=== PATIENT | male | born 1995 | race African-American/Black ===

== ENCOUNTER 2017-07-24 18:21 | Inpatient (IN) | payer BC, MEDICAID ==
[~2017-07-24] VITALS: Ht 144.8 cm; Wt 46.3 kg
[2017-07-24 18:21] VITALS: BP_SYST 125
[~2017-07-24 18:21] MED LIST: ALPR0.2583 PO; AMLO2.5T50 PO; BACL20TA PO; BENA20TA2 PO; CAT3PAT TD; CITR15SO PO; DEPAK250 GT; FAMO20TA8 GT; FLUD0.1T PO; LATA2.5D2 OP; MAGN400T10 GT; MELA5TAB12 PO; METO100T3 PO; PARO20TA51 PO; POTA20PA4 GT; ZOLP5TAB2 PO
[2017-07-24] MEDS ORDERED: NS 500 ML IV ONE ×2 (19:00→19:45)
[2017-07-24] MEDS ORDERED: VANCOMYCIN HCL 1,000 MG in NS 250 ML IV ONE (19:15)
[2017-07-24] MEDS ORDERED: PIPERACILLIN/TAZO 3.375 GM in NS 50 ML IV ONE (19:15)
[2017-07-24 19:26] LABS: MEAN CORPUSCULAR HEMOGLOBIN 32 pg (27-31); MEAN CORPUSCULAR HGB CONC 34 % (32-36); RED CELL DISTRIBUTION WIDTH 13.2 % (9.0-15.0)
[2017-07-24 19:29] LABS: HEMATOCRIT 32.7 % (36-54); HEMOGLOBIN 11.1 g/dL (14.0-18.0); MEAN CORPUSCULAR VOLUME 95 fL (79.0-98.0); RED BLOOD CELL COUNT(AUTO) 3.45 MIL/uL (4.2-6.2)
[2017-07-24] MEDS ORDERED: IPRATROPIUM/ALBUTEROL SULFATE 3 ML AMPUL.NEB INH ONE (19:30)
[2017-07-24 19:35] LABS: CALCIUM 9.8 mg/dL (8.4-11.0)
[2017-07-24] MEDS ORDERED: PIPERACILLIN/TAZOBACTAM 3.375 GM/VIAL (ZOSYN) IV ONE (19:35)
[2017-07-24 19:40] LABS: ALBUMIN 2.4 g/dL (3.4-4.8); PLATELET COUNT (AUTO) 783 K/uL (130-430); TOTAL BILIRUBIN 0.2 mg/dL (0.0-1.0)
[2017-07-24] MEDS ORDERED: POTASSIUM CHLORIDE 20 MEQ/PKT PACKET GT ONE (19:45)
[2017-07-24 19:57] LABS: ATYPICAL LYMPHOCYTES % 0 % (0-0); BAND % (MANUAL) 3 % (0-6); BASOPHILS % (MANUAL) 0 % (0-2); EOSINOPHILS % (MANUAL) 0 % (0-7); LYMPHOCYTES % (MANUAL) 35 % (20-46); METAMYELOCYTES % 2 % (0-0); MONOCYTES % (MANUAL) 6 % (0-11); MYELOCYTES % 4 % (0-0)
[2017-07-24] MEDS ORDERED: VANCOMYCIN HCL 1000 MG/VIAL IV ONE (20:44)
[2017-07-24] MEDS ORDERED: ALBUTEROL SULFATE 0.083% 2.5 MG/3 ML VIAL.NEB INH PRN (20:45)
[2017-07-24 21:33] VITALS: BP_SYST 159
[2017-07-24 21:59] VITALS: BP_SYST 159
[2017-07-25 08:00] VITALS: BP_SYST 131
[2017-07-25] MEDS ORDERED: VALPROIC ACID 250 MG CAPSULE (DEPAKENE) ONE (08:53)
[2017-07-25] MEDS: LEVOFLOXACIN 500 MG/D5W 100 ML IV SCH (08:59)
[2017-07-25] MEDS ORDERED: VALPROIC ACID 250 MG CAPSULE (DEPAKENE) GT SCH (09:00)
[2017-07-25] MEDS ORDERED: BENA10TA2 GT (10:11)
[2017-07-25] MEDS ORDERED: DEXL30CA3 GT (10:11)
[2017-07-25] MEDS ORDERED: PARO-41 GT (10:11)
[2017-07-25] MEDS ORDERED: AMLO5TAB4 GT (10:11)
[2017-07-25] MEDS ORDERED: FLOR.1 GT (10:11)
[2017-07-25] MEDS ORDERED: METO-442 GT (10:19)
[2017-07-25] MEDS ORDERED: GLUXR500 GT (10:19)
[2017-07-25] MEDS ORDERED: NYSCR30 TP (10:19)
[2017-07-25] MEDS ORDERED: [UNRECOGNIZED DRUG - CODE] GT (10:19)
[2017-07-25] MEDS ORDERED: TRIA80OI TP (10:19)
[2017-07-25] MEDS ORDERED: HYD10 GT (10:19)
[2017-07-25] MEDS: D5NS 1,000 ML IV SCH ×2 (10:42→22:35)
[2017-07-25 10:48] LABS: HEMATOCRIT 29.6 % (36-54); HEMOGLOBIN 10.2 g/dL (14.0-18.0); MEAN CORPUSCULAR HEMOGLOBIN 33 pg (27-31); MEAN CORPUSCULAR HGB CONC 35 % (32-36); MEAN CORPUSCULAR VOLUME 94 fL (79.0-98.0); PLATELET COUNT (AUTO) 673 K/uL (130-430); RED BLOOD CELL COUNT(AUTO) 3.15 MIL/uL (4.2-6.2); RED CELL DISTRIBUTION WIDTH 13.7 % (9.0-15.0); WHITE BLOOD COUNT (AUTO) 15.6 K/uL (4.8-10.8)
[2017-07-25 11:00] LABS: CREATININE 0.88 mg/dL (0.55-1.30); POTASSIUM 3.8 mmol/L (3.5-5.1)
[2017-07-25 11:05] LABS: TOTAL BILIRUBIN 0.2 mg/dL (0.0-1.0)
[2017-07-25 11:44] VITALS: BP_SYST 128
[2017-07-25 11:54] LABS: BAND % (MANUAL) 2 % (0-6); BASOPHILS % (MANUAL) 0 % (0-2); EOSINOPHILS % (MANUAL) 0 % (0-7); LYMPHOCYTES % (MANUAL) 18 % (20-46); MONOCYTES % (MANUAL) 13 % (0-11)
[2017-07-25 11:55] LABS: METAMYELOCYTES % 8 % (0-0); MYELOCYTES % 1 % (0-0)
[2017-07-25] MEDS ORDERED: PIPERACILLIN/TAZO 3.375/DEX-IS 50 ML IV SCH (14:45)
[2017-07-25] MEDS ORDERED: COMMUNICATION ORDER XX ONE (15:00)
[2017-07-25] MEDS ORDERED: FLUDROCORTISONE ACETATE 0.1 MG TABLET( FLORINEF) PO ONE (15:45)
[2017-07-25] MEDS ORDERED: FLUDROCORTISONE ACETATE 0.1 MG TABLET( FLORINEF) GT ONE (15:45)
[2017-07-25 16:23] VITALS: BP_SYST 136
[2017-07-25] MEDS: PIPERACILLIN/TAZO 3.375/DEX-IS 50 ML IV SCH ×2 (16:36→22:25)
[2017-07-25] MEDS ORDERED: HYDROCORTISONE 10 MG TABLET (CORTEF) PO SCH (18:00)
[2017-07-25 19:55] VITALS: BP_SYST 144
[2017-07-25] MEDS: LEVALBUTEROL HCL 0.63 MG/3 ML VIAL.NEB INH SCH (20:47)
[2017-07-25] MEDS: METOPROLOL TARTRATE 50 MG TABLET GT SCH (22:22)
[2017-07-25] MEDS: amLODIPine BESYLATE 5 MG TABLET GT SCH (22:23)
[2017-07-25] MEDS: VALPROIC ACID ORAL SYRUP 250 MG/5 ML UDC GT SCH (22:24)
[2017-07-26 00:07] VITALS: BP_SYST 128
[2017-07-26] MEDS: LEVALBUTEROL HCL 0.63 MG/3 ML VIAL.NEB INH SCH ×4 (02:21→20:15)
[2017-07-26] MEDS: PIPERACILLIN/TAZO 3.375/DEX-IS 50 ML IV SCH ×4 (03:46→22:22)
[2017-07-26 07:33] LABS: ALBUMIN 1.8 g/dL (3.4-4.8); CALCIUM 9.1 mg/dL (8.4-11.0); POTASSIUM 3.9 mmol/L (3.5-5.1); TOTAL BILIRUBIN 0.2 mg/dL (0.0-1.0)
[2017-07-26 08:00] VITALS: BP_SYST 149
[2017-07-26 08:46] LABS: HEMOGLOBIN 9.9 g/dL (14.0-18.0); MEAN CORPUSCULAR HEMOGLOBIN 32 pg (27-31); MEAN CORPUSCULAR HGB CONC 34 % (32-36); MEAN CORPUSCULAR VOLUME 94 fL (79.0-98.0); PLATELET COUNT (AUTO) 671 K/uL (130-430); RED BLOOD CELL COUNT(AUTO) 3.09 MIL/uL (4.2-6.2); WHITE BLOOD COUNT (AUTO) 16.7 K/uL (4.8-10.8)
[2017-07-26 08:55] LABS: BAND % (MANUAL) 6 % (0-6); BASOPHILS % (MANUAL) 0 % (0-2); EOSINOPHILS % (MANUAL) 0 % (0-7); LYMPHOCYTES % (MANUAL) 20 % (20-46); METAMYELOCYTES % 4 % (0-0); MONOCYTES % (MANUAL) 12 % (0-11); MYELOCYTES % 2 % (0-0)
[2017-07-26] MEDS: amLODIPine BESYLATE 5 MG TABLET GT SCH ×2 (09:46→20:33)
[2017-07-26] MEDS: HYDROCORTISONE 10 MG TABLET (CORTEF) GT SCH ×2 (09:48→17:51)
[2017-07-26] MEDS: METOPROLOL TARTRATE 50 MG TABLET GT SCH ×2 (09:48→20:30)
[2017-07-26] MEDS: FLUDROCORTISONE ACETATE 0.1 MG TABLET( FLORINEF) GT SCH (09:48)
[2017-07-26] MEDS: VALPROIC ACID ORAL SYRUP 250 MG/5 ML UDC GT SCH ×2 (09:49→20:35)
[2017-07-26] MEDS: LEVOFLOXACIN 500 MG/D5W 100 ML IV SCH (11:21)
[2017-07-26 12:01] VITALS: BP_SYST 130
[2017-07-26 16:07] VITALS: BP_SYST 128
[2017-07-26] MEDS: D5/0.45 NS 1,000 ML IV SCH (16:38)
[2017-07-26 20:15] VITALS: BP_SYST 169
[2017-07-26] MEDS: PARoxetine HCL 20 MG TABLET GT SCH (20:34)
[2017-07-27 00:41] VITALS: BP_SYST 131
[2017-07-27] MEDS: LEVALBUTEROL HCL 0.63 MG/3 ML VIAL.NEB INH SCH ×4 (01:09→20:26)
[2017-07-27] MEDS: PIPERACILLIN/TAZO 3.375/DEX-IS 50 ML IV SCH ×4 (04:13→21:51)
[2017-07-27 06:58] LABS: EOSINOPHILS % (AUTO) 0.1 % (0.0-4.0); LYMPHOCYTES % (AUTO) 17.6 % (20.5-51.5); MONOCYTES % (AUTO) 9.9 % (1.7-9.3)
[2017-07-27 07:09] LABS: CALCIUM 8.9 mg/dL (8.4-11.0); CREATININE 0.9 mg/dL (0.55-1.30)
[2017-07-27 07:10] LABS: BASOPHILS % (AUTO) 0.1 % (0.0-2.0); HEMATOCRIT 26.9 % (36-54); HEMOGLOBIN 9.4 g/dL (14.0-18.0); LYMPHOCYTES # (AUTO) 2.7 K/uL (1.0-5.5); MEAN CORPUSCULAR HEMOGLOBIN 33 pg (27-31); MEAN CORPUSCULAR HGB CONC 35 % (32-36); MEAN CORPUSCULAR VOLUME 94 fL (79.0-98.0); MONOCYTES # (AUTO) 1.5 K/uL (0.0-1.0); NEUTROPHILS # (AUTO) 11.1 K/uL (1.8-7.7); RED BLOOD CELL COUNT(AUTO) 2.85 MIL/uL (4.2-6.2); RED CELL DISTRIBUTION WIDTH 12.8 % (9.0-15.0); WHITE BLOOD COUNT (AUTO) 15.3 K/uL (4.8-10.8)
[2017-07-27 07:36] LABS: PLATELET COUNT (AUTO) 862 K/uL (130-430)
[2017-07-27 08:06] VITALS: BP_SYST 158
[2017-07-27 08:33] LABS: NEUTROPHILS % (AUTO) 72.3 % (40.0-70.0)
[2017-07-27] MEDS: METOPROLOL TARTRATE 50 MG TABLET GT SCH ×2 (08:46→20:12)
[2017-07-27] MEDS: FLUDROCORTISONE ACETATE 0.1 MG TABLET( FLORINEF) GT SCH (08:47)
[2017-07-27] MEDS: amLODIPine BESYLATE 5 MG TABLET GT SCH ×2 (08:48→20:13)
[2017-07-27] MEDS: HYDROCORTISONE 10 MG TABLET (CORTEF) GT SCH ×2 (08:48→18:00)
[2017-07-27] MEDS: PARoxetine HCL 20 MG TABLET GT SCH ×2 (08:48→20:12)
[2017-07-27] MEDS: VALPROIC ACID ORAL SYRUP 250 MG/5 ML UDC GT SCH ×2 (08:51→20:13)
[2017-07-27] MEDS: LEVOFLOXACIN 500 MG/D5W 100 ML IV SCH (08:53)
[2017-07-27] MEDS: D5/0.45 NS 1,000 ML IV SCH (10:42)
[2017-07-27] MEDS ORDERED: POTASSIUM CHLORIDE 20 MEQ/PKT PACKET PO ONE (11:15)
[2017-07-27 12:19] VITALS: BP_SYST 142
[2017-07-27 16:00] VITALS: BP_SYST 121
[2017-07-27 16:03] VITALS: BP_SYST 121
[2017-07-27 20:10] VITALS: BP_SYST 162
[2017-07-28] VITALS (7 sets, daily range): BP systolic 115–159
[2017-07-28] MEDS: LEVALBUTEROL HCL 0.63 MG/3 ML VIAL.NEB INH SCH ×4 (01:41→20:34)
[2017-07-28] MEDS: PIPERACILLIN/TAZO 3.375/DEX-IS 50 ML IV SCH ×4 (04:31→21:40)
[2017-07-28 07:12] LABS: BASOPHILS % (AUTO) 0.2 % (0.0-2.0); EOSINOPHILS % (AUTO) 0.1 % (0.0-4.0); HEMOGLOBIN 10.1 g/dL (14.0-18.0); LYMPHOCYTES # (AUTO) 2.6 K/uL (1.0-5.5); LYMPHOCYTES % (AUTO) 18.6 % (20.5-51.5); MEAN CORPUSCULAR HEMOGLOBIN 33 pg (27-31); MEAN CORPUSCULAR HGB CONC 35 % (32-36); MEAN CORPUSCULAR VOLUME 94 fL (79.0-98.0); MONOCYTES # (AUTO) 1.7 K/uL (0.0-1.0); MONOCYTES % (AUTO) 12.3 % (1.7-9.3); NEUTROPHILS # (AUTO) 9.6 K/uL (1.8-7.7); NEUTROPHILS % (AUTO) 68.8 % (40.0-70.0); RED BLOOD CELL COUNT(AUTO) 3.07 MIL/uL (4.2-6.2); RED CELL DISTRIBUTION WIDTH 13.3 % (9.0-15.0)
[2017-07-28 07:26] LABS: PLATELET COUNT (AUTO) 982 K/uL (130-430)
[2017-07-28 07:27] LABS: WHITE BLOOD COUNT (AUTO) 13.9 K/uL (4.8-10.8)
[2017-07-28 07:34] LABS: CALCIUM 9.7 mg/dL (8.4-11.0); CREATININE 0.91 mg/dL (0.55-1.30); POTASSIUM 3.5 mmol/L (3.5-5.1)
[2017-07-28] MEDS: VALPROIC ACID ORAL SYRUP 250 MG/5 ML UDC GT SCH ×2 (09:04→21:40)
[2017-07-28] MEDS: LEVOFLOXACIN 500 MG/D5W 100 ML IV SCH (09:05)
[2017-07-28] MEDS: FLUDROCORTISONE ACETATE 0.1 MG TABLET( FLORINEF) GT SCH (09:05)
[2017-07-28] MEDS: METOPROLOL TARTRATE 50 MG TABLET GT SCH ×2 (09:06→21:42)
[2017-07-28] MEDS: amLODIPine BESYLATE 5 MG TABLET GT SCH ×2 (09:07→21:42)
[2017-07-28] MEDS: PARoxetine HCL 20 MG TABLET GT SCH ×2 (09:08→21:42)
[2017-07-28] MEDS: HYDROCORTISONE 10 MG TABLET (CORTEF) GT SCH ×2 (09:08→17:19)
[2017-07-28] MEDS: D5/0.45 NS 1,000 ML IV SCH (17:41)
[2017-07-29] MEDS ORDERED: ACETAMINOPHEN 650 MG/20.3 ML UDC GT PRN (01:00)
[2017-07-29 01:04] VITALS: BP_SYST 157
[2017-07-29] MEDS: LEVALBUTEROL HCL 0.63 MG/3 ML VIAL.NEB INH SCH ×4 (01:07→19:36)
[2017-07-29] MEDS: PIPERACILLIN/TAZO 3.375/DEX-IS 50 ML IV SCH ×4 (03:43→22:10)
[2017-07-29 04:11] VITALS: BP_SYST 155
[2017-07-29 06:38] LABS: BASOPHILS % (AUTO) 0.1 % (0.0-2.0); EOSINOPHILS % (AUTO) 0.2 % (0.0-4.0); HEMATOCRIT 31.2 % (36-54); HEMOGLOBIN 10.6 g/dL (14.0-18.0); LYMPHOCYTES # (AUTO) 2.8 K/uL (1.0-5.5); LYMPHOCYTES % (AUTO) 20.9 % (20.5-51.5); MEAN CORPUSCULAR HEMOGLOBIN 32 pg (27-31); MEAN CORPUSCULAR HGB CONC 34 % (32-36); MEAN CORPUSCULAR VOLUME 94 fL (79.0-98.0); MONOCYTES # (AUTO) 1.5 K/uL (0.0-1.0); MONOCYTES % (AUTO) 11.3 % (1.7-9.3); NEUTROPHILS # (AUTO) 8.9 K/uL (1.8-7.7); NEUTROPHILS % (AUTO) 67.5 % (40.0-70.0); RED BLOOD CELL COUNT(AUTO) 3.33 MIL/uL (4.2-6.2); RED CELL DISTRIBUTION WIDTH 13.1 % (9.0-15.0); WHITE BLOOD COUNT (AUTO) 13.2 K/uL (4.8-10.8)
[2017-07-29 06:59] LABS: CALCIUM 10.2 mg/dL (8.4-11.0); CREATININE 0.86 mg/dL (0.55-1.30); POTASSIUM 3.1 mmol/L (3.5-5.1)
[2017-07-29 07:32] LABS: PLATELET COUNT (AUTO) 967 K/uL (130-430)
[2017-07-29 07:55] VITALS: BP_SYST 170
[2017-07-29] MEDS: PARoxetine HCL 20 MG TABLET GT SCH ×2 (08:38→20:18)
[2017-07-29] MEDS: HYDROCORTISONE 10 MG TABLET (CORTEF) GT SCH ×2 (08:39→17:42)
[2017-07-29] MEDS: METOPROLOL TARTRATE 50 MG TABLET GT SCH ×2 (08:40→20:18)
[2017-07-29] MEDS: amLODIPine BESYLATE 5 MG TABLET GT SCH ×2 (08:41→20:17)
[2017-07-29] MEDS: FLUDROCORTISONE ACETATE 0.1 MG TABLET( FLORINEF) GT SCH (08:42)
[2017-07-29] MEDS: LEVOFLOXACIN 500 MG/D5W 100 ML IV SCH (08:43)
[2017-07-29] MEDS: VALPROIC ACID ORAL SYRUP 250 MG/5 ML UDC GT SCH ×2 (08:44→20:15)
[2017-07-29] MEDS ORDERED: POTASSIUM CHLORIDE 20 MEQ/PKT PACKET PO ONE (10:30)
[2017-07-29 12:00] VITALS: BP_SYST 158
[2017-07-29 16:00] VITALS: BP_SYST 132
[2017-07-29 20:00] VITALS: BP_SYST 162
[2017-07-29] MEDS: cloNIDine HCL 0.1 MG TABLET GT PRN (20:19)
[2017-07-29] MEDS: D5/0.45 NS 1,000 ML IV SCH (23:26)
[2017-07-30] MEDS: LEVALBUTEROL HCL 0.63 MG/3 ML VIAL.NEB INH SCH ×4 (00:50→19:58)
[2017-07-30 00:54] VITALS: BP_SYST 145
[2017-07-30] MEDS: PIPERACILLIN/TAZO 3.375/DEX-IS 50 ML IV SCH ×4 (03:08→23:33)
[2017-07-30] MEDS: D5/0.45 NS 1,000 ML IV SCH (05:28)
[2017-07-30 06:35] LABS: BASOPHILS % (AUTO) 0.3 % (0.0-2.0); EOSINOPHILS # (AUTO) 0.1 K/uL (0.0-0.4); EOSINOPHILS % (AUTO) 0.4 % (0.0-4.0); HEMATOCRIT 27.4 % (36-54); HEMOGLOBIN 9.3 g/dL (14.0-18.0); LYMPHOCYTES # (AUTO) 3.3 K/uL (1.0-5.5); LYMPHOCYTES % (AUTO) 23.6 % (20.5-51.5); MEAN CORPUSCULAR HEMOGLOBIN 31 pg (27-31); MEAN CORPUSCULAR HGB CONC 34 % (32-36); MEAN CORPUSCULAR VOLUME 91 fL (79.0-98.0); MONOCYTES # (AUTO) 1.3 K/uL (0.0-1.0); MONOCYTES % (AUTO) 9.3 % (1.7-9.3); NEUTROPHILS # (AUTO) 9.3 K/uL (1.8-7.7); NEUTROPHILS % (AUTO) 66.4 % (40.0-70.0); RED BLOOD CELL COUNT(AUTO) 2.99 MIL/uL (4.2-6.2); RED CELL DISTRIBUTION WIDTH 13.4 % (9.0-15.0)
[2017-07-30 06:46] LABS: PLATELET COUNT (AUTO) 837 K/uL (130-430)
[2017-07-30 06:49] LABS: CREATININE 0.82 mg/dL (0.55-1.30); POTASSIUM 3.3 mmol/L (3.5-5.1)
[2017-07-30 07:45] VITALS: BP_SYST 167
[2017-07-30] MEDS: HYDROCORTISONE 10 MG TABLET (CORTEF) GT SCH ×2 (08:28→17:13)
[2017-07-30] MEDS: PARoxetine HCL 20 MG TABLET GT SCH ×2 (08:28→20:42)
[2017-07-30] MEDS: METOPROLOL TARTRATE 50 MG TABLET GT SCH ×2 (08:28→20:44)
[2017-07-30] MEDS: FLUDROCORTISONE ACETATE 0.1 MG TABLET( FLORINEF) GT SCH (08:29)
[2017-07-30] MEDS: amLODIPine BESYLATE 5 MG TABLET GT SCH ×2 (08:30→20:43)
[2017-07-30] MEDS: LEVOFLOXACIN 500 MG/D5W 100 ML IV SCH (08:31)
[2017-07-30] MEDS: VALPROIC ACID ORAL SYRUP 250 MG/5 ML UDC GT SCH ×2 (08:33→20:41)
[2017-07-30] MEDS ORDERED: POTASSIUM CHLORIDE 20 MEQ/PKT PACKET GT ONE (10:00)
[2017-07-30 11:42] VITALS: BP_SYST 148
[2017-07-30 16:47] VITALS: BP_SYST 148
[2017-07-30 17:22] VITALS: BP_SYST 144
[2017-07-30 20:00] VITALS: BP_SYST 167
[2017-07-30] MEDS: cloNIDine HCL 0.1 MG TABLET GT PRN (20:42)
[2017-07-31] VITALS: BP_SYST 124
[2017-07-31] MEDS: LEVALBUTEROL HCL 0.63 MG/3 ML VIAL.NEB INH SCH ×4 (00:52→19:29)
[2017-07-31] MEDS: D5/0.45 NS 1,000 ML IV SCH (05:02)
[2017-07-31] MEDS: PIPERACILLIN/TAZO 3.375/DEX-IS 50 ML IV SCH ×3 (05:15→18:34)
[2017-07-31 06:31] LABS: BASOPHILS % (AUTO) 0.3 % (0.0-2.0); EOSINOPHILS # (AUTO) 0.1 K/uL (0.0-0.4); EOSINOPHILS % (AUTO) 0.4 % (0.0-4.0); HEMATOCRIT 27.3 % (36-54); HEMOGLOBIN 9.4 g/dL (14.0-18.0); LYMPHOCYTES # (AUTO) 3.9 K/uL (1.0-5.5); LYMPHOCYTES % (AUTO) 24.4 % (20.5-51.5); MEAN CORPUSCULAR HEMOGLOBIN 32 pg (27-31); MEAN CORPUSCULAR HGB CONC 34 % (32-36); MEAN CORPUSCULAR VOLUME 92 fL (79.0-98.0); MONOCYTES # (AUTO) 1.2 K/uL (0.0-1.0); MONOCYTES % (AUTO) 7.7 % (1.7-9.3); NEUTROPHILS % (AUTO) 67.2 % (40.0-70.0); RED BLOOD CELL COUNT(AUTO) 2.96 MIL/uL (4.2-6.2); RED CELL DISTRIBUTION WIDTH 13.4 % (9.0-15.0); WHITE BLOOD COUNT (AUTO) 16.2 K/uL (4.8-10.8)
[2017-07-31 07:01] LABS: CALCIUM 10.2 mg/dL (8.4-11.0); CREATININE 0.89 mg/dL (0.55-1.30); POTASSIUM 3.7 mmol/L (3.5-5.1)
[2017-07-31 08:14] LABS: PLATELET COUNT (AUTO) 830 K/uL (130-430)
[2017-07-31 08:36] VITALS: BP_SYST 138
[2017-07-31] MEDS: VALPROIC ACID ORAL SYRUP 250 MG/5 ML UDC GT SCH ×2 (09:23→20:14)
[2017-07-31] MEDS: LEVOFLOXACIN 500 MG/D5W 100 ML IV SCH (09:23)
[2017-07-31] MEDS: FLUDROCORTISONE ACETATE 0.1 MG TABLET( FLORINEF) GT SCH (09:24)
[2017-07-31] MEDS: HYDROCORTISONE 10 MG TABLET (CORTEF) GT SCH ×2 (09:24→18:34)
[2017-07-31] MEDS: amLODIPine BESYLATE 5 MG TABLET GT SCH ×2 (09:24→20:17)
[2017-07-31] MEDS: PARoxetine HCL 20 MG TABLET GT SCH ×2 (09:25→20:14)
[2017-07-31] MEDS: METOPROLOL TARTRATE 50 MG TABLET GT SCH ×2 (09:25→20:15)
[2017-07-31 12:27] VITALS: BP_SYST 159
[2017-07-31] MEDS ORDERED: BARIUM SULFATE 135 ML SUSP.RECON (E-Z-HD) PO ONE (13:10)
[2017-07-31 16:09] VITALS: BP_SYST 156
[2017-07-31 20:03] VITALS: BP_SYST 175
[2017-07-31 22:20] VITALS: BP_SYST 158
[2017-08-01] MEDS: PIPERACILLIN/TAZO 3.375/DEX-IS 50 ML IV SCH ×4 (00:04→17:10)
[2017-08-01] MEDS: LEVALBUTEROL HCL 0.63 MG/3 ML VIAL.NEB INH SCH ×4 (01:14→20:44)
[2017-08-01 01:29] VITALS: BP_SYST 148
[2017-08-01] MEDS: D5/0.45 NS 1,000 ML IV SCH (05:28)
[2017-08-01 06:53] LABS: BASOPHILS % (AUTO) 0.3 % (0.0-2.0); EOSINOPHILS # (AUTO) 0.1 K/uL (0.0-0.4); EOSINOPHILS % (AUTO) 0.5 % (0.0-4.0); LYMPHOCYTES # (AUTO) 3.4 K/uL (1.0-5.5); LYMPHOCYTES % (AUTO) 23.1 % (20.5-51.5); MEAN CORPUSCULAR HEMOGLOBIN 32 pg (27-31); MEAN CORPUSCULAR HGB CONC 35 % (32-36); MEAN CORPUSCULAR VOLUME 93 fL (79.0-98.0); NEUTROPHILS # (AUTO) 10.3 K/uL (1.8-7.7); NEUTROPHILS % (AUTO) 69.1 % (40.0-70.0); RED BLOOD CELL COUNT(AUTO) 3.13 MIL/uL (4.2-6.2); RED CELL DISTRIBUTION WIDTH 13.4 % (9.0-15.0); WHITE BLOOD COUNT (AUTO) 14.8 K/uL (4.8-10.8)
[2017-08-01 07:06] LABS: PLATELET COUNT (AUTO) 847 K/uL (130-430)
[2017-08-01 08:00] VITALS: BP_SYST 186
[2017-08-01] MEDS: LEVOFLOXACIN 500 MG/D5W 100 ML IV SCH (09:33)
[2017-08-01] MEDS: FLUDROCORTISONE ACETATE 0.1 MG TABLET( FLORINEF) GT SCH (09:34)
[2017-08-01] MEDS: VALPROIC ACID ORAL SYRUP 250 MG/5 ML UDC GT SCH ×2 (09:34→20:35)
[2017-08-01] MEDS: amLODIPine BESYLATE 5 MG TABLET GT SCH ×2 (09:35→20:36)
[2017-08-01] MEDS: PARoxetine HCL 20 MG TABLET GT SCH ×2 (09:35→20:35)
[2017-08-01] MEDS: HYDROCORTISONE 10 MG TABLET (CORTEF) GT SCH ×2 (09:38→17:09)
[2017-08-01] MEDS: METOPROLOL TARTRATE 50 MG TABLET GT SCH ×2 (09:39→20:36)
[2017-08-01 12:44] VITALS: BP_SYST 151
[2017-08-01 16:53] VITALS: BP_SYST 147
[2017-08-01 20:10] VITALS: BP_SYST 178
[2017-08-02] MEDS: LEVALBUTEROL HCL 0.63 MG/3 ML VIAL.NEB INH SCH ×4 (00:21→20:34)
[2017-08-02] MEDS: PIPERACILLIN/TAZO 3.375/DEX-IS 50 ML IV SCH ×5 (00:38→23:47)
[2017-08-02 01:18] VITALS: BP_SYST 188
[2017-08-02] MEDS: D5/0.45 NS 1,000 ML IV SCH ×2 (05:34→23:47)
[2017-08-02 07:47] VITALS: BP_SYST 188
[2017-08-02] MEDS: LEVOFLOXACIN 500 MG/D5W 100 ML IV SCH (10:38)
[2017-08-02] MEDS: VALPROIC ACID ORAL SYRUP 250 MG/5 ML UDC GT SCH ×2 (10:38→20:03)
[2017-08-02] MEDS: HYDROCORTISONE 10 MG TABLET (CORTEF) GT SCH ×2 (10:39→17:56)
[2017-08-02] MEDS: FLUDROCORTISONE ACETATE 0.1 MG TABLET( FLORINEF) GT SCH (10:39)
[2017-08-02] MEDS: PARoxetine HCL 20 MG TABLET GT SCH ×2 (10:39→20:03)
[2017-08-02] MEDS: amLODIPine BESYLATE 5 MG TABLET GT SCH ×2 (10:40→20:03)
[2017-08-02] MEDS: METOPROLOL TARTRATE 50 MG TABLET GT SCH ×2 (10:41→20:02)
[2017-08-02 12:34] VITALS: BP_SYST 144
[2017-08-02 16:41] VITALS: BP_SYST 137
[2017-08-02] MEDS: cloNIDine HCL 0.1 MG TABLET GT PRN (19:59)
[2017-08-02 20:01] VITALS: BP_SYST 179
[2017-08-03 00:51] VITALS: BP_SYST 137
[2017-08-03] MEDS: LEVALBUTEROL HCL 0.63 MG/3 ML VIAL.NEB INH SCH ×4 (01:06→19:45)
[2017-08-03] MEDS: PIPERACILLIN/TAZO 3.375/DEX-IS 50 ML IV SCH ×3 (05:06→17:53)
[2017-08-03] MEDS: VALPROIC ACID ORAL SYRUP 250 MG/5 ML UDC GT SCH ×2 (09:17→20:52)
[2017-08-03] MEDS: FLUDROCORTISONE ACETATE 0.1 MG TABLET( FLORINEF) GT SCH (09:17)
[2017-08-03] MEDS: PARoxetine HCL 20 MG TABLET GT SCH ×2 (09:18→20:54)
[2017-08-03] MEDS: HYDROCORTISONE 10 MG TABLET (CORTEF) GT SCH ×2 (09:18→17:48)
[2017-08-03] MEDS: amLODIPine BESYLATE 5 MG TABLET GT SCH ×2 (09:19→20:54)
[2017-08-03] MEDS: METOPROLOL TARTRATE 50 MG TABLET GT SCH ×2 (09:19→20:53)
[2017-08-03] MEDS: LEVOFLOXACIN 500 MG/D5W 100 ML IV SCH (09:20)
[2017-08-03 11:32] VITALS: BP_SYST 142
[2017-08-03] MEDS ORDERED: INSULIN REGULAR, HUMAN 100 UNITS/ML, 10 ML VIAL (novoLIN R) SUBCUT PRN (12:15)
[2017-08-03] MEDS ORDERED: DEXTROSE 50% JECT 50 ML DISP.SYRIN IVP PRN (12:15)
[2017-08-03 15:44] VITALS: BP_SYST 157
[2017-08-03 23:20] VITALS: BP_SYST 143
[2017-08-04] MEDS: PIPERACILLIN/TAZO 3.375/DEX-IS 50 ML IV SCH ×2 (00:36→05:24)
[2017-08-04] MEDS: LEVALBUTEROL HCL 0.63 MG/3 ML VIAL.NEB INH SCH ×4 (00:55→19:42)
[2017-08-04 07:38] LABS: BASOPHILS % (AUTO) 0.2 % (0.0-2.0); EOSINOPHILS # (AUTO) 0.1 K/uL (0.0-0.4); EOSINOPHILS % (AUTO) 0.6 % (0.0-4.0); HEMATOCRIT 31.5 % (36-54); HEMOGLOBIN 10.5 g/dL (14.0-18.0); LYMPHOCYTES # (AUTO) 4.5 K/uL (1.0-5.5); LYMPHOCYTES % (AUTO) 31.1 % (20.5-51.5); MEAN CORPUSCULAR HEMOGLOBIN 31 pg (27-31); MEAN CORPUSCULAR HGB CONC 33 % (32-36); MEAN CORPUSCULAR VOLUME 92 fL (79.0-98.0); MONOCYTES # (AUTO) 1.4 K/uL (0.0-1.0); MONOCYTES % (AUTO) 9.5 % (1.7-9.3); NEUTROPHILS # (AUTO) 8.3 K/uL (1.8-7.7); RED BLOOD CELL COUNT(AUTO) 3.43 MIL/uL (4.2-6.2); RED CELL DISTRIBUTION WIDTH 13.4 % (9.0-15.0); WHITE BLOOD COUNT (AUTO) 14.3 K/uL (4.8-10.8)
[2017-08-04 07:39] LABS: CALCIUM 9.7 mg/dL (8.4-11.0); CREATININE 0.94 mg/dL (0.55-1.30)
[2017-08-04 08:00] VITALS: BP_SYST 146
[2017-08-04 08:00] LABS: POTASSIUM 2.7 mmol/L (3.5-5.1)
[2017-08-04 08:15] LABS: PLATELET COUNT (AUTO) 774 K/uL (130-430)
[2017-08-04] MEDS ORDERED: POTASSIUM CHLORIDE 20 MEQ TAB.PRT.SR GT ONE (08:30)
[2017-08-04] MEDS ORDERED: POTASSIUM CHLORIDE 20 MEQ/PKT PACKET PO ONE (09:00)
[2017-08-04] MEDS ORDERED: POTASSIUM CHLORIDE 40 MEQ in NS 250 ML IV ONE (09:00)
[2017-08-04] MEDS: LEVOFLOXACIN 500 MG/D5W 100 ML IV SCH (09:00)
[2017-08-04] MEDS ORDERED: cloNIDine HCL 0.1 MG/24 HR PATCH.TDWK TD SCH (09:00)
[2017-08-04] MEDS: VALPROIC ACID ORAL SYRUP 250 MG/5 ML UDC GT SCH ×2 (09:01→20:53)
[2017-08-04] MEDS: FLUDROCORTISONE ACETATE 0.1 MG TABLET( FLORINEF) GT SCH (09:02)
[2017-08-04] MEDS: PARoxetine HCL 20 MG TABLET GT SCH ×2 (09:03→20:54)
[2017-08-04] MEDS: METOPROLOL TARTRATE 50 MG TABLET GT SCH ×2 (09:04→20:55)
[2017-08-04] MEDS: amLODIPine BESYLATE 5 MG TABLET GT SCH ×2 (09:04→20:55)
[2017-08-04] MEDS: HYDROCORTISONE 10 MG TABLET (CORTEF) GT SCH ×2 (09:05→17:07)
[2017-08-04 11:35] LABS: NEUTROPHILS % (AUTO) 58.6 % (40.0-70.0)
[2017-08-04 12:00] VITALS: BP_SYST 137
[2017-08-04] MEDS ORDERED: POTASSIUM CHLORIDE 20 MEQ TAB.PRT.SR PO ONE (13:00)
[2017-08-04 16:00] VITALS: BP_SYST 145
[2017-08-04 20:32] VITALS: BP_SYST 156
[2017-08-04] MEDS: POTASSIUM CHLORIDE 20 MEQ TAB.PRT.SR PO SCH (20:54)
[2017-08-04] MEDS: cloNIDine HCL 0.1 MG TABLET GT PRN (22:43)
[2017-08-04 23:00] VITALS: BP_SYST 185
[2017-08-04 23:49] VITALS: BP_SYST 138
[2017-08-05] MEDS: LEVALBUTEROL HCL 0.63 MG/3 ML VIAL.NEB INH SCH ×4 (00:55→20:01)
[2017-08-05 06:50] LABS: BASOPHILS % (AUTO) 0.4 % (0.0-2.0); EOSINOPHILS # (AUTO) 0.1 K/uL (0.0-0.4); EOSINOPHILS % (AUTO) 0.7 % (0.0-4.0); HEMATOCRIT 31.5 % (36-54); HEMOGLOBIN 10.6 g/dL (14.0-18.0); LYMPHOCYTES % (AUTO) 34.8 % (20.5-51.5); MEAN CORPUSCULAR HEMOGLOBIN 31 pg (27-31); MEAN CORPUSCULAR HGB CONC 34 % (32-36); MEAN CORPUSCULAR VOLUME 92 fL (79.0-98.0); MONOCYTES % (AUTO) 9.1 % (1.7-9.3); NEUTROPHILS # (AUTO) 6.3 K/uL (1.8-7.7); PLATELET COUNT (AUTO) 672 K/uL (130-430); RED BLOOD CELL COUNT(AUTO) 3.43 MIL/uL (4.2-6.2); RED CELL DISTRIBUTION WIDTH 13.9 % (9.0-15.0); WHITE BLOOD COUNT (AUTO) 11.4 K/uL (4.8-10.8)
[2017-08-05 07:12] VITALS: BP_SYST 138
[2017-08-05 07:15] LABS: CALCIUM 9.7 mg/dL (8.4-11.0); CREATININE 1.22 mg/dL (0.55-1.30); POTASSIUM 4.2 mmol/L (3.5-5.1)
[2017-08-05 08:00] VITALS: BP_SYST 158
[2017-08-05] MEDS: HYDROCORTISONE 10 MG TABLET (CORTEF) GT SCH ×2 (10:16→17:29)
[2017-08-05] MEDS: amLODIPine BESYLATE 5 MG TABLET GT SCH ×2 (10:17→20:58)
[2017-08-05] MEDS: POTASSIUM CHLORIDE 20 MEQ TAB.PRT.SR PO SCH ×2 (10:18→20:58)
[2017-08-05] MEDS: PARoxetine HCL 20 MG TABLET GT SCH ×2 (10:18→20:57)
[2017-08-05] MEDS: METOPROLOL TARTRATE 50 MG TABLET GT SCH ×2 (10:19→20:58)
[2017-08-05] MEDS: FLUDROCORTISONE ACETATE 0.1 MG TABLET( FLORINEF) GT SCH (10:21)
[2017-08-05] MEDS: LEVOFLOXACIN 500 MG/D5W 100 ML IV SCH (10:21)
[2017-08-05] MEDS: VALPROIC ACID ORAL SYRUP 250 MG/5 ML UDC GT SCH ×2 (10:21→20:56)
[2017-08-05 11:29] VITALS: BP_SYST 136
[2017-08-05 15:29] VITALS: BP_SYST 132
[2017-08-06 00:08] VITALS: BP_SYST 182
[2017-08-06] MEDS: LEVALBUTEROL HCL 0.63 MG/3 ML VIAL.NEB INH SCH ×3 (01:00→13:25)
[2017-08-06 04:00] VITALS: BP_SYST 150
[2017-08-06] MEDS: HYDROCORTISONE 10 MG TABLET (CORTEF) GT SCH (08:55)
[2017-08-06] MEDS: VALPROIC ACID ORAL SYRUP 250 MG/5 ML UDC GT SCH (08:55)
[2017-08-06] MEDS: PARoxetine HCL 20 MG TABLET GT SCH (08:56)
[2017-08-06] MEDS: FLUDROCORTISONE ACETATE 0.1 MG TABLET( FLORINEF) GT SCH (09:01)
[2017-08-06] MEDS: METOPROLOL TARTRATE 50 MG TABLET GT SCH (09:01)
[2017-08-06] MEDS: POTASSIUM CHLORIDE 20 MEQ TAB.PRT.SR PO SCH (09:01)
[2017-08-06] MEDS: amLODIPine BESYLATE 5 MG TABLET GT SCH (09:02)
[2017-08-06] MEDS: LEVOFLOXACIN 500 MG/D5W 100 ML IV SCH (09:03)
[2017-08-06 13:12] VITALS: BP_SYST 148
[2017-08-06 16:16] VITALS: BP_SYST 148
[2017-08-06 16:20] VITALS: BP_SYST 140
== END 2017-08-06 15:47 | disposition home or self-care (01) | DRG 179 ==
LOC: SED 18:21 → STU 20:36 → SMU 07-31 11:33
PROVIDERS: ADMIT Internal Medicine Hospice and Palliative Medicine; ATTEND Internal Medicine Hospice and Palliative Medicine
DX: J69.0 Pneumonitis due to inhalation of food and vomit (principal); R56.9 Unspecified convulsions; M41.9 Scoliosis, unspecified; Z93.1 Gastrostomy status; E11.9 Type 2 diabetes mellitus without complications; D47.3 Essential (hemorrhagic) thrombocythemia; I10 Essential (primary) hypertension; F88 Other disorders of psychological development; Z79.899 Other long term (current) drug therapy
CPT/HCPCS: 36415; 71045; 74230; 80048; 80053; 80164-TC; 82962; 83605; 85007; 85025; 85027; 87040-TC; 92610-GN; 92611-GN; 94640; 94760; 96365; 96366; 96367; 99285; J1815; J1956; J2543; J3370; J3480; J7042; J7050

== ENCOUNTER 2017-08-08 09:51 | Inpatient (IN) | payer BC, MEDICAID ==
[~2017-08-08] VITALS: Ht 149.9 cm; Wt 43.1 kg
[~2017-08-08 09:51] MED LIST changes: -AMLO2.5T50 PO; +AMLO5TAB4 GT; +BENA10TA2 GT; -BENA20TA2 PO; +DEXL30CA3 GT; +FLOR.1 GT; -FLUD0.1T PO; +GLUXR500 GT; +HYD10 GT; +METO-442 GT; -METO100T3 PO; +NYSCR30 TP; +PARO-41 GT; -PARO20TA51 PO; +TRIA80OI TP; +[UNRECOGNIZED DRUG - CODE] GT
[2017-08-08 10:00] VITALS: BP_SYST 158
[2017-08-08] MEDS ORDERED: ONDANSETRON 4 MG ODT TAB PO ONE (10:30)
[2017-08-08] MEDS ORDERED: ONDANSETRON HCL 4 MG/5 ML UDC PO ONE (11:00)
[2017-08-08 11:26] LABS: EOSINOPHILS # (AUTO) 0.2 K/uL (0.0-0.4); EOSINOPHILS % (AUTO) 0.9 % (0.0-4.0); HEMATOCRIT 31.9 % (36-54); LYMPHOCYTES # (AUTO) 1.5 K/uL (1.0-5.5)
[2017-08-08 11:31] LABS: BASOPHILS % (AUTO) 0.2 % (0.0-2.0); HEMOGLOBIN 10.8 g/dL (14.0-18.0); LYMPHOCYTES % (AUTO) 8.2 % (20.5-51.5); MEAN CORPUSCULAR HEMOGLOBIN 31 pg (27-31); MEAN CORPUSCULAR HGB CONC 34 % (32-36); MEAN CORPUSCULAR VOLUME 91 fL (79.0-98.0); MONOCYTES # (AUTO) 0.8 K/uL (0.0-1.0); MONOCYTES % (AUTO) 4.2 % (1.7-9.3); NEUTROPHILS # (AUTO) 16.1 K/uL (1.8-7.7); NEUTROPHILS % (AUTO) 86.5 % (40.0-70.0); RED CELL DISTRIBUTION WIDTH 14.2 % (9.0-15.0); WHITE BLOOD COUNT (AUTO) 18.6 K/uL (4.8-10.8)
[2017-08-08 11:34] LABS: CALCIUM 10.2 mg/dL (8.4-11.0); POTASSIUM 4.1 mmol/L (3.5-5.1)
[2017-08-08 11:39] LABS: PROTHROMBIN TIME 9.7 SECS (9.5-12.5)
[2017-08-08 11:52] LABS: ALBUMIN 2.5 g/dL (3.4-4.8); PLATELET COUNT (AUTO) 612 K/uL (130-430)
[2017-08-08 11:53] LABS: CREATININE 2.73 mg/dL (0.55-1.30)
[2017-08-08 12:11] LABS: TOTAL BILIRUBIN 0.1 mg/dL (0.0-1.0)
[2017-08-08] MEDS ORDERED: NACL 0.9% 1,000 ML IV ONE (12:30)
[2017-08-08] MEDS ORDERED: LEVOFLOXACIN 500 MG/D5W 100 ML IV SCH (12:45)
[2017-08-08] MEDS ORDERED: NACL 0.9% 1,500 ML IV ONE (12:45)
[2017-08-08] MEDS ORDERED: MORPHINE 2 MG/ML INJ. SYRINGE IVP PRN ×2 (13:30)
[2017-08-08] MEDS ORDERED: MAGNESIUM SULFATE 50 ML IV PRN (13:30)
[2017-08-08] MEDS ORDERED: POTASSIUM CHLORIDE 20 MEQ TAB.PRT.SR PO PRN (13:30)
[2017-08-08] MEDS ORDERED: MUPIROCIN 2% TOPICAL OINTMENT 22 GM NS PRN (13:30)
[2017-08-08] MEDS ORDERED: ONDANSETRON HCL 4 MG/2 ML VIAL IVP PRN (13:30)
[2017-08-08] MEDS ORDERED: LORazepam 2 MG/ML VIAL IVP PRN (13:30)
[2017-08-08] MEDS ORDERED: ACETAMINOPHEN 650 MG/20.3 ML UDC PO PRN (13:30)
[2017-08-08] MEDS ORDERED: DOCUSATE SODIUM 100 MG/10 ML UDC GT PRN (13:30)
[2017-08-08] MEDS: BACLOFEN 10 MG TABLET GT SCH ×2 (16:30→21:54)
[2017-08-08] MEDS: VALPROIC ACID ORAL SYRUP 250 MG/5 ML UDC GT SCH ×2 (16:30→21:54)
[2017-08-08 20:00] VITALS: BP_SYST 139
[2017-08-08] MEDS ORDERED: ZOLPIDEM TARTRATE 5 MG TABLET PO PRN (21:00)
[2017-08-08] MEDS: METOPROLOL TARTRATE 50 MG TABLET GT SCH (21:50)
[2017-08-08] MEDS: HYDROCORTISONE 10 MG TABLET (CORTEF) GT SCH (21:52)
[2017-08-08] MEDS: PARoxetine HCL 20 MG TABLET GT SCH (21:54)
[2017-08-08] MEDS: HEPARIN SODIUM,PORCINE 5000 UNITS/ML VIAL SUBCUT SCH (21:57)
[2017-08-09 00:08] VITALS: BP_SYST 150
[2017-08-09 06:42] LABS: BASOPHILS % (AUTO) 0.1 % (0.0-2.0); EOSINOPHILS % (AUTO) 0.4 % (0.0-4.0); HEMATOCRIT 28.6 % (36-54); HEMOGLOBIN 9.6 g/dL (14.0-18.0); LYMPHOCYTES % (AUTO) 17.6 % (20.5-51.5); MEAN CORPUSCULAR HEMOGLOBIN 31 pg (27-31); MEAN CORPUSCULAR HGB CONC 34 % (32-36); MEAN CORPUSCULAR VOLUME 92 fL (79.0-98.0); MONOCYTES # (AUTO) 0.8 K/uL (0.0-1.0); NEUTROPHILS # (AUTO) 8.6 K/uL (1.8-7.7); NEUTROPHILS % (AUTO) 74.9 % (40.0-70.0); PLATELET COUNT (AUTO) 518 K/uL (130-430); RED BLOOD CELL COUNT(AUTO) 3.12 MIL/uL (4.2-6.2); RED CELL DISTRIBUTION WIDTH 14.4 % (9.0-15.0); WHITE BLOOD COUNT (AUTO) 11.4 K/uL (4.8-10.8)
[2017-08-09 07:19] LABS: CALCIUM 9.5 mg/dL (8.4-11.0); CREATININE 1.24 mg/dL (0.55-1.30); POTASSIUM 3.9 mmol/L (3.5-5.1)
[2017-08-09] MEDS ORDERED: DEXTROSE 50% JECT 50 ML DISP.SYRIN IVP PRN (07:45)
[2017-08-09 08:07] VITALS: BP_SYST 167
[2017-08-09] MEDS: VALPROIC ACID ORAL SYRUP 250 MG/5 ML UDC GT SCH ×3 (08:26→21:57)
[2017-08-09] MEDS: LATANOPROST 2.5 ML DROPS (XALATAN) OP SCH (08:26)
[2017-08-09] MEDS: HYDROCORTISONE 10 MG TABLET (CORTEF) GT SCH ×2 (08:27→21:54)
[2017-08-09] MEDS: PARoxetine HCL 20 MG TABLET GT SCH ×2 (08:27→21:58)
[2017-08-09] MEDS: FLUDROCORTISONE ACETATE 0.1 MG TABLET( FLORINEF) GT SCH (08:27)
[2017-08-09] MEDS: POTASSIUM CHLORIDE 20 MEQ/PKT PACKET GT SCH (08:27)
[2017-08-09] MEDS: BACLOFEN 10 MG TABLET GT SCH ×3 (08:27→21:56)
[2017-08-09] MEDS: METOPROLOL TARTRATE 50 MG TABLET GT SCH ×2 (08:28→21:55)
[2017-08-09] MEDS: HEPARIN SODIUM,PORCINE 5000 UNITS/ML VIAL SUBCUT SCH ×2 (08:29→22:00)
[2017-08-09 12:45] VITALS: BP_SYST 156
[2017-08-09 15:29] LABS: BILIRUBIN,URINE NEGATIVE (NEGATIVE); CLARITY/URINE CLEAR (CLEAR); COLOR,URINE YELLOW (YELLOW); GLUCOSE,URINE NEGATIVE (NEGATIVE); KETONES,URINE NEGATIVE (NEGATIVE); LEUKOCYTE ESTERASE ,URINE NEGATIVE (NEGATIVE); NITRITE, URINE NEGATIVE (NEGATIVE); PROTEIN URINE 2+ (NEGATIVE); UROBILINOGEN,URINE 0.2 (0.2-1.0)
[2017-08-09 15:33] LABS: BLOOD, URINE TRACE (NEGATIVE)
[2017-08-09 15:38] LABS: BACTERIA,URINE RARE /HPF (None Seen); RBC,URINE 0-3 /HPF (0-3); WBC,URINE 0-3 /HPF (0-3)
[2017-08-09 16:40] VITALS: BP_SYST 151
[2017-08-09 20:00] VITALS: BP_SYST 160
[2017-08-09] MEDS: INSULIN ASPART 100 UNITS/ML, 10 ML VIAL (NovoLOG) SUBCUT PRN (22:04)
[2017-08-10] VITALS (7 sets, daily range): BP systolic 100–186
[2017-08-10] MEDS: cloNIDine HCL 0.1 MG TABLET GT PRN (01:00)
[2017-08-10] MEDS: INSULIN ASPART 100 UNITS/ML, 10 ML VIAL (NovoLOG) SUBCUT PRN (06:18)
[2017-08-10 06:57] LABS: ANION GAP 8 (5-15); CALCIUM 9.8 mg/dL (8.4-11.0); CHLORIDE 105 mmol/L (98-107); CREATININE 1.09 mg/dL (0.55-1.30); GLUCOSE 137 mg/dL (70-99); SODIUM SERUM 140 mmol/L (136-145); UREA NITROGEN, BLOOD 30 mg/dL (8-21)
[2017-08-10 07:05] LABS: ALANINE AMINOTRANSFERASE 29 U/L (12-78); ALBUMIN 2.2 g/dL (3.4-4.8); ASPARTATE AMINOTRANSFERASE 34 U/L (10-37)
[2017-08-10 07:26] LABS: BASOPHILS % (AUTO) 0.2 % (0.0-2.0); EOSINOPHILS # (AUTO) 0.1 K/uL (0.0-0.4); EOSINOPHILS % (AUTO) 0.8 % (0.0-4.0); HEMATOCRIT 27.9 % (36-54); HEMOGLOBIN 9.5 g/dL (14.0-18.0); LYMPHOCYTES # (AUTO) 2.9 K/uL (1.0-5.5); LYMPHOCYTES % (AUTO) 28.6 % (20.5-51.5); MEAN CORPUSCULAR HEMOGLOBIN 31 pg (27-31); MEAN CORPUSCULAR HGB CONC 34 % (32-36); MEAN CORPUSCULAR VOLUME 91 fL (79.0-98.0); MONOCYTES # (AUTO) 0.9 K/uL (0.0-1.0); MONOCYTES % (AUTO) 8.8 % (1.7-9.3); NEUTROPHILS # (AUTO) 6.2 K/uL (1.8-7.7); NEUTROPHILS % (AUTO) 61.6 % (40.0-70.0); PLATELET COUNT (AUTO) 405 K/uL (130-430); RED BLOOD CELL COUNT(AUTO) 3.06 MIL/uL (4.2-6.2); RED CELL DISTRIBUTION WIDTH 14.4 % (9.0-15.0); WHITE BLOOD COUNT (AUTO) 10.1 K/uL (4.8-10.8)
[2017-08-10 07:55] LABS: GFR AFRICAN AMERICAN 107 mL/min (>90)
[2017-08-10 08:36] LABS: TOTAL BILIRUBIN < 0.1 mg/dL (0.0-1.0)
[2017-08-10] MEDS: VALPROIC ACID ORAL SYRUP 250 MG/5 ML UDC GT SCH ×3 (10:34→22:34)
[2017-08-10] MEDS: METOPROLOL TARTRATE 50 MG TABLET GT SCH ×2 (10:35→22:17)
[2017-08-10] MEDS: HEPARIN SODIUM,PORCINE 5000 UNITS/ML VIAL SUBCUT SCH ×2 (10:35→22:15)
[2017-08-10] MEDS: BACLOFEN 10 MG TABLET GT SCH ×3 (10:36→22:17)
[2017-08-10] MEDS: HYDROCORTISONE 10 MG TABLET (CORTEF) GT SCH ×2 (10:36→22:09)
[2017-08-10] MEDS: POTASSIUM CHLORIDE 20 MEQ/PKT PACKET GT SCH (10:36)
[2017-08-10] MEDS: PARoxetine HCL 20 MG TABLET GT SCH ×2 (10:36→22:09)
[2017-08-10] MEDS: LATANOPROST 2.5 ML DROPS (XALATAN) OP SCH (10:37)
[2017-08-10] MEDS: FLUDROCORTISONE ACETATE 0.1 MG TABLET( FLORINEF) GT SCH (10:41)
[2017-08-11] VITALS (7 sets, daily range): BP systolic 139–186
[2017-08-11] MEDS: cloNIDine HCL 0.1 MG TABLET GT PRN ×3 (00:37→16:51)
[2017-08-11] MEDS: INSULIN ASPART 100 UNITS/ML, 10 ML VIAL (NovoLOG) SUBCUT PRN ×2 (03:31→06:33)
[2017-08-11 07:17] LABS: CALCIUM 9.8 mg/dL (8.4-11.0); CREATININE 0.89 mg/dL (0.55-1.30); POTASSIUM 4.2 mmol/L (3.5-5.1)
[2017-08-11 07:28] LABS: BASOPHILS % (AUTO) 0.3 % (0.0-2.0); EOSINOPHILS # (AUTO) 0.1 K/uL (0.0-0.4); EOSINOPHILS % (AUTO) 0.7 % (0.0-4.0); HEMATOCRIT 27.4 % (36-54); HEMOGLOBIN 9.3 g/dL (14.0-18.0); LYMPHOCYTES # (AUTO) 3.3 K/uL (1.0-5.5); LYMPHOCYTES % (AUTO) 31.6 % (20.5-51.5); MEAN CORPUSCULAR HEMOGLOBIN 31 pg (27-31); MEAN CORPUSCULAR HGB CONC 34 % (32-36); MEAN CORPUSCULAR VOLUME 92 fL (79.0-98.0); MONOCYTES # (AUTO) 0.9 K/uL (0.0-1.0); MONOCYTES % (AUTO) 8.5 % (1.7-9.3); NEUTROPHILS # (AUTO) 6.2 K/uL (1.8-7.7); NEUTROPHILS % (AUTO) 58.9 % (40.0-70.0); PLATELET COUNT (AUTO) 395 K/uL (130-430); RED BLOOD CELL COUNT(AUTO) 2.97 MIL/uL (4.2-6.2); WHITE BLOOD COUNT (AUTO) 10.4 K/uL (4.8-10.8)
[2017-08-11] MEDS: VALPROIC ACID ORAL SYRUP 250 MG/5 ML UDC GT SCH ×2 (08:56→15:26)
[2017-08-11] MEDS: FLUDROCORTISONE ACETATE 0.1 MG TABLET( FLORINEF) GT SCH (08:56)
[2017-08-11] MEDS: BACLOFEN 10 MG TABLET GT SCH ×2 (08:56→15:26)
[2017-08-11] MEDS: HYDROCORTISONE 10 MG TABLET (CORTEF) GT SCH (08:56)
[2017-08-11] MEDS: POTASSIUM CHLORIDE 20 MEQ/PKT PACKET GT SCH (08:57)
[2017-08-11] MEDS: PARoxetine HCL 20 MG TABLET GT SCH (08:57)
[2017-08-11] MEDS: METOPROLOL TARTRATE 50 MG TABLET GT SCH (08:57)
[2017-08-11] MEDS: LATANOPROST 2.5 ML DROPS (XALATAN) OP SCH (09:00)
[2017-08-11] MEDS: HEPARIN SODIUM,PORCINE 5000 UNITS/ML VIAL SUBCUT SCH (09:00)
[2017-08-11] MEDS ORDERED: cloNIDine HCL 0.3 MG/24 HR PATCH.TDWK TD SCH (09:00)
[2017-08-11] MEDS ORDERED: hydrALAZINE HCL 20 MG/ML VIAL IVP PRN (10:30)
[2017-08-11] MEDS ORDERED: MORPHINE 4 MG/ML INJ. SYRINGE IVP PRN ×2 (17:04)
== END 2017-08-11 18:25 | disposition home or self-care (01) | DRG 871 ==
LOC: SED 09:51 → SMU 12:20
PROVIDERS: ADMIT General Practice; ATTEND General Practice
DX: A41.9 Sepsis, unspecified organism (principal); N17.0 Acute kidney failure with tubular necrosis; E44.0 Moderate protein-calorie malnutrition; E71.529 X-linked adrenoleukodystrophy, unspecified type; R13.10 Dysphagia, unspecified; Z93.1 Gastrostomy status; Z68.1 Body mass index [BMI] 19.9 or less, adult; E11.9 Type 2 diabetes mellitus without complications; F79 Unspecified intellectual disabilities; I10 Essential (primary) hypertension; K52.9 Noninfective gastroenteritis and colitis, unspecified; R65.10 Systemic inflammatory response syndrome (SIRS) of non-infectious origin without acute organ dysfunction; G47.00 Insomnia, unspecified; E86.0 Dehydration; Z79.899 Other long term (current) drug therapy
CPT/HCPCS: 36415; 71045; 76770; 80048; 80053; 81000-TC; 82962; 83605; 83735-TC; 84484; 85025; 85610-TC; 85730-TC; 87040-TC; 87081; 87230-TC; 96365; 99291; J0360; J1644; J1815; J1956; J7030; J7040; J7120; Q0162

== ENCOUNTER 2018-04-30 13:37 | Inpatient (IN) | payer BC, MEDICAID ==
[~2018-04-30] VITALS: Ht 132.1 cm; Wt 44.5 kg
[~2018-04-30 13:37] MED LIST changes: +ALPR0.25 PO; -ALPR0.2583 PO; -CITR15SO PO; -MAGN400T10 GT; -NYSCR30 TP; -ZOLP5TAB2 PO
[2018-04-30 13:44] VITALS: BP_SYST 124
[2018-04-30] MEDS ORDERED: LEVOFLOXACIN 500 MG/D5W 100 ML IV ONE (14:00)
[2018-04-30] MEDS ORDERED: ALBUTEROL SULFATE 0.083% 2.5 MG/3 ML VIAL.NEB INH ONE (14:00)
[2018-04-30 14:37] LABS: HEMATOCRIT 33.1 % (36-54); HEMOGLOBIN 10.9 g/dL (14.0-18.0); MEAN CORPUSCULAR HEMOGLOBIN 33 pg (27-31); MEAN CORPUSCULAR HGB CONC 33 % (32-36); MEAN CORPUSCULAR VOLUME 99 fL (79.0-98.0); PLATELET COUNT (AUTO) 337 K/uL (130-430); RED BLOOD CELL COUNT(AUTO) 3.34 MIL/uL (4.2-6.2); RED CELL DISTRIBUTION WIDTH 12.6 % (9.0-15.0); WHITE BLOOD COUNT (AUTO) 8.4 K/uL (4.8-10.8)
[2018-04-30 14:55] LABS: INR 0.9 (0.80-1.20); PROTHROMBIN TIME 9.7 SECS (9.5-12.5)
[2018-04-30 14:59] LABS: ATYPICAL LYMPHOCYTES % 0 % (0-0); BAND % (MANUAL) 5 % (0-6); LYMPHOCYTES % (MANUAL) 15 % (20-46)
[2018-04-30 15:00] LABS: BASOPHILS % (MANUAL) 0 % (0-2); EOSINOPHILS % (MANUAL) 1 % (0-7); MONOCYTES % (MANUAL) 9 % (0-11)
[2018-04-30 15:01] LABS: CALCIUM 9.7 mg/dL (8.4-11.0); CREATININE 3.38 mg/dL (0.55-1.30)
[2018-04-30 15:10] LABS: POTASSIUM 6.9 mmol/L (3.5-5.1)
[2018-04-30 15:13] LABS: ALBUMIN 2.8 g/dL (3.4-4.8); TOTAL BILIRUBIN 0.6 mg/dL (0.0-1.0)
[2018-04-30 15:26] LABS: BILIRUBIN,URINE NEGATIVE (NEGATIVE); BLOOD, URINE NEGATIVE (NEGATIVE); CLARITY/URINE CLEAR (CLEAR); COLOR,URINE YELLOW (YELLOW); GLUCOSE,URINE NEGATIVE (NEGATIVE); KETONES,URINE TRACE (NEGATIVE); LEUKOCYTE ESTERASE ,URINE NEGATIVE (NEGATIVE); NITRITE, URINE NEGATIVE (NEGATIVE); PROTEIN URINE 2+ (NEGATIVE); UROBILINOGEN,URINE 0.2 (0.2-1.0)
[2018-04-30] MEDS ORDERED: INSULIN REGULAR, HUMAN 10 UNITS/0.1 ML INJ IVP ONE (15:30)
[2018-04-30] MEDS ORDERED: DEXTROSE 50% JECT 50 ML DISP.SYRIN IVP ONE (15:30)
[2018-04-30] MEDS ORDERED: NACL 0.9% 1,000 ML IV ONE (15:30)
[2018-04-30] MEDS ORDERED: SODIUM POLYSTYRENE SULFONATE 15 GM/60 ML UDBTL PO ONE (15:30)
[2018-04-30] MEDS ORDERED: CALCIUM CHLORIDE 1 GM/10ML VIAL (13.6 mEq Ca++/VIAL) IVP ONE (15:30)
[2018-04-30] MEDS ORDERED: SODIUM BICARBONATE 8.4% JECT 50 MEQ/50 ML SYRINGE IVP ONE (15:30)
[2018-04-30 15:38] LABS: BACTERIA,URINE FEW /HPF (None Seen); MUCUS,URINE None Seen /LPF (None Seen); RBC,URINE 0-3 /HPF (0-3); WBC,URINE 0-3 /HPF (0-3)
[2018-04-30] MEDS ORDERED: PIPERACILLIN/TAZO 3.375 GM in NS 50 ML IV ONE (16:00)
[2018-04-30] MEDS ORDERED: CALCIUM CHLORIDE 1 GM/10 ML DISP.SYRIN (14 mEq Ca++/SYR) ONE (16:12)
[2018-04-30 17:04] VITALS: BP_SYST 163
[2018-04-30] MEDS ORDERED: SODIUM POLYSTYRENE SULFONATE 15 GM/60 ML UDBTL GT PRN (18:00)
[2018-04-30] MEDS ORDERED: ACETAMINOPHEN 650 MG/20.3 ML UDC GT PRN (18:00)
[2018-04-30] MEDS ORDERED: LATANOPROST 2.5 ML DROPS (XALATAN) OP SCH (18:00)
[2018-04-30] MEDS ORDERED: HYDROCORTISONE SOD SUCC 100 MG/2 ML VIAL IVP ONE (18:30)
[2018-04-30] MEDS ORDERED: PIPERACILLIN/TAZO 3.375/DEX-IS 50 ML IV ONE (18:30)
[2018-04-30] MEDS: NACL 0.9% 1,000 ML IV SCH (18:37)
[2018-04-30] MEDS: IPRATROPIUM/ALBUTEROL SULFATE 3 ML AMPUL.NEB (DUONEB) INH SCH (19:54)
[2018-04-30 19:59] VITALS: BP_SYST 142
[2018-04-30 20:40] VITALS: BP_SYST 138
[2018-04-30] MEDS: VALPROIC ACID ORAL SYRUP 250 MG/5 ML UDC GT SCH (20:44)
[2018-04-30] MEDS: PARoxetine HCL 20 MG TABLET GT SCH (20:45)
[2018-04-30] MEDS: LATANOPROST 2.5 ML DROPS (XALATAN) OP SCH (20:45)
[2018-04-30] MEDS: PIPERACILLIN/TAZO 2.25G/DEX-IS 50 ML IV SCH (22:34)
[2018-04-30 23:04] LABS: CALCIUM 10.5 mg/dL (8.4-11.0); CREATININE 2.66 mg/dL (0.55-1.30); POTASSIUM 4.5 mmol/L (3.5-5.1)
[2018-04-30] MEDS: INSULIN ASPART 100 UNITS/ML, 10 ML VIAL (NovoLOG) SUBCUT PRN (23:25)
[2018-04-30 23:46] VITALS: BP_SYST 153
[2018-05-01] MEDS: IPRATROPIUM/ALBUTEROL SULFATE 3 ML AMPUL.NEB (DUONEB) INH SCH ×4 (01:32→20:23)
[2018-05-01 01:45] VITALS: BP_SYST 165
[2018-05-01] MEDS ORDERED: METOPROLOL TARTRATE 25 MG TABLET PO ONE (02:00)
[2018-05-01 04:00] VITALS: BP_SYST 155
[2018-05-01] MEDS: NACL 0.9% 1,000 ML IV SCH (04:36)
[2018-05-01] MEDS: HYDROCORTISONE SOD SUCC 100 MG/2 ML VIAL IVP SCH ×2 (06:11→18:24)
[2018-05-01] MEDS: PIPERACILLIN/TAZO 2.25G/DEX-IS 50 ML IV SCH ×3 (06:11→21:46)
[2018-05-01] MEDS: INSULIN ASPART 100 UNITS/ML, 10 ML VIAL (NovoLOG) SUBCUT PRN ×2 (06:24→23:31)
[2018-05-01 06:58] LABS: CALCIUM 9.9 mg/dL (8.4-11.0); CREATININE 2.09 mg/dL (0.55-1.30); POTASSIUM 3.7 mmol/L (3.5-5.1)
[2018-05-01 07:04] LABS: ALBUMIN 2.7 g/dL (3.4-4.8); PHOSPHORUS 5.5 mg/dL (2.7-4.5); TOTAL BILIRUBIN 0.4 mg/dL (0.0-1.0)
[2018-05-01 08:00] VITALS: BP_SYST 167
[2018-05-01 08:17] LABS: HEMATOCRIT 35.2 % (36-54); HEMOGLOBIN 11.7 g/dL (14.0-18.0); MEAN CORPUSCULAR HEMOGLOBIN 33 pg (27-31); MEAN CORPUSCULAR HGB CONC 33 % (32-36); MEAN CORPUSCULAR VOLUME 99 fL (79.0-98.0); PLATELET COUNT (AUTO) 335 K/uL (130-430); RED BLOOD CELL COUNT(AUTO) 3.58 MIL/uL (4.2-6.2); RED CELL DISTRIBUTION WIDTH 12.3 % (9.0-15.0); WHITE BLOOD COUNT (AUTO) 5.1 K/uL (4.8-10.8)
[2018-05-01] MEDS ORDERED: METOPROLOL TARTRATE 25 MG TABLET PO SCH (09:00)
[2018-05-01] MEDS: 0.45% NACL 1,000 ML IV SCH ×2 (10:04→19:45)
[2018-05-01 11:39] LABS: ATYPICAL LYMPHOCYTES % 1 % (0-0); BAND % (MANUAL) 4 % (0-6); BASOPHILS % (MANUAL) 0 % (0-2); EOSINOPHILS % (MANUAL) 0 % (0-7); LYMPHOCYTES % (MANUAL) 18 % (20-46); MONOCYTES % (MANUAL) 11 % (0-11)
[2018-05-01 12:00] VITALS: BP_SYST 131
[2018-05-01] MEDS: VALPROIC ACID ORAL SYRUP 250 MG/5 ML UDC GT SCH ×3 (12:47→20:02)
[2018-05-01] MEDS: FAMOTIDINE 20 MG TABLET GT SCH (12:47)
[2018-05-01] MEDS: PARoxetine HCL 20 MG TABLET GT SCH ×2 (12:48→20:03)
[2018-05-01] MEDS: FLUDROCORTISONE ACETATE 0.1 MG TABLET( FLORINEF) GT SCH (12:50)
[2018-05-01 16:45] VITALS: BP_SYST 158
[2018-05-01 19:51] VITALS: BP_SYST 167
[2018-05-01] MEDS: LATANOPROST 2.5 ML DROPS (XALATAN) OP SCH (20:05)
[2018-05-01] MEDS: METOPROLOL TARTRATE 50 MG TABLET PO SCH (20:06)
[2018-05-02 02:14] VITALS: BP_SYST 125
[2018-05-02] MEDS: HYDROCORTISONE SOD SUCC 100 MG/2 ML VIAL IVP SCH ×2 (05:11→18:28)
[2018-05-02] MEDS: PIPERACILLIN/TAZO 2.25G/DEX-IS 50 ML IV SCH ×3 (05:11→20:51)
[2018-05-02] MEDS: INSULIN ASPART 100 UNITS/ML, 10 ML VIAL (NovoLOG) SUBCUT PRN ×3 (05:32→17:48)
[2018-05-02] MEDS: IPRATROPIUM/ALBUTEROL SULFATE 3 ML AMPUL.NEB (DUONEB) INH SCH ×4 (06:23→20:05)
[2018-05-02 07:58] LABS: ALBUMIN 2.1 g/dL (3.4-4.8); CALCIUM 8.7 mg/dL (8.4-11.0); CREATININE 1.33 mg/dL (0.55-1.30); THYROID STIMULATING HORMONE 3.59 uIu/mL (0.34-4.82); TOTAL BILIRUBIN 0.2 mg/dL (0.0-1.0)
[2018-05-02 08:00] VITALS: BP_SYST 145
[2018-05-02 08:16] LABS: POTASSIUM 2.5 mmol/L (3.5-5.1)
[2018-05-02] MEDS: PARoxetine HCL 20 MG TABLET GT SCH ×2 (09:40→20:38)
[2018-05-02] MEDS: VALPROIC ACID ORAL SYRUP 250 MG/5 ML UDC GT SCH ×3 (09:41→20:37)
[2018-05-02] MEDS: FAMOTIDINE 20 MG TABLET GT SCH (09:41)
[2018-05-02] MEDS: METOPROLOL TARTRATE 50 MG TABLET PO SCH ×2 (09:41→20:40)
[2018-05-02] MEDS: FLUDROCORTISONE ACETATE 0.1 MG TABLET( FLORINEF) GT SCH (09:45)
[2018-05-02] MEDS ORDERED: POTASSIUM CHLORIDE 40 MEQ, LIDOCAINE JECT 2% PF 100 MG 50 MG in NS 250 ML IV ONE (10:00)
[2018-05-02] MEDS: POTASSIUM CHLORIDE 10 MEQ in 0.45% NACL 1,000 ML IV SCH (10:35)
[2018-05-02 12:22] VITALS: BP_SYST 153
[2018-05-02 16:13] VITALS: BP_SYST 158
[2018-05-02 18:37] LABS: CALCIUM 8.5 mg/dL (8.4-11.0); CREATININE 1.18 mg/dL (0.55-1.30)
[2018-05-02 18:40] LABS: POTASSIUM 2.7 mmol/L (3.5-5.1)
[2018-05-02 19:00] VITALS: BP_SYST 197
[2018-05-02] MEDS ORDERED: POTASSIUM CHLORIDE 20 MEQ/PKT PACKET GT ONE (19:45)
[2018-05-02 20:00] VITALS: BP_SYST 197
[2018-05-02] MEDS: LATANOPROST 2.5 ML DROPS (XALATAN) OP SCH (20:39)
[2018-05-03] VITALS (8 sets, daily range): BP systolic 150–186
[2018-05-03] MEDS: POTASSIUM CHLORIDE 10 MEQ in 0.45% NACL 1,000 ML IV SCH (01:01)
[2018-05-03] MEDS: INSULIN ASPART 100 UNITS/ML, 10 ML VIAL (NovoLOG) SUBCUT PRN ×2 (01:15→12:20)
[2018-05-03] MEDS ORDERED: DILTIAZEM HCL 25 MG/5 ML VIAL IVP ONE (01:15)
[2018-05-03] MEDS ORDERED: POTASSIUM CHLORIDE 20 MEQ/PKT PACKET PO ONE (01:30)
[2018-05-03] MEDS: PIPERACILLIN/TAZO 2.25G/DEX-IS 50 ML IV SCH ×2 (05:18→13:02)
[2018-05-03] MEDS: HYDROCORTISONE SOD SUCC 100 MG/2 ML VIAL IVP SCH ×2 (05:19→17:43)
[2018-05-03 06:43] LABS: BASOPHILS % (AUTO) 0.5 % (0.0-2.0); EOSINOPHILS % (AUTO) 0.1 % (0.0-4.0); HEMATOCRIT 31.8 % (36-54); HEMOGLOBIN 10.8 g/dL (14.0-18.0); LYMPHOCYTES # (AUTO) 3.5 K/uL (1.0-5.5); LYMPHOCYTES % (AUTO) 37.7 % (20.5-51.5); MEAN CORPUSCULAR HEMOGLOBIN 33 pg (27-31); MEAN CORPUSCULAR HGB CONC 34 % (32-36); MEAN CORPUSCULAR VOLUME 98 fL (79.0-98.0); MONOCYTES # (AUTO) 1.6 K/uL (0.0-1.0); MONOCYTES % (AUTO) 16.9 % (1.7-9.3); NEUTROPHILS # (AUTO) 4.2 K/uL (1.8-7.7); NEUTROPHILS % (AUTO) 44.8 % (40.0-70.0); PLATELET COUNT (AUTO) 376 K/uL (130-430); RED BLOOD CELL COUNT(AUTO) 3.26 MIL/uL (4.2-6.2); RED CELL DISTRIBUTION WIDTH 12.2 % (9.0-15.0); WHITE BLOOD COUNT (AUTO) 9.3 K/uL (4.8-10.8)
[2018-05-03 07:35] LABS: CALCIUM 9.5 mg/dL (8.4-11.0); CREATININE 1.06 mg/dL (0.55-1.30); POTASSIUM 4.5 mmol/L (3.5-5.1)
[2018-05-03] MEDS: IPRATROPIUM/ALBUTEROL SULFATE 3 ML AMPUL.NEB (DUONEB) INH SCH ×3 (07:36→19:50)
[2018-05-03 07:46] LABS: ALBUMIN 2.6 g/dL (3.4-4.8); TOTAL BILIRUBIN 0.2 mg/dL (0.0-1.0)
[2018-05-03] MEDS: PARoxetine HCL 20 MG TABLET GT SCH ×2 (09:48→21:31)
[2018-05-03] MEDS: FAMOTIDINE 20 MG TABLET GT SCH (09:49)
[2018-05-03] MEDS: FLUDROCORTISONE ACETATE 0.1 MG TABLET( FLORINEF) GT SCH (09:49)
[2018-05-03] MEDS: METOPROLOL TARTRATE 50 MG TABLET PO SCH ×2 (09:49→21:31)
[2018-05-03] MEDS: VALPROIC ACID ORAL SYRUP 250 MG/5 ML UDC GT SCH ×3 (09:50→21:32)
[2018-05-03] MEDS ORDERED: BENAZEPRIL HCL 10 MG TABLET (LOTENSIN) PO ONE (12:30)
[2018-05-03] MEDS ORDERED: BENAZEPRIL HCL 10 MG TABLET (LOTENSIN) GT ONE (16:30)
[2018-05-03] MEDS ORDERED: cloNIDine HCL 0.1 MG TABLET GT ONE (18:30)
[2018-05-03] MEDS ORDERED: BENAZEPRIL HCL 10 MG TABLET (LOTENSIN) PO SCH (21:00)
[2018-05-03] MEDS: LATANOPROST 2.5 ML DROPS (XALATAN) OP SCH (21:32)
== END 2018-05-03 22:15 | disposition home health service (06) | DRG 871 ==
LOC: SED 13:37 → STU 15:55
PROVIDERS: ADMIT Internal Medicine; ATTEND Internal Medicine
DX: A41.9 Sepsis, unspecified organism (principal); N17.0 Acute kidney failure with tubular necrosis; J69.0 Pneumonitis due to inhalation of food and vomit; E71.529 X-linked adrenoleukodystrophy, unspecified type; N17.9 Acute kidney failure, unspecified; E44.0 Moderate protein-calorie malnutrition; E27.40 Unspecified adrenocortical insufficiency; E11.9 Type 2 diabetes mellitus without complications; I10 Essential (primary) hypertension; E87.5 Hyperkalemia; G47.00 Insomnia, unspecified; F41.9 Anxiety disorder, unspecified; F39 Unspecified mood [affective] disorder; G40.909 Epilepsy, unspecified, not intractable, without status epilepticus; E86.0 Dehydration; R13.10 Dysphagia, unspecified; R09.02 Hypoxemia; F19.10 Other psychoactive substance abuse, uncomplicated; F79 Unspecified intellectual disabilities; Z74.01 Bed confinement status; Z68.25 Body mass index [BMI] 25.0-25.9, adult; Z79.899 Other long term (current) drug therapy; Z93.1 Gastrostomy status; Z89.021 Acquired absence of right finger(s); Z83.3 Family history of diabetes mellitus
CPT/HCPCS: 36415; 36600; 70450-TC; 71045; 74018; 76700-TC; 76770; 80048; 80053; 80164-TC; 81000-TC; 82803-TC; 82962; 83605; 83690-TC; 83735-TC; 83880; 84100-TC; 84443-TC; 84484; 85007; 85025; 85027; 85379; 85610-TC; 86710; 87040-TC; 87045-TC; 87046; 87086; 87177; 87230-TC; 89055; 90656; 92610-GN; 93005; 94640; 94668; 94760; 96365; 96366; 96375; 99285; G0378; J1720; J1815; J1956; J2543; J3480; J3490; J7030; J7050; J7613; J7620

== ENCOUNTER 2018-06-10 07:04 | Inpatient (IN) | payer BC, MEDICAID ==
[~2018-06-10] VITALS: Ht 132.1 cm; Wt 44.5 kg
[2018-06-10] VITALS (15 sets, daily range): BP systolic 82–171
[~2018-06-10 07:04] MED LIST changes: -AMLO5TAB4 GT; -FAMO20TA8 GT; -GLUXR500 GT
[2018-06-10] MEDS ORDERED: NACL 0.9% 1,000 ML IV ONE (07:45)
[2018-06-10 08:27] LABS: HEMOGLOBIN 12.1 g/dL (14.0-18.0); MEAN CORPUSCULAR HEMOGLOBIN 33 pg (27-31); MEAN CORPUSCULAR HGB CONC 34 % (32-36); MEAN CORPUSCULAR VOLUME 99 fL (79.0-98.0); PLATELET COUNT (AUTO) 622 K/uL (130-430); RED BLOOD CELL COUNT(AUTO) 3.65 MIL/uL (4.2-6.2); RED CELL DISTRIBUTION WIDTH 13.9 % (9.0-15.0); WHITE BLOOD COUNT (AUTO) 29.5 K/uL (4.8-10.8)
[2018-06-10] MEDS ORDERED: NS 500 ML IV ONE (08:30)
[2018-06-10 08:38] LABS: CALCIUM 10.9 mg/dL (8.4-11.0); CREATININE 2.1 mg/dL (0.55-1.30); POTASSIUM 4.8 mmol/L (3.5-5.1)
[2018-06-10 08:40] LABS: INR 1.1 (0.80-1.20)
[2018-06-10 08:42] LABS: ALBUMIN 2.3 g/dL (3.4-4.8); TOTAL BILIRUBIN 0.3 mg/dL (0.0-1.0)
[2018-06-10] MEDS ORDERED: VANCOMYCIN HCL 1,000 MG in NS 250 ML IV ONE (08:45)
[2018-06-10] MEDS: cloNIDine HCL 0.3 MG/24 HR PATCH.TDWK TD SCH (09:00)
[2018-06-10] MEDS ORDERED: VANCOMYCIN HCL 1000 MG/VIAL IV ONE (09:10)
[2018-06-10 09:13] LABS: BAND % (MANUAL) 12 % (0-6); BASOPHILS % (MANUAL) 0 % (0-2); EOSINOPHILS % (MANUAL) 0 % (0-7); LYMPHOCYTES % (MANUAL) 24 % (20-46); MONOCYTES % (MANUAL) 17 % (0-11)
[2018-06-10] MEDS ORDERED: cefTRIAXone 1 GM in D5W 50 ML IV ONE (09:30)
[2018-06-10] MEDS ORDERED: cefTRIAXone 1 GM VIAL ONE (10:02)
[2018-06-10] MEDS ORDERED: D5/0.45 NS 1,000 ML IV SCH (11:02)
[2018-06-10] MEDS ORDERED: ONDANSETRON HCL 4 MG/2 ML VIAL IVP PRN (11:45)
[2018-06-10 12:09] LABS: BILIRUBIN,URINE NEGATIVE (NEGATIVE); BLOOD, URINE NEGATIVE (NEGATIVE); CLARITY/URINE CLEAR (CLEAR); COLOR,URINE YELLOW (YELLOW); GLUCOSE,URINE NEGATIVE (NEGATIVE); KETONES,URINE NEGATIVE (NEGATIVE); LEUKOCYTE ESTERASE ,URINE NEGATIVE (NEGATIVE); NITRITE, URINE NEGATIVE (NEGATIVE); PROTEIN URINE 2+ (NEGATIVE); UROBILINOGEN,URINE 0.2 (0.2-1.0)
[2018-06-10] MEDS ORDERED: NOREPINEPHRINE BITARTRATE 4 MG in NS 246 ML IV PRN (12:15)
[2018-06-10] MEDS: D5/0.45 NS 1,000 ML IV SCH ×2 (12:21→23:36)
[2018-06-10] MEDS ORDERED: NOREPINEPHRINE 4 MG/4 ML VIAL IV ONE (12:24)
[2018-06-10 12:29] LABS: BACTERIA,URINE None Seen /HPF (None Seen); WBC,URINE 0-3 /HPF (0-3)
[2018-06-10] MEDS: PIPERACILLIN/TAZO 2.25G/DEX-IS 50 ML IV SCH ×2 (13:40→20:07)
[2018-06-10] MEDS: VALPROIC ACID 250 MG CAPSULE (DEPAKENE) GT SCH ×2 (14:36→21:19)
[2018-06-10] MEDS: BACLOFEN 10 MG TABLET PO SCH ×2 (14:36→21:19)
[2018-06-10] MEDS ORDERED: HYDROCORTISONE SOD SUCC 100 MG/2 ML VIAL IVP ONE (17:15)
[2018-06-10] MEDS: LEVOFLOXACIN 500 MG/D5W 100 ML IV SCH (18:10)
[2018-06-10] MEDS ORDERED: NS 250 ML IV ONE (18:15)
[2018-06-10] MEDS ORDERED: SODIUM CITRATE GT SCH (21:00)
[2018-06-10] MEDS: BENAZEPRIL HCL 10 MG TABLET (LOTENSIN) GT SCH (21:18)
[2018-06-10] MEDS: PARoxetine HCL 20 MG TABLET GT SCH (21:19)
[2018-06-10] MEDS: METOPROLOL TARTRATE 50 MG TABLET GT SCH (21:19)
[2018-06-10] MEDS: HYDROCORTISONE 10 MG TABLET (CORTEF) GT SCH (21:20)
[2018-06-10] MEDS: HYDROCORTISONE SOD SUCC 100 MG/2 ML VIAL IVP SCH (21:23)
[2018-06-11] VITALS (19 sets, daily range): BP systolic 103–180
[2018-06-11] MEDS: PIPERACILLIN/TAZO 2.25G/DEX-IS 50 ML IV SCH (01:37)
[2018-06-11] MEDS: HYDROCORTISONE SOD SUCC 100 MG/2 ML VIAL IVP SCH ×3 (05:07→21:08)
[2018-06-11] MEDS: PANTOPRAZOLE GRANULES PACKET 40 MG GT SCH (05:07)
[2018-06-11] MEDS: ALPRAZolam 0.25 MG TABLET PO PRN ×3 (05:37→21:08)
[2018-06-11] MEDS: cloNIDine HCL 0.3 MG/24 HR PATCH.TDWK TD SCH (05:37)
[2018-06-11 06:42] LABS: BASOPHILS % (AUTO) 0.1 % (0.0-2.0); EOSINOPHILS % (AUTO) 0.1 % (0.0-4.0); HEMATOCRIT 33.5 % (36-54); HEMOGLOBIN 11.2 g/dL (14.0-18.0); LYMPHOCYTES # (AUTO) 1.2 K/uL (1.0-5.5); LYMPHOCYTES % (AUTO) 8.6 % (20.5-51.5); MEAN CORPUSCULAR HEMOGLOBIN 33 pg (27-31); MEAN CORPUSCULAR HGB CONC 34 % (32-36); MEAN CORPUSCULAR VOLUME 99 fL (79.0-98.0); MONOCYTES # (AUTO) 0.5 K/uL (0.0-1.0); MONOCYTES % (AUTO) 3.3 % (1.7-9.3); NEUTROPHILS # (AUTO) 12.3 K/uL (1.8-7.7); PLATELET COUNT (AUTO) 482 K/uL (130-430); RED BLOOD CELL COUNT(AUTO) 3.38 MIL/uL (4.2-6.2); RED CELL DISTRIBUTION WIDTH 13.4 % (9.0-15.0)
[2018-06-11 06:48] LABS: NEUTROPHILS % (AUTO) 87.9 % (40.0-70.0)
[2018-06-11 06:57] LABS: CALCIUM 9.9 mg/dL (8.4-11.0); POTASSIUM 3.7 mmol/L (3.5-5.1)
[2018-06-11 06:58] LABS: ALBUMIN 1.9 g/dL (3.4-4.8); CREATININE 1.26 mg/dL (0.55-1.30); PHOSPHORUS 4.4 mg/dL (2.7-4.5); TOTAL BILIRUBIN 0.2 mg/dL (0.0-1.0)
[2018-06-11 07:14] LABS: C-REACTIVE PROTEIN QUANT 54.1 mg/dL (0-0.5)
[2018-06-11 07:24] LABS: BILIRUBIN,URINE NEGATIVE (NEGATIVE); CLARITY/URINE CLEAR (CLEAR); COLOR,URINE YELLOW (YELLOW); GLUCOSE,URINE 1+ (NEGATIVE); KETONES,URINE NEGATIVE (NEGATIVE); LEUKOCYTE ESTERASE ,URINE NEGATIVE (NEGATIVE); NITRITE, URINE NEGATIVE (NEGATIVE); PH,URINE 7.5 (5.0-8.0); PROTEIN URINE 1+ (NEGATIVE); UROBILINOGEN,URINE 0.2 (0.2-1.0)
[2018-06-11 07:30] LABS: BLOOD, URINE TRACE (NEGATIVE)
[2018-06-11 07:34] LABS: ERYTHROCYTE SEDIMENTATION RATE 111 MM/HR (0-15)
[2018-06-11] MEDS: D5/0.45 NS 1,000 ML IV SCH ×2 (07:45→21:14)
[2018-06-11 08:00] LABS: BACTERIA,URINE FEW /HPF (None Seen); MUCUS,URINE None Seen /LPF (None Seen); RBC,URINE 0-3 /HPF (0-3); WBC,URINE 0-3 /HPF (0-3); YEAST,URINE None Seen /HPF (None Seen)
[2018-06-11] MEDS: BENAZEPRIL HCL 10 MG TABLET (LOTENSIN) GT SCH ×2 (08:30→20:24)
[2018-06-11] MEDS: BACLOFEN 10 MG TABLET PO SCH ×3 (08:30→20:25)
[2018-06-11] MEDS: PARoxetine HCL 20 MG TABLET GT SCH ×2 (08:30→20:25)
[2018-06-11] MEDS: POTASSIUM CHLORIDE 20 MEQ/PKT PACKET GT SCH (08:31)
[2018-06-11] MEDS: VALPROIC ACID 250 MG CAPSULE (DEPAKENE) GT SCH ×3 (08:31→20:21)
[2018-06-11] MEDS: METOPROLOL TARTRATE 50 MG TABLET GT SCH ×2 (08:31→20:20)
[2018-06-11] MEDS: HYDROCORTISONE 10 MG TABLET (CORTEF) GT SCH (08:32)
[2018-06-11] MEDS: PIPERACILLIN/TAZOBACTAM 3.375 GM/ D5W 50 ML IV SCH ×6 (08:32→23:01)
[2018-06-11] MEDS: LATANOPROST 2.5 ML DROPS (XALATAN) OP SCH (08:33)
[2018-06-11 10:29] LABS: URINE SODIUM, RANDOM 114 mmol/L (40-220)
[2018-06-11] MEDS ORDERED: NIFEDIPINE 30 MG TAB.ER.24 PO ONE (11:00)
[2018-06-11] MEDS ORDERED: BENAZEPRIL HCL 10 MG TABLET (LOTENSIN) PO ONE (11:00)
[2018-06-11] MEDS: FLUDROCORTISONE ACETATE 0.1 MG TABLET( FLORINEF) GT SCH (11:06)
[2018-06-11] MEDS: LEVOFLOXACIN 500 MG/D5W 100 ML IV SCH (19:01)
[2018-06-11] MEDS: HYDROcodone/ACETAMIN 5-325 MG TAB (NORCO/ VICODIN) GT PRN (23:02)
[2018-06-12 04:19] VITALS: BP_SYST 145
[2018-06-12] MEDS: PANTOPRAZOLE GRANULES PACKET 40 MG GT SCH (05:16)
[2018-06-12] MEDS: HYDROCORTISONE SOD SUCC 100 MG/2 ML VIAL IVP SCH ×3 (05:17→21:01)
[2018-06-12] MEDS: cloNIDine HCL 0.1 MG TABLET GT PRN ×3 (05:18→19:06)
[2018-06-12 07:05] LABS: BASOPHILS % (AUTO) 0.2 % (0.0-2.0); EOSINOPHILS % (AUTO) 0.1 % (0.0-4.0); HEMATOCRIT 29.4 % (36-54); HEMOGLOBIN 9.8 g/dL (14.0-18.0); LYMPHOCYTES # (AUTO) 1.7 K/uL (1.0-5.5); LYMPHOCYTES % (AUTO) 12.2 % (20.5-51.5); MEAN CORPUSCULAR HEMOGLOBIN 32 pg (27-31); MEAN CORPUSCULAR HGB CONC 33 % (32-36); MEAN CORPUSCULAR VOLUME 97 fL (79.0-98.0); MONOCYTES # (AUTO) 0.7 K/uL (0.0-1.0); MONOCYTES % (AUTO) 4.8 % (1.7-9.3); NEUTROPHILS # (AUTO) 11.4 K/uL (1.8-7.7); RED BLOOD CELL COUNT(AUTO) 3.03 MIL/uL (4.2-6.2); WHITE BLOOD COUNT (AUTO) 13.8 K/uL (4.8-10.8)
[2018-06-12 07:22] LABS: ALBUMIN 1.9 g/dL (3.4-4.8); CALCIUM 9.1 mg/dL (8.4-11.0); CREATININE 1.15 mg/dL (0.55-1.30); POTASSIUM 3.1 mmol/L (3.5-5.1); TOTAL BILIRUBIN 0.2 mg/dL (0.0-1.0)
[2018-06-12 07:38] LABS: C-REACTIVE PROTEIN QUANT 20.3 mg/dL (0-0.5)
[2018-06-12 07:51] LABS: PLATELET COUNT (AUTO) 494 K/uL (130-430)
[2018-06-12 08:00] VITALS: BP_SYST 158
[2018-06-12] MEDS: PIPERACILLIN/TAZOBACTAM 3.375 GM/ D5W 50 ML IV SCH ×6 (08:30→23:11)
[2018-06-12 10:06] LABS: NEUTROPHILS % (AUTO) 82.7 % (40.0-70.0)
[2018-06-12 10:59] LABS: ERYTHROCYTE SEDIMENTATION RATE 116 MM/HR (0-15)
[2018-06-12] MEDS: POTASSIUM CHLORIDE 20 MEQ/PKT PACKET GT SCH (11:01)
[2018-06-12] MEDS: HYDROcodone/ACETAMIN 10-325 MG TAB GT PRN (11:02)
[2018-06-12] MEDS: PARoxetine HCL 20 MG TABLET GT SCH ×2 (11:03→20:56)
[2018-06-12] MEDS: METOPROLOL TARTRATE 50 MG TABLET GT SCH ×2 (11:04→20:54)
[2018-06-12] MEDS: VALPROIC ACID 250 MG CAPSULE (DEPAKENE) GT SCH ×3 (11:05→20:55)
[2018-06-12] MEDS: BACLOFEN 10 MG TABLET PO SCH ×3 (11:06→20:55)
[2018-06-12] MEDS: NIFEDIPINE 30 MG TAB.ER.24 PO SCH (11:06)
[2018-06-12] MEDS: BENAZEPRIL HCL 10 MG TABLET (LOTENSIN) GT SCH ×2 (11:07→20:55)
[2018-06-12] MEDS: LATANOPROST 2.5 ML DROPS (XALATAN) OP SCH (11:08)
[2018-06-12] MEDS: FLUDROCORTISONE ACETATE 0.1 MG TABLET( FLORINEF) GT SCH (15:33)
[2018-06-12] MEDS: D5/0.45 NS 1,000 ML IV SCH (15:34)
[2018-06-12 16:00] VITALS: BP_SYST 165
[2018-06-12] MEDS: ALPRAZolam 0.25 MG TABLET PO PRN (16:58)
[2018-06-12] MEDS: LEVOFLOXACIN 500 MG/D5W 100 ML IV SCH (18:41)
[2018-06-12 19:45] VITALS: BP_SYST 163
[2018-06-12 20:30] VITALS: BP_SYST 166
[2018-06-12] MEDS: CITRIC ACID/SODIUM CITRATE 30 ML UDC PO SCH (20:54)
[2018-06-12] MEDS: TRIAMCINOLONE ACETONIDE 0.025% 15 GM CREAM.GM. TP SCH (20:56)
[2018-06-12 23:00] VITALS: BP_SYST 163
[2018-06-13] MEDS ORDERED: DIPHENHYDRAMINE INJ 50 MG/ML VIAL IVP ONE (00:15)
[2018-06-13] MEDS: PANTOPRAZOLE GRANULES PACKET 40 MG GT SCH (06:28)
[2018-06-13] MEDS: HYDROCORTISONE SOD SUCC 100 MG/2 ML VIAL IVP SCH (06:28)
[2018-06-13 07:22] LABS: CALCIUM 9.3 mg/dL (8.4-11.0); CREATININE 0.98 mg/dL (0.55-1.30); POTASSIUM 3.5 mmol/L (3.5-5.1)
[2018-06-13 07:44] LABS: HEMOGLOBIN 11.4 g/dL (14.0-18.0)
[2018-06-13 07:46] LABS: MEAN CORPUSCULAR HEMOGLOBIN 33 pg (27-31); MEAN CORPUSCULAR HGB CONC 35 % (32-36); MEAN CORPUSCULAR VOLUME 96 fL (79.0-98.0); PLATELET COUNT (AUTO) 536 K/uL (130-430); RED BLOOD CELL COUNT(AUTO) 3.43 MIL/uL (4.2-6.2); RED CELL DISTRIBUTION WIDTH 12.8 % (9.0-15.0); WHITE BLOOD COUNT (AUTO) 13.1 K/uL (4.8-10.8)
[2018-06-13 08:00] VITALS: BP_SYST 161
[2018-06-13 08:17] LABS: BAND % (MANUAL) 8 % (0-6); BASOPHILS % (MANUAL) 0 % (0-2); EOSINOPHILS % (MANUAL) 0 % (0-7); LYMPHOCYTES % (MANUAL) 23 % (20-46); MONOCYTES % (MANUAL) 10 % (0-11)
[2018-06-13 08:36] LABS: ERYTHROCYTE SEDIMENTATION RATE 112 MM/HR (0-15)
[2018-06-13] MEDS: PIPERACILLIN/TAZOBACTAM 3.375 GM/ D5W 50 ML IV SCH ×6 (08:56→23:22)
[2018-06-13] MEDS: FLUDROCORTISONE ACETATE 0.1 MG TABLET( FLORINEF) GT SCH (08:57)
[2018-06-13] MEDS: BENAZEPRIL HCL 10 MG TABLET (LOTENSIN) GT SCH ×2 (08:58→21:12)
[2018-06-13] MEDS: METOPROLOL TARTRATE 50 MG TABLET GT SCH ×2 (08:58→21:11)
[2018-06-13] MEDS: VALPROIC ACID 250 MG CAPSULE (DEPAKENE) GT SCH ×3 (08:59→21:11)
[2018-06-13] MEDS: BACLOFEN 10 MG TABLET PO SCH ×3 (08:59→21:12)
[2018-06-13] MEDS: POTASSIUM CHLORIDE 20 MEQ/PKT PACKET GT SCH (08:59)
[2018-06-13] MEDS: NIFEDIPINE 30 MG TAB.ER.24 PO SCH (08:59)
[2018-06-13] MEDS: CITRIC ACID/SODIUM CITRATE 30 ML UDC PO SCH ×2 (08:59→21:13)
[2018-06-13] MEDS: PARoxetine HCL 20 MG TABLET GT SCH ×2 (08:59→21:11)
[2018-06-13] MEDS: LATANOPROST 2.5 ML DROPS (XALATAN) OP SCH (09:00)
[2018-06-13] MEDS: TRIAMCINOLONE ACETONIDE 0.025% 15 GM CREAM.GM. TP SCH ×2 (09:00→21:12)
[2018-06-13 12:24] VITALS: BP_SYST 147
[2018-06-13] MEDS: POTASSIUM CHLORIDE 10 MEQ in 0.45% NACL 1,000 ML IV SCH (13:48)
[2018-06-13 16:02] VITALS: BP_SYST 136
[2018-06-13] MEDS: LEVOFLOXACIN 500 MG/D5W 100 ML IV SCH (17:41)
[2018-06-13 20:00] VITALS: BP_SYST 200
[2018-06-13] MEDS: HYDROCORTISONE 10 MG TABLET (CORTEF) PO SCH (21:12)
[2018-06-13] MEDS ORDERED: ZOLP5TAB2 GT (21:50)
[2018-06-13] MEDS: cloNIDine HCL 0.1 MG TABLET GT PRN (23:19)
[2018-06-13] MEDS: ZOLPIDEM TARTRATE 5 MG TABLET GT SCH (23:20)
[2018-06-13 23:52] VITALS: BP_SYST 198
[2018-06-14] VITALS (8 sets, daily range): BP systolic 96–175
[2018-06-14] MEDS: PANTOPRAZOLE GRANULES PACKET 40 MG GT SCH (05:47)
[2018-06-14] MEDS: cloNIDine HCL 0.1 MG TABLET GT PRN (06:01)
[2018-06-14 06:13] LABS: CALCIUM 8.7 mg/dL (8.4-11.0); CREATININE 1.42 mg/dL (0.55-1.30); POTASSIUM 3.1 mmol/L (3.5-5.1)
[2018-06-14 06:30] LABS: BASOPHILS # (AUTO) 0.1 K/uL (0.0-0.2); BASOPHILS % (AUTO) 0.9 % (0.0-2.0); EOSINOPHILS # (AUTO) 0.1 K/uL (0.0-0.4); EOSINOPHILS % (AUTO) 0.7 % (0.0-4.0); HEMATOCRIT 27.8 % (36-54); HEMOGLOBIN 9.7 g/dL (14.0-18.0); LYMPHOCYTES # (AUTO) 4.9 K/uL (1.0-5.5); MEAN CORPUSCULAR HEMOGLOBIN 34 pg (27-31); MEAN CORPUSCULAR HGB CONC 35 % (32-36); MEAN CORPUSCULAR VOLUME 97 fL (79.0-98.0); MONOCYTES # (AUTO) 1.6 K/uL (0.0-1.0); MONOCYTES % (AUTO) 10.5 % (1.7-9.3); NEUTROPHILS # (AUTO) 8.2 K/uL (1.8-7.7); PLATELET COUNT (AUTO) 572 K/uL (130-430); RED BLOOD CELL COUNT(AUTO) 2.86 MIL/uL (4.2-6.2); RED CELL DISTRIBUTION WIDTH 13.1 % (9.0-15.0); WHITE BLOOD COUNT (AUTO) 14.9 K/uL (4.8-10.8)
[2018-06-14 07:30] LABS: NEUTROPHILS % (AUTO) 54.9 % (40.0-70.0)
[2018-06-14 07:42] LABS: C-REACTIVE PROTEIN QUANT 2.3 mg/dL (0-0.5)
[2018-06-14 08:23] LABS: ERYTHROCYTE SEDIMENTATION RATE 115 MM/HR (0-15)
[2018-06-14] MEDS: PIPERACILLIN/TAZOBACTAM 3.375 GM/ D5W 50 ML IV SCH ×2 (08:56)
[2018-06-14] MEDS: METOPROLOL TARTRATE 50 MG TABLET GT SCH ×2 (08:58→20:24)
[2018-06-14] MEDS: CITRIC ACID/SODIUM CITRATE 30 ML UDC PO SCH ×2 (08:59→20:22)
[2018-06-14] MEDS: NIFEDIPINE 30 MG TAB.ER.24 PO SCH (08:59)
[2018-06-14] MEDS: FLUDROCORTISONE ACETATE 0.1 MG TABLET( FLORINEF) GT SCH (08:59)
[2018-06-14] MEDS: HYDROCORTISONE 10 MG TABLET (CORTEF) PO SCH ×2 (08:59→20:23)
[2018-06-14] MEDS: POTASSIUM CHLORIDE 20 MEQ/PKT PACKET GT SCH (08:59)
[2018-06-14] MEDS: PARoxetine HCL 20 MG TABLET GT SCH ×2 (08:59→20:23)
[2018-06-14] MEDS: BACLOFEN 10 MG TABLET PO SCH ×3 (09:00→20:23)
[2018-06-14] MEDS: VALPROIC ACID 250 MG CAPSULE (DEPAKENE) GT SCH ×3 (09:00→20:23)
[2018-06-14] MEDS: BENAZEPRIL HCL 10 MG TABLET (LOTENSIN) GT SCH ×2 (09:00→20:25)
[2018-06-14] MEDS: LATANOPROST 2.5 ML DROPS (XALATAN) OP SCH (09:06)
[2018-06-14] MEDS: TRIAMCINOLONE ACETONIDE 0.025% 15 GM CREAM.GM. TP SCH ×2 (09:06→20:30)
[2018-06-14] MEDS: POTASSIUM CHLORIDE 10 MEQ in 0.45% NACL 1,000 ML IV SCH (12:41)
[2018-06-14] MEDS: LEVOFLOXACIN 500 MG/D5W 100 ML IV SCH (17:44)
[2018-06-14] MEDS ORDERED: POTASSIUM CHLORIDE 20 MEQ TAB.PRT.SR GT ONE (19:30)
[2018-06-14] MEDS ORDERED: POTASSIUM CHLORIDE 20 MEQ/PKT PACKET GT ONE (20:15)
[2018-06-14] MEDS: ZOLPIDEM TARTRATE 5 MG TABLET GT SCH (23:07)
[2018-06-15 00:30] VITALS: BP_SYST 128
[2018-06-15] MEDS: PANTOPRAZOLE GRANULES PACKET 40 MG GT SCH (05:26)
[2018-06-15 07:35] LABS: BASOPHILS # (AUTO) 0.3 K/uL (0.0-0.2); BASOPHILS % (AUTO) 1.4 % (0.0-2.0); EOSINOPHILS # (AUTO) 0.1 K/uL (0.0-0.4); EOSINOPHILS % (AUTO) 0.8 % (0.0-4.0); HEMATOCRIT 29.5 % (36-54); HEMOGLOBIN 10.1 g/dL (14.0-18.0); LYMPHOCYTES # (AUTO) 5.2 K/uL (1.0-5.5); LYMPHOCYTES % (AUTO) 28.6 % (20.5-51.5); MEAN CORPUSCULAR HEMOGLOBIN 33 pg (27-31); MEAN CORPUSCULAR HGB CONC 34 % (32-36); MEAN CORPUSCULAR VOLUME 95 fL (79.0-98.0); MONOCYTES # (AUTO) 1.1 K/uL (0.0-1.0); NEUTROPHILS # (AUTO) 11.4 K/uL (1.8-7.7); NEUTROPHILS % (AUTO) 63.2 % (40.0-70.0); PLATELET COUNT (AUTO) 630 K/uL (130-430); RED BLOOD CELL COUNT(AUTO) 3.11 MIL/uL (4.2-6.2); RED CELL DISTRIBUTION WIDTH 13.2 % (9.0-15.0); WHITE BLOOD COUNT (AUTO) 18.1 K/uL (4.8-10.8)
[2018-06-15 07:45] LABS: C-REACTIVE PROTEIN QUANT 2.4 mg/dL (0-0.5); CALCIUM 9.2 mg/dL (8.4-11.0); CREATININE 1.29 mg/dL (0.55-1.30); POTASSIUM 3.7 mmol/L (3.5-5.1)
[2018-06-15 07:49] VITALS: BP_SYST 197
[2018-06-15] MEDS: cloNIDine HCL 0.1 MG TABLET GT PRN ×2 (07:55→14:58)
[2018-06-15 08:45] LABS: ERYTHROCYTE SEDIMENTATION RATE 108 MM/HR (0-15)
[2018-06-15] MEDS: LATANOPROST 2.5 ML DROPS (XALATAN) OP SCH (09:20)
[2018-06-15] MEDS: POTASSIUM CHLORIDE 20 MEQ/PKT PACKET GT SCH (09:20)
[2018-06-15] MEDS: CITRIC ACID/SODIUM CITRATE 30 ML UDC PO SCH (09:20)
[2018-06-15] MEDS: METOPROLOL TARTRATE 50 MG TABLET GT SCH ×2 (09:21→21:17)
[2018-06-15] MEDS: FLUDROCORTISONE ACETATE 0.1 MG TABLET( FLORINEF) GT SCH (09:21)
[2018-06-15] MEDS: VALPROIC ACID 250 MG CAPSULE (DEPAKENE) GT SCH ×3 (09:21→21:18)
[2018-06-15] MEDS: BENAZEPRIL HCL 10 MG TABLET (LOTENSIN) GT SCH ×2 (09:21→21:18)
[2018-06-15] MEDS: HYDROCORTISONE 10 MG TABLET (CORTEF) PO SCH ×2 (09:21→21:18)
[2018-06-15] MEDS: BACLOFEN 10 MG TABLET PO SCH ×3 (09:22→21:18)
[2018-06-15] MEDS: PARoxetine HCL 20 MG TABLET GT SCH ×2 (09:22→21:18)
[2018-06-15] MEDS: NIFEDIPINE 30 MG TAB.ER.24 PO SCH (09:22)
[2018-06-15] MEDS: TRIAMCINOLONE ACETONIDE 0.025% 15 GM CREAM.GM. TP SCH ×2 (09:23→21:00)
[2018-06-15 12:43] VITALS: BP_SYST 140
[2018-06-15] MEDS: POTASSIUM CHLORIDE 10 MEQ in 0.45% NACL 1,000 ML IV SCH (13:13)
[2018-06-15] MEDS: ALPRAZolam 0.25 MG TABLET PO PRN (14:58)
[2018-06-15 16:38] VITALS: BP_SYST 169
[2018-06-15] MEDS: LEVOFLOXACIN 500 MG/D5W 100 ML IV SCH (17:35)
[2018-06-15 20:00] VITALS: BP_SYST 121
[2018-06-15 23:59] VITALS: BP_SYST 111
[2018-06-16] MEDS: PANTOPRAZOLE GRANULES PACKET 40 MG GT SCH (05:27)
[2018-06-16 07:09] LABS: BASOPHILS # (AUTO) 0.2 K/uL (0.0-0.2); BASOPHILS % (AUTO) 0.8 % (0.0-2.0); EOSINOPHILS # (AUTO) 0.1 K/uL (0.0-0.4); EOSINOPHILS % (AUTO) 0.3 % (0.0-4.0); HEMATOCRIT 30.8 % (36-54); HEMOGLOBIN 10.2 g/dL (14.0-18.0); LYMPHOCYTES # (AUTO) 4.4 K/uL (1.0-5.5); LYMPHOCYTES % (AUTO) 22.4 % (20.5-51.5); MEAN CORPUSCULAR HEMOGLOBIN 32 pg (27-31); MEAN CORPUSCULAR HGB CONC 33 % (32-36); MEAN CORPUSCULAR VOLUME 96 fL (79.0-98.0); MONOCYTES # (AUTO) 2.1 K/uL (0.0-1.0); MONOCYTES % (AUTO) 10.4 % (1.7-9.3); NEUTROPHILS # (AUTO) 13.1 K/uL (1.8-7.7); PLATELET COUNT (AUTO) 595 K/uL (130-430); RED CELL DISTRIBUTION WIDTH 13.5 % (9.0-15.0); WHITE BLOOD COUNT (AUTO) 19.9 K/uL (4.8-10.8)
[2018-06-16 07:31] LABS: CREATININE 1.61 mg/dL (0.55-1.30); POTASSIUM 4.4 mmol/L (3.5-5.1); TOTAL BILIRUBIN 0.2 mg/dL (0.0-1.0)
[2018-06-16 07:32] LABS: ALBUMIN 1.9 g/dL (3.4-4.8); C-REACTIVE PROTEIN QUANT 10.6 mg/dL (0-0.5)
[2018-06-16 07:50] VITALS: BP_SYST 189
[2018-06-16 08:05] LABS: ERYTHROCYTE SEDIMENTATION RATE 107 MM/HR (0-15)
[2018-06-16] MEDS: BACLOFEN 10 MG TABLET PO SCH ×3 (08:41→20:54)
[2018-06-16] MEDS: LATANOPROST 2.5 ML DROPS (XALATAN) OP SCH (08:42)
[2018-06-16] MEDS: HYDROCORTISONE 10 MG TABLET (CORTEF) PO SCH ×2 (08:42→20:54)
[2018-06-16] MEDS: PARoxetine HCL 20 MG TABLET GT SCH ×2 (08:42→20:54)
[2018-06-16] MEDS: POTASSIUM CHLORIDE 20 MEQ/PKT PACKET GT SCH (08:42)
[2018-06-16] MEDS: VALPROIC ACID 250 MG CAPSULE (DEPAKENE) GT SCH ×3 (08:42→20:53)
[2018-06-16] MEDS: BENAZEPRIL HCL 10 MG TABLET (LOTENSIN) GT SCH ×2 (08:43→20:53)
[2018-06-16] MEDS: NIFEDIPINE 30 MG TAB.ER.24 PO SCH (08:43)
[2018-06-16] MEDS: METOPROLOL TARTRATE 50 MG TABLET GT SCH ×2 (08:44→20:53)
[2018-06-16] MEDS: FLUDROCORTISONE ACETATE 0.1 MG TABLET( FLORINEF) GT SCH (08:48)
[2018-06-16] MEDS: TRIAMCINOLONE ACETONIDE 0.025% 15 GM CREAM.GM. TP SCH ×2 (09:30→20:54)
[2018-06-16 09:39] LABS: NEUTROPHILS % (AUTO) 66.1 % (40.0-70.0)
[2018-06-16] MEDS: NACL 0.9% 1,000 ML IV SCH (12:13)
[2018-06-16 12:43] VITALS: BP_SYST 152
[2018-06-16] MEDS: metroNIDAZOLE 250 mg/NS 50 ML IV SCH ×2 (13:34→21:40)
[2018-06-16 16:48] VITALS: BP_SYST 143
[2018-06-16] MEDS: LEVOFLOXACIN 500 MG/D5W 100 ML IV SCH (17:16)
[2018-06-16 20:00] VITALS: BP_SYST 190
[2018-06-16] MEDS: ACETAMINOPHEN 325 MG TABLET GT PRN (22:28)
[2018-06-16] MEDS: cloNIDine HCL 0.1 MG TABLET GT PRN (22:28)
[2018-06-17 01:29] VITALS: BP_SYST 156
[2018-06-17] MEDS: NACL 0.9% 1,000 ML IV SCH ×2 (03:30→23:25)
[2018-06-17 04:48] VITALS: BP_SYST 148
[2018-06-17] MEDS: PANTOPRAZOLE GRANULES PACKET 40 MG GT SCH (05:29)
[2018-06-17] MEDS: metroNIDAZOLE 250 mg/NS 50 ML IV SCH ×3 (05:30→21:21)
[2018-06-17 06:51] LABS: HEMOGLOBIN 8.8 g/dL (14.0-18.0); MEAN CORPUSCULAR HEMOGLOBIN 34 pg (27-31); MEAN CORPUSCULAR HGB CONC 35 % (32-36); MEAN CORPUSCULAR VOLUME 96 fL (79.0-98.0); PLATELET COUNT (AUTO) 594 K/uL (130-430); RED CELL DISTRIBUTION WIDTH 13.7 % (9.0-15.0); WHITE BLOOD COUNT (AUTO) 22.9 K/uL (4.8-10.8)
[2018-06-17 07:10] LABS: CALCIUM 8.7 mg/dL (8.4-11.0); CREATININE 1.5 mg/dL (0.55-1.30); PHOSPHORUS 4.5 mg/dL (2.7-4.5); POTASSIUM 4.1 mmol/L (3.5-5.1)
[2018-06-17 07:47] LABS: C-REACTIVE PROTEIN QUANT 15.7 mg/dL (0-0.5)
[2018-06-17 08:00] VITALS: BP_SYST 189
[2018-06-17 08:15] LABS: ERYTHROCYTE SEDIMENTATION RATE 124 MM/HR (0-15)
[2018-06-17 09:32] LABS: ATYPICAL LYMPHOCYTES % 0 % (0-0); BAND % (MANUAL) 0 % (0-6); BASOPHILS % (MANUAL) 0 % (0-2); EOSINOPHILS % (MANUAL) 0 % (0-7); LYMPHOCYTES % (MANUAL) 21 % (20-46); MONOCYTES % (MANUAL) 8 % (0-11)
[2018-06-17] MEDS: PARoxetine HCL 20 MG TABLET GT SCH ×2 (10:11→21:21)
[2018-06-17] MEDS: POTASSIUM CHLORIDE 20 MEQ/PKT PACKET GT SCH (10:11)
[2018-06-17] MEDS: cloNIDine HCL 0.3 MG/24 HR PATCH.TDWK TD SCH (10:11)
[2018-06-17] MEDS: VALPROIC ACID 250 MG CAPSULE (DEPAKENE) GT SCH ×3 (10:11→21:21)
[2018-06-17] MEDS: METOPROLOL TARTRATE 50 MG TABLET GT SCH ×2 (10:12→21:24)
[2018-06-17] MEDS: BACLOFEN 10 MG TABLET PO SCH ×3 (10:12→21:22)
[2018-06-17] MEDS: NIFEDIPINE 30 MG TAB.ER.24 PO SCH (10:13)
[2018-06-17] MEDS: FLUDROCORTISONE ACETATE 0.1 MG TABLET( FLORINEF) GT SCH (10:13)
[2018-06-17] MEDS: HYDROCORTISONE 10 MG TABLET (CORTEF) PO SCH ×2 (10:13→21:28)
[2018-06-17] MEDS: BENAZEPRIL HCL 10 MG TABLET (LOTENSIN) GT SCH ×2 (10:13→21:23)
[2018-06-17] MEDS: TRIAMCINOLONE ACETONIDE 0.025% 15 GM CREAM.GM. TP SCH ×2 (10:14→21:20)
[2018-06-17] MEDS: LATANOPROST 2.5 ML DROPS (XALATAN) OP SCH (10:14)
[2018-06-17] MEDS: cloNIDine HCL 0.1 MG TABLET GT PRN (12:01)
[2018-06-17] MEDS: ACETAMINOPHEN 325 MG TABLET GT PRN (12:01)
[2018-06-17 12:11] VITALS: BP_SYST 180
[2018-06-17] MEDS ORDERED: Nifedipine PO (12:37)
[2018-06-17 16:37] VITALS: BP_SYST 114
[2018-06-17] MEDS: PIPERACILLIN/TAZO 2.25G/DEX-IS 50 ML IV SCH ×2 (18:03→23:25)
[2018-06-17 20:42] VITALS: BP_SYST 153
[2018-06-18 02:31] VITALS: BP_SYST 155
[2018-06-18] MEDS: PANTOPRAZOLE GRANULES PACKET 40 MG GT SCH (05:02)
[2018-06-18] MEDS: PIPERACILLIN/TAZO 2.25G/DEX-IS 50 ML IV SCH ×3 (05:03→17:07)
[2018-06-18] MEDS: metroNIDAZOLE 250 mg/NS 50 ML IV SCH ×3 (05:03→22:21)
[2018-06-18 07:32] LABS: CALCIUM 9.1 mg/dL (8.4-11.0); CREATININE 1.53 mg/dL (0.55-1.30); POTASSIUM 4.5 mmol/L (3.5-5.1)
[2018-06-18 07:39] LABS: BASOPHILS # (AUTO) 0.1 K/uL (0.0-0.2); BASOPHILS % (AUTO) 0.3 % (0.0-2.0); EOSINOPHILS % (AUTO) 0.1 % (0.0-4.0); HEMATOCRIT 24.5 % (36-54); HEMOGLOBIN 8.3 g/dL (14.0-18.0); LYMPHOCYTES # (AUTO) 2.9 K/uL (1.0-5.5); LYMPHOCYTES % (AUTO) 15.8 % (20.5-51.5); MEAN CORPUSCULAR HEMOGLOBIN 33 pg (27-31); MEAN CORPUSCULAR HGB CONC 34 % (32-36); MEAN CORPUSCULAR VOLUME 97 fL (79.0-98.0); MONOCYTES # (AUTO) 2.2 K/uL (0.0-1.0); MONOCYTES % (AUTO) 11.8 % (1.7-9.3); NEUTROPHILS # (AUTO) 13.4 K/uL (1.8-7.7); PLATELET COUNT (AUTO) 603 K/uL (130-430); RED BLOOD CELL COUNT(AUTO) 2.53 MIL/uL (4.2-6.2); RED CELL DISTRIBUTION WIDTH 13.9 % (9.0-15.0); WHITE BLOOD COUNT (AUTO) 18.6 K/uL (4.8-10.8)
[2018-06-18 08:00] VITALS: BP_SYST 148
[2018-06-18] MEDS: BENAZEPRIL HCL 10 MG TABLET (LOTENSIN) GT SCH ×2 (08:53→21:03)
[2018-06-18] MEDS: NIFEDIPINE 30 MG TAB.ER.24 PO SCH (08:53)
[2018-06-18] MEDS: PARoxetine HCL 20 MG TABLET GT SCH ×2 (08:54→20:52)
[2018-06-18] MEDS: POTASSIUM CHLORIDE 20 MEQ/PKT PACKET GT SCH (08:54)
[2018-06-18] MEDS: FLUDROCORTISONE ACETATE 0.1 MG TABLET( FLORINEF) GT SCH (08:54)
[2018-06-18] MEDS: METOPROLOL TARTRATE 50 MG TABLET GT SCH ×2 (08:54→21:00)
[2018-06-18] MEDS: BACLOFEN 10 MG TABLET PO SCH ×3 (08:54→20:52)
[2018-06-18] MEDS: HYDROCORTISONE 10 MG TABLET (CORTEF) PO SCH ×2 (08:54→20:52)
[2018-06-18] MEDS: LATANOPROST 2.5 ML DROPS (XALATAN) OP SCH (08:55)
[2018-06-18] MEDS: TRIAMCINOLONE ACETONIDE 0.025% 15 GM CREAM.GM. TP SCH ×2 (08:55→21:12)
[2018-06-18] MEDS: VALPROIC ACID 250 MG CAPSULE (DEPAKENE) GT SCH ×3 (08:58→20:52)
[2018-06-18] MEDS: ACETAMINOPHEN 325 MG TABLET GT PRN (10:54)
[2018-06-18] MEDS: NACL 0.9% 1,000 ML IV SCH (11:50)
[2018-06-18] MEDS: HYDROcodone/ACETAMIN 5-325 MG TAB (NORCO/ VICODIN) GT PRN (11:56)
[2018-06-18 12:39] VITALS: BP_SYST 116
[2018-06-18 16:14] VITALS: BP_SYST 101
[2018-06-18 20:56] VITALS: BP_SYST 98
[2018-06-19] MEDS: PIPERACILLIN/TAZO 2.25G/DEX-IS 50 ML IV SCH ×5 (00:24→23:42)
[2018-06-19 00:56] VITALS: BP_SYST 100
[2018-06-19] MEDS: NACL 0.9% 1,000 ML IV SCH ×2 (04:55→11:24)
[2018-06-19] MEDS: PANTOPRAZOLE GRANULES PACKET 40 MG GT SCH (05:19)
[2018-06-19] MEDS: metroNIDAZOLE 250 mg/NS 50 ML IV SCH ×3 (05:54→21:27)
[2018-06-19 07:45] LABS: CALCIUM 9.2 mg/dL (8.4-11.0); CREATININE 1.54 mg/dL (0.55-1.30); PHOSPHORUS 5.8 mg/dL (2.7-4.5); POTASSIUM 4.5 mmol/L (3.5-5.1)
[2018-06-19 07:50] LABS: BASOPHILS # (AUTO) 0.1 K/uL (0.0-0.2); EOSINOPHILS # (AUTO) 0.2 K/uL (0.0-0.4); MEAN CORPUSCULAR HGB CONC 33 % (32-36); RED BLOOD CELL COUNT(AUTO) 2.56 MIL/uL (4.2-6.2)
[2018-06-19 08:32] LABS: C-REACTIVE PROTEIN QUANT 31.3 mg/dL (0-0.5)
[2018-06-19 08:51] LABS: HEMATOCRIT 25.2 % (36-54); HEMOGLOBIN 8.2 g/dL (14.0-18.0); MEAN CORPUSCULAR HEMOGLOBIN 32 pg (27-31); MEAN CORPUSCULAR VOLUME 98 fL (79.0-98.0); PLATELET COUNT (AUTO) 593 K/uL (130-430); RED CELL DISTRIBUTION WIDTH 15.1 % (9.0-15.0); WHITE BLOOD COUNT (AUTO) 17.8 K/uL (4.8-10.8)
[2018-06-19 08:52] LABS: BASOPHILS % (AUTO) 0.7 % (0.0-2.0); EOSINOPHILS % (AUTO) 1.2 % (0.0-4.0); LYMPHOCYTES # (AUTO) 2.4 K/uL (1.0-5.5); LYMPHOCYTES % (AUTO) 13.4 % (20.5-51.5); MONOCYTES % (AUTO) 11.3 % (1.7-9.3); NEUTROPHILS # (AUTO) 13.1 K/uL (1.8-7.7); NEUTROPHILS % (AUTO) 73.4 % (40.0-70.0)
[2018-06-19] MEDS: HYDROCORTISONE 10 MG TABLET (CORTEF) PO SCH ×2 (09:22→21:28)
[2018-06-19] MEDS: METOPROLOL TARTRATE 50 MG TABLET GT SCH ×2 (09:22→21:29)
[2018-06-19] MEDS: NIFEDIPINE 30 MG TAB.ER.24 PO SCH (09:23)
[2018-06-19] MEDS: PARoxetine HCL 20 MG TABLET GT SCH ×2 (09:23→21:28)
[2018-06-19] MEDS: POTASSIUM CHLORIDE 20 MEQ/PKT PACKET GT SCH (09:23)
[2018-06-19] MEDS: BENAZEPRIL HCL 10 MG TABLET (LOTENSIN) GT SCH ×2 (09:24→21:28)
[2018-06-19] MEDS: BACLOFEN 10 MG TABLET PO SCH ×3 (09:24→21:28)
[2018-06-19] MEDS: HYDROcodone/ACETAMIN 10-325 MG TAB GT PRN (09:25)
[2018-06-19] MEDS: TRIAMCINOLONE ACETONIDE 0.025% 15 GM CREAM.GM. TP SCH ×2 (09:26→21:30)
[2018-06-19] MEDS: VALPROIC ACID 250 MG CAPSULE (DEPAKENE) GT SCH ×3 (09:54→21:29)
[2018-06-19] MEDS: FLUDROCORTISONE ACETATE 0.1 MG TABLET( FLORINEF) GT SCH (09:54)
[2018-06-19 11:15] LABS: ERYTHROCYTE SEDIMENTATION RATE > 140 MM/HR (0-15)
[2018-06-19] MEDS: LATANOPROST 2.5 ML DROPS (XALATAN) OP SCH (11:24)
[2018-06-19 11:33] VITALS: BP_SYST 112
[2018-06-19 15:26] VITALS: BP_SYST 133
[2018-06-19 20:00] VITALS: BP_SYST 156
[2018-06-20 00:31] VITALS: BP_SYST 156
[2018-06-20] MEDS: PIPERACILLIN/TAZO 2.25G/DEX-IS 50 ML IV SCH ×3 (05:23→17:09)
[2018-06-20] MEDS: PANTOPRAZOLE GRANULES PACKET 40 MG GT SCH (05:23)
[2018-06-20] MEDS: metroNIDAZOLE 250 mg/NS 50 ML IV SCH ×3 (05:23→21:07)
[2018-06-20 06:50] LABS: BASOPHILS # (AUTO) 0.1 K/uL (0.0-0.2); BASOPHILS % (AUTO) 0.4 % (0.0-2.0); EOSINOPHILS # (AUTO) 0.2 K/uL (0.0-0.4); HEMATOCRIT 22.3 % (36-54); HEMOGLOBIN 7.4 g/dL (14.0-18.0); LYMPHOCYTES # (AUTO) 2.6 K/uL (1.0-5.5); LYMPHOCYTES % (AUTO) 15.4 % (20.5-51.5); MEAN CORPUSCULAR HEMOGLOBIN 32 pg (27-31); MEAN CORPUSCULAR HGB CONC 33 % (32-36); MEAN CORPUSCULAR VOLUME 97 fL (79.0-98.0); MONOCYTES # (AUTO) 1.4 K/uL (0.0-1.0); MONOCYTES % (AUTO) 8.1 % (1.7-9.3); NEUTROPHILS # (AUTO) 12.5 K/uL (1.8-7.7); NEUTROPHILS % (AUTO) 75.1 % (40.0-70.0); PLATELET COUNT (AUTO) 585 K/uL (130-430); RED BLOOD CELL COUNT(AUTO) 2.31 MIL/uL (4.2-6.2); RED CELL DISTRIBUTION WIDTH 14.1 % (9.0-15.0); WHITE BLOOD COUNT (AUTO) 16.8 K/uL (4.8-10.8)
[2018-06-20 07:26] LABS: ALBUMIN 1.3 g/dL (3.4-4.8); CALCIUM 8.8 mg/dL (8.4-11.0); CREATININE 1.17 mg/dL (0.55-1.30); POTASSIUM 4.2 mmol/L (3.5-5.1); TOTAL BILIRUBIN 0.2 mg/dL (0.0-1.0)
[2018-06-20 07:43] LABS: C-REACTIVE PROTEIN QUANT 28.9 mg/dL (0-0.5)
[2018-06-20 07:53] VITALS: BP_SYST 166
[2018-06-20 08:04] LABS: ERYTHROCYTE SEDIMENTATION RATE 140 MM/HR (0-15)
[2018-06-20] MEDS: LATANOPROST 2.5 ML DROPS (XALATAN) OP SCH (08:57)
[2018-06-20] MEDS: HYDROCORTISONE 10 MG TABLET (CORTEF) PO SCH ×2 (08:57→21:05)
[2018-06-20] MEDS: POTASSIUM CHLORIDE 20 MEQ/PKT PACKET GT SCH (08:57)
[2018-06-20] MEDS: NIFEDIPINE 30 MG TAB.ER.24 PO SCH (08:58)
[2018-06-20] MEDS: PARoxetine HCL 20 MG TABLET GT SCH ×2 (08:58→21:04)
[2018-06-20] MEDS: BENAZEPRIL HCL 10 MG TABLET (LOTENSIN) GT SCH ×2 (08:58→21:06)
[2018-06-20] MEDS: METOPROLOL TARTRATE 50 MG TABLET GT SCH ×2 (08:59→21:05)
[2018-06-20] MEDS: TRIAMCINOLONE ACETONIDE 0.025% 15 GM CREAM.GM. TP SCH ×2 (08:59→21:07)
[2018-06-20] MEDS: BACLOFEN 10 MG TABLET PO SCH ×3 (08:59→21:04)
[2018-06-20] MEDS: FLUDROCORTISONE ACETATE 0.1 MG TABLET( FLORINEF) GT SCH (08:59)
[2018-06-20] MEDS: VALPROIC ACID 250 MG CAPSULE (DEPAKENE) GT SCH ×3 (08:59→21:04)
[2018-06-20] MEDS: NACL 0.9% 1,000 ML IV SCH (10:18)
[2018-06-20 12:44] VITALS: BP_SYST 100
[2018-06-20] MEDS ORDERED: PIPE4.5F2 IV (13:06)
[2018-06-20 13:26] LABS: PROTHROMBIN TIME 10.4 SECS (9.5-12.5)
[2018-06-20 16:32] VITALS: BP_SYST 143
[2018-06-20 16:52] VITALS: BP_SYST 142
[2018-06-20 19:45] VITALS: BP_SYST 158
== END 2018-06-20 22:15 | disposition home health service (06) | DRG 871 ==
LOC: SED 07:04 → SIC 11:15 → SMU 06-11 16:10 → STU 06-11 16:38 → SMU 06-13 07:44
PROVIDERS: ADMIT Preventive Medicine Preventive Medicine/Occupational Environmental Medicine; ATTEND Preventive Medicine Preventive Medicine/Occupational Environmental Medicine
PROC: 02HV33Z Insertion of Infusion Device into Superior Vena Cava, Percutaneous Approach (ICD-10-PCS; principal; 2018-06-10)
PROC: B548ZZA Ultrasonography of Superior Vena Cava, Guidance (ICD-10-PCS; 2018-06-10)
DX: A41.9 Sepsis, unspecified organism (principal); J96.00 Acute respiratory failure, unspecified whether with hypoxia or hypercapnia; R65.21 Severe sepsis with septic shock; J18.9 Pneumonia, unspecified organism; E27.40 Unspecified adrenocortical insufficiency; E71.529 X-linked adrenoleukodystrophy, unspecified type; E72.20 Disorder of urea cycle metabolism, unspecified; E75.29 Other sphingolipidosis; E87.1 Hypo-osmolality and hyponatremia; E87.2 Acidosis; N17.9 Acute kidney failure, unspecified; D64.9 Anemia, unspecified; E11.21 Type 2 diabetes mellitus with diabetic nephropathy; E11.22 Type 2 diabetes mellitus with diabetic chronic kidney disease; E11.65 Type 2 diabetes mellitus with hyperglycemia; E83.39 Other disorders of phosphorus metabolism; E87.5 Hyperkalemia; E88.09 Other disorders of plasma-protein metabolism, not elsewhere classified; F79 Unspecified intellectual disabilities; G40.909 Epilepsy, unspecified, not intractable, without status epilepticus; I12.9 Hypertensive chronic kidney disease with stage 1 through stage 4 chronic kidney disease, or unspecified chronic kidney disease; J45.909 Unspecified asthma, uncomplicated; N18.9 Chronic kidney disease, unspecified; R13.10 Dysphagia, unspecified; T38.0X5A Adverse effect of glucocorticoids and synthetic analogues, initial encounter; F41.9 Anxiety disorder, unspecified; D69.6 Thrombocytopenia, unspecified; Z87.01 Personal history of pneumonia (recurrent); Z74.01 Bed confinement status; Z93.1 Gastrostomy status; Y92.89 Other specified places as the place of occurrence of the external cause; Z79.899 Other long term (current) drug therapy
CPT/HCPCS: 36415; 71045; 76700-TC; 80048; 80053; 81000-TC; 82570-TC; 83605; 83735-TC; 83880; 84100-TC; 84302-TC; 84484; 85007; 85025; 85027; 85379; 85610-TC; 85651-TC; 85730-TC; 86140; 86738; 87040-TC; 87081; 87086; 87449; 93005; 93306; 93970; 93971; 96361; 96365; 99291; C1751; G0378; J0696; J1200; J1720; J1956; J2543; J3370; J3480; J3490; J7030; J7040; J7050; J7060

== ENCOUNTER 2018-06-21 15:13 | Inpatient (IN) | payer BC, MEDICAID ==
[~2018-06-21] VITALS: Ht 149.9 cm; Wt 44.0 kg
[2018-06-21] VITALS (8 sets, daily range): BP systolic 85–158
[~2018-06-21 15:13] MED LIST changes: -BENA10TA2 GT; -CAT3PAT TD; +Nifedipine PO; +PIPE4.5F2 IV; +ZOLP5TAB2 GT
[2018-06-21] MEDS ORDERED: NACL 0.9% 1,000 ML IV ONE (15:20)
[2018-06-21] MEDS ORDERED: NS 1000 ML IV.SOLN IV ONE (15:30)
[2018-06-21] MEDS ORDERED: cefTRIAXone 1 GM IVPB PREMIX 50 ML IV ONE (15:30)
[2018-06-21] MEDS ORDERED: HYDROCORTISONE SOD SUCC 100 MG/2 ML VIAL IVP ONE (16:00)
[2018-06-21 16:25] LABS: BILIRUBIN,URINE NEGATIVE (NEGATIVE); BLOOD, URINE NEGATIVE (NEGATIVE); CLARITY/URINE CLEAR (CLEAR); COLOR,URINE YELLOW (YELLOW); GLUCOSE,URINE NEGATIVE (NEGATIVE); KETONES,URINE NEGATIVE (NEGATIVE); LEUKOCYTE ESTERASE ,URINE NEGATIVE (NEGATIVE); NITRITE, URINE NEGATIVE (NEGATIVE); PROTEIN URINE 2+ (NEGATIVE); UROBILINOGEN,URINE 0.2 (0.2-1.0)
[2018-06-21 16:28] LABS: MEAN CORPUSCULAR HEMOGLOBIN 33 pg (27-31); MEAN CORPUSCULAR HGB CONC 34 % (32-36); MEAN CORPUSCULAR VOLUME 95 fL (79.0-98.0); PLATELET COUNT (AUTO) 675 K/uL (130-430); RED BLOOD CELL COUNT(AUTO) 2.13 MIL/uL (4.2-6.2); RED CELL DISTRIBUTION WIDTH 13.9 % (9.0-15.0); WHITE BLOOD COUNT (AUTO) 18.3 K/uL (4.8-10.8)
[2018-06-21 16:48] LABS: CREATININE 1.12 mg/dL (0.55-1.30); POTASSIUM 3.5 mmol/L (3.5-5.1)
[2018-06-21 16:51] LABS: ALBUMIN 1.2 g/dL (3.4-4.8); TOTAL BILIRUBIN 0.3 mg/dL (0.0-1.0)
[2018-06-21 16:54] LABS: BACTERIA,URINE RARE /HPF (None Seen); MUCUS,URINE None Seen /LPF (None Seen); RBC,URINE 0-3 /HPF (0-3); WBC,URINE 0-3 /HPF (0-3)
[2018-06-21 16:58] LABS: HEMATOCRIT 20.2 % (36-54); HEMOGLOBIN 6.9 g/dL (14.0-18.0)
[2018-06-21 17:14] LABS: PROTHROMBIN TIME 10.5 SECS (9.5-12.5)
[2018-06-21] MEDS ORDERED: NOREPINEPHRINE BITARTRATE 4 MG in NS 246 ML IV ONE (17:30)
[2018-06-21] MEDS ORDERED: VANCOMYCIN HCL 1,000 MG in NS 250 ML IV ONE (17:30)
[2018-06-21] MEDS ORDERED: CEFEPIME 1 GM in D5W 50 ML IV ONE (17:30)
[2018-06-21] MEDS ORDERED: NS 500 ML IV ONE (17:30)
[2018-06-21] MEDS ORDERED: CEFEPIME 1 GM/VIAL (MAXIPIME) ONE (17:43)
[2018-06-21] MEDS: NACL 0.9% 1,000 ML IV SCH (18:41)
[2018-06-21 18:47] LABS: BAND % (MANUAL) 15 % (0-6); BASOPHILS % (MANUAL) 0 % (0-2); EOSINOPHILS % (MANUAL) 3 % (0-7); LYMPHOCYTES % (MANUAL) 14 % (20-46); MONOCYTES % (MANUAL) 5 % (0-11)
[2018-06-21] MEDS ORDERED: ZOLPIDEM TARTRATE 5 MG TABLET GT PRN (19:15)
[2018-06-21] MEDS ORDERED: ALPRAZolam 0.25 MG TABLET GT PRN (19:15)
[2018-06-21] MEDS ORDERED: ACETAMINOPHEN 650 MG/20.3 ML UDC GT PRN (19:30)
[2018-06-21] MEDS ORDERED: INSULIN REGULAR, HUMAN 100 UNITS/ML, 10 ML VIAL (novoLIN R) SUBCUT PRN (19:45)
[2018-06-21] MEDS ORDERED: DEXTROSE 50% JECT 50 ML DISP.SYRIN IVP PRN (19:45)
[2018-06-21] MEDS ORDERED: VANCOMYCIN HCL 1000 MG/VIAL IV ONE (19:56)
[2018-06-21 20:08] LABS: TOTAL IRON BIND. CAPACITY 223 ug/dL (250-450)
[2018-06-21 20:20] LABS: FREE T4 (FREE THYROXINE) 0.6 ng/dL (0.6-1.6); THYROID STIMULATING HORMONE 6.1 uIu/mL (0.34-4.82)
[2018-06-21] MEDS: HYDROCORTISONE 10 MG TABLET (CORTEF) GT SCH (21:54)
[2018-06-21] MEDS: BACLOFEN 10 MG TABLET GT SCH (21:54)
[2018-06-21] MEDS: VALPROIC ACID 250 MG CAPSULE (DEPAKENE) GT SCH (21:54)
[2018-06-21] MEDS: PARoxetine HCL 20 MG TABLET GT SCH (21:54)
[2018-06-21] MEDS: PANTOPRAZOLE SODIUM 40 MG/VIAL (PROTONIX) IVP SCH (21:55)
[2018-06-21] MEDS: METOPROLOL TARTRATE 50 MG TABLET GT SCH (21:55)
[2018-06-21] MEDS ORDERED: LATANOPROST 2.5 ML DROPS (XALATAN) OP SCH (22:00)
[2018-06-22] VITALS (20 sets, daily range): BP systolic 91–196
[2018-06-22] MEDS: cloNIDine HCL 0.1 MG TABLET GT PRN ×3 (00:56→05:03)
[2018-06-22] MEDS ORDERED: hydrALAZINE HCL 20 MG/ML VIAL ONE (06:16)
[2018-06-22 06:31] LABS: ALBUMIN 1.4 g/dL (3.4-4.8); CALCIUM 9.2 mg/dL (8.4-11.0); CREATININE 0.82 mg/dL (0.55-1.30); POTASSIUM 3.2 mmol/L (3.5-5.1); TOTAL BILIRUBIN 0.3 mg/dL (0.0-1.0)
[2018-06-22 07:02] LABS: BASOPHILS % (AUTO) 0.3 % (0.0-2.0); EOSINOPHILS % (AUTO) 0.1 % (0.0-4.0); HEMATOCRIT 32.3 % (36-54); HEMOGLOBIN 10.6 g/dL (14.0-18.0); LYMPHOCYTES # (AUTO) 1.8 K/uL (1.0-5.5); MEAN CORPUSCULAR HEMOGLOBIN 30 pg (27-31); MEAN CORPUSCULAR HGB CONC 33 % (32-36); MEAN CORPUSCULAR VOLUME 92 fL (79.0-98.0); MONOCYTES # (AUTO) 0.7 K/uL (0.0-1.0); MONOCYTES % (AUTO) 4.7 % (1.7-9.3); PLATELET COUNT (AUTO) 622 K/uL (130-430); RED CELL DISTRIBUTION WIDTH 14.9 % (9.0-15.0); WHITE BLOOD COUNT (AUTO) 15.5 K/uL (4.8-10.8)
[2018-06-22 08:24] LABS: NEUTROPHILS % (AUTO) 83.1 % (40.0-70.0)
[2018-06-22 08:25] LABS: LYMPHOCYTES % (AUTO) 11.8 % (20.5-51.5)
[2018-06-22] MEDS: VALPROIC ACID 250 MG CAPSULE (DEPAKENE) GT SCH ×3 (08:37→21:22)
[2018-06-22] MEDS: PANTOPRAZOLE SODIUM 40 MG/VIAL (PROTONIX) IVP SCH ×2 (08:37→21:29)
[2018-06-22] MEDS: METOPROLOL TARTRATE 50 MG TABLET GT SCH ×2 (08:37→21:24)
[2018-06-22] MEDS: FLUDROCORTISONE ACETATE 0.1 MG TABLET( FLORINEF) GT SCH (08:37)
[2018-06-22] MEDS: PARoxetine HCL 20 MG TABLET GT SCH ×2 (08:38→21:23)
[2018-06-22] MEDS: BACLOFEN 10 MG TABLET GT SCH ×3 (08:38→21:28)
[2018-06-22] MEDS: CEFEPIME 1 GM in D5W 50 ML IV SCH ×2 (08:49→21:29)
[2018-06-22] MEDS: POTASSIUM CHLORIDE 20 MEQ/PKT PACKET GT SCH (08:49)
[2018-06-22] MEDS: HYDROCORTISONE 10 MG TABLET (CORTEF) GT SCH ×2 (08:49→21:23)
[2018-06-22] MEDS ORDERED: NON-FORMULARY MEDICATION (Dexlansoprazole (Dexilant) 30 MG) GT SCH (09:00)
[2018-06-22] MEDS ORDERED: POTASSIUM CHLORIDE 20 MEQ GT SCH (09:00)
[2018-06-22] MEDS ORDERED: POTASSIUM CHLORIDE 20 MEQ/PKT PACKET GT ONE (09:30)
[2018-06-22] MEDS: CITRIC ACID/SODIUM CITRATE 30 ML UDC GT SCH ×2 (12:03→21:27)
[2018-06-22] MEDS: TRIAMCINOLONE ACETONIDE 0.025% 15 GM CREAM.GM. TP SCH ×2 (12:04→21:30)
[2018-06-22] MEDS: hydrALAZINE HCL 20 MG/ML VIAL IVP PRN ×2 (13:38→21:42)
[2018-06-22 15:45] LABS: HEMATOCRIT 33.5 % (36-54); HEMOGLOBIN 11.3 g/dL (14.0-18.0); MEAN CORPUSCULAR HEMOGLOBIN 31 pg (27-31); MEAN CORPUSCULAR HGB CONC 34 % (32-36); MEAN CORPUSCULAR VOLUME 91 fL (79.0-98.0); PLATELET COUNT (AUTO) 617 K/uL (130-430); RED BLOOD CELL COUNT(AUTO) 3.68 MIL/uL (4.2-6.2); RED CELL DISTRIBUTION WIDTH 14.9 % (9.0-15.0); WHITE BLOOD COUNT (AUTO) 20.3 K/uL (4.8-10.8)
[2018-06-22 16:57] LABS: BAND % (MANUAL) 16 % (0-6); BASOPHILS % (MANUAL) 0 % (0-2); EOSINOPHILS % (MANUAL) 2 % (0-7); LYMPHOCYTES % (MANUAL) 23 % (20-46); MONOCYTES % (MANUAL) 5 % (0-11)
[2018-06-22 17:24] LABS: RETICULOCYTE COUNT 1.7 % (0.5-1.5)
[2018-06-22 18:12] LABS: ERYTHROCYTE SEDIMENTATION RATE 100 MM/HR (0-15)
[2018-06-22] MEDS: VANCOMYCIN HCL 750 MG in NS 250 ML IV SCH (20:10)
[2018-06-22] MEDS: NACL 0.9% 1,000 ML IV SCH (20:15)
[2018-06-22] MEDS ORDERED: CARVEDILOL 12.5 MG TABLET (COREG) GT SCH (21:00)
[2018-06-22] MEDS: LATANOPROST 2.5 ML DROPS (XALATAN) OP SCH ×2 (21:25→21:40)
[2018-06-23 01:30] VITALS: BP_SYST 122
[2018-06-23 07:05] LABS: CALCIUM 9.9 mg/dL (8.4-11.0); CREATININE 1.28 mg/dL (0.55-1.30); POTASSIUM 4.2 mmol/L (3.5-5.1)
[2018-06-23 07:13] LABS: BASOPHILS % (AUTO) 0.3 % (0.0-2.0); EOSINOPHILS # (AUTO) 0.1 K/uL (0.0-0.4); EOSINOPHILS % (AUTO) 0.9 % (0.0-4.0); HEMATOCRIT 31.6 % (36-54); HEMOGLOBIN 10.6 g/dL (14.0-18.0); LYMPHOCYTES # (AUTO) 3.1 K/uL (1.0-5.5); MEAN CORPUSCULAR HEMOGLOBIN 31 pg (27-31); MEAN CORPUSCULAR HGB CONC 33 % (32-36); MEAN CORPUSCULAR VOLUME 93 fL (79.0-98.0); MONOCYTES # (AUTO) 0.9 K/uL (0.0-1.0); MONOCYTES % (AUTO) 6.7 % (1.7-9.3); NEUTROPHILS # (AUTO) 9.4 K/uL (1.8-7.7); PLATELET COUNT (AUTO) 698 K/uL (130-430); RED BLOOD CELL COUNT(AUTO) 3.41 MIL/uL (4.2-6.2); RED CELL DISTRIBUTION WIDTH 15.7 % (9.0-15.0); WHITE BLOOD COUNT (AUTO) 13.5 K/uL (4.8-10.8)
[2018-06-23 07:31] LABS: NEUTROPHILS % (AUTO) 69.1 % (40.0-70.0)
[2018-06-23 07:53] VITALS: BP_SYST 150
[2018-06-23] MEDS: CEFEPIME 1 GM in D5W 50 ML IV SCH ×2 (09:52→21:37)
[2018-06-23] MEDS: BACLOFEN 10 MG TABLET GT SCH ×3 (09:53→21:38)
[2018-06-23] MEDS: CITRIC ACID/SODIUM CITRATE 30 ML UDC GT SCH ×2 (09:53→21:39)
[2018-06-23] MEDS: FLUDROCORTISONE ACETATE 0.1 MG TABLET( FLORINEF) GT SCH (09:53)
[2018-06-23] MEDS: VALPROIC ACID 250 MG CAPSULE (DEPAKENE) GT SCH ×3 (09:53→21:38)
[2018-06-23] MEDS: HYDROCORTISONE 10 MG TABLET (CORTEF) GT SCH ×2 (09:53→21:38)
[2018-06-23] MEDS: POTASSIUM CHLORIDE 20 MEQ/PKT PACKET GT SCH (09:53)
[2018-06-23] MEDS: PARoxetine HCL 20 MG TABLET GT SCH ×2 (09:53→21:38)
[2018-06-23] MEDS: PANTOPRAZOLE SODIUM 40 MG/VIAL (PROTONIX) IVP SCH ×2 (09:53→21:38)
[2018-06-23] MEDS: METOPROLOL TARTRATE 50 MG TABLET GT SCH ×2 (09:54→21:39)
[2018-06-23] MEDS: TRIAMCINOLONE ACETONIDE 0.025% 15 GM CREAM.GM. TP SCH ×2 (10:06→21:41)
[2018-06-23 12:40] VITALS: BP_SYST 148
[2018-06-23 20:50] VITALS: BP_SYST 147
[2018-06-23] MEDS: LATANOPROST 2.5 ML DROPS (XALATAN) OP SCH (21:00)
[2018-06-23] MEDS: VANCOMYCIN HCL 750 MG in NS 250 ML IV SCH (21:37)
[2018-06-23] MEDS: NACL 0.9% 1,000 ML IV SCH (21:40)
[2018-06-24] MEDS: hydrALAZINE HCL 20 MG/ML VIAL IVP PRN (00:46)
[2018-06-24 00:54] VITALS: BP_SYST 187
[2018-06-24 02:00] VITALS: BP_SYST 137
[2018-06-24 03:07] LABS: A/G RATIO 0.5 (0.7-1.7); ALBUMIN 1.8 g/dL (2.9-4.4); ALPHA-1-GLOBULIN 0.5 g/dL (0.0-0.4); ALPHA-2-GLOBULIN 1.1 g/dL (0.4-1.0); BETA GLOBULIN 1.1 g/dL (0.7-1.3); GAMMA GLOBULIN 1.2 g/dL (0.4-1.8); GLOBULIN, TOTAL 3.8 g/dL (2.2-3.9); M-SPIKE Not Observed g/dL (Not Observed)
[2018-06-24 05:12] LABS: HAPTOGLOBIN 430 mg/dL (34-200)
[2018-06-24] MEDS: LEVOTHYROXINE SODIUM 0.025 MG TABLET PO SCH (06:46)
[2018-06-24 07:16] LABS: BASOPHILS % (AUTO) 0.4 % (0.0-2.0); CALCIUM 9.4 mg/dL (8.4-11.0); CREATININE 1.14 mg/dL (0.55-1.30); EOSINOPHILS # (AUTO) 0.1 K/uL (0.0-0.4); HEMATOCRIT 31.4 % (36-54); HEMOGLOBIN 10.4 g/dL (14.0-18.0); LYMPHOCYTES # (AUTO) 2.5 K/uL (1.0-5.5); LYMPHOCYTES % (AUTO) 22.2 % (20.5-51.5); MEAN CORPUSCULAR HEMOGLOBIN 31 pg (27-31); MEAN CORPUSCULAR HGB CONC 33 % (32-36); MEAN CORPUSCULAR VOLUME 93 fL (79.0-98.0); MONOCYTES # (AUTO) 0.7 K/uL (0.0-1.0); MONOCYTES % (AUTO) 6.4 % (1.7-9.3); NEUTROPHILS # (AUTO) 7.9 K/uL (1.8-7.7); PLATELET COUNT (AUTO) 679 K/uL (130-430); POTASSIUM 3.9 mmol/L (3.5-5.1); RED BLOOD CELL COUNT(AUTO) 3.38 MIL/uL (4.2-6.2); RED CELL DISTRIBUTION WIDTH 14.8 % (9.0-15.0); WHITE BLOOD COUNT (AUTO) 11.2 K/uL (4.8-10.8)
[2018-06-24] MEDS: POTASSIUM CHLORIDE 20 MEQ/PKT PACKET GT SCH (08:58)
[2018-06-24] MEDS: TRIAMCINOLONE ACETONIDE 0.025% 15 GM CREAM.GM. TP SCH ×2 (08:58→21:50)
[2018-06-24] MEDS: HYDROCORTISONE 10 MG TABLET (CORTEF) GT SCH ×2 (08:59→21:50)
[2018-06-24] MEDS: VALPROIC ACID 250 MG CAPSULE (DEPAKENE) GT SCH ×3 (08:59→21:49)
[2018-06-24] MEDS: PANTOPRAZOLE SODIUM 40 MG/VIAL (PROTONIX) IVP SCH ×2 (08:59→21:47)
[2018-06-24] MEDS: BACLOFEN 10 MG TABLET GT SCH ×3 (08:59→21:49)
[2018-06-24] MEDS: PARoxetine HCL 20 MG TABLET GT SCH ×2 (08:59→21:49)
[2018-06-24] MEDS: METOPROLOL TARTRATE 50 MG TABLET GT SCH ×2 (08:59→21:49)
[2018-06-24] MEDS: FLUDROCORTISONE ACETATE 0.1 MG TABLET( FLORINEF) GT SCH (09:00)
[2018-06-24] MEDS: CITRIC ACID/SODIUM CITRATE 30 ML UDC GT SCH ×2 (09:00→21:47)
[2018-06-24] MEDS: CEFEPIME 1 GM in D5W 50 ML IV SCH ×2 (09:18→21:48)
[2018-06-24 12:29] VITALS: BP_SYST 159
[2018-06-24] MEDS: cloNIDine HCL 0.1 MG TABLET GT PRN (12:31)
[2018-06-24 15:02] LABS: FERRITIN 696 ng/mL (30-400)
[2018-06-24 16:37] VITALS: BP_SYST 143
[2018-06-24] MEDS: NACL 0.9% 1,000 ML IV SCH (18:30)
[2018-06-24 21:00] VITALS: BP_SYST 147
[2018-06-24] MEDS: LATANOPROST 2.5 ML DROPS (XALATAN) OP SCH (21:00)
[2018-06-24] MEDS: VANCOMYCIN HCL 750 MG in NS 250 ML IV SCH (21:48)
[2018-06-25] VITALS: BP_SYST 150
[2018-06-25] MEDS: LEVOTHYROXINE SODIUM 0.025 MG TABLET PO SCH (07:01)
[2018-06-25 07:50] VITALS: BP_SYST 194
[2018-06-25 07:54] LABS: CALCIUM 9.6 mg/dL (8.4-11.0); CREATININE 1.22 mg/dL (0.55-1.30); POTASSIUM 3.8 mmol/L (3.5-5.1)
[2018-06-25] MEDS: hydrALAZINE HCL 20 MG/ML VIAL IVP PRN (08:12)
[2018-06-25] MEDS: PANTOPRAZOLE SODIUM 40 MG/VIAL (PROTONIX) IVP SCH ×2 (08:13→20:52)
[2018-06-25] MEDS: CEFEPIME 1 GM in D5W 50 ML IV SCH (08:13)
[2018-06-25 08:14] LABS: BASOPHILS # (AUTO) 0.1 K/uL (0.0-0.2); BASOPHILS % (AUTO) 0.5 % (0.0-2.0); EOSINOPHILS # (AUTO) 0.2 K/uL (0.0-0.4); EOSINOPHILS % (AUTO) 1.4 % (0.0-4.0); HEMATOCRIT 30.8 % (36-54); HEMOGLOBIN 10.5 g/dL (14.0-18.0); LYMPHOCYTES # (AUTO) 2.8 K/uL (1.0-5.5); LYMPHOCYTES % (AUTO) 24.3 % (20.5-51.5); MEAN CORPUSCULAR HEMOGLOBIN 32 pg (27-31); MEAN CORPUSCULAR HGB CONC 34 % (32-36); MEAN CORPUSCULAR VOLUME 94 fL (79.0-98.0); MONOCYTES # (AUTO) 0.7 K/uL (0.0-1.0); MONOCYTES % (AUTO) 6.3 % (1.7-9.3); NEUTROPHILS # (AUTO) 7.6 K/uL (1.8-7.7); NEUTROPHILS % (AUTO) 67.5 % (40.0-70.0); RED BLOOD CELL COUNT(AUTO) 3.29 MIL/uL (4.2-6.2); RED CELL DISTRIBUTION WIDTH 14.6 % (9.0-15.0); WHITE BLOOD COUNT (AUTO) 11.4 K/uL (4.8-10.8)
[2018-06-25] MEDS: CITRIC ACID/SODIUM CITRATE 30 ML UDC GT SCH (08:21)
[2018-06-25] MEDS: POTASSIUM CHLORIDE 20 MEQ/PKT PACKET GT SCH (08:21)
[2018-06-25] MEDS: BACLOFEN 10 MG TABLET GT SCH ×3 (08:23→20:52)
[2018-06-25] MEDS: METOPROLOL TARTRATE 50 MG TABLET GT SCH ×2 (08:23→20:53)
[2018-06-25] MEDS: PARoxetine HCL 20 MG TABLET GT SCH ×2 (08:24→20:52)
[2018-06-25] MEDS: HYDROCORTISONE 10 MG TABLET (CORTEF) GT SCH ×2 (08:25→20:51)
[2018-06-25] MEDS: VALPROIC ACID 250 MG CAPSULE (DEPAKENE) GT SCH ×3 (08:25→20:52)
[2018-06-25] MEDS: FLUDROCORTISONE ACETATE 0.1 MG TABLET( FLORINEF) GT SCH (08:36)
[2018-06-25] MEDS: TRIAMCINOLONE ACETONIDE 0.025% 15 GM CREAM.GM. TP SCH ×2 (08:36→22:33)
[2018-06-25 09:45] LABS: PLATELET COUNT (AUTO) 608 K/uL (130-430)
[2018-06-25] MEDS: cloNIDine HCL 0.1 MG TABLET GT PRN (10:45)
[2018-06-25 12:17] VITALS: BP_SYST 162
[2018-06-25 16:15] VITALS: BP_SYST 138
[2018-06-25] MEDS ORDERED: CEFEPIME 1 GM in D5W 50 ML IV ONE (16:30)
[2018-06-25 17:11] VITALS: BP_SYST 138
[2018-06-25] MEDS ORDERED: LEVO25TA2 PO (18:51)
[2018-06-25 20:00] VITALS: BP_SYST 167
[2018-06-25] MEDS ORDERED: VANCOMYCIN HCL 600 MG in NS 250 ML IV SCH (20:00)
[2018-06-25] MEDS: LATANOPROST 2.5 ML DROPS (XALATAN) OP SCH (21:00)
== END 2018-06-25 23:36 | disposition home health service (06) | DRG 871 ==
LOC: SED 15:13 → SIC 17:20 → STU 06-22 18:45
PROVIDERS: ADMIT Internal Medicine; ATTEND Internal Medicine
PROC: 30233N1 Transfusion of Nonautologous Red Blood Cells into Peripheral Vein, Percutaneous Approach (ICD-10-PCS; principal; 2018-06-21)
DX: A41.9 Sepsis, unspecified organism (principal); R65.21 Severe sepsis with septic shock; E43 Unspecified severe protein-calorie malnutrition; J69.0 Pneumonitis due to inhalation of food and vomit; Z68.1 Body mass index [BMI] 19.9 or less, adult; D64.9 Anemia, unspecified; E11.9 Type 2 diabetes mellitus without complications; E78.5 Hyperlipidemia, unspecified; G40.909 Epilepsy, unspecified, not intractable, without status epilepticus; D47.3 Essential (hemorrhagic) thrombocythemia; I34.0 Nonrheumatic mitral (valve) insufficiency; I10 Essential (primary) hypertension; R62.50 Unspecified lack of expected normal physiological development in childhood; I95.9 Hypotension, unspecified; R13.10 Dysphagia, unspecified; Z85.821 Personal history of Merkel cell carcinoma; Z79.899 Other long term (current) drug therapy; Z85.9 Personal history of malignant neoplasm, unspecified; Z89.021 Acquired absence of right finger(s)
CPT/HCPCS: 36415; 71045; 80048; 80053; 80202-TC; 81000-TC; 82150-TC; 82272; 82550-TC; 82607; 82728; 82746; 82962; 83010; 83540-TC; 83550-TC; 83605; 83615-TC; 83690-TC; 84155; 84165; 84439; 84443-TC; 84484; 85007; 85025; 85027; 85044-TC; 85610-TC; 85651-TC; 85730-TC; 86710; 86886; 86900; 86901; 86920; 87040-TC; 87081; 87086; 93005; 96365; 96375; 99291; C9113; G0378; J0360; J0692; J0696; J1720; J3370; J7030; J7050; J7060; P9021

== ENCOUNTER 2018-06-26 14:20 | Emergency (ER) | payer BC, MEDICAID ==
[~2018-06-26] VITALS: Ht 149.9 cm; Wt 30.8 kg
[2018-06-26 14:20] VITALS: BP_SYST 131
[~2018-06-26 14:20] MED LIST changes: +LEVO25TA2 PO; -Nifedipine PO; -PIPE4.5F2 IV
[2018-06-26] MEDS ORDERED: NACL 0.9% 1,000 ML IV ONE (14:30)
[2018-06-26 15:08] LABS: BASOPHILS # (AUTO) 0.1 K/uL (0.0-0.2); BASOPHILS % (AUTO) 0.5 % (0.0-2.0); EOSINOPHILS # (AUTO) 0.1 K/uL (0.0-0.4); EOSINOPHILS % (AUTO) 0.8 % (0.0-4.0); HEMATOCRIT 31.8 % (36-54); HEMOGLOBIN 10.6 g/dL (14.0-18.0); LYMPHOCYTES # (AUTO) 1.7 K/uL (1.0-5.5); LYMPHOCYTES % (AUTO) 10.5 % (20.5-51.5); MEAN CORPUSCULAR HEMOGLOBIN 31 pg (27-31); MEAN CORPUSCULAR HGB CONC 33 % (32-36); MEAN CORPUSCULAR VOLUME 93 fL (79.0-98.0); MONOCYTES # (AUTO) 0.6 K/uL (0.0-1.0); MONOCYTES % (AUTO) 3.6 % (1.7-9.3); PLATELET COUNT (AUTO) 702 K/uL (130-430); RED BLOOD CELL COUNT(AUTO) 3.41 MIL/uL (4.2-6.2); RED CELL DISTRIBUTION WIDTH 14.5 % (9.0-15.0); WHITE BLOOD COUNT (AUTO) 16.5 K/uL (4.8-10.8)
[2018-06-26 15:21] LABS: PROTHROMBIN TIME 10.5 SECS (9.5-12.5)
[2018-06-26 15:30] LABS: CALCIUM 9.8 mg/dL (8.4-11.0); CREATININE 1.28 mg/dL (0.55-1.30); POTASSIUM 4.3 mmol/L (3.5-5.1)
[2018-06-26 15:31] LABS: NEUTROPHILS % (AUTO) 84.6 % (40.0-70.0)
[2018-06-26 15:35] LABS: ALBUMIN 1.9 g/dL (3.4-4.8); TOTAL BILIRUBIN 0.2 mg/dL (0.0-1.0)
[2018-06-26 17:25] LABS: BILIRUBIN,URINE NEGATIVE (NEGATIVE); CLARITY/URINE CLEAR (CLEAR); COLOR,URINE YELLOW (YELLOW); GLUCOSE,URINE NEGATIVE (NEGATIVE); KETONES,URINE NEGATIVE (NEGATIVE); LEUKOCYTE ESTERASE ,URINE NEGATIVE (NEGATIVE); NITRITE, URINE NEGATIVE (NEGATIVE); PROTEIN URINE 2+ (NEGATIVE); UROBILINOGEN,URINE 0.2 (0.2-1.0)
[2018-06-26 17:27] LABS: BLOOD, URINE TRACE (NEGATIVE)
[2018-06-26 17:36] LABS: BACTERIA,URINE RARE /HPF (None Seen); RBC,URINE 0-3 /HPF (0-3); WBC,URINE 0-3 /HPF (0-3)
[2018-06-26 19:17] VITALS: BP_SYST 131
== END 2018-06-26 18:13 | disposition home or self-care (01) ==
LOC: SED 14:20
DX: I10 Essential (primary) hypertension (principal)
CPT/HCPCS: 36415; 71045; 80053; 81000; 83605; 84484; 85025; 85610; 85730; 87040; 87086; 93005; 99284; J7030

== ENCOUNTER 2018-06-30 12:44 | Emergency (ER) | payer BC, MEDICAID ==
[~2018-06-30] VITALS: Ht 144.8 cm; Wt 44.5 kg
[2018-06-30 12:52] VITALS: BP_SYST 230
[2018-06-30 13:39] LABS: BASOPHILS % (AUTO) 0.1 % (0.0-2.0); EOSINOPHILS % (AUTO) 0.1 % (0.0-4.0); HEMATOCRIT 33.4 % (36-54); HEMOGLOBIN 10.8 g/dL (14.0-18.0); LYMPHOCYTES # (AUTO) 1.8 K/uL (1.0-5.5); LYMPHOCYTES % (AUTO) 17.2 % (20.5-51.5); MEAN CORPUSCULAR HEMOGLOBIN 30 pg (27-31); MEAN CORPUSCULAR HGB CONC 32 % (32-36); MEAN CORPUSCULAR VOLUME 92 fL (79.0-98.0); MONOCYTES # (AUTO) 0.5 K/uL (0.0-1.0); MONOCYTES % (AUTO) 4.8 % (1.7-9.3); NEUTROPHILS # (AUTO) 8.2 K/uL (1.8-7.7); NEUTROPHILS % (AUTO) 77.8 % (40.0-70.0); PLATELET COUNT (AUTO) 643 K/uL (130-430); RED BLOOD CELL COUNT(AUTO) 3.64 MIL/uL (4.2-6.2); RED CELL DISTRIBUTION WIDTH 14.3 % (9.0-15.0); WHITE BLOOD COUNT (AUTO) 10.5 K/uL (4.8-10.8)
[2018-06-30] MEDS ORDERED: cloNIDine HCL 0.1 MG TABLET PO ONE (13:45)
[2018-06-30] MEDS ORDERED: ALPRAZolam 0.25 MG TABLET PO ONE (13:45)
[2018-06-30 13:49] LABS: CALCIUM 9.4 mg/dL (8.4-11.0); CREATININE 1.21 mg/dL (0.55-1.30); POTASSIUM 3.9 mmol/L (3.5-5.1)
[2018-06-30 13:52] LABS: PROTHROMBIN TIME 9.9 SECS (9.5-12.5)
[2018-06-30 13:55] LABS: TOTAL BILIRUBIN 0.2 mg/dL (0.0-1.0)
[2018-06-30 16:40] VITALS: BP_SYST 138
== END 2018-06-30 16:40 | disposition home or self-care (01) ==
LOC: SED 12:44
DX: I10 Essential (primary) hypertension (principal); Z79.899 Other long term (current) drug therapy
CPT/HCPCS: 36415; 71045; 80053; 82550-TC; 83880; 84484; 85025; 85610-TC; 85730-TC; 93005; 99284

== ENCOUNTER 2018-11-26 15:41 | Inpatient (IN) | payer BC, MEDICAID ==
[~2018-11-26] VITALS: Ht 144.8 cm; Wt 44.9 kg
[2018-11-26 15:50] VITALS: BP_SYST 156
[2018-11-26 16:30] LABS: BASOPHILS % (AUTO) 0.5 % (0.0-2.0); EOSINOPHILS # (AUTO) 0.1 K/uL (0.0-0.4); EOSINOPHILS % (AUTO) 1.1 % (0.0-4.0); HEMATOCRIT 33.9 % (36-54); HEMOGLOBIN 11.4 g/dL (14.0-18.0); LYMPHOCYTES # (AUTO) 3.2 K/uL (1.0-5.5); LYMPHOCYTES % (AUTO) 33.7 % (20.5-51.5); MEAN CORPUSCULAR HEMOGLOBIN 32 pg (27-31); MEAN CORPUSCULAR HGB CONC 34 % (32-36); MEAN CORPUSCULAR VOLUME 96 fL (79.0-98.0); MONOCYTES # (AUTO) 0.7 K/uL (0.0-1.0); MONOCYTES % (AUTO) 7.1 % (1.7-9.3); NEUTROPHILS # (AUTO) 5.5 K/uL (1.8-7.7); NEUTROPHILS % (AUTO) 57.6 % (40.0-70.0); PLATELET COUNT (AUTO) 350 K/uL (130-430); RED BLOOD CELL COUNT(AUTO) 3.53 MIL/uL (4.2-6.2); RED CELL DISTRIBUTION WIDTH 13.6 % (9.0-15.0); WHITE BLOOD COUNT (AUTO) 9.6 K/uL (4.8-10.8)
[2018-11-26 16:39] LABS: CALCIUM 9.8 mg/dL (8.4-11.0); CREATININE 1.55 mg/dL (0.55-1.30); POTASSIUM 4.6 mmol/L (3.5-5.1)
[2018-11-26 16:44] LABS: ALBUMIN 2.6 g/dL (3.4-4.8); TOTAL BILIRUBIN 0.2 mg/dL (0.0-1.0)
[2018-11-26] MEDS ORDERED: PIPERACILLIN/TAZO 3.375 GM in NS 50 ML IV ONE (18:30)
[2018-11-26] MEDS ORDERED: INSULIN REGULAR, HUMAN 10 UNITS/0.1 ML INJ IVP ONE (18:30)
[2018-11-26] MEDS ORDERED: NACL 0.9% 1,000 ML IV ONE (18:30)
[2018-11-26] MEDS ORDERED: PIPERACILLIN/TAZOBACTAM 3.375 GM/VIAL (ZOSYN) IV ONE (18:42)
[2018-11-26] MEDS ORDERED: NEOM30OI34 TP (19:20)
[2018-11-26] MEDS ORDERED: CHOL20004 GT (19:20)
[2018-11-26] MEDS ORDERED: IPRA0.2S53 IH (19:20)
[2018-11-26] MEDS ORDERED: PARO-63 PO (19:20)
[2018-11-26] MEDS ORDERED: [UNRECOGNIZED DRUG - CODE] PO (19:20)
[2018-11-26] MEDS ORDERED: CITR15SO2 GT (19:20)
[2018-11-26] MEDS ORDERED: HYDR30OI12 TP (19:20)
[2018-11-26] MEDS ORDERED: LOT1%CR30 TP (19:20)
[2018-11-26] MEDS ORDERED: METO100T14 PO (19:20)
[2018-11-26] MEDS ORDERED: GLIM1TAB2 GT (19:20)
[2018-11-26] MEDS ORDERED: MELA3TAB GT (19:20)
[2018-11-26] MEDS ORDERED: OXYC-128 GT (19:20)
[2018-11-26] MEDS ORDERED: IBUP-2300 GT (19:20)
[2018-11-26] MEDS ORDERED: ALBU2.5V7 INH (19:20)
[2018-11-26] MEDS ORDERED: MAGN400T10 PO (19:20)
[2018-11-26] MEDS ORDERED: AMLO5TAB4 GT (19:20)
[2018-11-26] MEDS ORDERED: ALPR0.5T8 GT (19:20)
[2018-11-26] MEDS ORDERED: ZOLP5TAB2 GT (19:20)
[2018-11-26] MEDS ORDERED: LATA2.5D2 OP (19:20)
[2018-11-26] MEDS ORDERED: MINE113C2 TP (19:20)
[2018-11-26] MEDS ORDERED: DEPL250/5 GT (19:20)
[2018-11-26] MEDS ORDERED: LEVO25TA7 GT (19:20)
[2018-11-26] MEDS ORDERED: LOP600 PO (19:20)
[2018-11-26] MEDS ORDERED: TRAV2.5D OP (19:20)
[2018-11-26] MEDS ORDERED: MYCOLOG30 TP (19:20)
[2018-11-26] MEDS ORDERED: CAT.1 GT (19:20)
[2018-11-26] MEDS ORDERED: PHEDM120 GT (19:20)
[2018-11-26] MEDS ORDERED: POLY17PO4 GT (19:20)
[2018-11-26] MEDS ORDERED: LANS15CA19 GT (19:20)
[2018-11-26 21:03] VITALS: BP_SYST 175
[2018-11-26] MEDS ORDERED: CHOLECALCIFEROL (VITAMIN D3) 2,000 UNIT TABLET GT SCH (21:45)
[2018-11-26] MEDS ORDERED: POLYETHYLENE GLYCOL 3350, 17 GM/ POWD.PACK GT SCH (21:45)
[2018-11-26] MEDS ORDERED: ALPRAZolam 0.25 MG TABLET GT PRN (21:45)
[2018-11-26] MEDS ORDERED: PROMETHAZINE-DM 6.25 MG-15 MG/5 ML UDC GT SCH (21:45)
[2018-11-26] MEDS ORDERED: IPRATROPIUM BROM 0.5 MG/2.5 ML VIAL.NEB (ATROVENT) INH PRN (21:45)
[2018-11-26] MEDS ORDERED: NEOMY SULF/BACITRAC ZN/POLY 28 GM OINT..GM. TP SCH (21:45)
[2018-11-26] MEDS ORDERED: ALPRAZolam 0.25 MG TABLET PO PRN (21:45)
[2018-11-26] MEDS ORDERED: HYDROCORTISONE 1% 28.35 GM TOPICAL OINT. TP SCH (21:45)
[2018-11-26] MEDS ORDERED: CLOTRIMAZOLE 1% TOPICAL CREAM 15 GM TP SCH (21:45)
[2018-11-26] MEDS ORDERED: GEMFIBROZIL 600 MG TABLET (LOPID) PO SCH (21:45)
[2018-11-26] MEDS ORDERED: ZOLPIDEM TARTRATE 5 MG TABLET GT SCH (21:45)
[2018-11-26] MEDS ORDERED: ALBUTEROL SULFATE 0.083% 2.5 MG/3 ML VIAL.NEB INH PRN (21:45)
[2018-11-26] MEDS ORDERED: ZOLPIDEM TARTRATE 5 MG TABLET GT PRN (21:45)
[2018-11-26] MEDS ORDERED: TRAVOPROST 0.004% 2.5 ML EYE DROPS OP SCH (21:45)
[2018-11-26] MEDS ORDERED: IBUPROFEN 100 MG/5 ML UDC GT SCH (21:45)
[2018-11-26] MEDS ORDERED: OXYCODONE/ACETAMINOPHEN 5-325 TABLET GT PRN (21:45)
[2018-11-26 22:00] VITALS: BP_SYST 148
[2018-11-26] MEDS ORDERED: amLODIPine BESYLATE 5 MG TABLET GT ONE (22:15)
[2018-11-26] MEDS: cloNIDine HCL 0.1 MG TABLET GT SCH (22:38)
[2018-11-26] MEDS: amLODIPine BESYLATE 5 MG TABLET GT SCH (22:39)
[2018-11-27] MEDS ORDERED: AZITHROMYCIN 500 MG in NS 250 ML IV ONE (00:30)
[2018-11-27] MEDS ORDERED: PIPERACILLIN/TAZOBACTAM 3.375 GM/VIAL (ZOSYN) IV ONE (01:03)
[2018-11-27] MEDS ORDERED: AZITHROMYCIN 500 MG/VIAL (ZITHROMAX) IV ONE (01:03)
[2018-11-27] MEDS: PIPERACILLIN/TAZO 3.375/DEX-IS 50 ML IV SCH ×2 (01:56→06:08)
[2018-11-27 02:00] VITALS: BP_SYST 157
[2018-11-27] MEDS ORDERED: LEVOTHYROXINE SODIUM 0.025 MG TABLET PO SCH (07:00)
[2018-11-27 08:00] VITALS: BP_SYST 132
[2018-11-27] MEDS: POTASSIUM CHLORIDE 20 MEQ/PKT PACKET GT SCH (08:42)
[2018-11-27] MEDS: amLODIPine BESYLATE 5 MG TABLET GT SCH ×2 (08:43→21:00)
[2018-11-27] MEDS: METOPROLOL TARTRATE 50 MG TABLET GT SCH ×2 (08:43→20:59)
[2018-11-27] MEDS: LANSOPRAZOLE 30 MG CAPSULE.DR GT SCH (08:43)
[2018-11-27] MEDS: FLUDROCORTISONE ACETATE 0.1 MG TABLET( FLORINEF) GT SCH (08:44)
[2018-11-27] MEDS: MAGNESIUM OXIDE 400 MG TABLET PO SCH (08:44)
[2018-11-27] MEDS: LEVOTHYROXINE SODIUM 0.025 MG TABLET GT SCH (08:44)
[2018-11-27] MEDS: PARoxetine HCL 20 MG TABLET GT SCH ×2 (08:44→20:51)
[2018-11-27] MEDS: BACLOFEN 10 MG TABLET PO SCH ×3 (08:44→20:51)
[2018-11-27] MEDS: HYDROCORTISONE 10 MG TABLET (CORTEF) GT SCH ×2 (08:44→20:51)
[2018-11-27] MEDS: VALPROIC ACID ORAL SYRUP 250 MG/5 ML UDC GT SCH ×2 (08:45→20:52)
[2018-11-27] MEDS: GLIMEPIRIDE 2 MG TABLET GT SCH (08:45)
[2018-11-27] MEDS: TRIAMCIN TP SCH ×2 (08:46→21:01)
[2018-11-27] MEDS: NYSTATIN TP SCH ×2 (08:46→21:01)
[2018-11-27] MEDS: CITRIC ACID/SODIUM CITRATE 30 ML UDC GT SCH ×3 (08:51→21:28)
[2018-11-27] MEDS ORDERED: NON-FORMULARY MEDICATION (Triamcinolone Acetonide 1 APPLIC) TP SCH (09:00)
[2018-11-27] MEDS ORDERED: SODIUM CITRATE GT SCH (09:00)
[2018-11-27] MEDS ORDERED: LATANOPROST 2.5 ML DROPS (XALATAN) OP SCH (09:00)
[2018-11-27] MEDS ORDERED: PARoxetine HCL 20 MG TABLET PO SCH (09:00)
[2018-11-27] MEDS ORDERED: VALPROIC ACID 250 MG CAPSULE (DEPAKENE) GT SCH (09:00)
[2018-11-27] MEDS ORDERED: LANSOPRAZOLE 15 MG GT SCH (09:00)
[2018-11-27] MEDS ORDERED: METOPROLOL TARTRATE 50 MG TABLET GT SCH (09:00)
[2018-11-27] MEDS ORDERED: POLYETHYLENE GLYCOL 3350, 17 GM/ POWD.PACK GT PRN (10:33)
[2018-11-27] MEDS ORDERED: PROMETHAZINE-DM 6.25 MG-15 MG/5 ML UDC GT PRN (10:35)
[2018-11-27 12:00] VITALS: BP_SYST 113
[2018-11-27] MEDS: cefTRIAXone 1 GM in D5W 50 ML IV SCH (14:11)
[2018-11-27] MEDS ORDERED: HYDROcodone/ACETAMIN 5-325 MG TAB (NORCO/ VICODIN) PO PRN (15:30)
[2018-11-27] MEDS ORDERED: LORazepam 2 MG/ML VIAL IVP PRN (15:30)
[2018-11-27] MEDS ORDERED: cefTRIAXone 1 GM IVPB PREMIX 50 ML IV SCH (15:30)
[2018-11-27] MEDS ORDERED: HYDROcodone/ACETAMIN 10-325 MG TAB PO PRN (15:30)
[2018-11-27] MEDS ORDERED: ONDANSETRON HCL 4 MG/2 ML VIAL IVP PRN (15:30)
[2018-11-27] MEDS ORDERED: ACETAMINOPHEN 325 MG TABLET PO PRN (15:30)
[2018-11-27 16:01] VITALS: BP_SYST 142
[2018-11-27 16:03] LABS: C-REACTIVE PROTEIN QUANT 1.9 mg/dL (0-0.5); CALCIUM 9.2 mg/dL (8.4-11.0); CREATININE 2.01 mg/dL (0.55-1.30); POTASSIUM 5.1 mmol/L (3.5-5.1)
[2018-11-27 16:07] LABS: HEMATOCRIT 32.9 % (36-54); HEMOGLOBIN 10.8 g/dL (14.0-18.0); MEAN CORPUSCULAR HEMOGLOBIN 32 pg (27-31); MEAN CORPUSCULAR HGB CONC 33 % (32-36); MEAN CORPUSCULAR VOLUME 97 fL (79.0-98.0); PLATELET COUNT (AUTO) 312 K/uL (130-430); RED BLOOD CELL COUNT(AUTO) 3.39 MIL/uL (4.2-6.2); RED CELL DISTRIBUTION WIDTH 13.7 % (9.0-15.0); WHITE BLOOD COUNT (AUTO) 8.8 K/uL (4.8-10.8)
[2018-11-27 17:20] LABS: ERYTHROCYTE SEDIMENTATION RATE 92 MM/HR (0-15)
[2018-11-27 18:08] LABS: BAND % (MANUAL) 5 % (0-6); BASOPHILS % (MANUAL) 0 % (0-2); EOSINOPHILS % (MANUAL) 3 % (0-7); LYMPHOCYTES % (MANUAL) 27 % (20-46); MONOCYTES % (MANUAL) 3 % (0-11)
[2018-11-27] MEDS: NACL 0.9% 1,000 ML IV SCH (18:48)
[2018-11-27] MEDS ORDERED: D5W 1,000 ML IV PRN (19:35)
[2018-11-27] MEDS ORDERED: DEXTROSE 50% JECT 50 ML DISP.SYRIN IVP PRN (19:45)
[2018-11-27] MEDS ORDERED: GLUCOSE 15 GM GEL (in 37.5 GM TUBE) PO PRN (19:45)
[2018-11-27 20:00] VITALS: BP_SYST 153
[2018-11-27] MEDS: AZITHROMYCIN 500 MG in NS 250 ML IV SCH (20:50)
[2018-11-27] MEDS: metroNIDAZOLE 500 MG TABLET PO SCH (20:51)
[2018-11-27] MEDS: LATANOPROST 2.5 ML DROPS (XALATAN) OP SCH (20:51)
[2018-11-27] MEDS: MINERAL OIL/PETROLATUM,WHITE 113 GM CREAM.GM. TP SCH (21:00)
[2018-11-27] MEDS: INSULIN REGULAR, HUMAN 100 UNITS/ML, 10 ML VIAL (humuLIN R) SUBCUT PRN (21:24)
[2018-11-27] MEDS: NORMAL SALINE 5 ML DISP.SYRIN IVF SCH (21:25)
[2018-11-27] MEDS ORDERED: NORMAL SALINE 5 ML DISP.SYRIN IVF SCH (22:00)
[2018-11-28 00:38] VITALS: BP_SYST 110
[2018-11-28] MEDS: NORMAL SALINE 5 ML DISP.SYRIN IVF SCH ×3 (05:53→21:58)
[2018-11-28 06:42] LABS: BASOPHILS % (AUTO) 0.5 % (0.0-2.0); EOSINOPHILS # (AUTO) 0.3 K/uL (0.0-0.4); EOSINOPHILS % (AUTO) 3.3 % (0.0-4.0); HEMATOCRIT 32.6 % (36-54); HEMOGLOBIN 10.9 g/dL (14.0-18.0); LYMPHOCYTES # (AUTO) 3.3 K/uL (1.0-5.5); LYMPHOCYTES % (AUTO) 36.5 % (20.5-51.5); MEAN CORPUSCULAR HEMOGLOBIN 32 pg (27-31); MEAN CORPUSCULAR HGB CONC 34 % (32-36); MEAN CORPUSCULAR VOLUME 96 fL (79.0-98.0); MONOCYTES # (AUTO) 0.8 K/uL (0.0-1.0); MONOCYTES % (AUTO) 9.3 % (1.7-9.3); NEUTROPHILS # (AUTO) 4.5 K/uL (1.8-7.7); NEUTROPHILS % (AUTO) 50.4 % (40.0-70.0); PLATELET COUNT (AUTO) 295 K/uL (130-430); RED BLOOD CELL COUNT(AUTO) 3.41 MIL/uL (4.2-6.2); RED CELL DISTRIBUTION WIDTH 13.3 % (9.0-15.0)
[2018-11-28 07:12] LABS: CALCIUM 9.2 mg/dL (8.4-11.0); CREATININE 1.38 mg/dL (0.55-1.30); POTASSIUM 4.2 mmol/L (3.5-5.1)
[2018-11-28 08:00] VITALS: BP_SYST 165
[2018-11-28] MEDS: MAGNESIUM OXIDE 400 MG TABLET PO SCH (09:32)
[2018-11-28] MEDS: BACLOFEN 10 MG TABLET PO SCH ×3 (09:33→21:55)
[2018-11-28] MEDS: PARoxetine HCL 20 MG TABLET GT SCH ×2 (09:33→21:55)
[2018-11-28] MEDS: POTASSIUM CHLORIDE 20 MEQ/PKT PACKET GT SCH (09:33)
[2018-11-28] MEDS: LEVOTHYROXINE SODIUM 0.025 MG TABLET GT SCH (09:33)
[2018-11-28] MEDS: HYDROCORTISONE 10 MG TABLET (CORTEF) GT SCH ×2 (09:34→21:53)
[2018-11-28] MEDS: FLUDROCORTISONE ACETATE 0.1 MG TABLET( FLORINEF) GT SCH (09:35)
[2018-11-28] MEDS: LANSOPRAZOLE 30 MG CAPSULE.DR GT SCH (09:35)
[2018-11-28] MEDS: metroNIDAZOLE 500 MG TABLET PO SCH ×2 (09:35→21:53)
[2018-11-28] MEDS: amLODIPine BESYLATE 5 MG TABLET GT SCH ×2 (09:41→21:54)
[2018-11-28] MEDS: METOPROLOL TARTRATE 50 MG TABLET GT SCH ×2 (09:45→21:55)
[2018-11-28] MEDS: CLOTRIMAZOLE 1% TOPICAL CREAM 15 GM TP SCH (09:46)
[2018-11-28] MEDS: TRIAMCIN TP SCH ×2 (09:47→21:57)
[2018-11-28] MEDS: NYSTATIN TP SCH ×2 (09:47→21:57)
[2018-11-28] MEDS: VALPROIC ACID ORAL SYRUP 250 MG/5 ML UDC GT SCH ×2 (09:48→21:53)
[2018-11-28] MEDS: CITRIC ACID/SODIUM CITRATE 30 ML UDC GT SCH ×3 (09:52→21:59)
[2018-11-28 12:35] VITALS: BP_SYST 168
[2018-11-28] MEDS: GLIMEPIRIDE 2 MG TABLET GT SCH (13:34)
[2018-11-28] MEDS: cefTRIAXone 1 GM in D5W 50 ML IV SCH (13:34)
[2018-11-28 14:17] LABS: BILIRUBIN,URINE NEGATIVE (NEGATIVE); CLARITY/URINE CLEAR (CLEAR); COLOR,URINE YELLOW (YELLOW); GLUCOSE,URINE 2+ (NEGATIVE); KETONES,URINE NEGATIVE (NEGATIVE); LEUKOCYTE ESTERASE ,URINE NEGATIVE (NEGATIVE); NITRITE, URINE NEGATIVE (NEGATIVE); PH,URINE 7.5 (5.0-8.0); PROTEIN URINE 2+ (NEGATIVE); UROBILINOGEN,URINE 0.2 (0.2-1.0)
[2018-11-28 14:24] LABS: BLOOD, URINE TRACE (NEGATIVE)
[2018-11-28 14:43] LABS: BACTERIA,URINE FEW /HPF (None Seen); WBC,URINE 0-3 /HPF (0-3)
[2018-11-28] MEDS: NACL 0.9% 1,000 ML IV SCH (14:51)
[2018-11-28 16:35] VITALS: BP_SYST 151
[2018-11-28] MEDS: INSULIN REGULAR, HUMAN 100 UNITS/ML, 10 ML VIAL (humuLIN R) SUBCUT PRN (17:57)
[2018-11-28 18:51] LABS: CHLORIDE,URINE RANDOM 116 mmol/L (55-125); URINE SODIUM, RANDOM 147 mmol/L (40-220)
[2018-11-28 20:00] VITALS: BP_SYST 185
[2018-11-28] MEDS: MINERAL OIL/PETROLATUM,WHITE 113 GM CREAM.GM. TP SCH (21:00)
[2018-11-28] MEDS: AZITHROMYCIN 500 MG in NS 250 ML IV SCH (21:52)
[2018-11-28] MEDS: LATANOPROST 2.5 ML DROPS (XALATAN) OP SCH (21:52)
[2018-11-28] MEDS: cloNIDine HCL 0.1 MG TABLET GT SCH (21:55)
[2018-11-28 23:26] VITALS: BP_SYST 156
[2018-11-29 06:02] LABS: BASOPHILS # (AUTO) 0.1 K/uL (0.0-0.2); BASOPHILS % (AUTO) 1.2 % (0.0-2.0); EOSINOPHILS # (AUTO) 0.3 K/uL (0.0-0.4); EOSINOPHILS % (AUTO) 2.4 % (0.0-4.0); HEMATOCRIT 29.5 % (36-54); HEMOGLOBIN 10.1 g/dL (14.0-18.0); LYMPHOCYTES % (AUTO) 35.4 % (20.5-51.5); MEAN CORPUSCULAR HEMOGLOBIN 33 pg (27-31); MEAN CORPUSCULAR HGB CONC 34 % (32-36); MEAN CORPUSCULAR VOLUME 97 fL (79.0-98.0); MONOCYTES % (AUTO) 8.7 % (1.7-9.3); NEUTROPHILS # (AUTO) 5.9 K/uL (1.8-7.7); NEUTROPHILS % (AUTO) 52.3 % (40.0-70.0); PLATELET COUNT (AUTO) 318 K/uL (130-430); RED BLOOD CELL COUNT(AUTO) 3.06 MIL/uL (4.2-6.2); RED CELL DISTRIBUTION WIDTH 13.4 % (9.0-15.0); WHITE BLOOD COUNT (AUTO) 11.2 K/uL (4.8-10.8)
[2018-11-29 06:23] LABS: C-REACTIVE PROTEIN QUANT 1.1 mg/dL (0-0.5); CALCIUM 8.8 mg/dL (8.4-11.0); CREATININE 1.26 mg/dL (0.55-1.30); PHOSPHORUS 3.1 mg/dL (2.7-4.5); POTASSIUM 4.1 mmol/L (3.5-5.1)
[2018-11-29] MEDS: NORMAL SALINE 5 ML DISP.SYRIN IVF SCH (06:47)
[2018-11-29 08:13] VITALS: BP_SYST 158
[2018-11-29] MEDS: METOPROLOL TARTRATE 50 MG TABLET GT SCH (08:34)
[2018-11-29] MEDS: FLUDROCORTISONE ACETATE 0.1 MG TABLET( FLORINEF) GT SCH (08:34)
[2018-11-29] MEDS: LEVOTHYROXINE SODIUM 0.025 MG TABLET GT SCH (08:34)
[2018-11-29] MEDS: PARoxetine HCL 20 MG TABLET GT SCH (08:34)
[2018-11-29 08:35] LABS: ERYTHROCYTE SEDIMENTATION RATE 101 MM/HR (0-15)
[2018-11-29] MEDS: HYDROCORTISONE 10 MG TABLET (CORTEF) GT SCH (08:35)
[2018-11-29] MEDS: MAGNESIUM OXIDE 400 MG TABLET PO SCH (08:35)
[2018-11-29] MEDS: POTASSIUM CHLORIDE 20 MEQ/PKT PACKET GT SCH (08:35)
[2018-11-29] MEDS: amLODIPine BESYLATE 5 MG TABLET GT SCH (08:36)
[2018-11-29] MEDS: GLIMEPIRIDE 2 MG TABLET GT SCH (08:36)
[2018-11-29] MEDS: BACLOFEN 10 MG TABLET PO SCH (08:36)
[2018-11-29] MEDS: metroNIDAZOLE 500 MG TABLET PO SCH (08:36)
[2018-11-29] MEDS: VALPROIC ACID ORAL SYRUP 250 MG/5 ML UDC GT SCH (08:37)
[2018-11-29] MEDS: TRIAMCIN TP SCH (08:37)
[2018-11-29] MEDS: CLOTRIMAZOLE 1% TOPICAL CREAM 15 GM TP SCH (08:37)
[2018-11-29] MEDS: NYSTATIN TP SCH (08:37)
[2018-11-29] MEDS: CITRIC ACID/SODIUM CITRATE 30 ML UDC GT SCH (08:38)
[2018-11-29] MEDS: LANSOPRAZOLE 30 MG CAPSULE.DR GT SCH (08:38)
== END 2018-11-29 09:48 | disposition home or self-care (01) | DRG 178 ==
LOC: SED 15:41 → SMU 18:57
PROVIDERS: ADMIT Preventive Medicine Preventive Medicine/Occupational Environmental Medicine; ATTEND Preventive Medicine Preventive Medicine/Occupational Environmental Medicine
DX: J69.0 Pneumonitis due to inhalation of food and vomit (principal); E71.529 X-linked adrenoleukodystrophy, unspecified type; E87.1 Hypo-osmolality and hyponatremia; N17.9 Acute kidney failure, unspecified; I10 Essential (primary) hypertension; E11.9 Type 2 diabetes mellitus without complications; G40.909 Epilepsy, unspecified, not intractable, without status epilepticus; F79 Unspecified intellectual disabilities; E88.09 Other disorders of plasma-protein metabolism, not elsewhere classified; F81.9 Developmental disorder of scholastic skills, unspecified; Z79.899 Other long term (current) drug therapy; D64.9 Anemia, unspecified
CPT/HCPCS: 36415; 71045; 76770; 80048; 80053; 81000-TC; 82435-TC; 82550-TC; 82570-TC; 82962; 83605; 83735-TC; 83880; 84100-TC; 84302-TC; 84484; 85007; 85025; 85027; 85651-TC; 86140; 86886; 86900; 86901; 87040-TC; 93005; 93971; 94760; 96365; 96375; 99285; J0456; J0696; J1815; J2543; J7030; J7050; J7060

== ENCOUNTER 2019-05-09 08:26 | Inpatient (IN) | payer BC, MEDICAID ==
[~2019-05-09] VITALS: Ht 144.8 cm; Wt 47.3 kg
[~2019-05-09 08:26] MED LIST changes: +ALBU2.5V7 INH; +ALPR0.5T8 GT; +AMLO5TAB4 GT; +CAT.1 GT; +CHOL20004 GT; +CITR15SO2 GT; +DEPL250/5 GT; +GLIM1TAB2 GT; +HYDR30OI12 TP; +IBUP-2300 GT; +IPRA0.2S53 IH; +LANS15CA19 GT; +LEVO25TA7 GT; +LOP600 PO; +LOT1%CR30 TP; +MAGN400T10 PO; +MELA3TAB64 GT; +METO100T14 PO; +MINE113C2 TP; +MYCOLOG30 TP; +NEOM30OI34 TP; +OXYC-128 GT; +PARO-63 PO; +PHEDM120 GT; +POLY17PO4 GT; +TRAV2.5D OP; +[UNRECOGNIZED DRUG - CODE] PO
--- NOTE | 2019-05-09 08:45 | NUR ---
Placed in room 1 . Placed on radiographer cardiac catheterization, blood pressure machine and pulse oximeter. To gown for exam. Side rails up.
[2019-05-09 08:46] VITALS: BP_SYST 114
--- NOTE | 2019-05-09 08:51 | NUR ---
ER at bedside examining patient.
--- NOTE | 2019-05-09 08:52 | NUR ---
Reinaldo griffiths in ED - 05/09/19 at 1115 by SDNURGD RHETT Robledo at bedside examining patient.
[2019-05-09] MEDS ORDERED: NACL 0.9% 1,000 ML IV ONE (08:54)
--- NOTE | 2019-05-09 08:55 | NUR ---
pt bib his father. Pt was getting examined by his HH RN when it was noted that he was tachypneic and tachycardiac and also had shallow RR. Pt is currently afebrile. classroom monitor placed.
[2019-05-09] MEDS ORDERED: methylPREDNISolone SOD SUCC/PF 62.5 MG/ML VIAL IVP ONE (09:00)
[2019-05-09] MEDS ORDERED: cefTRIAXone 1 GM IVPB PREMIX 50 ML IV ONE (09:00)
[2019-05-09] MEDS ORDERED: IPRATROPIUM BROM 0.5 MG/2.5 ML VIAL.NEB (ATROVENT) INH ONE (09:00)
[2019-05-09] MEDS ORDERED: ALBUTEROL SULFATE 0.083% 2.5 MG/3 ML VIAL.NEB INH ONE (09:00)
--- NOTE | 2019-05-09 09:15 | NUR ---
#14 FR Lema catheter with use of sterile technique. Immediate return of 20 cc yellow clear urine noted. Bedside drainage bag placed below level of bladder. Urine sample collected and sent to lab. Pt tolerated procedure.
--- NOTE | 2019-05-09 09:30 | NUR ---
# 24 gauge angiocath placed to Left bicep. Use of asceptic technique. Opsite placed over site. Blood return noted. Blood for lab drawn from site. Flushed with 10 cc of normal saline. No evidence of infiltration noted. Patient tolerated well.
[2019-05-09] MEDS ORDERED: LOTRIMIN 2% TP (09:49)
[2019-05-09 09:53] LABS: BASOPHILS # (AUTO) 0.1 K/uL (0.0-0.2); BASOPHILS % (AUTO) 0.5 % (0.0-2.0); EOSINOPHILS # (AUTO) 0.3 K/uL (0.0-0.4); EOSINOPHILS % (AUTO) 2.2 % (0.0-4.0); HEMATOCRIT 47.7 % (36-54); HEMOGLOBIN 15.6 g/dL (14.0-18.0); LYMPHOCYTES # (AUTO) 2.2 K/uL (1.0-5.5); LYMPHOCYTES % (AUTO) 18.4 % (20.5-51.5); MEAN CORPUSCULAR HEMOGLOBIN 33 pg (27-31); MEAN CORPUSCULAR HGB CONC 33 % (32-36); MEAN CORPUSCULAR VOLUME 101 fL (79.0-98.0); MONOCYTES # (AUTO) 0.9 K/uL (0.0-1.0); NEUTROPHILS # (AUTO) 8.4 K/uL (1.8-7.7); NEUTROPHILS % (AUTO) 70.9 % (40.0-70.0); PLATELET COUNT (AUTO) 574 K/uL (130-430); RED BLOOD CELL COUNT(AUTO) 4.71 MIL/uL (4.2-6.2); RED CELL DISTRIBUTION WIDTH 14.8 % (9.0-15.0); WHITE BLOOD COUNT (AUTO) 11.8 K/uL (4.8-10.8)
[2019-05-09 09:53] LABS: BILIRUBIN,URINE NEGATIVE (NEGATIVE); BLOOD, URINE 2+ (NEGATIVE); CLARITY/URINE CLEAR (CLEAR); COLOR,URINE YELLOW (YELLOW); GLUCOSE,URINE 2+ (NEGATIVE); KETONES,URINE TRACE (NEGATIVE); LEUKOCYTE ESTERASE ,URINE NEGATIVE (NEGATIVE); NITRITE, URINE NEGATIVE (NEGATIVE); PH,URINE 6.5 (5.0-8.0); PROTEIN URINE 3+ (NEGATIVE); UROBILINOGEN,URINE 0.2 (0.2-1.0)
--- NOTE | 2019-05-09 10:00 | NUR ---
Pt personal belongings list checked and completed
[2019-05-09 10:06] LABS: BACTERIA,URINE FEW /HPF (None Seen); WBC,URINE 0-3 /HPF (0-3)
[2019-05-09] MEDS ORDERED: LOP600 PO (10:12)
[2019-05-09] MEDS ORDERED: LEVO175T7 GT (10:12)
[2019-05-09] MEDS ORDERED: LANS15CA14 PO (10:12)
[2019-05-09] MEDS ORDERED: IBUP-1969 PO (10:12)
[2019-05-09] MEDS ORDERED: HYDR-3607 PO (10:12)
[2019-05-09] MEDS ORDERED: DIPH-934 GT (10:12)
[2019-05-09] MEDS ORDERED: ACET-2634 PO (10:12)
[2019-05-09] MEDS ORDERED: CAT3PAT TD (10:12)
[2019-05-09] MEDS ORDERED: FLOR.1 GT (10:12)
[2019-05-09] MEDS ORDERED: ALPR0.255 GT (10:12)
[2019-05-09] MEDS ORDERED: HYDC1% TP (10:12)
[2019-05-09] MEDS ORDERED: MAGN400T10 GT (10:12)
[2019-05-09] MEDS ORDERED: CITR15SO2 GT (10:12)
[2019-05-09] MEDS ORDERED: MINE113C2 TP (10:12)
[2019-05-09] MEDS ORDERED: BACL10TA GT (10:12)
[2019-05-09] MEDS ORDERED: PARO-63 GT (10:12)
[2019-05-09] MEDS ORDERED: VITD2000 GT (10:12)
[2019-05-09] MEDS ORDERED: GLIM1TAB2 GT (10:12)
[2019-05-09] MEDS ORDERED: HYD10 GT (10:12)
[2019-05-09] MEDS ORDERED: ALBU2.5V7 INH (10:12)
[2019-05-09] MEDS ORDERED: IPRA0.2S53 IH (10:12)
[2019-05-09] MEDS ORDERED: CAT.1 PO (10:12)
[2019-05-09] MEDS ORDERED: nystatin powder TP (10:12)
--- NOTE | 2019-05-09 10:13 | NUR ---
blood cx unable to be obtained from lab. Currently waiting for blood cx to be drawn
[2019-05-09 10:20] LABS: CREATININE 2.39 mg/dL (0.55-1.30)
[2019-05-09] MEDS ORDERED: METO100T14 PO (10:28)
[2019-05-09] MEDS ORDERED: XALEYE OP (10:28)
[2019-05-09] MEDS ORDERED: PROM6.256 PO (10:28)
[2019-05-09] MEDS ORDERED: MELA3TAB64 PO (10:28)
[2019-05-09] MEDS ORDERED: ZOLP5TAB2 GT (10:28)
[2019-05-09] MEDS ORDERED: DEPAK250 PO (10:28)
[2019-05-09] MEDS ORDERED: POLY17PO4 GT (10:28)
[2019-05-09] MEDS ORDERED: TRAV2.5D OP (10:28)
[2019-05-09] MEDS ORDERED: IBUP-2300 PO (10:28)
[2019-05-09] MEDS ORDERED: NEOM30OI34 TP (10:28)
[2019-05-09] MEDS ORDERED: NEOM1PAC2 TP (10:28)
[2019-05-09 10:33] LABS: ALBUMIN 2.8 g/dL (3.4-4.8); TOTAL BILIRUBIN 0.3 mg/dL (0.0-1.0)
--- NOTE | 2019-05-09 10:34 | NUR ---
Medication reconciliation completed with information provided by pt's father. Any prior medication reconciliation on file was reviewed and corrected.
[2019-05-09 10:35] LABS: INR 1.2 (0.80-1.20)
[2019-05-09 10:35] LABS: POTASSIUM 5.2 mmol/L (3.5-5.1)
[2019-05-09 10:38] LABS: PROTHROMBIN TIME 12.4 SECS (9.5-12.5)
--- NOTE | 2019-05-09 11:02 | NUR ---
Pt currently 1st liter of NS. [place] IVPB infused prior to having blood cx drawn.
[2019-05-09] MEDS ORDERED: NACL 0.9% 3,000 ML IV ONE (11:30)
--- NOTE | 2019-05-09 11:44 | NUR ---
current BS is 71. Reported to Dr. Lockett. No orders received.
--- NOTE | 2019-05-09 11:46 | NUR ---
pt will be admitted under the care of Dr. Peterson orders received.
--- NOTE | 2019-05-09 11:51 | NUR ---
Admission Note Received patient from ER with diagnosis of pneumonia. Initial Plan of Care discussed with patient's family. Family at bedside. Safety precaution observed.
[2019-05-09 12:00] VITALS: BP_SYST 98
--- NOTE | 2019-05-09 12:07 | NUR ---
Patient will be admitted to care of Dr. Peterson. Admitted to tele unit. Will go to room 133-a. Belongings list completed. Complete and up to date summary report printed. Bedside report given to Rachell Rowe RN.
[2019-05-09] MEDS ORDERED: cloNIDine HCL 0.3 MG/24 HR PATCH.TDWK TD SCH (12:45)
[2019-05-09] MEDS ORDERED: ACETAMINOPHEN 500 MG TABLET PO PRN (12:45)
[2019-05-09] MEDS ORDERED: cloNIDine HCL 0.1 MG TABLET GT PRN (12:45)
[2019-05-09] MEDS ORDERED: ZOLPIDEM TARTRATE 5 MG TABLET GT PRN (12:45)
[2019-05-09] MEDS ORDERED: HYDROcodone/ACETAMIN 5-325 MG TAB (NORCO/ VICODIN) GT PRN (12:45)
[2019-05-09] MEDS: 0.45% NACL 1,000 ML IV SCH ×2 (13:00→15:48)
[2019-05-09] MEDS ORDERED: SODIUM POLYSTYRENE SULFONATE 15 GM/60 ML UDBTL GT ONE (13:00)
[2019-05-09 13:12] VITALS: BP_SYST 104
--- NOTE | 2019-05-09 13:48 | NUR ---
CONSULTATION PAGED/CALLED Reason for Consultation: pneumonia Person Who was Notified:MARY Consulting Physician: DR. GRIFFITH Senior Quality Assurance Analyst Specialty: ID Ordering Physician:DR RICCI
--- NOTE | 2019-05-09 13:59 | NUR ---
CONSULTATION PAGED/CALLED Reason for Consultation: PNEUMONIA Person Who was Notified:MARY Consulting Physician: Sack Maker Specialty:RENAL Ordering Physician:DR. RICCI Addendum: 05/09/19 at 1820 by Rachell Powers RN Reason for consultation: Renal failure
--- NOTE | 2019-05-09 14:00 | NUR ---
Dr. Peterson Rounds Seen and examined by , will follow-up for any new orders.
--- NOTE | 2019-05-09 14:30 | NUR ---
Dr. Flores Rounds seen and examined by MD , will follow-up for any new orders.
--- NOTE | 2019-05-09 15:00 | NUR ---
CONSULTATION DR. MARTÍNEZ HER AND MADE AWARE OF CONSULTS.
--- NOTE | 2019-05-09 15:21 | NUR ---
CONSULTATION PAGED/CALLED Reason for Consultation: pancreatitis Person Who was Notified: GARY Consulting Physician:Dr. MUNROE Sql Ssis Developer Specialty: GI Ordering Physician: DR. RICCI
[2019-05-09] MEDS: PIPERACILLIN/TAZO 2.25G/DEX-IS 50 ML IV SCH ×2 (15:49→17:46)
[2019-05-09] MEDS ORDERED: metroNIDAZOLE 250 mg/NS 50 ML IV ONE (16:00)
[2019-05-09] MEDS ORDERED: SODIUM BICARBONATE 8.4% JECT 50 MEQ/50 ML SYRINGE IVP ONE (16:00)
[2019-05-09] MEDS ORDERED: ALBUMIN HUMAN 25% 100 ML IV ONE (16:00)
--- NOTE | 2019-05-09 16:00 | NUR ---
RN ROUNDS Patient alert, awake and limited verbal response, no moaning or grimaicng noted. IVF infusing well, G-tube in place and intact, laureano catheter in place and intact, draining yellow urine to urine bag via gravity. Call light within the reach.
[2019-05-09] MEDS: CITRIC ACID/SODIUM CITRATE 30 ML UDC GT SCH ×2 (16:26→23:09)
[2019-05-09] MEDS: BACLOFEN 10 MG TABLET GT SCH ×2 (16:27→21:54)
[2019-05-09] MEDS: VALPROIC ACID ORAL SYRUP 250 MG/5 ML UDC GT SCH ×2 (16:27→21:57)
[2019-05-09 16:54] LABS: INR 1.1 (0.80-1.20); PROTHROMBIN TIME 11.3 SECS (9.5-12.5)
[2019-05-09 17:19] VITALS: BP_SYST 119; BP_SYST 157
--- NOTE | 2019-05-09 18:00 | NUR ---
Closing Notes Patient resting well, eyes closed no moaning or grimaicng noted. IVF infusing well, PICC line intact and in place. G-tube in place and intact, laureano catheter in place and intact, draining yellow urine to urine bag via gravity. Call light within the reach. Will endorse to the next shift.
--- NOTE | 2019-05-09 19:20 | NUR ---
CHANGE OF SHIFT; pt. awake, non verbal, moans. pt. caregiver at bedside. keeps taking off O2. IV infusing. will reassess later. on fall risk, bed alarm on, unable to use call light.will assess later.
[2019-05-09] MEDS: IPRATROPIUM BROM 0.5 MG/2.5 ML VIAL.NEB (ATROVENT) INH PRN (19:40)
--- NOTE | 2019-05-09 20:30 | NUR ---
NOTES: pt. mom at bedside and updated on pt. status. pt. asleep, awakened for VS. IV via left midline catheter.G tube clamped for now, will start on formula feed. cardiac pattern shows sinus tach. note some shaking on rt. arm, left arm slightly contracted and both lower extremities. laureano cath to OSD.
[2019-05-09] MEDS ORDERED: LATANOPROST 2.5 ML DROPS (XALATAN) OP SCH (21:00)
--- NOTE | 2019-05-09 21:30 | NUR ---
NOTES: due meds via g tube., flushed with water and keep patent. BS checked 92, no sliding scale coverage needed. called Dr. Peterson since GLucerna 1.5 not available , ok to give Glucerna 1.2.
[2019-05-09] MEDS: GEMFIBROZIL 600 MG TABLET (LOPID) GT SCH (21:54)
[2019-05-09] MEDS: PARoxetine HCL 20 MG TABLET GT SCH (21:55)
[2019-05-09] MEDS: ALPRAZolam 0.25 MG TABLET GT SCH (21:56)
[2019-05-09] MEDS: LATANOPROST 2.5 ML DROPS (XALATAN) OP SCH (21:58)
[2019-05-09] MEDS: ENOXAPARIN SODIUM 30 MG/0.3 ML SYRINGE SUBCUT SCH (21:59)
[2019-05-09] MEDS: EMOLLIENT COMBINATION NO.73 78 GM CREAM..G. TP SCH (22:00)
[2019-05-09] MEDS: HYDROCORTISONE 1%, 28.35 GM TOPICAL CREAM TP SCH (22:01)
[2019-05-09] MEDS: metroNIDAZOLE 250 mg/NS 50 ML IV SCH (22:31)
--- NOTE | 2019-05-09 22:35 | NUR ---
Estefanía Peterson s/desmond [place]
--- NOTE | 2019-05-09 23:00 | NUR ---
NOTES: Glucerna 1.2 @ 50 cc/hr via g tube. due IV antibiotic given. repositioned. pt. been sleeping.
[2019-05-09 23:35] VITALS: BP_SYST 153
[2019-05-10] MEDS: PIPERACILLIN/TAZO 2.25G/DEX-IS 50 ML IV SCH ×3 (00:06→11:51)
--- NOTE | 2019-05-10 00:15 | NUR ---
NOTES: pt. father here at bedside, will stay for the night. condition observed.
--- NOTE | 2019-05-10 02:31 | NUR ---
NOTES: condition unchanged, continue to monitor. pt. sleeping.
--- NOTE | 2019-05-10 04:30 | NUR ---
NOTES: condition unchanged. been sleeping.
[2019-05-10] MEDS: 0.45% NACL 1,000 ML IV SCH ×3 (04:31→22:26)
--- NOTE | 2019-05-10 04:45 | NUR ---
Estefanía Peterson s/desmond [place]
--- NOTE | 2019-05-10 05:15 | NUR ---
NOTES: pt. incontinent. terence care done. repositioned.
--- NOTE | 2019-05-10 05:30 | NUR ---
PAGED PAGED DOCTOR RADHAMES
[2019-05-10] MEDS: metroNIDAZOLE 250 mg/NS 50 ML IV SCH (05:58)
--- NOTE | 2019-05-10 06:00 | NUR ---
NOTES: Dr. Peterson called back and informed about the HR been above 130's but asymptomatic with order of cardizem per g tube. pt. dad at bedside sleeping also. called pharmacy to verify order.
[2019-05-10] MEDS: LEVOTHYROXINE SODIUM 0.025 MG TABLET GT SCH (06:52)
[2019-05-10] MEDS: DILTIAZEM HCL 60 MG TABLET PO SCH ×3 (07:01→17:24)
--- NOTE | 2019-05-10 07:30 | NUR ---
INITIAL NOTE PT RESTING IN BED, NO ACUTE DISTRESS NOTED BREATHING EVEN AND UNLABORED. IVF AND TUBE FEEDING INFUSING WELL. MENDOZA DRAINING TO GRAVITY. FATHER AT BEDSIDE. CALL LIGHT WITHIN REACH, BED IN LOW AND LOCKED POSITION WITH BED ALARM ON.
[2019-05-10] MEDS: IPRATROPIUM BROM 0.5 MG/2.5 ML VIAL.NEB (ATROVENT) INH PRN (07:40)
[2019-05-10 08:00] VITALS: BP_SYST 166
[2019-05-10 08:55] LABS: BASOPHILS # (AUTO) 0.1 K/uL (0.0-0.2); BASOPHILS % (AUTO) 0.3 % (0.0-2.0); HEMATOCRIT 35.2 % (36-54); HEMOGLOBIN 11.4 g/dL (14.0-18.0); LYMPHOCYTES # (AUTO) 1.2 K/uL (1.0-5.5); LYMPHOCYTES % (AUTO) 8.2 % (20.5-51.5); MEAN CORPUSCULAR HEMOGLOBIN 33 pg (27-31); MEAN CORPUSCULAR HGB CONC 33 % (32-36); MEAN CORPUSCULAR VOLUME 100 fL (79.0-98.0); MONOCYTES # (AUTO) 1.7 K/uL (0.0-1.0); MONOCYTES % (AUTO) 11.1 % (1.7-9.3); NEUTROPHILS % (AUTO) 80.4 % (40.0-70.0); PLATELET COUNT (AUTO) 411 K/uL (130-430); RED BLOOD CELL COUNT(AUTO) 3.52 MIL/uL (4.2-6.2); RED CELL DISTRIBUTION WIDTH 15.1 % (9.0-15.0)
[2019-05-10 09:06] LABS: CALCIUM 7.1 mg/dL (8.4-11.0); CREATININE 3.19 mg/dL (0.55-1.30)
--- NOTE | 2019-05-10 09:30 | NUR ---
MEDICATIONS MORNING MEDS ADMINISTERED VIA G-TUBE. RESIDUAL 20CC. WILL CONTINUE TO MONITOR.
[2019-05-10] MEDS: GEMFIBROZIL 600 MG TABLET (LOPID) GT SCH ×2 (09:42→22:04)
[2019-05-10] MEDS: LANSOPRAZOLE 30 MG CAPSULE.DR PO SCH (09:42)
[2019-05-10] MEDS: MAGNESIUM OXIDE 400 MG TABLET GT SCH (09:42)
[2019-05-10] MEDS: FLUDROCORTISONE ACETATE 0.1 MG TABLET( FLORINEF) GT SCH (09:42)
[2019-05-10] MEDS: HYDROCORTISONE 10 MG TABLET (CORTEF) GT SCH (09:42)
[2019-05-10] MEDS: CITRIC ACID/SODIUM CITRATE 30 ML UDC GT SCH ×3 (09:42→22:16)
[2019-05-10] MEDS: CHOLECALCIFEROL (VITAMIN D3) 2,000 UNIT TABLET GT SCH (09:42)
[2019-05-10] MEDS: BACLOFEN 10 MG TABLET GT SCH ×3 (09:42→22:04)
[2019-05-10] MEDS: DIPHENHYDRAMINE HCL 12.5 MG/5 ML UDC GT SCH (09:43)
[2019-05-10] MEDS: NYSTATIN 15 GM TOPICAL POWDER TP SCH (09:43)
[2019-05-10] MEDS: PARoxetine HCL 20 MG TABLET GT SCH ×2 (09:43→22:05)
[2019-05-10] MEDS: VALPROIC ACID ORAL SYRUP 250 MG/5 ML UDC GT SCH ×3 (09:43→22:05)
--- NOTE | 2019-05-10 10:00 | NUR ---
Nutrition Update Jacob Scale 13 noted. Pt admitted for PNA Diet: Glucerna 1.5 (Glucerna 1.2 ok) at 50ml/hr with 100ml FWF Q6H with puree diet for oral gratification BMI: 22.7 kg/m2 RD to follow per nutrition care standards.
--- NOTE | 2019-05-10 11:40 | NUR ---
DR. ALIE NORWOOD AT BEDSIDE EXAMINING PT. MD TO CONTINUE CURRENT POC.
--- NOTE | 2019-05-10 12:00 | NUR ---
STOPPED TUBE FEEDING RESIDUAL 180CC. TUBE FEEDING STOPPED WILL REASSESS.
--- NOTE | 2019-05-10 12:15 | NUR ---
DR. RADHAMES NORWOOD AT BEDSIDE EXAMINING PT. TO INCREASE FLUID RATE TO 150ML/HR. VERIFIED WITH READ BACK.
[2019-05-10 12:16] VITALS: BP_SYST 148
--- NOTE | 2019-05-10 13:00 | NUR ---
RN ROUNDS RESIDUAL REMAINS AT 160. TUBE FEED STOPPED, WILL REASSESS. PT HAS NO DIARRHEA OF VOMITING. WILL CONTINUE TO MONITOR.
[2019-05-10] MEDS: metroNIDAZOLE 500 MG TABLET GT SCH ×2 (13:14→22:04)
[2019-05-10] MEDS ORDERED: SODIUM BICARBONATE 8.4% VIAL 50 MEQ/50 ML VIAL INJ ONE (16:00)
--- NOTE | 2019-05-10 17:00 | NUR ---
TUBE FEEDING CONTINUED RESIDUAL 15CC. CONTINUED TUBE FEEDING. CATAPRES AND CARDIZEM ADMINISTERED BP 165/96 HR 129. WILL CONTINUE TO MONITOR.
[2019-05-10 17:06] VITALS: BP_SYST 149
[2019-05-10] MEDS: cloNIDine HCL 0.1 MG TABLET GT PRN ×2 (17:28→20:45)
--- NOTE | 2019-05-10 19:30 | NUR ---
CHANGE OF SHIFT; pt. sleeping when checked, arousable on painful stimulation. noted face swollen, and skin pretty tight. no acute distress. IVF infusing and g tube continuous. fall risk precautions. will reassess later. on fall risk precautions.
--- NOTE | 2019-05-10 19:44 | NUR ---
CLOSING NOTE PT RESTING IN BED, NO ACUTE DISTRESS, BREATHING EVEN AND UNLABORED. IVF INFUSING WELL. TUBE FEEDING INFUSING WELL. CALL LIGHT WITHIN REACH, BED IN LOW AND LOCKED POSITION.
--- NOTE | 2019-05-10 20:00 | NUR ---
NOTES: Dr. Peterson here and verify his order on IV rate and informed still BP high , prn q 2hrs BP meds already ordered. IVF decrease to 100 cc/hr, made aware of face swollen and urine output. MD will order IV Lasix x1.
[2019-05-10 20:30] VITALS: BP_SYST 171
--- NOTE | 2019-05-10 20:45 | NUR ---
NOTES: BP 171/94 HR 132, med (catapres) given per g tube. will recheck VS after 1 hr.
[2019-05-10] MEDS ORDERED: FUROSEMIDE 20 MG/2 ML VIAL IVP SCH (21:00)
--- NOTE | 2019-05-10 21:00 | NUR ---
NOTES; pt. incontinent of stool, terence care done, repositioned. laureano cath to OSD. checked g tube feed, only 10 cc residual.cardiac pattern on sinus tach.
[2019-05-10 22:00] VITALS: BP_SYST 146
--- NOTE | 2019-05-10 22:00 | NUR ---
NOTES: due meds given per g tube. IV Lasix x1 given earlier as ordered. repositioned. pt. fairly contracted on upper and lower extremities. VS checked BP 146/76 HR down 115. pt. sleeping.
[2019-05-10] MEDS: ALPRAZolam 0.25 MG TABLET GT SCH (22:04)
[2019-05-10] MEDS: EMOLLIENT COMBINATION NO.73 78 GM CREAM..G. TP SCH (22:06)
[2019-05-10] MEDS: HYDROCORTISONE 1%, 28.35 GM TOPICAL CREAM TP SCH (22:06)
[2019-05-10] MEDS: LATANOPROST 2.5 ML DROPS (XALATAN) OP SCH (22:07)
[2019-05-10] MEDS: ENOXAPARIN SODIUM 30 MG/0.3 ML SYRINGE SUBCUT SCH (22:27)
[2019-05-11] VITALS: BP_SYST 156
[2019-05-11] MEDS: DILTIAZEM HCL 60 MG TABLET PO SCH ×4 (00:05→17:28)
--- NOTE | 2019-05-11 00:15 | NUR ---
NOTES: due med given per g tube. IV continuous @ 100 cc/hr of !/2 NS. pt. dad here at bedside, will stay for the night.
--- NOTE | 2019-05-11 01:30 | NUR ---
NOTES: pt. checked incontinent of stool, unable to collect since it absorbs thru the pad. terence care done by NEWS LIBRARIAN. repositioned. HR @ 115.
--- NOTE | 2019-05-11 03:30 | NUR ---
NOTES: condition unchanged. pt. sleeping, repositioned. pt. dad at bedside,sleeping to keep his son company. IV and g tube feed continuous. continue to monitor.
--- NOTE | 2019-05-11 05:30 | NUR ---
NOTES: pt. incontinent of stool. terence care done. laureano cath intact. no acute distress.
--- NOTE | 2019-05-11 06:30 | NUR ---
CLOSING NOTES pt. still asleep. IVF patent. g tube held with More than 100 cc residual, due meds given per g tube. CXR done and blood drawn. for further care and assistance. pt. dad still at bedside will endorse today shift.
[2019-05-11] MEDS: LEVOTHYROXINE SODIUM 0.025 MG TABLET GT SCH (06:32)
[2019-05-11] MEDS: metroNIDAZOLE 500 MG TABLET GT SCH ×3 (06:34→22:30)
[2019-05-11] MEDS: 0.45% NACL 1,000 ML IV SCH (06:44)
[2019-05-11 07:23] LABS: BASOPHILS % (AUTO) 0.3 % (0.0-2.0); EOSINOPHILS % (AUTO) 0.1 % (0.0-4.0); HEMATOCRIT 29.6 % (36-54); LYMPHOCYTES # (AUTO) 2.2 K/uL (1.0-5.5); LYMPHOCYTES % (AUTO) 19.6 % (20.5-51.5); MEAN CORPUSCULAR HEMOGLOBIN 34 pg (27-31); MEAN CORPUSCULAR HGB CONC 34 % (32-36); MEAN CORPUSCULAR VOLUME 99 fL (79.0-98.0); MONOCYTES # (AUTO) 1.2 K/uL (0.0-1.0); MONOCYTES % (AUTO) 10.7 % (1.7-9.3); NEUTROPHILS # (AUTO) 7.9 K/uL (1.8-7.7); NEUTROPHILS % (AUTO) 69.3 % (40.0-70.0); PLATELET COUNT (AUTO) 308 K/uL (130-430); RED BLOOD CELL COUNT(AUTO) 2.99 MIL/uL (4.2-6.2); RED CELL DISTRIBUTION WIDTH 14.8 % (9.0-15.0); WHITE BLOOD COUNT (AUTO) 11.3 K/uL (4.8-10.8)
--- NOTE | 2019-05-11 07:30 | NUR ---
AM NOTES: PATIENT SLEEPING DURING ROUNDS. BEDSIDE REPORT RECEIVED FROM NIGHT NURSE DORA.FAMILY AT THE RECLINER CHAIR,SLEEPING WELL. TUBE FEEDS ON GOING. LEFT UPPER ARM MIDLINE IN PLACE. MENDOZA IN SITU. NO ACUTE DISTRESS.
[2019-05-11 07:51] LABS: ALBUMIN 2.8 g/dL (3.4-4.8); CALCIUM 7.5 mg/dL (8.4-11.0); CREATININE 2.34 mg/dL (0.55-1.30); FREE T4 (FREE THYROXINE) 0.5 ng/dl (0.8-1.5); PHOSPHORUS 3.7 mg/dL (2.7-4.5); TOTAL BILIRUBIN 0.3 mg/dL (0.0-1.0)
[2019-05-11 07:54] LABS: POTASSIUM 2.5 mmol/L (3.5-5.1)
[2019-05-11] MEDS: IPRATROPIUM BROM 0.5 MG/2.5 ML VIAL.NEB (ATROVENT) INH PRN ×2 (07:56→20:08)
[2019-05-11 08:11] VITALS: BP_SYST 137
[2019-05-11] MEDS ORDERED: POTASSIUM CHLORIDE 40 MEQ in 0.45% NS 250 ML IV ONE (08:30)
[2019-05-11] MEDS: LANSOPRAZOLE 30 MG CAPSULE.DR PO SCH (09:01)
[2019-05-11] MEDS: CHOLECALCIFEROL (VITAMIN D3) 2,000 UNIT TABLET GT SCH (09:02)
[2019-05-11] MEDS: DIPHENHYDRAMINE HCL 12.5 MG/5 ML UDC GT SCH (09:02)
[2019-05-11] MEDS: VALPROIC ACID ORAL SYRUP 250 MG/5 ML UDC GT SCH ×3 (09:02→22:50)
[2019-05-11] MEDS: BACLOFEN 10 MG TABLET GT SCH ×3 (09:03→22:53)
[2019-05-11] MEDS: HYDROCORTISONE 10 MG TABLET (CORTEF) GT SCH (09:03)
[2019-05-11] MEDS: PARoxetine HCL 20 MG TABLET GT SCH ×2 (09:03→22:27)
[2019-05-11] MEDS: FLUDROCORTISONE ACETATE 0.1 MG TABLET( FLORINEF) GT SCH (09:03)
[2019-05-11] MEDS: GEMFIBROZIL 600 MG TABLET (LOPID) GT SCH ×2 (09:03→22:00)
[2019-05-11] MEDS: CITRIC ACID/SODIUM CITRATE 30 ML UDC GT SCH ×3 (09:04→22:28)
[2019-05-11] MEDS: MAGNESIUM OXIDE 400 MG TABLET GT SCH (09:04)
[2019-05-11] MEDS: NYSTATIN 15 GM TOPICAL POWDER TP SCH (09:05)
--- NOTE | 2019-05-11 09:06 | NUR ---
MED PASS: VERY MINIMAL RESIDUALS.CRUSHED MEDS GIVEN PER G-TUBE. FLUSHED WITH WATER ORDERED.
[2019-05-11] MEDS: cefTRIAXone 1 GM in D5W 50 ML IV SCH (12:06)
--- NOTE | 2019-05-11 12:06 | NUR ---
BLOOD SUGAR: BLOOD SUGAR TAKEN,NO INSULIN COVERAGE NEEDED PER SLIDING SCALE.
--- NOTE | 2019-05-11 12:29 | NUR ---
Dietitian Recommendations *Recommend continuing Glucerna 1.2 at 50ml/hr, FWF 100ml Q6H via GT Provides: 1440 kcal, 72 gm protein and 1366ml free water daily. Meets: 80% of est calorie needs and 120% of upper end of est protein needs. *Recommend Banatrol TID for diarrhea. *Recommend Pureed CCHO Renal Low Fat diet for oral gratification. Please see Nutritional Assessment for details. CLAIR, RD
[2019-05-11 12:38] VITALS: BP_SYST 153
--- NOTE | 2019-05-11 14:38 | NUR ---
RN ROUNDS: SLEEPING DURING ROUNDS. NO DISTRESS. GRAND MOTHER AT THE BEDSIDE.
--- NOTE | 2019-05-11 16:18 | NUR ---
RN ROUNDS: PATIENT'S FATHER AT THE BEDSIDE.NO ACUTE DISTRESS.
[2019-05-11] MEDS ORDERED: POTASSIUM CHLORIDE 40 MEQ, LIDOCAINE JECT 2% PF 100 MG 75 MG in NS 250 ML IV ONE (16:45)
[2019-05-11] MEDS ORDERED: FUROSEMIDE 20 MG/2 ML VIAL IVP ONE (16:45)
[2019-05-11 17:37] VITALS: BP_SYST 148
--- NOTE | 2019-05-11 18:54 | NUR ---
END OF SHIFT: SECOND K-RIDER GIVEN ORDERED. TUBE FEEDS ON GOING. SAFETY MEASURES RENDERED. MENDOZA IN SITU. PRACTICE GUIDELINES MET THROUGH OUT THE SHIFT. NO ACUTE DISTRESS.
[2019-05-11 20:00] VITALS: BP_SYST 145
--- NOTE | 2019-05-11 20:00 | NUR ---
ASSUMED CARE. RECEIVED LETHARGIC,OPENS EYES SPONTANEOUSLY,NON=VERBAL. AFEBRILE, NOT IN ACUTE DISTRESS. NO PAIN OR DISCOMFORT NOTED. G-TUBE FEEDING GLUCERNA 1.2 RUNNING AT 50 ML/HR. HEAD OF BED ELEVATED AT LEAST 30 DEGREES AT ALL TIMES. K-RIDER INFUSING AT 65 ML/HR AND IV FLUID 1/2 NS AT 35 ML/HR FOR NOW. MENDOZA CATHETER DRAINING CLEAR YELLOW URINE. JUST FINISHED BREATHING TREATMENT. SAO2=97% ON RA. SINUS TACHYCARDIA AT 120'S ON THE MONITOR. WILL CONTINUE TO MONITOR.
--- NOTE | 2019-05-11 21:15 | NUR ---
ENDORSED CARE TO SOCO KIM.
--- NOTE | 2019-05-11 22:00 | NUR ---
PT RECIEVED AWAKE ALERT AND NONE VERBALLY . PT IS MENTALLY RETARDED . PT MEDICATED GIVEN . PT TURNED AND REPOSITIONED ,VITAL SIGN STABLE . PT TOLERATING GLUCERN AT 50CC/HR 1/2NS INFUSING AT 100CC/HR O2 SATURATION IS 97%.WILL CONTINUE TO MONITOR PT .
[2019-05-11] MEDS: ALPRAZolam 0.25 MG TABLET GT SCH (22:27)
[2019-05-11] MEDS: LATANOPROST 2.5 ML DROPS (XALATAN) OP SCH (22:30)
[2019-05-11] MEDS: ENOXAPARIN SODIUM 30 MG/0.3 ML SYRINGE SUBCUT SCH (22:34)
[2019-05-11] MEDS: HYDROCORTISONE 1%, 28.35 GM TOPICAL CREAM TP SCH (22:50)
[2019-05-11] MEDS: EMOLLIENT COMBINATION NO.73 78 GM CREAM..G. TP SCH (22:56)
[2019-05-12 01:11] VITALS: BP_SYST 140
[2019-05-12] MEDS: DILTIAZEM HCL 60 MG TABLET PO SCH ×5 (01:20→23:43)
--- NOTE | 2019-05-12 05:00 | NUR ---
PT AWAKE TOLERATING FEEDING WELL .VITAL SIGN STABLE PT ON SINUS TACHY .WILL CONTINUE TO MONITOR PT .
[2019-05-12] MEDS: metroNIDAZOLE 500 MG TABLET GT SCH ×3 (07:06→23:07)
[2019-05-12] MEDS: LEVOTHYROXINE SODIUM 0.025 MG TABLET GT SCH (07:06)
[2019-05-12 07:37] VITALS: BP_SYST 131
[2019-05-12 07:40] LABS: BASOPHILS # (AUTO) 0.1 K/uL (0.0-0.2); BASOPHILS % (AUTO) 0.8 % (0.0-2.0); EOSINOPHILS % (AUTO) 0.4 % (0.0-4.0); HEMOGLOBIN 10.5 g/dL (14.0-18.0); LYMPHOCYTES # (AUTO) 2.7 K/uL (1.0-5.5); LYMPHOCYTES % (AUTO) 24.4 % (20.5-51.5); MEAN CORPUSCULAR HEMOGLOBIN 34 pg (27-31); MEAN CORPUSCULAR HGB CONC 35 % (32-36); MEAN CORPUSCULAR VOLUME 98 fL (79.0-98.0); MONOCYTES % (AUTO) 9.2 % (1.7-9.3); NEUTROPHILS # (AUTO) 7.1 K/uL (1.8-7.7); NEUTROPHILS % (AUTO) 65.2 % (40.0-70.0); PLATELET COUNT (AUTO) 307 K/uL (130-430); RED BLOOD CELL COUNT(AUTO) 3.05 MIL/uL (4.2-6.2); RED CELL DISTRIBUTION WIDTH 14.6 % (9.0-15.0); WHITE BLOOD COUNT (AUTO) 10.9 K/uL (4.8-10.8)
[2019-05-12 08:00] VITALS: BP_SYST 145
--- NOTE | 2019-05-12 08:10 | NUR ---
Opening note patient resting in bed, a/ox1, no signs of pain, no signs of distress, assessment complete, G tube in place, no residual output at this time, midline is place, infusing well, continuing to monitor, bed in lowest position, three side rails up, bed alarm on, bed close to nursing station, fall and aspiration precautions in place.
[2019-05-12 08:16] LABS: ALBUMIN 2.6 g/dL (3.4-4.8); CALCIUM 8.3 mg/dL (8.4-11.0); CREATININE 1.79 mg/dL (0.55-1.30); PHOSPHORUS 2.5 mg/dL (2.7-4.5); POTASSIUM 3.4 mmol/L (3.5-5.1); TOTAL BILIRUBIN 0.3 mg/dL (0.0-1.0)
[2019-05-12] MEDS: IPRATROPIUM BROM 0.5 MG/2.5 ML VIAL.NEB (ATROVENT) INH PRN (08:28)
[2019-05-12] MEDS: 0.45% NACL 1,000 ML IV SCH ×4 (08:55→17:15)
[2019-05-12] MEDS: CITRIC ACID/SODIUM CITRATE 30 ML UDC GT SCH ×3 (09:00→22:45)
[2019-05-12] MEDS: GEMFIBROZIL 600 MG TABLET (LOPID) GT SCH ×2 (09:00→22:44)
[2019-05-12] MEDS: DIPHENHYDRAMINE HCL 12.5 MG/5 ML UDC GT SCH (09:00)
[2019-05-12] MEDS: PARoxetine HCL 20 MG TABLET GT SCH ×2 (09:00→22:44)
[2019-05-12] MEDS: BACLOFEN 10 MG TABLET GT SCH ×3 (09:00→22:45)
[2019-05-12] MEDS: FLUDROCORTISONE ACETATE 0.1 MG TABLET( FLORINEF) GT SCH (09:00)
[2019-05-12] MEDS: MAGNESIUM OXIDE 400 MG TABLET GT SCH (09:01)
[2019-05-12] MEDS: HYDROCORTISONE 10 MG TABLET (CORTEF) GT SCH (09:01)
[2019-05-12] MEDS: CHOLECALCIFEROL (VITAMIN D3) 2,000 UNIT TABLET GT SCH (09:01)
[2019-05-12] MEDS: LANSOPRAZOLE 30 MG CAPSULE.DR PO SCH (09:01)
[2019-05-12] MEDS: VALPROIC ACID ORAL SYRUP 250 MG/5 ML UDC GT SCH ×3 (09:01→22:45)
[2019-05-12] MEDS: NYSTATIN 15 GM TOPICAL POWDER TP SCH (09:03)
--- NOTE | 2019-05-12 09:05 | NUR ---
Medication patient resting in bed, no signs of distress, no residual output from G tube at this time, medications administered per MD orders, patient was cleaned, turned and repositioned at this time, he tolerated well, continuing to monitor, bed in lowest position, three side rails up, bed alarm on, bed close to nursing station, fall and aspiration precautions in place.
[2019-05-12] MEDS: cefTRIAXone 1 GM in D5W 50 ML IV SCH (11:16)
[2019-05-12] MEDS: INSULIN REGULAR, HUMAN 100 UNITS/ML, 10 ML VIAL (humuLIN R) SUBCUT PRN (11:21)
--- NOTE | 2019-05-12 11:32 | NUR ---
RN rounds patient resting in bed, eyes closed, breathing is even and unlabored, no signs of distress, patient's father is at bedside. Checked patient's blood glucose and insulin coverage provided per MD orders, Rocephin administered per MD orders, Midline is patent and infusing well, no s/s of infiltration, patient tolerated well. Residual output from G tube is 60ml at this time, Cardizem administered per MD orders, stopped tubefeeding for 30 minutes, will recheck residual then. Patient has no other needs at this time, bed in lowest position, three side rails up, bed alarm on, bed close to nursing station, fall, aspiration and seizureprecautions in place. Addendum: 05/12/19 at 1210 by Torrey Khanna RN G TUBE RESIDUAL CHECKED, IT IS 50ML AT THIS TIME, WILL RECHECK IN 30 MINS, TUBE FEEDING STOPPED AT THIS TIME.
[2019-05-12] MEDS ORDERED: POTASSIUM CHLORIDE 40 MEQ, LIDOCAINE JECT 2% PF 100 MG 75 MG in NS 250 ML IV ONE (11:45)
[2019-05-12] MEDS ORDERED: POTASSIUM CHLORIDE 20 MEQ/PKT PACKET GT ONE (12:30)
[2019-05-12 12:45] VITALS: BP_SYST 145
[2019-05-12] MEDS ORDERED: METOPROLOL TARTRATE 50 MG TABLET GT ONE (12:45)
--- NOTE | 2019-05-12 12:55 | NUR ---
Dr. Peterson rounds assessed patient, confirmed that Dr. Peterson wants 80MeQ of potassium replacement today, will follow up.
--- NOTE | 2019-05-12 13:09 | NUR ---
RN rounds patient resting in bed, eyes closed, breathing is even and unlabored, no signs of distress, IV Potassium hung and infusing well, residual output from G tube is 30ml at this time, administered medications and resumed feeding at this time, continuing to monitor, bed in lowest position, three side rails up, bed alarm on, bed close to nursing station, fall and aspiration precautions in place.
[2019-05-12] MEDS: SODIUM BICARBONATE 650 MG TABLET GT SCH ×2 (15:18→22:45)
--- NOTE | 2019-05-12 15:24 | NUR ---
RN rounds/medication patient resting in bed, eyes closed, breathing is even and unlabored, no signs of distress, no signs of pain, 60ml residual output from G tube at this time, administered medications per MD orders, continuing to monitor, bed in lowest position, three side rails up, bed alarm on, bed close to nursing station, fall and aspiration precautions in place.
[2019-05-12 16:36] VITALS: BP_SYST 151
--- NOTE | 2019-05-12 17:20 | NUR ---
RN rounds patient resting in bed, awake, no signs of distress, blood glucose checked, no insulin coverage per MD orders, no residual output from G tube at this time, tube feeding running, IV fluid hung and infusing well, midline intact, no s/s of infiltration, continuing to monitor the patient, bed in lowest position, three side rails up, bed alarm on, bed close to nursing station, fall and aspiration precautions in place.
--- NOTE | 2019-05-12 17:50 | NUR ---
RN rounds patient resting in bed, awake, no signs of distress, no residual output from G tube at this time, medications administered per MD orders, patient was cleaned, turned and repositioned, he tolerated well, continuing to monitor the patient, bed in lowest position, three side rails up, bed alarm on, bed close to nursing station, fall and aspiration precautions in place.
--- NOTE | 2019-05-12 18:43 | NUR ---
Closing note patient resting in bed, called RT for breathing treatment, all needs met, will endorse report to NOC shift nurse, bed in lowest position, three side rails up, bed alarm on, bed close to nursing station, fall and aspiration precautions in place.
[2019-05-12 20:00] VITALS: BP_SYST 136
--- NOTE | 2019-05-12 20:29 | NUR ---
PT RECIEVED AWAKE ALERT AND ORIENTED X3 . PT SPEAKS BENGALI ONLY . PT VITAL SIGN STABLE . BP 144/61.SKIN INTACT, .PT HAVE IV PPN AT 40CC/H R. LIPID AT 5CC/HR .NS AT50CC/HR . PT IS AMBULATORY . PT GOES TO THE BATHROOM . WITH ASSISTANCE . JACINTO WEAVER TO MONITOR .
[2019-05-12] MEDS: METOPROLOL TARTRATE 50 MG TABLET GT SCH (22:44)
[2019-05-12] MEDS: HYDROCORTISONE 1%, 28.35 GM TOPICAL CREAM TP SCH (22:45)
[2019-05-12] MEDS: LATANOPROST 2.5 ML DROPS (XALATAN) OP SCH (22:50)
[2019-05-12] MEDS: EMOLLIENT COMBINATION NO.73 78 GM CREAM..G. TP SCH (22:50)
[2019-05-12] MEDS: ENOXAPARIN SODIUM 30 MG/0.3 ML SYRINGE SUBCUT SCH (22:50)
[2019-05-12] MEDS: ALPRAZolam 0.25 MG TABLET GT SCH (22:50)
--- NOTE | 2019-05-13 | NUR ---
PT TURNED AND REPOSITIONED . VITAL SIGN STABLE . PT HAVE NO RESIDUAL PT TOLERATING FEEDING WELL .WILL CONTINUE TO MONITOR PT EVERY 2HRS .
--- NOTE | 2019-05-13 | NUR ---
PT TURNED AND REPOSITIONED .IV INFUSING WELL . PT HAVE NO RESIDUAL FROM FEEDING . WILL CONTINUE TO MONITOR PT.BLOOD SUGAR WAS 101 NO COVERAGE ,
[2019-05-13 02:20] VITALS: BP_SYST 151
--- NOTE | 2019-05-13 05:00 | NUR ---
PT HAD BM BLOOD SUGAR IS 171 . NO INSULIN COVERAGE GIVEN . PT TO BE MONITORED VERY CLOSELY..
[2019-05-13] MEDS: metroNIDAZOLE 500 MG TABLET GT SCH ×3 (06:33→22:04)
[2019-05-13] MEDS: DILTIAZEM HCL 60 MG TABLET PO SCH ×2 (06:33→11:45)
[2019-05-13] MEDS: LEVOTHYROXINE SODIUM 0.025 MG TABLET GT SCH (06:34)
[2019-05-13 07:49] VITALS: BP_SYST 170
--- NOTE | 2019-05-13 07:51 | NUR ---
opening notes, received pt in bed, pt is awake , alert, oriented x1, pt's dad at bedside. pt has no s/s pain, breathing is fast at 32 and shallow. bp elevated at 170/103. will medicate. safety precaution in place. call light in reach. will cont to monitor.
[2019-05-13 08:14] LABS: BASOPHILS # (AUTO) 0.1 K/uL (0.0-0.2); BASOPHILS % (AUTO) 1.3 % (0.0-2.0); EOSINOPHILS # (AUTO) 0.2 K/uL (0.0-0.4); EOSINOPHILS % (AUTO) 2.2 % (0.0-4.0); HEMATOCRIT 32.3 % (36-54); HEMOGLOBIN 11.2 g/dL (14.0-18.0); LYMPHOCYTES # (AUTO) 3.6 K/uL (1.0-5.5); LYMPHOCYTES % (AUTO) 33.5 % (20.5-51.5); MEAN CORPUSCULAR HEMOGLOBIN 34 pg (27-31); MEAN CORPUSCULAR HGB CONC 35 % (32-36); MEAN CORPUSCULAR VOLUME 99 fL (79.0-98.0); MONOCYTES # (AUTO) 0.9 K/uL (0.0-1.0); MONOCYTES % (AUTO) 8.4 % (1.7-9.3); NEUTROPHILS # (AUTO) 5.8 K/uL (1.8-7.7); NEUTROPHILS % (AUTO) 54.6 % (40.0-70.0); PLATELET COUNT (AUTO) 323 K/uL (130-430); RED BLOOD CELL COUNT(AUTO) 3.28 MIL/uL (4.2-6.2); RED CELL DISTRIBUTION WIDTH 14.4 % (9.0-15.0); WHITE BLOOD COUNT (AUTO) 10.7 K/uL (4.8-10.8)
[2019-05-13] MEDS: PARoxetine HCL 20 MG TABLET GT SCH ×2 (08:17→22:03)
[2019-05-13] MEDS: SODIUM BICARBONATE 650 MG TABLET GT SCH ×3 (08:17→22:02)
[2019-05-13] MEDS: GEMFIBROZIL 600 MG TABLET (LOPID) GT SCH ×2 (08:17→22:03)
[2019-05-13] MEDS: BACLOFEN 10 MG TABLET GT SCH ×3 (08:17→22:05)
[2019-05-13] MEDS: MAGNESIUM OXIDE 400 MG TABLET GT SCH (08:17)
[2019-05-13] MEDS: LANSOPRAZOLE 30 MG CAPSULE.DR PO SCH (08:18)
[2019-05-13] MEDS: DIPHENHYDRAMINE HCL 12.5 MG/5 ML UDC GT SCH (08:18)
[2019-05-13] MEDS: CHOLECALCIFEROL (VITAMIN D3) 2,000 UNIT TABLET GT SCH (08:18)
[2019-05-13] MEDS: METOPROLOL TARTRATE 50 MG TABLET GT SCH ×3 (08:19→22:05)
[2019-05-13] MEDS: cloNIDine HCL 0.1 MG TABLET GT PRN (08:19)
[2019-05-13] MEDS: FLUDROCORTISONE ACETATE 0.1 MG TABLET( FLORINEF) GT SCH (08:24)
[2019-05-13] MEDS: CITRIC ACID/SODIUM CITRATE 30 ML UDC GT SCH ×3 (08:27→22:37)
[2019-05-13] MEDS: VALPROIC ACID ORAL SYRUP 250 MG/5 ML UDC GT SCH ×3 (08:27→22:36)
[2019-05-13] MEDS: HYDROCORTISONE 10 MG TABLET (CORTEF) GT SCH (08:27)
[2019-05-13] MEDS: NYSTATIN 15 GM TOPICAL POWDER TP SCH (08:28)
--- NOTE | 2019-05-13 08:48 | NUR ---
CLONIDINE PATCH CHANGED TODAY, PT GIVEN BANANA POWDER FOR DIARRHEA.
[2019-05-13 09:15] LABS: CALCIUM 8.9 mg/dL (8.4-11.0); CREATININE 1.4 mg/dL (0.55-1.30); PHOSPHORUS 2.3 mg/dL (2.7-4.5); POTASSIUM 4.4 mmol/L (3.5-5.1)
--- NOTE | 2019-05-13 10:27 | NUR ---
pt had bm, changed by noah rose, pt turned and repositioned.
[2019-05-13] MEDS: cefTRIAXone 1 GM in D5W 50 ML IV SCH (11:45)
[2019-05-13] MEDS: 0.45% NACL 1,000 ML IV SCH (11:56)
[2019-05-13] MEDS: INSULIN REGULAR, HUMAN 100 UNITS/ML, 10 ML VIAL (humuLIN R) SUBCUT PRN ×2 (12:09→17:24)
--- NOTE | 2019-05-13 12:14 | NUR ---
bs 249, given 2 units of insulin coverage.
[2019-05-13 12:49] VITALS: BP_SYST 155
[2019-05-13] MEDS ORDERED: LANSOPRAZOLE 30 MG CAPSULE.DR GT SCH (13:27)
[2019-05-13] MEDS ORDERED: LOPERAMIDE HCL 2 MG CAPSULE GT PRN (13:30)
[2019-05-13] MEDS: DILTIAZEM HCL 60 MG TABLET GT SCH (17:14)
[2019-05-13 17:22] VITALS: BP_SYST 154
[2019-05-13 19:50] VITALS: BP_SYST 152
--- NOTE | 2019-05-13 19:50 | NUR ---
INITIAL NOTES PATIENT IS LAYING IN BED. NO S/S OF RESPIRATORY DISTRESS. PATIENT UNSUCCESSFULLY DEMONSTRATES USAGE OF CALL LIGHT AT THIS TIME. WILL FREQUENTLY MONITOR. BED IS LOCKED, ALARMED, AND AT THE LOWEST POSITION. FALL, SAFETY, ASPIRATION, AND RESPIRATORY PRECAUTIONS WILL BE PLACED THROUGHOUT THE SHIFT.
[2019-05-13] MEDS: IPRATROPIUM BROM 0.5 MG/2.5 ML VIAL.NEB (ATROVENT) INH PRN (20:38)
--- NOTE | 2019-05-13 21:50 | NUR ---
ROUNDING PATIENT FAMILY IS BY BEDSIDE. PLAN OF CARE IS DISCUSSED WITH PATIENT AND FAMILY AT THIS TIME. PATIENT IS OTHERWISE STABLE. NO S/S OF RESPIRATORY DISTRESS NOTED. CALL LIGHT IN REACH. BED IS LOCKED, ALARMED, AND AT THE LOWEST POSITION.
[2019-05-13] MEDS: ALPRAZolam 0.25 MG TABLET GT SCH (22:06)
[2019-05-13] MEDS: EMOLLIENT COMBINATION NO.73 78 GM CREAM..G. TP SCH (22:20)
[2019-05-13] MEDS: HYDROCORTISONE 1%, 28.35 GM TOPICAL CREAM TP SCH (22:22)
[2019-05-13] MEDS: LATANOPROST 2.5 ML DROPS (XALATAN) OP SCH (22:35)
[2019-05-13] MEDS: ENOXAPARIN SODIUM 30 MG/0.3 ML SYRINGE SUBCUT SCH (22:38)
--- NOTE | 2019-05-13 23:50 | NUR ---
ROUNDING PATIENT IS STABLE AT THIS TIME AND RESTING IN BED. NO S/S OF RESPIRATORY DISTRESS NOTED CALL LIGHT IN EACH. BED IS LOCKED, ALARMED, AND AT THE LOWEST POSITION. WILL CONTINUE TO MONITOR.
[2019-05-14 00:03] VITALS: BP_SYST 158
[2019-05-14] MEDS: DILTIAZEM HCL 60 MG TABLET GT SCH ×5 (00:22→23:27)
--- NOTE | 2019-05-14 01:50 | NUR ---
ROUNDING PATIENT IS STABLE AT THIS TIME AND IN BED. RESIDUAL WAS CHECKED AGAIN AT THIS TIME AND IS 100 CC. FREE WATER FLUSH WAS GIVEN AT THIS TIME. TUBE FEEDING CONTINUED PER MD ORDERS. NO S/S OF RESPIRATORY DISTRESS NOTED CALL LIGHT IN EACH. BED IS LOCKED, ALARMED, AND AT THE LOWEST POSITION. WILL CONTINUE TO MONITOR.
[2019-05-14] MEDS: metroNIDAZOLE 500 MG TABLET GT SCH (05:12)
[2019-05-14] MEDS: LEVOTHYROXINE SODIUM 0.025 MG TABLET GT SCH (05:13)
[2019-05-14] MEDS: METOPROLOL TARTRATE 50 MG TABLET GT SCH ×3 (05:16→22:08)
[2019-05-14] MEDS: cloNIDine HCL 0.1 MG TABLET GT PRN (06:59)
--- NOTE | 2019-05-14 06:59 | NUR ---
CLOSING NOTES PATIENT BLOOD PRESSURE WAS STILL HIGH AFTER METOPROLOL WAS GIVEN. PRN MEDICATION GIVEN AT THIS TIME. PATIENT TOLERATED WELL. PATIENT IS OTHERWISE STABLE. NO S/S OF RESPIRATORY DISTRESS NOTED. CALL LIGHT IN REACH. FAMILY IS BY BEDSIDE. FALL, SAFETY, ASPIRATION, RESPIRATORY PRECAUTIONS HAS BEEN PLACED THROUGHOUT THE SHIFT. WILL CONTINUE TO MONITOR UNTIL REPORT IS GIVEN TO AM NURSE.
[2019-05-14 07:28] LABS: BASOPHILS # (AUTO) 0.1 K/uL (0.0-0.2); BASOPHILS % (AUTO) 0.8 % (0.0-2.0); EOSINOPHILS # (AUTO) 0.4 K/uL (0.0-0.4); EOSINOPHILS % (AUTO) 2.9 % (0.0-4.0); HEMATOCRIT 30.4 % (36-54); HEMOGLOBIN 10.4 g/dL (14.0-18.0); LYMPHOCYTES # (AUTO) 4.7 K/uL (1.0-5.5); LYMPHOCYTES % (AUTO) 33.1 % (20.5-51.5); MEAN CORPUSCULAR HEMOGLOBIN 34 pg (27-31); MEAN CORPUSCULAR HGB CONC 34 % (32-36); MEAN CORPUSCULAR VOLUME 99 fL (79.0-98.0); MONOCYTES # (AUTO) 1.7 K/uL (0.0-1.0); MONOCYTES % (AUTO) 12.2 % (1.7-9.3); NEUTROPHILS # (AUTO) 7.2 K/uL (1.8-7.7); PLATELET COUNT (AUTO) 324 K/uL (130-430); RED BLOOD CELL COUNT(AUTO) 3.08 MIL/uL (4.2-6.2); RED CELL DISTRIBUTION WIDTH 14.6 % (9.0-15.0); WHITE BLOOD COUNT (AUTO) 14.1 K/uL (4.8-10.8)
--- NOTE | 2019-05-14 07:30 | NUR ---
opening notes, received pt in bed, pt is awake , alert, oriented x1, pt's dad at bedside. pt has no s/s pain, breathing is fast at 30 and shallow. bp elevated at 152/102. will medicate. safety precaution in place. call light in reach. will cont to monitor.
[2019-05-14 07:44] LABS: ALBUMIN 2.4 g/dL (3.4-4.8); CALCIUM 8.6 mg/dL (8.4-11.0); CREATININE 1.22 mg/dL (0.55-1.30); POTASSIUM 3.8 mmol/L (3.5-5.1); TOTAL BILIRUBIN 0.2 mg/dL (0.0-1.0)
[2019-05-14 07:54] VITALS: BP_SYST 152
--- NOTE | 2019-05-14 08:19 | NUR ---
Paged , called . RN awaiting for call back
[2019-05-14] MEDS: LANSOPRAZOLE 30 MG CAPSULE.DR GT SCH (09:12)
[2019-05-14] MEDS: HYDROCORTISONE 10 MG TABLET (CORTEF) GT SCH (09:12)
[2019-05-14] MEDS: CHOLECALCIFEROL (VITAMIN D3) 2,000 UNIT TABLET GT SCH (09:12)
[2019-05-14] MEDS: MAGNESIUM OXIDE 400 MG TABLET GT SCH (09:12)
[2019-05-14] MEDS: VALPROIC ACID ORAL SYRUP 250 MG/5 ML UDC GT SCH ×3 (09:12→22:04)
[2019-05-14] MEDS: GEMFIBROZIL 600 MG TABLET (LOPID) GT SCH ×2 (09:12→22:04)
[2019-05-14] MEDS: SODIUM BICARBONATE 650 MG TABLET GT SCH ×3 (09:12→22:08)
[2019-05-14] MEDS: CITRIC ACID/SODIUM CITRATE 30 ML UDC GT SCH ×3 (09:12→22:03)
[2019-05-14] MEDS: BACLOFEN 10 MG TABLET GT SCH ×3 (09:12→22:04)
[2019-05-14] MEDS: FLUDROCORTISONE ACETATE 0.1 MG TABLET( FLORINEF) GT SCH (09:12)
[2019-05-14] MEDS: DIPHENHYDRAMINE HCL 12.5 MG/5 ML UDC GT SCH (09:12)
[2019-05-14] MEDS: NYSTATIN 15 GM TOPICAL POWDER TP SCH (09:13)
[2019-05-14] MEDS: PARoxetine HCL 20 MG TABLET GT SCH ×2 (09:13→22:04)
[2019-05-14] MEDS: 0.45% NACL 1,000 ML IV SCH (09:14)
[2019-05-14] MEDS ORDERED: NACL 0.9% 1,000 ML IV ONE (10:00)
--- NOTE | 2019-05-14 11:02 | NUR ---
dr harvey called back and made aware of the lactic level. said its okay not to continue the iv fluids he ordered but okayed to change gtube flaggyl to ivpb. also said pt can be discharge in am but need to continue iv antibiotics for 5 more days upon dc.
[2019-05-14] MEDS: cefTRIAXone 1 GM in D5W 50 ML IV SCH (11:58)
[2019-05-14 12:00] VITALS: BP_SYST 153
[2019-05-14] MEDS: INSULIN REGULAR, HUMAN 100 UNITS/ML, 10 ML VIAL (humuLIN R) SUBCUT PRN ×3 (12:12→22:16)
[2019-05-14] MEDS: ALBUTEROL SULFATE 0.083% 2.5 MG/3 ML VIAL.NEB INH PRN (12:30)
[2019-05-14] MEDS: IPRATROPIUM BROM 0.5 MG/2.5 ML VIAL.NEB (ATROVENT) INH PRN (12:30)
--- NOTE | 2019-05-14 13:39 | NUR ---
DR RICCI HERE AND MADE AWARE OF PT'S HR AND RESP RATE ELEVATED. SAID RESP RATES IS NORMAL FOR THIS PT. NEW ORDERS GIVEN AND CARRIED OUT.
[2019-05-14 16:00] VITALS: BP_SYST 127
[2019-05-14] MEDS: metroNIDAZOLE 500 mg/NS 100 ML IV SCH ×2 (17:14→22:03)
[2019-05-14 20:00] VITALS: BP_SYST 177
--- NOTE | 2019-05-14 20:00 | NUR ---
Initial note: Report received from kalia RN. Patient is resting in bed, no acute distress on room air. Alert and oriented to name only. IV fluids infusing to YURI midline, site flushes well with NS. Tubefeeding Glucerna 1.[address] at 50 ML/HR. Lema draining yellow urine to gravity. Call light with patient. Safety, fall, seizure precautions in place. Will continue with plan of care,
--- NOTE | 2019-05-14 20:05 | NUR ---
closing notes, pt has has episodes of increased resp rate and heart rate, primary md is aware. i.d doctor made aware of the severe sepsis protocol assessment , orders given and carried out. patients father at bedside and has been updated with patients poc and status. endorsed to night nurse orlin.
--- NOTE | 2019-05-14 21:59 | NUR ---
Blood sugar: Patient's blood sugar is 223. 2 units regular insulin administered subcutaneously per sliding scale. Tubefeeding in place per MD order. Call light with patient. Will continue to monitor.
[2019-05-14] MEDS: ALPRAZolam 0.25 MG TABLET GT SCH (22:04)
[2019-05-14] MEDS: LATANOPROST 2.5 ML DROPS (XALATAN) OP SCH (22:08)
[2019-05-14] MEDS: HYDROCORTISONE 1%, 28.35 GM TOPICAL CREAM TP SCH (22:09)
[2019-05-14] MEDS: EMOLLIENT COMBINATION NO.73 78 GM CREAM..G. TP SCH (22:10)
[2019-05-14] MEDS: ENOXAPARIN SODIUM 30 MG/0.3 ML SYRINGE SUBCUT SCH (22:16)
[2019-05-15] VITALS (7 sets, daily range): BP systolic 128–168
--- NOTE | 2019-05-15 00:09 | NUR ---
Rounds: Patient is resting in bed, no acute distress. Tolerating room air. IV fluids infusing per MD order. Tubefeeding in place. Lema draining yellow urine to gravity. Call light with patient. Will continue to monitor.
--- NOTE | 2019-05-15 03:29 | NUR ---
Rounds: Patient is asleep in bed, no acute distress. Tolerating room air. IV fluids infusing per MD order. Tubefeeding in place. Lema draining yellow urine to gravity. Patient's father present at bedside. Call light with patient. Will continue to monitor.
[2019-05-15] MEDS: metroNIDAZOLE 500 mg/NS 100 ML IV SCH ×3 (06:06→21:11)
[2019-05-15] MEDS: 0.45% NACL 1,000 ML IV SCH (06:07)
[2019-05-15] MEDS: METOPROLOL TARTRATE 50 MG TABLET GT SCH ×3 (06:07→20:57)
[2019-05-15] MEDS: DILTIAZEM HCL 60 MG TABLET GT SCH ×4 (06:08→23:59)
[2019-05-15] MEDS: LEVOTHYROXINE SODIUM 0.025 MG TABLET GT SCH (06:08)
[2019-05-15] MEDS: cloNIDine HCL 0.1 MG TABLET GT PRN (06:26)
--- NOTE | 2019-05-15 06:27 | NUR ---
Blood sugar: Patient's blood sugar is 211. 2 units regular insulin administered subcutaneously per sliding scale. Tubefeeding in place per MD order. Call light with patient. Will continue to monitor.
[2019-05-15] MEDS: INSULIN REGULAR, HUMAN 100 UNITS/ML, 10 ML VIAL (humuLIN R) SUBCUT PRN ×4 (06:30→22:44)
--- NOTE | 2019-05-15 06:36 | NUR ---
Closing note: Patient is resting in bed, no acute distress on room air. Alert and oriented to name only. IV fluids infusing to YURI midline, site flushes well with NS. Tubefeeding Glucerna 1.[address] at 50 ML/HR. Lema draining yellow urine to gravity. PRN Clonidine administered for elevated BP. Call light with patient. All needs met. Hourly rounding performed throughout shift. Safety, fall, seizure precautions in place. Will endorse care to dayshift RN.
[2019-05-15 07:19] LABS: BASOPHILS # (AUTO) 0.1 K/uL (0.0-0.2); BASOPHILS % (AUTO) 0.6 % (0.0-2.0); EOSINOPHILS # (AUTO) 0.4 K/uL (0.0-0.4); EOSINOPHILS % (AUTO) 1.8 % (0.0-4.0); HEMATOCRIT 27.6 % (36-54); HEMOGLOBIN 9.7 g/dL (14.0-18.0); LYMPHOCYTES # (AUTO) 5.4 K/uL (1.0-5.5); LYMPHOCYTES % (AUTO) 27.5 % (20.5-51.5); MEAN CORPUSCULAR HEMOGLOBIN 35 pg (27-31); MEAN CORPUSCULAR HGB CONC 35 % (32-36); MEAN CORPUSCULAR VOLUME 99 fL (79.0-98.0); MONOCYTES # (AUTO) 2.8 K/uL (0.0-1.0); MONOCYTES % (AUTO) 14.1 % (1.7-9.3); NEUTROPHILS # (AUTO) 10.9 K/uL (1.8-7.7); PLATELET COUNT (AUTO) 428 K/uL (130-430); RED CELL DISTRIBUTION WIDTH 14.3 % (9.0-15.0); WHITE BLOOD COUNT (AUTO) 19.6 K/uL (4.8-10.8)
[2019-05-15] MEDS: ACETAMINOPHEN 650 MG/20.3 ML UDC GT PRN (08:18)
--- NOTE | 2019-05-15 08:18 | NUR ---
AM rounds: Patient is awake, asking for water. Dad at the bedside. Tachycardic with OI=349/min. Temp is 99.5. Medicate with tylenol 500 mg via GT, sponge bath done.
[2019-05-15 08:50] LABS: CALCIUM 8.4 mg/dL (8.4-11.0); CREATININE 1.19 mg/dL (0.55-1.30); POTASSIUM 3.9 mmol/L (3.5-5.1); TOTAL BILIRUBIN 0.1 mg/dL (0.0-1.0)
[2019-05-15] MEDS: VALPROIC ACID ORAL SYRUP 250 MG/5 ML UDC GT SCH ×3 (10:15→21:00)
[2019-05-15] MEDS: HYDROCORTISONE 10 MG TABLET (CORTEF) GT SCH (10:16)
[2019-05-15] MEDS: GEMFIBROZIL 600 MG TABLET (LOPID) GT SCH ×2 (10:17→20:57)
[2019-05-15] MEDS: LANSOPRAZOLE 30 MG CAPSULE.DR GT SCH (10:17)
[2019-05-15] MEDS: DIPHENHYDRAMINE HCL 12.5 MG/5 ML UDC GT SCH (10:17)
[2019-05-15] MEDS: SODIUM BICARBONATE 650 MG TABLET GT SCH ×3 (10:17→20:56)
[2019-05-15] MEDS: CHOLECALCIFEROL (VITAMIN D3) 2,000 UNIT TABLET GT SCH (10:17)
[2019-05-15] MEDS: PARoxetine HCL 20 MG TABLET GT SCH ×2 (10:18→20:56)
[2019-05-15] MEDS: CITRIC ACID/SODIUM CITRATE 30 ML UDC GT SCH ×3 (10:18→20:56)
[2019-05-15] MEDS: BACLOFEN 10 MG TABLET GT SCH ×3 (10:18→20:56)
[2019-05-15] MEDS: FLUDROCORTISONE ACETATE 0.1 MG TABLET( FLORINEF) GT SCH (10:18)
[2019-05-15] MEDS: MAGNESIUM OXIDE 400 MG TABLET GT SCH (10:18)
--- NOTE | 2019-05-15 11:00 | NUR ---
Rounds: Patient is calm. Afebrile.
[2019-05-15] MEDS: cefTRIAXone 1 GM in D5W 50 ML IV SCH ×2 (11:28→11:33)
[2019-05-15] MEDS: NYSTATIN 15 GM TOPICAL POWDER TP SCH (11:40)
[2019-05-15] MEDS ORDERED: LOPERAMIDE HCL 2 MG CAPSULE PO PRN (15:00)
--- NOTE | 2019-05-15 15:00 | NUR ---
MD rounds: Seen by lauro Jean Baptiste MD aware of right knee pain, XRay order noted.
[2019-05-15] MEDS ORDERED: LOPERAMIDE HCL 2 MG CAPSULE GT PRN (15:10)
--- NOTE | 2019-05-15 18:16 | NUR ---
end of shift: Needs attended. Dad is at bedside. Update on plan of care.
--- NOTE | 2019-05-15 18:17 | NUR ---
Nutrition F/U (short note d/t high patient load) RD reviewed pt's current EMR including diet Hx, physician notes, nursing notes, pertinent labs/meds/procedures, care trends, and care activity. Current Diet Order/Nutrition Support: Glucerna 1.2 at 50 ml/hr, Banatrol TID, Free Water Flush: 100 ml Q6h via GT + Pureed, CCHO, renal diet Per EMR, pt has been refusing PO diet, and seems to be tolerating TF well; no residuals noted today. TF regimen and PO diet for oral grad remain appropriate. Pt remains at high risk; F/U within 2-3 days.
--- NOTE | 2019-05-15 19:25 | NUR ---
OPENING NOTE: Received care of pt and sbar report from dayshift RN. Patient is resting in bed, no acute distress, breathing is unlabored to O2 at 2L via NC. Alert and oriented to name only. IV fluids infusing to YURI midline, site flushes well with NS. Tube feeding Glucerna 1.[address] and running at 50 ML/HR. Lema draining yellow urine to gravity. Call light with patient. Safety, fall, seizure precautions in place. Will continue with plan of care throughout shift.
[2019-05-15] MEDS: ALPRAZolam 0.25 MG TABLET GT SCH (20:57)
[2019-05-15] MEDS: LATANOPROST 2.5 ML DROPS (XALATAN) OP SCH (20:58)
[2019-05-15] MEDS: ENOXAPARIN SODIUM 30 MG/0.3 ML SYRINGE SUBCUT SCH (21:00)
[2019-05-15] MEDS: HYDROCORTISONE 1%, 28.35 GM TOPICAL CREAM TP SCH (21:19)
[2019-05-15] MEDS: EMOLLIENT COMBINATION NO.73 78 GM CREAM..G. TP SCH (21:20)
--- NOTE | 2019-05-15 21:20 | NUR ---
MEDICATION PASS scheduled medications administered as ordered. medications and potential side effects discussed, pt confused and unable to verbalize understanding. no s/s of acute distress. breathing is unlabored to O2 at 2L via NC. Safety, seizure and aspiration precautions are in place. Will monitor.
--- NOTE | 2019-05-15 22:44 | NUR ---
accucheck blood sugar of 251, 4 units of regular insulin administered per sliding scale.
[2019-05-15 23:28] LABS: BILIRUBIN,URINE NEGATIVE (NEGATIVE); BLOOD, URINE NEGATIVE (NEGATIVE); CLARITY/URINE CLEAR (CLEAR); COLOR,URINE YELLOW (YELLOW); GLUCOSE,URINE 3+ (NEGATIVE); KETONES,URINE NEGATIVE (NEGATIVE); LEUKOCYTE ESTERASE ,URINE NEGATIVE (NEGATIVE); NITRITE, URINE NEGATIVE (NEGATIVE); PH,URINE 6.5 (5.0-8.0); PROTEIN URINE 2+ (NEGATIVE); UROBILINOGEN,URINE 0.2 (0.2-1.0)
[2019-05-15 23:40] LABS: RBC,URINE 0-3 /HPF (0-3)
[2019-05-15 23:41] LABS: BACTERIA,URINE FEW /HPF (None Seen)
--- NOTE | 2019-05-15 23:59 | NUR ---
scheduled cardizem administered as ordered via gtube. gtube is patent and flushes well.
[2019-05-16] MEDS: 0.45% NACL 1,000 ML IV SCH ×2 (00:06→22:35)
[2019-05-16 01:20] VITALS: BP_SYST 154
[2019-05-16 01:30] VITALS: BP_SYST 155
--- NOTE | 2019-05-16 01:56 | NUR ---
SPOKE TO DR. RICCI REGARDING PT'S SUSTAINED ELEVATED HEART RATE. NEW ORDERS RECEIVED. WILL CARRY OUT.
[2019-05-16] MEDS: DILTIAZEM HCL 25 MG/5 ML VIAL IVP PRN ×3 (02:09→06:28)
--- NOTE | 2019-05-16 02:09 | NUR ---
PRN CARDIZEM CARDIZEM 10 MG IVP ADMINISTERED TO PT. PT HR IS AT 135. WILL MONITOR CLOSELY.
--- NOTE | 2019-05-16 04:08 | NUR ---
Cardio Consultation Reason for consultation: Elevated HR Was consult called: Yes Person who was notified: Didi Consulting physician: Dr Suarez [employer] Reverser specialty: Machine Umbrella Tipper phone number: Ordered by: Dr Peterson
--- NOTE | 2019-05-16 04:13 | NUR ---
PRN CARDIZEM CARDIZEM 10 MG IVP ADMINISTERED TO PT. PT HR IS AT 135. BP 160/100. WILL MONITOR CLOSELY.
[2019-05-16] MEDS: ACETAMINOPHEN 650 MG/20.3 ML UDC GT PRN (04:23)
--- NOTE | 2019-05-16 04:23 | NUR ---
FEVER/TYLENOL FEVER OF 100.1. MEDICATED WITH TYLENOL 500 MG VIA GTUBE. COOLING MEASURES IN PLACE. WILL MONITOR.
[2019-05-16] MEDS: LEVOTHYROXINE SODIUM 0.025 MG TABLET GT SCH (05:18)
[2019-05-16] MEDS: metroNIDAZOLE 500 mg/NS 100 ML IV SCH ×3 (05:18→21:10)
[2019-05-16] MEDS: METOPROLOL TARTRATE 50 MG TABLET GT SCH ×2 (05:22→14:26)
[2019-05-16] MEDS: DILTIAZEM HCL 90 MG TABLET GT SCH ×3 (05:22→17:00)
--- NOTE | 2019-05-16 05:22 | NUR ---
SCHEDULED MEDICATIONS ADMINISTERED ORDERED. GTUBE IS PATENT AND FLUSHES WELL. IV IS INFUSING WELL, FLAGYL IVPB HUNG AND IS INFUSING AT ORDERED RATE. NO S/S OF ADVERSE REACTION. NO S/S OF ACUTE DISTRESS. FEVER NOTED TO BE DOWN TO 99.0 DEGREES FAHRENHEIT. SAFETY, SEIZURE AND ASPIRATION PRECAUTIONS MAINTAINED. WILL MONITOR.
[2019-05-16] MEDS: INSULIN REGULAR, HUMAN 100 UNITS/ML, 10 ML VIAL (humuLIN R) SUBCUT PRN ×4 (06:06→21:41)
--- NOTE | 2019-05-16 06:06 | NUR ---
ACCUCHECK BLOOD SUGAR OF 224, 2 UNITS OF REGULAR INSULIN ADMINISTERED PER SLIDING SCALE.
--- NOTE | 2019-05-16 06:28 | NUR ---
PRN CARDIZEM CARDIZEM 10 MG IVP ADMINISTERED TO PT. PT HR IS AT 114. WILL MONITOR CLOSELY.
--- NOTE | 2019-05-16 06:35 | NUR ---
CLOSING NOTE Patient is resting in bed, no acute distress on room air. Alert and oriented to name only. IV fluids infusing to YURI midline, site flushes well with NS. Tubefeeding Glucerna 1.[address] at 50 ML/HR. Lema draining yellow urine to gravity. PRN cardizem administered for elevated HR throughout shift. Call light with patient. All needs met. Hourly rounding performed throughout shift. Safety, fall, seizure precautions in place. Will endorse care to dayshift RN.
[2019-05-16 07:28] LABS: BASOPHILS # (AUTO) 0.3 K/uL (0.0-0.2); BASOPHILS % (AUTO) 1.3 % (0.0-2.0); EOSINOPHILS # (AUTO) 0.3 K/uL (0.0-0.4); EOSINOPHILS % (AUTO) 1.8 % (0.0-4.0); HEMATOCRIT 28.1 % (36-54); HEMOGLOBIN 9.5 g/dL (14.0-18.0); LYMPHOCYTES # (AUTO) 4.5 K/uL (1.0-5.5); LYMPHOCYTES % (AUTO) 22.9 % (20.5-51.5); MEAN CORPUSCULAR HEMOGLOBIN 33 pg (27-31); MEAN CORPUSCULAR HGB CONC 34 % (32-36); MEAN CORPUSCULAR VOLUME 98 fL (79.0-98.0); MONOCYTES # (AUTO) 2.9 K/uL (0.0-1.0); MONOCYTES % (AUTO) 14.8 % (1.7-9.3); NEUTROPHILS # (AUTO) 11.5 K/uL (1.8-7.7); NEUTROPHILS % (AUTO) 59.2 % (40.0-70.0); PLATELET COUNT (AUTO) 493 K/uL (130-430); RED BLOOD CELL COUNT(AUTO) 2.86 MIL/uL (4.2-6.2); RED CELL DISTRIBUTION WIDTH 14.7 % (9.0-15.0); WHITE BLOOD COUNT (AUTO) 19.4 K/uL (4.8-10.8)
--- NOTE | 2019-05-16 07:30 | NUR ---
AM ROUNDS: PATIENT AWAKE DURING ROUNDS. NON VERBAL. RECEIVED REPORT FROM DENISA LEIVNE NURSE.TUBE FEEDS ON GOING AT 50CC/H.LEFT UPPER ARM MIDLINE,DRESSING CLEAN AND DRY. CALL LIGHT WITH IN REACH. BED LOCKED AT LOWEST POSITION.NO ACUTE DISTRESS. FATHER AT THE RECLINER CHAIR SLEEPING.CONTINUE TO MONITOR.
[2019-05-16 07:48] VITALS: BP_SYST 109
[2019-05-16] MEDS: FLUDROCORTISONE ACETATE 0.1 MG TABLET( FLORINEF) GT SCH (08:53)
[2019-05-16] MEDS: HYDROCORTISONE 10 MG TABLET (CORTEF) GT SCH (08:53)
[2019-05-16] MEDS: CITRIC ACID/SODIUM CITRATE 30 ML UDC GT SCH ×3 (08:53→21:08)
[2019-05-16] MEDS: DIPHENHYDRAMINE HCL 12.5 MG/5 ML UDC GT SCH (08:53)
[2019-05-16] MEDS: LANSOPRAZOLE 30 MG CAPSULE.DR GT SCH (08:53)
[2019-05-16] MEDS: BACLOFEN 10 MG TABLET GT SCH ×3 (08:54→21:08)
[2019-05-16] MEDS: SODIUM BICARBONATE 650 MG TABLET GT SCH ×3 (08:54→21:29)
[2019-05-16] MEDS: CHOLECALCIFEROL (VITAMIN D3) 2,000 UNIT TABLET GT SCH (08:54)
[2019-05-16] MEDS: PARoxetine HCL 20 MG TABLET GT SCH ×2 (08:54→21:28)
[2019-05-16] MEDS: GEMFIBROZIL 600 MG TABLET (LOPID) GT SCH ×2 (08:54→22:35)
[2019-05-16] MEDS: VALPROIC ACID ORAL SYRUP 250 MG/5 ML UDC GT SCH ×3 (08:55→21:10)
[2019-05-16 08:56] LABS: CREATININE 1.38 mg/dL (0.55-1.30); POTASSIUM 3.6 mmol/L (3.5-5.1); TOTAL BILIRUBIN 0.3 mg/dL (0.0-1.0)
[2019-05-16] MEDS: NYSTATIN 15 GM TOPICAL POWDER TP SCH (08:56)
[2019-05-16 08:57] LABS: ALBUMIN 1.7 g/dL (3.4-4.8)
--- NOTE | 2019-05-16 09:00 | NUR ---
Meds/g-tube: No residuals prior to giving meds.Crushed meds given per g-tube.Flushed with water as ordered.No problem.
--- NOTE | 2019-05-16 10:45 | NUR ---
DC Planning: s/w pt's father/Nina Bassett (same name with pt's) regarding transfer to [facility] for continue disease management. Father does not want pt to be moved, but be discharged to home from this hospital. The pt has [facility] 12 hours per day and HH services with [facility]. Father stated pt has full support and able to manage care at home. I informed father that dr. Peterson ordered the [facility] evaluation and to get authorization from [employer] insurance which needed to be process. The final decision yet to be determined. SUE will contact [employer] on Saturday during business hours M- 8-5pm, closing on weekend for [facility] authorization. >> SUE faxed [facility] inquiry to [place] fax # [phone], tel [phone]. [place] made aware of the father's preference as well.
--- NOTE | 2019-05-16 11:24 | NUR ---
Blood sugar: Blood sugar taken,with insulin coverage given per sliding scale.No problem.
[2019-05-16] MEDS: cefTRIAXone 1 GM in D5W 50 ML IV SCH (11:27)
[2019-05-16 12:40] VITALS: BP_SYST 126
--- NOTE | 2019-05-16 13:10 | NUR ---
Rn Rounds: Patient resting during rounds. Awake,non verbal. Tube feeds on going.Stable.
--- NOTE | 2019-05-16 15:00 | NUR ---
Meds/g-tube: With minimum residuals noted.Due crushed meds given as ordered. Flushed with water . No problem.
[2019-05-16 16:51] VITALS: BP_SYST 133
--- NOTE | 2019-05-16 17:00 | NUR ---
BLOOD SUGAR: BLOOD AQNWE=469HC/DL,HUMULIN R 6 UNITS SUBQ GIVEN PER SLIDING SCALE. NO ADVERSE REACTIONS.
[2019-05-16] MEDS: LOPERAMIDE HCL 2 MG/10 ML UDC GT SCH ×2 (17:45→21:00)
--- NOTE | 2019-05-16 18:29 | NUR ---
END OF SHIFT: PATIENT LYING ON THE BED,RESTING COMFORTABLY. O2 2L/NC,GOOD SATURATION.YURI MID LINE IV FLUIDS RUNNING WELL. TUBE FEEDS ON GOING. PRACTICE GUIDELINES MET THROUGH OUT THE SHIFT. CONDITION GUARDED.
--- NOTE | 2019-05-16 19:40 | NUR ---
ROUNDS PATIENT RESTING COMFORTABLY IN BED, NOT IN DISTRESS, VITALS STABLE. NO SIGNS OF ANY PAIN AND DISCOMFORT NOTED. ASSESSMENT DONE AND DOCUEMNTED. SEE FLOWSHEET. NEEDS ATTENDED TO. WILL CONTINUE TO MONITOR.
[2019-05-16] MEDS: ALPRAZolam 0.25 MG TABLET GT SCH (21:08)
[2019-05-16] MEDS: LATANOPROST 2.5 ML DROPS (XALATAN) OP SCH (21:09)
[2019-05-16] MEDS: EMOLLIENT COMBINATION NO.73 78 GM CREAM..G. TP SCH (21:12)
[2019-05-16] MEDS: HYDROCORTISONE 1%, 28.35 GM TOPICAL CREAM TP SCH (21:13)
--- NOTE | 2019-05-16 21:14 | NUR ---
MEDICATION DUE MEDICATIONS GIVEN SCHEDULED, TOLERATED WELL. WILL CONTINUE TO MONITOR.
[2019-05-16] MEDS: ENOXAPARIN SODIUM 30 MG/0.3 ML SYRINGE SUBCUT SCH (21:15)
[2019-05-16] MEDS: IPRATROPIUM BROM 0.5 MG/2.5 ML VIAL.NEB (ATROVENT) INH PRN (22:50)
[2019-05-16] MEDS: ALBUTEROL SULFATE 0.083% 2.5 MG/3 ML VIAL.NEB INH PRN (22:50)
--- NOTE | 2019-05-17 00:12 | NUR ---
PATIENT RESTING: Patient resting quietly. No acute distress noted. Vital signs within normal range.
[2019-05-17] MEDS: DILTIAZEM HCL 90 MG TABLET GT SCH ×5 (00:15→23:33)
[2019-05-17 00:16] VITALS: BP_SYST 131
[2019-05-17] MEDS: ACETAMINOPHEN 650 MG/20.3 ML UDC GT PRN ×3 (00:16→22:11)
--- NOTE | 2019-05-17 04:13 | NUR ---
PATIENT RESTING: Patient resting quietly. No acute distress noted. Vital signs within normal range.
[2019-05-17] MEDS: LEVOTHYROXINE SODIUM 0.025 MG TABLET GT SCH (06:20)
[2019-05-17] MEDS: metroNIDAZOLE 500 mg/NS 100 ML IV SCH ×3 (06:20→21:46)
[2019-05-17] MEDS: INSULIN REGULAR, HUMAN 100 UNITS/ML, 10 ML VIAL (humuLIN R) SUBCUT PRN ×4 (06:21→21:44)
--- NOTE | 2019-05-17 06:50 | NUR ---
CLOSING NOTES PATIENT ASLEEP, NO SIGNS OF ANY PAIN AND DISCOMFORT NOTED. ALL NEEDS ATTENDED TO. SAFETY MEASURES MAINTAINED. WILL ENDORSE TO INCOMING SHIFT NURSE.
--- NOTE | 2019-05-17 07:28 | NUR ---
AM ROUNDS: UPDATES GIVEN BY NIGHT NURSE KAMILLA. TUBE FEEDS ON GOING. MIDLINE DRESSING CLEAN AND DRY.IVF RUNNING WELL. MENDOZA IN PLACE. BED LOCKED AT LOWEST POSITION. PATIENT'S FATHER SLEEPING AT THE RECLINER CHAIR. NO DISTRESS.
[2019-05-17 07:45] LABS: HEMATOCRIT 25.5 % (36-54); HEMOGLOBIN 8.6 g/dL (14.0-18.0); MEAN CORPUSCULAR HEMOGLOBIN 34 pg (27-31); MEAN CORPUSCULAR HGB CONC 34 % (32-36); MEAN CORPUSCULAR VOLUME 100 fL (79.0-98.0); PLATELET COUNT (AUTO) 577 K/uL (130-430); RED BLOOD CELL COUNT(AUTO) 2.55 MIL/uL (4.2-6.2); RED CELL DISTRIBUTION WIDTH 15.2 % (9.0-15.0); WHITE BLOOD COUNT (AUTO) 17.6 K/uL (4.8-10.8)
[2019-05-17 08:18] VITALS: BP_SYST 154
[2019-05-17 08:20] LABS: ALBUMIN 1.6 g/dL (3.4-4.8); CALCIUM 8.3 mg/dL (8.4-11.0); CREATININE 1.67 mg/dL (0.55-1.30); POTASSIUM 3.3 mmol/L (3.5-5.1); TOTAL BILIRUBIN 0.2 mg/dL (0.0-1.0)
[2019-05-17 08:48] LABS: BAND % (MANUAL) 5 % (0-6); BASOPHILS % (MANUAL) 0 % (0-2); EOSINOPHILS % (MANUAL) 0 % (0-7); LYMPHOCYTES % (MANUAL) 15 % (20-46); METAMYELOCYTES % 5 % (0-0); MONOCYTES % (MANUAL) 12 % (0-11)
[2019-05-17] MEDS: SODIUM BICARBONATE 650 MG TABLET GT SCH ×3 (08:52→21:40)
[2019-05-17] MEDS: PARoxetine HCL 20 MG TABLET GT SCH ×2 (08:52→21:38)
[2019-05-17] MEDS: 0.45% NACL 1,000 ML IV SCH ×2 (08:52→21:43)
[2019-05-17] MEDS: HYDROCORTISONE 10 MG TABLET (CORTEF) GT SCH (08:54)
[2019-05-17] MEDS: CHOLECALCIFEROL (VITAMIN D3) 2,000 UNIT TABLET GT SCH (08:54)
[2019-05-17] MEDS: METOPROLOL TARTRATE 50 MG TABLET GT SCH ×2 (08:54→21:36)
[2019-05-17] MEDS: LOPERAMIDE HCL 2 MG CAPSULE GT SCH ×3 (08:54→21:35)
[2019-05-17] MEDS: BACLOFEN 10 MG TABLET GT SCH ×3 (08:54→21:39)
[2019-05-17] MEDS: LANSOPRAZOLE 30 MG CAPSULE.DR GT SCH (08:54)
[2019-05-17] MEDS: FLUDROCORTISONE ACETATE 0.1 MG TABLET( FLORINEF) GT SCH (08:54)
[2019-05-17] MEDS: GEMFIBROZIL 600 MG TABLET (LOPID) GT SCH ×2 (08:54→21:39)
[2019-05-17] MEDS: VALPROIC ACID ORAL SYRUP 250 MG/5 ML UDC GT SCH ×3 (08:55→21:40)
[2019-05-17] MEDS: CITRIC ACID/SODIUM CITRATE 30 ML UDC GT SCH ×3 (08:55→21:39)
[2019-05-17] MEDS: DIPHENHYDRAMINE HCL 12.5 MG/5 ML UDC GT SCH (08:55)
[2019-05-17] MEDS: NYSTATIN 15 GM TOPICAL POWDER TP SCH (08:57)
--- NOTE | 2019-05-17 09:00 | NUR ---
MEDS/G-TUBE: WITH LARGE RESIDUALS PRIOR TO GIVING MEDS.CRUSHED MEDS GIVEN PER G-TUBE.WITH NO PROBLEM.HOLD TUBE FEED X 1 HOUR.WILL RECHECKED RESIDUALS IN AN HOUR ORDERED.
--- NOTE | 2019-05-17 09:25 | NUR ---
MIDLINE DRESSING CHANGE: CLEANSE SITE WITH POVIDINE SWAB,PLACED NEW DRESSING AND COVERED WITH LARGE OPSITE. PRACTICE DRESSING CHANGE ASEPTICALLY.
--- NOTE | 2019-05-17 11:15 | NUR ---
BLOOD SUGAR: BLOOD SUGAR TAKEN,WITH INSULIN COVERAGE GIVEN PER SLIDING SCALE. NO PROBLEM.
[2019-05-17] MEDS: cefTRIAXone 1 GM in D5W 50 ML IV SCH (11:26)
--- NOTE | 2019-05-17 12:30 | NUR ---
MEDS/GTUBER Addendum: 05/17/19 at 1734 by Flakita Sanderson RN CORRECTED ABOVE NOTES: MEDS/G TUBE: MINIMAL RESIDUALS NOTED. CRUSHED MEDS GIVEN.NO PROBLEM.
[2019-05-17 12:51] VITALS: BP_SYST 116
[2019-05-17] MEDS ORDERED: POTASSIUM CHLORIDE 20 MEQ/PKT PACKET GT ONE (15:00)
--- NOTE | 2019-05-17 15:00 | NUR ---
MEDS/G TUBE: NO RESIDUALS PRIOR TO GIVING MEDS. FLUSHED WITH WATER AFTER GIVING MEDS,WITH NO PROBLEM.
[2019-05-17] MEDS ORDERED: DOXYCYCLINE HYCLATE 100 MG in D5W 100 ML IV ONE (16:00)
[2019-05-17 16:41] VITALS: BP_SYST 121
--- NOTE | 2019-05-17 17:00 | NUR ---
BLOOD SUGAR: BLOOD [id number]=177AE/DL,HUMULIN R 8 UNITS SUBQ GIVEN PER SLIDING SCALE. NO PROBLEM.
--- NOTE | 2019-05-17 19:15 | NUR ---
END OF SHIFT: ENDORSED TO NIGHT NURSE ADIA.MOM AT THE BEDSIDE. PATIENT STABLE. TUBE FEEDS ON GOING. MENDOZA IN PLACE.MIDLINE IVF ,INTACT. SAFETY MEASURES RENDERED. CONTINUE TO MONITOR.
--- NOTE | 2019-05-17 19:15 | NUR ---
OPENING NOTES Bedside report received from dayshift nurse. Patient received lying in bed, sleeping, patient's mother at bedside. No s/s of acute distress noted. Breathing is even and unlabored. IVF and Gtube infusing well. Call light with patient. Bed alarm on. Bed is locked and at lowest position. Will continue to monitor.
[2019-05-17] MEDS: IPRATROPIUM BROM 0.5 MG/2.5 ML VIAL.NEB (ATROVENT) INH PRN (19:53)
[2019-05-17 20:00] VITALS: BP_SYST 131
--- NOTE | 2019-05-17 21:00 | NUR ---
MEDPASS/PERICARE Patient in bed, pericare done by FLAME HARDENING MACHINE OPERATOR and RN at this time. Patient tolerated well. Scheduled medications administered at this time. IVF and Gtube infusing well. Lema attached, secured and draining by gravity. All needs met. Seizure pads attached to side rails. Bed alarm on. Will continue to monitor.
[2019-05-17] MEDS: ALPRAZolam 0.25 MG TABLET GT SCH (21:38)
[2019-05-17] MEDS: ENOXAPARIN SODIUM 30 MG/0.3 ML SYRINGE SUBCUT SCH (21:39)
[2019-05-17] MEDS: LATANOPROST 2.5 ML DROPS (XALATAN) OP SCH (21:40)
[2019-05-17] MEDS: EMOLLIENT COMBINATION NO.73 78 GM CREAM..G. TP SCH (21:41)
[2019-05-17] MEDS: HYDROCORTISONE 1%, 28.35 GM TOPICAL CREAM TP SCH (21:41)
--- NOTE | 2019-05-17 23:00 | NUR ---
ROUNDS Patient in bed, asleep. No s/s of acute distress noted. Breathing even and unlabored, HOB raised, nasal canula attached properly, on 2L of oxygen. Bed alarm on. Will continue to monitor.
[2019-05-17] MEDS: DILTIAZEM HCL 25 MG/5 ML VIAL IVP PRN (23:26)
[2019-05-18] VITALS: BP_SYST 125
--- NOTE | 2019-05-18 01:00 | NUR ---
ROUNDS Patient sleeping. No s/s of acute distress noted. Breathing even and unlabored. Nasal canula attached properly. HOB raised, IVF and Gtube infusing well. All needs met. Will continue to monitor.
[2019-05-18] MEDS: 0.45% NACL 1,000 ML IV SCH ×2 (01:08→12:56)
--- NOTE | 2019-05-18 03:00 | NUR ---
ROUNDS Patient in bed sleeping comfortably. No signs of discomfort noted. Chest rise and fall even bilaterally. IVF and Gtube infusing well, HOB raised, nasal canula attached properly. Bed alarm on. Will continue to monitor.
--- NOTE | 2019-05-18 05:00 | NUR ---
ROUNDS Patient sleeping at this time. No signs of discomfort noted. Chest rise and fall even bilaterally. Bed alarm on. Will continue to monitor.
[2019-05-18] MEDS: LEVOTHYROXINE SODIUM 0.025 MG TABLET GT SCH (05:08)
[2019-05-18] MEDS: metroNIDAZOLE 500 mg/NS 100 ML IV SCH ×3 (05:10→21:25)
[2019-05-18] MEDS: DILTIAZEM HCL 90 MG TABLET GT SCH ×3 (05:10→17:40)
[2019-05-18] MEDS ORDERED: DOXYCYCLINE HYCLATE 100 MG in D5W 100 ML IV SCH (06:00)
[2019-05-18] MEDS: INSULIN REGULAR, HUMAN 100 UNITS/ML, 10 ML VIAL (humuLIN R) SUBCUT PRN ×4 (06:19→21:57)
--- NOTE | 2019-05-18 06:54 | NUR ---
CLOSING NOTES Patient in bed asleep at this time. No s/s of acute distress noted. Breathing is even and unlabored, HOB raised, nasal canula attached properly, on 2L of oxygen. IVF and Gtube infusing well. IV site is patent, no signs of infiltration or infection noted. Lema attached, secured, and draining by gravity. Skin warm and dry to touch. All needs met throughout shift. Fall and safety precautions maintained throughout the shift. Will continue to monitor until patient care is endorsed to oncoming dayshift nurse.
[2019-05-18] MEDS: ALBUTEROL SULFATE 0.083% 2.5 MG/3 ML VIAL.NEB INH PRN ×2 (07:18→12:53)
[2019-05-18] MEDS: IPRATROPIUM BROM 0.5 MG/2.5 ML VIAL.NEB (ATROVENT) INH PRN ×2 (07:19→19:32)
[2019-05-18] MEDS: cloNIDine HCL 0.1 MG TABLET GT PRN (07:26)
--- NOTE | 2019-05-18 07:30 | NUR ---
OPENING NOTES; RECEIVED PATIENT FROM FACILITIES OPERATIONS TECHNICIAN NURSE. PATIENT IS ASLEEP IN BED. PATIENT IS ON OXYGEN AT 2 L NASAL CANNULA AND STRUGGLING BREATHING. PATIENT WAS REPOSITIONED AND RESPIRATORY THERAPIST IS GIVING A BREATHING TREATMENT. FAMILY AT BEDSIDE. MIDLINE INTACT WITH CLEAN, DRY DRESSING AND RUNNING FLUIDS ORDERED. G-TUBE INTACT WITH CLEAN, DRY DRESSING. FEEDING WAS PUT ON HOLD DUE TO PATIENT HAVING DIFFICULTY BREATHING. MD WAS PAGED. MENDOZA CATHETER INTACT AND DRAINING BY GRAVITY. PATIENT IN STABLE CONDITION. SAFETY, FALL, ASPIRATION AND SEIZURE PRECAUTIONS ARE IN PLACE. BED LOCKED IN LOWEST POSITION WITH CALL LIGHT IN REACH. WILL CONTINUE TO MONITOR PATIENT FOR ANY CHANGES.
--- NOTE | 2019-05-18 07:33 | NUR ---
ELEVATED BLOOD PRESSURE 173/90 MEDICATED PER PRN ORDER. PATIENT IS AWAKE WITH EYES OPEN CURRENTLY RECEIVNG A BREATHING TREATMENT. PATIENT SHOWS NO SIGNS OF ANY DISTRESS. PATIENT TOLERATED MEDICATION WELL. DAY NURSE AND NIGHT NURSE AT BEDSIDE. FAMILY ALSO AT BEDSIDE. NO OTHER NEEDS AT THIS TIME.
--- NOTE | 2019-05-18 07:51 | NUR ---
PAGED PAGED MACIEJ RIZZO AT [phone] SPOKE WITH RENA.
[2019-05-18] MEDS: LOPERAMIDE HCL 2 MG CAPSULE GT SCH ×3 (08:23→21:24)
[2019-05-18] MEDS: SODIUM BICARBONATE 650 MG TABLET GT SCH ×3 (08:23→21:24)
[2019-05-18] MEDS: GEMFIBROZIL 600 MG TABLET (LOPID) GT SCH ×2 (08:23→21:24)
[2019-05-18] MEDS: BACLOFEN 10 MG TABLET GT SCH ×3 (08:23→21:24)
[2019-05-18] MEDS: DIPHENHYDRAMINE HCL 12.5 MG/5 ML UDC GT SCH (08:23)
[2019-05-18] MEDS: FLUDROCORTISONE ACETATE 0.1 MG TABLET( FLORINEF) GT SCH (08:23)
[2019-05-18] MEDS: HYDROCORTISONE 10 MG TABLET (CORTEF) GT SCH (08:23)
[2019-05-18] MEDS: CHOLECALCIFEROL (VITAMIN D3) 2,000 UNIT TABLET GT SCH (08:23)
[2019-05-18] MEDS: PARoxetine HCL 20 MG TABLET GT SCH ×2 (08:24→21:24)
[2019-05-18] MEDS: CITRIC ACID/SODIUM CITRATE 30 ML UDC GT SCH ×3 (08:24→21:22)
[2019-05-18] MEDS: LANSOPRAZOLE 30 MG CAPSULE.DR GT SCH (08:24)
[2019-05-18] MEDS: METOPROLOL TARTRATE 50 MG TABLET GT SCH ×2 (08:24→21:23)
[2019-05-18] MEDS: VALPROIC ACID ORAL SYRUP 250 MG/5 ML UDC GT SCH ×3 (08:25→21:23)
[2019-05-18] MEDS: NYSTATIN 15 GM TOPICAL POWDER TP SCH (08:25)
[2019-05-18 08:45] VITALS: BP_SYST 143
[2019-05-18 09:00] LABS: BASOPHILS # (AUTO) 0.1 K/uL (0.0-0.2); BASOPHILS % (AUTO) 0.6 % (0.0-2.0); EOSINOPHILS # (AUTO) 0.2 K/uL (0.0-0.4); HEMATOCRIT 24.5 % (36-54); HEMOGLOBIN 7.9 g/dL (14.0-18.0); LYMPHOCYTES # (AUTO) 3.3 K/uL (1.0-5.5); MEAN CORPUSCULAR HEMOGLOBIN 32 pg (27-31); MEAN CORPUSCULAR HGB CONC 32 % (32-36); MEAN CORPUSCULAR VOLUME 98 fL (79.0-98.0); MONOCYTES # (AUTO) 2.2 K/uL (0.0-1.0); MONOCYTES % (AUTO) 11.4 % (1.7-9.3); NEUTROPHILS # (AUTO) 13.5 K/uL (1.8-7.7); PLATELET COUNT (AUTO) 725 K/uL (130-430); RED BLOOD CELL COUNT(AUTO) 2.51 MIL/uL (4.2-6.2); WHITE BLOOD COUNT (AUTO) 19.3 K/uL (4.8-10.8)
[2019-05-18 09:05] LABS: CALCIUM 8.5 mg/dL (8.4-11.0); CREATININE 1.55 mg/dL (0.55-1.30); POTASSIUM 3.7 mmol/L (3.5-5.1)
[2019-05-18 09:09] LABS: PHOSPHORUS 3.7 mg/dL (2.7-4.5)
--- NOTE | 2019-05-18 10:10 | NUR ---
RN ROUNDS; PATIENT IS ASLEEP LAYING DOWN IN BED. NO SIGNS OF DISTRESS NOTED. PATIENT IS BREATHING BETTER THAN THIS MORNING. PATIENT IS TOLERATING OXYGEN AT 3 LITERS NASAL CANNULA. PATIENT IN STABLE CONDITION. WILL CONTINUE TO MONITOR PATIENT FOR ANY CHANGES.
--- NOTE | 2019-05-18 12:10 | NUR ---
RN ROUNDS: PATIENT IS AWAKE AND ALERT LAYING DOWN IN BED BUT NONVERBAL. FAMILY AT BEDSIDE. PATIENT IS TOLERATING OXYGEN AT 3 L NASAL CANNULA WITH NO SIGNS OF DISTRESS OR SHORTNESS OF BREATH. PATIENT IN STABLE CONDITION. WILL CONTINUE TO MONITOR PATIENT FOR ANY CHANGES.
[2019-05-18 12:43] VITALS: BP_SYST 132
--- NOTE | 2019-05-18 14:10 | NUR ---
RN ROUNDS: PATIENT IS ASLEEP IN BED. FAMILY AT BEDSIDE. NO SIGNS OF DISTRESS OR SHORTNESS OF BREATH NOTED. PATIENT IS TOLERATING OXYGEN AT 3L NASAL CANNULA. PATIENT IN STABLE CONDITION. WILL CONTINUE TO MONITOR PATIENT FOR ANY CHANGES.
--- NOTE | 2019-05-18 14:43 | NUR ---
Nutrition F/U (short note d/t high patient load) RD reviewed pt's current EMR including diet Hx, physician notes, nursing notes, pertinent labs/meds/procedures, care trends, and care activity. Current Diet Order/Nutrition Support: Glucerna 1.2 at 50 ml/hr, Banatrol TID, Free Water Flush: 100 ml Q6h via GT + Pureed, CCHO, renal diet Per RN report, no residual this morning, continues to refuse meals for oral gratification. RN also reported that Banatrol was administered this morning. Per bed huddle discussion, pt w/ episode of respiratory distress this morning. Per MD notes, pt has 2 loose stools last night. TF regimen and PO diet for oral gratification remain appropriate. Pt remains at high risk; F/U within 2-3 days.
[2019-05-18] MEDS ORDERED: FUROSEMIDE 20 MG/2 ML VIAL IVP ONE (16:00)
--- NOTE | 2019-05-18 16:20 | NUR ---
RN ROUNDS: PATIENT IS ASLEEP IN BED LAYING DOWN. FAMILY AT BEDSIDE. PATIENT IS TOLERATING OXYGEN AT 3L NASAL CANNULA WITH NO SIGNS OF DISTRESS OR SHORTNESS OF BREATH NOTED. MIDLINE INTACT WITH CLEAN, DRY DRESSING AND RUNNING FLUIDS ORDERED. PATIENT IN STABLE CONDITION. WILL CONTINUE TO MONITOR PATIENT FOR ANY CHANGES.
[2019-05-18 16:48] VITALS: BP_SYST 118; BP_SYST 139
[2019-05-18] MEDS ORDERED: PIPERACILLIN/TAZO 2.25G/DEX-IS 50 ML IV ONE (17:00)
[2019-05-18 18:26] LABS: BILIRUBIN,URINE NEGATIVE (NEGATIVE); CLARITY/URINE CLEAR (CLEAR); COLOR,URINE YELLOW (YELLOW); GLUCOSE,URINE TRACE (NEGATIVE); KETONES,URINE NEGATIVE (NEGATIVE); LEUKOCYTE ESTERASE ,URINE NEGATIVE (NEGATIVE); NITRITE, URINE NEGATIVE (NEGATIVE); PROTEIN URINE 1+ (NEGATIVE); UROBILINOGEN,URINE 0.2 (0.2-1.0)
[2019-05-18 18:41] LABS: BLOOD, URINE TRACE (NEGATIVE)
--- NOTE | 2019-05-18 18:41 | NUR ---
CLOSING NOTES: PATIENT IS ASLEEP IN BED. PATIENT IS ON OXYGEN AT 3 L NASAL CANNULA AND TOLERATING IT WELL. NO SIGNS OF DISTRESS OR SHORTNESS OF BREATH NOTED. FAMILY AT BEDSIDE. MIDLINE INTACT WITH CLEAN, DRY DRESSING AND RUNNING FLUIDS ORDERED. G-TUBE INTACT WITH CLEAN, DRY DRESSING AND RUNNING FEEDING ORDERED. MENDOZA CATHETER INTACT AND DRAINING BY GRAVITY. PATIENT IN STABLE CONDITION. SAFETY, FALL, ASPIRATION AND SEIZURE PRECAUTIONS REMAINED IN PLACE THROUGHOUT THE SHIFT. BED LOCKED IN LOWEST POSITION WITH CALL LIGHT IN REACH. WILL ENDORSE PATIENT CARE TO ONCOMING FLOWER SHOP LABORER/DESIGNER NURSE.
[2019-05-18 18:51] LABS: BACTERIA,URINE FEW /HPF (None Seen); FINE GRANULAR CASTS,URINE 0-10 /LPF (None Seen); MUCUS,URINE 1+ /LPF (None Seen)
[2019-05-18 20:00] VITALS: BP_SYST 126
--- NOTE | 2019-05-18 20:00 | NUR ---
ASSUMED CARE. RECEIVED AWAKE,ALERT,NON-VERBAL. AFEBRILE, NOT IN ACUTE DISTRESS. NO PAIN OR DISCOMFORT NOTED. WITH IV FLUID 1/2 NS INFUSING AT 30 ML/HR VIA LEFT UPPER ARM MIDLINE IV. FOLAEY CATHETER DRAINING CLEAR YELLOW URINE. G-TUBE FEEDING GLUCERNA 1.2 RUNNING AT 40 ML/HR. HEAD OF BED ELEVATED AT LEAST 30 DEGREES AT ALL TIMES. SAO2=98% ON 3 LPM O2 VIA NC. SINUS TACHYCARDIA AT LOW 100'S/MINUTE ON THE MONITOR. VS STABLE, WILL CONTINUE TO MONITOR. NEEDS ATTENDED.
[2019-05-18] MEDS: HYDROCORTISONE 1%, 28.35 GM TOPICAL CREAM TP SCH (21:21)
[2019-05-18] MEDS: EMOLLIENT COMBINATION NO.73 78 GM CREAM..G. TP SCH (21:21)
[2019-05-18] MEDS: LATANOPROST 2.5 ML DROPS (XALATAN) OP SCH (21:22)
[2019-05-18] MEDS: ALPRAZolam 0.25 MG TABLET GT SCH (21:23)
[2019-05-18] MEDS: ENOXAPARIN SODIUM 30 MG/0.3 ML SYRINGE SUBCUT SCH (21:26)
--- NOTE | 2019-05-18 21:26 | NUR ---
GASTRIC RESIDUAL < 5 ML. DUE MEDICATIONS GIVEN.
--- NOTE | 2019-05-18 21:57 | NUR ---
FINGERSTICK BLOOD SUGAR ONYPA=816. 2 UNITS OF REGULAR INSULIN SQ GIVEN PER SLIDING SCALE. PT'S FATHER AT BEDSIDE.
[2019-05-19] VITALS (14 sets, daily range): BP systolic 93–151
[2019-05-19] MEDS: PIPERACILLIN/TAZO 2.25G/DEX-IS 50 ML IV SCH ×4 (00:13→18:07)
[2019-05-19] MEDS: DILTIAZEM HCL 90 MG TABLET GT SCH ×4 (00:14→18:19)
--- NOTE | 2019-05-19 00:14 | NUR ---
ASLEEP, NOT IN ANY KIND OF DISTRESS. NO PAIN OR DISCOMFORT NOTED. DUE MEDICATIONS GIVEN. SIDE RAILS UP, CALL LIGHT WITHIN REACH. KEPT WARM AND COMFORTABLE. VS REMAIN STABLE. WILL CONTINUE TO MONITOR.
--- NOTE | 2019-05-19 04:00 | NUR ---
ASLEEP, NOT IN ACUTE DISTRESS. NO PAIN OR DISCOMFORT NOTED. NO CHANGE IN CONDITION.
[2019-05-19] MEDS: LEVOTHYROXINE SODIUM 0.025 MG TABLET GT SCH (06:05)
[2019-05-19] MEDS: metroNIDAZOLE 500 mg/NS 100 ML IV SCH ×3 (06:07→22:07)
[2019-05-19] MEDS: INSULIN REGULAR, HUMAN 100 UNITS/ML, 10 ML VIAL (humuLIN R) SUBCUT PRN ×4 (06:07→22:34)
--- NOTE | 2019-05-19 06:07 | NUR ---
FINGERSTICK BLOOD SUGAR ETCRC=534. 2 UNITS OF REGULAR INSULIN SQ GIVEN PER SLIDING SCALE. OTHER DUE MEDICATIONS ALSO GIVEN.
--- NOTE | 2019-05-19 07:05 | NUR ---
FINGERSTICK BLOOD SUGAR SAQKS=138. 2 UNITS OF REGULAR INSULIN SQ GIVEN PER SLIDING SCALE. OTHER DUE MEDICATIONS ALSO GIVEN.
[2019-05-19 07:23] LABS: BASOPHILS # (AUTO) 0.1 K/uL (0.0-0.2); BASOPHILS % (AUTO) 0.7 % (0.0-2.0); EOSINOPHILS # (AUTO) 0.3 K/uL (0.0-0.4); EOSINOPHILS % (AUTO) 1.3 % (0.0-4.0); HEMATOCRIT 25.1 % (36-54); HEMOGLOBIN 8.4 g/dL (14.0-18.0); LYMPHOCYTES # (AUTO) 3.8 K/uL (1.0-5.5); LYMPHOCYTES % (AUTO) 18.1 % (20.5-51.5); MEAN CORPUSCULAR HEMOGLOBIN 33 pg (27-31); MEAN CORPUSCULAR HGB CONC 34 % (32-36); MEAN CORPUSCULAR VOLUME 98 fL (79.0-98.0); MONOCYTES % (AUTO) 9.6 % (1.7-9.3); NEUTROPHILS # (AUTO) 14.7 K/uL (1.8-7.7); NEUTROPHILS % (AUTO) 70.3 % (40.0-70.0); RED BLOOD CELL COUNT(AUTO) 2.58 MIL/uL (4.2-6.2); RED CELL DISTRIBUTION WIDTH 15.1 % (9.0-15.0); WHITE BLOOD COUNT (AUTO) 20.9 K/uL (4.8-10.8)
--- NOTE | 2019-05-19 07:30 | NUR ---
OPENING NOTES: RECEIVED PATIENT FROM FOXING PAINTER NURSE. PATIENT IS AWAKE AND ALERT IN BED. PATIENT IS ON OXYGEN AT 3 L NASAL CANNULA AND TOLERATING WELL. FAMILY AT BEDSIDE. MIDLINE INTACT WITH CLEAN, DRY DRESSING AND RUNNING FLUIDS ORDERED. G-TUBE INTACT WITH CLEAN, DRY DRESSING. MENDOZA CATHETER INTACT AND DRAINING BY GRAVITY. PATIENT IN STABLE CONDITION. SAFETY, FALL, ASPIRATION AND SEIZURE PRECAUTIONS ARE IN PLACE. BED LOCKED IN LOWEST POSITION WITH CALL LIGHT IN REACH. WILL CONTINUE TO MONITOR PATIENT FOR ANY CHANGES.
[2019-05-19 08:19] LABS: CALCIUM 8.9 mg/dL (8.4-11.0); CREATININE 1.65 mg/dL (0.55-1.30); POTASSIUM 3.9 mmol/L (3.5-5.1); TOTAL BILIRUBIN 0.3 mg/dL (0.0-1.0)
[2019-05-19 08:26] LABS: PLATELET COUNT (AUTO) 926 K/uL (130-430)
[2019-05-19 08:37] LABS: ALBUMIN 1.4 g/dL (3.4-4.8)
[2019-05-19] MEDS: LANSOPRAZOLE 30 MG CAPSULE.DR GT SCH (09:04)
[2019-05-19] MEDS: BACLOFEN 10 MG TABLET GT SCH ×3 (09:04→20:42)
[2019-05-19] MEDS: PARoxetine HCL 20 MG TABLET GT SCH ×2 (09:04→20:42)
[2019-05-19] MEDS: FLUDROCORTISONE ACETATE 0.1 MG TABLET( FLORINEF) GT SCH (09:04)
[2019-05-19] MEDS: SODIUM BICARBONATE 650 MG TABLET GT SCH ×3 (09:04→20:43)
[2019-05-19] MEDS: HYDROCORTISONE 10 MG TABLET (CORTEF) GT SCH (09:04)
[2019-05-19] MEDS: LOPERAMIDE HCL 2 MG CAPSULE GT SCH ×3 (09:04→20:39)
[2019-05-19] MEDS: GEMFIBROZIL 600 MG TABLET (LOPID) GT SCH ×2 (09:04→20:42)
[2019-05-19] MEDS: CHOLECALCIFEROL (VITAMIN D3) 2,000 UNIT TABLET GT SCH (09:04)
[2019-05-19] MEDS: VALPROIC ACID ORAL SYRUP 250 MG/5 ML UDC GT SCH ×3 (09:06→20:42)
[2019-05-19] MEDS: DIPHENHYDRAMINE HCL 12.5 MG/5 ML UDC GT SCH (09:06)
[2019-05-19] MEDS: NYSTATIN 15 GM TOPICAL POWDER TP SCH (09:06)
[2019-05-19] MEDS: METOPROLOL TARTRATE 50 MG TABLET GT SCH ×2 (09:06→20:42)
[2019-05-19] MEDS: CITRIC ACID/SODIUM CITRATE 30 ML UDC GT SCH ×3 (09:06→20:43)
[2019-05-19] MEDS ORDERED: FUROSEMIDE 20 MG/2 ML VIAL IVP ONE (09:15)
--- NOTE | 2019-05-19 10:15 | NUR ---
RN ROUNDS: PATIENT IS ASLEEP IN BED. NO SIGNS OF DISTRESS OR SHORTNESS OF BREATH NOTED. FAMILY AT BEDSIDE. PATIENT IN STABLE CONDITION. WILL CONTINUE TO MONITOR PATIENT FOR ANY CHANGES.
--- NOTE | 2019-05-19 11:36 | NUR ---
CONSULTATION PAGED/CALLED Reason for Consultation: INC [employer] Person Who was Notified: JANNET Consulting Physician: Delivery Driver Assistant Specialty: Ordering Physician:
--- NOTE | 2019-05-19 11:48 | NUR ---
Wound Evaluation: Wound Consult ordered for Low Jacob Score. Patient evaluated for a low Jacob score of 12, now a 14. Patient was awake, lethargic, confused, and received in a Shelby Bed with an IsoFlex CESILIA mattress. Patient needs to be turned in bed. Skin is intact. Recommend reposition patient every 2 hours with pillow support. Elevate, off-load and float bilateral heels with pillows. Offload pressure areas with pillows for pressure re-distribution. Perform skin care and monitor skin integrity Q shift. Use moisture barrier cream on moisture susceptible areas QID and PRN for soiling. Initiate low air-loss therapy.
--- NOTE | 2019-05-19 12:10 | NUR ---
RN ROUNDS: PATIENT IS ASLEEP IN BED. FAMILY AT BEDSIDE. PATIENT IS TOLERATING OXYGEN AT 3 L NASAL CANNULA. PATIENT IN STABLE CONDITION. WILL CONTINUE TO MONITOR PATIENT FOR ANY CHANGES.
[2019-05-19] MEDS ORDERED: LINEZOLID 300 ML IV ONE (12:15)
--- NOTE | 2019-05-19 12:33 | NUR ---
DC PLANNING: CM SPOKE WITH PATIENT'S MOTHER AT BEDSIDE REGARDING LTAC EVAL. PATIENT'S MOTHER IS NOT AGREEABLE FOR LTAC. SHE HAS CONTACTED INSURANCE COMPANY AND WAS INFORM THAT PT CAN STAY IN [place]. PATIENT'S MOTHER PROVIDED CM COPY OF NEW INSURANCE CARD. CM PROVIDED ADMISSIONS COPY OF THE NEW INSURANCE CARD.
[2019-05-19] MEDS: 0.45% NACL 1,000 ML IV SCH ×2 (12:38→18:08)
--- NOTE | 2019-05-19 13:15 | NUR ---
BREATHING TX: PATIENT RECEIVING BREATHING TREATMENT. PATIENT IS VERY CONGESTED. DR. STINSON AWARE AND ORDERED AN ABG. WILL CONTINUE TO MONITOR.
[2019-05-19] MEDS: IPRATROPIUM BROM 0.5 MG/2.5 ML VIAL.NEB (ATROVENT) INH PRN (13:30)
[2019-05-19] MEDS: ALBUTEROL SULFATE 0.083% 2.5 MG/3 ML VIAL.NEB INH PRN (13:30)
--- NOTE | 2019-05-19 14:20 | NUR ---
TRANSFER: PATIENT TRANSFERRED TO ICU DUE TO PATIENT HAVING DIFFICULTY BREATHING, UNRESPONSIVE WITH A CO2 OF 98.3. REPORT GIVEN TO MELISSA KIM. Addendum: 05/19/19 at 1540 by Jennifer Delatorre RN PATIENT TOLERATED THE TRANSFER WELL.
[2019-05-19] MEDS ORDERED: MIDAZOLAM HCL 5 MG/5 ML VIAL ONE (14:24)
--- NOTE | 2019-05-19 14:35 | NUR ---
Received pt to ICU bed [address] Lerma at bedside. Pt is unresponsive at this time. RR 12-14 and shallow. 02 sats 100%. Lungs with rhonchi bilaterally. BP 104/66. Lema cath in place with abel urine in bag. RT with pt on arrival. Dr Lerma would like to intubate the pt.
--- NOTE | 2019-05-19 14:40 | NUR ---
Pt intubated with a 7.0 ET taped at 21 cm lip line by Dr. Lerma. Dr Lerma reviewed the post intubation chest xray and ET pulled back 2cm by RT per her direction. Sputum sample sent to lab. Pts vent settings are AC 20/350/100%/p5. Sats 100 % on these settings. Pt has a Gt clamped at this time. Abd is distended with hypoactive bowel sounds. Extremities contracted. Pt has scarring noted to sacral area with no open skin. Foam dressing in place. Pt has an 20g IV to left arm with IVF infusing at 30 cc/hr. Pt's HOB elevated. Will continue to monitor.
[2019-05-19] MEDS ORDERED: ETOMIDATE 20 MG/ 10 ML VIAL (AMIDATE) IVP ONE (16:00)
[2019-05-19] MEDS ORDERED: ROCURONIUM BROMIDE 10 MG/ML (ZEMURON) IV ONE (16:00)
--- NOTE | 2019-05-19 16:15 | NUR ---
ID consult called: for Dr. Leon, regarding sepsis, ordered by Dr. Peterson, spoke with Milton.
--- NOTE | 2019-05-19 16:20 | NUR ---
Reported post intubation ABG results to Dr. Mendoza with orders received to titrate 02 to keep sats greater than 90% and to increase peep to 8.
--- NOTE | 2019-05-19 17:25 | NUR ---
Tube feedings resumed at 40cc/hr.
[2019-05-19] MEDS ORDERED: NS 1000 ML IV.SOLN IV ONE (17:29)
[2019-05-19] MEDS ORDERED: EPINEPHrine JECT 0.1 MG/ML SYR IVP ONE (17:29)
[2019-05-19 18:08] LABS: TOTAL IRON BIND. CAPACITY 146 ug/dL (250-450)
[2019-05-19] MEDS ORDERED: DILTIAZEM HCL 30 MG TABLET ONE (18:33)
--- NOTE | 2019-05-19 19:00 | NUR ---
Pt remains comfortable on vent and in no distress. ST on monitor, rate 112 and HOB up. Family at bedside. No sedation needed since intubation. Good urine output.
--- NOTE | 2019-05-19 19:30 | NUR ---
Bedside report using SBAR given to oncoming staff to assume care of the patient.
--- NOTE | 2019-05-19 20:00 | NUR ---
Received pt intubated, appears to be in no acute distress.Pt is asleep.Father at bedside.Pt. has GT in place and tolerating tube feeding. has elevated temp, 102F.Turned and repositioned for comfort.Extremities are contracted with right upper extremities less contracted and able to move.
[2019-05-19] MEDS: EMOLLIENT COMBINATION NO.73 78 GM CREAM..G. TP SCH (20:43)
[2019-05-19] MEDS: HYDROCORTISONE 1%, 28.35 GM TOPICAL CREAM TP SCH (20:44)
[2019-05-19] MEDS: LATANOPROST 2.5 ML DROPS (XALATAN) OP SCH (20:45)
[2019-05-19] MEDS: ENOXAPARIN SODIUM 30 MG/0.3 ML SYRINGE SUBCUT SCH (20:46)
[2019-05-19] MEDS: ACETAMINOPHEN 650 MG/20.3 ML UDC GT PRN (21:04)
[2019-05-19] MEDS: LINEZOLID 300 ML IV SCH (21:09)
[2019-05-19 21:39] LABS: BILIRUBIN,URINE NEGATIVE (NEGATIVE); BLOOD, URINE NEGATIVE (NEGATIVE); CLARITY/URINE CLEAR (CLEAR); COLOR,URINE YELLOW (YELLOW); GLUCOSE,URINE 2+ (NEGATIVE); KETONES,URINE NEGATIVE (NEGATIVE); LEUKOCYTE ESTERASE ,URINE NEGATIVE (NEGATIVE); NITRITE, URINE NEGATIVE (NEGATIVE); PROTEIN URINE 2+ (NEGATIVE); UROBILINOGEN,URINE 0.2 (0.2-1.0)
[2019-05-19 21:57] LABS: BACTERIA,URINE FEW /HPF (None Seen); MUCUS,URINE 1+ /LPF (None Seen); RBC,URINE 0-3 /HPF (0-3); WBC,URINE 0-3 /HPF (0-3)
--- NOTE | 2019-05-19 23:45 | NUR ---
Opening Note Received report from RN at bedside. Pt Alert, and able to track, but unable to follow commands. Pt is intubated. Vent settings: AC 12, 350, 60%, +5. Pt tolerating well, no s/s of resp distress noted. G-tube in place running tubefeeding. Pt tolerating, 15cc residual noted. Pt has Lema catheter in place draining urine to gravity. Rt wrist restraint noted to prevent Pt from pulling out ETT. Pt has a LFA 20g in place, running IVF. No s/s of infiltration noted, site is C/D/I. Bed locked in lowest position, call light in reach, and safety precautions in place. Will continue to monitor.
[2019-05-20] VITALS (25 sets, daily range): BP systolic 88–150
[2019-05-20] MEDS: DILTIAZEM HCL 90 MG TABLET GT SCH ×4 (00:32→17:29)
[2019-05-20] MEDS: PIPERACILLIN/TAZO 2.25G/DEX-IS 50 ML IV SCH ×4 (00:32→17:27)
--- NOTE | 2019-05-20 02:30 | NUR ---
RN Rounds Pt in bed, asleep on and off. No s/s of distress noted. Pt tolerating feeding well. VSS. Will continue to monitor.
--- NOTE | 2019-05-20 04:50 | NUR ---
RN Rounds Pt in bed asleep. No s/s of distress. Oral care given, and pt tolerating well. VSS, with HR slightly elevated. SR. Will continue to monitor.
[2019-05-20] MEDS: LEVOTHYROXINE SODIUM 0.025 MG TABLET GT SCH (05:24)
[2019-05-20] MEDS: metroNIDAZOLE 500 mg/NS 100 ML IV SCH ×3 (06:29→22:00)
[2019-05-20] MEDS: INSULIN REGULAR, HUMAN 100 UNITS/ML, 10 ML VIAL (humuLIN R) SUBCUT PRN ×4 (06:32→21:50)
[2019-05-20 06:36] LABS: BASOPHILS # (AUTO) 0.1 K/uL (0.0-0.2); BASOPHILS % (AUTO) 0.5 % (0.0-2.0); EOSINOPHILS # (AUTO) 0.2 K/uL (0.0-0.4); HEMATOCRIT 22.4 % (36-54); HEMOGLOBIN 7.7 g/dL (14.0-18.0); LYMPHOCYTES # (AUTO) 3.4 K/uL (1.0-5.5); LYMPHOCYTES % (AUTO) 21.1 % (20.5-51.5); MEAN CORPUSCULAR HEMOGLOBIN 33 pg (27-31); MEAN CORPUSCULAR HGB CONC 34 % (32-36); MEAN CORPUSCULAR VOLUME 96 fL (79.0-98.0); MONOCYTES # (AUTO) 1.3 K/uL (0.0-1.0); MONOCYTES % (AUTO) 8.2 % (1.7-9.3); NEUTROPHILS # (AUTO) 11.2 K/uL (1.8-7.7); NEUTROPHILS % (AUTO) 69.2 % (40.0-70.0); RED BLOOD CELL COUNT(AUTO) 2.33 MIL/uL (4.2-6.2); WHITE BLOOD COUNT (AUTO) 16.1 K/uL (4.8-10.8)
[2019-05-20 06:39] LABS: CALCIUM 8.6 mg/dL (8.4-11.0); CREATININE 1.77 mg/dL (0.55-1.30)
--- NOTE | 2019-05-20 06:55 | NUR ---
Closing Note Pt in bed AAO. SR/ST on the monitor. Vent settings: AC 20, 350, 60%, +8. Pt has YURI PICC in place. No s/s of infiltration noted. Pt has G-tube, tolerating tubefeeding well, minimal residual noted. Pt has Rt wrist restraint in place. Lema catheter noted, draining urine to gravity. Bed in lowets position, call light in reach,and safety precautions in place. Will endorse to oncoming RN.
[2019-05-20 06:56] LABS: POTASSIUM 2.9 mmol/L (3.5-5.1)
--- NOTE | 2019-05-20 07:00 | NUR ---
Endorsement Report given to oncoming RN at bedside via SBAR approach.
--- NOTE | 2019-05-20 07:05 | NUR ---
Received Shift report from night RN using SBAR.
[2019-05-20 07:46] LABS: PLATELET COUNT (AUTO) 799 K/uL (130-430)
--- NOTE | 2019-05-20 07:47 | NUR ---
Critical Value Received platelet value of 799. Trending down from yesterday of 926. Called Dr Peterson exchanged per Mariel. Waiting for MD callback.
--- NOTE | 2019-05-20 08:00 | NUR ---
Oral Care provided. PT tolerated well.
--- NOTE | 2019-05-20 08:00 | NUR ---
Pt in bed AAO. No signs of pain or distress. Sinus Tach Vent settings: AC 20, 350, 60%, PEEP 8. Pt has YURI PICC in place 23 circumference, 0 out. No s/s of infiltration noted. Pt has G-tube, tolerating tubefeeding with 0 residual. ABD is distended and firm with hypoactive bowel sounds. Pt has Rt wrist restraint in place. Lema catheter noted, draining urine to gravity. Bed lock and in lowest position with call light in reach and bed alarm on. Mother bedside as well.
[2019-05-20] MEDS: FLUDROCORTISONE ACETATE 0.1 MG TABLET( FLORINEF) GT SCH (08:14)
[2019-05-20] MEDS: GEMFIBROZIL 600 MG TABLET (LOPID) GT SCH ×2 (08:14→21:54)
[2019-05-20] MEDS: PARoxetine HCL 20 MG TABLET GT SCH ×2 (08:14→21:54)
[2019-05-20] MEDS: DIPHENHYDRAMINE HCL 12.5 MG/5 ML UDC GT SCH (08:14)
[2019-05-20] MEDS: BACLOFEN 10 MG TABLET GT SCH ×3 (08:15→21:54)
[2019-05-20] MEDS: LOPERAMIDE HCL 2 MG CAPSULE GT SCH ×3 (08:16→21:00)
[2019-05-20] MEDS: LANSOPRAZOLE 30 MG CAPSULE.DR GT SCH (08:16)
[2019-05-20] MEDS: SODIUM BICARBONATE 650 MG TABLET GT SCH ×3 (08:16→21:54)
[2019-05-20] MEDS: CHOLECALCIFEROL (VITAMIN D3) 2,000 UNIT TABLET GT SCH (08:16)
[2019-05-20] MEDS: METOPROLOL TARTRATE 50 MG TABLET GT SCH ×2 (08:17→22:08)
[2019-05-20] MEDS: LINEZOLID 300 ML IV SCH ×2 (08:19→21:30)
[2019-05-20] MEDS: NYSTATIN 15 GM TOPICAL POWDER TP SCH (08:19)
[2019-05-20] MEDS: CITRIC ACID/SODIUM CITRATE 30 ML UDC GT SCH ×3 (08:20→21:55)
[2019-05-20] MEDS: VALPROIC ACID ORAL SYRUP 250 MG/5 ML UDC GT SCH ×3 (08:21→21:56)
--- NOTE | 2019-05-20 08:45 | NUR ---
MD ROUNDS Dr Bassett bedside. Inform MD of hypoactive bowel sounds and a bought of diarrhea. Orders received.
--- NOTE | 2019-05-20 09:00 | NUR ---
CHG Bath Provided perineal and perianal care, changed bed linens, bedbath given with warm soapy water. CHG bath given. PT tolerated well. Noticed of loose stools/diarrhea. Will inform GI MD and will continue to monitor.
--- NOTE | 2019-05-20 09:51 | NUR ---
MD ROUNDS Dr Lerma bedside. Informed of PT potassium level of 2.9. Will follow up with primary.
[2019-05-20] MEDS: HYDROCORTISONE 10 MG TABLET (CORTEF) GT SCH (10:52)
[2019-05-20] MEDS: POTASSIUM CHLORIDE 20 MEQ TAB.PRT.SR PO SCH ×2 (10:54→17:26)
--- NOTE | 2019-05-20 12:24 | NUR ---
1029 ET TUBE PUSHED DOWN 1CM FROM TO PER DR. MILAD HELTON HEARD, VOLUME ACHIEVED WILL CONTINUE TO MONITOR.. Addendum: 05/20/19 at 1226 by Stephani Herrmann RT Amended: Links added.
--- NOTE | 2019-05-20 12:30 | NUR ---
Oral Care provided. PT tolerated well.
[2019-05-20] MEDS ORDERED: POTASSIUM CHLORIDE 40 MEQ, LIDOCAINE JECT 2% PF 100 MG 75 MG in NS 250 ML IV ONE (12:45)
--- NOTE | 2019-05-20 13:04 | NUR ---
Nutrition Note RD modified pt's diet order as it reflected dual nutrition support -- TF w/ pureed diet. PO diet is not indicated at this time as pt is intubated. New nutrition support order: Glucerna 1.5 at 40 ml/hr, Free Water Flush: 100 ml Q[address] GT. [address] to F/U as per nutrition care standards.
[2019-05-20] MEDS ORDERED: PANTOPRAZOLE SODIUM 40 MG/VIAL (PROTONIX) IVP ONE (16:00)
--- NOTE | 2019-05-20 16:15 | NUR ---
Oral Care provided. PT tolerated well.
[2019-05-20 16:36] LABS: BASOPHILS % (AUTO) 0.2 % (0.0-2.0); EOSINOPHILS # (AUTO) 0.1 K/uL (0.0-0.4); EOSINOPHILS % (AUTO) 0.3 % (0.0-4.0); HEMATOCRIT 23.3 % (36-54); LYMPHOCYTES # (AUTO) 1.1 K/uL (1.0-5.5); LYMPHOCYTES % (AUTO) 6.5 % (20.5-51.5); MEAN CORPUSCULAR HEMOGLOBIN 33 pg (27-31); MEAN CORPUSCULAR HGB CONC 34 % (32-36); MEAN CORPUSCULAR VOLUME 95 fL (79.0-98.0); MONOCYTES % (AUTO) 5.9 % (1.7-9.3); NEUTROPHILS % (AUTO) 87.1 % (40.0-70.0); RED BLOOD CELL COUNT(AUTO) 2.45 MIL/uL (4.2-6.2); RED CELL DISTRIBUTION WIDTH 14.9 % (9.0-15.0); WHITE BLOOD COUNT (AUTO) 17.2 K/uL (4.8-10.8)
[2019-05-20 16:43] LABS: CALCIUM 8.3 mg/dL (8.4-11.0); CREATININE 1.58 mg/dL (0.55-1.30); POTASSIUM 3.5 mmol/L (3.5-5.1)
[2019-05-20 16:46] LABS: PHOSPHORUS 4.1 mg/dL (2.7-4.5)
[2019-05-20 16:54] LABS: PLATELET COUNT (AUTO) 868 K/uL (130-430)
--- NOTE | 2019-05-20 19:05 | NUR ---
Endorsement/Closing Note End of shift report given to night RN using SBAR. PT resting with no signs of pain or distress. Pt father bedside. Bed locked and lowest position with call light in place. Night RN bedside.
--- NOTE | 2019-05-20 19:15 | NUR ---
Endorsement/Closing notes Provided shift report to night nurse using SBAR. Pt sleeping. No signs of distress or pain. Daughter bedside. Levophed running at 2mcg/kg/min. BP 92/51. Bed locked and in lowest position with call light in place. Addendum: 05/20/19 at 1923 by Zachary Zhao RN Wrong PT noted. Correct PT chart updated. Disregard initial note.
--- NOTE | 2019-05-20 20:00 | NUR ---
OPENS EYES SPONTANEOUSLY. DOES NOT FOLLOW COMMANDS. ORALLY INTUBATED. SUCTIONED WITH SMALL AMOUNT OF CLEAR THIN MUCUS OBTAINED. ORAL CARE GIVEN. ON GT FEEDING WITH GLUCERNA 1.2 AT 40CC/HR. RESIDUAL CHECK 0. LEFT ARM AND LOWER EXTREMITIES CONTRACTED. SOFT WRIST RESTRAINT ON RIGHT WRIST FOR SAFETY. MENDOZA CATH PATENT DRAINING CLEAR SPENCER URINE TO GRAVITY. HANDS AND FEET EDEMATOUS. SCROTAL EDEMA NOTED. SIDE RAILS PADDED. YURI PICC LINE SHIKHAG D/I. SR. FATHER AT BEDSIDE VISITING. QUESTIONS ANSWERED. SOME EDUCATION GIVEN.
--- NOTE | 2019-05-20 21:00 | NUR ---
ACCU-CHEK 266, 4 UNITS REGULAR INSULIN SQ GIVEN PER SLIDING SCALE COV.
[2019-05-20] MEDS: LATANOPROST 2.5 ML DROPS (XALATAN) OP SCH (21:57)
[2019-05-20] MEDS: EMOLLIENT COMBINATION NO.73 78 GM CREAM..G. TP SCH (21:57)
[2019-05-20] MEDS: HYDROCORTISONE 1%, 28.35 GM TOPICAL CREAM TP SCH (21:58)
--- NOTE | 2019-05-20 22:00 | NUR ---
1 LARGE BROWN LBM DEFECATED. CLEANED. HS CARE, GLADIS-CARE, MENDOZA CARE, SKIN CARE, BACK CARE GIVEN. PARTIAL LINEN CHANGE DONE. DOES NOT ASSIST WITH TURNING. ADRIANNA PROC WELL.
[2019-05-21] VITALS (27 sets, daily range): BP systolic 101–140
--- NOTE | 2019-05-21 | NUR ---
SUCTIONED. TURNED. GT FLUSHED WITH 100CC H2O. ORAL CARE DONE. RESIDUAL CHECK 0.
[2019-05-21] MEDS: PIPERACILLIN/TAZO 2.25G/DEX-IS 50 ML IV SCH ×4 (00:20→17:37)
[2019-05-21] MEDS: DILTIAZEM HCL 90 MG TABLET GT SCH ×4 (00:21→17:36)
--- NOTE | 2019-05-21 02:00 | NUR ---
DOZES ON AND OFF. SUCTIONED. TURNED.
--- NOTE | 2019-05-21 04:00 | NUR ---
SLEPT FOR LONG PERIODS OF TIME. SUCTIONED AGAIN WITH SAME RESULTS. ORAL CARE GIVEN. RESIDUAL CHECK 0.
--- NOTE | 2019-05-21 06:00 | NUR ---
SUCTIONED AND TURNED Q2 HRS AND PRN. 1 LARGE WATERY BROWN STOOL DEFECATED, GLADIS-CARE GIVEN. MENDOZA CARE, BACK CARE, SKIN CARE RENDERED. PARTIAL LINEN CHANGE DONE. DOES NOT ASSIST WITH TURNING. TOLERATED PROCEDURE WELL. GT FLUSHED WITH 100CC H2O. ACCU-CHEK 228, 4 UNITS REGULAR INSULIN SQ GIVEN PER SLIDING SCALE COV. UO GOOD. REMAINS IN GUARDED CONDITION.
[2019-05-21] MEDS: INSULIN REGULAR, HUMAN 100 UNITS/ML, 10 ML VIAL (humuLIN R) SUBCUT PRN ×3 (06:27→17:35)
[2019-05-21 06:36] LABS: BASOPHILS # (AUTO) 0.1 K/uL (0.0-0.2); BASOPHILS % (AUTO) 0.4 % (0.0-2.0); EOSINOPHILS # (AUTO) 0.2 K/uL (0.0-0.4); EOSINOPHILS % (AUTO) 1.6 % (0.0-4.0); HEMOGLOBIN 7.2 g/dL (14.0-18.0); LYMPHOCYTES % (AUTO) 14.9 % (20.5-51.5); MEAN CORPUSCULAR HEMOGLOBIN 32 pg (27-31); MEAN CORPUSCULAR HGB CONC 34 % (32-36); MEAN CORPUSCULAR VOLUME 96 fL (79.0-98.0); MONOCYTES % (AUTO) 7.3 % (1.7-9.3); NEUTROPHILS # (AUTO) 10.2 K/uL (1.8-7.7); NEUTROPHILS % (AUTO) 75.8 % (40.0-70.0); RED BLOOD CELL COUNT(AUTO) 2.23 MIL/uL (4.2-6.2); RED CELL DISTRIBUTION WIDTH 15.3 % (9.0-15.0); WHITE BLOOD COUNT (AUTO) 13.5 K/uL (4.8-10.8)
[2019-05-21] MEDS: LEVOTHYROXINE SODIUM 0.025 MG TABLET GT SCH (06:36)
[2019-05-21 06:59] LABS: CALCIUM 8.4 mg/dL (8.4-11.0); CREATININE 1.58 mg/dL (0.55-1.30); POTASSIUM 3.5 mmol/L (3.5-5.1); TOTAL BILIRUBIN 0.3 mg/dL (0.0-1.0)
--- NOTE | 2019-05-21 07:20 | NUR ---
Opening Note Received bedside report from endorsing RN for continuation of care. Received patient resting in bed, arousable to voice touch, no signs or symptoms of acute distress noted. Bed locked in lowest position and bed alarm on. Fall and safety precautions in place.
[2019-05-21 07:26] LABS: HEMATOCRIT 21.5 % (36-54)
--- NOTE | 2019-05-21 07:35 | NUR ---
Dr. Yeager at bedside examining patient. No new orders.
[2019-05-21 08:11] LABS: PLATELET COUNT (AUTO) 833 K/uL (130-430)
[2019-05-21] MEDS: DIPHENHYDRAMINE HCL 12.5 MG/5 ML UDC GT SCH (08:19)
[2019-05-21] MEDS: LOPERAMIDE HCL 2 MG CAPSULE GT SCH ×3 (08:19→21:03)
[2019-05-21] MEDS: LINEZOLID 300 ML IV SCH ×2 (08:19→21:06)
[2019-05-21] MEDS: BACLOFEN 10 MG TABLET GT SCH ×3 (08:19→21:02)
[2019-05-21] MEDS: GEMFIBROZIL 600 MG TABLET (LOPID) GT SCH ×2 (08:20→21:03)
[2019-05-21] MEDS: METOPROLOL TARTRATE 50 MG TABLET GT SCH ×2 (08:20→21:05)
[2019-05-21] MEDS: FLUDROCORTISONE ACETATE 0.1 MG TABLET( FLORINEF) GT SCH (08:20)
[2019-05-21] MEDS: PANTOPRAZOLE SODIUM 40 MG/VIAL (PROTONIX) IVP SCH (08:20)
[2019-05-21] MEDS: SODIUM BICARBONATE 650 MG TABLET GT SCH ×3 (08:20→21:05)
[2019-05-21] MEDS: CITRIC ACID/SODIUM CITRATE 30 ML UDC GT SCH ×3 (08:21→21:08)
[2019-05-21] MEDS: HYDROCORTISONE 10 MG TABLET (CORTEF) GT SCH (08:21)
[2019-05-21] MEDS: VALPROIC ACID ORAL SYRUP 250 MG/5 ML UDC GT SCH ×3 (08:21→21:07)
[2019-05-21] MEDS: PARoxetine HCL 20 MG TABLET GT SCH ×2 (08:21→21:06)
[2019-05-21] MEDS: NYSTATIN 15 GM TOPICAL POWDER TP SCH (08:23)
[2019-05-21] MEDS: CHOLECALCIFEROL (VITAMIN D3) 2,000 UNIT TABLET GT SCH (08:23)
[2019-05-21 10:06] LABS: FOLATE (FOLIC ACID) 8.9 ng/mL (>3.0)
--- NOTE | 2019-05-21 11:45 | NUR ---
Dr. Peterson at bedside examining patient. New orders received.
--- NOTE | 2019-05-21 11:46 | NUR ---
Dr. Hussein at bedside examining patient. No new orders.
[2019-05-21] MEDS: ALBUMIN HUMAN 25% 50 ML IV SCH ×2 (12:01→17:34)
--- NOTE | 2019-05-21 12:38 | NUR ---
Dr. Goldberg at bedside examining patient. New orders received.
--- NOTE | 2019-05-21 12:39 | NUR ---
Oral Care Oral care performed, no signs or symptoms of acute distress noted. Patient tolerated well.
[2019-05-21] MEDS: SOD FERRIC GLUC COMPLEX/SUC 125 MG in NS 100 ML IV SCH (14:34)
[2019-05-21] MEDS: 0.45% NACL 1,000 ML IV SCH (14:39)
--- NOTE | 2019-05-21 15:00 | NUR ---
CHG CHG bath given and bed linens changed. Patient cleaned, turned, and repositioned. No signs or symptoms of acute distress noted.
--- NOTE | 2019-05-21 15:04 | NUR ---
Dr. Lerma at bedside examining patient. New orders received.
--- NOTE | 2019-05-21 15:53 | NUR ---
BT INITIATION: Consent signed per patient's mother agreeing to administration of blood. Blood has been type and crossmatched. Blood sent from blood bank. Information on unit of blood checked against patient wristband at bedside by two nurses. All information matches. Patient or responsible green party informed of potential complications associated with blood transfusion. Informed of possible transfusion reaction symptoms. Aware of need to notify nurse at once of itching, shortness of breath, flushing, feeling of impending doom, or other symptoms not previously present. Vital signs taken within 5 minutes prior to initiation of transfusion. BP 126/82, HR 102, RR 16, temperature 98.3, SpO2 100%. RN will remain with patient for first 15 minutes of transfusion at which time vital signs will be re-assessed.
--- NOTE | 2019-05-21 16:08 | NUR ---
Blood transfusion complete. Patient tolerated well, no signs or symptoms of acute distress noted.
--- NOTE | 2019-05-21 16:48 | NUR ---
Nutrition F/U RD reviewed pt's current EMR record including diet Hx, physician notes, nursing notes, pertinent labs/meds/procedures, care trends, and care activity. 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 Current Diet Order/Nutrition Support: Glucerna 1.5 at 40 ml/hr, Free Water Flush: 100 ml Q6h via GT x1 day Subjective Info: Pt seen resting in bed earlier today, intubated on vent w/ TF infusing Glucerna 1.5 at 40 ml/hr -- 293 ml infused, providing 440 kcal. Per RN, pt has been tolerating TF well, no residuals. Plans for BT d/t low Hgb/Hct/Platelet count per EMR. RN reported pt has not had diarrhea today, but 2 bouts reported from cytotechnologist/cytology supervisor. On 05/20/19, RD D/C pureed, CCHO, renal diet that was in place for oral gratification d/t pt's intubated status. NEW Estimated Energy Expenditure (kcals/day) -- Minute Volume: 6.9/Temperature: 37.1 degrees Celsius 1404 kcal/day (PSU for REE d/t critical illness on vent support) Estimated Protein Required (g/day) 32-60 gm/day (0.8-1.5 gm/kg IBW for elevated Renal labs/sepsis) Estimated Fluid Required (l/day) 1.4 L/day (30ml/kg CBW for diarrhea) Problem/Etiology/Signs/Symptoms Altered GI function r/t medication AEB flagyl and reports of diarrhea per nursing staff. *no longer applicable Expected Outcomes/Goals Monitor EN support and intake w/ goal of pt meeting at least 75% of estimated nutritional needs, labs trending WNL, normal GI function, skin integrity/wt maintenance. Dietitian Recommendations * Recommend continuing Glucerna 1.5 at 40 ml/hr, Free Water Flush: 100 ml Q6h via GT Provides: 1440 kcal/day, 79 gm protein/day, and 1129 ml free water/day Meets: 103% of estimated caloric needs and 132% of upper end of estimated protein needs Follow Up High Risk: F/U in 2-3 days
--- NOTE | 2019-05-21 16:57 | NUR ---
Dietitian Recommendations * Recommend continuing Glucerna 1.5 at 40 ml/hr, Free Water Flush: 100 ml Q6h via GT Provides: 1440 kcal/day, 79 gm protein/day, and 1129 ml free water/day Meets: 103% of estimated caloric needs and 132% of upper end of estimated protein needs LP, RD Please refer to Nutrition F/U for details.
--- NOTE | 2019-05-21 19:15 | NUR ---
Endorsement Endorsed bedside report to oncoming RN using SBAR approach for continuation of care.
--- NOTE | 2019-05-21 20:05 | NUR ---
PM initial note Received patient after report from out going AM shift. Awake with both eyes opened but unable to follow simple commands as patient's father stated at bedside "that is his baseline". intubated with ETT #7 and 21 cm to lip. vent settings AC 16, TV 350, FIO2 40% and peep 8 and tolerating with o2 sats 98%. No signs of discomfort or respiratory distress noted at this time. Chest rising equally BL . IVF infusing to YURI picc; no signs of infiltration noted. Lema catheter in place and draining urine to gravity. Pt's father continues at bedside. Repositioned for comfort, bed set at lowest settings. call light within reach. will continue to monitor as per Unit protocol.
[2019-05-21] MEDS: LATANOPROST 2.5 ML DROPS (XALATAN) OP SCH (21:07)
[2019-05-21] MEDS: HYDROCORTISONE 1%, 28.35 GM TOPICAL CREAM TP SCH (21:08)
[2019-05-21] MEDS: EMOLLIENT COMBINATION NO.73 78 GM CREAM..G. TP SCH (21:09)
--- NOTE | 2019-05-21 21:50 | NUR ---
Repositioned for comfort, turned and cleaned after BM.
[2019-05-22] VITALS (25 sets, daily range): BP systolic 120–158
--- NOTE | 2019-05-22 02:05 | NUR ---
patient resting in bed still awake. IVF infusing to left picc line; no signs of infiltration or infection noted. Ventilator in place with no change in settings; patient tolerating. Lema in place and draining urine by gravity. repositioned for comfort. will continue to monitor.
[2019-05-22] MEDS: DILTIAZEM HCL 90 MG TABLET GT SCH ×5 (03:06→23:49)
[2019-05-22] MEDS: ACETAMINOPHEN 650 MG/20.3 ML UDC GT PRN (03:06)
[2019-05-22] MEDS: ALBUMIN HUMAN 25% 50 ML IV SCH (03:09)
[2019-05-22] MEDS: PIPERACILLIN/TAZO 2.25G/DEX-IS 50 ML IV SCH ×5 (03:09→23:49)
--- NOTE | 2019-05-22 04:10 | NUR ---
repositioned for comfort. Bed bath given as patient was able to tolerate turning positions and changes in HOB. No signs of respiratory distress noted during procedure. will continue to monitor.
[2019-05-22] MEDS: LEVOTHYROXINE SODIUM 0.025 MG TABLET GT SCH (05:42)
[2019-05-22 06:29] LABS: BASOPHILS # (AUTO) 0.1 K/uL (0.0-0.2); BASOPHILS % (AUTO) 0.6 % (0.0-2.0); EOSINOPHILS # (AUTO) 0.3 K/uL (0.0-0.4); EOSINOPHILS % (AUTO) 3.1 % (0.0-4.0); HEMATOCRIT 26.1 % (36-54); HEMOGLOBIN 9.2 g/dL (14.0-18.0); LYMPHOCYTES # (AUTO) 2.6 K/uL (1.0-5.5); MEAN CORPUSCULAR HEMOGLOBIN 32 pg (27-31); MEAN CORPUSCULAR HGB CONC 35 % (32-36); MEAN CORPUSCULAR VOLUME 91 fL (79.0-98.0); MONOCYTES # (AUTO) 0.8 K/uL (0.0-1.0); MONOCYTES % (AUTO) 7.4 % (1.7-9.3); NEUTROPHILS # (AUTO) 7.5 K/uL (1.8-7.7); NEUTROPHILS % (AUTO) 65.9 % (40.0-70.0); RED BLOOD CELL COUNT(AUTO) 2.86 MIL/uL (4.2-6.2); RED CELL DISTRIBUTION WIDTH 17.7 % (9.0-15.0); WHITE BLOOD COUNT (AUTO) 11.3 K/uL (4.8-10.8)
[2019-05-22] MEDS: INSULIN REGULAR, HUMAN 100 UNITS/ML, 10 ML VIAL (humuLIN R) SUBCUT PRN ×4 (06:42→21:50)
--- NOTE | 2019-05-22 06:55 | NUR ---
received call from lab to report Platelet value 700 no action taken since value has been trending down from previous study and MD aware due to patient's disease process and HX. MD was not informed but information passed in report to incoming nurse.
[2019-05-22 07:05] LABS: PLATELET COUNT (AUTO) 794 K/uL (130-430)
[2019-05-22 07:10] LABS: FREE T4 (FREE THYROXINE) 0.8 ng/dl (0.8-1.5)
--- NOTE | 2019-05-22 07:15 | NUR ---
Opening Note Received bedside report from endorsing RN for continuation of care. Received patient resting in bed, arousable to voice and touch, no signs or symptoms of acute distress noted. Bed locked in lowest position and bed alarm on. Fall and safety precautions in place.
[2019-05-22 07:26] LABS: POTASSIUM 2.7 mmol/L (3.5-5.1)
[2019-05-22 07:27] LABS: CALCIUM 7.8 mg/dL (8.4-11.0)
[2019-05-22 07:28] LABS: CREATININE 1.4 mg/dL (0.55-1.30); TOTAL BILIRUBIN 0.4 mg/dL (0.0-1.0)
[2019-05-22 07:29] LABS: ALBUMIN 1.9 g/dL (3.4-4.8); PHOSPHORUS 2.7 mg/dL (2.7-4.5)
--- NOTE | 2019-05-22 08:25 | NUR ---
RT NOTES Vent settings to SIMV [address] Lerma's order. Will monitor pt.
--- NOTE | 2019-05-22 08:40 | NUR ---
Dr. Yeager in to see patient. New orders received.
[2019-05-22] MEDS: FOLIC ACID 1 MG TABLET GT SCH (08:51)
[2019-05-22] MEDS: LINEZOLID 300 ML IV SCH ×2 (08:51→21:14)
[2019-05-22] MEDS: PANTOPRAZOLE SODIUM 40 MG/VIAL (PROTONIX) IVP SCH (08:51)
[2019-05-22] MEDS: SODIUM BICARBONATE 650 MG TABLET GT SCH ×3 (08:51→21:16)
[2019-05-22] MEDS: FLUDROCORTISONE ACETATE 0.1 MG TABLET( FLORINEF) GT SCH (08:52)
[2019-05-22] MEDS: DIPHENHYDRAMINE HCL 12.5 MG/5 ML UDC GT SCH (08:52)
[2019-05-22] MEDS: BACLOFEN 10 MG TABLET GT SCH ×3 (08:52→21:18)
[2019-05-22] MEDS: CHOLECALCIFEROL (VITAMIN D3) 2,000 UNIT TABLET GT SCH (08:52)
[2019-05-22] MEDS: PARoxetine HCL 20 MG TABLET GT SCH ×2 (08:52→21:18)
[2019-05-22] MEDS: LOPERAMIDE HCL 2 MG CAPSULE GT SCH ×3 (08:52→21:18)
[2019-05-22] MEDS: GEMFIBROZIL 600 MG TABLET (LOPID) GT SCH ×2 (08:52→21:16)
[2019-05-22] MEDS: CITRIC ACID/SODIUM CITRATE 30 ML UDC GT SCH ×3 (08:53→21:15)
[2019-05-22] MEDS: HYDROCORTISONE 10 MG TABLET (CORTEF) GT SCH (08:53)
[2019-05-22] MEDS: VALPROIC ACID ORAL SYRUP 250 MG/5 ML UDC GT SCH ×3 (08:53→21:15)
[2019-05-22] MEDS: METOPROLOL TARTRATE 50 MG TABLET GT SCH ×2 (08:54→21:17)
[2019-05-22] MEDS: NYSTATIN 15 GM TOPICAL POWDER TP SCH (08:55)
[2019-05-22] MEDS: FUROSEMIDE 20 MG/2 ML VIAL IVP SCH (08:55)
--- NOTE | 2019-05-22 09:00 | NUR ---
Dr. Lerma in to see patient. New orders received.
--- NOTE | 2019-05-22 09:40 | NUR ---
RT NOTES Vent settings to AC 12 per standing order due to tachypnea. R.R in the 50s. RN aware.
[2019-05-22] MEDS ORDERED: KCL 40 mEq in 100 mL (PREMIX) 100 ML IV ONE (09:45)
[2019-05-22] MEDS: SOD FERRIC GLUC COMPLEX/SUC 125 MG in NS 100 ML IV SCH (11:27)
--- NOTE | 2019-05-22 12:21 | NUR ---
Dr. Peterson at bedside examining patient. New orders received.
--- NOTE | 2019-05-22 13:24 | NUR ---
CHG/BM CHG bath given and bed linens changed. Patient had large loose BM. Patient cleaned, turned, and repositioned. No signs or symptoms of acute distress noted. Bed locked in lowest position and bed alarm on. Fall and safety precautions in place. Seizure precautions in place.
--- NOTE | 2019-05-22 13:43 | NUR ---
Nutrition Note RD received voice mail from Dr. Peterson regarding request to change pt's TF formula from Glucerna to alternative formula d/t pt's possible intolerance to feeding -- pt has been having diarrhea per physician report. RD reviewed pt's current EMR as well as most recent Nutrition F/U 05/21/19. New RD Recommendation: Vital AF 1.2 at 45 ml/hr, Banatrol BID, Free Water Flush: 150 ml Q6h via GT Provides: 1296 kcal/day, 81 gm protein/day, and 1476 ml free water/day Meets: 92% of estimated caloric needs and 135% of upper end of estimated protein needs RD to continue to follow as per nutrition care standards. Addendum: 05/22/19 at [address] Peterson also mentioned that he would like for pt to receive a high protein formula. Vital AF 1.2 is a formula that is designed to promote tolerance w/ hydrolyzed peptide-based protein, MCT/fish oil structured lipid which is a well-tolerated and absorbed next-generation fat to promote absorption of fatty acids, as well as contains prebiotic fibers that stimulate the growth of beneficial bacteria in the colon.
[2019-05-22] MEDS ORDERED: POTASSIUM CHLORIDE 20 MEQ/PKT PACKET GT ONE (14:00)
[2019-05-22] MEDS: 0.45% NACL 1,000 ML IV SCH (14:47)
--- NOTE | 2019-05-22 16:05 | NUR ---
Dr. Goldberg in to see patient. New orders received.
--- NOTE | 2019-05-22 19:05 | NUR ---
PM ASSESSMENT Pt in bed with eyes open resting comfortably, no signs of acute distress or discomfort noted. Pt intubated with vent settings: AC 12, TV 350, Fio2 40% and PEEP of 5. Pt tolerating settings well with O2 sats @ 99% and even and unlabored breathing. Pt has YURI picc infusing IVF at this time. PICC line dressing c/d/i. Gtube noted infusing tubefeeding. Lema cath noted draining urine to gravity. Bed is locked and in lowest position, call light within reach, will cont to monitor pt.
--- NOTE | 2019-05-22 19:05 | NUR ---
Endorsement Endorsed bedside report to oncoming RN using SBAR approach for continuation of care.
[2019-05-22] MEDS: LATANOPROST 2.5 ML DROPS (XALATAN) OP SCH (21:16)
[2019-05-22] MEDS: HYDROCORTISONE 1%, 28.35 GM TOPICAL CREAM TP SCH (21:16)
[2019-05-22] MEDS: EMOLLIENT COMBINATION NO.73 78 GM CREAM..G. TP SCH (21:19)
[2019-05-22] MEDS ORDERED: POTASSIUM CHLORIDE 40 MEQ, LIDOCAINE JECT 2% PF 100 MG 75 MG in NS 250 ML IV ONE (22:00)
[2019-05-23] VITALS (32 sets, daily range): BP systolic 112–145
--- NOTE | 2019-05-23 03:40 | NUR ---
Pt had a bowel movement at this time. Pericare, laureano cath, and skin care performed. Chucks replaced from under pt. Pt tolerated well, will cont to monitor pt.
[2019-05-23] MEDS: DILTIAZEM HCL 90 MG TABLET GT SCH ×4 (05:55→23:47)
[2019-05-23] MEDS: LEVOTHYROXINE SODIUM 0.025 MG TABLET GT SCH (05:56)
[2019-05-23] MEDS: PIPERACILLIN/TAZO 2.25G/DEX-IS 50 ML IV SCH (05:56)
[2019-05-23 06:58] LABS: BASOPHILS # (AUTO) 0.1 K/uL (0.0-0.2); BASOPHILS % (AUTO) 1.1 % (0.0-2.0); EOSINOPHILS # (AUTO) 0.5 K/uL (0.0-0.4); EOSINOPHILS % (AUTO) 4.6 % (0.0-4.0); HEMATOCRIT 28.3 % (36-54); HEMOGLOBIN 9.4 g/dL (14.0-18.0); LYMPHOCYTES # (AUTO) 2.8 K/uL (1.0-5.5); LYMPHOCYTES % (AUTO) 23.2 % (20.5-51.5); MEAN CORPUSCULAR HEMOGLOBIN 31 pg (27-31); MEAN CORPUSCULAR HGB CONC 33 % (32-36); MEAN CORPUSCULAR VOLUME 93 fL (79.0-98.0); MONOCYTES # (AUTO) 0.9 K/uL (0.0-1.0); MONOCYTES % (AUTO) 7.3 % (1.7-9.3); NEUTROPHILS # (AUTO) 7.6 K/uL (1.8-7.7); NEUTROPHILS % (AUTO) 63.8 % (40.0-70.0); RED BLOOD CELL COUNT(AUTO) 3.05 MIL/uL (4.2-6.2); RED CELL DISTRIBUTION WIDTH 17.5 % (9.0-15.0); WHITE BLOOD COUNT (AUTO) 11.9 K/uL (4.8-10.8)
[2019-05-23 07:09] LABS: CALCIUM 8.5 mg/dL (8.4-11.0); CREATININE 1.18 mg/dL (0.55-1.30); POTASSIUM 3.8 mmol/L (3.5-5.1); TOTAL BILIRUBIN 0.2 mg/dL (0.0-1.0)
--- NOTE | 2019-05-23 07:15 | NUR ---
Received patient from NOC shift and report. In no acute distress. Side rails x 3 up. Call light with in reach.
--- NOTE | 2019-05-23 07:20 | NUR ---
ENDORSEMENT Report given to oncoming dayshift RN using SBAR format and pt care was endorsed. No signs of acute distress or discomfort noted.
[2019-05-23 07:24] LABS: PLATELET COUNT (AUTO) 881 K/uL (130-430)
[2019-05-23 08:16] LABS: ALBUMIN 1.5 g/dL (3.4-4.8)
--- NOTE | 2019-05-23 08:16 | NUR ---
Paged MD Hussein in regards to critical lab result platelet count [phone].
[2019-05-23] MEDS: LINEZOLID 300 ML IV SCH (09:17)
[2019-05-23] MEDS: VALPROIC ACID ORAL SYRUP 250 MG/5 ML UDC GT SCH ×3 (09:18→20:02)
[2019-05-23] MEDS: CITRIC ACID/SODIUM CITRATE 30 ML UDC GT SCH ×3 (09:18→20:02)
[2019-05-23] MEDS: HYDROCORTISONE 10 MG TABLET (CORTEF) GT SCH (09:19)
[2019-05-23] MEDS: GEMFIBROZIL 600 MG TABLET (LOPID) GT SCH ×2 (09:19→20:03)
[2019-05-23] MEDS: DIPHENHYDRAMINE HCL 12.5 MG/5 ML UDC GT SCH (09:19)
[2019-05-23] MEDS: PANTOPRAZOLE SODIUM 40 MG/VIAL (PROTONIX) IVP SCH (09:19)
[2019-05-23] MEDS: FOLIC ACID 1 MG TABLET GT SCH (09:20)
[2019-05-23] MEDS: PARoxetine HCL 20 MG TABLET GT SCH ×2 (09:20→20:04)
[2019-05-23] MEDS: FLUDROCORTISONE ACETATE 0.1 MG TABLET( FLORINEF) GT SCH (09:20)
[2019-05-23] MEDS: SODIUM BICARBONATE 650 MG TABLET GT SCH (09:20)
[2019-05-23] MEDS: CHOLECALCIFEROL (VITAMIN D3) 2,000 UNIT TABLET GT SCH (09:20)
[2019-05-23] MEDS: BACLOFEN 10 MG TABLET GT SCH ×3 (09:21→20:03)
[2019-05-23] MEDS: NYSTATIN 15 GM TOPICAL POWDER TP SCH (09:22)
[2019-05-23] MEDS: FUROSEMIDE 20 MG/2 ML VIAL IVP SCH (09:22)
[2019-05-23] MEDS: LOPERAMIDE HCL 2 MG CAPSULE GT SCH ×3 (09:26→20:04)
[2019-05-23] MEDS: METOPROLOL TARTRATE 50 MG TABLET GT SCH ×2 (09:27→20:03)
--- NOTE | 2019-05-23 09:30 | NUR ---
MD Hussein called back, informed platelet of [phone]. No new orders
[2019-05-23] MEDS: LORazepam 2 MG/ML VIAL IVP PRN (09:59)
[2019-05-23] MEDS: DILTIAZEM HCL 25 MG/5 ML VIAL IVP PRN (10:00)
[2019-05-23] MEDS: ACETAMINOPHEN 650 MG/20.3 ML UDC GT PRN (10:06)
[2019-05-23] MEDS: MORPHINE 2 MG/ML INJ. SYRINGE IVP PRN (10:11)
[2019-05-23] MEDS: SOD FERRIC GLUC COMPLEX/SUC 125 MG in NS 100 ML IV SCH (12:30)
[2019-05-23] MEDS: 0.45% NACL 1,000 ML IV SCH (15:54)
[2019-05-23] MEDS: cefTRIAXone 1 GM in D5W 50 ML IV SCH (15:54)
[2019-05-23] MEDS: INSULIN REGULAR, HUMAN 100 UNITS/ML, 10 ML VIAL (humuLIN R) SUBCUT PRN ×2 (18:01→20:37)
--- NOTE | 2019-05-23 19:02 | NUR ---
Gave patient and oral report to oncoming shift nurse. Patient in no acute distress. Side rails x 3 up. Call light with in reach.
--- NOTE | 2019-05-23 19:05 | NUR ---
PM ASSESSMENT Pt in bed with eyes open resting comfortably, no signs of acute distress or discomfort noted. Pt intubated with vent settings: SIMV 10, TV 350, Fio2 40%, PEEP of 5 and PS 10. Pt tolerating settings well with O2 sats @ 99% and even and unlabored breathing. Pt has YURI picc infusing IVF at this time. PICC line dressing c/d/i. Gtube noted infusing tubefeeding. Lema cath noted draining urine to gravity. R wrist restraint applied to pt, no injury noted. Bed is locked and in lowest position, call light within reach, will cont to monitor pt.
[2019-05-23] MEDS: LATANOPROST 2.5 ML DROPS (XALATAN) OP SCH (20:03)
[2019-05-23] MEDS: HYDROCORTISONE 1%, 28.35 GM TOPICAL CREAM TP SCH (20:04)
[2019-05-23] MEDS: EMOLLIENT COMBINATION NO.73 78 GM CREAM..G. TP SCH (20:04)
--- NOTE | 2019-05-23 22:00 | NUR ---
Pt in bed with eyes closed resting comfortably, no signs of acute distress or discomfort noted. Pt repositioned at this time. Pt tolerated well. Bed is locked and in lowest position, call light within reach, will cont to monitor pt.
[2019-05-24] VITALS (30 sets, daily range): BP systolic 89–168
--- NOTE | 2019-05-24 04:45 | NUR ---
Pt had a bowel movement at this time. Pt cleaned and terence-care performed, chucks replaced and skin care provided. Pt tolerated well. Bed is locked and in lowest position, call light within reach, will cont to monitor pt.
[2019-05-24] MEDS: DILTIAZEM HCL 90 MG TABLET GT SCH ×4 (05:55→23:33)
[2019-05-24] MEDS: LEVOTHYROXINE SODIUM 0.025 MG TABLET GT SCH (05:55)
[2019-05-24 06:37] LABS: CALCIUM 8.4 mg/dL (8.4-11.0); CREATININE 1.02 mg/dL (0.55-1.30); POTASSIUM 3.2 mmol/L (3.5-5.1)
[2019-05-24 06:51] LABS: BASOPHILS # (AUTO) 0.2 K/uL (0.0-0.2); BASOPHILS % (AUTO) 1.2 % (0.0-2.0); EOSINOPHILS # (AUTO) 0.8 K/uL (0.0-0.4); EOSINOPHILS % (AUTO) 4.9 % (0.0-4.0); HEMATOCRIT 27.3 % (36-54); HEMOGLOBIN 9.6 g/dL (14.0-18.0); LYMPHOCYTES % (AUTO) 28.5 % (20.5-51.5); MEAN CORPUSCULAR HEMOGLOBIN 33 pg (27-31); MEAN CORPUSCULAR HGB CONC 35 % (32-36); MEAN CORPUSCULAR VOLUME 93 fL (79.0-98.0); MONOCYTES # (AUTO) 1.4 K/uL (0.0-1.0); MONOCYTES % (AUTO) 8.2 % (1.7-9.3); NEUTROPHILS % (AUTO) 57.2 % (40.0-70.0); RED BLOOD CELL COUNT(AUTO) 2.95 MIL/uL (4.2-6.2); RED CELL DISTRIBUTION WIDTH 17.2 % (9.0-15.0); WHITE BLOOD COUNT (AUTO) 17.5 K/uL (4.8-10.8)
--- NOTE | 2019-05-24 07:05 | NUR ---
ENDORSEMENT Report given to oncoming dayshift RN using SBAR format and pt care was endorsed. No signs of acute distress or discomfort noted.
--- NOTE | 2019-05-24 07:15 | NUR ---
Received patient and report from [facility] shift nurse. Patient in bed in no acute distress.
[2019-05-24 07:27] LABS: PLATELET COUNT (AUTO) 918 K/uL (130-430)
[2019-05-24] MEDS: DIPHENHYDRAMINE HCL 12.5 MG/5 ML UDC GT SCH (08:57)
[2019-05-24] MEDS: PANTOPRAZOLE SODIUM 40 MG/VIAL (PROTONIX) IVP SCH (08:58)
[2019-05-24] MEDS: FUROSEMIDE 20 MG/2 ML VIAL IVP SCH (08:58)
[2019-05-24] MEDS: FLUDROCORTISONE ACETATE 0.1 MG TABLET( FLORINEF) GT SCH (08:58)
[2019-05-24] MEDS: BACLOFEN 10 MG TABLET GT SCH ×3 (08:58→21:35)
[2019-05-24] MEDS: FOLIC ACID 1 MG TABLET GT SCH (08:59)
[2019-05-24] MEDS: PARoxetine HCL 20 MG TABLET GT SCH ×2 (08:59→21:38)
[2019-05-24] MEDS: LOPERAMIDE HCL 2 MG CAPSULE GT SCH ×3 (08:59→21:41)
[2019-05-24] MEDS: METOPROLOL TARTRATE 50 MG TABLET GT SCH ×2 (08:59→21:36)
[2019-05-24] MEDS: GEMFIBROZIL 600 MG TABLET (LOPID) GT SCH ×2 (08:59→21:37)
[2019-05-24] MEDS: HYDROCORTISONE 10 MG TABLET (CORTEF) GT SCH (09:00)
[2019-05-24] MEDS: VALPROIC ACID ORAL SYRUP 250 MG/5 ML UDC GT SCH ×3 (09:00→21:39)
[2019-05-24] MEDS: CHOLECALCIFEROL (VITAMIN D3) 2,000 UNIT TABLET GT SCH (09:00)
[2019-05-24] MEDS: CITRIC ACID/SODIUM CITRATE 30 ML UDC GT SCH ×3 (09:00→21:37)
[2019-05-24] MEDS: NYSTATIN 15 GM TOPICAL POWDER TP SCH (09:01)
[2019-05-24] MEDS: ACETAMINOPHEN 650 MG/20.3 ML UDC GT PRN (09:10)
[2019-05-24] MEDS: DILTIAZEM HCL 25 MG/5 ML VIAL IVP PRN (09:11)
[2019-05-24] MEDS ORDERED: POTASSIUM CHLORIDE 40 MEQ, LIDOCAINE JECT 2% PF 100 MG 75 MG in NS 250 ML IV ONE (11:00)
[2019-05-24] MEDS: SOD FERRIC GLUC COMPLEX/SUC 125 MG in NS 100 ML IV SCH (11:16)
[2019-05-24] MEDS: cefTRIAXone 1 GM in D5W 50 ML IV SCH (11:17)
[2019-05-24] MEDS: INSULIN REGULAR, HUMAN 100 UNITS/ML, 10 ML VIAL (humuLIN R) SUBCUT PRN ×3 (11:22→21:35)
[2019-05-24] MEDS: LORazepam 2 MG/ML VIAL IVP PRN (11:38)
[2019-05-24] MEDS: MORPHINE 2 MG/ML INJ. SYRINGE IVP PRN (12:02)
[2019-05-24] MEDS: cloNIDine HCL 0.1 MG TABLET GT PRN (12:02)
[2019-05-24] MEDS: 0.45% NACL 1,000 ML IV SCH (16:58)
--- NOTE | 2019-05-24 19:20 | NUR ---
Endorsed patient and gave report to oncoming nurse. Patient in no acute distress.
--- NOTE | 2019-05-24 20:09 | NUR ---
Right soft Wrist Restraint in place & WNL patient does attempt to pull on tubes , assist & Redirect as needed continue to monitor .
--- NOTE | 2019-05-24 21:09 | NUR ---
Turning & Reposition OFF loading with pillows General EDEMA is noted POSITION change tolerate on schedule no SOB noted chest movement shallow also symmetrical .
[2019-05-24] MEDS: EMOLLIENT COMBINATION NO.73 78 GM CREAM..G. TP SCH (21:38)
[2019-05-24] MEDS: LATANOPROST 2.5 ML DROPS (XALATAN) OP SCH (21:38)
[2019-05-24] MEDS: HYDROCORTISONE 1%, 28.35 GM TOPICAL CREAM TP SCH (21:38)
--- NOTE | 2019-05-24 22:40 | NUR ---
Depakene 250 MG PER GT administer , no visual SEIZURE activity noted frequent monitor for safety family @ the bedside .
[2019-05-25] VITALS (29 sets, daily range): BP systolic 111–165
--- NOTE | 2019-05-25 02:18 | NUR ---
suction up right position thick white sputum patient frequent eye opening non verbal is intubated tolerating TUBE FEEDING as ordered .
[2019-05-25] MEDS: LEVOTHYROXINE SODIUM 0.025 MG TABLET GT SCH (06:28)
[2019-05-25] MEDS: DILTIAZEM HCL 90 MG TABLET GT SCH ×4 (06:28→23:48)
[2019-05-25] MEDS: INSULIN REGULAR, HUMAN 100 UNITS/ML, 10 ML VIAL (humuLIN R) SUBCUT PRN ×4 (06:30→21:05)
[2019-05-25 06:33] LABS: BASOPHILS # (AUTO) 0.1 K/uL (0.0-0.2); EOSINOPHILS # (AUTO) 0.5 K/uL (0.0-0.4); EOSINOPHILS % (AUTO) 4.5 % (0.0-4.0); HEMATOCRIT 28.4 % (36-54); HEMOGLOBIN 9.5 g/dL (14.0-18.0); LYMPHOCYTES # (AUTO) 3.3 K/uL (1.0-5.5); LYMPHOCYTES % (AUTO) 28.7 % (20.5-51.5); MEAN CORPUSCULAR HEMOGLOBIN 31 pg (27-31); MEAN CORPUSCULAR HGB CONC 33 % (32-36); MEAN CORPUSCULAR VOLUME 93 fL (79.0-98.0); NEUTROPHILS # (AUTO) 6.5 K/uL (1.8-7.7); NEUTROPHILS % (AUTO) 56.8 % (40.0-70.0); RED BLOOD CELL COUNT(AUTO) 3.06 MIL/uL (4.2-6.2); RED CELL DISTRIBUTION WIDTH 17.3 % (9.0-15.0); WHITE BLOOD COUNT (AUTO) 11.4 K/uL (4.8-10.8)
[2019-05-25 06:56] LABS: CALCIUM 8.4 mg/dL (8.4-11.0); PHOSPHORUS 3.7 mg/dL (2.7-4.5); POTASSIUM 3.2 mmol/L (3.5-5.1)
--- NOTE | 2019-05-25 07:10 | NUR ---
Opening Note Received patient report from endorsing nurse, Anthony KIM
--- NOTE | 2019-05-25 08:10 | NUR ---
Round Dr. Yeager at bedside assessing patient, no new orders
[2019-05-25] MEDS: PANTOPRAZOLE SODIUM 40 MG/VIAL (PROTONIX) IVP SCH (08:15)
[2019-05-25] MEDS: FUROSEMIDE 20 MG/2 ML VIAL IVP SCH (08:16)
[2019-05-25] MEDS: DIPHENHYDRAMINE HCL 12.5 MG/5 ML UDC GT SCH (08:16)
[2019-05-25] MEDS: GEMFIBROZIL 600 MG TABLET (LOPID) GT SCH ×2 (08:16→20:47)
[2019-05-25] MEDS: METOPROLOL TARTRATE 50 MG TABLET GT SCH ×2 (08:17→20:47)
[2019-05-25] MEDS: FOLIC ACID 1 MG TABLET GT SCH (08:18)
[2019-05-25] MEDS: PARoxetine HCL 20 MG TABLET GT SCH ×2 (08:18→20:47)
[2019-05-25] MEDS: CHOLECALCIFEROL (VITAMIN D3) 2,000 UNIT TABLET GT SCH (08:19)
[2019-05-25] MEDS: BACLOFEN 10 MG TABLET GT SCH ×3 (08:19→20:47)
[2019-05-25] MEDS: FLUDROCORTISONE ACETATE 0.1 MG TABLET( FLORINEF) GT SCH (08:19)
[2019-05-25] MEDS: VALPROIC ACID ORAL SYRUP 250 MG/5 ML UDC GT SCH ×3 (08:19→20:46)
[2019-05-25] MEDS: HYDROCORTISONE 10 MG TABLET (CORTEF) GT SCH (08:20)
[2019-05-25] MEDS: CITRIC ACID/SODIUM CITRATE 30 ML UDC GT SCH ×3 (08:20→20:45)
[2019-05-25] MEDS: NYSTATIN 15 GM TOPICAL POWDER TP SCH (08:22)
[2019-05-25] MEDS: ACETAMINOPHEN 650 MG/20.3 ML UDC GT PRN ×3 (08:24→20:52)
[2019-05-25] MEDS: 0.45% NACL 1,000 ML IV SCH (08:36)
--- NOTE | 2019-05-25 08:45 | NUR ---
MD Round Dr. Suarez assessing patient, physician entered orders
--- NOTE | 2019-05-25 09:10 | NUR ---
MD Round Dr. Lerma assessing patient at bedside, physician entered orders
[2019-05-25] MEDS: LOPERAMIDE HCL 2 MG CAPSULE GT SCH ×3 (09:59→20:47)
[2019-05-25] MEDS ORDERED: ENOXAPARIN SODIUM 40 MG/0.4 ML SYRINGE SUBCUT ONE (10:00)
--- NOTE | 2019-05-25 10:05 | NUR ---
RT NOTES- CPAP 5, PS10 PT PLACED ON CPAP 5, PS10, 40%FIO2 PER . JUDY ROJO MADE AWARE. NO RESPIRATORY DISTRESS NOTED. WILL CONTINUE MONITORING.
--- NOTE | 2019-05-25 10:10 | NUR ---
MD Round Dr. Hussein at bedside assessing patient, physician entered orders
[2019-05-25] MEDS: POTASSIUM CHLORIDE 20 MEQ TAB.PRT.SR PO SCH ×2 (10:19→14:23)
[2019-05-25 11:10] LABS: PLATELET COUNT (AUTO) 948 K/uL (130-430)
[2019-05-25] MEDS: cloNIDine HCL 0.3 MG/24 HR PATCH.TDWK TD SCH (11:27)
[2019-05-25] MEDS: cefTRIAXone 1 GM in D5W 50 ML IV SCH (11:27)
[2019-05-25] MEDS: SOD FERRIC GLUC COMPLEX/SUC 125 MG in NS 100 ML IV SCH (11:28)
--- NOTE | 2019-05-25 12:15 | NUR ---
MD Contacted Dr. Lerma informed of ABG results after patient was placed on CPAP, no change in orders per physician. Patient is to be observed on CPAP settings for 24 hours.
[2019-05-25] MEDS ORDERED: MAGNESIUM SULFATE 50 ML IV ONE (13:45)
[2019-05-25] MEDS: MORPHINE 2 MG/ML INJ. SYRINGE IVP PRN (15:11)
--- NOTE | 2019-05-25 16:45 | NUR ---
Garage Door Technician: met with pt. and father to conduct a DCPA. Pt. was non verbal, father was able to assist in completing a DCPA. Father was knowledgeable. He stated he feels the hospital bed here at [facility] is better than the one he has at home as pt. can sit upright and it provides better support for him due to the pneumonia. Father stated pt is to return back home with family. Pt. has 2 Rn. and 1 aide. They are in home 10-12 hrs daily. Pt. also had Diabetes, attends [employer] [facility] Pt. has a cognitive level fo a 7 year old. His vocab. is very limited. STEAK SAUCE MAKER will remain available as needed.
--- NOTE | 2019-05-25 16:49 | NUR ---
Operations Vocational Instructor: met with pt. to conduct a DCPA. DIRECTIONAL DRILLER went to pts. room for the second time today. DIRECTIONAL DRILLER learned pt. is nonverbal. Family will need to be called to complete a Discharge Planning Assessment.
--- NOTE | 2019-05-25 17:00 | NUR ---
Round Dr. Peterson at bedside assessing patient, physician entered orders
--- NOTE | 2019-05-25 19:05 | NUR ---
PM ASSESSMENT Pt in bed with eyes open resting comfortably, no signs of acute distress or discomfort noted. Pt intubated with vent settings: CPAP 5, TV 350, FIO2 40%, PEEP of 5, PS 10. Pt tolerating settings well with O2 sats @ 97% and even and unlabored breathing. Pt has YURI picc infusing IVF at this time. PICC line dressing c/d/i. Gtube noted infusing tubefeeding. Lema cath noted draining urine to gravity. R wrist restraint applied to pt, no injury noted. Bed is locked and in lowest position, call light within reach, will cont to monitor pt.
--- NOTE | 2019-05-25 19:34 | NUR ---
Closing Note Patient report given via SBAR to nightshift nurse
[2019-05-25] MEDS: HYDROCORTISONE 1%, 28.35 GM TOPICAL CREAM TP SCH (20:48)
[2019-05-25] MEDS: EMOLLIENT COMBINATION NO.73 78 GM CREAM..G. TP SCH (20:48)
[2019-05-25] MEDS: LATANOPROST 2.5 ML DROPS (XALATAN) OP SCH (20:49)
[2019-05-26] VITALS (25 sets, daily range): BP systolic 133–171
--- NOTE | 2019-05-26 | NUR ---
Pt in bed with eyes closed resting comfortably. No signs of acute distress or discomfort noted. Pt repositioned at this time. Bed is locked and in lowest position, call light within reach, will cont to monitor pt.
--- NOTE | 2019-05-26 04:00 | NUR ---
Pt in bed with eyes closed resting comfortably. Even chest rise and fall and unlabored breathing noted. Bed is locked and in lowest position, call light within reach, will cont to monitor pt.
[2019-05-26] MEDS: LEVOTHYROXINE SODIUM 0.025 MG TABLET GT SCH (05:04)
[2019-05-26] MEDS: DILTIAZEM HCL 90 MG TABLET GT SCH ×4 (05:04→23:20)
[2019-05-26] MEDS: INSULIN REGULAR, HUMAN 100 UNITS/ML, 10 ML VIAL (humuLIN R) SUBCUT PRN ×4 (06:03→21:40)
[2019-05-26 06:08] LABS: BASOPHILS # (AUTO) 0.1 K/uL (0.0-0.2); BASOPHILS % (AUTO) 0.6 % (0.0-2.0); EOSINOPHILS # (AUTO) 0.5 K/uL (0.0-0.4); EOSINOPHILS % (AUTO) 3.6 % (0.0-4.0); HEMATOCRIT 30.1 % (36-54); LYMPHOCYTES # (AUTO) 4.4 K/uL (1.0-5.5); MEAN CORPUSCULAR HEMOGLOBIN 31 pg (27-31); MEAN CORPUSCULAR HGB CONC 33 % (32-36); MEAN CORPUSCULAR VOLUME 92 fL (79.0-98.0); MONOCYTES # (AUTO) 1.6 K/uL (0.0-1.0); NEUTROPHILS # (AUTO) 8.1 K/uL (1.8-7.7); NEUTROPHILS % (AUTO) 54.8 % (40.0-70.0); RED BLOOD CELL COUNT(AUTO) 3.26 MIL/uL (4.2-6.2); RED CELL DISTRIBUTION WIDTH 17.1 % (9.0-15.0); WHITE BLOOD COUNT (AUTO) 14.8 K/uL (4.8-10.8)
[2019-05-26 06:22] LABS: PLATELET COUNT (AUTO) 969 K/uL (130-430)
--- NOTE | 2019-05-26 06:31 | NUR ---
DR. BRONWYN NORWOOD PAGED REGARDING CRITICAL LABS AT THIS TIME. PLT [phone]. SPOKE WITH GRIS AT THE EXCHANGE.
[2019-05-26 06:33] LABS: CREATININE 0.91 mg/dL (0.55-1.30); POTASSIUM 3.1 mmol/L (3.5-5.1)
--- NOTE | 2019-05-26 07:18 | NUR ---
ENDORSEMENT Report given to dayshift RN using SBAR format and pt care was endorsed. No signs of acute distress or discomfort noted.
--- NOTE | 2019-05-26 07:24 | NUR ---
Opening Note Patient report received via SBAR from endorsing nurse
--- NOTE | 2019-05-26 07:40 | NUR ---
Round Dr. Yeager at bedside assessing patient, new orders entered.
[2019-05-26] MEDS: PANTOPRAZOLE SODIUM 40 MG/VIAL (PROTONIX) IVP SCH (08:45)
[2019-05-26] MEDS: CHOLESTYRAMINE/SUCROSE 4 GM/PACKET PO SCH ×2 (08:45→21:34)
[2019-05-26] MEDS: DIPHENHYDRAMINE HCL 12.5 MG/5 ML UDC GT SCH (08:46)
[2019-05-26] MEDS: LOPERAMIDE HCL 2 MG CAPSULE GT PRN (08:46)
[2019-05-26] MEDS: VALPROIC ACID ORAL SYRUP 250 MG/5 ML UDC GT SCH ×3 (08:46→21:33)
[2019-05-26] MEDS: BACLOFEN 10 MG TABLET GT SCH ×3 (08:46→21:33)
[2019-05-26] MEDS: FUROSEMIDE 20 MG/2 ML VIAL IVP SCH (08:46)
[2019-05-26] MEDS: HYDROCORTISONE 10 MG TABLET (CORTEF) GT SCH (08:46)
[2019-05-26] MEDS: FLUDROCORTISONE ACETATE 0.1 MG TABLET( FLORINEF) GT SCH (08:47)
[2019-05-26] MEDS: FOLIC ACID 1 MG TABLET GT SCH (08:47)
[2019-05-26] MEDS: GEMFIBROZIL 600 MG TABLET (LOPID) GT SCH ×2 (08:47→21:33)
[2019-05-26] MEDS: CITRIC ACID/SODIUM CITRATE 30 ML UDC GT SCH ×3 (08:47→21:34)
[2019-05-26] MEDS: CHOLECALCIFEROL (VITAMIN D3) 2,000 UNIT TABLET GT SCH (08:47)
[2019-05-26] MEDS: PARoxetine HCL 20 MG TABLET GT SCH ×2 (08:47→21:33)
[2019-05-26] MEDS: METOPROLOL TARTRATE 50 MG TABLET GT SCH ×2 (08:48→21:33)
[2019-05-26] MEDS: ENOXAPARIN SODIUM 40 MG/0.4 ML SYRINGE SUBCUT SCH (08:49)
[2019-05-26] MEDS: NYSTATIN 15 GM TOPICAL POWDER TP SCH (08:50)
[2019-05-26] MEDS: LOPERAMIDE HCL 2 MG CAPSULE GT SCH (08:51)
--- NOTE | 2019-05-26 09:00 | NUR ---
Round Dr. Goldberg at bedside assessing patient, physician entered orders.
[2019-05-26] MEDS ORDERED: POTASSIUM CHLORIDE 20 MEQ/PKT PACKET GT ONE (09:15)
--- NOTE | 2019-05-26 10:55 | NUR ---
Round Dr. Lerma at bedside assessing patient, physician entered orders.
--- NOTE | 2019-05-26 11:30 | NUR ---
Nutrition F/U RD reviewed pt's current EMR record including diet Hx, physician notes, nursing notes, pertinent labs/meds/procedures, care trends, and care activity. 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 Current Diet Order/Nutrition Support: Vital AF 1.2 at 45 ml/hr, Banatrol BID, Free Water Flush: 150 ml Q6h via GT x4 days Subjective Info: Pt seen resting in bed earlier today, intubated on vent w/ TF infusing Vital AF 1.2 at 45 ml/hr -- 204 ml infused, providing 245 kcal. Per RN, pt has been tolerating TF well, no residuals, and possible plans for extubation today. RD clarified TF order w/ Banatrol TID and water flush 150 ml Q6h -- RN acknowledged. Pt continues w/ flexiseal w/ loose stool -- 200 ml noted today 05/26/19. Current TF regimen is adequate/appropriate. NEW Estimated Energy Expenditure (kcals/day) -- Minute Volume: 6.3/Temperature: 37.9 degrees Celsius 1519 kcal/day (PSU for REE d/t critical illness on vent support) NEW Estimated Protein Required (g/day) 60-80 gm/day (1.5-2 gm/kg IBW for elevated Renal labs/sepsis) Estimated Fluid Required (l/day) 1.4 L/day (30 ml/kg CBW for diarrhea) Problem/Etiology/Signs/Symptoms Altered GI function r/t medication AEB flagyl and reports of diarrhea per nursing staff. *possibly ongoing Expected Outcomes/Goals Monitor EN support and intake w/ goal of pt meeting at least 75% of estimated nutritional needs, labs trending WNL, normal GI function, skin integrity/wt maintenance. Dietitian Recommendations * Recommend continuing Vital AF 1.2 at 45 ml/hr, Banatrol BID, Free Water Flush: 150 ml Q6h via GT Provides: 1296 kcal/day, 81 gm protein/day, and 1476 ml free water/day Meets: 85% of estimated caloric needs and 101% of upper end of estimated protein needs * Consider ST swallow eval after extubation -- pt had been on pureed diet for oral gratification prior to intubation Follow Up High Risk: F/U in 2-3 days
--- NOTE | 2019-05-26 11:35 | NUR ---
Dietitian Recommendations * Recommend continuing Vital AF 1.2 at 45 ml/hr, Banatrol BID, Free Water Flush: 150 ml Q6h via GT Provides: 1296 kcal/day, 81 gm protein/day, and 1476 ml free water/day Meets: 85% of estimated caloric needs and 101% of upper end of estimated protein needs * Consider ST swallow eval after extubation -- pt had been on pureed diet for oral gratification prior to intubation LP, RD Please refer to Nutrition F/U for details.
[2019-05-26] MEDS: cefTRIAXone 1 GM in D5W 50 ML IV SCH (11:38)
[2019-05-26] MEDS: SOD FERRIC GLUC COMPLEX/SUC 125 MG in NS 100 ML IV SCH (11:40)
--- NOTE | 2019-05-26 11:55 | NUR ---
RT NOTES Per Dr Lerma's order, pt was extubated and placed on 3L NC. No adverse reactions noted. Will monitor pt. H.R 115 R.R 25 Saturation 93%. No distress noted. RN at bedside.
--- NOTE | 2019-05-26 12:00 | NUR ---
Nursing Note Patient was extubated by RT per Dr. Lerma's orders. Patient placed on 3L NC to keep saturation above 88%. Patient's restraints taken off concurrently. Patient tolerated procedure well, in no apparent distress. Current oxygen saturation is 96% on 3L NC.
[2019-05-26] MEDS: ACETAMINOPHEN 650 MG/20.3 ML UDC GT PRN ×2 (12:35→21:37)
--- NOTE | 2019-05-26 13:15 | NUR ---
MD Round Dr. Lerma at bedside assessing patient, no new orders given
--- NOTE | 2019-05-26 15:00 | NUR ---
Round Dr. Peterson at bedside assessing patient, physician entered orders
[2019-05-26] MEDS: 0.45% NACL 1,000 ML IV SCH (15:12)
--- NOTE | 2019-05-26 17:00 | NUR ---
Nursing Note Patient given CHG bath, linens changed, and dressing changed. Patient turned for comfort, patient tolerated well.
--- NOTE | 2019-05-26 18:00 | NUR ---
MD Round Dr. Hussein at bedside assessing patient, no new orders
--- NOTE | 2019-05-26 19:05 | NUR ---
PM ASSESSMENT Pt in bed with eyes open resting comfortably, no signs of acute distress or discomfort noted. Pt on 3L NC, tolerating well with O2 sats @ 94% and even and unlabored breathing. Pt has YURI picc infusing IVF at this time. PICC line dressing c/d/i. Gtube noted infusing tubefeeding. Lema cath noted draining urine to gravity. Bed is locked and in lowest position, call light within reach, will cont to monitor pt.
--- NOTE | 2019-05-26 19:25 | NUR ---
Closing Note Patient report given to nightshift nurse via SBAR communication
[2019-05-26] MEDS: LATANOPROST 2.5 ML DROPS (XALATAN) OP SCH (21:34)
[2019-05-26] MEDS: HYDROCORTISONE 1%, 28.35 GM TOPICAL CREAM TP SCH (21:34)
[2019-05-26] MEDS: EMOLLIENT COMBINATION NO.73 78 GM CREAM..G. TP SCH (21:35)
[2019-05-27] VITALS (24 sets, daily range): BP systolic 130–169
--- NOTE | 2019-05-27 | NUR ---
Pt in bed with eyes closed resting comfortably. No signs of acute distress or discomfort noted. Bed is locked and in lowest position, call light within reach, will cont to monitor pt.
--- NOTE | 2019-05-27 03:00 | NUR ---
Pt in bed with eyes closed resting comfortably with even and unlabored breathing. No signs of acute distress or discomfort noted. Bed is locked and in lowest position, call light within reach, will cont to monitor pt.
[2019-05-27] MEDS: LEVOTHYROXINE SODIUM 0.025 MG TABLET GT SCH (05:03)
[2019-05-27] MEDS: DILTIAZEM HCL 90 MG TABLET GT SCH ×3 (05:03→17:10)
[2019-05-27] MEDS: INSULIN REGULAR, HUMAN 100 UNITS/ML, 10 ML VIAL (humuLIN R) SUBCUT PRN ×4 (06:04→21:22)
[2019-05-27 06:37] LABS: BASOPHILS # (AUTO) 0.2 K/uL (0.0-0.2); BASOPHILS % (AUTO) 1.3 % (0.0-2.0); EOSINOPHILS # (AUTO) 0.3 K/uL (0.0-0.4); EOSINOPHILS % (AUTO) 2.4 % (0.0-4.0); HEMOGLOBIN 9.9 g/dL (14.0-18.0); LYMPHOCYTES # (AUTO) 4.7 K/uL (1.0-5.5); LYMPHOCYTES % (AUTO) 34.1 % (20.5-51.5); MEAN CORPUSCULAR HEMOGLOBIN 32 pg (27-31); MEAN CORPUSCULAR HGB CONC 34 % (32-36); MEAN CORPUSCULAR VOLUME 93 fL (79.0-98.0); MONOCYTES # (AUTO) 1.2 K/uL (0.0-1.0); MONOCYTES % (AUTO) 8.5 % (1.7-9.3); NEUTROPHILS # (AUTO) 7.4 K/uL (1.8-7.7); NEUTROPHILS % (AUTO) 53.7 % (40.0-70.0); RED BLOOD CELL COUNT(AUTO) 3.11 MIL/uL (4.2-6.2); RED CELL DISTRIBUTION WIDTH 17.1 % (9.0-15.0); WHITE BLOOD COUNT (AUTO) 13.8 K/uL (4.8-10.8)
--- NOTE | 2019-05-27 07:05 | NUR ---
ENDORSEMENT Report given to oncoming dayshift RN using SBAR format and pt care was endorsed, no signs of acute distress or discomfort noted.
--- NOTE | 2019-05-27 07:20 | NUR ---
Round Dr. Goldberg at bedside assessing patient, no new orders
--- NOTE | 2019-05-27 07:25 | NUR ---
Opening Note Received patient report from endorsing nightshift nurse via SBAR communication
[2019-05-27 07:41] LABS: ALBUMIN 1.8 g/dL (3.4-4.8); CALCIUM 9.1 mg/dL (8.4-11.0); CREATININE 0.94 mg/dL (0.55-1.30); PHOSPHORUS 3.6 mg/dL (2.7-4.5); POTASSIUM 3.4 mmol/L (3.5-5.1); TOTAL BILIRUBIN 0.2 mg/dL (0.0-1.0)
[2019-05-27] MEDS: CHOLESTYRAMINE/SUCROSE 4 GM/PACKET PO SCH ×2 (08:11→21:16)
[2019-05-27] MEDS: GEMFIBROZIL 600 MG TABLET (LOPID) GT SCH ×2 (08:12→21:05)
[2019-05-27] MEDS: PANTOPRAZOLE SODIUM 40 MG/VIAL (PROTONIX) IVP SCH (08:12)
[2019-05-27] MEDS: BACLOFEN 10 MG TABLET GT SCH ×3 (08:12→21:05)
[2019-05-27] MEDS: FUROSEMIDE 20 MG/2 ML VIAL IVP SCH (08:12)
[2019-05-27] MEDS: PARoxetine HCL 20 MG TABLET GT SCH ×2 (08:12→21:06)
[2019-05-27] MEDS: METOPROLOL TARTRATE 50 MG TABLET GT SCH ×2 (08:12→21:07)
[2019-05-27] MEDS: FLUDROCORTISONE ACETATE 0.1 MG TABLET( FLORINEF) GT SCH (08:13)
[2019-05-27] MEDS: CITRIC ACID/SODIUM CITRATE 30 ML UDC GT SCH ×3 (08:13→21:09)
[2019-05-27] MEDS: CHOLECALCIFEROL (VITAMIN D3) 2,000 UNIT TABLET GT SCH (08:13)
[2019-05-27] MEDS: HYDROCORTISONE 10 MG TABLET (CORTEF) GT SCH (08:13)
[2019-05-27] MEDS: VALPROIC ACID ORAL SYRUP 250 MG/5 ML UDC GT SCH ×3 (08:13→21:08)
[2019-05-27] MEDS: FOLIC ACID 1 MG TABLET GT SCH (08:13)
[2019-05-27] MEDS: DIPHENHYDRAMINE HCL 12.5 MG/5 ML UDC GT SCH (08:13)
[2019-05-27] MEDS: LOPERAMIDE HCL 2 MG CAPSULE GT PRN (08:13)
[2019-05-27] MEDS: ENOXAPARIN SODIUM 40 MG/0.4 ML SYRINGE SUBCUT SCH (08:14)
--- NOTE | 2019-05-27 08:20 | NUR ---
Round Dr. Yeager at bedside to see patient, physician entered orders.
[2019-05-27] MEDS: NYSTATIN 15 GM TOPICAL POWDER TP SCH (08:36)
--- NOTE | 2019-05-27 08:45 | NUR ---
MD Round Dr. Winn at bedside assessing patient, physician entered orders
--- NOTE | 2019-05-27 09:00 | NUR ---
MD Round Dr. Suarez at bedside assessing patient, physician entered orders
[2019-05-27 11:50] LABS: PLATELET COUNT (AUTO) 913 K/uL (130-430)
[2019-05-27] MEDS: cefTRIAXone 1 GM in D5W 50 ML IV SCH (11:53)
[2019-05-27] MEDS: SOD FERRIC GLUC COMPLEX/SUC 125 MG in NS 100 ML IV SCH (11:54)
[2019-05-27] MEDS: 0.45% NACL 1,000 ML IV SCH (14:16)
--- NOTE | 2019-05-27 14:45 | NUR ---
Nursing Note Patient given CHG bath, skin care performed, terence-area and laureano cleaned, dressing changed, and linens changed. Patient tolerated well
--- NOTE | 2019-05-27 16:00 | NUR ---
Round Dr. Peterson at bedside assessing patient, physician entered orders
[2019-05-27] MEDS: cloNIDine HCL 0.1 MG TABLET GT PRN (17:09)
--- NOTE | 2019-05-27 19:24 | NUR ---
Closing Note Patient report given to nightshift nurse via SBAR communication
--- NOTE | 2019-05-27 19:25 | NUR ---
OPENING NOTE SBAR REPORT RECEIVED FROM LEONIE KIM. CARE ASSUMED. PT LAYING IN BED ANO X 1. PT ON 3L NASAL CANULA. O2 SATURATION 93%. PT SINUS TACHYCARDIA ON MONITOR. PT HAS LEFT UPPER EXTREMITY PICC LINE RUNNING NS @ 30ML/HR. PT HAS EDEMA TO RIGHT HAND AND BILATERAL LOWER EXTREMITIES. PT HAS G TUBE RUNNING VITAL AF @ 45 CC/HR. BOWEL SOUNDS ACTIVE IN ALL QUADRANTS. PT HAS MENDOZA CATHETER FLOWING TO GRAVITY. URINE YELLOW AND CLEAR. PT HAS FLEXI-SEAL IN PLACE. PT IS CONTRACTED TO BILATERAL LOWER EXTREMITIES AND RIGHT UPPER EXTREMITY. PT HAS AMPUTATION OF RIGHT FIFTH DIGIT. BED LOCKED IN LOWEST POSITION. SAFETY PRECAUTIONS IN PLACE. CALL LIGHT WITH REACH. WILL CONTINUE TO MONITOR.
[2019-05-27] MEDS: LATANOPROST 2.5 ML DROPS (XALATAN) OP SCH (21:10)
[2019-05-27] MEDS: HYDROCORTISONE 1%, 28.35 GM TOPICAL CREAM TP SCH (21:11)
[2019-05-27] MEDS: EMOLLIENT COMBINATION NO.73 78 GM CREAM..G. TP SCH (21:11)
[2019-05-28] VITALS (18 sets, daily range): BP systolic 111–156
[2019-05-28] MEDS: DILTIAZEM HCL 90 MG TABLET GT SCH ×5 (00:07→23:36)
[2019-05-28] MEDS: cloNIDine HCL 0.1 MG TABLET GT PRN ×2 (00:11→06:19)
[2019-05-28 06:03] LABS: BASOPHILS # (AUTO) 0.3 K/uL (0.0-0.2); BASOPHILS % (AUTO) 1.9 % (0.0-2.0); EOSINOPHILS # (AUTO) 0.3 K/uL (0.0-0.4); EOSINOPHILS % (AUTO) 2.2 % (0.0-4.0); HEMATOCRIT 26.3 % (36-54); HEMOGLOBIN 8.8 g/dL (14.0-18.0); LYMPHOCYTES # (AUTO) 4.5 K/uL (1.0-5.5); LYMPHOCYTES % (AUTO) 32.2 % (20.5-51.5); MEAN CORPUSCULAR HEMOGLOBIN 31 pg (27-31); MEAN CORPUSCULAR HGB CONC 34 % (32-36); MEAN CORPUSCULAR VOLUME 94 fL (79.0-98.0); MONOCYTES # (AUTO) 1.2 K/uL (0.0-1.0); MONOCYTES % (AUTO) 8.6 % (1.7-9.3); NEUTROPHILS # (AUTO) 7.7 K/uL (1.8-7.7); RED BLOOD CELL COUNT(AUTO) 2.81 MIL/uL (4.2-6.2); RED CELL DISTRIBUTION WIDTH 17.2 % (9.0-15.0)
[2019-05-28 06:17] LABS: ALANINE AMINOTRANSFERASE 12 U/L (12-78); ALBUMIN 1.7 g/dL (3.4-4.8); ASPARTATE AMINOTRANSFERASE 22 U/L (10-37); CALCIUM 8.9 mg/dL (8.4-11.0); CHLORIDE 99 mmol/L (98-107); CREATININE 0.97 mg/dL (0.55-1.30); GLUCOSE 295 mg/dL (70-99); POTASSIUM 3.2 mmol/L (3.5-5.1); SODIUM SERUM 133 mmol/L (136-145); TOTAL BILIRUBIN 0.2 mg/dL (0.0-1.0); UREA NITROGEN, BLOOD 19 mg/dL (8-21)
[2019-05-28] MEDS: LEVOTHYROXINE SODIUM 0.025 MG TABLET GT SCH (06:19)
[2019-05-28] MEDS: INSULIN REGULAR, HUMAN 100 UNITS/ML, 10 ML VIAL (humuLIN R) SUBCUT PRN ×3 (06:23→17:24)
[2019-05-28 06:25] LABS: PLATELET COUNT (AUTO) 786 K/uL (130-430)
[2019-05-28 06:40] LABS: ANION GAP < 3 (5-15); GFR AFRICAN AMERICAN 120 mL/min (>90)
--- NOTE | 2019-05-28 07:23 | NUR ---
CLOSING NOTE PT LAYING IN BED. NO SIGNS OR SYMPTOMS OF DISTRESS NOTED. SBAR REPORT GIVEN TO ERWIN KIM. CARE ENDORSED.
--- NOTE | 2019-05-28 07:30 | NUR ---
Opening Note Patient received resting in bed at this time connected to online content coordinator with sinus tach. Patient on 3L oxygen via nasal cannula breathing evenly and unlabored. Patient has a PICC line receiving fluids. Patient has a g-tube receiving tubefeeding. Patient has a laureano catheter in place. Patient also has a rectabl tube in place. Seizure precautions enforced. Safety precautions enforced. Call light in reach.
[2019-05-28] MEDS ORDERED: POTASSIUM CHLORIDE 40 MEQ in NS 250 ML IV ONE (09:15)
[2019-05-28] MEDS: CITRIC ACID/SODIUM CITRATE 30 ML UDC GT SCH ×3 (09:27→21:27)
[2019-05-28] MEDS: VALPROIC ACID ORAL SYRUP 250 MG/5 ML UDC GT SCH ×3 (09:27→21:28)
[2019-05-28] MEDS: CHOLESTYRAMINE/SUCROSE 4 GM/PACKET PO SCH ×2 (09:29→21:28)
[2019-05-28] MEDS: NYSTATIN 15 GM TOPICAL POWDER TP SCH (09:29)
[2019-05-28] MEDS: FUROSEMIDE 20 MG/2 ML VIAL IVP SCH (09:30)
[2019-05-28] MEDS: DIPHENHYDRAMINE HCL 12.5 MG/5 ML UDC GT SCH (09:30)
[2019-05-28] MEDS: PARoxetine HCL 20 MG TABLET GT SCH ×2 (09:31→21:28)
[2019-05-28] MEDS: FOLIC ACID 1 MG TABLET GT SCH (09:31)
[2019-05-28] MEDS: PANTOPRAZOLE SODIUM 40 MG/VIAL (PROTONIX) IVP SCH (09:31)
[2019-05-28] MEDS: GEMFIBROZIL 600 MG TABLET (LOPID) GT SCH ×2 (09:31→21:28)
[2019-05-28] MEDS: BACLOFEN 10 MG TABLET GT SCH ×3 (09:32→21:28)
[2019-05-28] MEDS: FLUDROCORTISONE ACETATE 0.1 MG TABLET( FLORINEF) GT SCH (09:32)
[2019-05-28] MEDS: CHOLECALCIFEROL (VITAMIN D3) 2,000 UNIT TABLET GT SCH (09:32)
[2019-05-28] MEDS: HYDROCORTISONE 10 MG TABLET (CORTEF) GT SCH (09:35)
[2019-05-28] MEDS: ENOXAPARIN SODIUM 40 MG/0.4 ML SYRINGE SUBCUT SCH (09:52)
[2019-05-28] MEDS: METOPROLOL TARTRATE 50 MG TABLET GT SCH ×2 (10:43→21:29)
--- NOTE | 2019-05-28 10:51 | NUR ---
Telemetry status Patient on telemetry status at this time. Awaiting for bed availability.
[2019-05-28 10:54] LABS: NEUTROPHILS % (AUTO) 55.1 % (40.0-70.0)
[2019-05-28] MEDS: SOD FERRIC GLUC COMPLEX/SUC 125 MG in NS 100 ML IV SCH (11:26)
[2019-05-28] MEDS: cefTRIAXone 1 GM in D5W 50 ML IV SCH (11:27)
--- NOTE | 2019-05-28 12:00 | NUR ---
RN Rounds Patient sleeping at this time with mother at bedside. Patient in no signs of distress. Safety and seizure precautions enforced.
[2019-05-28] MEDS: 0.45% NACL 1,000 ML IV SCH (13:30)
[2019-05-28] MEDS ORDERED: LEVALBUTEROL HCL 0.63 MG/3 ML VIAL.NEB INH ONE (14:45)
[2019-05-28] MEDS ORDERED: methylPREDNISolone SOD SUCC 40 MG/ML VIAL IVP ONE (14:45)
[2019-05-28] MEDS ORDERED: FUROSEMIDE 20 MG/2 ML VIAL IVP ONE (15:30)
--- NOTE | 2019-05-28 16:30 | NUR ---
Dr. Lerma order to keep patient in ICU at this time.
[2019-05-28] MEDS: LEVALBUTEROL HCL 0.63 MG/3 ML VIAL.NEB INH SCH (19:00)
--- NOTE | 2019-05-28 19:49 | NUR ---
Closing Note Patient endorsed to clinical reimbursement specialist RN using SBAR format. Patient in no signs of distress at this time. Patient remains in ICU for close monitoring.
--- NOTE | 2019-05-28 19:55 | NUR ---
Opening Note Pt in bed. Alert to person, but unable to follow commands. Pt is SR/ST on the monitor. Pt on 5L NC, saturating in the mid 90s. No s/s of distress noted. Pt has YURI PICC Line in place, and RAC 18g. Pt has Ns TKO running through the PICC. Pt has Vital AF that has been stopped d/t ABD distension and firmness. Upon assessment, Pt's ABD less firm, but remains distended. No residual noted from G-tube. TBF to be restarted. Pt has laureano catheter in place and rectal seal in place as well draining to gravity. Bed locked in lowest position, call light in reach and safety precautions in place. Will continue to monitor.
[2019-05-28] MEDS: LATANOPROST 2.5 ML DROPS (XALATAN) OP SCH (21:27)
[2019-05-28] MEDS: EMOLLIENT COMBINATION NO.73 78 GM CREAM..G. TP SCH (21:29)
[2019-05-28] MEDS: HYDROCORTISONE 1%, 28.35 GM TOPICAL CREAM TP SCH (21:29)
--- NOTE | 2019-05-28 23:16 | NUR ---
RN Rounds pt in bed, asleep. No s/s of distress noted. Pt tolerating NC well. Feeding restarted and Pt tolerating well. No residual noted. VSS w/ HR remaining Tachy. No fever noted. Will continue to monitor.
[2019-05-29] VITALS (21 sets, daily range): BP systolic 130–188
[2019-05-29] MEDS: LEVALBUTEROL HCL 0.63 MG/3 ML VIAL.NEB INH SCH ×4 (01:00→19:00)
--- NOTE | 2019-05-29 03:48 | NUR ---
RN Rounds Pt in bed asleep, no s/s of distress noted. Pt tolerating O2 well. VSS, w/ HR remaining elevated. Will continue to monitor.
[2019-05-29] MEDS: LEVOTHYROXINE SODIUM 0.025 MG TABLET GT SCH (05:31)
[2019-05-29] MEDS: DILTIAZEM HCL 90 MG TABLET GT SCH ×3 (05:31→17:57)
[2019-05-29 06:24] LABS: BASOPHILS # (AUTO) 0.1 K/uL (0.0-0.2); BASOPHILS % (AUTO) 0.7 % (0.0-2.0); HEMOGLOBIN 8.9 g/dL (14.0-18.0); LYMPHOCYTES # (AUTO) 1.8 K/uL (1.0-5.5); LYMPHOCYTES % (AUTO) 13.5 % (20.5-51.5); MEAN CORPUSCULAR HEMOGLOBIN 31 pg (27-31); MEAN CORPUSCULAR HGB CONC 33 % (32-36); MEAN CORPUSCULAR VOLUME 94 fL (79.0-98.0); MONOCYTES # (AUTO) 0.3 K/uL (0.0-1.0); MONOCYTES % (AUTO) 2.1 % (1.7-9.3); NEUTROPHILS # (AUTO) 11.3 K/uL (1.8-7.7); NEUTROPHILS % (AUTO) 83.7 % (40.0-70.0); RED BLOOD CELL COUNT(AUTO) 2.86 MIL/uL (4.2-6.2); RED CELL DISTRIBUTION WIDTH 17.7 % (9.0-15.0); WHITE BLOOD COUNT (AUTO) 13.5 K/uL (4.8-10.8)
[2019-05-29] MEDS: INSULIN REGULAR, HUMAN 100 UNITS/ML, 10 ML VIAL (humuLIN R) SUBCUT PRN ×4 (06:26→21:48)
--- NOTE | 2019-05-29 06:30 | NUR ---
Closing Note Pt in bed asleep. ST on the monitor. Pt on Nc @5L. No s/s of distress noted. Pt saturating in the low- mid 90s. Pt has YURI PICC Line in place w/ IVF running. G-tube in place. Feeding has been finished. Pt tolerated well. No residual noted. ABD remains distended, but less firm. Pt has laureano catheter in place draining urine to gravity. Pt also has flexiseal in place draining loose stool to gravity. No leakage noted. Bed locked in lowest position, call light in reach, and safety precautions in place. Will endorse to oncoming RN.
[2019-05-29 06:46] LABS: ALBUMIN 1.9 g/dL (3.4-4.8); CALCIUM 9.2 mg/dL (8.4-11.0); CREATININE 1.12 mg/dL (0.55-1.30); POTASSIUM 4.3 mmol/L (3.5-5.1); TOTAL BILIRUBIN 0.2 mg/dL (0.0-1.0)
--- NOTE | 2019-05-29 07:05 | NUR ---
Opening Note Patient received resting at this time connected to battery test engineer with no signs of distress. Patient on 5L oxygen via nasal cannula breathing evenly and unlabored. Patient has a PICC line receiving fluids. Patient has a g-tube with tubefeeding. Patient has a laureano catheter draining urine. Patient also has a rectal tube draining loose stools. Seizure and safety precautions enforced.
--- NOTE | 2019-05-29 07:20 | NUR ---
Endorsement Report given to oncoming RN at bedside via SBAR approach.
[2019-05-29 07:31] LABS: PLATELET COUNT (AUTO) 861 K/uL (130-430)
[2019-05-29] MEDS: CITRIC ACID/SODIUM CITRATE 30 ML UDC GT SCH ×3 (08:00→21:42)
[2019-05-29] MEDS: PANTOPRAZOLE SODIUM 40 MG/VIAL (PROTONIX) IVP SCH (08:00)
[2019-05-29] MEDS: FUROSEMIDE 20 MG/2 ML VIAL IVP SCH (08:01)
[2019-05-29] MEDS: CHOLESTYRAMINE/SUCROSE 4 GM/PACKET PO SCH (08:01)
[2019-05-29] MEDS: DIPHENHYDRAMINE HCL 12.5 MG/5 ML UDC GT SCH (08:01)
[2019-05-29] MEDS: VALPROIC ACID ORAL SYRUP 250 MG/5 ML UDC GT SCH ×3 (08:01→21:41)
[2019-05-29] MEDS: GEMFIBROZIL 600 MG TABLET (LOPID) GT SCH ×2 (08:01→21:41)
[2019-05-29] MEDS: METOPROLOL TARTRATE 50 MG TABLET GT SCH ×2 (08:01→21:42)
[2019-05-29] MEDS: FOLIC ACID 1 MG TABLET GT SCH (08:02)
[2019-05-29] MEDS: FLUDROCORTISONE ACETATE 0.1 MG TABLET( FLORINEF) GT SCH (08:02)
[2019-05-29] MEDS: PARoxetine HCL 20 MG TABLET GT SCH ×2 (08:02→21:42)
[2019-05-29] MEDS: BACLOFEN 10 MG TABLET GT SCH ×3 (08:02→21:41)
[2019-05-29] MEDS: CHOLECALCIFEROL (VITAMIN D3) 2,000 UNIT TABLET GT SCH (08:02)
[2019-05-29] MEDS: HYDROCORTISONE 10 MG TABLET (CORTEF) GT SCH (08:02)
[2019-05-29] MEDS: ENOXAPARIN SODIUM 40 MG/0.4 ML SYRINGE SUBCUT SCH (08:03)
[2019-05-29] MEDS: NYSTATIN 15 GM TOPICAL POWDER TP SCH (08:03)
--- NOTE | 2019-05-29 09:05 | NUR ---
MD Rounds Dr. Yeager at bedside for examination.
--- NOTE | 2019-05-29 09:10 | NUR ---
MD Rounds Dr. Goldberg at bedside for examination.
[2019-05-29] MEDS ORDERED: FUROSEMIDE 20 MG/2 ML VIAL IVP ONE (10:15)
--- NOTE | 2019-05-29 10:30 | NUR ---
MD Rounds Dr. Suarez at bedside for examination.
[2019-05-29] MEDS: cefTRIAXone 1 GM in D5W 50 ML IV SCH (11:53)
--- NOTE | 2019-05-29 12:52 | NUR ---
Patient oxygen saturation decreased to 80-85%, patient placed on non-rebreather mask at 100% at this time. Patient oxygen levels 90-92%. Patient resting in bed with mother at bedside.
[2019-05-29] MEDS: 0.45% NACL 1,000 ML IV SCH (13:30)
--- NOTE | 2019-05-29 14:30 | NUR ---
Nutrition F/U RD reviewed pt's current EMR record including diet Hx, physician notes, nursing notes, pertinent labs/meds/procedures, care trends, and care activity. 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 Current Diet Order/Nutrition Support: Vital AF 1.2 at 45 ml/hr, Banatrol BID, Free Water Flush: 150 ml Q6h via GT x7 days Subjective Info: Pt seen resting in bed earlier today, w/ TF infusing Vital AF 1.2 at 45 ml/hr -- 21 ml infused, providing 25 kcal. Per RN, pt has been tolerating TF well, no residuals. Pt was extubated 05/26/[address] clarified TF order w/ Banatrol TID and water flush 150 ml Q6h -- RN acknowledged. Pt continues w/ flexiseal w/ loose stool -- 300 ml noted today 05/29/19. Current TF regimen is adequate/appropriate. NEW Estimated Energy Expenditure (kcals/day) -- 0753-9257 kcal/day (PSU for REE d/t critical illness on vent support) NEW Estimated Protein Required (g/day) 60-80 gm/day (1.5-2 gm/kg IBW forsepsis) Estimated Fluid Required (l/day) 1.4 L/day (30 ml/kg CBW for diarrhea) Problem/Etiology/Signs/Symptoms Altered GI function r/t medication AEB flagyl and reports of diarrhea per nursing staff. *possibly ongoing Expected Outcomes/Goals Monitor EN support and intake w/ goal of pt meeting at least 75% of estimated nutritional needs, labs trending WNL, normal GI function, skin integrity/wt maintenance. Dietitian Recommendations * Recommend continuing Vital AF 1.2 at 45 ml/hr, Banatrol BID, Free Water Flush: 150 ml Q6h via GT Provides: 1296 kcal/day, 81 gm protein/day, and 1476 ml free water/day Meets: 108% of lower end of estimated caloric needs and 101% of upper end of estimated protein needs * Consider ST swallow eval -- pt had been on pureed diet for oral gratification prior to intubation Follow Up High Risk: F/U in 2-3 days
--- NOTE | 2019-05-29 14:35 | NUR ---
Dietitian Recommendations * Recommend continuing Vital AF 1.2 at 45 ml/hr, Banatrol BID, Free Water Flush: 150 ml Q6h via GT Provides: 1296 kcal/day, 81 gm protein/day, and 1476 ml free water/day Meets: 108% of lower end of estimated caloric needs and 101% of upper end of estimated protein needs * Consider ST swallow eval -- pt had been on pureed diet for oral gratification prior to intubation LP, RD Please refer to Nutrition F/U for details.
--- NOTE | 2019-05-29 15:25 | NUR ---
MD Rounds Dr. Peterson at bedside for examination.
--- NOTE | 2019-05-29 15:40 | NUR ---
CHG CHG bath performed and linens changed. Patient tolerated well.
[2019-05-29] MEDS: NACL 0.9% 1,000 ML IV SCH (15:45)
--- NOTE | 2019-05-29 15:50 | NUR ---
MD Rounds Dr. Lerma at bedside for examination.
[2019-05-29] MEDS ORDERED: IOHEXOL 350 mgI/mL, 150 ML INFUS..BTL IV ONE (16:49)
--- NOTE | 2019-05-29 17:30 | NUR ---
MD Rounds Dr. Hussein at bedside for examination.
--- NOTE | 2019-05-29 17:45 | NUR ---
Called consult for Dr Glasgow spoke with Rey
--- NOTE | 2019-05-29 17:45 | NUR ---
Patient taken to radiology for CT of lungs.
--- NOTE | 2019-05-29 17:55 | NUR ---
Spoke with Dr. Amani. NORWOOD to visit patient tomorrow.
--- NOTE | 2019-05-29 18:00 | NUR ---
Patient returned to ICU 5 and connected to monitor. Patient not in distress.
--- NOTE | 2019-05-29 19:40 | NUR ---
Closing Notes Patient endorsed to metal spraying machine operator RN using SBAR format. No signs of distress noted.
--- NOTE | 2019-05-29 19:55 | NUR ---
Opening Note Pt in bed asleep.SR/ST on the monitor. Pt on 6L Oximizer noted. No s/s of distress noted. Pt has YURI PICC in place, Running IVF. Pt has g-tube in place running tubefeeding. No residual noted. Pt has Lema catheter in place, draining fluid to gravity. Pt has flexiseal in place. No leakage noted. Bed locked in lowest position, call light in reach, and safety precautions in place. Will continue to monitor.
[2019-05-29] MEDS: LATANOPROST 2.5 ML DROPS (XALATAN) OP SCH (21:41)
[2019-05-29] MEDS: EMOLLIENT COMBINATION NO.73 78 GM CREAM..G. TP SCH (21:43)
[2019-05-29] MEDS: HYDROCORTISONE 1%, 28.35 GM TOPICAL CREAM TP SCH (21:43)
[2019-05-29] MEDS: DILTIAZEM HCL 25 MG/5 ML VIAL IVP PRN (21:46)
[2019-05-30] VITALS (23 sets, daily range): BP systolic 114–180
[2019-05-30] MEDS: DILTIAZEM HCL 90 MG TABLET GT SCH ×4 (00:08→18:06)
[2019-05-30] MEDS: cloNIDine HCL 0.1 MG TABLET GT PRN ×3 (00:10→22:24)
--- NOTE | 2019-05-30 00:20 | NUR ---
RN Rounds Pt cleaned and repositioned, new linens applied. Pt tolerated well. PRN Medication given for elevated BP. Pt remains on 6L Oximizer. Will continue to monitor.
[2019-05-30] MEDS: LEVALBUTEROL HCL 0.63 MG/3 ML VIAL.NEB INH SCH ×4 (01:28→20:06)
--- NOTE | 2019-05-30 04:45 | NUR ---
RN rounds Pt in bed, O2 saturations began to decrease to the 70-80s. Pt changed to non-rebreather mask. Pt tolerating well now. O2 saturations in the 90s. Will continue to monitor.
[2019-05-30] MEDS: LEVOTHYROXINE SODIUM 0.025 MG TABLET GT SCH (05:37)
[2019-05-30] MEDS: ACETAMINOPHEN 650 MG/20.3 ML UDC GT PRN ×3 (05:38→16:07)
[2019-05-30] MEDS: INSULIN REGULAR, HUMAN 100 UNITS/ML, 10 ML VIAL (humuLIN R) SUBCUT PRN ×4 (06:12→21:42)
[2019-05-30 06:46] LABS: BASOPHILS # (AUTO) 0.1 K/uL (0.0-0.2); BASOPHILS % (AUTO) 0.7 % (0.0-2.0); EOSINOPHILS % (AUTO) 0.1 % (0.0-4.0); HEMATOCRIT 28.6 % (36-54); HEMOGLOBIN 9.6 g/dL (14.0-18.0); LYMPHOCYTES % (AUTO) 17.9 % (20.5-51.5); MEAN CORPUSCULAR HEMOGLOBIN 32 pg (27-31); MEAN CORPUSCULAR HGB CONC 34 % (32-36); MEAN CORPUSCULAR VOLUME 95 fL (79.0-98.0); MONOCYTES # (AUTO) 1.3 K/uL (0.0-1.0); NEUTROPHILS # (AUTO) 12.3 K/uL (1.8-7.7); NEUTROPHILS % (AUTO) 73.3 % (40.0-70.0); RED BLOOD CELL COUNT(AUTO) 3.03 MIL/uL (4.2-6.2); RED CELL DISTRIBUTION WIDTH 17.7 % (9.0-15.0); WHITE BLOOD COUNT (AUTO) 16.7 K/uL (4.8-10.8)
[2019-05-30 07:09] LABS: CALCIUM 9.4 mg/dL (8.4-11.0); CREATININE 1.16 mg/dL (0.55-1.30); PHOSPHORUS 4.7 mg/dL (2.7-4.5); POTASSIUM 3.2 mmol/L (3.5-5.1)
--- NOTE | 2019-05-30 07:20 | NUR ---
Received report and patient from NOC shift, patient in no acute distress. Side rails x 3 up. Call light with in reach.
--- NOTE | 2019-05-30 07:25 | NUR ---
Endorsement Pt in bed asleep. ST on the monitor, Pt on 8L Oximizer. TF running, no residual noted. Pt has YURI PICC line running IVF, Pt has laureano catheter and flexiseal in place draining to gravity. No leakage noted. Pt temp @ 99.6. Report given to oncoming RN at bedside via SBAR approach.
[2019-05-30] MEDS: DILTIAZEM HCL 25 MG/5 ML VIAL IVP PRN ×2 (08:14→16:06)
--- NOTE | 2019-05-30 08:30 | NUR ---
Requested extra 1 time dose of acetaminophen 500 ml from MD Suarez due to temp of 101 F orders granted.
[2019-05-30] MEDS: CHOLECALCIFEROL (VITAMIN D3) 2,000 UNIT TABLET GT SCH (08:35)
[2019-05-30] MEDS: BACLOFEN 10 MG TABLET GT SCH ×3 (08:35→20:11)
[2019-05-30] MEDS: FUROSEMIDE 20 MG/2 ML VIAL IVP SCH (08:35)
[2019-05-30] MEDS: DIPHENHYDRAMINE HCL 12.5 MG/5 ML UDC GT SCH (08:35)
[2019-05-30] MEDS: LOPERAMIDE HCL 2 MG CAPSULE GT PRN ×2 (08:36→16:23)
[2019-05-30] MEDS: FOLIC ACID 1 MG TABLET GT SCH (08:36)
[2019-05-30] MEDS: PARoxetine HCL 20 MG TABLET GT SCH ×2 (08:36→20:11)
[2019-05-30] MEDS: METOPROLOL TARTRATE 50 MG TABLET GT SCH ×2 (08:36→20:12)
[2019-05-30] MEDS: GEMFIBROZIL 600 MG TABLET (LOPID) GT SCH ×2 (08:36→20:11)
[2019-05-30] MEDS: VALPROIC ACID ORAL SYRUP 250 MG/5 ML UDC GT SCH ×3 (08:37→20:10)
[2019-05-30] MEDS: FLUDROCORTISONE ACETATE 0.1 MG TABLET( FLORINEF) GT SCH (08:37)
[2019-05-30] MEDS: PANTOPRAZOLE SODIUM 40 MG/VIAL (PROTONIX) IVP SCH (08:37)
[2019-05-30] MEDS: CITRIC ACID/SODIUM CITRATE 30 ML UDC GT SCH ×3 (08:38→20:12)
[2019-05-30] MEDS: CHOLESTYRAMINE/SUCROSE 4 GM/PACKET GT SCH (08:39)
[2019-05-30] MEDS: NYSTATIN 15 GM TOPICAL POWDER TP SCH (08:39)
--- NOTE | 2019-05-30 08:59 | NUR ---
Dr. Suarez in to see pt. Orders left. He requested that ID be notified of new onset fever 101, elevated HR 140's. I requested a lactic acid and sepsis work up and Dr. Suarez declined.
[2019-05-30] MEDS ORDERED: HYDROCORTISONE 10 MG TABLET (CORTEF) GT SCH (09:00)
--- NOTE | 2019-05-30 09:10 | NUR ---
MD Montana made aware of temp of 101.0, orders received.
[2019-05-30 09:40] LABS: PLATELET COUNT (AUTO) 928 K/uL (130-430)
[2019-05-30] MEDS ORDERED: ACETAMINOPHEN 650 MG/20.3 ML UDC GT ONE (10:30)
[2019-05-30] MEDS ORDERED: INSULIN GLARGINE 100 UNITS/ML 10 ML VIAL SUBCUT ONE (10:53)
--- NOTE | 2019-05-30 11:18 | NUR ---
MD Peterson new order to renew ativan and morphine order. Orders renewed.
[2019-05-30] MEDS ORDERED: MORPHINE 2 MG/ML INJ. SYRINGE IVP PRN (11:30)
[2019-05-30] MEDS ORDERED: MORPHINE 2 MG/ML INJ. SYRINGE ONE (11:56)
[2019-05-30] MEDS ORDERED: metroNIDAZOLE 500 mg/NS 100 ML IV ONE (12:00)
[2019-05-30] MEDS: cefTRIAXone 1 GM in D5W 50 ML IV SCH (12:10)
[2019-05-30] MEDS: ENOXAPARIN SODIUM 40 MG/0.4 ML SYRINGE SUBCUT SCH (12:17)
[2019-05-30] MEDS: LORazepam 2 MG/ML VIAL IVP PRN (12:57)
[2019-05-30] MEDS: HYDROCORTISONE SOD SUCC 100 MG/2 ML VIAL IVP SCH ×2 (13:00→21:37)
--- NOTE | 2019-05-30 13:10 | NUR ---
RT NOTES- ATTEMPT TO COLLECT SPUTUM ATTEMPT TO NASOTRACHEAL SX/ COLLECT SPUTUM SAMPLE. HOWEVER PT HOLDS HIS BREATHS UNABLE TO PASS DOWN 12FR CATHETER. MINIMAL BLEED IN BOTH NARES. RN KEHINDE MADE AWARE.
[2019-05-30] MEDS ORDERED: POTASSIUM CHLORIDE 20 MEQ/PKT PACKET PO ONE (13:45)
[2019-05-30] MEDS: ACETYLCYSTEINE 20% 4 ML VIAL (RT) INH SCH ×2 (14:11→21:00)
--- NOTE | 2019-05-30 14:20 | NUR ---
RT NOTES- 100% NRBM PT FALLING ASLEEP AND DESATS TO 85%. PLACED ON 100% MASK FOR NOW. RN KEHINDE MADE AWARE.
[2019-05-30] MEDS ORDERED: FUROSEMIDE 20 MG TABLET GT ONE (14:30)
[2019-05-30] MEDS: NACL 0.9% 1,000 ML IV SCH (16:00)
[2019-05-30] MEDS: MORPHINE 2 MG/ML INJ. SYRINGE IVP PRN (16:02)
--- NOTE | 2019-05-30 19:20 | NUR ---
Gave report and patient to oncoming shift, patient in no acute distress. Side rails x 3 up. Call light with in reach.
--- NOTE | 2019-05-30 19:21 | NUR ---
Opening Note Pt in bed alert, but unable to track or follow commands. ST on the monitor. NRB mask in place @100%. Pt has YURI PICC line in place. No s/s of infiltration noted. Site is C/D/I. Pt has Lema catheter in place and flexiseal in place draining urine to gravity. Bed locked in lowest position, call light in reach, and safety precautions in place. Will continue to monitor.
[2019-05-30] MEDS: IPRATROPIUM BROM 0.5 MG/2.5 ML VIAL.NEB (ATROVENT) INH PRN (20:07)
[2019-05-30] MEDS: FUROSEMIDE 20 MG TABLET GT SCH (20:11)
[2019-05-30] MEDS: LATANOPROST 2.5 ML DROPS (XALATAN) OP SCH (20:12)
[2019-05-30] MEDS: HYDROCORTISONE 1%, 28.35 GM TOPICAL CREAM TP SCH (20:13)
[2019-05-30] MEDS: EMOLLIENT COMBINATION NO.73 78 GM CREAM..G. TP SCH (20:13)
[2019-05-30] MEDS: metroNIDAZOLE 500 mg/NS 100 ML IV SCH (20:14)
--- NOTE | 2019-05-30 21:05 | NUR ---
Endorsement Report given to oncoming RN at bedside via SBAR approach.
--- NOTE | 2019-05-30 21:10 | NUR ---
Opening Note Received patient report via SBAR from endorsing nurse
--- NOTE | 2019-05-30 22:45 | NUR ---
Nursing Note Patient cleaned and repositioned, PRN medication for elevated BP was given.
[2019-05-31] VITALS (23 sets, daily range): BP systolic 105–186
[2019-05-31] MEDS: DILTIAZEM HCL 90 MG TABLET GT SCH ×5 (00:21→23:45)
[2019-05-31] MEDS: LEVALBUTEROL HCL 0.63 MG/3 ML VIAL.NEB INH SCH ×4 (01:56→19:54)
--- NOTE | 2019-05-31 02:00 | NUR ---
Nursing Note Patient changed to venti mask at 50% by RT, patient O2 saturation between 88-92%.
--- NOTE | 2019-05-31 05:00 | NUR ---
Nursing Note Patient repositioned, cleaned, linens changed. Patient tolerated well
[2019-05-31] MEDS: LEVOTHYROXINE SODIUM 0.025 MG TABLET GT SCH (05:30)
[2019-05-31] MEDS: HYDROCORTISONE SOD SUCC 100 MG/2 ML VIAL IVP SCH ×2 (05:30→18:11)
--- NOTE | 2019-05-31 06:00 | NUR ---
Nursing Note Patient placed on simple mask at 10L by RT, O2 Saturation at 88-92%.
[2019-05-31] MEDS: INSULIN REGULAR, HUMAN 100 UNITS/ML, 10 ML VIAL (humuLIN R) SUBCUT PRN ×2 (06:13→11:22)
--- NOTE | 2019-05-31 07:05 | NUR ---
Opening Note Patient received resting in bed connected to mathematics education professor. Patient on 10L simple mask breathing evenly and unlabored. Patient has a PICC line receiving IV fluids. Patient has a g-tube receiving fluids. Patient has a laureano catheter draining urine and rectal tube draining loose stools. Patient on seizure precautions. Safety precautions enforced.
--- NOTE | 2019-05-31 07:12 | NUR ---
Closing Note Patient report given via SBAR communication to daysgaft nurse
[2019-05-31] MEDS: ACETYLCYSTEINE 20% 4 ML VIAL (RT) INH SCH ×3 (07:23→19:56)
[2019-05-31] MEDS: CITRIC ACID/SODIUM CITRATE 30 ML UDC GT SCH ×3 (08:18→21:36)
[2019-05-31] MEDS: CHOLESTYRAMINE/SUCROSE 4 GM/PACKET GT SCH (08:18)
[2019-05-31] MEDS: CHOLECALCIFEROL (VITAMIN D3) 2,000 UNIT TABLET GT SCH (08:19)
[2019-05-31] MEDS: PANTOPRAZOLE SODIUM 40 MG/VIAL (PROTONIX) IVP SCH (08:19)
[2019-05-31] MEDS: FLUDROCORTISONE ACETATE 0.1 MG TABLET( FLORINEF) GT SCH (08:19)
[2019-05-31] MEDS: GEMFIBROZIL 600 MG TABLET (LOPID) GT SCH ×2 (08:20→21:30)
[2019-05-31] MEDS: BACLOFEN 10 MG TABLET GT SCH ×3 (08:20→21:35)
[2019-05-31] MEDS: DIPHENHYDRAMINE HCL 12.5 MG/5 ML UDC GT SCH (08:20)
[2019-05-31] MEDS: VALPROIC ACID ORAL SYRUP 250 MG/5 ML UDC GT SCH ×3 (08:20→21:35)
[2019-05-31] MEDS: POTASSIUM CHLORIDE 20 MEQ/PKT PACKET PO SCH (08:20)
[2019-05-31] MEDS: FOLIC ACID 1 MG TABLET GT SCH (08:21)
[2019-05-31] MEDS: PARoxetine HCL 20 MG TABLET GT SCH ×2 (08:21→21:30)
[2019-05-31] MEDS: METOPROLOL TARTRATE 50 MG TABLET GT SCH ×2 (08:22→21:33)
[2019-05-31] MEDS: FUROSEMIDE 20 MG/2 ML VIAL IVP SCH (08:22)
[2019-05-31] MEDS: metroNIDAZOLE 500 mg/NS 100 ML IV SCH ×2 (08:24→21:33)
[2019-05-31] MEDS: FUROSEMIDE 20 MG TABLET GT SCH ×2 (08:24→21:35)
[2019-05-31] MEDS: ENOXAPARIN SODIUM 40 MG/0.4 ML SYRINGE SUBCUT SCH (08:25)
[2019-05-31] MEDS: NYSTATIN 15 GM TOPICAL POWDER TP SCH (08:29)
[2019-05-31] MEDS ORDERED: INSULIN GLARGINE 100 UNITS/ML 10 ML VIAL SUBCUT SCH (09:00)
--- NOTE | 2019-05-31 10:40 | NUR ---
RN Rounds Mother at bedside at this time. Patient in no signs of distress.
[2019-05-31] MEDS: cefTRIAXone 1 GM in D5W 50 ML IV SCH (11:17)
[2019-05-31] MEDS: ACETAMINOPHEN 650 MG/20.3 ML UDC GT PRN ×2 (13:25→18:10)
[2019-05-31] MEDS: LORazepam 2 MG/ML VIAL IVP PRN (13:25)
--- NOTE | 2019-05-31 14:30 | NUR ---
CHG CHG bath provided and linens changed. Patient tolerated well. No signs of distress noted.
--- NOTE | 2019-05-31 15:00 | NUR ---
PICC line dressing PICC line dressing changed using aseptic technique. Patient in no signs of distress.
[2019-05-31] MEDS: NACL 0.9% 1,000 ML IV SCH (15:45)
--- NOTE | 2019-05-31 16:00 | NUR ---
RN Rounds Patient being monitored. O2 saturation noted to be between 80%-85% at this time.
[2019-05-31] MEDS: DILTIAZEM HCL 25 MG/5 ML VIAL IVP PRN ×2 (17:24→20:05)
--- NOTE | 2019-05-31 17:30 | NUR ---
Dr. Suarez paged regarding increased heart rate. Per Dr. Suarez, continue to monitor patient. Cardizem IVP given per PRN order.
--- NOTE | 2019-05-31 19:29 | NUR ---
Closing Notes Patient endorsed to fast food shift supervisor RN using SBAR format. Patient in no signs of distress noted.
--- NOTE | 2019-05-31 20:00 | NUR ---
OPENS EYES SPON. DOES NOT FOLLOW COMMANDS. SPEECH GARBLED. ON O2 AT 100% NON-REBREATHER MASK. BREATH SOUNDS ESSENTIALLY CLEAR. POX 99%. BOWEL SOUNDS (+). ON GT FEEDING AT 45CC/HR. RESIDUAL CHECK 5CC. MENDOZA CATH PATENT DRAINING CLEAR SPENCER URINE TO GRAVITY. FLEXISEAL IN PLACE WITH LIQUID BROWN STOOL NOTED. CARDIZEM 10 MG IVP GIVEN FOR HIGH HR, CLONIDINE 0.1 MG GT GIVEN FOR HIGH BP. DAD T BEDSIDE VISITING.
[2019-05-31] MEDS: LATANOPROST 2.5 ML DROPS (XALATAN) OP SCH (21:36)
[2019-05-31] MEDS: EMOLLIENT COMBINATION NO.73 78 GM CREAM..G. TP SCH (21:37)
[2019-05-31] MEDS: HYDROCORTISONE 1%, 28.35 GM TOPICAL CREAM TP SCH (21:38)
--- NOTE | 2019-05-31 22:00 | NUR ---
REPOSITIONED. HS CARE RENDERED. BANATROL 1 PACKET GT GIVEN. GT FEEDING WITH VITAL AF 1.2 AT 45CC/HR.
[2019-06-01] VITALS (25 sets, daily range): BP systolic 108–187
--- NOTE | 2019-06-01 | NUR ---
SLEPT INTERMITTENTLY. ABLE TO ASK FOR WATER, SPEECH SLURRED. ICE CHIPS GIVEN. RESIDUAL CHECK 0. GT FLUSHED WITH 100CC H2O.
[2019-06-01] MEDS: LEVALBUTEROL HCL 0.63 MG/3 ML VIAL.NEB INH SCH ×2 (01:41→07:00)
--- NOTE | 2019-06-01 02:00 | NUR ---
OCCASIONALLY TAKES OFF O2 MASK, DESATURATES. INSTRUCTED NOT TO DO THAT, SEEMS TO UNDERSTAND.
--- NOTE | 2019-06-01 04:00 | NUR ---
SLEPT ON AND OFF. RESIDUAL CHECK 0. CLONIDINE 0.1 MG GT GIVEN FOR HIGH BP. CARDIZEM 10 MG IVP GIVEN FOR HIGH HR.
[2019-06-01] MEDS: DILTIAZEM HCL 25 MG/5 ML VIAL IVP PRN (04:16)
[2019-06-01] MEDS: cloNIDine HCL 0.1 MG TABLET GT PRN ×2 (04:17→14:22)
[2019-06-01] MEDS: HYDROCORTISONE SOD SUCC 100 MG/2 ML VIAL IVP SCH ×2 (05:44→21:12)
[2019-06-01] MEDS: LEVOTHYROXINE SODIUM 0.025 MG TABLET GT SCH (05:44)
[2019-06-01] MEDS: DILTIAZEM HCL 90 MG TABLET GT SCH ×3 (05:45→21:13)
--- NOTE | 2019-06-01 06:00 | NUR ---
DOZES ON AND OFF. ASKED FOR WATER, ICE CHIPS GIVEN. UO GOOD. FLEXISEAL INTACT, 650CC OUT. GT FLUSHED WITH 150CC H20. ACCU-CHEK 267, 4 UNITS REGULAR INSULIN SQ GIVEN PER SLIDING SCALE COV. REMAINS IN GUARDED CONDITION.
[2019-06-01] MEDS: INSULIN REGULAR, HUMAN 100 UNITS/ML, 10 ML VIAL (humuLIN R) SUBCUT PRN (06:13)
[2019-06-01 06:37] LABS: BASOPHILS # (AUTO) 0.2 K/uL (0.0-0.2); BASOPHILS % (AUTO) 0.5 % (0.0-2.0); HEMATOCRIT 27.3 % (36-54); HEMOGLOBIN 8.8 g/dL (14.0-18.0); LYMPHOCYTES # (AUTO) 2.4 K/uL (1.0-5.5); LYMPHOCYTES % (AUTO) 7.3 % (20.5-51.5); MEAN CORPUSCULAR HEMOGLOBIN 31 pg (27-31); MEAN CORPUSCULAR HGB CONC 32 % (32-36); MEAN CORPUSCULAR VOLUME 97 fL (79.0-98.0); MONOCYTES # (AUTO) 1.9 K/uL (0.0-1.0); MONOCYTES % (AUTO) 5.6 % (1.7-9.3); NEUTROPHILS # (AUTO) 29.1 K/uL (1.8-7.7); NEUTROPHILS % (AUTO) 86.6 % (40.0-70.0); PLATELET COUNT (AUTO) 639 K/uL (130-430); RED BLOOD CELL COUNT(AUTO) 2.82 MIL/uL (4.2-6.2); RED CELL DISTRIBUTION WIDTH 19.1 % (9.0-15.0)
[2019-06-01 07:10] LABS: CREATININE 1.23 mg/dL (0.55-1.30); TOTAL BILIRUBIN 0.2 mg/dL (0.0-1.0)
[2019-06-01 07:18] LABS: POTASSIUM 2.9 mmol/L (3.5-5.1)
[2019-06-01 07:35] LABS: CALCIUM 9.1 mg/dL (8.4-11.0)
[2019-06-01] MEDS: ALBUTEROL SULFATE 0.083% 2.5 MG/3 ML VIAL.NEB INH PRN (07:39)
[2019-06-01] MEDS: ACETYLCYSTEINE 20% 4 ML VIAL (RT) INH SCH ×3 (07:39→19:54)
--- NOTE | 2019-06-01 08:00 | NUR ---
PATIENT WAS ACCEPTED AND ASSESS PATIENT WAS BREATHING RAPID 40 NON-REBREATHER INTACT AT 100% NOTICE SOME UPPER AIRWAY CONGESTION , PATIENT NEED TO BE SUCTION , NOTICE PATIENT AT TIME DESAT TO 88,WILL COME UP TO 90,HR 110 BP 170/103 ,PATIENT IS ON ALL TYPE OF MEDICATION , SOME FOR BP AND HR, DOSE NOT HELP,TUBE FEEDING AT 45, HAS AN FLEXISEAL TUBE , LIQUID BROWN STOOL TEMP 99.8 ALSO WBC 33.[address] RICCI WAS DONE , RETURN CALL GAVE ORDER FOR Beto CLARK AND TO CALL INFECTION MD ALL WAS DONE WAITED TWO HR NO CALLED FROM DR CEBALLOS FOR THE ELEVATED WBC 1100 KCL 40MCG/100 ML HUNG OVER 4 HR, PATENT [address] COLD WASH ON PATIENT BODY , GAVE TYLENOL 500 MG ALSO GAVE CATAPRES 0.1 FOR THE HI BP , NOTICE PATIENT CONGESTION, HAS INCREASED BP AND HR INCREASED BLOOD GLUCOSE 343 NOTICE NO SLIDING SCALE , AN ABG HAD BEEN DONE IN THE AM WAS FAIR, WILL REPEAT ABG THIS RESULT WAS POOR AND ALSO THE RT TRIED TO SUCTION THE PATIENT BUT WAS UNABLE TO SUCTION IN THE NARE, VERY DRY TRIED SUCTION IN THE ORAL CAVITY NOTICE BRIGHT RED BLOOD HAD CANE OUT PATIENT WAS GETTING WORST ABG DECIDED TO INTUBATE THE PATIENT 1500 TEMP 98.6, PATIENT HAD AN HI RESIDULE OF 200ML TUBE FEEDS ON HOLD 1630 ER HERE TO INSERTED OETT, NEED THE LIGHT FROM THE OR, WAITING , CAME AN NO.7.5 ETT WAS INSERTED 23CM AT THE LIP , PATIENT WAS GIVEN EDOMIDATE AND ROCURONIUM FOR INTUBATION, STABLE, PATIENT WAS ABLE TO TOLERATED THE INTUBATION, VITAL SIGNS WERE IMPROVED AND STABLE 1800 COMPLTED PM CARE WAS GIVEN, NOTICE PATIENT PENIS HAD AN SAMLL TEAR ON SHAFT ALSO SCROTUM AND BETWEEN THE THIGE NEED VERY CLEANING, AREA RED AND EXCORIATED SKIN AROUND THR RECTAL TUBE NEED CLEANING THICK CREAM WAS APPLIED AND BETWEEN THIGH, STABLE, WILL CONTINUED WITH PLAN OF CARE, STABLE
[2019-06-01 08:08] LABS: ALBUMIN 1.5 g/dL (3.4-4.8)
[2019-06-01] MEDS ORDERED: KCL 40 mEq in 100 mL (PREMIX) 100 ML IV ONE (08:15)
[2019-06-01] MEDS ORDERED: INSULIN GLARGINE 100 UNITS/ML 10 ML VIAL SUBCUT SCH (09:00)
[2019-06-01] MEDS ORDERED: POTASSIUM CHLORIDE 40 MEQ in D5W 250 ML IV ONE (10:00)
[2019-06-01] MEDS: CHOLESTYRAMINE/SUCROSE 4 GM/PACKET GT SCH (10:00)
[2019-06-01] MEDS: DIPHENHYDRAMINE HCL 12.5 MG/5 ML UDC GT SCH (10:00)
[2019-06-01] MEDS: PANTOPRAZOLE SODIUM 40 MG/VIAL (PROTONIX) IVP SCH (10:01)
[2019-06-01] MEDS: metroNIDAZOLE 500 mg/NS 100 ML IV SCH (10:01)
[2019-06-01] MEDS: GEMFIBROZIL 600 MG TABLET (LOPID) GT SCH ×2 (10:03→22:53)
[2019-06-01] MEDS: POTASSIUM CHLORIDE 20 MEQ/PKT PACKET PO SCH (10:04)
[2019-06-01] MEDS: PARoxetine HCL 20 MG TABLET GT SCH ×2 (10:04→22:51)
[2019-06-01] MEDS: CHOLECALCIFEROL (VITAMIN D3) 2,000 UNIT TABLET GT SCH (10:05)
[2019-06-01] MEDS: BACLOFEN 10 MG TABLET GT SCH ×3 (10:05→22:50)
[2019-06-01] MEDS: FLUDROCORTISONE ACETATE 0.1 MG TABLET( FLORINEF) GT SCH (10:05)
[2019-06-01] MEDS: FUROSEMIDE 20 MG TABLET GT SCH (10:07)
[2019-06-01] MEDS: CITRIC ACID/SODIUM CITRATE 30 ML UDC GT SCH ×3 (10:08→22:47)
[2019-06-01] MEDS: NYSTATIN 15 GM TOPICAL POWDER TP SCH (10:08)
[2019-06-01] MEDS: VALPROIC ACID ORAL SYRUP 250 MG/5 ML UDC GT SCH ×3 (10:33→22:50)
[2019-06-01] MEDS: FOLIC ACID 1 MG TABLET GT SCH (10:34)
[2019-06-01] MEDS: METOPROLOL TARTRATE 50 MG TABLET GT SCH ×2 (10:35→22:53)
[2019-06-01] MEDS: ENOXAPARIN SODIUM 40 MG/0.4 ML SYRINGE SUBCUT SCH (10:37)
--- NOTE | 2019-06-01 11:30 | NUR ---
As per RT FIO2 reduced to 80 %. patient tolerating settings well.
--- NOTE | 2019-06-01 13:41 | NUR ---
Cad Design Engineer: CERAMIC TILE INSTALLER wanted to check in with the family since pts. mom was in his room. CERAMIC TILE INSTALLER introduced self to pts. mom. She said her son was not doing so well. CERAMIC TILE INSTALLER said she wanted to check in and mom was appreciative. Mom stated she has a "Fighter" of a son and that she feels he will get better. CERAMIC TILE INSTALLER asked her to call her if she had any questions or needed anything. CERAMIC TILE INSTALLER will remain available as needed.
[2019-06-01] MEDS: IPRATROPIUM BROM 0.5 MG/2.5 ML VIAL.NEB (ATROVENT) INH SCH ×2 (13:54→19:51)
[2019-06-01] MEDS: LevALBUTEROL HCL 1.25 MG/0.5 ML *CONC.* VIAL.NEB (XOPENEX CONC.) INH SCH ×2 (13:54→19:50)
[2019-06-01] MEDS: cloNIDine HCL 0.3 MG/24 HR PATCH.TDWK TD SCH (14:07)
[2019-06-01] MEDS: cefTRIAXone 1 GM in D5W 50 ML IV SCH (14:12)
[2019-06-01] MEDS: ACETAMINOPHEN 650 MG/20.3 ML UDC GT PRN (14:22)
--- NOTE | 2019-06-01 14:40 | NUR ---
Nutrition F/U RD reviewed pt's current EMR record including diet Hx, physician notes, nursing notes, pertinent labs/meds/procedures, care trends, and care activity. 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 Current Diet Order/Nutrition Support: Vital AF 1.2 at 45 ml/hr, Banatrol BID, Free Water Flush: 150 ml Q6h via GT x10 days Subjective Info: Pt seen resting in bed earlier today, w/ RN at bedside during visit, +O2 mask. Per RN report, Tf tolerated well, w/ only 5ml residual this morning. Pt continues w/ flexiseal. Current EN regimen remains appropriate and adequate. NEW Estimated Energy Expenditure (kcals/day) 5527-3424 kcal/day (30-35 kcal/kg IBW for sepsis) Estimated Protein Required (g/day) 60-80 gm/day (1.5-2 gm/kg IBW for sepsis) Estimated Fluid Required (l/day) 1.4 L/day (30 ml/kg CBW for diarrhea) Problem/Etiology/Signs/Symptoms Altered GI function r/t medication AEB flagyl and reports of diarrhea per nursing staff. *possibly ongoing Expected Outcomes/Goals Monitor EN support and intake w/ goal of pt meeting at least 75% of estimated nutritional needs, labs trending WNL, normal GI function, skin integrity/wt maintenance. Dietitian Recommendations * Recommend continuing Vital AF 1.2 at 45 ml/hr, Banatrol BID, Free Water Flush: 150 ml Q6h via GT Provides: 1296 kcal/day, 81 gm protein/day, and 1476 ml free water/day Meets: 108% of lower end of estimated caloric needs and 101% of upper end of estimated protein needs Follow Up High Risk: F/U in 2-3 days
--- NOTE | 2019-06-01 14:46 | NUR ---
Dietitian Recommendations * Recommend continuing Vital AF 1.2 at 45 ml/hr, Banatrol BID, Free Water Flush: 150 ml Q6h via GT Provides: 1296 kcal/day, 81 gm protein/day, and 1476 ml free water/day Meets: 108% of lower end of estimated caloric needs and 101% of upper end of estimated protein needs [facility], RD
[2019-06-01] MEDS: POTASSIUM CHLORIDE 10 MEQ in D5W 1,000 ML IV SCH (15:22)
--- NOTE | 2019-06-01 16:00 | NUR ---
PATIENT IS TACHYPNEIC AND TACHYCARDIC, SPO2 84% WILL REQUEST BLOOD GASES.
[2019-06-01] MEDS: LORazepam 2 MG/ML VIAL IVP PRN (16:06)
[2019-06-01] MEDS ORDERED: DEXTROSE 50% JECT 50 ML DISP.SYRIN IVP PRN (16:15)
--- NOTE | 2019-06-01 16:40 | NUR ---
DR. JETT, ER/MD CALLED FOR PT CRITICAL ABG, INTUBATION REQUESTED. WILL CALL DR. STINSON.
--- NOTE | 2019-06-01 17:00 | NUR ---
DR. JETT HERE, PATIENT INTUBATED WITH SIZE 7.5 ET TUBE. VENT SETTING: AC 18, VT 350, FIO2 100%, PEEP 5
--- NOTE | 2019-06-01 17:22 | NUR ---
161 PT DESAT. TRIED SUCTIONING SECRETIONS THROUGH MOUTH. TRIED NTS, UNABLE TO GO DOWN DUE TO RESISTANCE. PT NOSE BLEED. 1644 ASSISTED IN INTUBATION TO PROTECT PT AIRWAY. PT INTUBATED 7.5@23CM LL. KIM HELTON HEARD. PT PLACED ON VENTILATOR. WILL CONT. TO MONITOR. Addendum: 06/01/19 at 1728 by Stephani Herrmann RT Amended: Links added.
[2019-06-01 18:39] LABS: BASOPHILS # (AUTO) 0.2 K/uL (0.0-0.2); BASOPHILS % (AUTO) 0.7 % (0.0-2.0); EOSINOPHILS # (AUTO) 0.1 K/uL (0.0-0.4); EOSINOPHILS % (AUTO) 0.4 % (0.0-4.0); HEMATOCRIT 31.1 % (36-54); HEMOGLOBIN 9.8 g/dL (14.0-18.0); LYMPHOCYTES # (AUTO) 2.3 K/uL (1.0-5.5); LYMPHOCYTES % (AUTO) 7.7 % (20.5-51.5); MEAN CORPUSCULAR HEMOGLOBIN 31 pg (27-31); MEAN CORPUSCULAR HGB CONC 32 % (32-36); MEAN CORPUSCULAR VOLUME 98 fL (79.0-98.0); MONOCYTES # (AUTO) 1.2 K/uL (0.0-1.0); MONOCYTES % (AUTO) 4.2 % (1.7-9.3); NEUTROPHILS # (AUTO) 25.5 K/uL (1.8-7.7); PLATELET COUNT (AUTO) 656 K/uL (130-430); RED BLOOD CELL COUNT(AUTO) 3.17 MIL/uL (4.2-6.2); RED CELL DISTRIBUTION WIDTH 19.7 % (9.0-15.0); WHITE BLOOD COUNT (AUTO) 29.2 K/uL (4.8-10.8)
--- NOTE | 2019-06-01 19:45 | NUR ---
Initial PM note Received report from Registry nurse Lorene KIM and assumed care. Patient resting with both eyes closed and not opening eyes due to s/p sedation during intubation. Mechanical ventilation in place with 7.5 ETT, 23 cm to lip. settings: Ac 18, TV 350, FIO2 100%, peep 5. Tolerating settings with o2 sats 100%. Family at bedside. patient repositioned for comfort. G tube with Vital AF at 45 cc/h tolerating with 5 cc residuals. L UA picc infusing D5W + 10 MEQ KCL at 30 cc/h. Lema catheter in place draining urine per gravity. will continue to monitor. Family was instructed to call for help or concerns. call light within reach.
[2019-06-01 19:50] LABS: CALCIUM 9.5 mg/dL (8.4-11.0); CREATININE 1.31 mg/dL (0.55-1.30); POTASSIUM 4.7 mmol/L (3.5-5.1)
--- NOTE | 2019-06-01 20:15 | NUR ---
Dr Leon contacted to report lab findings. Procalcitonin level 16.23. Also informed that patient has met sepsis protocol criteria and orders for 1 L NS received. will continue to monitor.
--- NOTE | 2019-06-01 20:17 | NUR ---
PAGED DR. LEYVA [phone] SPOKE WITH NAMRATA
--- NOTE | 2019-06-01 21:00 | NUR ---
Dr Peterson contacted for orders regarding restraints. orders received.
[2019-06-01] MEDS ORDERED: PROPOFOL DRIP 100 ML IV PRN (21:15)
[2019-06-01] MEDS ORDERED: NACL 0.9% 1,000 ML IV ONE (21:15)
[2019-06-01] MEDS: INSULIN LISPRO SLIDING SCALE 100 UNITS/ML VIAL (humaLOG) SUBCUT PRN (21:20)
--- NOTE | 2019-06-01 21:30 | NUR ---
Results of CXR received and suggestion from ER physician to Pull ETT 1 cm to correct placement during intubation. New lip line 22 cm.
[2019-06-01] MEDS: LINEZOLID 300 ML IV SCH (22:35)
[2019-06-01] MEDS: PIPERACILLIN/TAZO 4.5GM/DEX-IS 100 ML IV SCH (22:47)
[2019-06-01] MEDS: HYDROCORTISONE 1%, 28.35 GM TOPICAL CREAM TP SCH (22:48)
[2019-06-01] MEDS: LATANOPROST 2.5 ML DROPS (XALATAN) OP SCH (22:48)
[2019-06-01] MEDS: EMOLLIENT COMBINATION NO.73 78 GM CREAM..G. TP SCH (22:50)
[2019-06-02] VITALS (26 sets, daily range): BP systolic 109–173
[2019-06-02] MEDS: DILTIAZEM HCL 90 MG TABLET GT SCH ×5 (01:14→23:40)
[2019-06-02] MEDS: INSULIN LISPRO SLIDING SCALE 100 UNITS/ML VIAL (humaLOG) SUBCUT PRN ×4 (01:25→23:54)
[2019-06-02] MEDS: LevALBUTEROL HCL 1.25 MG/0.5 ML *CONC.* VIAL.NEB (XOPENEX CONC.) INH SCH ×2 (01:36→19:32)
[2019-06-02] MEDS: IPRATROPIUM BROM 0.5 MG/2.5 ML VIAL.NEB (ATROVENT) INH SCH ×2 (01:37→19:33)
--- NOTE | 2019-06-02 01:40 | NUR ---
FIO2 down to 70 % as per RT
[2019-06-02 05:56] LABS: BASOPHILS # (AUTO) 0.2 K/uL (0.0-0.2); BASOPHILS % (AUTO) 0.8 % (0.0-2.0); EOSINOPHILS % (AUTO) 0.1 % (0.0-4.0); HEMATOCRIT 28.2 % (36-54); LYMPHOCYTES # (AUTO) 1.8 K/uL (1.0-5.5); LYMPHOCYTES % (AUTO) 6.1 % (20.5-51.5); MEAN CORPUSCULAR HEMOGLOBIN 31 pg (27-31); MEAN CORPUSCULAR HGB CONC 32 % (32-36); MEAN CORPUSCULAR VOLUME 98 fL (79.0-98.0); MONOCYTES % (AUTO) 3.4 % (1.7-9.3); NEUTROPHILS # (AUTO) 25.7 K/uL (1.8-7.7); NEUTROPHILS % (AUTO) 89.6 % (40.0-70.0); PLATELET COUNT (AUTO) 596 K/uL (130-430); RED BLOOD CELL COUNT(AUTO) 2.87 MIL/uL (4.2-6.2); RED CELL DISTRIBUTION WIDTH 19.1 % (9.0-15.0); WHITE BLOOD COUNT (AUTO) 28.7 K/uL (4.8-10.8)
[2019-06-02] MEDS: PIPERACILLIN/TAZO 4.5GM/DEX-IS 100 ML IV SCH ×3 (05:58→23:33)
[2019-06-02] MEDS: HYDROCORTISONE SOD SUCC 100 MG/2 ML VIAL IVP SCH ×2 (06:06→17:41)
[2019-06-02] MEDS: LEVOTHYROXINE SODIUM 0.025 MG TABLET GT SCH (06:06)
--- NOTE | 2019-06-02 07:30 | NUR ---
Opening Note Received endorsement from mover helper RN. Pt in no signs of acute distress. Restraint in place for safety.
[2019-06-02 07:54] LABS: CALCIUM 9.1 mg/dL (8.4-11.0); CREATININE 1.42 mg/dL (0.55-1.30); POTASSIUM 3.5 mmol/L (3.5-5.1); TOTAL BILIRUBIN 0.2 mg/dL (0.0-1.0)
[2019-06-02 07:55] LABS: ALBUMIN 1.6 g/dL (3.4-4.8)
[2019-06-02] MEDS: PANTOPRAZOLE SODIUM 40 MG/VIAL (PROTONIX) IVP SCH (08:35)
[2019-06-02] MEDS: LINEZOLID 300 ML IV SCH ×2 (08:35→20:08)
[2019-06-02] MEDS: CHOLESTYRAMINE/SUCROSE 4 GM/PACKET GT SCH (08:35)
[2019-06-02] MEDS: FLUDROCORTISONE ACETATE 0.1 MG TABLET( FLORINEF) GT SCH (08:35)
[2019-06-02] MEDS: DIPHENHYDRAMINE HCL 12.5 MG/5 ML UDC GT SCH (08:35)
[2019-06-02] MEDS: POTASSIUM CHLORIDE 20 MEQ/PKT PACKET PO SCH (08:36)
[2019-06-02] MEDS: METOPROLOL TARTRATE 50 MG TABLET GT SCH ×2 (08:37→21:04)
[2019-06-02] MEDS: CITRIC ACID/SODIUM CITRATE 30 ML UDC GT SCH ×3 (08:38→21:08)
[2019-06-02] MEDS: ENOXAPARIN SODIUM 40 MG/0.4 ML SYRINGE SUBCUT SCH (08:38)
[2019-06-02] MEDS: VALPROIC ACID ORAL SYRUP 250 MG/5 ML UDC GT SCH ×3 (08:39→21:08)
[2019-06-02] MEDS: NYSTATIN 15 GM TOPICAL POWDER TP SCH (08:41)
[2019-06-02] MEDS: PARoxetine HCL 20 MG TABLET GT SCH ×2 (08:42→21:04)
[2019-06-02] MEDS: GEMFIBROZIL 600 MG TABLET (LOPID) GT SCH ×2 (08:42→21:06)
[2019-06-02] MEDS: BACLOFEN 10 MG TABLET GT SCH ×3 (08:42→21:06)
[2019-06-02] MEDS: FOLIC ACID 1 MG TABLET GT SCH (08:42)
[2019-06-02] MEDS: CHOLECALCIFEROL (VITAMIN D3) 2,000 UNIT TABLET GT SCH (08:42)
[2019-06-02] MEDS: INSULIN GLARGINE 100 UNITS/ML 10 ML VIAL SUBCUT SCH (08:45)
[2019-06-02] MEDS: LORazepam 2 MG/ML VIAL IVP PRN ×4 (09:38→21:25)
[2019-06-02] MEDS: MORPHINE 2 MG/ML INJ. SYRINGE IVP PRN ×4 (09:39→20:42)
[2019-06-02 10:46] LABS: WHITE BLOOD COUNT (AUTO) 33.6 K/uL (4.8-10.8)
[2019-06-02] MEDS: POTASSIUM CHLORIDE 10 MEQ in D5W 1,000 ML IV SCH (11:05)
[2019-06-02] MEDS ORDERED: ROCURONIUM BROMIDE 10 MG/ML (ZEMURON) IV ONE (14:00)
[2019-06-02] MEDS ORDERED: ETOMIDATE 20 MG/ 10 ML VIAL (AMIDATE) IVP ONE (14:00)
--- NOTE | 2019-06-02 16:15 | NUR ---
Pt noted with temp 102.4, initiated cooling measures by placing ice packs and administered PRN tylenol.
[2019-06-02] MEDS: ACETAMINOPHEN 650 MG/20.3 ML UDC GT PRN (16:20)
--- NOTE | 2019-06-02 16:30 | NUR ---
Dr. Leon at bedside to see pt. Dr. Leon aware of pt's temperature and procalcitonin, states to continue to monitor pt, no new orders.
--- NOTE | 2019-06-02 19:08 | NUR ---
Endorsed plan of care to night custodian RN. Pt in no acute distress at this time.
[2019-06-02] MEDS: ACETYLCYSTEINE 20% 4 ML VIAL (RT) INH SCH (19:33)
[2019-06-02] MEDS: LATANOPROST 2.5 ML DROPS (XALATAN) OP SCH (21:06)
[2019-06-02] MEDS: EMOLLIENT COMBINATION NO.73 78 GM CREAM..G. TP SCH (21:07)
[2019-06-02] MEDS: HYDROCORTISONE 1%, 28.35 GM TOPICAL CREAM TP SCH (21:08)
[2019-06-03] VITALS (33 sets, daily range): BP systolic 112–174
[2019-06-03] MEDS: IPRATROPIUM BROM 0.5 MG/2.5 ML VIAL.NEB (ATROVENT) INH SCH ×4 (00:36→19:00)
[2019-06-03] MEDS: LevALBUTEROL HCL 1.25 MG/0.5 ML *CONC.* VIAL.NEB (XOPENEX CONC.) INH SCH ×4 (00:36→20:01)
[2019-06-03] MEDS: MORPHINE 2 MG/ML INJ. SYRINGE IVP PRN ×2 (05:12→15:18)
[2019-06-03] MEDS: LORazepam 2 MG/ML VIAL IVP PRN ×2 (05:12→15:17)
[2019-06-03 05:52] LABS: BASOPHILS # (AUTO) 0.1 K/uL (0.0-0.2); BASOPHILS % (AUTO) 0.7 % (0.0-2.0); EOSINOPHILS % (AUTO) 0.1 % (0.0-4.0); HEMATOCRIT 25.1 % (36-54); HEMOGLOBIN 8.1 g/dL (14.0-18.0); LYMPHOCYTES # (AUTO) 2.1 K/uL (1.0-5.5); LYMPHOCYTES % (AUTO) 10.3 % (20.5-51.5); MEAN CORPUSCULAR HEMOGLOBIN 31 pg (27-31); MEAN CORPUSCULAR HGB CONC 32 % (32-36); MEAN CORPUSCULAR VOLUME 96 fL (79.0-98.0); MONOCYTES # (AUTO) 0.9 K/uL (0.0-1.0); MONOCYTES % (AUTO) 4.4 % (1.7-9.3); NEUTROPHILS # (AUTO) 17.3 K/uL (1.8-7.7); NEUTROPHILS % (AUTO) 84.5 % (40.0-70.0); PLATELET COUNT (AUTO) 454 K/uL (130-430); RED BLOOD CELL COUNT(AUTO) 2.61 MIL/uL (4.2-6.2); RED CELL DISTRIBUTION WIDTH 18.9 % (9.0-15.0); WHITE BLOOD COUNT (AUTO) 20.5 K/uL (4.8-10.8)
[2019-06-03 06:08] LABS: CALCIUM 8.8 mg/dL (8.4-11.0); CREATININE 1.36 mg/dL (0.55-1.30)
[2019-06-03 06:12] LABS: POTASSIUM 2.9 mmol/L (3.5-5.1)
[2019-06-03] MEDS: HYDROCORTISONE SOD SUCC 100 MG/2 ML VIAL IVP SCH ×2 (07:04→17:34)
[2019-06-03] MEDS: LEVOTHYROXINE SODIUM 0.025 MG TABLET GT SCH (07:04)
[2019-06-03] MEDS: DILTIAZEM HCL 90 MG TABLET GT SCH ×3 (07:05→17:36)
[2019-06-03] MEDS: PIPERACILLIN/TAZO 4.5GM/DEX-IS 100 ML IV SCH ×3 (07:06→22:42)
[2019-06-03] MEDS: ACETAMINOPHEN 650 MG/20.3 ML UDC GT PRN (07:07)
--- NOTE | 2019-06-03 07:15 | NUR ---
Opening Received report from night court magistrate RN. Pt received acetaminophen for fever, current temp 100.4, applied ice packs and initiated cooling measures. No signs of acute distress or pain currently.
[2019-06-03] MEDS: ACETYLCYSTEINE 20% 4 ML VIAL (RT) INH SCH ×3 (07:20→20:01)
[2019-06-03] MEDS: INSULIN LISPRO SLIDING SCALE 100 UNITS/ML VIAL (humaLOG) SUBCUT PRN ×3 (07:40→17:36)
[2019-06-03] MEDS: INSULIN GLARGINE 100 UNITS/ML 10 ML VIAL SUBCUT SCH (09:22)
[2019-06-03] MEDS: ENOXAPARIN SODIUM 40 MG/0.4 ML SYRINGE SUBCUT SCH (09:23)
[2019-06-03] MEDS: LINEZOLID 300 ML IV SCH ×2 (09:24→20:23)
[2019-06-03] MEDS: GEMFIBROZIL 600 MG TABLET (LOPID) GT SCH ×2 (09:25→20:23)
[2019-06-03] MEDS: CHOLECALCIFEROL (VITAMIN D3) 2,000 UNIT TABLET GT SCH (09:25)
[2019-06-03] MEDS: FOLIC ACID 1 MG TABLET GT SCH (09:25)
[2019-06-03] MEDS: PANTOPRAZOLE SODIUM 40 MG/VIAL (PROTONIX) IVP SCH (09:25)
[2019-06-03] MEDS: DIPHENHYDRAMINE HCL 12.5 MG/5 ML UDC GT SCH (09:25)
[2019-06-03] MEDS: METOPROLOL TARTRATE 50 MG TABLET GT SCH ×2 (09:25→20:24)
[2019-06-03] MEDS: FLUDROCORTISONE ACETATE 0.1 MG TABLET( FLORINEF) GT SCH (09:26)
[2019-06-03] MEDS: PARoxetine HCL 20 MG TABLET GT SCH ×2 (09:26→20:23)
[2019-06-03] MEDS: CHOLESTYRAMINE/SUCROSE 4 GM/PACKET GT SCH (09:26)
[2019-06-03] MEDS: BACLOFEN 10 MG TABLET GT SCH ×3 (09:26→20:23)
[2019-06-03] MEDS: POTASSIUM CHLORIDE 20 MEQ/PKT PACKET PO SCH ×2 (09:26→20:24)
[2019-06-03] MEDS: CITRIC ACID/SODIUM CITRATE 30 ML UDC GT SCH ×3 (09:28→20:29)
[2019-06-03] MEDS: VALPROIC ACID ORAL SYRUP 250 MG/5 ML UDC GT SCH ×3 (09:28→20:26)
[2019-06-03] MEDS: NYSTATIN 15 GM TOPICAL POWDER TP SCH (09:29)
[2019-06-03] MEDS: KCL 20 mEq in 100 mL (PREMIX) 100 ML IV SCH ×2 (09:31→12:29)
--- NOTE | 2019-06-03 09:40 | NUR ---
Vent setting change to AC 16 and FiO2 40% by RT per MD orders. Pt tolerating well.
--- NOTE | 2019-06-03 09:40 | NUR ---
RT NOTES Vent settings to AC 16 40% per Dr Lerma's order. No adverse reactions noted. Will monitor pt.
[2019-06-03] MEDS: POTASSIUM CHLORIDE 10 MEQ in D5W 1,000 ML IV SCH (10:00)
[2019-06-03] MEDS ORDERED: KCL 40 mEq in D5W 1000 mL 1,000 ML IV SCH (10:15)
--- NOTE | 2019-06-03 19:15 | NUR ---
Endorsed plan of care to restaurant shift supervisor RN. Pt in no signs of acute distress or pain. Restraint in place on R wrist for safety, skin intact.
--- NOTE | 2019-06-03 19:15 | NUR ---
PM SHIFT ASSESSMENT Pt is awake on the vent. SR/ST noted on monitor. Skin warm and dry. Gtube noted with tubefeeding infusing. YURI PICC in place with IVF infusing. Lema catheter and flexi seal in place and draining to gravity. Safety precautions in place, call light within reach. Will continue to monitor.
[2019-06-03] MEDS: EMOLLIENT COMBINATION NO.73 78 GM CREAM..G. TP SCH (20:25)
[2019-06-03] MEDS: LATANOPROST 2.5 ML DROPS (XALATAN) OP SCH (20:25)
[2019-06-03] MEDS: HYDROCORTISONE 1%, 28.35 GM TOPICAL CREAM TP SCH (20:27)
[2019-06-04] VITALS (33 sets, daily range): BP systolic 117–185
[2019-06-04] MEDS: DILTIAZEM HCL 90 MG TABLET GT SCH ×4 (00:25→18:30)
[2019-06-04] MEDS: MORPHINE 2 MG/ML INJ. SYRINGE IVP PRN ×4 (00:26→16:32)
[2019-06-04] MEDS: INSULIN LISPRO SLIDING SCALE 100 UNITS/ML VIAL (humaLOG) SUBCUT PRN ×4 (00:36→18:32)
[2019-06-04] MEDS: LevALBUTEROL HCL 1.25 MG/0.5 ML *CONC.* VIAL.NEB (XOPENEX CONC.) INH SCH ×5 (01:41→20:05)
[2019-06-04] MEDS: IPRATROPIUM BROM 0.5 MG/2.5 ML VIAL.NEB (ATROVENT) INH SCH ×4 (01:44→20:05)
--- NOTE | 2019-06-04 05:30 | NUR ---
CHG BATH GIVEN. PT TOLERATED CARE WELL.
[2019-06-04 05:58] LABS: HEMATOCRIT 24.4 % (36-54); RED BLOOD CELL COUNT(AUTO) 2.53 MIL/uL (4.2-6.2)
[2019-06-04 06:24] LABS: MEAN CORPUSCULAR HEMOGLOBIN 32 pg (27-31); MEAN CORPUSCULAR HGB CONC 33 % (32-36); MEAN CORPUSCULAR VOLUME 96 fL (79.0-98.0); PLATELET COUNT (AUTO) 424 K/uL (130-430); RED CELL DISTRIBUTION WIDTH 18.7 % (9.0-15.0); WHITE BLOOD COUNT (AUTO) 16.9 K/uL (4.8-10.8)
[2019-06-04] MEDS: PIPERACILLIN/TAZO 4.5GM/DEX-IS 100 ML IV SCH ×3 (06:30→22:18)
[2019-06-04] MEDS: LEVOTHYROXINE SODIUM 0.025 MG TABLET GT SCH (06:31)
[2019-06-04] MEDS: HYDROCORTISONE SOD SUCC 100 MG/2 ML VIAL IVP SCH ×2 (06:32→18:30)
[2019-06-04 06:43] LABS: ALBUMIN 1.4 g/dL (3.4-4.8); CALCIUM 8.8 mg/dL (8.4-11.0); CREATININE 1.23 mg/dL (0.55-1.30); POTASSIUM 3.9 mmol/L (3.5-5.1); TOTAL BILIRUBIN 0.2 mg/dL (0.0-1.0)
--- NOTE | 2019-06-04 07:25 | NUR ---
ENDORSEMENT Pt care endorsed to JUDY Abreu using nursing SBAR.
--- NOTE | 2019-06-04 07:30 | NUR ---
AM ASSESSMENT Pt received from night RN using SBAR.
[2019-06-04 07:41] LABS: ATYPICAL LYMPHOCYTES % 0 % (0-0); BAND % (MANUAL) 2 % (0-6); BASOPHILS % (MANUAL) 0 % (0-2); EOSINOPHILS % (MANUAL) 0 % (0-7); LYMPHOCYTES % (MANUAL) 13 % (20-46); MONOCYTES % (MANUAL) 6 % (0-11)
[2019-06-04] MEDS: ACETYLCYSTEINE 20% 4 ML VIAL (RT) INH SCH ×3 (07:55→20:09)
--- NOTE | 2019-06-04 08:10 | NUR ---
Oral Care Pt provided oral care, pt tolerated well. Will continue to monitor.
[2019-06-04] MEDS: PARoxetine HCL 20 MG TABLET GT SCH ×2 (08:56→20:43)
[2019-06-04] MEDS: FLUDROCORTISONE ACETATE 0.1 MG TABLET( FLORINEF) GT SCH (08:56)
[2019-06-04] MEDS: BACLOFEN 10 MG TABLET GT SCH ×3 (08:56→20:40)
[2019-06-04] MEDS: GEMFIBROZIL 600 MG TABLET (LOPID) GT SCH ×2 (08:56→20:41)
[2019-06-04] MEDS: DIPHENHYDRAMINE HCL 12.5 MG/5 ML UDC GT SCH (08:56)
[2019-06-04] MEDS: CHOLECALCIFEROL (VITAMIN D3) 2,000 UNIT TABLET GT SCH (08:56)
[2019-06-04] MEDS: FOLIC ACID 1 MG TABLET GT SCH (08:56)
[2019-06-04] MEDS: POTASSIUM CHLORIDE 20 MEQ/PKT PACKET PO SCH ×2 (08:57→20:45)
[2019-06-04] MEDS: PANTOPRAZOLE SODIUM 40 MG/VIAL (PROTONIX) IVP SCH (08:57)
[2019-06-04] MEDS: CHOLESTYRAMINE/SUCROSE 4 GM/PACKET GT SCH (08:57)
[2019-06-04] MEDS ORDERED: INSULIN GLARGINE 100 UNITS/ML 10 ML VIAL SUBCUT SCH (09:00)
[2019-06-04] MEDS: METOPROLOL TARTRATE 50 MG TABLET GT SCH ×2 (09:04→20:43)
[2019-06-04] MEDS: ENOXAPARIN SODIUM 40 MG/0.4 ML SYRINGE SUBCUT SCH (09:08)
[2019-06-04] MEDS: NYSTATIN 15 GM TOPICAL POWDER TP SCH (09:10)
[2019-06-04] MEDS: VALPROIC ACID ORAL SYRUP 250 MG/5 ML UDC GT SCH ×3 (09:21→20:41)
[2019-06-04] MEDS: CITRIC ACID/SODIUM CITRATE 30 ML UDC GT SCH ×3 (09:21→20:41)
[2019-06-04] MEDS: LINEZOLID 300 ML IV SCH ×2 (09:40→20:44)
[2019-06-04] MEDS: POTASSIUM CHLORIDE 10 MEQ in D5W 1,000 ML IV SCH (11:02)
--- NOTE | 2019-06-04 12:15 | NUR ---
Oral Care Pt provided oral care, pt tolerated well. Will continue to monitor.
--- NOTE | 2019-06-04 12:30 | NUR ---
ICU 4 Pt transferred to ICU 4, pt transferred with assistance from RT. Reconnected to in room monitor. Pt tolerated well. Will continue to monitor.
--- NOTE | 2019-06-04 13:51 | NUR ---
Dr. Emmanuel durbin called to office. Spoke to Cecilia.
--- NOTE | 2019-06-04 14:32 | NUR ---
Nutrition F/U RD reviewed pt's current EMR record including diet Hx, physician notes, nursing notes, pertinent labs/meds/procedures, care trends, and care activity. 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 Current Diet Order/Nutrition Support: Vital AF 1.2 at 45 ml/hr, Banatrol BID, Free Water Flush: 150 ml Q6h via GT x13 days Subjective Info: Pt seen resting in bed earlier today, w/ RN at bedside providing care, and TF infusing infusing as per physician order -- 167 ml infused, providing 200 kcal. RN stated she would administer Banatrol; no residuals today. Pt was re-intubated 06/01/19 per EMR. Pt continues w/ rectal tube w/ 700 ml of stool output noted 06/03/19 per EMR. Current EN regimen remains appropriate and adequate. NEW Estimated Energy Expenditure (kcals/day) -- Ve: 11.6/Temperature: 38 degrees Celsius 1700 kcal/day (PSU for critical illness, intubated, on vent support) Estimated Protein Required (g/day) 60-80 gm/day (1.5-2 gm/kg IBW for sepsis) Estimated Fluid Required (l/day) 1.4 L/day (30 ml/kg CBW for diarrhea) Problem/Etiology/Signs/Symptoms Altered GI function r/t medication AEB flagyl and reports of diarrhea per nursing staff. *ongoing Expected Outcomes/Goals Monitor EN support and intake w/ goal of pt meeting at least 75% of estimated nutritional needs, labs trending WNL, normal GI function, skin integrity/wt maintenance. Dietitian Recommendations * Recommend continuing Vital AF 1.2 at 45 ml/hr, Banatrol BID, Free Water Flush: 150 ml Q6h via GT Provides: 1296 kcal/day, 81 gm protein/day, and 1476 ml free water/day Meets: 108% of lower end of estimated caloric needs and 101% of upper end of estimated protein needs Follow Up High Risk: F/U in 2-3 days Addendum: 06/04/19 at [address] CORRECTION: Dietitian Recommendations * Recommend continuing Vital AF 1.2 at 45 ml/hr, Banatrol BID, Free Water Flush: 150 ml Q6h via GT Provides: 1296 kcal/day, 81 gm protein/day, and 1476 ml free water/day Meets: 76% of lower end of estimated caloric needs and 101% of upper end of estimated protein needs
--- NOTE | 2019-06-04 14:37 | NUR ---
Dietitian Recommendations * Recommend continuing Vital AF 1.2 at 45 ml/hr, Banatrol BID, Free Water Flush: 150 ml Q6h via GT Provides: 1296 kcal/day, 81 gm protein/day, and 1476 ml free water/day Meets: 108% of lower end of estimated caloric needs and 101% of upper end of estimated protein needs LP, RD Please refer to Nutrition F/U for details.
[2019-06-04 16:12] LABS: PROTHROMBIN TIME 10.5 SECS (9.5-12.5)
[2019-06-04] MEDS: cloNIDine HCL 0.3 MG/24 HR PATCH.TDWK TD SCH (16:39)
--- NOTE | 2019-06-04 16:39 | NUR ---
Clonidine 0.3 Patch Patch applied to pts right upper chest. Patch has time date and initials
[2019-06-04] MEDS: cloNIDine HCL 0.1 MG TABLET GT PRN (17:15)
--- NOTE | 2019-06-04 17:26 | NUR ---
Blood Transfusion INITIATION: Blood has been type and crossmatched. Blood sent from blood bank. Information on unit of blood checked against patient wristband at bedside by two nurses. All information matches. Patient or responsible alliance party informed of potential complications associated with blood transfusion. Informed of possible transfusion reaction symptoms. Aware of need to notify nurse at once of itching, shortness of breath, flushing, feeling of impending doom, or other symptoms not previously present. Vital signs taken within 5 minutes prior to initiation of transfusion. RN will remain with patient for first 15 minutes of transfusion at which time vital signs will be re-assessed.
--- NOTE | 2019-06-04 17:45 | NUR ---
Midline Observation of left upper midline leaking blood product onto francisco below arm. Left hand peripheral IV (22) started. IV patent with blood return. Blood product infusing to peripheral iv.
--- NOTE | 2019-06-04 18:20 | NUR ---
Midline Dr Peterson notified of leaking midline. New orders received.
[2019-06-04] MEDS: ACETAMINOPHEN 650 MG/20.3 ML UDC GT PRN (18:38)
[2019-06-04] MEDS ORDERED: amLODIPine BESYLATE 5 MG TABLET GT ONE (19:00)
--- NOTE | 2019-06-04 19:29 | NUR ---
Closing Notes Patient endorsed to nightshift RN using SBAR
--- NOTE | 2019-06-04 19:50 | NUR ---
Initial pm note Received patient after report from day shift nurse. patient awake, eyes opened. vent in place via ETT no change in settings and tolerating well. AC 16, tv 350, FIO2 40 % peep 8. Lema catheter in place and draining to gravity. Flexi seal in place with watery stool. no signs of distress. vss. call light within reach. will continue to monitor.
[2019-06-04] MEDS: LATANOPROST 2.5 ML DROPS (XALATAN) OP SCH (20:44)
[2019-06-04] MEDS: EMOLLIENT COMBINATION NO.73 78 GM CREAM..G. TP SCH (20:46)
[2019-06-04] MEDS: HYDROCORTISONE 1%, 28.35 GM TOPICAL CREAM TP SCH (20:47)
--- NOTE | 2019-06-04 21:00 | NUR ---
CHG bath completed, linen changed. patient tolerated well.
--- NOTE | 2019-06-04 22:00 | NUR ---
Iv site started Left hand 22g after accidently previous site was pulled out.
[2019-06-05] VITALS (31 sets, daily range): BP systolic 116–198
[2019-06-05] MEDS: DILTIAZEM HCL 90 MG TABLET GT SCH ×5 (01:25→23:41)
[2019-06-05] MEDS: LORazepam 2 MG/ML VIAL IVP PRN ×2 (01:27→20:28)
[2019-06-05] MEDS: MORPHINE 2 MG/ML INJ. SYRINGE IVP PRN (01:29)
[2019-06-05] MEDS: INSULIN LISPRO SLIDING SCALE 100 UNITS/ML VIAL (humaLOG) SUBCUT PRN ×5 (01:34→23:40)
[2019-06-05] MEDS: LevALBUTEROL HCL 1.25 MG/0.5 ML *CONC.* VIAL.NEB (XOPENEX CONC.) INH SCH ×4 (02:10→20:45)
[2019-06-05] MEDS: IPRATROPIUM BROM 0.5 MG/2.5 ML VIAL.NEB (ATROVENT) INH SCH ×4 (02:10→20:44)
[2019-06-05 06:43] LABS: BASOPHILS % (AUTO) 0.2 % (0.0-2.0); EOSINOPHILS # (AUTO) 0.1 K/uL (0.0-0.4); EOSINOPHILS % (AUTO) 0.5 % (0.0-4.0); HEMATOCRIT 31.1 % (36-54); HEMOGLOBIN 10.2 g/dL (14.0-18.0); LYMPHOCYTES # (AUTO) 1.8 K/uL (1.0-5.5); LYMPHOCYTES % (AUTO) 12.5 % (20.5-51.5); MEAN CORPUSCULAR HEMOGLOBIN 29 pg (27-31); MEAN CORPUSCULAR HGB CONC 33 % (32-36); MEAN CORPUSCULAR VOLUME 90 fL (79.0-98.0); MONOCYTES % (AUTO) 6.6 % (1.7-9.3); NEUTROPHILS # (AUTO) 11.7 K/uL (1.8-7.7); NEUTROPHILS % (AUTO) 80.2 % (40.0-70.0); PLATELET COUNT (AUTO) 407 K/uL (130-430); RED BLOOD CELL COUNT(AUTO) 3.47 MIL/uL (4.2-6.2); RED CELL DISTRIBUTION WIDTH 23.4 % (9.0-15.0); WHITE BLOOD COUNT (AUTO) 14.6 K/uL (4.8-10.8)
[2019-06-05] MEDS: HYDROCORTISONE SOD SUCC 100 MG/2 ML VIAL IVP SCH ×2 (06:44→18:27)
[2019-06-05] MEDS: LEVOTHYROXINE SODIUM 0.025 MG TABLET GT SCH (06:45)
[2019-06-05] MEDS: PIPERACILLIN/TAZO 4.5GM/DEX-IS 100 ML IV SCH ×3 (06:46→21:01)
--- NOTE | 2019-06-05 07:15 | NUR ---
Opening Note Patient received sleeping in bed at this time currently on a ventilator, no signs of distress noted. Patient on manager monitoring. Patient with midline and peripheral IV receiving fluids per MD order. Patient has a g-tube receiving tubefeeding. Patient has a laureano catheter draining urine and rectal tube draining loose stools. Safety precautions enforced, call light within reach.
[2019-06-05 07:36] LABS: CALCIUM 8.8 mg/dL (8.4-11.0); CREATININE 1.15 mg/dL (0.55-1.30); POTASSIUM 3.8 mmol/L (3.5-5.1)
[2019-06-05] MEDS: ACETYLCYSTEINE 20% 4 ML VIAL (RT) INH SCH ×3 (08:15→20:44)
[2019-06-05] MEDS: DIPHENHYDRAMINE HCL 12.5 MG/5 ML UDC GT SCH (08:43)
[2019-06-05] MEDS: ENOXAPARIN SODIUM 40 MG/0.4 ML SYRINGE SUBCUT SCH (08:43)
[2019-06-05] MEDS: CITRIC ACID/SODIUM CITRATE 30 ML UDC GT SCH ×3 (08:44→21:03)
[2019-06-05] MEDS: CHOLESTYRAMINE/SUCROSE 4 GM/PACKET GT SCH (08:44)
[2019-06-05] MEDS: PANTOPRAZOLE SODIUM 40 MG/VIAL (PROTONIX) IVP SCH (08:44)
[2019-06-05] MEDS: POTASSIUM CHLORIDE 20 MEQ/PKT PACKET PO SCH ×2 (08:44→21:03)
[2019-06-05] MEDS: VALPROIC ACID ORAL SYRUP 250 MG/5 ML UDC GT SCH ×3 (08:45→21:03)
[2019-06-05] MEDS: PARoxetine HCL 20 MG TABLET GT SCH ×2 (08:45→21:02)
[2019-06-05] MEDS: GEMFIBROZIL 600 MG TABLET (LOPID) GT SCH ×2 (08:45→21:02)
[2019-06-05] MEDS: FOLIC ACID 1 MG TABLET GT SCH (08:45)
[2019-06-05] MEDS: FLUDROCORTISONE ACETATE 0.1 MG TABLET( FLORINEF) GT SCH (08:45)
[2019-06-05] MEDS: BACLOFEN 10 MG TABLET GT SCH ×3 (08:46→21:02)
[2019-06-05] MEDS: CHOLECALCIFEROL (VITAMIN D3) 2,000 UNIT TABLET GT SCH (08:46)
[2019-06-05] MEDS: cloNIDine HCL 0.1 MG TABLET GT PRN ×2 (08:47→18:27)
[2019-06-05] MEDS: METOPROLOL TARTRATE 50 MG TABLET GT SCH ×2 (08:47→21:02)
[2019-06-05] MEDS: LINEZOLID 300 ML IV SCH ×2 (08:48→21:04)
[2019-06-05] MEDS: NYSTATIN 15 GM TOPICAL POWDER TP SCH (08:52)
[2019-06-05] MEDS ORDERED: INSULIN GLARGINE 100 UNITS/ML 10 ML VIAL SUBCUT SCH (09:00)
[2019-06-05] MEDS ORDERED: amLODIPine BESYLATE 5 MG TABLET GT SCH (09:00)
[2019-06-05] MEDS: POTASSIUM CHLORIDE 10 MEQ in D5W 1,000 ML IV SCH (11:00)
[2019-06-05] MEDS: hydrALAZINE HCL 20 MG/ML VIAL IVP PRN (11:29)
--- NOTE | 2019-06-05 15:23 | NUR ---
CONSULTATION PAGED/CALLED Reason for Consultation: CENTRAL LINE PLACEMENT Person Who was Notified: JESSICA Consulting Physician: DR BARNEY Waterproof Bag Cutting Machine Operator Specialty: SURGERY Ordering Physician: DR RICCI
--- NOTE | 2019-06-05 17:15 | NUR ---
Opening Note Received patient report from endorsing nurse via SBAR
[2019-06-05] MEDS: FLUCONAZOLE 100 mg/ NS 50 ML IV SCH (18:28)
[2019-06-05] MEDS ORDERED: FUROSEMIDE 20 MG/2 ML VIAL IVP SCH (19:00)
--- NOTE | 2019-06-05 19:00 | NUR ---
Closing Note Patient report given to nightshift nurse via SBAR
--- NOTE | 2019-06-05 19:15 | NUR ---
PM ASSESSMENT Received pt in bed with eyes open resting comfortably. No signs of acute distress or discomfort noted. VSS with Sinus tach seen on the monitor. Pt intubated with vent settings: AC 11, TV 350, FiO2 45% and PEEP of 8. Pt tolerating vent settings well with O2 sats @ 100% and even and unlabored breathing. Pt has a YURI midline, saline locked and a L hand 22g infusing IVF. Gtube noted infusing tubefeeding. Lema cath noted draining urine to gravity. Flexiseal noted draining loose stool. Bed is locked and in lowest position, call light within reach, will cont to monitor pt. Addendum: 06/05/19 at 2 by Tony Leavitt RN Pt's FiO2% 40%, not 45%. Addendum: 06/05/19 at 2244 by Tony Leavitt RN AC 16, not AC 11
--- NOTE | 2019-06-05 19:50 | NUR ---
Dr. Benitez at bedside examining pt for central line pt.
--- NOTE | 2019-06-05 20:40 | NUR ---
Dr. Benitez tried but states that he cannot perform the procedure of a central line at this time. Says it would be better if he does it in the OR and would like to do it tomorrow. Dr. Benitez spoke to the pt's father and let him know the details. The father of the pt told Dr. Benitez that he would like to wait until Saturday to do the procedure. Made charge nurse aware. Pt in no signs of acute distress or discomfort. Will cont to monitor pt.
[2019-06-05] MEDS: HYDROCORTISONE 1%, 28.35 GM TOPICAL CREAM TP SCH (21:03)
[2019-06-05] MEDS: LATANOPROST 2.5 ML DROPS (XALATAN) OP SCH (21:03)
[2019-06-05] MEDS: EMOLLIENT COMBINATION NO.73 78 GM CREAM..G. TP SCH (21:04)
--- NOTE | 2019-06-05 22:00 | NUR ---
CHG CHG bath given to pt at this time. Pt tolerated well. Pt repositioned and chucks and linen changed. Will cont to monitor pt.
[2019-06-06] VITALS (33 sets, daily range): BP systolic 104–180
[2019-06-06] MEDS: LevALBUTEROL HCL 1.25 MG/0.5 ML *CONC.* VIAL.NEB (XOPENEX CONC.) INH SCH ×4 (01:09→19:44)
[2019-06-06] MEDS: IPRATROPIUM BROM 0.5 MG/2.5 ML VIAL.NEB (ATROVENT) INH SCH ×4 (01:09→19:43)
--- NOTE | 2019-06-06 04:00 | NUR ---
Pt in no signs of acute distress or discomfort at this time. Even and and unlabored breathing noted. Bed is locked and in lowest position, call light within reach, will cont to monitor pt.
[2019-06-06] MEDS: PIPERACILLIN/TAZO 4.5GM/DEX-IS 100 ML IV SCH ×3 (05:48→21:49)
[2019-06-06] MEDS: LEVOTHYROXINE SODIUM 0.025 MG TABLET GT SCH (05:49)
[2019-06-06] MEDS: HYDROCORTISONE SOD SUCC 100 MG/2 ML VIAL IVP SCH ×2 (05:49→18:00)
[2019-06-06] MEDS: DILTIAZEM HCL 90 MG TABLET GT SCH ×3 (05:49→18:00)
[2019-06-06] MEDS: INSULIN LISPRO SLIDING SCALE 100 UNITS/ML VIAL (humaLOG) SUBCUT PRN ×2 (05:51→19:33)
[2019-06-06] MEDS: INSULIN NPH 100 UNITS/ML 10 ML VIAL SUBCUT SCH ×2 (06:27→17:14)
[2019-06-06] MEDS: hydrALAZINE HCL 20 MG/ML VIAL IVP PRN (06:43)
[2019-06-06] MEDS: ACETYLCYSTEINE 20% 4 ML VIAL (RT) INH SCH ×3 (07:00→20:37)
[2019-06-06 07:02] LABS: BASOPHILS # (AUTO) 0.1 K/uL (0.0-0.2); BASOPHILS % (AUTO) 0.4 % (0.0-2.0); EOSINOPHILS # (AUTO) 0.2 K/uL (0.0-0.4); EOSINOPHILS % (AUTO) 1.3 % (0.0-4.0); HEMATOCRIT 32.2 % (36-54); HEMOGLOBIN 10.8 g/dL (14.0-18.0); LYMPHOCYTES # (AUTO) 2.7 K/uL (1.0-5.5); LYMPHOCYTES % (AUTO) 19.8 % (20.5-51.5); MEAN CORPUSCULAR HEMOGLOBIN 30 pg (27-31); MEAN CORPUSCULAR HGB CONC 33 % (32-36); MEAN CORPUSCULAR VOLUME 89 fL (79.0-98.0); MONOCYTES # (AUTO) 1.3 K/uL (0.0-1.0); MONOCYTES % (AUTO) 9.7 % (1.7-9.3); NEUTROPHILS # (AUTO) 9.3 K/uL (1.8-7.7); NEUTROPHILS % (AUTO) 68.8 % (40.0-70.0); PLATELET COUNT (AUTO) 441 K/uL (130-430); RED BLOOD CELL COUNT(AUTO) 3.63 MIL/uL (4.2-6.2); RED CELL DISTRIBUTION WIDTH 22.9 % (9.0-15.0); WHITE BLOOD COUNT (AUTO) 13.5 K/uL (4.8-10.8)
--- NOTE | 2019-06-06 07:15 | NUR ---
ENDORSEMENT Report given to oncoming dayshift RN and pt care was endorsed. No signs of acute distress or discomfort noted.
[2019-06-06 07:31] LABS: ALBUMIN 1.7 g/dL (3.4-4.8); CALCIUM 9.2 mg/dL (8.4-11.0); CREATININE 1.03 mg/dL (0.55-1.30); POTASSIUM 3.9 mmol/L (3.5-5.1); TOTAL BILIRUBIN 0.2 mg/dL (0.0-1.0)
--- NOTE | 2019-06-06 08:00 | NUR ---
PATIENT WAS ACCEPTED AND ASSESS DONE ,PATIENT ON VENT TOLERATE FAIRLY BREATHING RAPID, USING ABDOMEN MUSCLE AT INTERVAL, ABG WAS DONE MENDOZA INTACT WITH AMOUNT OF URINE HAS FLEXISEAL NOTICE THIN WATERY STOOL ,HAS MANY MEDICATION USED G_TUBE SMALL RESPOND TO SIMPLE COMMANDS , WILL OPEN EYES AND TRACK STABLE PATIENT HAS BEEN INTUBATED FOR THE THRID TIME, WILL NEED TO HAVE AN TRACH NEXT TIME , STABLE 1200 TEMP. 99.3 WATER FLUSH GIVEN , TOLERATE NOTICE ABDOMEN IS FIRMED TO TOUCH ,STABLE 1500 ABG WAS DONE TV CHANGE TO 250 SAT 100% , 35% RATE 12 STABLE 1600 MORPHINE ONE MG IV WAS GIVEN FOR THE INCREASE BREATHING. 172 DR RICCI WAS HERE AND ORDER TO GIVE ATIVAN ONE MG AND MORPHINE 2MG Q ONE HR WAS GIVEN , THE PATIENT ALSO BITE DOWN ON THE OETTUBE 1819 ATIVAN AND MORPHINE SAME ABOVE WAS GIVEN PATIENT RELAXED AND STOP BITING WILL CONTINUED WITH PLAN OF CARE, STABLE
[2019-06-06] MEDS: NYSTATIN 15 GM TOPICAL POWDER TP SCH (09:00)
[2019-06-06] MEDS: VALPROIC ACID ORAL SYRUP 250 MG/5 ML UDC GT SCH ×3 (09:41→20:29)
[2019-06-06] MEDS: PANTOPRAZOLE SODIUM 40 MG/VIAL (PROTONIX) IVP SCH (09:41)
[2019-06-06] MEDS: GEMFIBROZIL 600 MG TABLET (LOPID) GT SCH ×2 (09:41→20:59)
[2019-06-06] MEDS: DIPHENHYDRAMINE HCL 12.5 MG/5 ML UDC GT SCH (09:41)
[2019-06-06] MEDS: METOPROLOL TARTRATE 50 MG TABLET GT SCH ×2 (09:43→21:00)
[2019-06-06] MEDS: POTASSIUM CHLORIDE 20 MEQ/PKT PACKET PO SCH ×2 (09:43→21:01)
[2019-06-06] MEDS: FLUDROCORTISONE ACETATE 0.1 MG TABLET( FLORINEF) GT SCH (09:44)
[2019-06-06] MEDS: CITRIC ACID/SODIUM CITRATE 30 ML UDC GT SCH ×3 (09:44→20:34)
[2019-06-06] MEDS: FOLIC ACID 1 MG TABLET GT SCH (09:44)
[2019-06-06] MEDS: CHOLESTYRAMINE/SUCROSE 4 GM/PACKET GT SCH (09:44)
[2019-06-06] MEDS: PARoxetine HCL 20 MG TABLET GT SCH ×2 (09:45→21:01)
[2019-06-06] MEDS: CHOLECALCIFEROL (VITAMIN D3) 2,000 UNIT TABLET GT SCH (09:45)
[2019-06-06] MEDS: BACLOFEN 10 MG TABLET GT SCH ×3 (09:46→20:59)
[2019-06-06] MEDS: amLODIPine BESYLATE 5 MG TABLET GT SCH (09:46)
[2019-06-06] MEDS: LINEZOLID 300 ML IV SCH ×2 (09:47→20:31)
[2019-06-06] MEDS: ENOXAPARIN SODIUM 40 MG/0.4 ML SYRINGE SUBCUT SCH (09:49)
--- NOTE | 2019-06-06 12:28 | NUR ---
1210 titrated fi02 to .35. sat 100% rn aware. pt tolerating well will continue to monitor. Addendum: 06/06/19 at 1231 by Stephani Herrmann RT Amended: Links added.
[2019-06-06] MEDS: POTASSIUM CHLORIDE 10 MEQ in D5W 1,000 ML IV SCH (15:10)
[2019-06-06] MEDS: LORazepam 2 MG/ML VIAL IVP PRN ×3 (15:43→23:33)
[2019-06-06] MEDS: MORPHINE 2 MG/ML INJ. SYRINGE IVP PRN ×3 (15:43→23:26)
[2019-06-06] MEDS: FLUCONAZOLE 100 mg/ NS 50 ML IV SCH (18:00)
--- NOTE | 2019-06-06 19:30 | NUR ---
RECEIVED REPORT FROM [facility],PATIENT IS AWAKE FOLLOWED SIMPLE COMMAND PATIENT ON LEVOPHED DRIP INFUSING AT 6 MCG/MIN THRU PERIPHERAL LINE,MAINTENANCE IV D0.9NS WITH 20MEQKCL AT 150CC/HR ALSO IS INFUSING THRU PERIPHERAL LINE ON RIGHT FOREARM,SITE OF IV IS PATENT.PATIENT IS ON CONTINOUS FEEDING WITH JEVITY 1.5 AT 65CC/HR, GOING THRU PATIENT PEG,PATIENT IS TOLERATING HIS FEEDING AT THIS TIME, PATIENT RESPIRATION IS EASY NOT LABOURED ON 4 LITERS NASAL CANNULA SATURATING 98%.PATIENT HAS COURSE RHOCHI AND HAS CNGESTED COUGH W/C HE IS NOT ABLE TO EXPECTORATE.PATIENT HAS SUPRAPUBIC CATHETER URINE IS SPENCER COLORED,PATUENT IS AFEBRILE. Addendum: 06/07/19 at 033 by [facility] long line teamster ABOVE NOTE INTENTED FOR ANOTHER PATIENT MR LEYVA IN BED 6 Addendum: 06/07/19 at 0332 [facility] team[facility] AMSASHA ABOVE NOTE INTENTED FOR ANOTHER PATIENT.
[2019-06-06] MEDS: LATANOPROST 2.5 ML DROPS (XALATAN) OP SCH (20:33)
[2019-06-06] MEDS: HYDROCORTISONE 1%, 28.35 GM TOPICAL CREAM TP SCH (21:10)
[2019-06-06] MEDS: EMOLLIENT COMBINATION NO.73 78 GM CREAM..G. TP SCH (21:12)
[2019-06-07] VITALS (29 sets, daily range): BP systolic 1–158
[2019-06-07] MEDS: DILTIAZEM HCL 90 MG TABLET GT SCH ×5 (00:09→23:01)
[2019-06-07] MEDS: LevALBUTEROL HCL 1.25 MG/0.5 ML *CONC.* VIAL.NEB (XOPENEX CONC.) INH SCH ×4 (01:31→19:54)
[2019-06-07] MEDS: IPRATROPIUM BROM 0.5 MG/2.5 ML VIAL.NEB (ATROVENT) INH SCH ×4 (01:32→19:54)
[2019-06-07] MEDS: LORazepam 2 MG/ML VIAL IVP PRN ×4 (05:04→17:47)
[2019-06-07] MEDS: HYDROCORTISONE SOD SUCC 100 MG/2 ML VIAL IVP SCH ×2 (05:12→17:47)
[2019-06-07] MEDS: PIPERACILLIN/TAZO 4.5GM/DEX-IS 100 ML IV SCH ×3 (05:16→22:59)
[2019-06-07] MEDS: LEVOTHYROXINE SODIUM 0.025 MG TABLET GT SCH (06:07)
[2019-06-07 07:00] LABS: ALBUMIN 1.5 g/dL (3.4-4.8); CALCIUM 8.5 mg/dL (8.4-11.0); CREATININE 1.21 mg/dL (0.55-1.30); PHOSPHORUS 4.4 mg/dL (2.7-4.5); POTASSIUM 3.9 mmol/L (3.5-5.1); TOTAL BILIRUBIN 0.2 mg/dL (0.0-1.0)
--- NOTE | 2019-06-07 07:10 | NUR ---
RECEIVED NURSING REPORT FROM JULIANNA PATRICIA R.N
[2019-06-07] MEDS: ACETYLCYSTEINE 20% 4 ML VIAL (RT) INH SCH ×2 (07:41→19:55)
[2019-06-07] MEDS: PANTOPRAZOLE SODIUM 40 MG/VIAL (PROTONIX) IVP SCH (08:56)
[2019-06-07] MEDS: LINEZOLID 300 ML IV SCH ×2 (08:56→21:15)
[2019-06-07] MEDS: MORPHINE 2 MG/ML INJ. SYRINGE IVP PRN ×3 (08:57→17:49)
[2019-06-07] MEDS: NYSTATIN 15 GM TOPICAL POWDER TP SCH (08:59)
[2019-06-07] MEDS: BACLOFEN 10 MG TABLET GT SCH ×3 (09:00→21:16)
[2019-06-07] MEDS: VALPROIC ACID ORAL SYRUP 250 MG/5 ML UDC GT SCH ×3 (09:00→21:15)
[2019-06-07] MEDS: PARoxetine HCL 20 MG TABLET GT SCH ×2 (09:00→21:16)
[2019-06-07] MEDS: POTASSIUM CHLORIDE 20 MEQ/PKT PACKET PO SCH ×2 (09:00→21:16)
[2019-06-07] MEDS: FOLIC ACID 1 MG TABLET GT SCH (09:00)
[2019-06-07] MEDS: CITRIC ACID/SODIUM CITRATE 30 ML UDC GT SCH ×3 (09:00→21:15)
[2019-06-07] MEDS: amLODIPine BESYLATE 5 MG TABLET GT SCH (09:00)
[2019-06-07] MEDS: CHOLECALCIFEROL (VITAMIN D3) 2,000 UNIT TABLET GT SCH (09:00)
[2019-06-07] MEDS: DIPHENHYDRAMINE HCL 12.5 MG/5 ML UDC GT SCH (09:00)
[2019-06-07] MEDS: FLUDROCORTISONE ACETATE 0.1 MG TABLET( FLORINEF) GT SCH (09:00)
[2019-06-07] MEDS: ENOXAPARIN SODIUM 40 MG/0.4 ML SYRINGE SUBCUT SCH (09:00)
[2019-06-07] MEDS: METOPROLOL TARTRATE 50 MG TABLET GT SCH ×2 (09:00→21:16)
[2019-06-07] MEDS: CHOLESTYRAMINE/SUCROSE 4 GM/PACKET GT SCH (09:00)
[2019-06-07] MEDS: GEMFIBROZIL 600 MG TABLET (LOPID) GT SCH ×2 (09:00→21:15)
--- NOTE | 2019-06-07 09:50 | NUR ---
GIVE COMPLETE NURSING REPORT TO O.R NURSE, SENT PATIENT TO O.R FOR CENTRAL LINE PLACEMENT
[2019-06-07] MEDS ORDERED: fentaNYL CITRATE/PF 100 MCG/2 ML AMP IVP PRN ×2 (10:45)
[2019-06-07] MEDS ORDERED: MIDAZOLAM HCL 5 MG/ML VIAL (VERSED) IV ONE (11:10)
[2019-06-07] MEDS ORDERED: NS 1000 ML IV.SOLN IV ONE (11:10)
--- NOTE | 2019-06-07 11:15 | NUR ---
AT 1100 A.M, PATIENT TRANSFER FROM O.R TO ICU ROOM 4, HAD NEW CENTRAL LINE IN RIGHT INTRA JUGULAR TRIPLE LUMENS ANG GOOD BLOOD RETURN, RECEIVED REPORT FROM Dr. SAMSON, AT 1115 A.M, SEE PATIENT ORDERED REMOVED LEFT UPPER ARM OLD MIDLINE ( NO FUNCTION , AND TUBE WAS OUTED 90%), ORDERED FOLLOW UP STAT CHEST X-RAY Addendum: 06/07/19 at 1326 by Kg Lea RN AT 1100 A.M, PATIENT TRANSFER FROM O.R TO ICU ROOM 4, HAD NEW CENTRAL LINE IN RIGHT INTRA JUGULAR TRIPLE LUMENS ANG GOOD BLOOD RETURN, RECEIVED REPORT FROM Dr. POWERS, AT 1115 A.M, SEE PATIENT ORDERED REMOVED LEFT UPPER ARM OLD MIDLINE ( NO FUNCTION , AND TUBE WAS OUTED 90%), ORDERED FOLLOW UP STAT CHEST X-RAY AND CHANGED ALL IV TUBES
--- NOTE | 2019-06-07 11:27 | NUR ---
SEE PATIENT, ORDERED FOLLOW UP STAT ABG
[2019-06-07] MEDS: POTASSIUM CHLORIDE 10 MEQ in D5W 1,000 ML IV SCH (12:14)
[2019-06-07] MEDS: INSULIN LISPRO SLIDING SCALE 100 UNITS/ML VIAL (humaLOG) SUBCUT PRN ×3 (12:22→23:08)
--- NOTE | 2019-06-07 12:29 | NUR ---
1015 ASSISTED IN BAGGING PT TO O.R. FOR PROCEDURE AND BACK POST HALF HOUR. Addendum: 06/07/19 at 1232 by Stephani Herrmann RT Amended: Links added.
--- NOTE | 2019-06-07 12:40 | NUR ---
SEE PATIENT , AND UPDATED PATIENT,S CONDITION WITH PATIENT,S FATHER, ORDERED FOLLOW UP LAB IN A.M
--- NOTE | 2019-06-07 13:45 | NUR ---
Nutrition F/U RD reviewed pt's current EMR including diet Hx, physician notes, nursing notes, pertinent labs/meds/procedures, care trends and care activity. Current Nutrition Support: Vital AF 1.2 at 45ml/hr, Banatrol BID, FWF 150ml Q6H via GT Subjective information: Pt was not in room during visit earlier today. Per RN report, pt had EN support off since midnight last night and was brought to OR this morning for central line placement. RN also reported there was no residual this morning. Rectal tube in place w/ dark green and brown discharge of 100ml this morning per RN report. Current EN support remains appropriate and may be resumed once medically appropriate. Current PO intake: N/A on EN support Problem/Etiology/Signs/Symptoms Altered GI function r/t medication AEB flagyl and reports of diarrhea per nursing staff. *ongoing Expected Outcomes/Goals Monitor EN support and intake w/ goal of pt meeting at least 75% of estimated nutritional needs, labs trending WNL, normal GI function, skin integrity/wt maintenance. Dietitian Recommendations * Recommend resuming Vital AF 1.2 at 45 ml/hr, Banatrol BID, Free Water Flush: 150 ml Q6h via GT Provides: 1296 kcal/day, 81 gm protein/day, and 1476 ml free water/day Meets: 88% of lower end of estimated caloric needs and 101% of upper end of estimated protein needs Follow Up High Risk: F/U in 2-3 days
--- NOTE | 2019-06-07 13:49 | NUR ---
Dietitian Recommendations * Recommend resuming Vital AF 1.2 at 45 ml/hr, Banatrol BID, Free Water Flush: 150 ml Q6h via GT Provides: 1296 kcal/day, 81 gm protein/day, and 1476 ml free water/day Meets: 88% of lower end of estimated caloric needs and 101% of upper end of estimated protein needs Please see Nutrition F/U note for details. NURSING HOME, RD
[2019-06-07] MEDS: INSULIN NPH 100 UNITS/ML 10 ML VIAL SUBCUT SCH ×2 (17:00→17:51)
[2019-06-07] MEDS: FLUCONAZOLE 100 mg/ NS 50 ML IV SCH (17:47)
--- NOTE | 2019-06-07 19:26 | NUR ---
GIVE COMPLETE NURSING REPORT TO SEWAGE PLANT OPERATORMAXI XIAO R.N
--- NOTE | 2019-06-07 19:55 | NUR ---
Opening Note Pt in bed asleep. Sr on the monitor, Pt has ETT in place. AC 12, TV 280, FIO2 35%, and PEEP 8. Pt tolerating well, no s/s of distress noted. Pt has RIJ TLC in that was inserted today. IV site looks C/D/I. No leakage noted, all lines able to be flushed. Good blood return. Dressing change due 06/13/19. Pt has G-tube in place running TF, 10cc residual noted. Pt tolerating feedings well. Pt has Lema catheter in place and flexiseal in pace. No leakage noted. Draining to gravity. Pt has Rt wrist restraint in place for attempting to pull out tubes. Skin intact, no breakdown noted. Bed locked in lowest position, call light in reach and safety precautions in place. Will continue to monitor.
[2019-06-07] MEDS: LATANOPROST 2.5 ML DROPS (XALATAN) OP SCH (21:15)
[2019-06-07] MEDS: HYDROCORTISONE 1%, 28.35 GM TOPICAL CREAM TP SCH (21:17)
[2019-06-07] MEDS: EMOLLIENT COMBINATION NO.73 78 GM CREAM..G. TP SCH (21:17)
[2019-06-08] VITALS (30 sets, daily range): BP systolic 93–162
--- NOTE | 2019-06-08 00:17 | NUR ---
RN Rounds Pt in bed asleep. No s/s of distress noted. G-tube n9oted with no residual. 150ml H20 flush given. IVF infusing. No s/s of infiltration noted. Lema and flexiseal draining to gravity, no oleakage noted. Will continue to monitor.
[2019-06-08] MEDS: IPRATROPIUM BROM 0.5 MG/2.5 ML VIAL.NEB (ATROVENT) INH SCH ×4 (01:08→20:03)
[2019-06-08] MEDS: LevALBUTEROL HCL 1.25 MG/0.5 ML *CONC.* VIAL.NEB (XOPENEX CONC.) INH SCH ×4 (01:08→20:03)
--- NOTE | 2019-06-08 04:06 | NUR ---
RN Round Pt in bed asleep. No s/s of distress noted. Pt tolerating TF well, no minimal residual noted. Pt IVF infusing throuhg TLC. Central line site C/D/I, no leakage noted. Will continue to monitor.
[2019-06-08] MEDS: PIPERACILLIN/TAZO 4.5GM/DEX-IS 100 ML IV SCH ×3 (05:40→22:46)
[2019-06-08] MEDS: DILTIAZEM HCL 90 MG TABLET GT SCH ×4 (05:41→23:01)
[2019-06-08] MEDS: LEVOTHYROXINE SODIUM 0.025 MG TABLET GT SCH (05:41)
[2019-06-08] MEDS: HYDROCORTISONE SOD SUCC 100 MG/2 ML VIAL IVP SCH ×2 (05:41→17:32)
[2019-06-08] MEDS: POTASSIUM CHLORIDE 10 MEQ in D5W 1,000 ML IV SCH (05:59)
[2019-06-08] MEDS: INSULIN LISPRO SLIDING SCALE 100 UNITS/ML VIAL (humaLOG) SUBCUT PRN ×3 (05:59→17:34)
[2019-06-08] MEDS: INSULIN NPH 100 UNITS/ML 10 ML VIAL SUBCUT SCH ×2 (06:02→17:31)
[2019-06-08 06:10] LABS: BASOPHILS % (AUTO) 0.3 % (0.0-2.0); HEMATOCRIT 30.2 % (36-54); LYMPHOCYTES # (AUTO) 1.9 K/uL (1.0-5.5); LYMPHOCYTES % (AUTO) 15.3 % (20.5-51.5); MEAN CORPUSCULAR HEMOGLOBIN 30 pg (27-31); MEAN CORPUSCULAR HGB CONC 33 % (32-36); MEAN CORPUSCULAR VOLUME 90 fL (79.0-98.0); MONOCYTES # (AUTO) 0.6 K/uL (0.0-1.0); NEUTROPHILS % (AUTO) 79.4 % (40.0-70.0); PLATELET COUNT (AUTO) 387 K/uL (130-430); RED BLOOD CELL COUNT(AUTO) 3.36 MIL/uL (4.2-6.2); RED CELL DISTRIBUTION WIDTH 21.6 % (9.0-15.0); WHITE BLOOD COUNT (AUTO) 12.6 K/uL (4.8-10.8)
[2019-06-08 06:34] LABS: ALBUMIN 1.6 g/dL (3.4-4.8); CALCIUM 8.4 mg/dL (8.4-11.0); CREATININE 1.23 mg/dL (0.55-1.30); PHOSPHORUS 4.5 mg/dL (2.7-4.5); POTASSIUM 3.7 mmol/L (3.5-5.1); TOTAL BILIRUBIN 0.1 mg/dL (0.0-1.0)
--- NOTE | 2019-06-08 06:47 | NUR ---
Closing Note Pt in bed asleep. SR on the monitor, Vent settings remain the same. Pt has Central line in place, no leakage noted. Pt has IVF infusing. G-tube in place, running TF, no residual noted. Pt tolerating well. Pt has flexiseal and laureano catheter in place draining to gravity. No leakage noted. Will endorse to oncoming RN.
--- NOTE | 2019-06-08 07:05 | NUR ---
Endorsement Report given to oncoming RN at bedside via SBAR approach.
--- NOTE | 2019-06-08 07:07 | NUR ---
RECEIVED NURSING REPORT FROM JULIANNA XIAO R.N
[2019-06-08] MEDS: ACETYLCYSTEINE 20% 4 ML VIAL (RT) INH SCH ×3 (07:08→20:07)
[2019-06-08] MEDS: CITRIC ACID/SODIUM CITRATE 30 ML UDC GT SCH ×3 (08:14→20:17)
[2019-06-08] MEDS: LINEZOLID 300 ML IV SCH (08:14)
[2019-06-08] MEDS: METOPROLOL TARTRATE 50 MG TABLET GT SCH ×2 (08:16→20:18)
[2019-06-08] MEDS: POTASSIUM CHLORIDE 20 MEQ/PKT PACKET PO SCH ×2 (08:16→20:17)
[2019-06-08] MEDS: FLUDROCORTISONE ACETATE 0.1 MG TABLET( FLORINEF) GT SCH (08:17)
[2019-06-08] MEDS: PARoxetine HCL 20 MG TABLET GT SCH ×2 (08:17→20:18)
[2019-06-08] MEDS: FOLIC ACID 1 MG TABLET GT SCH (08:17)
[2019-06-08] MEDS: GEMFIBROZIL 600 MG TABLET (LOPID) GT SCH ×2 (08:17→20:17)
[2019-06-08] MEDS: BACLOFEN 10 MG TABLET GT SCH ×3 (08:17→20:18)
[2019-06-08] MEDS: CHOLECALCIFEROL (VITAMIN D3) 2,000 UNIT TABLET GT SCH (08:17)
[2019-06-08] MEDS: PANTOPRAZOLE SODIUM 40 MG/VIAL (PROTONIX) IVP SCH (08:17)
[2019-06-08] MEDS: NYSTATIN 15 GM TOPICAL POWDER TP SCH (08:18)
[2019-06-08] MEDS: amLODIPine BESYLATE 5 MG TABLET GT SCH (08:18)
[2019-06-08] MEDS: VALPROIC ACID ORAL SYRUP 250 MG/5 ML UDC GT SCH ×3 (08:19→20:17)
[2019-06-08] MEDS: ENOXAPARIN SODIUM 40 MG/0.4 ML SYRINGE SUBCUT SCH (08:20)
[2019-06-08] MEDS: MORPHINE 2 MG/ML INJ. SYRINGE IVP PRN ×3 (08:32→22:46)
[2019-06-08] MEDS: CHOLESTYRAMINE/SUCROSE 4 GM/PACKET GT SCH (08:33)
[2019-06-08] MEDS: DIPHENHYDRAMINE HCL 12.5 MG/5 ML UDC GT SCH (08:33)
--- NOTE | 2019-06-08 09:51 | NUR ---
AT 0935 A.M, SEE PATIENT, ORDERED FOLLOW UP CBC, CMP, ABG, CHEST X-RAY IN TOMORROW A.M
[2019-06-08] MEDS: LORazepam 2 MG/ML VIAL IVP PRN ×2 (11:31→22:04)
[2019-06-08] MEDS: cloNIDine HCL 0.3 MG/24 HR PATCH.TDWK TD SCH (11:54)
--- NOTE | 2019-06-08 15:10 | NUR ---
SEE PATIENT, ORDERED DISCONTINUE ZYVOX
--- NOTE | 2019-06-08 17:19 | NUR ---
AT 1650 P.M , SEE PATIENT ORDERED RENEW RESTRAINT ORDER AND FOLLOW UP LAB IN A.M
[2019-06-08] MEDS: FLUCONAZOLE 100 mg/ NS 50 ML IV SCH (17:33)
[2019-06-08] MEDS ORDERED: LOPERAMIDE HCL 2 MG CAPSULE PO ONE (18:30)
[2019-06-08] MEDS ORDERED: LOPERAMIDE HCL 2 MG CAPSULE GT PRN (18:30)
--- NOTE | 2019-06-08 19:20 | NUR ---
GIVE COMPLETE NURSING REPORT TO RESIDENTIAL SUPERVISORMAXI XIAO R.N
--- NOTE | 2019-06-08 19:52 | NUR ---
Opening Note Pt in bed asleep. SR on the monitor, Pt has ETT in place. AC 12, TV 280, FIO2 35%, and PEEP 8. Pt tolerating well, no s/s of distress noted. Pt has RIJ TLC. IV site looks C/D/I. No leakage noted, all lines able to be flushed. Good blood return. Dressing change due 06/13/19. Pt has G-tube in place running TF, no residual noted. Pt tolerating feedings well. Pt has Lema catheter in place and flexiseal in pace. No leakage noted. Draining to gravity. Pt has Rt wrist restraint in place for attempting to pull out tubes. Skin intact, no breakdown noted. Bed locked in lowest position, call light in reach and safety precautions in place. Will continue to monitor.
[2019-06-08] MEDS: LOPERAMIDE HCL 2 MG CAPSULE GT SCH (20:17)
[2019-06-08] MEDS: LATANOPROST 2.5 ML DROPS (XALATAN) OP SCH (20:18)
[2019-06-08] MEDS: EMOLLIENT COMBINATION NO.73 78 GM CREAM..G. TP SCH (20:18)
[2019-06-08] MEDS: HYDROCORTISONE 1%, 28.35 GM TOPICAL CREAM TP SCH (20:19)
[2019-06-09] VITALS (30 sets, daily range): BP systolic 105–150
[2019-06-09] MEDS: IPRATROPIUM BROM 0.5 MG/2.5 ML VIAL.NEB (ATROVENT) INH SCH ×4 (01:04→20:00)
[2019-06-09] MEDS: LevALBUTEROL HCL 1.25 MG/0.5 ML *CONC.* VIAL.NEB (XOPENEX CONC.) INH SCH ×4 (01:04→20:00)
--- NOTE | 2019-06-09 01:09 | NUR ---
RN Rounds Pt in bed asleep. No s/s of distress noted. Pt VSS. Tolerating tubefeeding well. Will continue to monitor.
--- NOTE | 2019-06-09 04:10 | NUR ---
RN Rounds Pt in bed asleep. No s/s of distress noted. VSS. No residual noted from G-tube. Tolerating feedings well. Will continue to monitor.
[2019-06-09] MEDS: PIPERACILLIN/TAZO 4.5GM/DEX-IS 100 ML IV SCH ×3 (05:45→21:05)
[2019-06-09] MEDS: HYDROCORTISONE SOD SUCC 100 MG/2 ML VIAL IVP SCH ×2 (05:45→17:24)
[2019-06-09] MEDS: LEVOTHYROXINE SODIUM 0.025 MG TABLET GT SCH (05:46)
[2019-06-09] MEDS: DILTIAZEM HCL 90 MG TABLET GT SCH ×4 (05:47→23:31)
[2019-06-09 06:09] LABS: BASOPHILS % (AUTO) 0.3 % (0.0-2.0); EOSINOPHILS # (AUTO) 0.1 K/uL (0.0-0.4); EOSINOPHILS % (AUTO) 0.4 % (0.0-4.0); HEMATOCRIT 29.5 % (36-54); HEMOGLOBIN 9.7 g/dL (14.0-18.0); LYMPHOCYTES # (AUTO) 2.3 K/uL (1.0-5.5); LYMPHOCYTES % (AUTO) 16.2 % (20.5-51.5); MEAN CORPUSCULAR HEMOGLOBIN 30 pg (27-31); MEAN CORPUSCULAR HGB CONC 33 % (32-36); MEAN CORPUSCULAR VOLUME 90 fL (79.0-98.0); MONOCYTES # (AUTO) 1.1 K/uL (0.0-1.0); MONOCYTES % (AUTO) 7.5 % (1.7-9.3); NEUTROPHILS # (AUTO) 10.9 K/uL (1.8-7.7); NEUTROPHILS % (AUTO) 75.6 % (40.0-70.0); PLATELET COUNT (AUTO) 431 K/uL (130-430); RED BLOOD CELL COUNT(AUTO) 3.28 MIL/uL (4.2-6.2); RED CELL DISTRIBUTION WIDTH 21.1 % (9.0-15.0); WHITE BLOOD COUNT (AUTO) 14.4 K/uL (4.8-10.8)
[2019-06-09] MEDS: INSULIN NPH 100 UNITS/ML 10 ML VIAL SUBCUT SCH ×2 (06:21→17:31)
[2019-06-09 06:44] LABS: ALBUMIN 1.6 g/dL (3.4-4.8); CALCIUM 8.5 mg/dL (8.4-11.0); CREATININE 1.32 mg/dL (0.55-1.30); POTASSIUM 3.9 mmol/L (3.5-5.1); TOTAL BILIRUBIN 0.2 mg/dL (0.0-1.0)
--- NOTE | 2019-06-09 07:07 | NUR ---
RECEIVED NURSING REPORT FROM JULIANNA XIAO R.N
--- NOTE | 2019-06-09 07:16 | NUR ---
Endorsement Report given to oncoming RN at bedside via SBAR approach.
[2019-06-09] MEDS: ACETYLCYSTEINE 20% 4 ML VIAL (RT) INH SCH ×3 (08:04→20:04)
[2019-06-09] MEDS: POTASSIUM CHLORIDE 20 MEQ/PKT PACKET PO SCH ×2 (08:27→21:04)
[2019-06-09] MEDS: DIPHENHYDRAMINE HCL 12.5 MG/5 ML UDC GT SCH (08:27)
[2019-06-09] MEDS: CHOLESTYRAMINE/SUCROSE 4 GM/PACKET GT SCH (08:27)
[2019-06-09] MEDS: CITRIC ACID/SODIUM CITRATE 30 ML UDC GT SCH ×3 (08:28→21:03)
[2019-06-09] MEDS: amLODIPine BESYLATE 5 MG TABLET GT SCH (08:28)
[2019-06-09] MEDS: GEMFIBROZIL 600 MG TABLET (LOPID) GT SCH ×2 (08:29→21:04)
[2019-06-09] MEDS: METOPROLOL TARTRATE 50 MG TABLET GT SCH ×2 (08:29→21:05)
--- NOTE | 2019-06-09 08:29 | NUR ---
SEE PATIENT , ORDERED GIVE LASIX 20 MG IVP X ONCE, FOLLOW UP CBC, CMP IN TOMORROW A.M
[2019-06-09] MEDS: FOLIC ACID 1 MG TABLET GT SCH (08:30)
[2019-06-09] MEDS: CHOLECALCIFEROL (VITAMIN D3) 2,000 UNIT TABLET GT SCH (08:30)
[2019-06-09] MEDS: VALPROIC ACID ORAL SYRUP 250 MG/5 ML UDC GT SCH ×3 (08:30→21:04)
[2019-06-09] MEDS: BACLOFEN 10 MG TABLET GT SCH ×3 (08:30→21:04)
[2019-06-09] MEDS: PANTOPRAZOLE SODIUM 40 MG/VIAL (PROTONIX) IVP SCH (08:31)
[2019-06-09] MEDS: PARoxetine HCL 20 MG TABLET GT SCH ×2 (08:31→21:04)
[2019-06-09] MEDS: LOPERAMIDE HCL 2 MG CAPSULE GT SCH ×3 (08:33→21:04)
[2019-06-09] MEDS: MORPHINE 2 MG/ML INJ. SYRINGE IVP PRN ×2 (08:34→11:13)
[2019-06-09] MEDS: ENOXAPARIN SODIUM 40 MG/0.4 ML SYRINGE SUBCUT SCH (08:35)
[2019-06-09] MEDS: NYSTATIN 15 GM TOPICAL POWDER TP SCH (08:35)
--- NOTE | 2019-06-09 08:50 | NUR ---
SEE PATIENT, KEEP SAME CARDIOLOGY ORDER
--- NOTE | 2019-06-09 09:17 | NUR ---
GIVE COMPLETE NURSING REPORT TO LINOTYPE MECHANICMAXI XIAO R.N
[2019-06-09] MEDS: FUROSEMIDE 20 MG/2 ML VIAL IVP SCH ×2 (09:36→21:04)
[2019-06-09] MEDS: FLUDROCORTISONE ACETATE 0.1 MG TABLET( FLORINEF) GT SCH (09:39)
[2019-06-09] MEDS: POTASSIUM CHLORIDE 10 MEQ in D5W 1,000 ML IV SCH (09:39)
[2019-06-09] MEDS: LORazepam 2 MG/ML VIAL IVP PRN (11:13)
[2019-06-09] MEDS: INSULIN LISPRO SLIDING SCALE 100 UNITS/ML VIAL (humaLOG) SUBCUT PRN ×3 (11:14→23:31)
--- NOTE | 2019-06-09 12:10 | NUR ---
SEE PATIENT, ORDERED RENEW RESTRAINT ORDER, AND IMODIUM DOSE O.K TO INCREASE TO 8 MG ( ROUTINE DOSE + PRN DOSE )
--- NOTE | 2019-06-09 14:25 | NUR ---
SEE PATIENT WAS AWARE FERRITIN LEVEL 991
--- NOTE | 2019-06-09 15:12 | NUR ---
Discharge Planning Patient's father requested information on upgrading patient's hospital bed. JAIL OFFICER met with patient's father. Discussed that an upgrade in hospital bed at home is probably not possible. The bed at home raises the head. No special mattress. Would need to know patient's discharge needs and have a doctor's order. Patient may also need short term LTAC placement prior to returning home post trach/vent. Offered support. Notified DC Coordinator Antionette who will follow up closer to discharge.
--- NOTE | 2019-06-09 15:23 | NUR ---
Dr. STINSON SEE PATIENT AND UPDATED PATIENT,S CONDITION AND EXPLAIN THE TRACHEOSTOMY PROCEDURE WITH PATIENT,S FATHER AT BEDSIDE, THEN PATIENT,S PARENTS WAS AGREED ON TRACHEOSTOMY FOR PATIENT, ORDERED CONSULT , CHARGE NURSE KIYA AWARE TOO
--- NOTE | 2019-06-09 16:00 | NUR ---
CALLED BACK, VERBALIZED: WILL ON TRACHEOSTOMY SCHEDULE FOR PATIENT
--- NOTE | 2019-06-09 17:00 | NUR ---
SEE PATIENT, ORDERED INCREASED DIFLUCAN DOSE TO 200 MG IVPB DAILY
[2019-06-09] MEDS: FLUCONAZOLE 200 mg/ NS 100 ML IV SCH (17:24)
--- NOTE | 2019-06-09 19:55 | NUR ---
Opening Note Pt in bed asleep. SR on the monitor, Pt has ETT in place. AC 12, TV 280, FIO2 35%, and PEEP 8. Pt tolerating well, no s/s of distress noted. Pt has RIJ TLC. IV site looks C/D/I. No leakage noted, all lines able to be flushed. Good blood return. Pt has G-tube in place running TF, no residual noted. Pt tolerating feedings well. Pt has Lema catheter in place and flexiseal in place. No leakage noted. Draining to gravity. Pt has Imodium to help with loose stools. Pt has Rt wrist restraint in place for attempting to pull out tubes. Skin intact, no breakdown noted. Bed locked in lowest position, call light in reach and safety precautions in place. Will continue to monitor.
[2019-06-09] MEDS: LATANOPROST 2.5 ML DROPS (XALATAN) OP SCH (21:05)
[2019-06-09] MEDS: EMOLLIENT COMBINATION NO.73 78 GM CREAM..G. TP SCH (21:05)
[2019-06-09] MEDS: HYDROCORTISONE 1%, 28.35 GM TOPICAL CREAM TP SCH (21:06)
[2019-06-10] VITALS (32 sets, daily range): BP systolic 100–137
--- NOTE | 2019-06-10 00:11 | NUR ---
RN Rounds Pt in bed asleep. No s/s of distress noted. Pt VSS. Tolerating feedings well, Accucheck done and water flush given. Will continue to monitor.
[2019-06-10] MEDS: IPRATROPIUM BROM 0.5 MG/2.5 ML VIAL.NEB (ATROVENT) INH SCH ×4 (01:21→19:26)
[2019-06-10] MEDS: LevALBUTEROL HCL 1.25 MG/0.5 ML *CONC.* VIAL.NEB (XOPENEX CONC.) INH SCH ×4 (01:21→19:26)
--- NOTE | 2019-06-10 04:03 | NUR ---
RN Rounds Pt in bed asleep. Alert to touch. Pt VSS. No s/s of distress noted. Pt is afebrile. Will continue to monitor.
[2019-06-10] MEDS: POTASSIUM CHLORIDE 10 MEQ in D5W 1,000 ML IV SCH (04:22)
[2019-06-10] MEDS: LEVOTHYROXINE SODIUM 0.025 MG TABLET GT SCH (05:33)
[2019-06-10] MEDS: HYDROCORTISONE SOD SUCC 100 MG/2 ML VIAL IVP SCH ×2 (05:34→17:53)
[2019-06-10] MEDS: DILTIAZEM HCL 90 MG TABLET GT SCH ×4 (05:34→23:47)
[2019-06-10] MEDS: PIPERACILLIN/TAZO 4.5GM/DEX-IS 100 ML IV SCH ×3 (05:35→21:27)
[2019-06-10] MEDS: INSULIN LISPRO SLIDING SCALE 100 UNITS/ML VIAL (humaLOG) SUBCUT PRN ×4 (05:38→23:49)
[2019-06-10 05:47] LABS: BASOPHILS % (AUTO) 0.1 % (0.0-2.0); EOSINOPHILS # (AUTO) 0.1 K/uL (0.0-0.4); EOSINOPHILS % (AUTO) 0.8 % (0.0-4.0); HEMOGLOBIN 8.9 g/dL (14.0-18.0); LYMPHOCYTES # (AUTO) 2.6 K/uL (1.0-5.5); LYMPHOCYTES % (AUTO) 17.6 % (20.5-51.5); MEAN CORPUSCULAR HEMOGLOBIN 29 pg (27-31); MEAN CORPUSCULAR HGB CONC 32 % (32-36); MEAN CORPUSCULAR VOLUME 91 fL (79.0-98.0); MONOCYTES # (AUTO) 1.1 K/uL (0.0-1.0); MONOCYTES % (AUTO) 7.4 % (1.7-9.3); NEUTROPHILS # (AUTO) 10.9 K/uL (1.8-7.7); NEUTROPHILS % (AUTO) 74.1 % (40.0-70.0); PLATELET COUNT (AUTO) 383 K/uL (130-430); RED BLOOD CELL COUNT(AUTO) 3.07 MIL/uL (4.2-6.2); RED CELL DISTRIBUTION WIDTH 21.6 % (9.0-15.0); WHITE BLOOD COUNT (AUTO) 14.8 K/uL (4.8-10.8)
[2019-06-10] MEDS: INSULIN NPH 100 UNITS/ML 10 ML VIAL SUBCUT SCH ×2 (06:14→17:57)
[2019-06-10 06:20] LABS: ALBUMIN 1.8 g/dL (3.4-4.8); CALCIUM 7.9 mg/dL (8.4-11.0); CREATININE 1.61 mg/dL (0.55-1.30); POTASSIUM 4.7 mmol/L (3.5-5.1); TOTAL BILIRUBIN 0.1 mg/dL (0.0-1.0)
--- NOTE | 2019-06-10 07:22 | NUR ---
Endorsement Report given to oncoming RN at bedside via SBAR approach.
--- NOTE | 2019-06-10 07:25 | NUR ---
Opening Note Received patient report via SBAR from [facility] nurse
[2019-06-10] MEDS: ACETYLCYSTEINE 20% 4 ML VIAL (RT) INH SCH ×3 (07:37→21:01)
--- NOTE | 2019-06-10 08:30 | NUR ---
MD Sheri Glasgow at bedside assessing patient, physician entered orders. Addendum: 06/10/19 at 1014 by Gabriel De Leon RN Dr. Goldberg at bedside assessing patient, physician entered orders
[2019-06-10] MEDS: PANTOPRAZOLE SODIUM 40 MG/VIAL (PROTONIX) IVP SCH (09:17)
[2019-06-10] MEDS: DIPHENHYDRAMINE HCL 12.5 MG/5 ML UDC GT SCH (09:17)
[2019-06-10] MEDS: CITRIC ACID/SODIUM CITRATE 30 ML UDC GT SCH ×3 (09:18→21:27)
[2019-06-10] MEDS: VALPROIC ACID ORAL SYRUP 250 MG/5 ML UDC GT SCH ×3 (09:18→21:28)
[2019-06-10] MEDS: BACLOFEN 10 MG TABLET GT SCH ×3 (09:18→21:30)
[2019-06-10] MEDS: PARoxetine HCL 20 MG TABLET GT SCH ×2 (09:18→21:31)
[2019-06-10] MEDS: POTASSIUM CHLORIDE 20 MEQ/PKT PACKET PO SCH ×2 (09:18→21:31)
[2019-06-10] MEDS: CHOLESTYRAMINE/SUCROSE 4 GM/PACKET GT SCH (09:18)
[2019-06-10] MEDS: GEMFIBROZIL 600 MG TABLET (LOPID) GT SCH ×2 (09:19→21:30)
[2019-06-10] MEDS: METOPROLOL TARTRATE 50 MG TABLET GT SCH ×2 (09:19→21:32)
[2019-06-10] MEDS: amLODIPine BESYLATE 5 MG TABLET GT SCH (09:19)
[2019-06-10] MEDS: FLUDROCORTISONE ACETATE 0.1 MG TABLET( FLORINEF) GT SCH (09:19)
[2019-06-10] MEDS: FOLIC ACID 1 MG TABLET GT SCH (09:19)
[2019-06-10] MEDS: LOPERAMIDE HCL 2 MG CAPSULE GT SCH ×2 (09:19→13:59)
[2019-06-10] MEDS: CHOLECALCIFEROL (VITAMIN D3) 2,000 UNIT TABLET GT SCH (09:20)
[2019-06-10] MEDS: ENOXAPARIN SODIUM 40 MG/0.4 ML SYRINGE SUBCUT SCH (09:21)
[2019-06-10] MEDS: NYSTATIN 15 GM TOPICAL POWDER TP SCH (09:22)
--- NOTE | 2019-06-10 09:30 | NUR ---
Round Dr. Suarez at bedside assessing patient, no new orders
--- NOTE | 2019-06-10 10:00 | NUR ---
Round Dr. Lerma at bedside, physician entered orders
--- NOTE | 2019-06-10 11:40 | NUR ---
Round Dr. Montana at bedside assessing patient, no new orders
--- NOTE | 2019-06-10 11:40 | NUR ---
Nutrition F/U RD reviewed pt's current EMR including diet Hx, physician notes, nursing notes, pertinent labs/meds/procedures, care trends and care activity. Current Nutrition Support: Vital AF 1.2 at 45ml/hr, Banatrol BID, Free Water Flush: 150 ml Q6h via GT x19 days Subjective information: Pt was seen sleeping, intubated on vent support w/ TF infusing as per physician order. Per RN, pt has been tolerating TF well, 5 ml residuals today. Pt continues w/ rectal tube and loose stool -- per EMR, stool output: 400 ml 06/10/19. RN reported that pt has been receiving Banatrol TID, as well as imodium to help w/ diarrhea. No pending plans/procedures today per RN. Current PO intake: N/A on EN support Problem/Etiology/Signs/Symptoms Altered GI function r/t medication AEB flagyl and reports of diarrhea per nursing staff. *ongoing Expected Outcomes/Goals Monitor EN support and intake w/ goal of pt meeting at least 75% of estimated nutritional needs, labs trending WNL, normal GI function, skin integrity/wt maintenance. Dietitian Recommendations * Recommend continuing Vital AF 1.2 at 45 ml/hr, Banatrol BID, Free Water Flush: 150 ml Q6h via GT Provides: 1296 kcal/day, 81 gm protein/day, and 1476 ml free water/day Meets: 88% of lower end of estimated caloric needs and 101% of upper end of estimated protein needs Follow Up High Risk: F/U in 2-3 days
--- NOTE | 2019-06-10 11:45 | NUR ---
Dietitian Recommendations * Recommend continuing Vital AF 1.2 at 45 ml/hr, Banatrol BID, Free Water Flush: 150 ml Q6h via GT Provides: 1296 kcal/day, 81 gm protein/day, and 1476 ml free water/day Meets: 88% of lower end of estimated caloric needs and 101% of upper end of estimated protein needs LP, RD Please refer to Nutrition F/U for details.
--- NOTE | 2019-06-10 14:30 | NUR ---
Nursing Note Patient given CHG bath, gown changed, linens changed, and repositioned. Patient tolerated well
--- NOTE | 2019-06-10 16:50 | NUR ---
MD Call Dr. Benitez called regarding patient, physician to contact family
[2019-06-10] MEDS ORDERED: LOPERAMIDE HCL 2 MG CAPSULE GT PRN (17:00)
--- NOTE | 2019-06-10 17:00 | NUR ---
Round Dr. Peterosn at bedside assessing patient, physician entered orders
[2019-06-10] MEDS: FLUCONAZOLE 200 mg/ NS 100 ML IV SCH (17:54)
--- NOTE | 2019-06-10 19:03 | NUR ---
Nursing Note Patient report given via SBAR to nightshift nurse
--- NOTE | 2019-06-10 19:37 | NUR ---
Pt resting in bed awake and non-verbal. Skin warm and dry to touch. No signs or symptoms of hypoglycemia or hyperglycemia noted. IVF of D5W W/ 10meq KCL infusing well at 30ml/hr via RIJ with the dressing CDI. ETT in place and connected to Vent with settings of AC 12, TV 280, FIO2 35% and Peep 5. Pt is tolerating vent settings well. No respiratory distress noted. Pt is tolerating GTF of Vital AF at 45ml/hr. Rt arm wrist restraint is on and no circulatory impairment noted. Lema cath to gravity drainage patent with clear yellowish urine. Rectal tube to gravity noted with watery brownish stool and no leakage noted. Fall, seizure and safety precautions are in place.
[2019-06-10] MEDS: EMOLLIENT COMBINATION NO.73 78 GM CREAM..G. TP SCH (21:29)
[2019-06-10] MEDS: LATANOPROST 2.5 ML DROPS (XALATAN) OP SCH (21:29)
[2019-06-10] MEDS: HYDROCORTISONE 1%, 28.35 GM TOPICAL CREAM TP SCH (21:30)
[2019-06-10] MEDS: DIPHENOXYLATE HCL/ATROP SULF 2.5 MG TAB PO SCH (21:31)
--- NOTE | 2019-06-10 21:31 | NUR ---
Scheduled HS medications given. Pt is tolerating GTF and Vent settings well. Father is visiting at the bedside. Fall, seizure and safety precautions are in place.
--- NOTE | 2019-06-10 23:00 | NUR ---
Not in any distress at this time. Pt's father left for the night. GTF and IVF are infusing well. Still tolerating vent settings and GTF well. Fall, seizure and safety precautions are in place.
--- NOTE | 2019-06-10 23:49 | NUR ---
Accucheck 188 and 2 units Humalog Insulin given SQ. Skin remains warm and dry to touch. IVF and GTF are infusing well.
[2019-06-11] VITALS (33 sets, daily range): BP systolic 121–162
--- NOTE | 2019-06-11 00:10 | NUR ---
ASSUMPTION OF CARE REPORT RECEIVED FROM FORREST KIM. PT RECEIVED IN BED WITH EYES OPEN, RESPONDING TO TACTILE STIMULATION. VSS, NO S/S OF ACUTE DISTRESS NOTED. PT INTUBATED, VENT SETTINGS: AC 12, TV 280, FIO2 35%, PEEP 8. SR ON MONITOR. RIJ TLC INFUSING D5W + 20 KCL @ 30 CC/HR. R SOFT WRIST RESTRAINT IN PLACE, NO S/S OF INJURY NOTED. G TUBE RUNNING VITAL AF TF @ 45 CC/HR. MENDOZA CATH IN PLACE DRAINING YELLOW URINE TO GRAVITY. FLEXI SEAL IN PLACE DRAINING LOOSE STOOL TO GRAVITY. HOB ELEVATED, BED IN LOWEST POSITION, CALL LIGHT IN REACH. WILL CONTINUE TO MONITOR PT.
--- NOTE | 2019-06-11 00:10 | NUR ---
Nursing care of pt endorsed to nurse Hobson.
[2019-06-11] MEDS: LevALBUTEROL HCL 1.25 MG/0.5 ML *CONC.* VIAL.NEB (XOPENEX CONC.) INH SCH ×4 (00:55→20:31)
[2019-06-11] MEDS: IPRATROPIUM BROM 0.5 MG/2.5 ML VIAL.NEB (ATROVENT) INH SCH ×4 (00:55→20:31)
[2019-06-11] MEDS ORDERED: LevALBUTEROL HCL 1.25 MG/0.5 ML *CONC.* VIAL.NEB (XOPENEX CONC.) INH ONE (01:02)
[2019-06-11] MEDS: DILTIAZEM HCL 90 MG TABLET GT SCH ×4 (05:27→23:26)
[2019-06-11] MEDS: HYDROCORTISONE SOD SUCC 100 MG/2 ML VIAL IVP SCH ×2 (05:27→17:08)
[2019-06-11] MEDS: LEVOTHYROXINE SODIUM 0.025 MG TABLET GT SCH (05:27)
[2019-06-11] MEDS: PIPERACILLIN/TAZO 4.5GM/DEX-IS 100 ML IV SCH ×3 (05:27→22:10)
[2019-06-11] MEDS: INSULIN LISPRO SLIDING SCALE 100 UNITS/ML VIAL (humaLOG) SUBCUT PRN ×3 (05:31→17:31)
[2019-06-11] MEDS: INSULIN NPH 100 UNITS/ML 10 ML VIAL SUBCUT SCH ×2 (06:02→17:12)
[2019-06-11 06:41] LABS: CALCIUM 8.6 mg/dL (8.4-11.0); CREATININE 1.63 mg/dL (0.55-1.30); POTASSIUM 4.9 mmol/L (3.5-5.1); TOTAL BILIRUBIN 0.2 mg/dL (0.0-1.0)
[2019-06-11 06:44] LABS: HEMATOCRIT 29.3 % (36-54); HEMOGLOBIN 9.6 g/dL (14.0-18.0); MEAN CORPUSCULAR HEMOGLOBIN 30 pg (27-31); MEAN CORPUSCULAR HGB CONC 33 % (32-36); MEAN CORPUSCULAR VOLUME 92 fL (79.0-98.0); PLATELET COUNT (AUTO) 439 K/uL (130-430); RED BLOOD CELL COUNT(AUTO) 3.17 MIL/uL (4.2-6.2); RED CELL DISTRIBUTION WIDTH 21.8 % (9.0-15.0)
[2019-06-11 06:57] LABS: WHITE BLOOD COUNT (AUTO) 22.4 K/uL (4.8-10.8)
--- NOTE | 2019-06-11 07:20 | NUR ---
AM ASSESSMENT Pt received from night RN using SBAR.
[2019-06-11 07:22] LABS: ATYPICAL LYMPHOCYTES % 0 % (0-0); BAND % (MANUAL) 4 % (0-6); BASOPHILS % (MANUAL) 0 % (0-2); EOSINOPHILS % (MANUAL) 3 % (0-7); LYMPHOCYTES % (MANUAL) 15 % (20-46); MONOCYTES % (MANUAL) 5 % (0-11)
[2019-06-11] MEDS: ACETYLCYSTEINE 20% 4 ML VIAL (RT) INH SCH ×3 (07:28→20:30)
[2019-06-11] MEDS: amLODIPine BESYLATE 5 MG TABLET GT SCH (09:31)
[2019-06-11] MEDS: PANTOPRAZOLE SODIUM 40 MG/VIAL (PROTONIX) IVP SCH (09:31)
[2019-06-11] MEDS: CHOLESTYRAMINE/SUCROSE 4 GM/PACKET GT SCH (09:31)
[2019-06-11] MEDS: ENOXAPARIN SODIUM 40 MG/0.4 ML SYRINGE SUBCUT SCH (09:32)
[2019-06-11] MEDS: METOPROLOL TARTRATE 50 MG TABLET GT SCH ×2 (09:32→20:07)
[2019-06-11] MEDS: FOLIC ACID 1 MG TABLET GT SCH (09:32)
[2019-06-11] MEDS: DIPHENHYDRAMINE HCL 12.5 MG/5 ML UDC GT SCH (09:32)
[2019-06-11] MEDS: GEMFIBROZIL 600 MG TABLET (LOPID) GT SCH ×2 (09:32→20:07)
[2019-06-11] MEDS: NYSTATIN 15 GM TOPICAL POWDER TP SCH (09:33)
[2019-06-11] MEDS: CHOLECALCIFEROL (VITAMIN D3) 2,000 UNIT TABLET GT SCH (09:33)
[2019-06-11] MEDS: BACLOFEN 10 MG TABLET GT SCH ×3 (09:33→20:08)
[2019-06-11] MEDS: DIPHENOXYLATE HCL/ATROP SULF 2.5 MG TAB PO SCH ×3 (09:33→20:08)
[2019-06-11] MEDS: POTASSIUM CHLORIDE 20 MEQ/PKT PACKET PO SCH ×2 (09:33→20:07)
[2019-06-11] MEDS: FLUDROCORTISONE ACETATE 0.1 MG TABLET( FLORINEF) GT SCH (09:33)
[2019-06-11] MEDS: VALPROIC ACID ORAL SYRUP 250 MG/5 ML UDC GT SCH ×3 (09:36→20:07)
[2019-06-11] MEDS: CITRIC ACID/SODIUM CITRATE 30 ML UDC GT SCH ×3 (09:36→20:07)
[2019-06-11] MEDS: PARoxetine HCL 20 MG TABLET GT SCH ×2 (09:46→20:07)
--- NOTE | 2019-06-11 11:01 | NUR ---
Family Pts step grandfather at bedside, Pts mother was called and I was able to provide an update.
[2019-06-11] MEDS: NACL 0.9% 1,000 ML IV SCH (11:23)
[2019-06-11] MEDS: MORPHINE 2 MG/ML INJ. SYRINGE IVP PRN (12:36)
--- NOTE | 2019-06-11 12:40 | NUR ---
Central Line Dressing Pt provided central line dressing changed. Pt tolerated well.
[2019-06-11] MEDS: LORazepam 2 MG/ML VIAL IVP PRN (13:38)
--- NOTE | 2019-06-11 14:00 | NUR ---
CHG Pt provided CHG, shampoo of hair, and all new linen. Pt tolerated well.
--- NOTE | 2019-06-11 16:49 | NUR ---
Home Care Pts home care assist Kayla is sitting at bedside with pt.
[2019-06-11] MEDS: FLUCONAZOLE 200 mg/ NS 100 ML IV SCH (17:08)
--- NOTE | 2019-06-11 19:15 | NUR ---
Closing Notes Pt endorsed to night RN using SBAR.
--- NOTE | 2019-06-11 19:20 | NUR ---
PM ASSESSMENT Pt in bed with eyes open resting comfortably, no signs of acute distress or discomfort noted. Pt intubated with vent settings: AC 12, TV 280, FiO2 35% and PEEP of 8. Pt tolerating settings well with O2 sats @ 97% and even and unlabored breathing. Pt has R IJ infusing IVF at this time. Gtube noted infusing tubefeeding. Lema cath noted draining urine to gravity. Flexiseal noted draining loose stool. Bed is locked and in lowest position, call light within reach, will cont to monitor pt.
[2019-06-11] MEDS: HYDROCORTISONE 1%, 28.35 GM TOPICAL CREAM TP SCH (20:06)
[2019-06-11] MEDS: EMOLLIENT COMBINATION NO.73 78 GM CREAM..G. TP SCH (20:06)
[2019-06-11] MEDS: LATANOPROST 2.5 ML DROPS (XALATAN) OP SCH (20:06)
--- NOTE | 2019-06-11 22:00 | NUR ---
Pt in bed with eyes closed resting comfortably. No signs of acute distress or discomfort noted. Bed is locked and in lowest position, call light within reach, will cont to monitor.
[2019-06-12] VITALS (30 sets, daily range): BP systolic 129–173
[2019-06-12] MEDS: IPRATROPIUM BROM 0.5 MG/2.5 ML VIAL.NEB (ATROVENT) INH SCH ×4 (01:59→20:37)
[2019-06-12] MEDS: LevALBUTEROL HCL 1.25 MG/0.5 ML *CONC.* VIAL.NEB (XOPENEX CONC.) INH SCH ×4 (01:59→20:37)
--- NOTE | 2019-06-12 02:50 | NUR ---
Pt in bed with eyes closed resting comfortably, no signs of acute distress or discomfort noted. Even and unlabored breathing noted on current vent settings. Bed is locked and in lowest position, call light within reach, will cont to monitor.
[2019-06-12] MEDS: HYDROCORTISONE SOD SUCC 100 MG/2 ML VIAL IVP SCH ×2 (05:06→17:26)
[2019-06-12] MEDS: LEVOTHYROXINE SODIUM 0.025 MG TABLET GT SCH (05:06)
[2019-06-12] MEDS: PIPERACILLIN/TAZO 4.5GM/DEX-IS 100 ML IV SCH (05:06)
[2019-06-12] MEDS: DILTIAZEM HCL 90 MG TABLET GT SCH ×4 (05:07→23:34)
[2019-06-12 06:00] LABS: BASOPHILS % (AUTO) 0.1 % (0.0-2.0); EOSINOPHILS # (AUTO) 0.2 K/uL (0.0-0.4); EOSINOPHILS % (AUTO) 0.6 % (0.0-4.0); HEMATOCRIT 27.2 % (36-54); HEMOGLOBIN 8.7 g/dL (14.0-18.0); LYMPHOCYTES # (AUTO) 4.5 K/uL (1.0-5.5); LYMPHOCYTES % (AUTO) 14.3 % (20.5-51.5); MEAN CORPUSCULAR HEMOGLOBIN 30 pg (27-31); MEAN CORPUSCULAR HGB CONC 32 % (32-36); MEAN CORPUSCULAR VOLUME 92 fL (79.0-98.0); MONOCYTES # (AUTO) 2.6 K/uL (0.0-1.0); MONOCYTES % (AUTO) 8.3 % (1.7-9.3); NEUTROPHILS # (AUTO) 24.2 K/uL (1.8-7.7); NEUTROPHILS % (AUTO) 76.7 % (40.0-70.0); PLATELET COUNT (AUTO) 440 K/uL (130-430); RED BLOOD CELL COUNT(AUTO) 2.94 MIL/uL (4.2-6.2); RED CELL DISTRIBUTION WIDTH 22.1 % (9.0-15.0)
[2019-06-12] MEDS: INSULIN NPH 100 UNITS/ML 10 ML VIAL SUBCUT SCH ×2 (06:04→17:00)
[2019-06-12 06:08] LABS: CALCIUM 8.9 mg/dL (8.4-11.0); CREATININE 1.76 mg/dL (0.55-1.30)
--- NOTE | 2019-06-12 06:29 | NUR ---
Dr. Peterson paged at this time for critical lab results. Awaiting call back. Will cont to monitor pt.
--- NOTE | 2019-06-12 06:42 | NUR ---
Dr. Peterson called back at this time. Made MD aware of pt's potassium of 6. Orders received, will carry out orders.
[2019-06-12] MEDS ORDERED: SODIUM POLYSTYRENE SULFONATE 15 GM/60 ML UDBTL GT ONE ×2 (06:45→09:15)
--- NOTE | 2019-06-12 07:20 | NUR ---
Opening Note Received plan of care via sbar from endorsing nurse Tony KIM. Completed patient round.
--- NOTE | 2019-06-12 07:23 | NUR ---
ENDORSEMENT Report given to oncoming dayshift RN using SBAR format and pt care was endorsed. No signs of acute distress or discomfort noted.
[2019-06-12 07:47] LABS: WHITE BLOOD COUNT (AUTO) 31.5 K/uL (4.8-10.8)
--- NOTE | 2019-06-12 07:50 | NUR ---
Paged Dr. Montana and Dr. Perkins to report critical value of WBC.
[2019-06-12] MEDS: ACETYLCYSTEINE 20% 4 ML VIAL (RT) INH SCH ×3 (08:02→20:38)
[2019-06-12] MEDS: BACLOFEN 10 MG TABLET GT SCH ×3 (09:38→20:45)
[2019-06-12] MEDS: METOPROLOL TARTRATE 50 MG TABLET GT SCH ×2 (09:39→20:47)
[2019-06-12] MEDS: PARoxetine HCL 20 MG TABLET GT SCH ×2 (09:39→20:47)
[2019-06-12] MEDS: DIPHENOXYLATE HCL/ATROP SULF 2.5 MG TAB PO SCH ×3 (09:39→20:50)
[2019-06-12] MEDS: GEMFIBROZIL 600 MG TABLET (LOPID) GT SCH ×2 (09:40→20:46)
[2019-06-12] MEDS: PANTOPRAZOLE SODIUM 40 MG/VIAL (PROTONIX) IVP SCH (09:40)
[2019-06-12] MEDS: amLODIPine BESYLATE 5 MG TABLET GT SCH (09:40)
[2019-06-12] MEDS: CHOLESTYRAMINE/SUCROSE 4 GM/PACKET GT SCH (09:40)
[2019-06-12] MEDS: FLUDROCORTISONE ACETATE 0.1 MG TABLET( FLORINEF) GT SCH (09:40)
[2019-06-12] MEDS: DIPHENHYDRAMINE HCL 12.5 MG/5 ML UDC GT SCH (09:40)
[2019-06-12] MEDS: FOLIC ACID 1 MG TABLET GT SCH (09:40)
[2019-06-12] MEDS: CITRIC ACID/SODIUM CITRATE 30 ML UDC GT SCH ×3 (09:41→20:45)
[2019-06-12] MEDS: VALPROIC ACID ORAL SYRUP 250 MG/5 ML UDC GT SCH ×3 (09:41→20:46)
[2019-06-12] MEDS: ENOXAPARIN SODIUM 40 MG/0.4 ML SYRINGE SUBCUT SCH (09:42)
[2019-06-12] MEDS: NYSTATIN 15 GM TOPICAL POWDER TP SCH (09:43)
[2019-06-12] MEDS: CEFEPIME 1 GM in D5W 50 ML IV SCH (09:58)
[2019-06-12] MEDS: CHOLECALCIFEROL (VITAMIN D3) 2,000 UNIT TABLET GT SCH (09:58)
[2019-06-12] MEDS: LORazepam 2 MG/ML VIAL IVP PRN ×2 (10:34→21:10)
[2019-06-12] MEDS: MORPHINE 2 MG/ML INJ. SYRINGE IVP PRN (10:35)
[2019-06-12] MEDS: metroNIDAZOLE 500 mg/NS 100 ML IV SCH ×2 (13:15→22:17)
--- NOTE | 2019-06-12 15:02 | NUR ---
Nutrition F/U RD reviewed pt's current EMR including diet Hx, physician notes, nursing notes, pertinent labs/meds/procedures, care trends and care activity. MD notes pt remains intubated, less diarrhea, and now off pressors. Diarrhea likely related to underlying medical issues per MD note, possible trach placement next week. MD also notes +2 generalized edema. Current Nutrition Support: Vital AF 1.2 at 45ml/hr, Banatrol BID, Free Water Flush: 150 ml Q6h via GT x 23 days Provides: 1296 kcal/day, 81 gm protein/day, and 1476 ml free water/day Meets: 88% of lower end of estimated caloric needs and 101% of upper end of estimated protein needs Subjective information: Loose stools improving per EMR documentation, Bannitrol TID provided and Lomotil 1 tab TID (last administered today). Pt seen resting in bed, intubated with no signs of distress. No TF enfusing at bedside. Per RN JUDY Traylor to change to new Vital AF bottle after tending to other pt. Problem/Etiology/Signs/Symptoms Altered GI function r/t medication AEB flagyl and reports of diarrhea per nursing staff *ongoing* Expected Outcomes/Goals Monitor EN support and intake w/ goal of pt meeting at least 75% of estimated nutritional needs, labs trending WNL, normal GI function, skin integrity/wt maintenance. Dietitian Recommendations * Recommend continuing Vital AF 1.2 at 45 ml/hr, Banatrol BID, Free Water Flush: 150 ml Q6h via GT Follow Up High Risk: F/U in 2-3 days
--- NOTE | 2019-06-12 15:07 | NUR ---
Dietitian Recommendations * Recommend continuing Vital AF 1.2 at 45 ml/hr, Banatrol BID, Free Water Flush: 150 ml Q6h via GT Please see Nutrition Assessment for further details. NIK SALCIDO Addendum: 06/12/19 at [address] Please see Nutrition Follow Up for further details.
[2019-06-12] MEDS: NACL 0.9% 1,000 ML IV SCH (15:35)
[2019-06-12] MEDS: DEXTROSE 50% JECT 50 ML DISP.SYRIN IVP PRN (17:25)
[2019-06-12] MEDS: FLUCONAZOLE 200 mg/ NS 100 ML IV SCH (17:27)
--- NOTE | 2019-06-12 19:44 | NUR ---
Closing Note Provided plan of care via sbar to receiving nurse. Completed patient round.
--- NOTE | 2019-06-12 19:50 | NUR ---
Initial PM shift note Received patient after report from day shift nurse. Patient awake. Mechanical ventilation in place via ETT 7.5 with settings AC 12, TV 280, FIO2 35% peep 8 and tolerating. Right IJ central line in place with IVF infusing. Lema catheter draining urine by gravity. GT in place with feeding infusing as per md orders Vital EF at 45 cc/h. Patient was repositioned for comfort and bed bath provided as flexiseal has leaked. linen and gown changed. bed set to lowest settings. call light within reach. will continue to monitor as per unit protocol.
--- NOTE | 2019-06-12 20:00 | NUR ---
Due to recent episodes of hypoglycemia, random glucose test was performed BS 91. will continue to monitor.
[2019-06-12] MEDS: LATANOPROST 2.5 ML DROPS (XALATAN) OP SCH (20:49)
[2019-06-12] MEDS: EMOLLIENT COMBINATION NO.73 78 GM CREAM..G. TP SCH (20:50)
[2019-06-12] MEDS: HYDROCORTISONE 1%, 28.35 GM TOPICAL CREAM TP SCH (20:51)
--- NOTE | 2019-06-12 21:11 | NUR ---
Ativan 1 mg IVP given for restlessness. will continue to monitor.
[2019-06-12] MEDS ORDERED: FLU VACC QS2019-20 36MOS UP/PF 60 MCG/0.5 ML SYRINGE I.M. PRN (23:00)
[2019-06-13] VITALS (34 sets, daily range): BP systolic 106–187
--- NOTE | 2019-06-13 01:30 | NUR ---
after midnight finger stick BS 80, random glucose test was performed at this time. BS 99. will continue to monitor for s/s of hypoglycemia.
[2019-06-13] MEDS: LevALBUTEROL HCL 1.25 MG/0.5 ML *CONC.* VIAL.NEB (XOPENEX CONC.) INH SCH ×4 (01:33→20:36)
[2019-06-13] MEDS: IPRATROPIUM BROM 0.5 MG/2.5 ML VIAL.NEB (ATROVENT) INH SCH ×4 (01:33→20:37)
[2019-06-13] MEDS: cloNIDine HCL 0.1 MG TABLET GT PRN (03:42)
--- NOTE | 2019-06-13 03:42 | NUR ---
blood pressure continues to be elevated 167/99 at this time. As per MD PRN orders Catapress 0.1 mg given. will continue to monitor patient for medication effectiveness.
[2019-06-13] MEDS: LEVOTHYROXINE SODIUM 0.025 MG TABLET GT SCH (05:53)
[2019-06-13] MEDS: metroNIDAZOLE 500 mg/NS 100 ML IV SCH ×3 (05:53→21:09)
[2019-06-13] MEDS: DILTIAZEM HCL 90 MG TABLET GT SCH ×3 (05:53→17:27)
[2019-06-13] MEDS: HYDROCORTISONE SOD SUCC 100 MG/2 ML VIAL IVP SCH ×2 (05:54→17:28)
[2019-06-13] MEDS: LORazepam 2 MG/ML VIAL IVP PRN ×2 (05:55→21:09)
[2019-06-13 06:17] LABS: CALCIUM 8.4 mg/dL (8.4-11.0); CREATININE 1.54 mg/dL (0.55-1.30); POTASSIUM 3.5 mmol/L (3.5-5.1)
--- NOTE | 2019-06-13 06:20 | NUR ---
Patient continues to rest with eyes closed after administration of Ativan 1 mg IVP due to restlessness and elevated BP. BP at this time 140/78 which is down from 167/102. will continue to monitor as per unit protocol.
[2019-06-13 06:28] LABS: BASOPHILS # (AUTO) 0.1 K/uL (0.0-0.2); BASOPHILS % (AUTO) 0.2 % (0.0-2.0); EOSINOPHILS # (AUTO) 0.4 K/uL (0.0-0.4); EOSINOPHILS % (AUTO) 1.5 % (0.0-4.0); HEMATOCRIT 22.7 % (36-54); HEMOGLOBIN 7.3 g/dL (14.0-18.0); LYMPHOCYTES # (AUTO) 3.6 K/uL (1.0-5.5); LYMPHOCYTES % (AUTO) 14.8 % (20.5-51.5); MEAN CORPUSCULAR HEMOGLOBIN 30 pg (27-31); MEAN CORPUSCULAR HGB CONC 32 % (32-36); MEAN CORPUSCULAR VOLUME 93 fL (79.0-98.0); MONOCYTES # (AUTO) 2.1 K/uL (0.0-1.0); MONOCYTES % (AUTO) 8.7 % (1.7-9.3); NEUTROPHILS # (AUTO) 17.9 K/uL (1.8-7.7); NEUTROPHILS % (AUTO) 74.8 % (40.0-70.0); PLATELET COUNT (AUTO) 348 K/uL (130-430); RED BLOOD CELL COUNT(AUTO) 2.45 MIL/uL (4.2-6.2); RED CELL DISTRIBUTION WIDTH 22.5 % (9.0-15.0)
--- NOTE | 2019-06-13 07:30 | NUR ---
Opening Note Received plan of care via sbar from endorsing nurse Renard KIM. Completed patient round. All safety measures met.
[2019-06-13] MEDS: ACETYLCYSTEINE 20% 4 ML VIAL (RT) INH SCH ×3 (07:53→21:00)
[2019-06-13] MEDS: ENOXAPARIN SODIUM 40 MG/0.4 ML SYRINGE SUBCUT SCH (09:37)
[2019-06-13] MEDS: CHOLESTYRAMINE/SUCROSE 4 GM/PACKET GT SCH (09:37)
[2019-06-13] MEDS: PANTOPRAZOLE SODIUM 40 MG/VIAL (PROTONIX) IVP SCH (09:38)
[2019-06-13] MEDS: PARoxetine HCL 20 MG TABLET GT SCH ×2 (09:38→20:42)
[2019-06-13] MEDS: CHOLECALCIFEROL (VITAMIN D3) 2,000 UNIT TABLET GT SCH (09:38)
[2019-06-13] MEDS: DIPHENOXYLATE HCL/ATROP SULF 2.5 MG TAB PO SCH ×3 (09:38→20:44)
[2019-06-13] MEDS: GEMFIBROZIL 600 MG TABLET (LOPID) GT SCH ×2 (09:38→20:37)
[2019-06-13] MEDS: FOLIC ACID 1 MG TABLET GT SCH (09:38)
[2019-06-13] MEDS: DIPHENHYDRAMINE HCL 12.5 MG/5 ML UDC GT SCH (09:38)
[2019-06-13] MEDS: amLODIPine BESYLATE 5 MG TABLET GT SCH (09:39)
[2019-06-13] MEDS: FLUDROCORTISONE ACETATE 0.1 MG TABLET( FLORINEF) GT SCH (09:39)
[2019-06-13] MEDS: BACLOFEN 10 MG TABLET GT SCH ×3 (09:39→20:36)
[2019-06-13] MEDS: VALPROIC ACID ORAL SYRUP 250 MG/5 ML UDC GT SCH ×3 (09:40→20:37)
[2019-06-13] MEDS: CITRIC ACID/SODIUM CITRATE 30 ML UDC GT SCH ×3 (09:41→20:36)
[2019-06-13] MEDS: NYSTATIN 15 GM TOPICAL POWDER TP SCH (09:41)
[2019-06-13] MEDS: CEFEPIME 1 GM in D5W 50 ML IV SCH (09:43)
[2019-06-13] MEDS ORDERED: METOPROLOL TARTRATE 25 MG TABLET GT ONE (10:00)
[2019-06-13] MEDS ORDERED: METOPROLOL TARTRATE 25 MG TABLET ONE (10:04)
[2019-06-13] MEDS: INSULIN NPH 100 UNITS/ML 10 ML VIAL SUBCUT SCH ×2 (10:06→17:26)
[2019-06-13] MEDS: INSULIN LISPRO SLIDING SCALE 100 UNITS/ML VIAL (humaLOG) SUBCUT PRN (12:05)
[2019-06-13] MEDS: hydrALAZINE HCL 20 MG/ML VIAL IVP PRN (15:28)
[2019-06-13] MEDS: NACL 0.9% 1,000 ML IV SCH (17:24)
[2019-06-13] MEDS: FLUCONAZOLE 200 mg/ NS 100 ML IV SCH (17:25)
[2019-06-13] MEDS ORDERED: FUROSEMIDE 20 MG/2 ML VIAL IVP ONE (17:30)
--- NOTE | 2019-06-13 19:31 | NUR ---
Closing Note Provided plan of care via sbar to receiving nurse Renard KIM. Completed patient round.
--- NOTE | 2019-06-13 20:00 | NUR ---
PM initial note Received patient after report from day shift. In vent support with settings with no change and tolerating well. f/c in place and draining to gravity. Flexiseal in place and draining liquid stool. cental line in place no signs of infiltration noted. will continue to monitor .
[2019-06-13] MEDS: METOPROLOL TARTRATE 25 MG TABLET GT SCH (20:41)
[2019-06-13] MEDS: EMOLLIENT COMBINATION NO.73 78 GM CREAM..G. TP SCH (20:44)
[2019-06-13] MEDS: LATANOPROST 2.5 ML DROPS (XALATAN) OP SCH (20:44)
[2019-06-13] MEDS: HYDROCORTISONE 1%, 28.35 GM TOPICAL CREAM TP SCH (20:45)
[2019-06-14] VITALS (30 sets, daily range): BP systolic 111–204
[2019-06-14] MEDS: DILTIAZEM HCL 90 MG TABLET GT SCH ×5 (00:51→23:34)
[2019-06-14] MEDS: DEXTROSE 50% JECT 50 ML DISP.SYRIN IVP PRN (00:59)
--- NOTE | 2019-06-14 03:20 | NUR ---
late entry patient has been restless and uncomfortable showing grimacing indicating pain. Blood pressure significantly elevated and requiring pain and agitation management. Ativan 1 mg IVP and Morphine 1 mg IVP were given at this time. will continue to monitor. System failed to record administration of these medications and a late entry of medications in JUL was recorded at 0845 and 0848.
[2019-06-14] MEDS: IPRATROPIUM BROM 0.5 MG/2.5 ML VIAL.NEB (ATROVENT) INH SCH ×4 (03:36→19:49)
[2019-06-14] MEDS: LevALBUTEROL HCL 1.25 MG/0.5 ML *CONC.* VIAL.NEB (XOPENEX CONC.) INH SCH ×4 (03:36→19:49)
[2019-06-14] MEDS: hydrALAZINE HCL 20 MG/ML VIAL IVP PRN (04:18)
[2019-06-14 05:59] LABS: BASOPHILS # (AUTO) 0.1 K/uL (0.0-0.2); BASOPHILS % (AUTO) 0.4 % (0.0-2.0); EOSINOPHILS # (AUTO) 0.4 K/uL (0.0-0.4); EOSINOPHILS % (AUTO) 1.8 % (0.0-4.0); HEMATOCRIT 29.1 % (36-54); HEMOGLOBIN 9.4 g/dL (14.0-18.0); LYMPHOCYTES # (AUTO) 3.7 K/uL (1.0-5.5); LYMPHOCYTES % (AUTO) 15.7 % (20.5-51.5); MEAN CORPUSCULAR HEMOGLOBIN 29 pg (27-31); MEAN CORPUSCULAR HGB CONC 32 % (32-36); MEAN CORPUSCULAR VOLUME 91 fL (79.0-98.0); MONOCYTES # (AUTO) 2.3 K/uL (0.0-1.0); MONOCYTES % (AUTO) 9.6 % (1.7-9.3); NEUTROPHILS # (AUTO) 17.1 K/uL (1.8-7.7); NEUTROPHILS % (AUTO) 72.5 % (40.0-70.0); PLATELET COUNT (AUTO) 357 K/uL (130-430); RED BLOOD CELL COUNT(AUTO) 3.22 MIL/uL (4.2-6.2); RED CELL DISTRIBUTION WIDTH 18.9 % (9.0-15.0); WHITE BLOOD COUNT (AUTO) 23.6 K/uL (4.8-10.8)
[2019-06-14 06:31] LABS: ALANINE AMINOTRANSFERASE 22 U/L (12-78); ASPARTATE AMINOTRANSFERASE 26 U/L (10-37); CALCIUM 8.8 mg/dL (8.4-11.0); CHLORIDE 113 mmol/L (98-107); CREATININE 1.38 mg/dL (0.55-1.30); GLUCOSE 82 mg/dL (70-99); SODIUM SERUM 142 mmol/L (136-145); TOTAL BILIRUBIN 0.2 mg/dL (0.0-1.0); UREA NITROGEN, BLOOD 59 mg/dL (8-21)
[2019-06-14 06:38] LABS: GFR AFRICAN AMERICAN 80 mL/min (>90); POTASSIUM 2.7 mmol/L (3.5-5.1)
[2019-06-14 06:39] LABS: ANION GAP < 3 (5-15)
[2019-06-14] MEDS: LEVOTHYROXINE SODIUM 0.025 MG TABLET GT SCH (06:45)
[2019-06-14] MEDS: metroNIDAZOLE 500 mg/NS 100 ML IV SCH ×3 (06:46→22:02)
[2019-06-14] MEDS: HYDROCORTISONE SOD SUCC 100 MG/2 ML VIAL IVP SCH ×2 (06:46→17:18)
--- NOTE | 2019-06-14 07:13 | NUR ---
RECEIVED NURSING REPORT FROM FAMILY CASEWORKER KEI Lyon
--- NOTE | 2019-06-14 07:30 | NUR ---
POTASSIUM LEVEL 2.7, REPORT TO ORDERED GIVE K-RIDER 40 MEQ IVPB X ONCE
[2019-06-14] MEDS ORDERED: KCL 40 mEq in 100 mL (PREMIX) 100 ML IV ONE (08:30)
[2019-06-14] MEDS: MORPHINE 2 MG/ML INJ. SYRINGE IVP PRN ×3 (08:45→14:59)
[2019-06-14] MEDS: LORazepam 2 MG/ML VIAL IVP PRN ×3 (08:48→14:59)
--- NOTE | 2019-06-14 08:50 | NUR ---
Late entry regarding medication entered at later time after noticing system did not save medication administration. Morphine 1 mg and ativan 1 mg were drawn from pixes and medication was administered for restlessness and pain. Ativan was administered at 0320 and documented at 0848 due system error Morphine was given at 0325 and documented late at 0845 due to system error.
[2019-06-14] MEDS: CEFEPIME 1 GM in D5W 50 ML IV SCH (09:12)
[2019-06-14] MEDS: CHOLESTYRAMINE/SUCROSE 4 GM/PACKET GT SCH (09:20)
[2019-06-14] MEDS: DIPHENHYDRAMINE HCL 12.5 MG/5 ML UDC GT SCH (09:20)
[2019-06-14] MEDS: CITRIC ACID/SODIUM CITRATE 30 ML UDC GT SCH ×3 (09:21→22:01)
[2019-06-14] MEDS: VALPROIC ACID ORAL SYRUP 250 MG/5 ML UDC GT SCH ×3 (09:22→22:01)
[2019-06-14] MEDS: PANTOPRAZOLE SODIUM 40 MG/VIAL (PROTONIX) IVP SCH (09:22)
[2019-06-14] MEDS: GEMFIBROZIL 600 MG TABLET (LOPID) GT SCH ×2 (09:22→22:01)
[2019-06-14] MEDS: FLUDROCORTISONE ACETATE 0.1 MG TABLET( FLORINEF) GT SCH (09:23)
[2019-06-14] MEDS: DIPHENOXYLATE HCL/ATROP SULF 2.5 MG TAB PO SCH ×3 (09:23→22:01)
[2019-06-14] MEDS: BACLOFEN 10 MG TABLET GT SCH ×3 (09:23→22:01)
[2019-06-14] MEDS: CHOLECALCIFEROL (VITAMIN D3) 2,000 UNIT TABLET GT SCH (09:23)
[2019-06-14] MEDS: PARoxetine HCL 20 MG TABLET GT SCH ×2 (09:23→22:01)
[2019-06-14] MEDS: FOLIC ACID 1 MG TABLET GT SCH (09:23)
[2019-06-14] MEDS: amLODIPine BESYLATE 5 MG TABLET GT SCH (09:24)
[2019-06-14] MEDS: NYSTATIN 15 GM TOPICAL POWDER TP SCH (09:25)
[2019-06-14] MEDS: METOPROLOL TARTRATE 25 MG TABLET GT SCH ×2 (09:25→22:32)
[2019-06-14] MEDS: ENOXAPARIN SODIUM 40 MG/0.4 ML SYRINGE SUBCUT SCH (09:26)
[2019-06-14] MEDS: ACETYLCYSTEINE 20% 4 ML VIAL (RT) INH SCH ×3 (09:42→19:52)
[2019-06-14] MEDS ORDERED: FUROSEMIDE 20 MG/2 ML VIAL IVP ONE (09:45)
[2019-06-14] MEDS: NACL 0.9% 1,000 ML IV SCH (11:00)
--- NOTE | 2019-06-14 11:10 | NUR ---
SEE PATIENT, ORDERED FOLLOW UP STAT CHEST X-RAY, AND FIVE KCL 40 MEQ VIA G-T X ONCE, FOLLOW UP CBC, CMP, ABG , CHEST X0RAY IN TOMORROW A.M
[2019-06-14] MEDS ORDERED: SPIRONOLACTONE 25 MG TABLET (ALDACTONE) GT ONE (11:15)
--- NOTE | 2019-06-14 11:18 | NUR ---
RT NOTES- ETT 7.[address] STINSON ADVANCED ETT TO 23CM LIP LINE AT THIS TIME. JUDY BARILLAS MADE AWARE.
[2019-06-14] MEDS: cloNIDine HCL 0.1 MG TABLET GT PRN (11:22)
[2019-06-14] MEDS: INSULIN LISPRO SLIDING SCALE 100 UNITS/ML VIAL (humaLOG) SUBCUT PRN ×2 (11:27→17:24)
[2019-06-14] MEDS ORDERED: POTASSIUM CHLORIDE 20 MEQ/PKT PACKET PO ONE (12:15)
--- NOTE | 2019-06-14 13:20 | NUR ---
AT 1310 SEE PATIENT, ORDERED GIVE SOLU-CORTEF 100 MG IVP X ONCE , BEFORE TOMORROW TRACHEOSTOMY SCHEDULE (06/15/19 11 A.M)
[2019-06-14] MEDS: FLUCONAZOLE 200 mg/ NS 100 ML IV SCH (17:16)
[2019-06-14] MEDS: INSULIN NPH 100 UNITS/ML 10 ML VIAL SUBCUT SCH (17:28)
--- NOTE | 2019-06-14 18:30 | NUR ---
AT 1805 P.M PAGED REGARDING OF AFTER MIDNIGHT NPO ORDER AND IV FLUID ORDER, WAITING FOR DOCTOR CALL BACK
--- NOTE | 2019-06-14 19:20 | NUR ---
OPENING NOTE SBAR REPORT RECEIVED FROM NARGIS KIM. CARE ASSUMED. PT LAYING IN BED. PT ANO X1. PT OBTUNDED. PT INTUBATED. ETT TUBE 7.5 LIP LINE 23. VENT SETTINGS AC 12, TV 280, FiO2 35%, PEEP 8. PT TOLERATING VENT SETTINGS WELL. PT SINUS RHYTHM ON MONITOR. PT HAS RIGHT IJ IN PLACE RUNNING NS @ 30 ML/HR. PT HAS 2+ PITTING EDEMA TO BILATERAL UPPER AND LOWER EXTREMITIES. NON-PITTING EDEMA TO SCROTUM. PT ABDOMEN RIGID AND DISTENDED. G TUBE IN PLACE RUNNING VITAL AF @ 45 ML/HR WITH Q 6HR 150 ML WATER FLUSHES. MENDOZA CATHETER IN PLACE DRAINING TO GRAVITY. URINE YELLOW AND CLEAR. PT HAS FLEXI SEAL IN PLACE. LIQUID DARK GREEN CONTENTS IN FLEXI-SEAL TUBING AND BAG. PT CONTRACTED IN BILATERAL UPPER AND LOWER EXTREMITIES. SKIN INTACT. PT WILL BE NPO AFTER MIDNIGHT FOR TRACHEOSTOMY PLACEMENT IN AM. BED LOCKED IN LOWEST POSITION. SAFETY PRECAUTIONS IN PLACE. CALL LIGHT WITHIN REACH. WILL CONTINUE TO MONITOR.
--- NOTE | 2019-06-14 19:37 | NUR ---
CALLED BACK, ORDERED FOLLOW UP PT/INR, PTT IN A.M, AFTER MIDNIGHT N.P.O, GIVE IVF D5W0.45% N.S AT 45 ML/HR (NPO ONLY ) HOLD LOVENOX TOMORROW A.M DOSE, ALSO WAS GIVE COMPLETE NURSING REPORT TO PATTERN HANGER JEN Lyon
[2019-06-14] MEDS: EMOLLIENT COMBINATION NO.73 78 GM CREAM..G. TP SCH (22:00)
[2019-06-14] MEDS: LATANOPROST 2.5 ML DROPS (XALATAN) OP SCH (22:00)
[2019-06-14] MEDS: HYDROCORTISONE 1%, 28.35 GM TOPICAL CREAM TP SCH (22:01)
[2019-06-14] MEDS ORDERED: METOPROLOL TARTRATE 50 MG TABLET ONE (22:44)
[2019-06-15] VITALS (26 sets, daily range): BP systolic 109–175
[2019-06-15] MEDS ORDERED: D5/0.45 NS 1,000 ML IV SCH
[2019-06-15] MEDS: LevALBUTEROL HCL 1.25 MG/0.5 ML *CONC.* VIAL.NEB (XOPENEX CONC.) INH SCH ×2 (01:12→19:42)
[2019-06-15] MEDS: IPRATROPIUM BROM 0.5 MG/2.5 ML VIAL.NEB (ATROVENT) INH SCH ×2 (01:12→19:41)
[2019-06-15] MEDS: DILTIAZEM HCL 90 MG TABLET GT SCH ×3 (06:00→17:27)
[2019-06-15] MEDS: LEVOTHYROXINE SODIUM 0.025 MG TABLET GT SCH (06:00)
[2019-06-15 06:09] LABS: HEMOGLOBIN 9.2 g/dL (14.0-18.0); MEAN CORPUSCULAR HEMOGLOBIN 29 pg (27-31); MEAN CORPUSCULAR HGB CONC 32 % (32-36); MEAN CORPUSCULAR VOLUME 92 fL (79.0-98.0); PLATELET COUNT (AUTO) 336 K/uL (130-430); RED BLOOD CELL COUNT(AUTO) 3.17 MIL/uL (4.2-6.2); RED CELL DISTRIBUTION WIDTH 19.9 % (9.0-15.0); WHITE BLOOD COUNT (AUTO) 22.6 K/uL (4.8-10.8)
[2019-06-15 06:22] LABS: INR 1.1 (0.80-1.20); PROTHROMBIN TIME 11.2 SECS (9.5-12.5)
[2019-06-15] MEDS: DEXTROSE 50% JECT 50 ML DISP.SYRIN IVP PRN ×2 (06:31→10:33)
[2019-06-15] MEDS: HYDROCORTISONE SOD SUCC 100 MG/2 ML VIAL IVP SCH ×2 (06:35→17:28)
[2019-06-15] MEDS: metroNIDAZOLE 500 mg/NS 100 ML IV SCH ×3 (06:36→22:35)
[2019-06-15] MEDS: INSULIN NPH 100 UNITS/ML 10 ML VIAL SUBCUT SCH ×2 (06:38→16:13)
--- NOTE | 2019-06-15 07:13 | NUR ---
RECEIVED NURSING REPORT FROM CIVIL ENGINEER HELPER JEN Lyon
--- NOTE | 2019-06-15 07:32 | NUR ---
CLOSING NOTE PT LAYING IN BED. NO SIGNS OR SYMPTOMS OF DISTRESS NOTED. SBAR REPORT GIVEN TO NARGIS KIM. CARE ENDORSED.
--- NOTE | 2019-06-15 07:37 | NUR ---
PATIENT IS STILL NPO FOR TRACHEOSTOMY SCHEDULE 1100 A.M, THE IN PATIENT SURGICAL CHECKLIST DONE IN THE CHART
[2019-06-15 07:50] LABS: ALBUMIN 1.9 g/dL (3.4-4.8); CALCIUM 9.4 mg/dL (8.4-11.0); CREATININE 1.52 mg/dL (0.55-1.30); POTASSIUM 3.9 mmol/L (3.5-5.1); TOTAL BILIRUBIN 0.2 mg/dL (0.0-1.0)
[2019-06-15 08:25] LABS: ATYPICAL LYMPHOCYTES % 0 % (0-0); BAND % (MANUAL) 3 % (0-6); BASOPHILS % (MANUAL) 0 % (0-2); EOSINOPHILS % (MANUAL) 1 % (0-7); LYMPHOCYTES % (MANUAL) 10 % (20-46); MONOCYTES % (MANUAL) 5 % (0-11)
[2019-06-15] MEDS: DIPHENHYDRAMINE HCL 12.5 MG/5 ML UDC GT SCH (09:00)
[2019-06-15] MEDS: amLODIPine BESYLATE 5 MG TABLET GT SCH (09:00)
[2019-06-15] MEDS: ENOXAPARIN SODIUM 40 MG/0.4 ML SYRINGE SUBCUT SCH (09:00)
[2019-06-15] MEDS: VALPROIC ACID ORAL SYRUP 250 MG/5 ML UDC GT SCH ×3 (09:00→20:20)
[2019-06-15] MEDS: CHOLESTYRAMINE/SUCROSE 4 GM/PACKET GT SCH (09:00)
[2019-06-15] MEDS: PARoxetine HCL 20 MG TABLET GT SCH ×2 (09:00→20:21)
[2019-06-15] MEDS: CHOLECALCIFEROL (VITAMIN D3) 2,000 UNIT TABLET GT SCH (09:00)
[2019-06-15] MEDS: BACLOFEN 10 MG TABLET GT SCH ×3 (09:00→20:20)
[2019-06-15] MEDS: DIPHENOXYLATE HCL/ATROP SULF 2.5 MG TAB PO SCH ×3 (09:00→20:22)
[2019-06-15] MEDS: METOPROLOL TARTRATE 25 MG TABLET GT SCH ×2 (09:00→20:24)
[2019-06-15] MEDS: CITRIC ACID/SODIUM CITRATE 30 ML UDC GT SCH ×3 (09:00→20:20)
[2019-06-15] MEDS ORDERED: FUROSEMIDE 40 MG/4 ML VIAL IVP ONE (09:00)
[2019-06-15] MEDS: FOLIC ACID 1 MG TABLET GT SCH (09:00)
[2019-06-15] MEDS: FLUDROCORTISONE ACETATE 0.1 MG TABLET( FLORINEF) GT SCH (09:00)
[2019-06-15] MEDS: GEMFIBROZIL 600 MG TABLET (LOPID) GT SCH ×2 (09:00→20:21)
[2019-06-15] MEDS: CEFEPIME 1 GM in D5W 50 ML IV SCH (09:13)
[2019-06-15] MEDS: PANTOPRAZOLE SODIUM 40 MG/VIAL (PROTONIX) IVP SCH (09:14)
[2019-06-15] MEDS: LORazepam 2 MG/ML VIAL IVP PRN ×2 (09:14→14:13)
[2019-06-15] MEDS: MORPHINE 2 MG/ML INJ. SYRINGE IVP PRN ×2 (09:14→14:14)
[2019-06-15] MEDS: hydrALAZINE HCL 20 MG/ML VIAL IVP PRN ×2 (09:15→14:13)
[2019-06-15] MEDS: NACL 0.9% 1,000 ML IV SCH (09:34)
[2019-06-15] MEDS: NYSTATIN 15 GM TOPICAL POWDER TP SCH (09:36)
[2019-06-15] MEDS ORDERED: HYDROCORTISONE SOD SUCC 100 MG/2 ML VIAL IVP ONE (10:00)
--- NOTE | 2019-06-15 10:15 | NUR ---
SEE PATIENT, WAS AWARE ABG RESULT, ORDERED FOLLOW UP CHEST X-RAY, ABG, CBC, CMP IN TOMORROW A.M
--- NOTE | 2019-06-15 10:36 | NUR ---
B.Sulema 68, PRN ORDERED GIVE D50W ONE AMP IVP
--- NOTE | 2019-06-15 10:47 | NUR ---
SEE PATIENT ORDERED FOLLOW UP LAB IN A.M
--- NOTE | 2019-06-15 11:14 | NUR ---
AT 1050 A.M SEE PATIENT AND EXPLAINED PROCEDURE WITH FAMILIES AT BEDSIDE
--- NOTE | 2019-06-15 11:45 | NUR ---
GIVE COMPLETE NURSING REPORT TO OMonae REDDY R.N, THEN SENT PATIENT TO [facility] FOR TRACHEOSTOMY, THE PATIENT,S FAMILIES FOLLOWING
--- NOTE | 2019-06-15 11:51 | NUR ---
Nutrition F/U RD reviewed pt's current EMR including diet Hx, physician notes, nursing notes, pertinent labs/meds/procedures, care trends and care activity. Current Nutrition Support: Vital AF 1.2 at 45ml/hr, Banatrol BID, Free Water Flush: 150 ml Q6h via GT x 27 days Provides: 1296 kcal/day, 81 gm protein/day, and 1476 ml free water/day Meets: 88% of lower end of estimated caloric needs and 101% of upper end of estimated protein needs Subjective information: Pt seen in room at time of RD visit earlier today. No EN infusing at time of visit. Per RN, pt is NPO and awaiting tracheostomy. Residual from last night was 5-10cc, +stool output 06/15 200ml. Problem/Etiology/Signs/Symptoms Altered GI function r/t medication AEB flagyl and reports of diarrhea per nursing staff *ongoing* Expected Outcomes/Goals Monitor EN support and intake w/ goal of pt meeting at least 75% of estimated nutritional needs, labs trending WNL, normal GI function, skin integrity/wt maintenance. Dietitian Recommendations * Recommend resuming Vital AF 1.2 at 45 ml/hr, Banatrol BID, Free Water Flush: 150 ml Q6h via GT once procedure is done. Follow Up High Risk: F/U in 2-3 days
--- NOTE | 2019-06-15 12:05 | NUR ---
AT 1140 A.M, SEE PATIENT
[2019-06-15] MEDS ORDERED: LR 1,000 ML IV SCH (12:22)
--- NOTE | 2019-06-15 12:25 | NUR ---
Dietitian Recommendations * Recommend resuming Vital AF 1.2 at 45 ml/hr, Banatrol BID, Free Water Flush: 150 ml Q6h via GT once procedure is done. Please see nutrition f/u note for details. CLAIR, RD
[2019-06-15] MEDS ORDERED: HYDROmorphone 2 MG/ML VIAL IVP PRN ×2 (12:30)
[2019-06-15] MEDS ORDERED: HYDROmorphone 1 MG INJ. 1 MG/ML AMPUL IVP PRN (12:30)
--- NOTE | 2019-06-15 13:20 | NUR ---
AT 1320 P.M,PATIENT FINISHED TRACHEOSTOMY ,TRANSFER FROM O.R TO ICU, RECEIVED NURSING REPORT FROM Lani MAYER R.N
--- NOTE | 2019-06-15 13:30 | NUR ---
SEE PATIENT, ORDERED KEEP NPO AT THIS TIME, AND FOLLOW UP STAT CHEST X-RAY
[2019-06-15] MEDS: ALBUMIN HUMAN 25% 50 ML IV SCH ×2 (14:24→20:20)
--- NOTE | 2019-06-15 15:14 | NUR ---
DC PLANNING Called & spoke w Dr Peterson & discussed dc planing. Per Dr Peterson pt not stable or ready for LTAC, LTAC might be plan once stable to call insurance if LTAC covered. Called & left msg w SUE Coelho @ [facility] PPO ph [phone].
--- NOTE | 2019-06-15 15:47 | NUR ---
REPORTED TO REGARDING OF CHEST X-RAY RESULT, ORDERED DISCONTINUE N.P.O, START G-T FEEDING AND ALL P.O MEDICATIONS
[2019-06-15] MEDS: cloNIDine HCL 0.3 MG/24 HR PATCH.TDWK TD SCH (16:08)
--- NOTE | 2019-06-15 17:00 | NUR ---
SEE PATIENT, ORDERED GIVE 25% ALBUMIN 50 ML IVPB, TOTAL 3 DOSES
[2019-06-15] MEDS: INSULIN LISPRO SLIDING SCALE 100 UNITS/ML VIAL (humaLOG) SUBCUT PRN (17:29)
--- NOTE | 2019-06-15 19:31 | NUR ---
GIVE COMPLETE NURSING REPORT TO SHIFT LAB TECHNICIANMAXI XIAO R.N
--- NOTE | 2019-06-15 19:35 | NUR ---
Opening Note Pt in bed asleep. SR on the monitor, Pt has trach in place, portex 7. AC 12, TV 280, FIO2 35%, and PEEP 8. Pt tolerating well, no s/s of distress noted. Pt has RIJ TLC. IV site looks C/D/I. No leakage noted, but two lines unable to be flushed. Good blood return. Pt has G-tube in place running TF, no residual noted. Pt tolerating feedings well. Pt has Lema catheter in place and flexiseal in pace. No leakage noted. Draining to gravity. Pt has Rt wrist restraint in place for attempting to pull out tubes. Skin intact, no breakdown noted. Bed locked in lowest position, call light in reach and safety precautions in place. Father at bedside. Will continue to monitor.
[2019-06-15] MEDS: ACETYLCYSTEINE 20% 4 ML VIAL (RT) INH SCH (19:42)
[2019-06-15] MEDS: VORICONAZOLE 200 MG in NS 100 ML IV SCH (20:20)
[2019-06-15] MEDS: LATANOPROST 2.5 ML DROPS (XALATAN) OP SCH (20:26)
[2019-06-15] MEDS: EMOLLIENT COMBINATION NO.73 78 GM CREAM..G. TP SCH (20:26)
[2019-06-15] MEDS: HYDROCORTISONE 1%, 28.35 GM TOPICAL CREAM TP SCH (20:26)
[2019-06-15] MEDS ORDERED: METOPROLOL TARTRATE 50 MG TABLET ONE (20:27)
[2019-06-16] VITALS (27 sets, daily range): BP systolic 122–162
[2019-06-16] MEDS: DILTIAZEM HCL 90 MG TABLET GT SCH ×4 (00:04→17:34)
[2019-06-16] MEDS: ALBUMIN HUMAN 25% 50 ML IV SCH (00:05)
[2019-06-16] MEDS: INSULIN LISPRO SLIDING SCALE 100 UNITS/ML VIAL (humaLOG) SUBCUT PRN ×3 (00:11→11:24)
[2019-06-16] MEDS: IPRATROPIUM BROM 0.5 MG/2.5 ML VIAL.NEB (ATROVENT) INH SCH ×3 (00:42→19:37)
[2019-06-16] MEDS: LevALBUTEROL HCL 1.25 MG/0.5 ML *CONC.* VIAL.NEB (XOPENEX CONC.) INH SCH ×3 (00:42→19:37)
--- NOTE | 2019-06-16 00:42 | NUR ---
RN Rounds Pt in bed asleep. Tolerating vent settings well. Trach noted w/ blood, dried, but no active bleeding noted. Pt showing no s/s of distress. G-tube feeding tolerated, and water flush given along w. 0000 meds. Pt remains afebrile. Will continue to monitor
--- NOTE | 2019-06-16 04:15 | NUR ---
RN Rounds Pt asleep. VSS. No s/s of distress noted. Pt trach site noted with dried blood, but no active bleeding. Will continue to monitor.
[2019-06-16] MEDS: metroNIDAZOLE 500 mg/NS 100 ML IV SCH ×3 (05:17→21:24)
[2019-06-16] MEDS: LEVOTHYROXINE SODIUM 0.025 MG TABLET GT SCH (05:17)
[2019-06-16] MEDS: HYDROCORTISONE SOD SUCC 100 MG/2 ML VIAL IVP SCH ×2 (05:17→17:37)
[2019-06-16 06:13] LABS: BASOPHILS % (AUTO) 0.2 % (0.0-2.0); HEMATOCRIT 25.3 % (36-54); HEMOGLOBIN 8.2 g/dL (14.0-18.0); MEAN CORPUSCULAR HEMOGLOBIN 30 pg (27-31); MEAN CORPUSCULAR HGB CONC 32 % (32-36); MEAN CORPUSCULAR VOLUME 93 fL (79.0-98.0); MONOCYTES # (AUTO) 1.4 K/uL (0.0-1.0); MONOCYTES % (AUTO) 9.3 % (1.7-9.3); NEUTROPHILS # (AUTO) 11.2 K/uL (1.8-7.7); NEUTROPHILS % (AUTO) 76.5 % (40.0-70.0); PLATELET COUNT (AUTO) 288 K/uL (130-430); RED BLOOD CELL COUNT(AUTO) 2.71 MIL/uL (4.2-6.2); RED CELL DISTRIBUTION WIDTH 20.8 % (9.0-15.0)
[2019-06-16 06:19] LABS: WHITE BLOOD COUNT (AUTO) 14.6 K/uL (4.8-10.8)
[2019-06-16] MEDS: INSULIN NPH 100 UNITS/ML 10 ML VIAL SUBCUT SCH ×2 (06:31→17:38)
[2019-06-16 06:33] LABS: ALBUMIN 2.8 g/dL (3.4-4.8); CALCIUM 9.2 mg/dL (8.4-11.0); CREATININE 1.53 mg/dL (0.55-1.30); POTASSIUM 3.4 mmol/L (3.5-5.1); TOTAL BILIRUBIN 0.2 mg/dL (0.0-1.0)
--- NOTE | 2019-06-16 06:39 | NUR ---
Closing Note Pt in bed asleep. SR on the monitor, occasional ST. Tolerating vent settings well. No s/s of distress noted. VSS. Pt has TLC RIJ in place running IVF. Site is C/D/I. No leakage noted. Ports able to be flushed and blood return noted. Pt has laureano catheter and flexiseal in place, no leakage noted. Pt has right wrist restraint on, no skin breakdown noted. G-tube running tubefeeding. Tolerating well, no residual noted. Will endorse to oncoming RN.
--- NOTE | 2019-06-16 07:06 | NUR ---
Endorsement Report given to RN at bedside via SBAR approach.
--- NOTE | 2019-06-16 07:19 | NUR ---
RECEIVED NURSING REPORT FROM JULIANNA XIAO R.N
[2019-06-16] MEDS: ACETYLCYSTEINE 20% 4 ML VIAL (RT) INH SCH ×2 (07:54→19:37)
--- NOTE | 2019-06-16 07:55 | NUR ---
DR. CHEN SEE PATIENT, ORDERED HOLD LOVENOX DOSE TODAY
[2019-06-16] MEDS: VORICONAZOLE 200 MG in NS 100 ML IV SCH ×2 (08:28→21:24)
[2019-06-16] MEDS: FOLIC ACID 1 MG TABLET GT SCH (08:29)
[2019-06-16] MEDS: CHOLESTYRAMINE/SUCROSE 4 GM/PACKET GT SCH (08:29)
[2019-06-16] MEDS: PANTOPRAZOLE SODIUM 40 MG/VIAL (PROTONIX) IVP SCH (08:29)
[2019-06-16] MEDS: DIPHENOXYLATE HCL/ATROP SULF 2.5 MG TAB PO SCH ×3 (08:29→21:23)
[2019-06-16] MEDS: CEFEPIME 1 GM in D5W 50 ML IV SCH (08:29)
[2019-06-16] MEDS: DIPHENHYDRAMINE HCL 12.5 MG/5 ML UDC GT SCH (08:29)
[2019-06-16] MEDS: BACLOFEN 10 MG TABLET GT SCH ×3 (08:30→21:23)
[2019-06-16] MEDS: CITRIC ACID/SODIUM CITRATE 30 ML UDC GT SCH ×3 (08:30→21:24)
[2019-06-16] MEDS: GEMFIBROZIL 600 MG TABLET (LOPID) GT SCH ×2 (08:30→21:23)
[2019-06-16] MEDS: PARoxetine HCL 20 MG TABLET GT SCH ×2 (08:30→21:23)
[2019-06-16] MEDS: FLUDROCORTISONE ACETATE 0.1 MG TABLET( FLORINEF) GT SCH (08:30)
[2019-06-16] MEDS: CHOLECALCIFEROL (VITAMIN D3) 2,000 UNIT TABLET GT SCH (08:30)
[2019-06-16] MEDS: VALPROIC ACID ORAL SYRUP 250 MG/5 ML UDC GT SCH ×3 (08:31→21:24)
[2019-06-16] MEDS: amLODIPine BESYLATE 5 MG TABLET GT SCH (08:31)
[2019-06-16] MEDS: ENOXAPARIN SODIUM 40 MG/0.4 ML SYRINGE SUBCUT SCH (08:32)
[2019-06-16] MEDS: NYSTATIN 15 GM TOPICAL POWDER TP SCH (08:32)
[2019-06-16] MEDS: METOPROLOL TARTRATE 50 MG TABLET GT SCH ×2 (09:13→21:22)
[2019-06-16] MEDS: NACL 0.9% 1,000 ML IV SCH (09:57)
[2019-06-16] MEDS: hydrALAZINE HCL 20 MG/ML VIAL IVP PRN (09:57)
--- NOTE | 2019-06-16 10:15 | NUR ---
SEE PATIENT AND UPDATED PATIENT,S CONDITION WITH PATIENT,S MOM AT BEDSIDE
[2019-06-16] MEDS ORDERED: FUROSEMIDE 20 MG/2 ML VIAL IVP ONE (11:00)
[2019-06-16] MEDS: LORazepam 2 MG/ML VIAL IM PRN (11:20)
[2019-06-16] MEDS: MORPHINE 2 MG/ML INJ. SYRINGE IVP PRN (11:22)
[2019-06-16] MEDS ORDERED: NS IRRIG SOLN 1000 ML IR ONE (11:30)
[2019-06-16] MEDS ORDERED: SEVOFLURANE 15 MIN GAS INH ONE (11:30)
[2019-06-16] MEDS ORDERED: fentaNYL CITRATE/PF 100 MCG/2 ML AMP IVP ONE (11:30)
[2019-06-16] MEDS ORDERED: ceFAZolin SODIUM 1 GM VIAL IV ONE (11:30)
[2019-06-16] MEDS ORDERED: D5W 50 ML IV.SOLN IV ONE (11:30)
[2019-06-16] MEDS ORDERED: NS 1000 ML IV.SOLN IV ONE (11:30)
[2019-06-16] MEDS ORDERED: MIDAZOLAM HCL 5 MG/5 ML VIAL IVP ONE (11:30)
--- NOTE | 2019-06-16 13:10 | NUR ---
SEE PATIENT, ORDERED START LASIX DRIP AT 5 MG/5ML/HOUR
[2019-06-16] MEDS ORDERED: FUROSEMIDE 100 MG in D5W 90 ML IV SCH (13:30)
--- NOTE | 2019-06-16 15:00 | NUR ---
CHG BED BATH DONE, G-T CARE DONE
--- NOTE | 2019-06-16 15:50 | NUR ---
AT 1545 P.M, SEE PATIENT
--- NOTE | 2019-06-16 16:06 | NUR ---
DC Planning: Requested from valente Barney at [facility], requesting dcp to lower level of care or LTAC. Dr. Peterson made aware, he stated the pt is too sick today. He will decide tomorrow.
--- NOTE | 2019-06-16 18:00 | NUR ---
AT [address] BARNHART SEE PATIENT
--- NOTE | 2019-06-16 19:34 | NUR ---
GIVE COMPLETE NURSING REPORT TO PACK ROOM OPERATORMAXI BANKS R.N
--- NOTE | 2019-06-16 20:00 | NUR ---
OPENS EYES SPON. DOES NOT FOLLOW COMMANDS. ANASARCA NOTED. TRACH TO VENT. SUCTIONED WITH SCANT AMOUNT OF THICK MOSQUEDA COLORED MUCUS OBTAINED. ORAL CARE GIVEN. GT FEEDING WITH VITAL AF 1.2 AT 45CC/HR. RESIDUAL CHECK 10CC. LEFT ARM AND LE CONTRACTED. RIGHT SOFT WRIST RESTRAINT ON FOR SAFETY. MENDOZA CATH PATENT DRAINING CLOUDY SPENCER URINE TO GRAVITY. FLEXISEAL IN PLACE WITH WATERY BROWN LBM NOTED. RIJ TLC DRSG D/I. ON LASIX DRIP AT 5 MG/HR. SR.
[2019-06-16] MEDS ORDERED: FUROSEMIDE 20 MG/2 ML VIAL IVP SCH (21:00)
[2019-06-16] MEDS: EMOLLIENT COMBINATION NO.73 78 GM CREAM..G. TP SCH (21:25)
[2019-06-16] MEDS: HYDROCORTISONE 1%, 28.35 GM TOPICAL CREAM TP SCH (21:25)
[2019-06-16] MEDS: LATANOPROST 2.5 ML DROPS (XALATAN) OP SCH (21:26)
--- NOTE | 2019-06-16 22:00 | NUR ---
SUCTIONED. TURNED. HS CARE RENDERED.
[2019-06-17] VITALS (35 sets, daily range): BP systolic 129–165
--- NOTE | 2019-06-17 | NUR ---
DOZES ON AND OFF. SUCTIONED WITH SAME RESULTS. ORAL CARE GIVEN. RESIDUAL CHECK 10CC. GT FLUSHED [id number] H2O. ACCU-CHEK 155, 2 UNITS HUMALOG INSULIN SQ GIVEN PER SLIDING SCALE COV. CIRCULATION CHECK DONE. REPOSITIONED.
[2019-06-17] MEDS: DILTIAZEM HCL 90 MG TABLET GT SCH ×5 (00:33→23:46)
[2019-06-17] MEDS: INSULIN LISPRO SLIDING SCALE 100 UNITS/ML VIAL (humaLOG) SUBCUT PRN ×4 (00:36→17:27)
[2019-06-17] MEDS: IPRATROPIUM BROM 0.5 MG/2.5 ML VIAL.NEB (ATROVENT) INH SCH ×4 (00:58→19:00)
[2019-06-17] MEDS: LevALBUTEROL HCL 1.25 MG/0.5 ML *CONC.* VIAL.NEB (XOPENEX CONC.) INH SCH ×4 (00:58→19:00)
--- NOTE | 2019-06-17 02:00 | NUR ---
SOUNDLY ASLEEP. SUCTIONED. TURNED.
--- NOTE | 2019-06-17 04:00 | NUR ---
SLEPT INTERMITTENTLY. CIRCULATION CHECK DONE. ORAL CARE. SUCTIONED. TURNED. AM CARE DONE. ADRIANNA WELL. RESIDUAL CHECK 10 CC.
[2019-06-17 05:56] LABS: BASOPHILS % (AUTO) 0.3 % (0.0-2.0); HEMATOCRIT 26.4 % (36-54); HEMOGLOBIN 8.5 g/dL (14.0-18.0); LYMPHOCYTES # (AUTO) 1.7 K/uL (1.0-5.5); LYMPHOCYTES % (AUTO) 10.4 % (20.5-51.5); MEAN CORPUSCULAR HEMOGLOBIN 30 pg (27-31); MEAN CORPUSCULAR HGB CONC 32 % (32-36); MEAN CORPUSCULAR VOLUME 93 fL (79.0-98.0); MONOCYTES # (AUTO) 1.2 K/uL (0.0-1.0); MONOCYTES % (AUTO) 7.6 % (1.7-9.3); NEUTROPHILS % (AUTO) 81.7 % (40.0-70.0); PLATELET COUNT (AUTO) 287 K/uL (130-430); RED BLOOD CELL COUNT(AUTO) 2.84 MIL/uL (4.2-6.2); RED CELL DISTRIBUTION WIDTH 21.4 % (9.0-15.0)
--- NOTE | 2019-06-17 06:00 | NUR ---
SUCTIONED AND TURNED Q2 HRS AND PRN. ACCU-CHEK 131, NO INSULIN DUE PER SLIDING SCALE COV. UO GOOD. FLEXISEAL 500CC OUT. REMAINS IN GUARDED CONDITION.
[2019-06-17] MEDS: LEVOTHYROXINE SODIUM 0.025 MG TABLET GT SCH (06:01)
[2019-06-17] MEDS: HYDROCORTISONE SOD SUCC 100 MG/2 ML VIAL IVP SCH ×2 (06:01→17:21)
[2019-06-17] MEDS: metroNIDAZOLE 500 mg/NS 100 ML IV SCH ×3 (06:01→22:15)
[2019-06-17 06:09] LABS: ALBUMIN 2.5 g/dL (3.4-4.8); CALCIUM 8.9 mg/dL (8.4-11.0); CREATININE 1.77 mg/dL (0.55-1.30); POTASSIUM 3.1 mmol/L (3.5-5.1); TOTAL BILIRUBIN 0.2 mg/dL (0.0-1.0)
--- NOTE | 2019-06-17 07:17 | NUR ---
RECEIVED NURSING REPORT FROM MORTGAGE CLOSERMAXI BANKS R.N
[2019-06-17] MEDS: ACETYLCYSTEINE 20% 4 ML VIAL (RT) INH SCH ×3 (07:29→21:00)
--- NOTE | 2019-06-17 07:29 | NUR ---
RT NOTES There appears to be subcutaneous emphysema around face, neck and chest. RN aware. Addendum: 06/17/19 at 0833 by Delilah Cerda RT Amended: Links added.
[2019-06-17] MEDS: INSULIN NPH 100 UNITS/ML 10 ML VIAL SUBCUT SCH ×2 (07:43→17:34)
[2019-06-17] MEDS: LORazepam 2 MG/ML VIAL IM PRN ×2 (08:05→17:50)
[2019-06-17] MEDS: MORPHINE 2 MG/ML INJ. SYRINGE IVP PRN ×2 (08:07→17:22)
[2019-06-17] MEDS: FUROSEMIDE 100 MG in D5W 90 ML IV SCH (08:08)
[2019-06-17] MEDS: CHOLESTYRAMINE/SUCROSE 4 GM/PACKET GT SCH (08:09)
[2019-06-17] MEDS: CITRIC ACID/SODIUM CITRATE 30 ML UDC GT SCH ×3 (08:09→20:36)
[2019-06-17] MEDS: DIPHENHYDRAMINE HCL 12.5 MG/5 ML UDC GT SCH (08:09)
[2019-06-17] MEDS: VALPROIC ACID ORAL SYRUP 250 MG/5 ML UDC GT SCH ×3 (08:09→20:37)
[2019-06-17] MEDS: PANTOPRAZOLE SODIUM 40 MG/VIAL (PROTONIX) IVP SCH (08:09)
[2019-06-17] MEDS: FOLIC ACID 1 MG TABLET GT SCH (08:10)
[2019-06-17] MEDS: DIPHENOXYLATE HCL/ATROP SULF 2.5 MG TAB PO SCH ×3 (08:10→20:37)
[2019-06-17] MEDS: CHOLECALCIFEROL (VITAMIN D3) 2,000 UNIT TABLET GT SCH (08:10)
[2019-06-17] MEDS: PARoxetine HCL 20 MG TABLET GT SCH ×2 (08:10→20:37)
[2019-06-17] MEDS: FLUDROCORTISONE ACETATE 0.1 MG TABLET( FLORINEF) GT SCH (08:10)
[2019-06-17] MEDS: BACLOFEN 10 MG TABLET GT SCH ×3 (08:10→20:37)
[2019-06-17] MEDS: GEMFIBROZIL 600 MG TABLET (LOPID) GT SCH ×2 (08:10→20:37)
[2019-06-17] MEDS: NACL 0.9% 1,000 ML IV SCH (08:13)
[2019-06-17] MEDS: NYSTATIN 15 GM TOPICAL POWDER TP SCH (08:13)
[2019-06-17] MEDS: VORICONAZOLE 200 MG in NS 100 ML IV SCH ×2 (08:14→20:37)
[2019-06-17] MEDS: METOPROLOL TARTRATE 50 MG TABLET GT SCH ×2 (08:16→20:38)
[2019-06-17] MEDS: amLODIPine BESYLATE 5 MG TABLET GT SCH (08:16)
[2019-06-17] MEDS: CEFEPIME 1 GM in D5W 50 ML IV SCH (09:09)
--- NOTE | 2019-06-17 09:25 | NUR ---
SEE PATIENT AND UPDATED PATIENT,S CONDITION WITH PATIENT,S MON AT BEDSIDE, AND CHANGE VENTILATOR SETTING TO SIMV, FOLLOW UP ABG AFTER 1 HOURS, ORDERED GIVE KCL 40 MEQ VIA G-T X ONCE FOR POTASSIUM 3.1 Addendum: 06/17/19 at 1251 by Kg Lea RN SEE PATIENT AND UPDATED PATIENT,S CONDITION WITH PATIENT,S MON AT BEDSIDE, AND CHANGE VENTILATOR SETTING TO SIMV, AND FOLLOW UP ABG ,CBC, CMP, CHEST X-RAY IN TOMORROW A.M, ORDERED GIVE KCL 40 MEQ VIA G-T X ONCE FOR POTASSIUM 3.1
--- NOTE | 2019-06-17 09:25 | NUR ---
RT NOTES Per jonh Vo did not indicate sub-cutaneous emphysema. Vent settings to SIMV 10 PS10 Vt [address] Lerma's order. Will monitor pt. RN to notify wound care nurse regarding new trach tube placement for new surgical site treatment. Addendum: 06/17/19 at 1022 by Delilah Cerda RT Amended: Links added.
[2019-06-17] MEDS ORDERED: POTASSIUM CHLORIDE 20 MEQ/PKT PACKET PO ONE (10:00)
--- NOTE | 2019-06-17 10:00 | NUR ---
SEE PATIENT, ORDERED GIVE LOVENOX 40 MG SUBQ DAILY
[2019-06-17] MEDS ORDERED: ENOXAPARIN SODIUM 40 MG/0.4 ML SYRINGE SUBCUT ONE (10:30)
--- NOTE | 2019-06-17 11:05 | NUR ---
SEE PATIENT, AND UPDATED PATIENT,S CONDITION WITH MOM AT BEDSIDE
--- NOTE | 2019-06-17 11:24 | NUR ---
AT 1120 A.M, DR. MORALES SEE PATIENT, ORDERED KEEP SAME LASIX DRIP DOSE
--- NOTE | 2019-06-17 12:05 | NUR ---
AT 1205 P.M DURING THE SIMV WEANING, PATIENT IS NOT TOLERATED WELL, ORDERED BACK TO AC MODE ( VENTILATOR) BY ASAEL Lyon
--- NOTE | 2019-06-17 12:05 | NUR ---
RT NOTES Vent settings back to AC 12 due to low tidal volume being achieved. RN made aware
[2019-06-17] MEDS ORDERED: DIPHENHYDRAMINE INJ 50 MG/ML VIAL IVP ONE (13:30)
--- NOTE | 2019-06-17 13:30 | NUR ---
SEE PATIENT WAS AWARE PATIENT,S FACE SWOLLEN GETTING WORSE, ORDERED GIVE BENADRYL 25 MG IVP EVERY 6 HOURS
--- NOTE | 2019-06-17 13:38 | NUR ---
Case mgt: Met w/Dr. Peterson at pt's bedside--pt has increased facial swelling today (facial angio neurotic edema per Dr. Peterson)-IV Solumedrol dose being increased by Dr. Peterson--Pt unstable for LTAC evaluation today per Dr. Peterson--will f/u for dc planning tomorrow-- JUDY
--- NOTE | 2019-06-17 14:00 | NUR ---
DR. PACHECO SEE PATIENT, WAS AWARE PATIENT,S FACE SWOLLEN GETTING WORSE, ORDERED GIVE FREE WATER FLUSH 200 ML VIA G-T EVERY 4 HOURS
[2019-06-17] MEDS: DIPHENHYDRAMINE INJ 50 MG/ML VIAL IVP SCH ×2 (17:21→23:45)
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
--- NOTE | 2019-06-17 19:56 | NUR ---
Opening Note Pt in bed asleep. SR on the monitor. Pt is trach to vent, settings: Ac10, 35%, 320, +5. Pt tolerating well, no s/s of distress noted, saturating in the mid-high 90s. Pt noted with facial swelling and angioedema. No compromise in airway noted. Pt is on Lasix and Benadryl to help combat the swelling. RIJ TLC in place running IVF and Lasix Drip @5mg/hr. No s/s of leakage noted. IV site C/D/I. Pt has Flexiseal and Lema catheter in place, draining to gravity. No skin breakdown noted. Father at bedside, will continue to monitor.
[2019-06-17] MEDS: LATANOPROST 2.5 ML DROPS (XALATAN) OP SCH (20:38)
[2019-06-17] MEDS: EMOLLIENT COMBINATION NO.73 78 GM CREAM..G. TP SCH (20:39)
[2019-06-17] MEDS: HYDROCORTISONE 1%, 28.35 GM TOPICAL CREAM TP SCH (20:39)
[2019-06-18] VITALS (35 sets, daily range): BP systolic 136–192
--- NOTE | 2019-06-18 00:50 | NUR ---
RN Rounds Pt in bed asleep. No s/s of distress noted. VSS. Pt tolerating vent settings well. Facial swelling remains the same. No respiratory compromise noted. G-tube feeding running, no residual noted. Water flush given. Will continue to monitor.
[2019-06-18] MEDS: IPRATROPIUM BROM 0.5 MG/2.5 ML VIAL.NEB (ATROVENT) INH SCH ×4 (01:55→19:38)
[2019-06-18] MEDS: LevALBUTEROL HCL 1.25 MG/0.5 ML *CONC.* VIAL.NEB (XOPENEX CONC.) INH SCH ×4 (01:55→19:38)
--- NOTE | 2019-06-18 04:18 | NUR ---
RN Rounds Pt in bed asleep. VSS. No s/s of distress noted. Pt tolerating feedings, no residual noted. Flushed with 200ml H2O. Lasix Drip infusing @5mg/hr. Will continue to monitor.
[2019-06-18] MEDS: DIPHENHYDRAMINE INJ 50 MG/ML VIAL IVP SCH ×4 (05:15→23:40)
[2019-06-18] MEDS: LEVOTHYROXINE SODIUM 0.025 MG TABLET GT SCH (05:15)
[2019-06-18] MEDS: FUROSEMIDE 100 MG in D5W 90 ML IV SCH (05:15)
[2019-06-18] MEDS: DILTIAZEM HCL 90 MG TABLET GT SCH ×4 (05:15→23:41)
[2019-06-18] MEDS: HYDROCORTISONE SOD SUCC 100 MG/2 ML VIAL IVP SCH ×2 (05:16→17:18)
[2019-06-18] MEDS: cloNIDine HCL 0.1 MG TABLET GT PRN ×2 (05:16→21:23)
[2019-06-18] MEDS: metroNIDAZOLE 500 mg/NS 100 ML IV SCH ×3 (05:19→21:25)
[2019-06-18 05:46] LABS: BASOPHILS % (AUTO) 0.2 % (0.0-2.0); HEMATOCRIT 25.2 % (36-54); HEMOGLOBIN 8.1 g/dL (14.0-18.0); LYMPHOCYTES # (AUTO) 1.5 K/uL (1.0-5.5); LYMPHOCYTES % (AUTO) 10.1 % (20.5-51.5); MEAN CORPUSCULAR HEMOGLOBIN 30 pg (27-31); MEAN CORPUSCULAR HGB CONC 32 % (32-36); MEAN CORPUSCULAR VOLUME 93 fL (79.0-98.0); MONOCYTES # (AUTO) 1.3 K/uL (0.0-1.0); MONOCYTES % (AUTO) 8.6 % (1.7-9.3); NEUTROPHILS # (AUTO) 11.8 K/uL (1.8-7.7); NEUTROPHILS % (AUTO) 81.1 % (40.0-70.0); PLATELET COUNT (AUTO) 272 K/uL (130-430); RED BLOOD CELL COUNT(AUTO) 2.71 MIL/uL (4.2-6.2); RED CELL DISTRIBUTION WIDTH 22.1 % (9.0-15.0); WHITE BLOOD COUNT (AUTO) 14.6 K/uL (4.8-10.8)
[2019-06-18 06:06] LABS: ALBUMIN 2.4 g/dL (3.4-4.8); CREATININE 2.1 mg/dL (0.55-1.30); POTASSIUM 3.5 mmol/L (3.5-5.1); TOTAL BILIRUBIN 0.2 mg/dL (0.0-1.0)
[2019-06-18] MEDS: INSULIN NPH 100 UNITS/ML 10 ML VIAL SUBCUT SCH ×2 (06:10→17:17)
--- NOTE | 2019-06-18 06:18 | NUR ---
Closing Note Pt in bed asleep. SR on the monitor. Pt is vent to trach, settings remain the same. Pt tolerating well, saturating in the 90s. No distress noted. Pt has RIJ TLC in place, infusingIVF and Lasix Drip @5mg/hr. No s/s of leakage noted. G-tube running tubefeeding, no residual noted. Water flushes given, and Pt tolerating well. Lema catheter in place and flexiseal in place. No leakage noted, draining to gravity. Pt skin intact. Severe facial edema noted. No respiratory compromise noted. Bed locked in lowest position, call light in reach and safety precautions in place. Will continue to monitor.
--- NOTE | 2019-06-18 07:17 | NUR ---
Endorsement Report given to oncoming RN at bedside via SBAR approach.
[2019-06-18] MEDS: ACETYLCYSTEINE 20% 4 ML VIAL (RT) INH SCH ×3 (07:26→21:00)
--- NOTE | 2019-06-18 07:30 | NUR ---
Opening Note Received plan of care via sbar from endorsing nurse Amauri KIM. Completed patient round and all safety measures checked.
[2019-06-18] MEDS: DIPHENOXYLATE HCL/ATROP SULF 2.5 MG TAB PO SCH ×3 (08:38→21:23)
[2019-06-18] MEDS: CHOLECALCIFEROL (VITAMIN D3) 2,000 UNIT TABLET GT SCH (08:39)
[2019-06-18] MEDS: PARoxetine HCL 20 MG TABLET GT SCH ×2 (08:39→21:24)
[2019-06-18] MEDS: BACLOFEN 10 MG TABLET GT SCH ×3 (08:39→21:24)
[2019-06-18] MEDS: FOLIC ACID 1 MG TABLET GT SCH (08:39)
[2019-06-18] MEDS: CHOLESTYRAMINE/SUCROSE 4 GM/PACKET GT SCH (08:40)
[2019-06-18] MEDS: METOPROLOL TARTRATE 50 MG TABLET GT SCH ×2 (08:40→21:23)
[2019-06-18] MEDS: FLUDROCORTISONE ACETATE 0.1 MG TABLET( FLORINEF) GT SCH (08:40)
[2019-06-18] MEDS: PANTOPRAZOLE SODIUM 40 MG/VIAL (PROTONIX) IVP SCH (08:40)
[2019-06-18] MEDS: VALPROIC ACID ORAL SYRUP 250 MG/5 ML UDC GT SCH ×3 (08:41→21:24)
[2019-06-18] MEDS: NYSTATIN 15 GM TOPICAL POWDER TP SCH (08:42)
[2019-06-18] MEDS: CITRIC ACID/SODIUM CITRATE 30 ML UDC GT SCH ×3 (08:42→21:23)
[2019-06-18] MEDS: VORICONAZOLE 200 MG in NS 100 ML IV SCH (08:45)
[2019-06-18] MEDS: ENOXAPARIN SODIUM 40 MG/0.4 ML SYRINGE SUBCUT SCH (08:46)
--- NOTE | 2019-06-18 09:00 | NUR ---
Dr. Suarez at bedside. Per Dr. Suarez he would be cancelling amliodipine and gemfibrozil. He will give albumin.
--- NOTE | 2019-06-18 09:00 | NUR ---
Dr. Lerma at bedside. Received orders to change AC from 10 to 12. RT has been informed.
[2019-06-18] MEDS: CEFEPIME 1 GM in D5W 50 ML IV SCH (09:01)
--- NOTE | 2019-06-18 10:00 | NUR ---
Received call back from Dr. Benitez. Explained that tracheostomy site still moderately bleeding and facial edema. Per Dr. Benitez he is aware of the facial edema. Received orders to change dressing because it has been 2 days since surgery.
--- NOTE | 2019-06-18 10:06 | NUR ---
Called Demetrius for assistance in assessing tracheostomy site. Left message.
--- NOTE | 2019-06-18 10:15 | NUR ---
Wound Care Follow Up: Spoke with JUDY Cornejo, and made an appointment to come back after 2:30 PM to do tracheostomy site assessment when respiratory therapist was available to assist.
[2019-06-18 11:34] LABS: FREE T4 (FREE THYROXINE) 0.5 ng/dl (0.8-1.5); THYROID STIMULATING HORMONE 3.48 uIu/mL (0.36-3.74)
[2019-06-18] MEDS: ALBUMIN HUMAN 25% 50 ML IV SCH ×3 (11:43→17:05)
[2019-06-18] MEDS: NACL 0.9% 1,000 ML IV SCH (11:43)
--- NOTE | 2019-06-18 12:55 | NUR ---
Called Dr. Benitez with a consult(Eren Tolliver) spoke with Yesi from the exchange
--- NOTE | 2019-06-18 13:45 | NUR ---
Dr. Peterson at bedside. Received orders to hold water flushes.
--- NOTE | 2019-06-18 14:10 | NUR ---
Wound Re-Evaluation: Patient evaluated for a low Jacob score of 12. Patient was awake, non-verbal, non-responsive to verbal commands, on tracheostomy tube ventilator, and received in a Shaunna Bed with an IsoFlex CESILIA mattress with low air loss therapy. Patient needs to be turned in bed. Clemente RN, was concerned about sanguineous soaked drain pads with quiet lesion on tracheostomy site that was created about 3 days ago. Skin assessment: 1. Tracheostomy site: Tracheostomy site dressing is soaked with sanguineous drainage and coagulated blood. Patient has a lot of adipose tissue around neck creating an increased risk for intertriginous dermatitis. After cleansing involved area the skin was intact without erythema or maceration. Treatment performed along with two RN's and an RT on standby: Removed sanguineous soaked drain pads and cleaned the tracheostomy site with normal saline. Dried areas with gauze. Suctioned out any excess blood from underneath the plastic tracheostomy tube that makes contact with the skin. Attending RN changed the central line dressing on right chest secondary to soiling from sanguineous drainage. A new tracheostomy tie was placed with inter-dry AG cloth underneath. In addition, peristomal site had new drain pads place with a alginate dressing cut to size on the skin side with the drain pad on top. Recommend change inter-dry AG dressing every 5 days and when necessary for soiling. After treatment was done the ICU nursing staff clean and base of the patient and replace down along with doing a CHG wipe for the central line dressing replacement to prevent infection. Recommend: Change drain pads daily and when necessary for soiling. Change inter-dry AG cloth every 5 days and as needed for soiling. Continue to monitor site for sanguineous or hemorrhaging shift. Informed physician if site continues to have sanguineous drainage or coagulation tissue. 2. Buttock: Scar tissue. Skin is intact. Recommend: Cleanse involved area with mild soap and water. Pat dry. Apply moisture barrier cream to involved area. Perform site care 4 times a day, and as needed for soiling. Do not place patient in supine position at any time. Recommend: Reposition patient [id number] only every 2 hours with pillow support. Elevate, off-load and float bilateral heels with pillows. Offload pressure areas with pillows for pressure re-distribution. Perform skin care and monitor skin integrity Q shift. Use moisture barrier cream on moisture susceptible areas QID and PRN for soiling. Maintain patient on low air-loss therapy.
--- NOTE | 2019-06-18 14:10 | NUR ---
RT NOTES Standby while Rn and wound care nurse clean tracheal stoma, trach tube remains sutured. trach ties changed. trach tube remains in place.
--- NOTE | 2019-06-18 15:30 | NUR ---
Nutrition F/U RD reviewed pt's current EMR including diet Hx, physician notes, nursing notes, pertinent labs/meds/procedures, care trends and care activity. Current Nutrition Support: Vital AF 1.2 at 45ml/hr, Banatrol BID via GT x 27 days, Free Water Flush: 200ml Q4h x 1 day Provides: 1296 kcal/day, 81 gm protein/day, and 2076 ml free water/day Meets: 88% of lower end of estimated caloric needs and 101% of upper end of estimated protein needs Subjective information: Pt s/p tracheostomy 06/15/19. MD notes worsening renal function, has increased swelling and edema, and may need dialysis soon. Per EMR, urine output at 850ml, +stool output at 600ml 06/17/19. Father at bedside. TF enfusing per MD order. 5ml residuals today per RN note. Labs: A1c 8.3H, (06/18/19) BUN: 76H, Cr: 2.10H, eGFR 49L, POC: 149H, 140H Problem/Etiology/Signs/Symptoms Altered GI function r/t medication AEB flagyl and reports of diarrhea per nursing staff *ongoing* Altered nutrition related lab values related to renal dysfunction as evidenced by BUN: 76H, Cr: 2.10H, eGFR 49L *new* NEW Estimated Energy Expenditure (kcals/day) 0270-5629 kcal/day (25-30kcal/kg CBW for critical illness) Estimated Protein Required (g/day) 38 gm/day (0.8gm/kg CBW for ARF) Estimated Fluid Required (l/day) Deferred to MD d/t ARF Expected Outcomes/Goals Monitor EN support and intake w/ goal of pt meeting at least 75% of estimated nutritional needs, labs trending WNL, normal GI function, skin integrity/wt maintenance. Dietitian Recommendations * Continue Vital AF 1.2 at 45ml/hr, Banatrol BID via GT * Free water flush per MD * If renal function continues to decline, consider TF change to Nepro w/ Banatrol BID Follow Up High Risk: F/U in 2-3 days
--- NOTE | 2019-06-18 15:36 | NUR ---
Dietitian Recommendations * Continue Vital AF 1.2 at 45ml/hr, Banatrol BID via GT * Free water flush per MD * If renal function continues to decline, consider TF change to Nepro w/ Banatrol BID Please see Nutrition Follow Up for further details. LT, RD
[2019-06-18] MEDS: hydrALAZINE HCL 20 MG/ML VIAL IVP PRN (17:12)
--- NOTE | 2019-06-18 19:55 | NUR ---
Opening Note Pt in bed, SR on the monitor. Trach to vent, settings: AC12, 320, 35%, +5. No s/s of distress noted. Pt has TLC RIJ in place running IVF and Lasix Drip @5mg/hr. Last port unable to flush, will continue to try throughout shift. Pt has g-tube in place running Tubefeeding. Pt tolerating well, no residual noted. Lema catheter in place draining minimal urine. Flexiseal in place as well, no leakage noted. Skin taut to touch, anasarca noted, and facial angioedema present. No compromise in respiratory status. Safety precautions in place. Will continue to monitor.
--- NOTE | 2019-06-18 20:45 | NUR ---
MD Called Spoke with Dr. Benitez regarding Pt Sx for dialysis catheter. Said Sx for Placement of Central Venous Dialysis Catheter to be done tomorrow around 11 PM.
[2019-06-18] MEDS: EMOLLIENT COMBINATION NO.73 78 GM CREAM..G. TP SCH (21:24)
[2019-06-18] MEDS: HYDROCORTISONE 1%, 28.35 GM TOPICAL CREAM TP SCH (21:24)
[2019-06-18] MEDS: LATANOPROST 2.5 ML DROPS (XALATAN) OP SCH (21:24)
[2019-06-18] MEDS: MORPHINE 2 MG/ML INJ. SYRINGE IVP PRN (22:18)
[2019-06-19] VITALS (31 sets, daily range): BP systolic 132–218
[2019-06-19] MEDS: hydrALAZINE HCL 20 MG/ML VIAL IVP PRN ×2 (00:12→17:42)
--- NOTE | 2019-06-19 00:48 | NUR ---
RN Rounds Pt in bed asleep. SR on the monitor. Tolerating vent settings well. Pt BP increasing, PRN medication given. Will continue to watch BP. Edema still present, Pt skin feels taut to touch. Will continue to monitor.
[2019-06-19] MEDS: IPRATROPIUM BROM 0.5 MG/2.5 ML VIAL.NEB (ATROVENT) INH SCH ×4 (01:51→20:23)
[2019-06-19] MEDS: LevALBUTEROL HCL 1.25 MG/0.5 ML *CONC.* VIAL.NEB (XOPENEX CONC.) INH SCH ×4 (01:51→20:23)
[2019-06-19] MEDS: cloNIDine HCL 0.1 MG TABLET GT PRN ×2 (02:37→21:42)
[2019-06-19] MEDS: FUROSEMIDE 100 MG in D5W 90 ML IV SCH ×2 (02:37→23:04)
--- NOTE | 2019-06-19 03:35 | NUR ---
RN Rounds Pt in bed asleep. No s/s of distress noted. Tolerating vent settings well. Pt remains edematous. BP elevated, but trending down. PRN medications have been given. Will continue to monitor.
[2019-06-19] MEDS: LEVOTHYROXINE SODIUM 0.025 MG TABLET GT SCH (05:24)
[2019-06-19] MEDS: metroNIDAZOLE 500 mg/NS 100 ML IV SCH (05:24)
[2019-06-19] MEDS: DILTIAZEM HCL 90 MG TABLET GT SCH ×4 (05:25→23:04)
[2019-06-19] MEDS: HYDROCORTISONE SOD SUCC 100 MG/2 ML VIAL IVP SCH ×2 (05:25→18:28)
[2019-06-19] MEDS: DIPHENHYDRAMINE INJ 50 MG/ML VIAL IVP SCH ×2 (05:25→14:04)
[2019-06-19] MEDS: DEXTROSE 50% JECT 50 ML DISP.SYRIN IVP PRN ×2 (05:41→10:37)
[2019-06-19] MEDS ORDERED: D5W 1,000 ML IV PRN (05:43)
[2019-06-19] MEDS ORDERED: GLUCOSE 15 GM GEL (in 37.5 GM TUBE) PO PRN (05:45)
[2019-06-19 05:50] LABS: BASOPHILS % (AUTO) 0.2 % (0.0-2.0); EOSINOPHILS % (AUTO) 0.3 % (0.0-4.0); HEMATOCRIT 22.9 % (36-54); HEMOGLOBIN 7.2 g/dL (14.0-18.0); LYMPHOCYTES # (AUTO) 2.3 K/uL (1.0-5.5); LYMPHOCYTES % (AUTO) 16.4 % (20.5-51.5); MEAN CORPUSCULAR HEMOGLOBIN 29 pg (27-31); MEAN CORPUSCULAR HGB CONC 32 % (32-36); MEAN CORPUSCULAR VOLUME 93 fL (79.0-98.0); MONOCYTES # (AUTO) 1.2 K/uL (0.0-1.0); MONOCYTES % (AUTO) 8.7 % (1.7-9.3); NEUTROPHILS # (AUTO) 10.6 K/uL (1.8-7.7); NEUTROPHILS % (AUTO) 74.4 % (40.0-70.0); PLATELET COUNT (AUTO) 222 K/uL (130-430); RED BLOOD CELL COUNT(AUTO) 2.46 MIL/uL (4.2-6.2); RED CELL DISTRIBUTION WIDTH 21.6 % (9.0-15.0); WHITE BLOOD COUNT (AUTO) 14.3 K/uL (4.8-10.8)
--- NOTE | 2019-06-19 06:35 | NUR ---
Closing Note Pt in bed, SR on the monitor, PT trach to vent, settings remains the same. Pt has RIJ TLC, No s/s of leakage noted. IVF infusing and Lasix Drip infusing @5mg/hr. Pt has flexiseal in place draining to gravity. Lema catheter noted w/ minimal output. Pt g-tube clamped. No residual noted. Pt remains edematous. Will endorse to oncoming RN
[2019-06-19 06:45] LABS: ALBUMIN 2.7 g/dL (3.4-4.8); CALCIUM 8.8 mg/dL (8.4-11.0); CREATININE 2.28 mg/dL (0.55-1.30); TOTAL BILIRUBIN 0.2 mg/dL (0.0-1.0)
[2019-06-19 06:51] LABS: POTASSIUM 2.9 mmol/L (3.5-5.1)
[2019-06-19] MEDS ORDERED: INSULIN NPH 100 UNITS/ML 10 ML VIAL SUBCUT SCH (07:00)
--- NOTE | 2019-06-19 07:18 | NUR ---
Endorsement Report given to oncoming RN at bedside via SBAR approach.
--- NOTE | 2019-06-19 07:25 | NUR ---
AM ASSESSMENT Pt received from night RN using SBAR.
[2019-06-19] MEDS ORDERED: D5W 1,000 ML IV SCH (07:45)
[2019-06-19] MEDS ORDERED: POTASSIUM CHLORIDE 20 MEQ/PKT PACKET PO ONE (07:45)
[2019-06-19] MEDS: ACETYLCYSTEINE 20% 4 ML VIAL (RT) INH SCH ×2 (07:59→14:00)
[2019-06-19] MEDS: VALPROIC ACID ORAL SYRUP 250 MG/5 ML UDC GT SCH ×3 (08:06→20:01)
[2019-06-19] MEDS ORDERED: D10W 1,000 ML IV SCH (08:15)
--- NOTE | 2019-06-19 08:15 | NUR ---
Called [facility] and spoke with warehouse helper Yessenia. She said their are no tele beds or ICU beds available and that there will not be any available for pt to transfer for a 9 am procedure this morning. It was discussed that we would call Dr. Presley and inform him that the patient will not be able to transfer this morning. Bedside RN aware and will place a call to Dr. Presley. Addendum: 06/19/19 at 1125 by Becky Hernandez RN Above entry entered on the wrong patient.
[2019-06-19] MEDS: BACLOFEN 10 MG TABLET GT SCH ×3 (09:00→20:02)
[2019-06-19] MEDS: CITRIC ACID/SODIUM CITRATE 30 ML UDC GT SCH ×3 (09:00→20:01)
--- NOTE | 2019-06-19 09:09 | NUR ---
JOELLE Pt provided CHG, amparo fragoso provided. Pt tolerated.
[2019-06-19] MEDS ORDERED: HYDROCORTISONE SOD SUCC 100 MG/2 ML VIAL IVP ONE (09:15)
[2019-06-19] MEDS: PANTOPRAZOLE SODIUM 40 MG/VIAL (PROTONIX) IVP SCH (09:58)
[2019-06-19] MEDS: DIPHENOXYLATE HCL/ATROP SULF 2.5 MG TAB PO SCH ×3 (09:58→20:02)
[2019-06-19] MEDS: CEFEPIME 1 GM in D5W 50 ML IV SCH (09:58)
[2019-06-19] MEDS: METOPROLOL TARTRATE 50 MG TABLET GT SCH ×2 (09:59→20:02)
[2019-06-19] MEDS ORDERED: IOHEXOL 0 ML IV ONE (10:58)
--- NOTE | 2019-06-19 11:02 | NUR ---
OFF UNIT Pt was taken to OR with operation room staff during transport. RT assisting pt to OR. Pt connected to transport monitor.
[2019-06-19] MEDS ORDERED: LR 1,000 ML IV SCH (11:51)
[2019-06-19] MEDS: NYSTATIN 15 GM TOPICAL POWDER TP SCH (11:56)
[2019-06-19] MEDS ORDERED: HYDROmorphone 1 MG INJ. 1 MG/ML AMPUL IVP PRN (12:00)
[2019-06-19] MEDS ORDERED: HYDROmorphone 2 MG/ML VIAL IVP PRN ×2 (12:00)
[2019-06-19] MEDS ORDERED: MEPERIDINE HCL/PF 25 MG/ML DISP.SYRIN IVP PRN (12:00)
[2019-06-19] MEDS ORDERED: MIDAZOLAM HCL 5 MG/ML VIAL (VERSED) IV ONE (12:20)
[2019-06-19] MEDS ORDERED: NS IRRIG SOLN 1000 ML IR ONE (12:20)
[2019-06-19] MEDS ORDERED: LR 1,000 ML IV.SOLN IV ONE (12:20)
[2019-06-19] MEDS ORDERED: SEVOFLURANE 15 MIN GAS INH ONE (12:20)
[2019-06-19] MEDS ORDERED: fentaNYL CITRATE/PF 100 MCG/2 ML AMP ONE (12:20)
[2019-06-19] MEDS ORDERED: IOHEXOL 100 ML IV ONE (12:31)
[2019-06-19] MEDS: CHOLECALCIFEROL (VITAMIN D3) 2,000 UNIT TABLET GT SCH (14:03)
[2019-06-19] MEDS: CHOLESTYRAMINE/SUCROSE 4 GM/PACKET GT SCH (14:03)
[2019-06-19] MEDS: FLUDROCORTISONE ACETATE 0.1 MG TABLET( FLORINEF) GT SCH (14:03)
[2019-06-19] MEDS: PARoxetine HCL 20 MG TABLET GT SCH ×2 (14:03→20:02)
[2019-06-19] MEDS: FOLIC ACID 1 MG TABLET GT SCH (14:03)
[2019-06-19] MEDS: ENOXAPARIN SODIUM 40 MG/0.4 ML SYRINGE SUBCUT SCH (14:04)
--- NOTE | 2019-06-19 14:32 | NUR ---
Commercial Account Officer: STRAIGHTENING MACHINE FEEDER wanted to check in with parent. STRAIGHTENING MACHINE FEEDER was in the ICU doing an DCPA on another pt. One of the Rn's stated Pt Serjio was currently in surgery. STRAIGHTENING MACHINE FEEDER went to the Surgical waiting room and met with pts. mom. STRAIGHTENING MACHINE FEEDER asked how she was doing and Mrs. Bassett signed saying her son is not doing well. She stated he is so swollen and DrsTisha don't know why he is swelling so badly. Mrs. Bassett almost began crying when she spoke of her stating, "He never cries. He saw Warner and starting crying" . STRAIGHTENING MACHINE FEEDER left because the surgeon came in to go over the surgery. STRAIGHTENING MACHINE FEEDER said goodby. STRAIGHTENING MACHINE FEEDER will remain available as needed.
[2019-06-19] MEDS ORDERED: HEPARIN SODIUM,PORCINE 5000 UNITS/ML VIAL ONE (16:59)
[2019-06-19] MEDS: LORazepam 2 MG/ML VIAL IM PRN (17:14)
--- NOTE | 2019-06-19 17:25 | NUR ---
DIALYSIS PERFORMED 1 UNIT BLOOD GIVEN
[2019-06-19 17:30] LABS: ASPERGILLUS FLAVUS Negative (Neg:<1:1); ASPERGILLUS FUMIGATUS Negative (Neg:<1:1)
[2019-06-19] MEDS ORDERED: DEXTROSE 50% JECT 50 ML DISP.SYRIN IVP PRN (17:30)
[2019-06-19] MEDS ORDERED: HEPARIN SODIUM, PORCINE 10,000 UNITS/ 10 ML VIAL ONE (17:33)
[2019-06-19] MEDS: INSULIN LISPRO SLIDING SCALE 100 UNITS/ML VIAL (humaLOG) SUBCUT PRN ×2 (18:37→23:07)
--- NOTE | 2019-06-19 19:20 | NUR ---
Closing Notes Pt endorsed to night RN using SBAR.
--- NOTE | 2019-06-19 19:20 | NUR ---
PM ASSESSMENT Pt in bed with eyes closed resting comfortably. No signs of acute distress or discomfort noted. Anasarca noted. Pt is trach to vent: vent settings AC 12, TV 320, FiO2 35% and PEEP of 5. Pt tolerating vent settings well with O2 sats @ 97% and even and unlabored breathing. R IJ dialysis cath with one lumen noted infusing lasix drip @ 5 cc/hr. Gtube noted infusing tubefeeding. Lema cath noted draining urine to gravity. Flexiseal noted draining loose stool. Bed is locked and in lowest position, call light within reach, will cont to monitor pt.
[2019-06-19] MEDS: HYDROCORTISONE 1%, 28.35 GM TOPICAL CREAM TP SCH (20:03)
[2019-06-19] MEDS: LATANOPROST 2.5 ML DROPS (XALATAN) OP SCH (20:03)
[2019-06-19] MEDS: EMOLLIENT COMBINATION NO.73 78 GM CREAM..G. TP SCH (20:03)
[2019-06-19] MEDS: MORPHINE 2 MG/ML INJ. SYRINGE IVP PRN (20:57)
--- NOTE | 2019-06-19 21:30 | NUR ---
Pt's father at bedside. All questions answered. No signs of acute distress or discomfort noted. Will cont to monitor pt.
[2019-06-20] VITALS (34 sets, daily range): BP systolic 101–197
[2019-06-20] MEDS: hydrALAZINE HCL 20 MG/ML VIAL IVP PRN ×2 (01:08→14:41)
[2019-06-20] MEDS: LevALBUTEROL HCL 1.25 MG/0.5 ML *CONC.* VIAL.NEB (XOPENEX CONC.) INH SCH ×4 (01:45→19:15)
[2019-06-20] MEDS: IPRATROPIUM BROM 0.5 MG/2.5 ML VIAL.NEB (ATROVENT) INH SCH ×4 (01:45→19:15)
--- NOTE | 2019-06-20 02:10 | NUR ---
Pt's francisco's cleaned and replaced and pt repositioned at this time. Noticed bleeding from the R IJ surgical site. Surgical site cleaned, pressure dressing applied and trach care performed with the help of RT. Will cont to monitor pt.
[2019-06-20] MEDS: cloNIDine HCL 0.1 MG TABLET GT PRN ×2 (02:43→05:06)
--- NOTE | 2019-06-20 04:20 | NUR ---
Pt in bed asleep. No s/s of distress noted. Tolerating vent settings well. Pt remains edematous. BP elevated at this time, but trending down. PRN BP medication has been given. Pt repositioned at this time. Pt tolerated well. Bed is locked and in lowest position, call light within reach, will cont to monitor pt. Will continue to monitor.
[2019-06-20] MEDS: HYDROCORTISONE SOD SUCC 100 MG/2 ML VIAL IVP SCH ×2 (05:05→18:15)
[2019-06-20] MEDS: LEVOTHYROXINE SODIUM 0.025 MG TABLET GT SCH (05:05)
[2019-06-20] MEDS: DILTIAZEM HCL 90 MG TABLET GT SCH ×3 (05:06→18:15)
[2019-06-20 07:06] LABS: HEPATITIS A AB, IgM Negative (Negative); HEPATITIS B CORE AB, IgM Negative (Negative); HEPATITIS B SURFACE AG Negative (Negative)
--- NOTE | 2019-06-20 07:20 | NUR ---
ENDORSEMENT Report given to oncoming dayshift RN using SBAR format and pt care was endorsed. No signs of acute distress or discomfort noted.
--- NOTE | 2019-06-20 07:30 | NUR ---
AM ASSESSMENT Pt received from night RN using SBAR.
[2019-06-20 07:45] LABS: BASOPHILS % (AUTO) 0.2 % (0.0-2.0); EOSINOPHILS # (AUTO) 0.1 K/uL (0.0-0.4); EOSINOPHILS % (AUTO) 0.4 % (0.0-4.0); HEMATOCRIT 28.1 % (36-54); HEMOGLOBIN 9.1 g/dL (14.0-18.0); LYMPHOCYTES # (AUTO) 1.1 K/uL (1.0-5.5); LYMPHOCYTES % (AUTO) 6.2 % (20.5-51.5); MEAN CORPUSCULAR HEMOGLOBIN 29 pg (27-31); MEAN CORPUSCULAR HGB CONC 32 % (32-36); MEAN CORPUSCULAR VOLUME 90 fL (79.0-98.0); MONOCYTES # (AUTO) 1.4 K/uL (0.0-1.0); MONOCYTES % (AUTO) 7.5 % (1.7-9.3); NEUTROPHILS # (AUTO) 15.9 K/uL (1.8-7.7); PLATELET COUNT (AUTO) 237 K/uL (130-430); RED BLOOD CELL COUNT(AUTO) 3.12 MIL/uL (4.2-6.2); RED CELL DISTRIBUTION WIDTH 19.1 % (9.0-15.0); WHITE BLOOD COUNT (AUTO) 18.6 K/uL (4.8-10.8)
[2019-06-20 08:57] LABS: ALBUMIN 2.4 g/dL (3.4-4.8); CALCIUM 8.6 mg/dL (8.4-11.0); CREATININE 2.26 mg/dL (0.55-1.30); PHOSPHORUS 5.2 mg/dL (2.7-4.5); POTASSIUM 3.8 mmol/L (3.5-5.1); TOTAL BILIRUBIN 0.2 mg/dL (0.0-1.0)
[2019-06-20] MEDS: CHOLESTYRAMINE/SUCROSE 4 GM/PACKET GT SCH (08:59)
[2019-06-20] MEDS: CHOLECALCIFEROL (VITAMIN D3) 2,000 UNIT TABLET GT SCH (09:00)
[2019-06-20] MEDS: ENOXAPARIN SODIUM 40 MG/0.4 ML SYRINGE SUBCUT SCH (09:00)
[2019-06-20] MEDS: FOLIC ACID 1 MG TABLET GT SCH (09:00)
[2019-06-20] MEDS: PARoxetine HCL 20 MG TABLET GT SCH ×2 (09:00→21:05)
[2019-06-20] MEDS: PANTOPRAZOLE SODIUM 40 MG/VIAL (PROTONIX) IVP SCH (09:00)
[2019-06-20] MEDS: BACLOFEN 10 MG TABLET GT SCH ×3 (09:00→21:05)
--- NOTE | 2019-06-20 09:00 | NUR ---
Dialysis Dialysis nurse bedside with pt starting Dialysis.
[2019-06-20] MEDS: FLUDROCORTISONE ACETATE 0.1 MG TABLET( FLORINEF) GT SCH (09:01)
[2019-06-20] MEDS: DIPHENOXYLATE HCL/ATROP SULF 2.5 MG TAB PO SCH (09:02)
[2019-06-20 09:31] LABS: NEUTROPHILS % (AUTO) 85.7 % (40.0-70.0)
[2019-06-20] MEDS: VALPROIC ACID ORAL SYRUP 250 MG/5 ML UDC GT SCH ×3 (11:55→21:04)
[2019-06-20] MEDS: MORPHINE 2 MG/ML INJ. SYRINGE IVP PRN ×3 (11:57→21:22)
[2019-06-20] MEDS: CITRIC ACID/SODIUM CITRATE 30 ML UDC GT SCH ×3 (11:58→21:05)
[2019-06-20] MEDS: NYSTATIN 15 GM TOPICAL POWDER TP SCH (12:13)
[2019-06-20] MEDS: METOPROLOL TARTRATE 50 MG TABLET GT SCH ×2 (12:13→21:05)
[2019-06-20] MEDS: INSULIN LISPRO SLIDING SCALE 100 UNITS/ML VIAL (humaLOG) SUBCUT PRN (12:26)
--- NOTE | 2019-06-20 12:40 | NUR ---
CHG Pt provided CHG, total linen change. Pt tolerated well.
--- NOTE | 2019-06-20 13:06 | NUR ---
Paged Dr. Benitez pagedinora to notify of dialysis cath bleeding.
[2019-06-20 13:20] LABS: IMMUNOGLOBULIN E,TOTAL 641 IU/mL (6-495)
[2019-06-20] MEDS ORDERED: LIDOCAINE/EPI 1% 1:100000 20 ML VIAL INJ ONE (13:45)
[2019-06-20] MEDS: FUROSEMIDE 100 MG in D5W 90 ML IV SCH (15:41)
--- NOTE | 2019-06-20 17:11 | NUR ---
Nutrition F/U RD reviewed pt's current EMR including diet Hx, physician notes, nursing notes, pertinent labs/meds/procedures, care trends and care activity. Current Nutrition Support: Vital AF 1.2 at 45ml/hr, Banatrol BID, Free Water Flush: no free H2O for now x0 days Provides: 1296 kcal/day, 81 gm protein/day, and 876 ml free water/day Meets: 88% of lower end of estimated caloric needs and 213% of estimated protein needs Subjective information: Pt is POD 5 s/p tracheostomy 06/15/19 and POD 1 s/p placement of dialysis catheter 06/19/19. Pt was seen resting in bed, eyes open, visually swollen to face, and mother at bedside. TF infusing Vital AF 1.2 at 45 ml/hr, w/ 346 ml infused. RN reported that pt has been tolerating TF well; consistent w/ documented TF records; low residuals noted today. RD spoke w/ Dr. Peterson in [facility] nursing station regarding RD rec to switch pt to Nepro TF formula -- physician was agreeable. RD to implement new TF order per MD. Labs: A1c 8.3H, (06/18/19) BUN 60 H, Cr: 2.26 H, eGFR 37 L, POC 194 H, 105 H Estimated Energy Expenditure (kcals/day) 3115-7567 kcal/day (25-30kcal/kg CBW for critical illness) Estimated Protein Required (g/day) 38 gm/day (0.8gm/kg CBW for ARF) Estimated Fluid Required (l/day) Deferred to MD d/t ARF Problem/Etiology/Signs/Symptoms Altered GI function r/t medication AEB flagyl and reports of diarrhea per nursing staff *ongoing* Altered nutrition related lab values related to renal dysfunction as evidenced by BUN: 76H, Cr: 2.10H, eGFR 49L *ongoing* Expected Outcomes/Goals Monitor EN support and intake w/ goal of pt meeting at least 75% of estimated nutritional needs, labs trending WNL, normal GI function, skin integrity/wt maintenance. Dietitian Recommendations * Recommend Nepro at 30 ml/hr via GT Provides: 1296 kcal/day, 58 gm protein/day, and 523 ml free water/day Meets: 108% of lower end of estimated caloric needs and 153% of upper end of estimated protein needs Follow Up High Risk: F/U in 2-3 days Addendum: 06/20/19 at [address] RN stated that pt continues w/ diarrhea and rectal tube. Dietitian Recommendations * Recommend Nepro at 30 ml/hr, Banatrol BID via GT Provides: 1296 kcal/day, 58 gm protein/day, and 523 ml free water/day Meets: 108% of lower end of estimated caloric needs and 153% of upper end of estimated protein needs LP, RD
--- NOTE | 2019-06-20 17:16 | NUR ---
Dietitian Recommendations * Recommend Nepro at 30 ml/hr via GT Provides: 1296 kcal/day, 58 gm protein/day, and 523 ml free water/day Meets: 108% of lower end of estimated caloric needs and 153% of upper end of estimated protein needs LP, RD Please refer to Nutrition F/U for details. Addendum: 06/20/19 at [address] CORRECTION: Dietitian Recommendations * Recommend Nepro at 30 ml/hr, Banatrol BID via GT Provides: 1296 kcal/day, 58 gm protein/day, and 523 ml free water/day Meets: 108% of lower end of estimated caloric needs and 153% of upper end of estimated protein needs LP, RD
--- NOTE | 2019-06-20 19:15 | NUR ---
OPENING NOTE SBAR REPORT RECEIVED FROM FAHAD KIM AND NANCY KIM. CARE ASSUMED. PT LAYING IN BED. PT ANOX1. PT HAS PORTEX 7.0 TRACHEOSTOMY WITH MECH VENT IN PLACE. VENT SETTINGS AC 12, TV 320, FiO2 35%, PEEP 5. PT TOLERATING SETTINGS WELL. PT HAS DIALYSIS CATHETER WITH PIGTAIL IN RIGHT IJ RUNNING LASIX DRIP @ 5ML/HR. PT HAS ANASARCA WITH 1+ PITTING EDEMA TO BILATERAL HANDS AND FEET, SWELLING TO SCROTUM AND SEVERE SWELLING TO LIPS AND FACE. UNABLE TO ASSESS JVD. PT HAS G-TUBE IN PLACE RUNNING NEPRO 1.8 @ 30 CC/HR. 10 CC RESIDUAL. BOWEL SOUNDS ACTIVE. PT HAS MENDOZA CATHETER IN PLACE FLOWING TO GRAVITY. URINE YELLOW AND CLEAR. PT HAS FLEXI-SEAL IN PLACE. LIQUID GREENISH BROWN STOOL PRESENT IN BAG AND TUBE. PT SKIN INTACT. BED LOCKED IN LOWEST POSITION. SAFETY PRECAUTIONS IN PLACE. CALL LIGHT WITHIN REACH. WILL CONTINUE TO MONITOR.
[2019-06-20] MEDS: MEROPENEM 500 MG IVPB PREMIX 50 ML IV SCH (21:04)
[2019-06-20] MEDS: LATANOPROST 2.5 ML DROPS (XALATAN) OP SCH (21:06)
[2019-06-20] MEDS: EMOLLIENT COMBINATION NO.73 78 GM CREAM..G. TP SCH (21:06)
[2019-06-20] MEDS: HYDROCORTISONE 1%, 28.35 GM TOPICAL CREAM TP SCH (21:06)
[2019-06-21] VITALS (32 sets, daily range): BP systolic 101–181
[2019-06-21] MEDS: DILTIAZEM HCL 90 MG TABLET GT SCH ×5 (00:21→23:44)
[2019-06-21] MEDS: LevALBUTEROL HCL 1.25 MG/0.5 ML *CONC.* VIAL.NEB (XOPENEX CONC.) INH SCH ×4 (00:50→19:25)
[2019-06-21] MEDS: IPRATROPIUM BROM 0.5 MG/2.5 ML VIAL.NEB (ATROVENT) INH SCH ×4 (00:50→19:25)
[2019-06-21] MEDS: HYDROCORTISONE SOD SUCC 100 MG/2 ML VIAL IVP SCH ×2 (05:42→17:41)
[2019-06-21] MEDS: cloNIDine HCL 0.1 MG TABLET GT PRN (05:43)
[2019-06-21] MEDS: LEVOTHYROXINE SODIUM 0.025 MG TABLET GT SCH (05:43)
[2019-06-21] MEDS: MORPHINE 2 MG/ML INJ. SYRINGE IVP PRN ×2 (05:44→18:02)
[2019-06-21 06:05] LABS: BASOPHILS % (AUTO) 0.3 % (0.0-2.0); EOSINOPHILS # (AUTO) 0.3 K/uL (0.0-0.4); EOSINOPHILS % (AUTO) 1.8 % (0.0-4.0); HEMATOCRIT 22.9 % (36-54); HEMOGLOBIN 7.5 g/dL (14.0-18.0); LYMPHOCYTES # (AUTO) 2.4 K/uL (1.0-5.5); LYMPHOCYTES % (AUTO) 15.3 % (20.5-51.5); MEAN CORPUSCULAR HEMOGLOBIN 30 pg (27-31); MEAN CORPUSCULAR HGB CONC 33 % (32-36); MEAN CORPUSCULAR VOLUME 90 fL (79.0-98.0); MONOCYTES # (AUTO) 1.3 K/uL (0.0-1.0); MONOCYTES % (AUTO) 8.1 % (1.7-9.3); NEUTROPHILS # (AUTO) 11.8 K/uL (1.8-7.7); NEUTROPHILS % (AUTO) 74.5 % (40.0-70.0); PLATELET COUNT (AUTO) 230 K/uL (130-430); RED BLOOD CELL COUNT(AUTO) 2.53 MIL/uL (4.2-6.2); RED CELL DISTRIBUTION WIDTH 18.7 % (9.0-15.0); WHITE BLOOD COUNT (AUTO) 15.9 K/uL (4.8-10.8)
[2019-06-21 06:57] LABS: ALBUMIN 2.1 g/dL (3.4-4.8); CALCIUM 8.3 mg/dL (8.4-11.0); CREATININE 2.36 mg/dL (0.55-1.30); POTASSIUM 3.4 mmol/L (3.5-5.1); TOTAL BILIRUBIN 0.2 mg/dL (0.0-1.0)
--- NOTE | 2019-06-21 07:30 | NUR ---
Hemodialysis Dialysis nurse at beside, starting dialysis with pt.
[2019-06-21] MEDS: CHOLESTYRAMINE/SUCROSE 4 GM/PACKET GT SCH (09:44)
[2019-06-21] MEDS: VALPROIC ACID ORAL SYRUP 250 MG/5 ML UDC GT SCH ×3 (09:44→21:07)
[2019-06-21] MEDS: PANTOPRAZOLE SODIUM 40 MG/VIAL (PROTONIX) IVP SCH (09:44)
[2019-06-21] MEDS: CHOLECALCIFEROL (VITAMIN D3) 2,000 UNIT TABLET GT SCH (09:45)
[2019-06-21] MEDS: FOLIC ACID 1 MG TABLET GT SCH (09:45)
[2019-06-21] MEDS: PARoxetine HCL 20 MG TABLET GT SCH ×2 (09:45→21:07)
[2019-06-21] MEDS: CITRIC ACID/SODIUM CITRATE 30 ML UDC GT SCH ×3 (09:45→21:07)
[2019-06-21] MEDS: FLUDROCORTISONE ACETATE 0.1 MG TABLET( FLORINEF) GT SCH (09:45)
[2019-06-21] MEDS: BACLOFEN 10 MG TABLET GT SCH ×3 (09:45→21:08)
[2019-06-21] MEDS: NYSTATIN 15 GM TOPICAL POWDER TP SCH (09:46)
[2019-06-21] MEDS ORDERED: HEPARIN SODIUM,PORCINE 5000 UNITS/ML VIAL ONE (10:41)
--- NOTE | 2019-06-21 10:42 | NUR ---
Family Pt's mother is at bedside with pt.
[2019-06-21] MEDS: FUROSEMIDE 100 MG in D5W 90 ML IV SCH (11:26)
[2019-06-21] MEDS: ENOXAPARIN SODIUM 40 MG/0.4 ML SYRINGE SUBCUT SCH (11:28)
[2019-06-21] MEDS: METOPROLOL TARTRATE 50 MG TABLET GT SCH ×2 (11:29→21:08)
[2019-06-21] MEDS: MEROPENEM 500 MG IVPB PREMIX 50 ML IV SCH ×2 (11:33→21:06)
[2019-06-21] MEDS: INSULIN LISPRO SLIDING SCALE 100 UNITS/ML VIAL (humaLOG) SUBCUT PRN ×2 (12:14→23:48)
--- NOTE | 2019-06-21 14:40 | NUR ---
CHG Pt provided CHG with new linen change. Pt tolerated well. Will continue to monitor.
--- NOTE | 2019-06-21 19:15 | NUR ---
PM SHIFT ASSESSMENT Pt is awake. O2 via TRACH to VENT, tolerating current vent settings. SR on monitor. IV intact, no signs of infiltration. Gtube feeding infusing. Safety precautions in place, call light within reach. Will continue to monitor.
--- NOTE | 2019-06-21 19:25 | NUR ---
Closing Notes Pt endorsed to night RN using SBAR
[2019-06-21] MEDS: LATANOPROST 2.5 ML DROPS (XALATAN) OP SCH (21:09)
[2019-06-21] MEDS: EMOLLIENT COMBINATION NO.73 78 GM CREAM..G. TP SCH (21:10)
[2019-06-21] MEDS: HYDROCORTISONE 1%, 28.35 GM TOPICAL CREAM TP SCH (21:10)
[2019-06-22] VITALS (34 sets, daily range): BP systolic 92–145
[2019-06-22] MEDS: IPRATROPIUM BROM 0.5 MG/2.5 ML VIAL.NEB (ATROVENT) INH SCH ×4 (00:30→19:30)
[2019-06-22] MEDS: LevALBUTEROL HCL 1.25 MG/0.5 ML *CONC.* VIAL.NEB (XOPENEX CONC.) INH SCH ×4 (00:30→19:30)
[2019-06-22] MEDS: HYDROCORTISONE SOD SUCC 100 MG/2 ML VIAL IVP SCH ×2 (05:52→18:01)
[2019-06-22] MEDS: DILTIAZEM HCL 90 MG TABLET GT SCH ×3 (05:53→18:00)
[2019-06-22] MEDS: LEVOTHYROXINE SODIUM 0.025 MG TABLET GT SCH (05:54)
[2019-06-22 06:29] LABS: BASOPHILS % (AUTO) 0.2 % (0.0-2.0); EOSINOPHILS # (AUTO) 0.3 K/uL (0.0-0.4); EOSINOPHILS % (AUTO) 1.8 % (0.0-4.0); LYMPHOCYTES # (AUTO) 2.5 K/uL (1.0-5.5); LYMPHOCYTES % (AUTO) 15.8 % (20.5-51.5); MEAN CORPUSCULAR HEMOGLOBIN 29 pg (27-31); MEAN CORPUSCULAR HGB CONC 33 % (32-36); MEAN CORPUSCULAR VOLUME 90 fL (79.0-98.0); MONOCYTES # (AUTO) 1.1 K/uL (0.0-1.0); MONOCYTES % (AUTO) 6.8 % (1.7-9.3); NEUTROPHILS # (AUTO) 12.1 K/uL (1.8-7.7); NEUTROPHILS % (AUTO) 75.4 % (40.0-70.0); PLATELET COUNT (AUTO) 231 K/uL (130-430); RED BLOOD CELL COUNT(AUTO) 2.31 MIL/uL (4.2-6.2); RED CELL DISTRIBUTION WIDTH 18.9 % (9.0-15.0); WHITE BLOOD COUNT (AUTO) 16.1 K/uL (4.8-10.8)
[2019-06-22 06:40] LABS: CALCIUM 8.3 mg/dL (8.4-11.0); CREATININE 2.22 mg/dL (0.55-1.30)
[2019-06-22 06:59] LABS: HEMATOCRIT 20.8 % (36-54); HEMOGLOBIN 6.8 g/dL (14.0-18.0)
--- NOTE | 2019-06-22 07:15 | NUR ---
AT 0713 A.M, RECEIVED NURSING REPORT FROM HOGSHEAD HEAD MATCHER MARIANA Lyon
--- NOTE | 2019-06-22 07:15 | NUR ---
ENDORSEMENT Pt care endorsed to JUDY Overton using nursing SBAR.
--- NOTE | 2019-06-22 07:50 | NUR ---
AT 0745 A.M, SEE PATIENT
--- NOTE | 2019-06-22 08:30 | NUR ---
SEE PATIENT, ORDERED DISCONTINUE LASIX DRIP , GIVE K-RIDER 40 MEQ IVPB X ONCE, FOR POTASSIUM 3.0
--- NOTE | 2019-06-22 08:30 | NUR ---
SEE PATIENT, ORDERED INSERT MENDOZA CATHETER AND FOLLOW UP CBC, CMP IN A.M Addendum: 06/22/19 at 1104 by Kg Lea RN WRONG PATIENT CHARTING
--- NOTE | 2019-06-22 09:20 | NUR ---
AT 0900 A.M, SEE PATIENT AND ON THORACENTESIS IN LEFT SIDE BACK, AT BEDSIDE DRAIN OUT YELLOW CLEAT PLEURAL FLUID 1500 ML, FINISHED PROCEDURE AT 0920 A.M, ORDERED FOLLOW UP STAT CHEST X-RAY Addendum: 06/22/19 at 1103 by Kg Lea RN WRONG PATIENT CHARTING
--- NOTE | 2019-06-22 09:30 | NUR ---
SEE PATIENT, ORDERED FOLLOW UP CHEST X-RAY, CBC, CMP IN A.M
--- NOTE | 2019-06-22 09:45 | NUR ---
SEE PATIENT, ORDERED DISCONTINUE LOVENOX
[2019-06-22] MEDS: CHOLESTYRAMINE/SUCROSE 4 GM/PACKET GT SCH (09:51)
[2019-06-22] MEDS: CITRIC ACID/SODIUM CITRATE 30 ML UDC GT SCH ×3 (09:51→20:51)
[2019-06-22] MEDS: METOPROLOL TARTRATE 50 MG TABLET GT SCH ×2 (09:56→20:55)
[2019-06-22] MEDS: MEROPENEM 500 MG IVPB PREMIX 50 ML IV SCH ×2 (09:58→20:55)
[2019-06-22] MEDS: PARoxetine HCL 20 MG TABLET GT SCH ×2 (10:00→20:52)
[2019-06-22] MEDS: FOLIC ACID 1 MG TABLET GT SCH (10:00)
[2019-06-22] MEDS: PANTOPRAZOLE SODIUM 40 MG/VIAL (PROTONIX) IVP SCH (10:00)
[2019-06-22] MEDS: FLUDROCORTISONE ACETATE 0.1 MG TABLET( FLORINEF) GT SCH (10:00)
[2019-06-22] MEDS: CHOLECALCIFEROL (VITAMIN D3) 2,000 UNIT TABLET GT SCH (10:01)
[2019-06-22] MEDS: NYSTATIN 15 GM TOPICAL POWDER TP SCH (10:01)
[2019-06-22] MEDS: BACLOFEN 10 MG TABLET GT SCH ×3 (10:01→20:52)
[2019-06-22] MEDS: VALPROIC ACID ORAL SYRUP 250 MG/5 ML UDC GT SCH ×3 (10:01→20:51)
[2019-06-22] MEDS: KCL 20 mEq in 100 mL (PREMIX) 100 ML IV SCH ×2 (10:03→12:23)
[2019-06-22] MEDS: cloNIDine HCL 0.3 MG/24 HR PATCH.TDWK TD SCH (10:04)
--- NOTE | 2019-06-22 10:45 | NUR ---
DR. OSCAR HUITRON SEE PATIENT Addendum: 06/22/19 at 1057 by Kg Lea RN WRONG PATIENT CHARTING
[2019-06-22] MEDS: INSULIN LISPRO SLIDING SCALE 100 UNITS/ML VIAL (humaLOG) SUBCUT PRN ×2 (12:07→18:02)
[2019-06-22] MEDS ORDERED: INSULIN GLARGINE 100 UNITS/ML 10 ML VIAL SUBCUT SCH (12:30)
--- NOTE | 2019-06-22 12:30 | NUR ---
SEE PATIENT , ORDERED START [facility]ERAP[facility]
[2019-06-22] MEDS: MORPHINE 2 MG/ML INJ. SYRINGE IVP PRN (13:26)
--- NOTE | 2019-06-22 15:30 | NUR ---
G-T CARE DONE, CHANGE NEW DRESSING
--- NOTE | 2019-06-22 16:35 | NUR ---
AT 1635 P.M, START HEMODIALYSIS AT BEDSIDE, ORDERED WILL GIVE P-RBC 2 UNITS DURING THE DIALYSIS
--- NOTE | 2019-06-22 17:00 | NUR ---
SEE PATIENT AND CALL PATIENT,S MOM DWAYNE FOR UPDATE PATIENT,S CONDITION
--- NOTE | 2019-06-22 18:00 | NUR ---
FINISHED THE BLOOD TRANSFUSION P-RBC 2 UNITS DURING THE HEMODIALYSIS, NO S/S OF ADVERSE REACTION
--- NOTE | 2019-06-22 19:10 | NUR ---
GIVE COMPLETE NURSING REPORT TO PROGRAM COORDINATOR FOR [employer] KEI Lyon
--- NOTE | 2019-06-22 19:55 | NUR ---
PM initial note Received patient after report from day shift nurse. Patient resting in bed with both eyes opened and finishing hemodialysis after 3000 ml were removed as per HD nurse. Mechanical ventilation via trach with settings AC 12 tv 320 FIO2 35% and peep 5+. tolerating settings well. flexiseal in place draining watery stool, laureano catheter in place and draining urine per gravity. Tube feeding with nepro at 30 cc/h and tolerating well without residuals. family at bedside. will continue to monitor per unit protocol. call light within reach and bed at lowest settings.
[2019-06-22] MEDS: LATANOPROST 2.5 ML DROPS (XALATAN) OP SCH (20:56)
[2019-06-22] MEDS: HYDROCORTISONE 1%, 28.35 GM TOPICAL CREAM TP SCH (20:59)
[2019-06-22] MEDS: EMOLLIENT COMBINATION NO.73 78 GM CREAM..G. TP SCH (20:59)
[2019-06-22] MEDS: INSULIN GLARGINE 100 UNITS/ML 10 ML VIAL SUBCUT SCH (21:11)
[2019-06-23] VITALS (34 sets, daily range): BP systolic 94–166
[2019-06-23] MEDS: INSULIN LISPRO SLIDING SCALE 100 UNITS/ML VIAL (humaLOG) SUBCUT PRN ×4 (00:12→17:35)
[2019-06-23] MEDS: DILTIAZEM HCL 90 MG TABLET GT SCH ×4 (00:19→17:30)
[2019-06-23] MEDS: LevALBUTEROL HCL 1.25 MG/0.5 ML *CONC.* VIAL.NEB (XOPENEX CONC.) INH SCH ×4 (00:50→19:55)
[2019-06-23] MEDS: IPRATROPIUM BROM 0.5 MG/2.5 ML VIAL.NEB (ATROVENT) INH SCH ×4 (00:50→19:55)
[2019-06-23] MEDS: LEVOTHYROXINE SODIUM 0.025 MG TABLET GT SCH (05:58)
[2019-06-23] MEDS: HYDROCORTISONE SOD SUCC 100 MG/2 ML VIAL IVP SCH ×2 (05:58→17:30)
[2019-06-23 06:04] LABS: BASOPHILS % (AUTO) 0.3 % (0.0-2.0); EOSINOPHILS # (AUTO) 0.1 K/uL (0.0-0.4); EOSINOPHILS % (AUTO) 0.8 % (0.0-4.0); HEMATOCRIT 32.9 % (36-54); HEMOGLOBIN 11.1 g/dL (14.0-18.0); LYMPHOCYTES # (AUTO) 1.8 K/uL (1.0-5.5); MEAN CORPUSCULAR HEMOGLOBIN 30 pg (27-31); MEAN CORPUSCULAR HGB CONC 34 % (32-36); MEAN CORPUSCULAR VOLUME 88 fL (79.0-98.0); MONOCYTES # (AUTO) 1.1 K/uL (0.0-1.0); MONOCYTES % (AUTO) 7.6 % (1.7-9.3); NEUTROPHILS % (AUTO) 79.3 % (40.0-70.0); PLATELET COUNT (AUTO) 218 K/uL (130-430); RED BLOOD CELL COUNT(AUTO) 3.75 MIL/uL (4.2-6.2); RED CELL DISTRIBUTION WIDTH 15.9 % (9.0-15.0); WHITE BLOOD COUNT (AUTO) 15.2 K/uL (4.8-10.8)
[2019-06-23 06:47] LABS: ALBUMIN 1.8 g/dL (3.4-4.8); CALCIUM 8.1 mg/dL (8.4-11.0); POTASSIUM 3.1 mmol/L (3.5-5.1); TOTAL BILIRUBIN 0.2 mg/dL (0.0-1.0)
--- NOTE | 2019-06-23 07:13 | NUR ---
RECEIVED NURSING REPORT FROM CHALK TESTER KEI Lyon
[2019-06-23] MEDS: MEROPENEM 500 MG IVPB PREMIX 50 ML IV SCH ×2 (08:26→21:16)
[2019-06-23] MEDS: MORPHINE 2 MG/ML INJ. SYRINGE IVP PRN ×2 (08:30→15:51)
[2019-06-23] MEDS: CITRIC ACID/SODIUM CITRATE 30 ML UDC GT SCH ×3 (08:31→21:15)
[2019-06-23] MEDS: VALPROIC ACID ORAL SYRUP 250 MG/5 ML UDC GT SCH ×3 (08:31→21:14)
[2019-06-23] MEDS: PANTOPRAZOLE SODIUM 40 MG/VIAL (PROTONIX) IVP SCH (08:31)
[2019-06-23] MEDS: LORazepam 2 MG/ML VIAL IV PRN ×2 (08:31→15:52)
[2019-06-23] MEDS: CHOLESTYRAMINE/SUCROSE 4 GM/PACKET GT SCH (08:31)
[2019-06-23] MEDS: CHOLECALCIFEROL (VITAMIN D3) 2,000 UNIT TABLET GT SCH (08:32)
[2019-06-23] MEDS: BACLOFEN 10 MG TABLET GT SCH ×3 (08:32→21:14)
[2019-06-23] MEDS: FOLIC ACID 1 MG TABLET GT SCH (08:32)
[2019-06-23] MEDS: FLUDROCORTISONE ACETATE 0.1 MG TABLET( FLORINEF) GT SCH (08:32)
[2019-06-23] MEDS: PARoxetine HCL 20 MG TABLET GT SCH ×2 (08:33→21:14)
[2019-06-23] MEDS: METOPROLOL TARTRATE 50 MG TABLET GT SCH ×2 (08:34→21:15)
[2019-06-23] MEDS: NYSTATIN 15 GM TOPICAL POWDER TP SCH (08:36)
--- NOTE | 2019-06-23 09:22 | NUR ---
REPORTED TO REGARDING OF ABNORMAL LAB RESULT : POTASSIUM 3.1
--- NOTE | 2019-06-23 10:30 | NUR ---
RT NOTES- SIMV 10 PLACED PT ON SIMV 10, PS 10, PEEP5 AT THIS TIME. NO DISTRESS NOTED AT THIS TIME. JUDY BARILLAS MADE AWARE. WILL CONTINUE MONITORING.
--- NOTE | 2019-06-23 10:30 | NUR ---
SEE PATIENT, ORDERED START VENTILATOR WEANING : SIMV 10, P.S 10, PEEP 5, FIO2 35%, TV 320, AND FOLLOW UP CBC, CMP IN A.M
--- NOTE | 2019-06-23 11:45 | NUR ---
SEE PATIENT AND UPDATED PATIENT,S CONDITION WITH PATIENT,S MON AT BEDSIDE
--- NOTE | 2019-06-23 12:50 | NUR ---
SEE PATIENT AND CHECK TRACHEOSTOMY CONDITION
[2019-06-23] MEDS ORDERED: POTASSIUM CHLORIDE 20 MEQ/PKT PACKET GT ONE (13:15)
--- NOTE | 2019-06-23 13:15 | NUR ---
SEE PATIENT, ORDERED GIVE KCL 40 MEQ VIA G-T X ONCE
--- NOTE | 2019-06-23 14:40 | NUR ---
Nutrition F/U RD reviewed pt's current EMR including diet Hx, physician notes, nursing notes, pertinent labs/meds/procedures, care trends and care activity. Current Nutrition Support: Nepro at 30 ml/hr, Banatrol BID via GT x3 days Provides: 1296 kcal/day, 58 gm protein/day, and 523 ml free water/day Meets: 108% of lower end of estimated caloric needs and 100% of lower end of estimated protein needs Subjective information: Pt is POD 8 s/p tracheostomy 06/15/19 and POD 4 s/p placement of dialysis catheter 06/19/19. Pt was seen resting in bed, eyes open, visually swollen to face, and TF infusing Nepro at 30 ml/hr, w/ 601 ml infused (provides 1082 kcal). RN reported that pt has been tolerating TF well, little residual (5-10 ml so far today). She also reported that pt is receiving Banatrol PRN as per latest physician order. Pt continues w/ rectal tube and diarrhea/rectal tube -- stool output 200 ml 06/23/19 per EMR. Labs: A1c 8.3H (06/18/19), BUN 29 H, CRE 2 H, eGFR 43 L, POC 152 H, WBC 15.2 H Estimated Energy Expenditure (kcals/day) 6826-5136 kcal/day (25-30kcal/kg CBW for critical illness) Estimated Protein Required (g/day) 58-67 gm/day (0.8 gm/kg CBW for ARF, dialysis) Estimated Fluid Required (l/day) Deferred to MD d/t ARF Problem/Etiology/Signs/Symptoms Altered GI function r/t medication AEB flagyl and reports of diarrhea per nursing staff *ongoing* Altered nutrition related lab values related to renal dysfunction as evidenced by abnormal BUN, CRE, and eGFR lab values. *ongoing/modified* Expected Outcomes/Goals Monitor EN support and intake w/ goal of pt meeting at least 75% of estimated nutritional needs, labs trending WNL, normal GI function, skin integrity/wt maintenance. Dietitian Recommendations * Recommend continuing Nepro at 30 ml/hr, Banatrol BID via GT Provides: 1296 kcal/day, 58 gm protein/day, and 523 ml free water/day Meets: 100% of lower end of estimated caloric needs and 108% of lower end of estimated protein needs Follow Up Moderate Risk: F/U in 3-5 days
--- NOTE | 2019-06-23 14:46 | NUR ---
Dietitian Recommendations * Recommend continuing Nepro at 30 ml/hr, Banatrol BID via GT Provides: 1296 kcal/day, 58 gm protein/day, and 523 ml free water/day Meets: 100% of lower end of estimated caloric needs and 108% of lower end of estimated protein needs LP, RD Please refer to Nutrition F/U for details.
--- NOTE | 2019-06-23 17:20 | NUR ---
SEE PATIENT. VERBALIZED : HOSSEIN COLLINS
--- NOTE | 2019-06-23 19:10 | NUR ---
PM ASSESSMENT Pt in bed with eyes closed resting comfortably. No signs of acute distress or discomfort noted. Pt trach to vent with vent settings: SIMV 10, TV 320, FiO2 35%, PEEP of 5, PS 10. Pt tolerating vent settings well with O2 sats @ 98% and even and unlabored breathing. Pt has a R IJ bradley cath single lumen, infusing IVF TKO at this time. Gtube noted infusing tubefeeding, laureano cath noted draining urine to gravity, flexiseal noted draining loose stool. Bed is locked and in lowest position, call light within reach, will cont to monitor pt.
--- NOTE | 2019-06-23 19:10 | NUR ---
GIVE COMPLETE NURSING REPORT TO MEDICAL ADMINISTRATIVE ASSISTANT NORMA Lyon
--- NOTE | 2019-06-23 21:15 | NUR ---
Pt's father at bedside. All questions answered, will cont to monitor pt.
[2019-06-23] MEDS: LATANOPROST 2.5 ML DROPS (XALATAN) OP SCH (21:16)
[2019-06-23] MEDS: HYDROCORTISONE 1%, 28.35 GM TOPICAL CREAM TP SCH (21:16)
[2019-06-23] MEDS: EMOLLIENT COMBINATION NO.73 78 GM CREAM..G. TP SCH (21:16)
[2019-06-23] MEDS: INSULIN GLARGINE 100 UNITS/ML 10 ML VIAL SUBCUT SCH (21:19)
[2019-06-24] VITALS (30 sets, daily range): BP systolic 92–163
[2019-06-24] MEDS: INSULIN LISPRO SLIDING SCALE 100 UNITS/ML VIAL (humaLOG) SUBCUT PRN ×4 (00:10→23:30)
--- NOTE | 2019-06-24 00:10 | NUR ---
Pt in bed with eyes closed resting comfortably, no signs of acute distress or discomfort noted. Pt repositioned at this time. Pt tolerated well, will cont to monitor pt.
[2019-06-24] MEDS: DILTIAZEM HCL 90 MG TABLET GT SCH ×5 (00:12→23:31)
[2019-06-24] MEDS: IPRATROPIUM BROM 0.5 MG/2.5 ML VIAL.NEB (ATROVENT) INH SCH ×4 (01:29→19:40)
[2019-06-24] MEDS: LevALBUTEROL HCL 1.25 MG/0.5 ML *CONC.* VIAL.NEB (XOPENEX CONC.) INH SCH ×4 (01:29→19:40)
--- NOTE | 2019-06-24 03:30 | NUR ---
CHG CHG bath given to pt at this time. Pt tolerated bath well. Bed is locked and in lowest position, call light within reach, will cont to monitor.
[2019-06-24] MEDS: HYDROCORTISONE SOD SUCC 100 MG/2 ML VIAL IVP SCH ×2 (05:13→17:17)
[2019-06-24] MEDS: LEVOTHYROXINE SODIUM 0.025 MG TABLET GT SCH (05:13)
[2019-06-24 06:51] LABS: BASOPHILS # (AUTO) 0.1 K/uL (0.0-0.2); BASOPHILS % (AUTO) 0.4 % (0.0-2.0); EOSINOPHILS % (AUTO) 0.3 % (0.0-4.0); HEMATOCRIT 33.9 % (36-54); HEMOGLOBIN 11.5 g/dL (14.0-18.0); LYMPHOCYTES # (AUTO) 1.2 K/uL (1.0-5.5); MEAN CORPUSCULAR HEMOGLOBIN 30 pg (27-31); MEAN CORPUSCULAR HGB CONC 34 % (32-36); MEAN CORPUSCULAR VOLUME 89 fL (79.0-98.0); MONOCYTES # (AUTO) 1.1 K/uL (0.0-1.0); MONOCYTES % (AUTO) 7.3 % (1.7-9.3); NEUTROPHILS # (AUTO) 12.3 K/uL (1.8-7.7); PLATELET COUNT (AUTO) 270 K/uL (130-430); RED BLOOD CELL COUNT(AUTO) 3.82 MIL/uL (4.2-6.2); RED CELL DISTRIBUTION WIDTH 16.2 % (9.0-15.0); WHITE BLOOD COUNT (AUTO) 14.6 K/uL (4.8-10.8)
--- NOTE | 2019-06-24 07:05 | NUR ---
ENDORSEMENT Report given to oncoming dayshift RN using SBAR format and pt care was endorsed, no signs of acute distress or discomfort noted.
[2019-06-24 07:12] LABS: ALBUMIN 1.7 g/dL (3.4-4.8); CALCIUM 9.1 mg/dL (8.4-11.0); CREATININE 2.76 mg/dL (0.55-1.30); POTASSIUM 3.7 mmol/L (3.5-5.1); TOTAL BILIRUBIN 0.2 mg/dL (0.0-1.0)
--- NOTE | 2019-06-24 07:15 | NUR ---
Opening Note Received bedside report from endorsing RN for continuation of care. Received patient resting in bed, no signs or symptoms of acute distress noted. Bed locked in lowest position and bed alarm on. Fall and safety precautions in place.
[2019-06-24] MEDS: CHOLESTYRAMINE/SUCROSE 4 GM/PACKET GT SCH (08:40)
[2019-06-24] MEDS: MEROPENEM 500 MG IVPB PREMIX 50 ML IV SCH (08:40)
[2019-06-24] MEDS: CITRIC ACID/SODIUM CITRATE 30 ML UDC GT SCH ×3 (08:40→20:24)
[2019-06-24] MEDS: METOPROLOL TARTRATE 50 MG TABLET GT SCH ×2 (08:41→20:26)
[2019-06-24] MEDS: FLUDROCORTISONE ACETATE 0.1 MG TABLET( FLORINEF) GT SCH (08:41)
[2019-06-24] MEDS: PANTOPRAZOLE SODIUM 40 MG/VIAL (PROTONIX) IVP SCH (08:41)
[2019-06-24] MEDS: FOLIC ACID 1 MG TABLET GT SCH (08:41)
[2019-06-24] MEDS: VALPROIC ACID ORAL SYRUP 250 MG/5 ML UDC GT SCH ×3 (08:42→20:26)
[2019-06-24] MEDS: PARoxetine HCL 20 MG TABLET GT SCH ×2 (08:42→20:27)
[2019-06-24] MEDS: BACLOFEN 10 MG TABLET GT SCH ×3 (08:42→20:26)
[2019-06-24] MEDS: CHOLECALCIFEROL (VITAMIN D3) 2,000 UNIT TABLET GT SCH (08:42)
[2019-06-24] MEDS: NYSTATIN 15 GM TOPICAL POWDER TP SCH (08:43)
[2019-06-24] MEDS: MORPHINE 2 MG/ML INJ. SYRINGE IVP PRN (08:45)
--- NOTE | 2019-06-24 09:15 | NUR ---
Dr. Goldberg at bedside examining patient. New orders received.
--- NOTE | 2019-06-24 09:21 | NUR ---
Dr. Lerma at bedside examining patient. New orders received.
--- NOTE | 2019-06-24 10:58 | NUR ---
Dr. Leon at bedside examining patient. New orders received.
[2019-06-24] MEDS: cefTRIAXone 1 GM in D5W 50 ML IV SCH (11:37)
[2019-06-24] MEDS ORDERED: metroNIDAZOLE 500 mg/NS 100 ML IV ONE (13:00)
--- NOTE | 2019-06-24 15:35 | NUR ---
Dr. Glasgow at bedside examining patient. No new orders.
--- NOTE | 2019-06-24 16:03 | NUR ---
Hemodialysis Hemodialysis being performed at bedside by master rigger.
[2019-06-24] MEDS ORDERED: HEPARIN SODIUM,PORCINE 5000 UNITS/ML VIAL ONE (17:30)
--- NOTE | 2019-06-24 19:18 | NUR ---
Endorsement Endorsed bedside report to oncoming RN using SBAR approach for continuation of care.
--- NOTE | 2019-06-24 19:20 | NUR ---
PM ASSESSMENT Pt in bed with eyes closed resting comfortably. No signs of acute distress or discomfort noted. Pt trach to vent with vent settings: SIMV 10, TV 320, FiO2 35%, PEEP of 5, PS 10. Pt tolerating vent settings well with O2 sats @ 99% and even and unlabored breathing. Pt has a R IJ bradley cath single lumen, infusing IVF TKO at this time. Gtube noted infusing tubefeeding, laureano cath noted draining urine to gravity, flexiseal noted draining loose stool. Bed is locked and in lowest position, call light within reach, will cont to monitor pt.
--- NOTE | 2019-06-24 19:40 | NUR ---
RT titrated pt's vent settings from SIMV 10 to SIMV 6. Pt tolerating vent settings well. Will cont to monitor pt.
[2019-06-24] MEDS: INSULIN GLARGINE 100 UNITS/ML 10 ML VIAL SUBCUT SCH (20:22)
[2019-06-24] MEDS: metroNIDAZOLE 500 mg/NS 100 ML IV SCH (20:25)
[2019-06-24] MEDS: LATANOPROST 2.5 ML DROPS (XALATAN) OP SCH (20:27)
[2019-06-24] MEDS: EMOLLIENT COMBINATION NO.73 78 GM CREAM..G. TP SCH (20:27)
[2019-06-24] MEDS: HYDROCORTISONE 1%, 28.35 GM TOPICAL CREAM TP SCH (20:27)
[2019-06-25] VITALS (30 sets, daily range): BP systolic 107–156
[2019-06-25] MEDS: LevALBUTEROL HCL 1.25 MG/0.5 ML *CONC.* VIAL.NEB (XOPENEX CONC.) INH SCH ×4 (01:15→19:58)
[2019-06-25] MEDS: IPRATROPIUM BROM 0.5 MG/2.5 ML VIAL.NEB (ATROVENT) INH SCH ×4 (01:15→19:58)
[2019-06-25] MEDS: HYDROCORTISONE SOD SUCC 100 MG/2 ML VIAL IVP SCH ×2 (05:08→18:27)
[2019-06-25] MEDS: LEVOTHYROXINE SODIUM 0.025 MG TABLET GT SCH (05:09)
[2019-06-25] MEDS: DILTIAZEM HCL 90 MG TABLET GT SCH ×3 (05:10→18:27)
[2019-06-25 05:30] LABS: BASOPHILS # (AUTO) 0.1 K/uL (0.0-0.2); BASOPHILS % (AUTO) 0.6 % (0.0-2.0); EOSINOPHILS # (AUTO) 0.6 K/uL (0.0-0.4); EOSINOPHILS % (AUTO) 4.8 % (0.0-4.0); HEMATOCRIT 33.5 % (36-54); HEMOGLOBIN 11.1 g/dL (14.0-18.0); LYMPHOCYTES # (AUTO) 1.8 K/uL (1.0-5.5); LYMPHOCYTES % (AUTO) 15.3 % (20.5-51.5); MEAN CORPUSCULAR HEMOGLOBIN 30 pg (27-31); MEAN CORPUSCULAR HGB CONC 33 % (32-36); MEAN CORPUSCULAR VOLUME 90 fL (79.0-98.0); MONOCYTES # (AUTO) 0.9 K/uL (0.0-1.0); MONOCYTES % (AUTO) 7.5 % (1.7-9.3); NEUTROPHILS # (AUTO) 8.4 K/uL (1.8-7.7); NEUTROPHILS % (AUTO) 71.8 % (40.0-70.0); PLATELET COUNT (AUTO) 278 K/uL (130-430); RED BLOOD CELL COUNT(AUTO) 3.74 MIL/uL (4.2-6.2); RED CELL DISTRIBUTION WIDTH 16.2 % (9.0-15.0); WHITE BLOOD COUNT (AUTO) 11.7 K/uL (4.8-10.8)
[2019-06-25 05:50] LABS: CALCIUM 8.8 mg/dL (8.4-11.0); CREATININE 2.19 mg/dL (0.55-1.30); POTASSIUM 3.7 mmol/L (3.5-5.1)
--- NOTE | 2019-06-25 07:05 | NUR ---
ENDORSEMENT Report given to oncoming dayshift RN using SBAR format and pt care was endorsed, no signs of acute distress or discomfort noted.
--- NOTE | 2019-06-25 07:50 | NUR ---
AM ASSESSMENT. PT AWAKE, ON VENTILATOR, ORAL CARE DONE, TRACH SITE DRY, TIGIST CATHETER DRY WELL, TURNED PT GENTLY TO HIS SIDE, FLEXI SEAL WITH BROWN LIQUID STOOL, WITH MILD LEAKING AROUND THE RECTAL TUBE, CLEANSED BUTTOCKS WITH SOAPY TOWEL, RINSED AND PAT DRY.
--- NOTE | 2019-06-25 09:10 | NUR ---
FOOD SUPPLEMENT. BANATROL PLUS 1 PACKET ADMINISTERED ORDERED, FLUSHED GTUBE WITH WATER TO PREVENT OCCLUSION, FEEDING CONTINUES AT 30 ML PER HR.
[2019-06-25] MEDS: PANTOPRAZOLE SODIUM 40 MG/VIAL (PROTONIX) IVP SCH (09:31)
[2019-06-25] MEDS: FOLIC ACID 1 MG TABLET GT SCH (09:31)
[2019-06-25] MEDS: CHOLECALCIFEROL (VITAMIN D3) 2,000 UNIT TABLET GT SCH (09:31)
[2019-06-25] MEDS: CHOLESTYRAMINE/SUCROSE 4 GM/PACKET GT SCH (09:31)
[2019-06-25] MEDS: PARoxetine HCL 20 MG TABLET GT SCH ×2 (09:32→21:18)
[2019-06-25] MEDS: BACLOFEN 10 MG TABLET GT SCH ×3 (09:32→21:18)
[2019-06-25] MEDS: FLUDROCORTISONE ACETATE 0.1 MG TABLET( FLORINEF) GT SCH (09:32)
[2019-06-25] MEDS: METOPROLOL TARTRATE 50 MG TABLET GT SCH ×2 (09:32→21:18)
[2019-06-25] MEDS: NYSTATIN 15 GM TOPICAL POWDER TP SCH (09:33)
[2019-06-25] MEDS: VALPROIC ACID ORAL SYRUP 250 MG/5 ML UDC GT SCH ×3 (09:35→21:17)
[2019-06-25] MEDS: CITRIC ACID/SODIUM CITRATE 30 ML UDC GT SCH ×3 (09:35→21:17)
[2019-06-25] MEDS: metroNIDAZOLE 500 mg/NS 100 ML IV SCH ×2 (09:36→21:19)
[2019-06-25] MEDS: cefTRIAXone 1 GM in D5W 50 ML IV SCH (11:31)
[2019-06-25] MEDS: INSULIN LISPRO SLIDING SCALE 100 UNITS/ML VIAL (humaLOG) SUBCUT PRN (11:34)
[2019-06-25] MEDS: MORPHINE 2 MG/ML INJ. SYRINGE IVP PRN (11:38)
--- NOTE | 2019-06-25 11:38 | NUR ---
COMFORT. PT'S MOTHER DWAYNE AT BEDSIDE, PT WIDE AWAKE, FAMILY ASKED FOR MORPHINE FOR PATIENT'S COMFORT AND MIGHT HELP HIM GET SOME REST OR SLEEP, MORPHINE 2 MG IVP GIVEN.
--- NOTE | 2019-06-25 12:14 | NUR ---
DC Planning: Phoned pt's father/Nina (same name as pt) informed dcp to LTAC per md order. MrTisha Wood expressed his concerns that moving pt to other hospital the pt may get relapses. The pt just had some good days this week and does not wants pt step back. SUE explained the care and expection at LTAC including [employer] insurance inpatient vs. LTAC approval. He stated understood but he wants pt to stay at [facility]. SUE advised him to call [employer] customer service to make such request. Meanwhile [place] will proceed to get auth from [employer]. Given to [place] : Savita Cesar CM tel # [phone], fax# [phone]. The process is that, [place] to create the case /call customer service # [phone] and summit the necessary documents for the approval.
--- NOTE | 2019-06-25 15:10 | NUR ---
Wound Re-Evaluation: Patient evaluated for a low Jacob score of 14. Patient was awake, non-verbal, non-responsive to verbal commands, on tracheostomy tube ventilator, and received in a Shaunna Bed with an IsoFlex CESILIA mattress with low air loss therapy. Patient needs to be turned in bed. JUDY Cornejo, was concerned about sanguineous soaked drain pads with quiet lesion on tracheostomy site that was created about 3 days ago. Skin assessment: 1. Tracheostomy site: Tracheostomy site, skin intact, dressing intact. Recommend: Change drain pads daily and when necessary for soiling. Change inter-dry AG cloth every 5 days and as needed for soiling. 2. Buttock: Scar tissue. Skin is intact. Recommend continue: Cleanse involved area with mild soap and water. Pat dry. Apply moisture barrier cream to involved area. Perform site care 4 times a day, and as needed for soiling. Do not place patient in supine position at any time. Recommend continue: Reposition patient [id number] only every 2 hours with pillow support. Elevate, off-load and float bilateral heels with pillows. Offload pressure areas with pillows for pressure re-distribution. Perform skin care and monitor skin integrity Q shift. Use moisture barrier cream on moisture susceptible areas QID and PRN for soiling. Maintain patient on low air-loss therapy.
--- NOTE | 2019-06-25 18:20 | NUR ---
FSBS. PT AWAKE, AFEBRILE, BLOOD SUGAR TESTED 133 MG/DL, NO INSULIN REQUIRED PER SLIDING SCALE, PT ON IVF NS AT TKO RATE, NEPRO VIA G TUBE AT 30 ML PER HR.
--- NOTE | 2019-06-25 19:45 | NUR ---
Opening Note Pt in bed awake, but not alert. SR on the monitor. Pt is Trach to vent, Portex 7. SIMV 6, FIO2 35%, TV 320, PEEP 5, PS 10. Pt has [facility] Eren catheter in place being used for ABx. Pt has G-tube in place running Tubefeeding. No residual noted. Pt has laureano catheter in place draining urine to gravity. Will continue to monitor.
[2019-06-25] MEDS: LATANOPROST 2.5 ML DROPS (XALATAN) OP SCH (21:19)
[2019-06-25] MEDS: EMOLLIENT COMBINATION NO.73 78 GM CREAM..G. TP SCH (21:19)
[2019-06-25] MEDS: HYDROCORTISONE 1%, 28.35 GM TOPICAL CREAM TP SCH (21:20)
[2019-06-25] MEDS: INSULIN GLARGINE 100 UNITS/ML 10 ML VIAL SUBCUT SCH (21:27)
[2019-06-26] VITALS (37 sets, daily range): BP systolic 101–166
[2019-06-26] MEDS: LevALBUTEROL HCL 1.25 MG/0.5 ML *CONC.* VIAL.NEB (XOPENEX CONC.) INH SCH ×4 (00:31→20:02)
[2019-06-26] MEDS: IPRATROPIUM BROM 0.5 MG/2.5 ML VIAL.NEB (ATROVENT) INH SCH ×4 (00:31→19:00)
[2019-06-26] MEDS: DILTIAZEM HCL 90 MG TABLET GT SCH ×4 (00:45→17:41)
--- NOTE | 2019-06-26 00:45 | NUR ---
RN Round Pt in bed asleep. No s/s of distress noted. Tolerating vent settings. No residual in G-tube, tolerating feedings well. Will continue to monitor.
[2019-06-26] MEDS: INSULIN LISPRO SLIDING SCALE 100 UNITS/ML VIAL (humaLOG) SUBCUT PRN ×2 (00:49→11:23)
--- NOTE | 2019-06-26 04:38 | NUR ---
RN Rounds Pt in bed asleep, no s/s of distress noted. Tolerating vent settings well. VSS. Will continue to monitor.
[2019-06-26] MEDS: HYDROCORTISONE SOD SUCC 100 MG/2 ML VIAL IVP SCH ×2 (05:13→17:45)
[2019-06-26] MEDS: LEVOTHYROXINE SODIUM 0.025 MG TABLET GT SCH (05:14)
[2019-06-26 05:38] LABS: BASOPHILS % (AUTO) 0.4 % (0.0-2.0); EOSINOPHILS # (AUTO) 0.3 K/uL (0.0-0.4); EOSINOPHILS % (AUTO) 2.9 % (0.0-4.0); HEMATOCRIT 34.5 % (36-54); HEMOGLOBIN 11.3 g/dL (14.0-18.0); LYMPHOCYTES # (AUTO) 1.7 K/uL (1.0-5.5); LYMPHOCYTES % (AUTO) 15.4 % (20.5-51.5); MEAN CORPUSCULAR HEMOGLOBIN 29 pg (27-31); MEAN CORPUSCULAR HGB CONC 33 % (32-36); MEAN CORPUSCULAR VOLUME 89 fL (79.0-98.0); MONOCYTES % (AUTO) 8.7 % (1.7-9.3); NEUTROPHILS % (AUTO) 72.6 % (40.0-70.0); PLATELET COUNT (AUTO) 305 K/uL (130-430); RED BLOOD CELL COUNT(AUTO) 3.86 MIL/uL (4.2-6.2); RED CELL DISTRIBUTION WIDTH 15.8 % (9.0-15.0); WHITE BLOOD COUNT (AUTO) 11.1 K/uL (4.8-10.8)
[2019-06-26 05:54] LABS: ALBUMIN 1.8 g/dL (3.4-4.8); CALCIUM 9.1 mg/dL (8.4-11.0); CREATININE 2.9 mg/dL (0.55-1.30); TOTAL BILIRUBIN 0.2 mg/dL (0.0-1.0)
--- NOTE | 2019-06-26 06:35 | NUR ---
Closing Note Pt in bed awake but unable to track. SR on the monitor, PT on CPAP 5, Ps 10, FIO2 35%. PT tolerating well. Will continue to monitor. Pt has RIJ Eren catheter in place, running ABx and NS @tko rate. Pt has G-tube in place running feeding @30ml/hr. Pt has no residual. Tolerating feedings well. Pt has laureano catheter draining minimal urine to gravity. Flexiseal noted, draining stool to gravity. Stool remains loose. Bed locked in lowest position, call light in reach, and safety precautions in place. Will endorse to oncoming RN.
[2019-06-26 06:59] LABS: POTASSIUM 3.7 mmol/L (3.5-5.1)
--- NOTE | 2019-06-26 07:05 | NUR ---
Endorsement Report given to RN at bedside via SBAR approach.
--- NOTE | 2019-06-26 07:21 | NUR ---
Opening Note Received plan of care via sbar from endorsing nurse Amauri KIM. Completed patient round. All safety measures met.
[2019-06-26] MEDS: ENOXAPARIN SODIUM 30 MG/0.3 ML SYRINGE SUBCUT SCH (08:55)
[2019-06-26] MEDS: CHOLESTYRAMINE/SUCROSE 4 GM/PACKET GT SCH (08:57)
[2019-06-26] MEDS: PANTOPRAZOLE SODIUM 40 MG/VIAL (PROTONIX) IVP SCH (08:57)
[2019-06-26] MEDS: FOLIC ACID 1 MG TABLET GT SCH (08:58)
[2019-06-26] MEDS: PARoxetine HCL 20 MG TABLET GT SCH ×2 (08:58→22:11)
[2019-06-26] MEDS: METOPROLOL TARTRATE 50 MG TABLET GT SCH ×2 (08:58→22:11)
[2019-06-26] MEDS: CHOLECALCIFEROL (VITAMIN D3) 2,000 UNIT TABLET GT SCH (08:58)
[2019-06-26] MEDS: BACLOFEN 10 MG TABLET GT SCH ×3 (08:58→22:11)
[2019-06-26] MEDS: FLUDROCORTISONE ACETATE 0.1 MG TABLET( FLORINEF) GT SCH (08:58)
[2019-06-26] MEDS: metroNIDAZOLE 500 mg/NS 100 ML IV SCH ×2 (09:00→22:10)
--- NOTE | 2019-06-26 09:00 | NUR ---
Patient's mother at bedside and she expressed to me that they would like to take their son back home. They use nursing agencies to help care for their son while at home. She will return back this evening with a list of agencies they are looking to work with and we will provide those contact information to case management.
[2019-06-26] MEDS: NYSTATIN 15 GM TOPICAL POWDER TP SCH (09:01)
[2019-06-26] MEDS: VALPROIC ACID ORAL SYRUP 250 MG/5 ML UDC GT SCH ×3 (09:02→22:11)
[2019-06-26] MEDS: CITRIC ACID/SODIUM CITRATE 30 ML UDC GT SCH ×3 (09:02→22:10)
[2019-06-26] MEDS: cefTRIAXone 1 GM in D5W 50 ML IV SCH (11:18)
--- NOTE | 2019-06-26 14:45 | NUR ---
Dr. Goldberg at bedside. Received orders for dialysis.
--- NOTE | 2019-06-26 19:20 | NUR ---
Closing Note Provided plan of care via sbar to receiving RNAmauri. Completed patient round.
--- NOTE | 2019-06-26 20:02 | NUR ---
Opening Note Pt in bed awake, but not alert. SR on the monitor. Pt is Trach to vent, Portex 7.CPAP 5, PS 10, FIO2 35%. Pt has [facility] Eren catheter in place being used for ABx and Dialysis. Pt currently receiving dialysis. parcel post delivery at bedside w/ Pt. Pt has G-tube in place running Tubefeeding. No residual noted. Pt has laureano catheter in place draining urine to gravity. Flexiseal in place draning loose stool to gravity. Will continue to monitor.
[2019-06-26] MEDS ORDERED: HEPARIN SODIUM,PORCINE 5000 UNITS/ML VIAL ONE (21:43)
[2019-06-26] MEDS: LATANOPROST 2.5 ML DROPS (XALATAN) OP SCH (22:12)
[2019-06-26] MEDS: EMOLLIENT COMBINATION NO.73 78 GM CREAM..G. TP SCH (22:12)
[2019-06-26] MEDS: HYDROCORTISONE 1%, 28.35 GM TOPICAL CREAM TP SCH (22:12)
[2019-06-26] MEDS: INSULIN GLARGINE 100 UNITS/ML 10 ML VIAL SUBCUT SCH (22:18)
--- NOTE | 2019-06-26 23:56 | NUR ---
RN Rounds Pt in bed asleep. No s/s of distress noted. Pt tolerating CPAP settings well. No residual noted from G-tube and Pt able to tolerate feedings. Will continue to monitor.
[2019-06-27] VITALS (32 sets, daily range): BP systolic 130–187
[2019-06-27] MEDS: DILTIAZEM HCL 90 MG TABLET GT SCH ×5 (00:14→23:57)
[2019-06-27] MEDS: INSULIN LISPRO SLIDING SCALE 100 UNITS/ML VIAL (humaLOG) SUBCUT PRN ×2 (00:22→11:37)
[2019-06-27] MEDS: IPRATROPIUM BROM 0.5 MG/2.5 ML VIAL.NEB (ATROVENT) INH SCH ×4 (01:00→20:24)
[2019-06-27] MEDS ORDERED: LevALBUTEROL HCL 1.25 MG/0.5 ML *CONC.* VIAL.NEB (XOPENEX CONC.) INH ONE (02:03)
[2019-06-27] MEDS: LevALBUTEROL HCL 1.25 MG/0.5 ML *CONC.* VIAL.NEB (XOPENEX CONC.) INH SCH ×4 (02:10→20:24)
--- NOTE | 2019-06-27 04:20 | NUR ---
RN Rounds Pt in bed asleep. No s/s of distress noted. Pt VSS. Tolerating feeding well. Tolerating CPAP well. Will continue to monitor.
[2019-06-27] MEDS: LEVOTHYROXINE SODIUM 0.025 MG TABLET GT SCH (05:33)
[2019-06-27] MEDS: HYDROCORTISONE SOD SUCC 100 MG/2 ML VIAL IVP SCH ×2 (05:34→17:27)
--- NOTE | 2019-06-27 06:23 | NUR ---
Pt in bed awake but unable to track. SR on the monitor, PT on CPAP 10/5, FIO2 35%. PT tolerating well, Saturations in the high 90s. Pt has RIJ Eren catheter in place, running ABx and NS @tko rate.IV site, C/D/I. Pt has G-tube in place running feeding @30ml/hr. NO residual noted. Pt has laureano catheter draining minimal urine to gravity. Flexiseal noted, draining stool to gravity. Stool remains loose. Bed locked in lowest position, call light in reach, and safety precautions in place. Will endorse to oncoming RN.
[2019-06-27 06:24] LABS: BASOPHILS # (AUTO) 0.1 K/uL (0.0-0.2); BASOPHILS % (AUTO) 0.6 % (0.0-2.0); EOSINOPHILS # (AUTO) 0.7 K/uL (0.0-0.4); EOSINOPHILS % (AUTO) 5.9 % (0.0-4.0); HEMATOCRIT 35.2 % (36-54); LYMPHOCYTES % (AUTO) 17.8 % (20.5-51.5); MEAN CORPUSCULAR HEMOGLOBIN 31 pg (27-31); MEAN CORPUSCULAR HGB CONC 34 % (32-36); MEAN CORPUSCULAR VOLUME 90 fL (79.0-98.0); MONOCYTES # (AUTO) 0.9 K/uL (0.0-1.0); MONOCYTES % (AUTO) 7.9 % (1.7-9.3); NEUTROPHILS # (AUTO) 7.6 K/uL (1.8-7.7); NEUTROPHILS % (AUTO) 67.8 % (40.0-70.0); PLATELET COUNT (AUTO) 354 K/uL (130-430); RED BLOOD CELL COUNT(AUTO) 3.92 MIL/uL (4.2-6.2); RED CELL DISTRIBUTION WIDTH 15.6 % (9.0-15.0); WHITE BLOOD COUNT (AUTO) 11.2 K/uL (4.8-10.8)
[2019-06-27 06:40] LABS: CALCIUM 8.1 mg/dL (8.4-11.0); CREATININE 2.21 mg/dL (0.55-1.30); PHOSPHORUS 3.7 mg/dL (2.7-4.5); POTASSIUM 3.6 mmol/L (3.5-5.1)
--- NOTE | 2019-06-27 07:15 | NUR ---
Endorsement Report given to oncoming RN at bedside via SBAR approach.
--- NOTE | 2019-06-27 07:20 | NUR ---
Opening Note Received plan of care via sbar from endorsing nurse Amauri KIM. Completed patient rounding. All safety measures met.
--- NOTE | 2019-06-27 08:30 | NUR ---
Completed oral care on patient using swab and suction. Patient tolerated procedure without complication or complaint. Applied mouth moisturizer.
[2019-06-27] MEDS: BACLOFEN 10 MG TABLET GT SCH ×3 (08:46→20:30)
[2019-06-27] MEDS: FLUDROCORTISONE ACETATE 0.1 MG TABLET( FLORINEF) GT SCH (08:46)
[2019-06-27] MEDS: CHOLECALCIFEROL (VITAMIN D3) 2,000 UNIT TABLET GT SCH (08:46)
[2019-06-27] MEDS: VALPROIC ACID ORAL SYRUP 250 MG/5 ML UDC GT SCH ×2 (08:48→20:32)
[2019-06-27] MEDS: METOPROLOL TARTRATE 50 MG TABLET GT SCH ×2 (08:48→20:31)
[2019-06-27] MEDS: FOLIC ACID 1 MG TABLET GT SCH (08:48)
[2019-06-27] MEDS: CHOLESTYRAMINE/SUCROSE 4 GM/PACKET GT SCH (08:48)
[2019-06-27] MEDS: PANTOPRAZOLE SODIUM 40 MG/VIAL (PROTONIX) IVP SCH (08:49)
[2019-06-27] MEDS: CITRIC ACID/SODIUM CITRATE 30 ML UDC GT SCH ×3 (08:49→20:30)
[2019-06-27] MEDS: PARoxetine HCL 20 MG TABLET GT SCH ×2 (08:50→20:30)
[2019-06-27] MEDS: NYSTATIN 15 GM TOPICAL POWDER TP SCH (08:50)
[2019-06-27] MEDS: metroNIDAZOLE 500 mg/NS 100 ML IV SCH ×2 (08:52→20:31)
[2019-06-27] MEDS: ENOXAPARIN SODIUM 30 MG/0.3 ML SYRINGE SUBCUT SCH (08:56)
--- NOTE | 2019-06-27 09:50 | NUR ---
RT NOTES Took pt off the vent and placed on 8L 35% cool aerosol via trach mask. Sxn orally before cuff deflation. No adverse reactions noted. Will monitor pt.
--- NOTE | 2019-06-27 10:30 | NUR ---
Dr. Goldberg at bedside. No new orders.
--- NOTE | 2019-06-27 11:05 | NUR ---
RT NOTES Pt cont. to tolerate 35% trach mask. No distress noted.
--- NOTE | 2019-06-27 11:30 | NUR ---
Dr. Guy at bedside. No new orders.
[2019-06-27] MEDS: cefTRIAXone 1 GM in D5W 50 ML IV SCH (11:32)
--- NOTE | 2019-06-27 14:30 | NUR ---
Patient observed having involuntary body movements. Patient head tilted to the side and Ativan was taken to administer. Patient tremors and shaking stopped post one minute from start. Patient vitals taken HR 111, Resp 12, SPO2 94%, and BP 156/94.
[2019-06-27] MEDS: LORazepam 2 MG/ML VIAL IV PRN ×2 (14:33→17:18)
--- NOTE | 2019-06-27 14:34 | NUR ---
Patient observed again having involuntary movements. Patient's tremors lasted for 1 min and 50 seconds. Patient head turned to the side and safety measures met. Paged Dr. Peterson
--- NOTE | 2019-06-27 14:55 | NUR ---
Received return call from Dr. Peterson. Per Dr. Peterson we will increase dose for valporic acid and check valporic acid levels in the AM. Dr. Peterson will enter orders.
[2019-06-27] MEDS ORDERED: VALPROIC ACID ORAL SYRUP 250 MG/5 ML UDC GT ONE (15:15)
[2019-06-27] MEDS: DILTIAZEM HCL 25 MG/5 ML VIAL IVP PRN (15:35)
--- NOTE | 2019-06-27 16:35 | NUR ---
Patient observed having all extremities with involuntary movements. Patient head placed to the side. Episode lasted for approx 1 min and ceased. 2 mins later, patient had another involuntary movement that lasted for another min. Patient suctioned. Paged Dr. Mendoza and Dr. Peterson.
--- NOTE | 2019-06-27 16:47 | NUR ---
Nutrition F/U RD reviewed pt's current EMR including diet Hx, physician notes, nursing notes, pertinent labs/meds/procedures, care trends and care activity. Current Nutrition Support: Nepro at 30 ml/hr, Banatrol BID via GT x7 days Provides: 1296 kcal/day, 58 gm protein/day, and 523 ml free water/day Meets: 108% of lower end of estimated caloric needs and 100% of lower end of estimated protein needs Subjective information: Pt is POD 12 s/p tracheostomy 06/15/19 and POD 8 s/p placement of dialysis catheter 06/19/19. Pt was having involuntary movements at time of RD visit -- RN at bedside providing care. TF was seen hung and infusing as per physician order. RN stated pt has been tolerating TF well, and plans to remove flexiseal as pt's stool has been less loose/bulking up. Per EMR, stool output of 100 ml 06/27/19. Current EN support remains adequate/appropriate. Labs: A1c 8.3H (06/18/19), BUN 32 H, CRE 2.21 H, eGFR 47 L, POC 168 H, WBC 11.2 H Estimated Energy Expenditure (kcals/day) 4738-4738 kcal/day (25-30kcal/kg CBW for critical illness) Estimated Protein Required (g/day) 58-67 gm/day (0.8 gm/kg CBW for ARF, dialysis) Estimated Fluid Required (l/day) Deferred to MD d/t ARF Problem/Etiology/Signs/Symptoms Altered GI function r/t medication AEB flagyl and reports of diarrhea per nursing staff *improving Altered nutrition related lab values related to renal dysfunction as evidenced by abnormal BUN, CRE, and eGFR lab values. *ongoing/modified* Expected Outcomes/Goals Monitor EN support and intake w/ goal of pt meeting at least 75% of estimated nutritional needs, labs trending WNL, normal GI function, skin integrity/wt maintenance. Dietitian Recommendations * Recommend continuing Nepro at 30 ml/hr, Banatrol BID via GT Provides: 1296 kcal/day, 58 gm protein/day, and 523 ml free water/day Meets: 100% of lower end of estimated caloric needs and 108% of lower end of estimated protein needs Follow Up Moderate Risk: F/U in 3-5 days
--- NOTE | 2019-06-27 16:55 | NUR ---
RT NOTES Placed pt back on vent w/ previous settings CPAP 5 PS10 due to multiple seizure episodes, @1710 due to tachypnea and seizure episodes, vent settings to SIMV 6 per previous order before CPAP. @1720 Vent settings to AC [address] Mendoza's order via JUDY Lisa.
--- NOTE | 2019-06-27 17:14 | NUR ---
Spoke with Dr. Peterson regarding continued seizure activity. He has had 4more seizures since bedside RN spoke to him earlier today. Orders received.
--- NOTE | 2019-06-27 17:18 | NUR ---
Dr. Kim durbin called and spoke with exchange. Dr. Lewis health information specialist.
--- NOTE | 2019-06-27 17:27 | NUR ---
Spoke with Dr. Mendoza regarding seizures. Orders left to place pt back on vent AC 10 and done by RT. Ativan dosage changed as well.
[2019-06-27] MEDS ORDERED: levETIRAcetam 500 MG in NS 100 ML IV ONE (18:00)
--- NOTE | 2019-06-27 19:25 | NUR ---
Closing Note Provided plan of care via sbar to receiving nurse Amauri KIM. Completed patient round. Safety measures met.
--- NOTE | 2019-06-27 19:35 | NUR ---
Opening Note Pt in bed awake, but not alert. SR on the monitor. Pt is Trach to vent, Portex 7. AC10, TV320, PEEP5 FIO2 35%. Pt has [facility] Eren catheter in place being used for ABx and Dialysis. Pt has G-tube in place running Tubefeeding. No residual noted. Pt has laureano catheter in place draining urine to gravity. Will continue to monitor.
--- NOTE | 2019-06-27 20:05 | NUR ---
Called Spoke with Dr. Bassett regarding consult. Informed of request for G-tube. MD to exam Pt in the morning. Addendum: 06/28/19 at 0447 by Amauri Sandy RN Disregard. Wrong Pt.
[2019-06-27] MEDS: LevETIRAcetam 500 MG/5 ML UDC ORAL LIQUID GT SCH (20:32)
[2019-06-27] MEDS: HYDROCORTISONE 1%, 28.35 GM TOPICAL CREAM TP SCH (20:33)
[2019-06-27] MEDS: EMOLLIENT COMBINATION NO.73 78 GM CREAM..G. TP SCH (20:33)
[2019-06-27] MEDS: LATANOPROST 2.5 ML DROPS (XALATAN) OP SCH (20:33)
[2019-06-27] MEDS: INSULIN GLARGINE 100 UNITS/ML 10 ML VIAL SUBCUT SCH (20:47)
[2019-06-28] VITALS (29 sets, daily range): BP systolic 90–144
--- NOTE | 2019-06-28 00:05 | NUR ---
RN Rounds Pt in bed asleep. No s/s of distress noted. No seizure activity noted. VSS. Tolerating vent settings. Will continue to monitor.
[2019-06-28] MEDS: LevALBUTEROL HCL 1.25 MG/0.5 ML *CONC.* VIAL.NEB (XOPENEX CONC.) INH SCH ×4 (01:14→19:19)
[2019-06-28] MEDS: IPRATROPIUM BROM 0.5 MG/2.5 ML VIAL.NEB (ATROVENT) INH SCH ×3 (01:14→13:47)
--- NOTE | 2019-06-28 04:50 | NUR ---
RN Rounds Pt in bed asleep. VSS. Tolerating vent settings. Tolerating feedings. No residual noted. Pt has no seizure activity noted. Will continue to monitor.
[2019-06-28] MEDS: LEVOTHYROXINE SODIUM 0.025 MG TABLET GT SCH (05:46)
[2019-06-28] MEDS: HYDROCORTISONE SOD SUCC 100 MG/2 ML VIAL IVP SCH ×2 (05:46→17:53)
[2019-06-28] MEDS: DILTIAZEM HCL 90 MG TABLET GT SCH ×3 (05:47→17:47)
--- NOTE | 2019-06-28 06:25 | NUR ---
Dr. Goldberg at bedside examining Pt.
[2019-06-28 06:38] LABS: BASOPHILS # (AUTO) 0.1 K/uL (0.0-0.2); BASOPHILS % (AUTO) 0.6 % (0.0-2.0); EOSINOPHILS # (AUTO) 0.3 K/uL (0.0-0.4); HEMATOCRIT 30.8 % (36-54); HEMOGLOBIN 10.6 g/dL (14.0-18.0); LYMPHOCYTES # (AUTO) 2.4 K/uL (1.0-5.5); LYMPHOCYTES % (AUTO) 22.2 % (20.5-51.5); MEAN CORPUSCULAR HEMOGLOBIN 30 pg (27-31); MEAN CORPUSCULAR HGB CONC 34 % (32-36); MEAN CORPUSCULAR VOLUME 88 fL (79.0-98.0); MONOCYTES % (AUTO) 8.9 % (1.7-9.3); NEUTROPHILS # (AUTO) 7.1 K/uL (1.8-7.7); NEUTROPHILS % (AUTO) 65.3 % (40.0-70.0); PLATELET COUNT (AUTO) 339 K/uL (130-430); RED BLOOD CELL COUNT(AUTO) 3.49 MIL/uL (4.2-6.2); RED CELL DISTRIBUTION WIDTH 15.8 % (9.0-15.0); WHITE BLOOD COUNT (AUTO) 10.9 K/uL (4.8-10.8)
--- NOTE | 2019-06-28 06:38 | NUR ---
Closing Note Pt in bed asleep. SR on the monitor, PT trach to vent. AC10, TV320, FIO2 35%, PEEP 5. Pt tolerating well, Saturations in the high 90s. Pt has RIJ Eren catheter in place, running ABx and NS @tko rate. IV site, C/D/I. Pt has G-tube in place running feeding @30ml/hr. No residual noted. Pt has laureano catheter draining minimal urine to gravity. Bed locked in lowest position, call light in reach, and safety precautions in place. Will endorse to oncoming RN.
[2019-06-28 06:51] LABS: CALCIUM 8.9 mg/dL (8.4-11.0); CREATININE 3.06 mg/dL (0.55-1.30); POTASSIUM 3.3 mmol/L (3.5-5.1)
--- NOTE | 2019-06-28 07:06 | NUR ---
Endorsement Repot given to oncoming RN at bedside via SBAR approach.
--- NOTE | 2019-06-28 07:34 | NUR ---
Opening Note Received plan of care via sbar from endorsing nurse Amauri KIM. Completed patient round. All safety measures met.
[2019-06-28] MEDS: PANTOPRAZOLE SODIUM 40 MG/VIAL (PROTONIX) IVP SCH (09:32)
[2019-06-28] MEDS: CHOLESTYRAMINE/SUCROSE 4 GM/PACKET GT SCH (09:32)
[2019-06-28] MEDS: metroNIDAZOLE 500 mg/NS 100 ML IV SCH ×2 (09:32→20:19)
[2019-06-28] MEDS: FOLIC ACID 1 MG TABLET GT SCH (09:33)
[2019-06-28] MEDS: BACLOFEN 10 MG TABLET GT SCH ×3 (09:33→20:20)
[2019-06-28] MEDS: FLUDROCORTISONE ACETATE 0.1 MG TABLET( FLORINEF) GT SCH (09:33)
[2019-06-28] MEDS: CHOLECALCIFEROL (VITAMIN D3) 2,000 UNIT TABLET GT SCH (09:33)
[2019-06-28] MEDS: METOPROLOL TARTRATE 50 MG TABLET GT SCH ×2 (09:33→20:20)
[2019-06-28] MEDS: PARoxetine HCL 20 MG TABLET GT SCH ×2 (09:34→20:20)
[2019-06-28] MEDS: CITRIC ACID/SODIUM CITRATE 30 ML UDC GT SCH ×3 (09:34→20:19)
[2019-06-28] MEDS: VALPROIC ACID ORAL SYRUP 250 MG/5 ML UDC GT SCH ×3 (09:35→20:19)
[2019-06-28] MEDS: NYSTATIN 15 GM TOPICAL POWDER TP SCH (09:35)
[2019-06-28] MEDS: LevETIRAcetam 500 MG/5 ML UDC ORAL LIQUID GT SCH ×2 (09:35→20:19)
[2019-06-28] MEDS: ENOXAPARIN SODIUM 30 MG/0.3 ML SYRINGE SUBCUT SCH (09:37)
--- NOTE | 2019-06-28 09:50 | NUR ---
RT NOTES Per dr Mendoza's order, pt off the vent, to cool aerosol via tmask. Pt was sxn via trach tube and orally before cuff deflation. due to low saturation FIO2 to 60% by RN. Will monitor pt.
[2019-06-28] MEDS ORDERED: POTASSIUM CHLORIDE 20 MEQ/PKT PACKET PO ONE (11:00)
[2019-06-28] MEDS: cefTRIAXone 1 GM in D5W 50 ML IV SCH (11:12)
[2019-06-28] MEDS: INSULIN LISPRO SLIDING SCALE 100 UNITS/ML VIAL (humaLOG) SUBCUT PRN (11:16)
--- NOTE | 2019-06-28 11:40 | NUR ---
RT NOTES Pt cont to tolerate tmask HR 79 RR 80 Saturation 99%. No distress noted. will titrate FIO2.
[2019-06-28] MEDS ORDERED: DILTIAZEM HCL 30 MG TABLET GT SCH (13:12)
--- NOTE | 2019-06-28 13:47 | NUR ---
RT NOTES FIO2 to 40%
[2019-06-28] MEDS ORDERED: HEPARIN SODIUM,PORCINE 5000 UNITS/ML VIAL MC ONE ×2 (16:15→16:30)
[2019-06-28] MEDS ORDERED: HEPARIN SODIUM,PORCINE 5000 UNITS/ML VIAL ONE (16:35)
--- NOTE | 2019-06-28 19:17 | NUR ---
Closing Note Provided plan of care via sbar to receiving nurse Amauri KIM. Completed patient round. All safety measures met.
--- NOTE | 2019-06-28 19:57 | NUR ---
Opening Note Pt in bed awake, but not alert. SR on the monitor. Pt is Trach to t-collar, FIO2 40%. Pt has [facility] Eren catheter in place being used for ABx and Dialysis. Pt has G-tube in place running Tubefeeding. No residual noted. Pt has laureano catheter in place draining urine to gravity. PT is dry and clean. Bed locked in lowest position, call light in reach, and safety precautions in place. Will continue to monitor. Will continue to monitor.
[2019-06-28] MEDS: HYDROCORTISONE 1%, 28.35 GM TOPICAL CREAM TP SCH (20:21)
[2019-06-28] MEDS: LATANOPROST 2.5 ML DROPS (XALATAN) OP SCH (20:21)
[2019-06-28] MEDS: EMOLLIENT COMBINATION NO.73 78 GM CREAM..G. TP SCH (20:21)
[2019-06-28] MEDS: INSULIN GLARGINE 100 UNITS/ML 10 ML VIAL SUBCUT SCH (20:23)
--- NOTE | 2019-06-28 21:45 | NUR ---
Medications given. Pt has noticeable swelling to right eye. No s/s of distress noted. VSS. Will continue to monitor.
[2019-06-29] VITALS (25 sets, daily range): BP systolic 109–159
[2019-06-29] MEDS: DILTIAZEM HCL 90 MG TABLET GT SCH ×4 (00:12→17:10)
[2019-06-29] MEDS: LevALBUTEROL HCL 1.25 MG/0.5 ML *CONC.* VIAL.NEB (XOPENEX CONC.) INH SCH ×4 (01:27→19:43)
--- NOTE | 2019-06-29 02:05 | NUR ---
RN Round Pt in bed in and out of sleep. VSS. No s/s of distress noted. Tolerating feedings well. No residual noted. Will continue to monitor.
--- NOTE | 2019-06-29 04:53 | NUR ---
RN Round Pt in bed asleep. No s/s of distress noted. Swelling noted to right side of face, especially around the eye. VSS. Will continue to monitor.
--- NOTE | 2019-06-29 05:20 | NUR ---
TRACH CARE DONE AT BEDSIDE. NO DISTRESS NOTED Addendum: 06/29/19 at 0538 by Nannette Dixon RT Amended: Links added.
[2019-06-29 05:48] LABS: BASOPHILS # (AUTO) 0.1 K/uL (0.0-0.2); BASOPHILS % (AUTO) 0.8 % (0.0-2.0); EOSINOPHILS # (AUTO) 0.5 K/uL (0.0-0.4); EOSINOPHILS % (AUTO) 4.4 % (0.0-4.0); HEMATOCRIT 35.3 % (36-54); HEMOGLOBIN 11.6 g/dL (14.0-18.0); LYMPHOCYTES # (AUTO) 2.5 K/uL (1.0-5.5); LYMPHOCYTES % (AUTO) 22.4 % (20.5-51.5); MEAN CORPUSCULAR HEMOGLOBIN 29 pg (27-31); MEAN CORPUSCULAR HGB CONC 33 % (32-36); MEAN CORPUSCULAR VOLUME 90 fL (79.0-98.0); MONOCYTES # (AUTO) 0.8 K/uL (0.0-1.0); MONOCYTES % (AUTO) 7.3 % (1.7-9.3); NEUTROPHILS # (AUTO) 7.2 K/uL (1.8-7.7); NEUTROPHILS % (AUTO) 65.1 % (40.0-70.0); PLATELET COUNT (AUTO) 363 K/uL (130-430); RED BLOOD CELL COUNT(AUTO) 3.94 MIL/uL (4.2-6.2); RED CELL DISTRIBUTION WIDTH 16.1 % (9.0-15.0)
[2019-06-29] MEDS: LEVOTHYROXINE SODIUM 0.025 MG TABLET GT SCH (05:52)
[2019-06-29] MEDS: HYDROCORTISONE SOD SUCC 100 MG/2 ML VIAL IVP SCH ×2 (05:53→17:09)
[2019-06-29 06:14] LABS: CALCIUM 8.9 mg/dL (8.4-11.0); CREATININE 2.13 mg/dL (0.55-1.30); POTASSIUM 3.3 mmol/L (3.5-5.1)
--- NOTE | 2019-06-29 06:36 | NUR ---
Closing Note Pt in bed asleep. SR on the monitor, PT trach to T-Collar. FIO2 40%.%. Pt tolerating well, Saturations in the high 90s. Pt right side of face remains swollen. Pt has RIJ Eren catheter in place, running ABx and NS @tko rate. IV site, C/D/I. Pt has G-tube in place running feeding @30ml/hr. No residual noted. Pt has laureano catheter draining minimal urine to gravity. Bed locked in lowest position, call light in reach, and safety precautions in place. Will endorse to oncoming RN.
--- NOTE | 2019-06-29 07:18 | NUR ---
Endorsement Report given to oncoming RN at bedside via SBAR approach.
--- NOTE | 2019-06-29 08:15 | NUR ---
Dr. Suarez at bedside examining patient. New orders received. Addendum: 06/29/19 at 1241 by Tricia Bryson RN No new orders.
[2019-06-29] MEDS: BACLOFEN 10 MG TABLET GT SCH ×3 (08:34→20:35)
[2019-06-29] MEDS: metroNIDAZOLE 500 mg/NS 100 ML IV SCH ×2 (08:34→20:37)
[2019-06-29] MEDS: PANTOPRAZOLE SODIUM 40 MG/VIAL (PROTONIX) IVP SCH (08:34)
[2019-06-29] MEDS: FLUDROCORTISONE ACETATE 0.1 MG TABLET( FLORINEF) GT SCH (08:34)
[2019-06-29] MEDS: POTASSIUM CHLORIDE 20 MEQ/PKT PACKET PO SCH (08:34)
[2019-06-29] MEDS: PARoxetine HCL 20 MG TABLET GT SCH ×2 (08:35→20:34)
[2019-06-29] MEDS: CITRIC ACID/SODIUM CITRATE 30 ML UDC GT SCH ×3 (08:35→20:34)
[2019-06-29] MEDS: LevETIRAcetam 500 MG/5 ML UDC ORAL LIQUID GT SCH ×2 (08:35→20:35)
[2019-06-29] MEDS: CHOLECALCIFEROL (VITAMIN D3) 2,000 UNIT TABLET GT SCH (08:35)
[2019-06-29] MEDS: VALPROIC ACID ORAL SYRUP 250 MG/5 ML UDC GT SCH ×3 (08:35→20:35)
[2019-06-29] MEDS: CHOLESTYRAMINE/SUCROSE 4 GM/PACKET GT SCH (08:36)
[2019-06-29] MEDS: FOLIC ACID 1 MG TABLET GT SCH (08:36)
[2019-06-29] MEDS: NYSTATIN 15 GM TOPICAL POWDER TP SCH (08:37)
[2019-06-29] MEDS: METOPROLOL TARTRATE 50 MG TABLET GT SCH ×2 (08:37→20:36)
[2019-06-29] MEDS: ENOXAPARIN SODIUM 30 MG/0.3 ML SYRINGE SUBCUT SCH (08:38)
[2019-06-29] MEDS ORDERED: BACLOFEN 10 MG TABLET ONE (08:56)
--- NOTE | 2019-06-29 08:58 | NUR ---
Dr. Goldberg at bedside examining patient. New orders received.
--- NOTE | 2019-06-29 09:45 | NUR ---
Dr. Lerma at bedside examining patient. New orders received.
--- NOTE | 2019-06-29 10:21 | NUR ---
Dr. Hussein at bedside examining patient. New orders received.
[2019-06-29] MEDS: cefTRIAXone 1 GM in D5W 50 ML IV SCH (11:02)
[2019-06-29] MEDS: cloNIDine HCL 0.3 MG/24 HR PATCH.TDWK TD SCH (11:03)
[2019-06-29] MEDS: INSULIN LISPRO SLIDING SCALE 100 UNITS/ML VIAL (humaLOG) SUBCUT PRN (11:09)
--- NOTE | 2019-06-29 12:15 | NUR ---
Patient's mother at bedside. Updated on patient status and plan of care. Education provided and all questions answered clearly.
[2019-06-29] MEDS: IPRATROPIUM BROM 0.5 MG/2.5 ML VIAL.NEB (ATROVENT) INH SCH ×3 (13:26→19:43)
[2019-06-29 13:48] LABS: COCCIDIOIDES AB COMPLEMENT FIX <1:2 (NEGATIVE)
--- NOTE | 2019-06-29 14:12 | NUR ---
Patient taken to radiology for CT on continuous athletic monitor and oxygen using ACLS protocol, accompanied by ACLS RN and robotic maintenance technician.
--- NOTE | 2019-06-29 14:38 | NUR ---
Patient returns to ICU from radiology department on continuous court recording monitor and oxygen using ACLS protocol, accompanied by ACLS RN and radiology practitioner assistant.
--- NOTE | 2019-06-29 15:10 | NUR ---
Dr. Glasgow at bedside examining patient. New orders received.
--- NOTE | 2019-06-29 15:11 | NUR ---
Hemodialysis Hemodialysis being done at bedside by legal assistant Nathaly.
--- NOTE | 2019-06-29 15:50 | NUR ---
CHG Patient given CHG bath. Patient had large loose BM. Pericare done. Patient cleaned, turned, and repositioned and bed linens changed. No signs or symptoms of acute distress noted.
--- NOTE | 2019-06-29 16:03 | NUR ---
DC Planning: Review dcp with pt's father/Mr Tisha Wood # [phone] and Sarah case briefer/Savita # [phone], per Savita the last inpt approval was on saturday06/26 . The next evaluation is subject to [place] physician review for further approval. made aware and the next plan approval for LTAC . CM confirmed with him and got the okay to transfer pt to LTAC when pt is stable and per dr. Peterson reevaluation and transfer order. Per dr. Peterson the pt is stable to transfer today the md will give order when come in for rounding. [place]/Ltac made aware. She stated still need to get the auth from [facility] and likely to have bed for the pt. tomorrow. Mr. Wood agreed with the POC to LTAC tomorrow.
[2019-06-29] MEDS ORDERED: HEPARIN SODIUM, PORCINE 10,000 UNITS/ 10 ML VIAL ONE (16:44)
[2019-06-29] MEDS ORDERED: VALPROIC ACID ORAL SYRUP 250 MG/5 ML UDC GT ONE (17:00)
--- NOTE | 2019-06-29 17:26 | NUR ---
Dr. Peterson at bedside examining patient. New orders received.
--- NOTE | 2019-06-29 18:16 | NUR ---
1800 trach care done, trach ties changed. pt sat 100%. Addendum: 06/29/19 at 1823 by Stephani Herrmann RT Amended: Links added.
--- NOTE | 2019-06-29 19:04 | NUR ---
Endorsement Endorsed bedside report to oncoming RN using SBAR approach for continuation of care.
[2019-06-29] MEDS: EMOLLIENT COMBINATION NO.73 78 GM CREAM..G. TP SCH (20:40)
[2019-06-29] MEDS: LATANOPROST 2.5 ML DROPS (XALATAN) OP SCH (20:40)
[2019-06-29] MEDS: HYDROCORTISONE 1%, 28.35 GM TOPICAL CREAM TP SCH (20:42)
[2019-06-29] MEDS: INSULIN GLARGINE 100 UNITS/ML 10 ML VIAL SUBCUT SCH (20:44)
[2019-06-30] VITALS (21 sets, daily range): BP systolic 119–161
[2019-06-30] MEDS: DILTIAZEM HCL 90 MG TABLET GT SCH ×5 (00:32→23:34)
[2019-06-30] MEDS: INSULIN LISPRO SLIDING SCALE 100 UNITS/ML VIAL (humaLOG) SUBCUT PRN ×3 (00:45→23:31)
[2019-06-30] MEDS: LevALBUTEROL HCL 1.25 MG/0.5 ML *CONC.* VIAL.NEB (XOPENEX CONC.) INH SCH ×4 (01:20→19:42)
[2019-06-30] MEDS: IPRATROPIUM BROM 0.5 MG/2.5 ML VIAL.NEB (ATROVENT) INH SCH ×4 (01:20→19:42)
[2019-06-30] MEDS: HYDROCORTISONE SOD SUCC 100 MG/2 ML VIAL IVP SCH ×2 (05:21→17:51)
[2019-06-30] MEDS: LEVOTHYROXINE SODIUM 0.025 MG TABLET GT SCH (05:22)
[2019-06-30 05:59] LABS: BASOPHILS # (AUTO) 0.1 K/uL (0.0-0.2); BASOPHILS % (AUTO) 0.5 % (0.0-2.0); EOSINOPHILS # (AUTO) 0.4 K/uL (0.0-0.4); EOSINOPHILS % (AUTO) 4.2 % (0.0-4.0); HEMATOCRIT 33.4 % (36-54); HEMOGLOBIN 11.1 g/dL (14.0-18.0); LYMPHOCYTES # (AUTO) 2.1 K/uL (1.0-5.5); LYMPHOCYTES % (AUTO) 21.2 % (20.5-51.5); MEAN CORPUSCULAR HEMOGLOBIN 30 pg (27-31); MEAN CORPUSCULAR HGB CONC 33 % (32-36); MEAN CORPUSCULAR VOLUME 90 fL (79.0-98.0); MONOCYTES # (AUTO) 0.6 K/uL (0.0-1.0); MONOCYTES % (AUTO) 6.6 % (1.7-9.3); NEUTROPHILS # (AUTO) 6.5 K/uL (1.8-7.7); NEUTROPHILS % (AUTO) 67.5 % (40.0-70.0); PLATELET COUNT (AUTO) 389 K/uL (130-430); RED BLOOD CELL COUNT(AUTO) 3.72 MIL/uL (4.2-6.2); RED CELL DISTRIBUTION WIDTH 15.8 % (9.0-15.0); WHITE BLOOD COUNT (AUTO) 9.7 K/uL (4.8-10.8)
--- NOTE | 2019-06-30 08:10 | NUR ---
Dr. Suarez at bedside examining patient. No new orders.
[2019-06-30] MEDS: LevETIRAcetam 500 MG/5 ML UDC ORAL LIQUID GT SCH ×2 (09:00→20:40)
[2019-06-30] MEDS: BACLOFEN 10 MG TABLET GT SCH ×3 (09:00→20:42)
[2019-06-30] MEDS: METOPROLOL TARTRATE 50 MG TABLET GT SCH ×2 (09:00→20:41)
[2019-06-30] MEDS: FLUDROCORTISONE ACETATE 0.1 MG TABLET( FLORINEF) GT SCH (09:00)
[2019-06-30] MEDS: CHOLECALCIFEROL (VITAMIN D3) 2,000 UNIT TABLET GT SCH (09:00)
[2019-06-30] MEDS: VALPROIC ACID ORAL SYRUP 250 MG/5 ML UDC GT SCH ×3 (09:00→20:40)
[2019-06-30] MEDS: POTASSIUM CHLORIDE 20 MEQ/PKT PACKET PO SCH (09:00)
[2019-06-30] MEDS: PANTOPRAZOLE SODIUM 40 MG/VIAL (PROTONIX) IVP SCH (09:00)
[2019-06-30] MEDS: PARoxetine HCL 20 MG TABLET GT SCH ×2 (09:00→20:41)
[2019-06-30] MEDS: CITRIC ACID/SODIUM CITRATE 30 ML UDC GT SCH ×3 (09:00→20:40)
[2019-06-30] MEDS: CHOLESTYRAMINE/SUCROSE 4 GM/PACKET GT SCH (09:00)
[2019-06-30] MEDS: ENOXAPARIN SODIUM 30 MG/0.3 ML SYRINGE SUBCUT SCH (09:00)
[2019-06-30] MEDS: metroNIDAZOLE 500 mg/NS 100 ML IV SCH ×2 (09:00→20:42)
[2019-06-30] MEDS: NYSTATIN 15 GM TOPICAL POWDER TP SCH (09:00)
[2019-06-30] MEDS: FOLIC ACID 1 MG TABLET GT SCH (09:00)
--- NOTE | 2019-06-30 09:30 | NUR ---
Dr. Lerma at bedside examining patient. New orders received.
--- NOTE | 2019-06-30 10:45 | NUR ---
Dr. Goldberg at bedside examining patient. No new orders.
[2019-06-30] MEDS ORDERED: POTASSIUM CHLORIDE 20 MEQ/PKT PACKET GT ONE (11:15)
[2019-06-30 11:29] LABS: CALCIUM 8.8 mg/dL (8.4-11.0); CREATININE 2.21 mg/dL (0.55-1.30); FREE T4 (FREE THYROXINE) 0.8 ng/dL (0.6-1.6); POTASSIUM 3.2 mmol/L (3.5-5.1)
[2019-06-30 11:32] LABS: TOTAL IRON BIND. CAPACITY 177 ug/dL (250-450)
--- NOTE | 2019-06-30 11:33 | NUR ---
Dr. Leon at bedside examining patient. No new orders.
[2019-06-30] MEDS: cefTRIAXone 1 GM in D5W 50 ML IV SCH (11:40)
--- NOTE | 2019-06-30 14:50 | NUR ---
Dr. Goldberg paged and return call. Dr. Goldberg states he "recommends pt to change bradley to permacath and either continue dialysis at home or outside facility."
--- NOTE | 2019-06-30 15:19 | NUR ---
CHG/BM CHG bath given. Patient had moderate loose BM. Pericare done and bed linens changed. Patient cleaned, turned, and repositioned. No signs or symptoms of acute distress noted.
--- NOTE | 2019-06-30 15:40 | NUR ---
Dr. Glasgow at bedside examining patient. No new orders.
--- NOTE | 2019-06-30 16:06 | NUR ---
DC Planning: late entry: 940 am: Per [place],the pt is accepted at [facility], and will have bed available today. [facility] have approved [place] as well/per Savita. [place] will need final dc order to release the bed and family agreement to transfer the patient. SUE notified via phone to pt's parents, s/w Mrs Wood to get the ok to transfer, she now refused pt going to [place] , said [place] does not have good review. She requested pt going to other LTAC. Stated Mr. Wood called [facility] again today and they agreed to send him the contracted Ltac list. Both Mr and Mrs Wood aware that [facility] approved the inpatient stay till today per Herminio/VICENTE. >> I spoke with [facility] customer service/SUE Ramirez/ [place] and as patient advocate /3rd alliance party with [facility]. She said her duty is to help coordinate with discharge and improve understanding the plan of care to the family. Ashley will send the LTAC contracted list to me and to Mr. Wood per his request. CM and pt's parents will speak again in am for the LTAC of choice. >>Discharge barriers: 1. Family wants pt to stay at [facility] until pt is stable to be dc home. 2. They refused [place] transfer, wants to look for other LTAC, ie., [facility] or [facility]. SUE faxed referral to Estefania/[facility] for review. Per Estefania the pt needs to be on Med surg status, [facility] is unable to care for the pt with tele level. 3. Needs PT eval order: [facility] required patient participation with the program base on PT eval. >>I spoke with dr. Peterson and Jes, ICU CN today: per dr. Peterson the pt can be discharged to home pending insurance ageeable with the home set up. Jes s/w with dr Porter for the home HD plan, requiring permacath placement, need order and procedure scheduling. (See Jes's note). -- Savita /VICENTE made aware, she will have [facility] coordinator/dcp calling me tomorrow to help setting up for home discharge.
--- NOTE | 2019-06-30 16:29 | NUR ---
1625 EDUCATED PT'S MOTHER ON LIMITED TRACH CARE DUE TO TRACH STILL SUTURED AND SUCTIONING.. ASSISTED CLEANING PT LIPS AND SUCTIONED SM TK BLOOD TINGED SECRETIONS.RN AWARE.. Addendum: 06/30/19 at 1640 by Stephani Herrmann RT Amended: Links added.
[2019-06-30] MEDS: LORazepam 2 MG/ML VIAL IVP PRN (17:52)
--- NOTE | 2019-06-30 19:11 | NUR ---
Endorsement Endorsed bedside report to oncoming RN using SBAR approach for continuation of care.
--- NOTE | 2019-06-30 19:34 | NUR ---
Pt is resting quietly in bed bed awake, but non-verbal. Trach is in place with T Collar and O2 at 40%. No respiratory distress noted. Pt is tolerating GTF of Nepro at 30ml/hr. Lema Cath to gravity drainage with small amount of yellowish urine noted. RIJ Eren cath is in place with the dressing dry and intact. Skin is warm and dry to touch. No signs or symptoms of hypoglycemia or hyperglycemia noted. Fall, seizure and safety precautions are in place.
--- NOTE | 2019-06-30 20:42 | NUR ---
Scheduled HS medications given. Tolerating GT feeding well. Oxygen via T collar continues.
[2019-06-30] MEDS: EMOLLIENT COMBINATION NO.73 78 GM CREAM..G. TP SCH (20:43)
[2019-06-30] MEDS: LATANOPROST 2.5 ML DROPS (XALATAN) OP SCH (20:43)
[2019-06-30] MEDS: HYDROCORTISONE 1%, 28.35 GM TOPICAL CREAM TP SCH (20:44)
[2019-06-30] MEDS: INSULIN GLARGINE 100 UNITS/ML 10 ML VIAL SUBCUT SCH (20:46)
--- NOTE | 2019-06-30 22:00 | NUR ---
No seizure activity noted. Tolerating GTF and T collar oxygen.
--- NOTE | 2019-06-30 23:31 | NUR ---
Accucheck 171 and skin remains warm and dry to touch. 2 units Humalog insulin was given SQ. GT Feeding of Nepro is in progress.
[2019-07-01] VITALS (11 sets, daily range): BP systolic 117–166
[2019-07-01] MEDS: LevALBUTEROL HCL 1.25 MG/0.5 ML *CONC.* VIAL.NEB (XOPENEX CONC.) INH SCH ×4 (00:42→19:00)
[2019-07-01] MEDS: IPRATROPIUM BROM 0.5 MG/2.5 ML VIAL.NEB (ATROVENT) INH SCH ×4 (00:42→19:00)
[2019-07-01] MEDS: LORazepam 2 MG/ML VIAL IVP PRN (02:05)
--- NOTE | 2019-07-01 02:05 | NUR ---
Ativan 1mg given IV for anxiety with relief.
[2019-07-01] MEDS: cloNIDine HCL 0.1 MG TABLET GT PRN (04:15)
--- NOTE | 2019-07-01 04:15 | NUR ---
Catapres 0.1mg given via GT for BP of 165/91.
--- NOTE | 2019-07-01 05:00 | NUR ---
BP 146/78. Pt is resting quietly in bed.
[2019-07-01] MEDS: HYDROCORTISONE SOD SUCC 100 MG/2 ML VIAL IVP SCH ×2 (05:21→18:00)
[2019-07-01] MEDS: DILTIAZEM HCL 90 MG TABLET GT SCH ×4 (05:24→23:58)
[2019-07-01] MEDS: LEVOTHYROXINE SODIUM 0.025 MG TABLET GT SCH (05:24)
--- NOTE | 2019-07-01 06:50 | NUR ---
Accucheck 104 this AM and skin remains warm and dry to touch. Pt is tolerating GT Feeding well. No seizure activity noted. Will endorse to day shift nurse.
--- NOTE | 2019-07-01 07:20 | NUR ---
SBAR report given to day shift nurse.
--- NOTE | 2019-07-01 07:30 | NUR ---
Opening Note Received plan of care via sbar from endorsing nurse Katai KIM. Completed patient round. Safety measures met.
[2019-07-01] MEDS: CHOLECALCIFEROL (VITAMIN D3) 2,000 UNIT TABLET GT SCH (08:29)
[2019-07-01] MEDS: PANTOPRAZOLE SODIUM 40 MG/VIAL (PROTONIX) IVP SCH (08:29)
[2019-07-01] MEDS: metroNIDAZOLE 500 mg/NS 100 ML IV SCH (08:29)
[2019-07-01] MEDS: PARoxetine HCL 20 MG TABLET GT SCH ×2 (08:29→21:54)
[2019-07-01] MEDS: FLUDROCORTISONE ACETATE 0.1 MG TABLET( FLORINEF) GT SCH (08:29)
[2019-07-01] MEDS: FOLIC ACID 1 MG TABLET GT SCH (08:30)
[2019-07-01] MEDS: CHOLESTYRAMINE/SUCROSE 4 GM/PACKET GT SCH (08:30)
[2019-07-01] MEDS: POTASSIUM CHLORIDE 20 MEQ/PKT PACKET PO SCH (08:30)
[2019-07-01] MEDS: BACLOFEN 10 MG TABLET GT SCH ×3 (08:30→21:53)
[2019-07-01] MEDS: METOPROLOL TARTRATE 50 MG TABLET GT SCH ×2 (08:30→21:54)
[2019-07-01] MEDS: NYSTATIN 15 GM TOPICAL POWDER TP SCH (08:30)
[2019-07-01] MEDS: VALPROIC ACID ORAL SYRUP 250 MG/5 ML UDC GT SCH ×4 (08:32→21:53)
[2019-07-01] MEDS: CITRIC ACID/SODIUM CITRATE 30 ML UDC GT SCH ×3 (08:32→21:52)
[2019-07-01] MEDS: LevETIRAcetam 500 MG/5 ML UDC ORAL LIQUID GT SCH ×2 (08:33→21:52)
[2019-07-01] MEDS: ENOXAPARIN SODIUM 30 MG/0.3 ML SYRINGE SUBCUT SCH (08:34)
--- NOTE | 2019-07-01 09:15 | NUR ---
Dr. Goldberg at bedside. Izabel (mom) and Yusuf discussing shelter dialysis. Yusuf is recommending a transfer to a facility that can facilitate care and dialysis. The mother is wanting to return her son back home to care for, but has decided to a transfer to a facility.
--- NOTE | 2019-07-01 10:00 | NUR ---
PT at bedside assisting with range of motion and pt evaluation.
--- NOTE | 2019-07-01 11:38 | NUR ---
DC Planning: LTAC vs home discharge. S/w Mr Wood via phone and Izabel(mother) at bedside about other contracted LTAC , the Ltac list (from Ashley/VICENTE) given to Izabel this am. Izabel requested #1 [facility] ( referral sent out yesterday), #2 [facility] ([facility]). The referral sent out this am attanibal Macias. I also asked them to consider and visit other [place] locations, ie [facility] and [place]. Mr. Wood does not want LTAC in [facility]. Addendum: 07/01/19 at 1241 by Winsome Conley RN >> Informed Izabel: [facility] declined admission. The pt. is not appropriate level of care at this time. Izabel asking to get the answer from [facility] if not accepted then she will consider [facility] facility. Addendum: 07/01/19 at 1544 by Winsome Conley RN >> F/I with Colleen at [facility] facility # [phone]: Colleen is in contact with cardiac care unit nurse/Nathalie Varela # [phone] who will help planing / arranging for the next level of care to LTAC /Sub Acute and other DMEs. out patient HD set up and as needed. Colleen will let me know tomorrow once she receives the answer from .
[2019-07-01] MEDS: cefTRIAXone 1 GM in D5W 50 ML IV SCH (12:17)
--- NOTE | 2019-07-01 12:27 | NUR ---
Discharge Planning: DCP spoke to [facility] patient is not appropriate at this time.
--- NOTE | 2019-07-01 13:41 | NUR ---
CHG performed on patient. Patient was given oral care, chg bath, and change of linens. Patient tolerated procedure without complaint or complication. Safety measure met prior to leaving patient room.
--- NOTE | 2019-07-01 16:53 | NUR ---
ASSUMPTION OF CARE- RECEIVED PT FROM ICU TO ROOM 100-B. FULL ASSESSMENT COMPLETED. VSS. MOM AT BS. PT, AND FAMILY ORIENTED TO BED, ROOM, CALL LIGHT , STAFF, UNIT. POC DISCUSSED WITH MOM. WILL F/U WITH DR BARNEY RE: PERMACATH PLACEMENT. RD OF CALL LIGHT NOTED. ENCOURAGED MOM TO CALL ME WITH ANY NEEDS
--- NOTE | 2019-07-01 16:55 | NUR ---
Transfer NOTE Transferred patient from ICU via bed to Telemetry room 100A. Patient is awake, alert, oriented X 1. Patient oriented to hospital room, call light, pain management and safety-teach back done. Patient informed that Lucie will be his primary nurse and that their room number is 100A. Personal belongings checked and Belongings List documented. Call light within reach. Mother Izabel has been informed. Safety measures met.
--- NOTE | 2019-07-01 16:55 | NUR ---
RT NOTES Transferred pt from ICU to 100A. Placed pt on 6L O2 via E-tank to trach mask. Placed pt back on cool aerosol 40% via trach mask once in the room. Trach tube remains secure. No distress noted. Ventilator, obturator, spare trach tube and ambubag at bedside. Pt's mtr. & RN Lucie at bedside.
--- NOTE | 2019-07-01 19:30 | NUR ---
Opening notes Received report. Patient is resting in bed receiving dialysis, which started at 1830. No signs of distress noted. Breathing even and unlabored on 40% FiO2 through trach. VSS. RIJ bradley catheter noted. G-tube in place infusing feeding. Lema catheter in place, draining yellow urine. No needs at this time. Call light with the patient. Safety precautions in place.
[2019-07-01] MEDS ORDERED: HEPARIN SODIUM,PORCINE 5000 UNITS/ML VIAL MC ONE (19:45)
--- NOTE | 2019-07-01 21:30 | NUR ---
HD complete 2 L out. Patient in stable condition. No signs of distress noted. Breathing even and unlabored.
[2019-07-01] MEDS: EMOLLIENT COMBINATION NO.73 78 GM CREAM..G. TP SCH (21:55)
[2019-07-01] MEDS: HYDROCORTISONE 1%, 28.35 GM TOPICAL CREAM TP SCH (21:55)
[2019-07-01] MEDS: LATANOPROST 2.5 ML DROPS (XALATAN) OP SCH (21:55)
[2019-07-01] MEDS: INSULIN GLARGINE 100 UNITS/ML 10 ML VIAL SUBCUT SCH (21:58)
--- NOTE | 2019-07-01 22:00 | NUR ---
Medications given via g-tube. No residual noted. Patient tolerated well. Educated the action and side effects of medications. Patient turned and repositioned. No other needs. Call light with the patient. Safety precautions in place.
[2019-07-01] MEDS: hydrALAZINE HCL 20 MG/ML VIAL IVP PRN (23:45)
--- NOTE | 2019-07-02 | NUR ---
Medications Patient BP 192/109 HR 100. Scheduled Cardizem not available. PRN apresoline given. Educated the action and side effects of medications. Patient tolerated well. Patient father at bedside and requested for patient to have something for sleep. PRN Ativan also given. Educated the action and side effects of medications. Patient tolerated well. About an hour later, patient BP 148/87. Will continue to monitor. Patient's father updated on plan of care. No other needs. Call light with the patient. safety precautions in place.
[2019-07-02] MEDS: INSULIN LISPRO SLIDING SCALE 100 UNITS/ML VIAL (humaLOG) SUBCUT PRN (00:05)
[2019-07-02] MEDS: LORazepam 2 MG/ML VIAL IVP PRN ×2 (00:06→22:52)
[2019-07-02 00:07] VITALS: BP_SYST 181
[2019-07-02 00:50] VITALS: BP_SYST 148
[2019-07-02] MEDS: LevALBUTEROL HCL 1.25 MG/0.5 ML *CONC.* VIAL.NEB (XOPENEX CONC.) INH SCH ×4 (01:26→20:08)
[2019-07-02] MEDS: IPRATROPIUM BROM 0.5 MG/2.5 ML VIAL.NEB (ATROVENT) INH SCH ×4 (01:26→20:08)
--- NOTE | 2019-07-02 02:30 | NUR ---
Sleeping Patient sleeping, no signs of distress noted. Breathing even and unlabored. Feeding infusing well. No needs at this time. Father at bedside. Call light with the patient. Safety precautions in place.
--- NOTE | 2019-07-02 04:30 | NUR ---
Assisted patient with bed bath and pericare as needed. Patient is now clean and dry, resting comfortably in bed. All linen and patient gown has been changed as needed. Call light within reach. Encouraged patient to call for assistance.
[2019-07-02] MEDS: HYDROCORTISONE SOD SUCC 100 MG/2 ML VIAL IVP SCH ×2 (05:57→18:50)
[2019-07-02] MEDS: hydrALAZINE HCL 20 MG/ML VIAL IVP PRN (05:58)
[2019-07-02] MEDS: DILTIAZEM HCL 90 MG TABLET GT SCH ×3 (05:59→19:56)
[2019-07-02] MEDS: LEVOTHYROXINE SODIUM 0.025 MG TABLET GT SCH (05:59)
[2019-07-02 07:08] LABS: BASOPHILS # (AUTO) 0.1 K/uL (0.0-0.2); BASOPHILS % (AUTO) 0.6 % (0.0-2.0); EOSINOPHILS # (AUTO) 1.6 K/uL (0.0-0.4); EOSINOPHILS % (AUTO) 8.6 % (0.0-4.0); HEMATOCRIT 37.1 % (36-54); HEMOGLOBIN 12.1 g/dL (14.0-18.0); LYMPHOCYTES # (AUTO) 3.5 K/uL (1.0-5.5); LYMPHOCYTES % (AUTO) 18.8 % (20.5-51.5); MEAN CORPUSCULAR HEMOGLOBIN 30 pg (27-31); MEAN CORPUSCULAR HGB CONC 33 % (32-36); MEAN CORPUSCULAR VOLUME 90 fL (79.0-98.0); MONOCYTES # (AUTO) 0.8 K/uL (0.0-1.0); MONOCYTES % (AUTO) 4.3 % (1.7-9.3); NEUTROPHILS # (AUTO) 12.6 K/uL (1.8-7.7); NEUTROPHILS % (AUTO) 67.7 % (40.0-70.0); RED CELL DISTRIBUTION WIDTH 15.9 % (9.0-15.0); WHITE BLOOD COUNT (AUTO) 18.6 K/uL (4.8-10.8)
[2019-07-02 07:17] LABS: CREATININE 2.1 mg/dL (0.55-1.30); POTASSIUM 3.9 mmol/L (3.5-5.1)
--- NOTE | 2019-07-02 07:52 | NUR ---
Closing notes Patient is resting in bed, eyes closed. No signs of distress noted. Breathing even and unlabored on 40% FiO2 through trach. VSS. RIJ bradley catheter noted. G-tube in place infusing feeding. Lema catheter in place, draining yellow urine. No needs at this time. Call light with the patient. Safety precautions in place. All needs have been met during this shift. Endorsement of care given to dayshift RN.
[2019-07-02 08:00] VITALS: BP_SYST 154
--- NOTE | 2019-07-02 08:00 | NUR ---
initial notes rec patient with eyes close but arousable to stimuli. pt with a trache connected to t bar. resp easy and unlabored. no sob noted. ivf kvo running through the r bradley cath pigtail . no infiltration noted. grandmother at bedside. bed to the lowest position and side rails up and locked. call light within reached. will continue to monitor patient.
[2019-07-02 08:23] LABS: PLATELET COUNT (AUTO) 431 K/uL (130-430)
[2019-07-02] MEDS: PANTOPRAZOLE SODIUM 40 MG/VIAL (PROTONIX) IVP SCH (09:39)
[2019-07-02] MEDS: FOLIC ACID 1 MG TABLET GT SCH (09:39)
[2019-07-02] MEDS: CHOLESTYRAMINE/SUCROSE 4 GM/PACKET GT SCH (09:39)
[2019-07-02] MEDS: BACLOFEN 10 MG TABLET GT SCH ×3 (09:40→22:12)
[2019-07-02] MEDS: FLUDROCORTISONE ACETATE 0.1 MG TABLET( FLORINEF) GT SCH (09:40)
[2019-07-02] MEDS: POTASSIUM CHLORIDE 20 MEQ/PKT PACKET PO SCH (09:40)
[2019-07-02] MEDS: PARoxetine HCL 20 MG TABLET GT SCH ×2 (09:40→22:12)
[2019-07-02] MEDS: CHOLECALCIFEROL (VITAMIN D3) 2,000 UNIT TABLET GT SCH (09:40)
[2019-07-02] MEDS: METOPROLOL TARTRATE 50 MG TABLET GT SCH ×2 (09:41→22:13)
[2019-07-02] MEDS: ENOXAPARIN SODIUM 30 MG/0.3 ML SYRINGE SUBCUT SCH (09:43)
[2019-07-02] MEDS: VALPROIC ACID ORAL SYRUP 250 MG/5 ML UDC GT SCH ×4 (09:56→22:14)
[2019-07-02] MEDS: CITRIC ACID/SODIUM CITRATE 30 ML UDC GT SCH ×3 (09:57→22:11)
[2019-07-02] MEDS: LevETIRAcetam 500 MG/5 ML UDC ORAL LIQUID GT SCH ×2 (09:58→22:14)
[2019-07-02] MEDS: NYSTATIN 15 GM TOPICAL POWDER TP SCH (09:59)
[2019-07-02 12:00] VITALS: BP_SYST 125; BP_SYST 154
[2019-07-02] MEDS: cefTRIAXone 1 GM in D5W 50 ML IV SCH (12:32)
--- NOTE | 2019-07-02 15:23 | NUR ---
DC Planning: LTAC VS Home with home HD. f/u with Colleen at [facility] facility # [phone], stated the pt is low functioned for rehabilitation and is not accepted at this time. In addition, the facility is unable to provide the transportation to and from HD ctr. Izabel and Mr Wood made aware. Izabel wants to pursue other LTAC in [place] are. The referrals sent to [facility] [place] and [facility] per Izabel request. I LVM to update [facility] careers adviser/Nathalie Varela # [phone]. >> HOME HD : I spoke with dr. Porter today: The pt will need permacath, but dr. Benitez is not available till Saturday. The pt will need permanent HD every other day. Dr. Porter group is not able to help with home HD. He spoke with dr. Guajardo and advised to get more detail from nurse intake at dr. Guajardo HD ctr. I s/w Prezi # [facility] # [phone]. She will be meeting with Izabel at bedside tomorrow by 1200 -1300 pm. She will give the set up process info.
--- NOTE | 2019-07-02 16:14 | NUR ---
Nutrition F/U RD reviewed pt's current EMR including diet Hx, physician notes, nursing notes, pertinent labs/meds/procedures, care trends and care activity. Current Nutrition Support: Nepro at 30 ml/hr, Banatrol BID via GT x12 days Provides: 1296 kcal/day, 58 gm protein/day, and 523 ml free water/day Meets: 108% of lower end of estimated caloric needs and 100% of lower end of estimated protein needs Subjective information: Pt is POD 17 s/p tracheostomy 06/15/19 and POD 13 s/p placement of dialysis catheter 06/19/19. Pt was seen resting in bed, grand-mother at bedside. TF was seen hung and infusing as per physician order. No s/s of intolerance noted per EMR. Pt is no loner experiencing diarrhea. Current EN support remains adequate/appropriate. Labs: HgA1c 8.3 H (06/18/19), BUN 34 H, CRE 2.1 H, eGFR 41 L, POC 90 WNL (improved), WBC 18.6 H Estimated Energy Expenditure (kcals/day) 9063-3538 kcal/day (25-30kcal/kg CBW for critical illness) Estimated Protein Required (g/day) 58-67 gm/day (0.8 gm/kg CBW for ARF, dialysis) Estimated Fluid Required (l/day) Deferred to MD d/t ARF Problem/Etiology/Signs/Symptoms Altered GI function r/t medication AEB flagyl and reports of diarrhea per nursing staff *no longer applicable Altered nutrition related lab values related to renal dysfunction as evidenced by abnormal BUN, CRE, and eGFR lab values. *ongoing/modified* Expected Outcomes/Goals Monitor EN support and intake w/ goal of pt meeting at least 75% of estimated nutritional needs, labs trending WNL, normal GI function, skin integrity/wt maintenance. Dietitian Recommendations * Recommend Nepro at 30 ml/hr via GT Provides: 1296 kcal/day, 58 gm protein/day, and 523 ml free water/day Meets: 100% of lower end of estimated caloric needs and 108% of lower end of estimated protein needs Follow Up Moderate Risk: F/U in 3-5 days Addendum: 07/02/19 at [address] CORRECTION: Estimated Protein Required (g/day) 58-67 gm/day (0.8-1.2 gm/kg CBW for ARF, dialysis)
--- NOTE | 2019-07-02 16:20 | NUR ---
Dietitian Recommendations * Recommend Nepro at 30 ml/hr via GT Provides: 1296 kcal/day, 58 gm protein/day, and 523 ml free water/day Meets: 100% of lower end of estimated caloric needs and 108% of lower end of estimated protein needs LP, RD Please refer to Nutrition F/U for details.
--- NOTE | 2019-07-02 16:49 | NUR ---
DC Planning: Per JUDY Gomes, dr. Smith is not available to do the permacath until Saturday. Dr. Peterson made aware and order to contact dr. Smith instead. The order obtained and carried out. I requested US Liza to make call to the md. Addendum: 07/03/19 at 1527 by Winsome Conley RN correction: Dr Benitez is not available, to contact dr. Smith instead.
--- NOTE | 2019-07-02 16:55 | NUR ---
Discharge Planning: DCP faxed patient referral to [facility] ([phone] p [phone]) DCP to follow up
--- NOTE | 2019-07-02 16:59 | NUR ---
CONSULT SURGICAL PERMACATH MOSES GE [phone] S/W JEREMY EXCHANGE
[2019-07-02 17:56] VITALS: BP_SYST 124
--- NOTE | 2019-07-02 19:20 | NUR ---
OPENING NOTES Pt and endorsement received from day shift nurse. Pt is resting in bed with both eyes closed, with visible chest rise and fall with non-labored breathing noted. Pt on O2 inhalation via T-bar with FiO2 at 40%. Noted right internal jugular bradley/pigtail dressing is clean, dry and intact. Pt with G-tube feeding with Nepro at 30ml/hr and infusing well. Pt with laureano catheter with yellow urine noted in the bag and hanged below bladder level. No moaning or grimacing noted. No signs of acute distress or SOB noted. Safety precautions in place with 3 side rails up, wheels locked, bed alarm on and in lowest level. Seizure pads in place. Will continue to monitor.
[2019-07-02 22:08] VITALS: BP_SYST 164
[2019-07-02] MEDS: EMOLLIENT COMBINATION NO.73 78 GM CREAM..G. TP SCH (22:15)
[2019-07-02] MEDS: LATANOPROST 2.5 ML DROPS (XALATAN) OP SCH (22:15)
[2019-07-02] MEDS: HYDROCORTISONE 1%, 28.35 GM TOPICAL CREAM TP SCH (22:16)
[2019-07-02] MEDS: INSULIN GLARGINE 100 UNITS/ML 10 ML VIAL SUBCUT SCH (22:20)
--- NOTE | 2019-07-02 22:20 | NUR ---
ROUNDS Assessed for bowel sounds and is active upon auscultation. No residual upon aspiration. All due meds given and pt tolerated well. Aspiration precaution maintained with head elevated at 45 degrees. No signs of acute distress noted. Safety precautions in place. Will continue to monitor.
[2019-07-03] VITALS (7 sets, daily range): BP systolic 118–158
[2019-07-03] MEDS: INSULIN LISPRO SLIDING SCALE 100 UNITS/ML VIAL (humaLOG) SUBCUT PRN ×3 (00:20→23:29)
[2019-07-03] MEDS: DILTIAZEM HCL 90 MG TABLET GT SCH ×5 (00:22→23:30)
[2019-07-03] MEDS: cloNIDine HCL 0.1 MG TABLET GT PRN (00:33)
--- NOTE | 2019-07-03 00:33 | NUR ---
ROUNDS Pt's BP was 158/70mmHg. Catapres 0.1mg given as ordered. No signs of acute distress noted. Father at bedside. Safety precautions in place. Will continue to monitor recheck BP.
[2019-07-03] MEDS: IPRATROPIUM BROM 0.5 MG/2.5 ML VIAL.NEB (ATROVENT) INH SCH ×4 (00:40→19:30)
[2019-07-03] MEDS: LevALBUTEROL HCL 1.25 MG/0.5 ML *CONC.* VIAL.NEB (XOPENEX CONC.) INH SCH ×4 (00:40→19:30)
--- NOTE | 2019-07-03 02:42 | NUR ---
ROUNDS Pt is resting in bed with both eyes closed, with visible chest rise and fall with non-labored breathing noted. G-tube feeding is infusing well. No moaning or grimacing noted. No signs of acute distress noted. Father at bedside. Safety precautions in place. Will continue to monitor.
--- NOTE | 2019-07-03 04:30 | NUR ---
ROUNDS Pt is resting in bed with both eyes closed, with visible chest rise and fall with non-labored breathing noted. G-tube feeding is infusing well. No signs of acute distress or SOB noted. No needs at this time. Father at bedside. Safety precautions in place. Will continue to monitor.
--- NOTE | 2019-07-03 05:45 | NUR ---
TRACH CARE DONE. INNER CANNULA CHANGED. TRACH INTACT AND SECURE. Addendum: 07/03/19 at 0559 by Nannette Dixon RT Amended: Links added.
[2019-07-03] MEDS: HYDROCORTISONE SOD SUCC 100 MG/2 ML VIAL IVP SCH ×2 (06:09→18:00)
[2019-07-03] MEDS: LEVOTHYROXINE SODIUM 0.025 MG TABLET GT SCH (06:09)
--- NOTE | 2019-07-03 06:45 | NUR ---
CLOSING NOTES Pt is resting in bed with both eyes closed, with visible chest rise and fall with non-labored breathing noted. Pt maintained on O2 inhalation via T-bar with FiO2 at 40%. G-tube feeding is infusing well. Kept laureano bag hanged below bladder level. No moaning or grimacing noted. No signs of acute distress or SOB noted. All needs attended throughout the shift. Safety precautions maintained with 3 side rails up, wheels locked, bed alarm on and in lowest level. Seizure pads in place. Will continue to monitor.
[2019-07-03 06:52] LABS: BASOPHILS # (AUTO) 0.1 K/uL (0.0-0.2); BASOPHILS % (AUTO) 0.4 % (0.0-2.0); EOSINOPHILS # (AUTO) 0.3 K/uL (0.0-0.4); EOSINOPHILS % (AUTO) 2.2 % (0.0-4.0); HEMATOCRIT 30.9 % (36-54); HEMOGLOBIN 10.1 g/dL (14.0-18.0); LYMPHOCYTES # (AUTO) 2.6 K/uL (1.0-5.5); LYMPHOCYTES % (AUTO) 17.2 % (20.5-51.5); MEAN CORPUSCULAR HEMOGLOBIN 30 pg (27-31); MEAN CORPUSCULAR HGB CONC 33 % (32-36); MEAN CORPUSCULAR VOLUME 91 fL (79.0-98.0); MONOCYTES # (AUTO) 0.9 K/uL (0.0-1.0); MONOCYTES % (AUTO) 5.8 % (1.7-9.3); NEUTROPHILS # (AUTO) 11.1 K/uL (1.8-7.7); NEUTROPHILS % (AUTO) 74.4 % (40.0-70.0); PLATELET COUNT (AUTO) 349 K/uL (130-430); RED BLOOD CELL COUNT(AUTO) 3.41 MIL/uL (4.2-6.2); RED CELL DISTRIBUTION WIDTH 15.6 % (9.0-15.0); WHITE BLOOD COUNT (AUTO) 14.9 K/uL (4.8-10.8)
--- NOTE | 2019-07-03 07:10 | NUR ---
Patient in bed, in no acute distress. Alert and oriented. Breathing even and unlabored. Denies pain. Call light with in reach. Padded side rails in place.
[2019-07-03 07:23] LABS: CALCIUM 9.2 mg/dL (8.4-11.0); CREATININE 2.69 mg/dL (0.55-1.30); PHOSPHORUS 3.7 mg/dL (2.7-4.5); POTASSIUM 3.7 mmol/L (3.5-5.1)
[2019-07-03] MEDS: CITRIC ACID/SODIUM CITRATE 30 ML UDC GT SCH ×3 (09:19→21:04)
[2019-07-03] MEDS: CHOLESTYRAMINE/SUCROSE 4 GM/PACKET GT SCH (09:20)
[2019-07-03] MEDS: VALPROIC ACID ORAL SYRUP 250 MG/5 ML UDC GT SCH ×4 (09:20→21:04)
[2019-07-03] MEDS: POTASSIUM CHLORIDE 20 MEQ/PKT PACKET PO SCH (09:21)
[2019-07-03] MEDS: CHOLECALCIFEROL (VITAMIN D3) 2,000 UNIT TABLET GT SCH (09:21)
[2019-07-03] MEDS: PANTOPRAZOLE SODIUM 40 MG/VIAL (PROTONIX) IVP SCH (09:21)
[2019-07-03] MEDS: PARoxetine HCL 20 MG TABLET GT SCH ×2 (09:21→21:03)
[2019-07-03] MEDS: METOPROLOL TARTRATE 50 MG TABLET GT SCH ×2 (09:22→21:03)
[2019-07-03] MEDS: FOLIC ACID 1 MG TABLET GT SCH (09:22)
[2019-07-03] MEDS: BACLOFEN 10 MG TABLET GT SCH ×3 (09:23→21:03)
[2019-07-03] MEDS: FLUDROCORTISONE ACETATE 0.1 MG TABLET( FLORINEF) GT SCH (09:23)
[2019-07-03] MEDS: ENOXAPARIN SODIUM 30 MG/0.3 ML SYRINGE SUBCUT SCH (09:24)
[2019-07-03] MEDS: NYSTATIN 15 GM TOPICAL POWDER TP SCH (09:26)
[2019-07-03] MEDS: LevETIRAcetam 500 MG/5 ML UDC ORAL LIQUID GT SCH ×2 (09:41→21:04)
--- NOTE | 2019-07-03 10:31 | NUR ---
Discharge Planning: DCP followed up [facility] ([phone] p [phone]) per Misty ROGERS is reviewing. DCP to follow up.
[2019-07-03] MEDS: cefTRIAXone 1 GM in D5W 50 ML IV SCH (12:00)
[2019-07-03] MEDS ORDERED: HEPARIN SODIUM,PORCINE 5000 UNITS/ML VIAL ONE (12:48)
--- NOTE | 2019-07-03 14:00 | NUR ---
Endorsed and gave report to MST nurse. Patient in bed in no acute distress. Denies pain. Breathing even and unlabored. Call light with in reach. Side rails x 3 up.
--- NOTE | 2019-07-03 14:05 | NUR ---
Opening Note received bedside SBAR report from endorsing RN, patient resting in bed, respirations even and unlabored on 10L trach mask, laureano catheter draining to gravity, tube feeding Nephro 1.8 @ 30ml/hr, patients family at bedside, Dr. Peterson at bedside, new medication orders received, verified with read back, educated patient on use of call light and asked to call for assistance, call light in reach, bed in low and locked position, bed alarm on.
[2019-07-03] MEDS ORDERED: MORPHINE 2 MG/ML INJ. SYRINGE IVP PRN (14:15)
[2019-07-03] MEDS ORDERED: MORPHINE 2 MG/ML INJ. SYRINGE IVP ONE (14:15)
[2019-07-03] MEDS: MORPHINE 2 MG/ML INJ. SYRINGE IVP PRN (14:19)
--- NOTE | 2019-07-03 15:28 | NUR ---
DC Planning: late entry: Meeting with Izabel/Mother and Mildred, home HD nurse from dr. Guajardo office to discuss home dialysis process. Per Mildred, in order receive home HD, the pt MUST be dc to home and able to travel to the HD center for treatments and the medical dosimetrist(s) can be trained at the center as well. BY law she is not allow to do the family training while the pt is at any sub acute facility. At this time, clinically the pt is not stable for home HD with trach and still need respiratory equipment for home set up. I spoke with valente Zelaya at for possible transferring pt to [facility] in [place] where can provide HD in house. [facility] contracted with insurance per Kylah. Summary: as of today: >> [facility] and [facility] are not accepting the pt. >> [facility] accepted but parents do not want pt to go there. >> [facility]/Flakita ROGERS said : not accepting but will sent to medical md for second review.-- Pending accepting decision. >> Sent referral to [facility] attn Waldemar fax# [phone], tel # [phone] per Izabel request. PER KYLAH : [facility] IS CLOSED DURING WEEKEND. CM TO F/U ON SATURDAY.
--- NOTE | 2019-07-03 16:08 | NUR ---
RN Rounds patient resting in bed, no pain noted using FLACC scale, no acute distress noted, patients mother at bedside.
[2019-07-03] MEDS ORDERED: COMMUNICATION ORDER XX ONE (16:15)
--- NOTE | 2019-07-03 18:20 | NUR ---
RN Rounds patient resting in bed, respirations even and unlabored, trach to trach mask at 10L oxygen, no pain noted using FLACC scale, no acute distress noted.
--- NOTE | 2019-07-03 19:23 | NUR ---
Closing Note bedside SBAR report given to receiving RN, patient resting in bed, respirations even and unlabored, trach to trach mask at 10L oxygen, no pain noted using FLACC scale, no acute distress noted, educated patient on use of call light and asked to call for assistance, call light in reach, bed in low and locked position, bed alarm on, care endorsed to night warehouse selector RN.
--- NOTE | 2019-07-03 19:30 | NUR ---
OPENING NOTES Pt and endorsement received from day shift nurse. Pt is awake, non-verbal, and lying in bed. Pt on O2 inhalation via T-bar with FiO2 at 40%. Pt with right internal jugular bradley/pigtail noted with clean, dry and intact dressing. Pt with G-tube feeding with Nepro at 30ml/hr and infusing well. Pt with laureano catheter with yellow urine noted in the bag and hanged below bladder level. No moaning or grimacing noted. No signs of acute distress or SOB noted. Safety precautions in place with 3 side rails up, wheels locked, bed alarm on and in lowest level. Seizure pads in place. Will continue to monitor.
[2019-07-03] MEDS: EMOLLIENT COMBINATION NO.73 78 GM CREAM..G. TP SCH (21:05)
[2019-07-03] MEDS: HYDROCORTISONE 1%, 28.35 GM TOPICAL CREAM TP SCH (21:05)
[2019-07-03] MEDS: LATANOPROST 2.5 ML DROPS (XALATAN) OP SCH (21:06)
[2019-07-03] MEDS: INSULIN GLARGINE 100 UNITS/ML 10 ML VIAL SUBCUT SCH (21:16)
--- NOTE | 2019-07-03 21:20 | NUR ---
ROUNDS Assessed for bowel sounds and is active upon auscultation. No residual upon aspiration. All due meds given and pt tolerated well. Aspiration precaution maintained with head elevated at 45 degrees. No signs of acute distress noted. G-Tube feeding is infusing well. Safety precautions in place. Will continue to monitor.
[2019-07-04 00:49] VITALS: BP_SYST 141
[2019-07-04] MEDS: IPRATROPIUM BROM 0.5 MG/2.5 ML VIAL.NEB (ATROVENT) INH SCH ×4 (01:37→19:42)
[2019-07-04] MEDS: LevALBUTEROL HCL 1.25 MG/0.5 ML *CONC.* VIAL.NEB (XOPENEX CONC.) INH SCH ×4 (01:37→19:42)
[2019-07-04 05:27] VITALS: BP_SYST 153
[2019-07-04] MEDS: LEVOTHYROXINE SODIUM 0.025 MG TABLET GT SCH (05:29)
[2019-07-04] MEDS: DILTIAZEM HCL 90 MG TABLET GT SCH ×3 (05:29→17:37)
[2019-07-04] MEDS: HYDROCORTISONE SOD SUCC 100 MG/2 ML VIAL IVP SCH ×2 (05:30→17:36)
[2019-07-04] MEDS: INSULIN LISPRO SLIDING SCALE 100 UNITS/ML VIAL (humaLOG) SUBCUT PRN (05:30)
--- NOTE | 2019-07-04 06:24 | NUR ---
CLOSING NOTES Pt is resting in bed with both eyes closed, with visible chest rise and fall with non-labored breathing noted. Pt maintained on O2 inhalation via T-bar with FiO2 at 40%. G-tube feeding is infusing well. Kept laureano bag hanged below bladder level. No moaning or grimacing noted. No signs of acute distress or SOB noted. All needs attended throughout the shift. Safety precautions maintained with 3 side rails up, wheels locked, bed alarm on and in lowest level. Seizure pads in place. Father at bedside. Will endorse to day shift nurse.
[2019-07-04 07:01] LABS: BASOPHILS # (AUTO) 0.1 K/uL (0.0-0.2); BASOPHILS % (AUTO) 0.6 % (0.0-2.0); EOSINOPHILS # (AUTO) 0.6 K/uL (0.0-0.4); EOSINOPHILS % (AUTO) 3.6 % (0.0-4.0); HEMOGLOBIN 10.8 g/dL (14.0-18.0); LYMPHOCYTES # (AUTO) 2.9 K/uL (1.0-5.5); LYMPHOCYTES % (AUTO) 17.5 % (20.5-51.5); MEAN CORPUSCULAR HEMOGLOBIN 30 pg (27-31); MEAN CORPUSCULAR HGB CONC 33 % (32-36); MEAN CORPUSCULAR VOLUME 91 fL (79.0-98.0); MONOCYTES # (AUTO) 0.9 K/uL (0.0-1.0); MONOCYTES % (AUTO) 5.5 % (1.7-9.3); NEUTROPHILS # (AUTO) 11.9 K/uL (1.8-7.7); NEUTROPHILS % (AUTO) 72.8 % (40.0-70.0); PLATELET COUNT (AUTO) 357 K/uL (130-430); RED BLOOD CELL COUNT(AUTO) 3.64 MIL/uL (4.2-6.2); RED CELL DISTRIBUTION WIDTH 15.8 % (9.0-15.0); WHITE BLOOD COUNT (AUTO) 16.3 K/uL (4.8-10.8)
[2019-07-04 07:23] LABS: CALCIUM 9.3 mg/dL (8.4-11.0); CREATININE 1.75 mg/dL (0.55-1.30)
--- NOTE | 2019-07-04 08:00 | NUR ---
OPENING NOTES Received pt from night nurse. Pt is awake , non-verbal, and lying in bed. Vitals wnl, no fever. Pt on O2 via trach to via T-bar with FiO2 at 40%. Pt with right internal jugular bradley/pigtail noted with clean, dry and intact dressing. Pt with G-tube feeding with Nepro at 30ml/hr and infusing well. Pt with laureano catheter with yellow urine noted in the bag and hanged below bladder level. No moaning or grimacing noted. No signs of acute distress or SOB noted. Safety precautions in place with 3 side rails up, wheels locked, bed alarm on and in lowest level. Seizure pads in place. Will continue to monitor.
[2019-07-04 08:04] VITALS: BP_SYST 133
[2019-07-04] MEDS: BACLOFEN 10 MG TABLET GT SCH ×3 (09:01→21:04)
[2019-07-04] MEDS: PARoxetine HCL 20 MG TABLET GT SCH ×2 (09:01→21:04)
[2019-07-04] MEDS: FOLIC ACID 1 MG TABLET GT SCH (09:01)
[2019-07-04] MEDS: PANTOPRAZOLE SODIUM 40 MG/VIAL (PROTONIX) IVP SCH (09:02)
[2019-07-04] MEDS: CHOLECALCIFEROL (VITAMIN D3) 2,000 UNIT TABLET GT SCH (09:02)
[2019-07-04] MEDS: METOPROLOL TARTRATE 50 MG TABLET GT SCH ×2 (09:02→21:04)
[2019-07-04] MEDS: CITRIC ACID/SODIUM CITRATE 30 ML UDC GT SCH ×3 (09:03→21:08)
[2019-07-04] MEDS: POTASSIUM CHLORIDE 20 MEQ/PKT PACKET PO SCH (09:03)
[2019-07-04] MEDS: CHOLESTYRAMINE/SUCROSE 4 GM/PACKET GT SCH (09:03)
[2019-07-04] MEDS: VALPROIC ACID ORAL SYRUP 250 MG/5 ML UDC GT SCH ×4 (09:03→21:07)
[2019-07-04] MEDS: LevETIRAcetam 500 MG/5 ML UDC ORAL LIQUID GT SCH ×2 (09:04→21:05)
[2019-07-04] MEDS: ENOXAPARIN SODIUM 30 MG/0.3 ML SYRINGE SUBCUT SCH (09:08)
[2019-07-04] MEDS: NYSTATIN 15 GM TOPICAL POWDER TP SCH (09:10)
[2019-07-04] MEDS: FLUDROCORTISONE ACETATE 0.1 MG TABLET( FLORINEF) GT SCH (09:15)
--- NOTE | 2019-07-04 12:04 | NUR ---
12 noon medication given, pt and medications scanned but computer turned off suddenly, all containers of medications discarded already. Addendum: 07/04/19 at 1836 by Juan Menendez RN All meds documented as non scanned medications.
[2019-07-04 12:05] VITALS: BP_SYST 134
[2019-07-04] MEDS: cefTRIAXone 1 GM in D5W 50 ML IV SCH (12:13)
[2019-07-04] MEDS: FLUCONAZOLE 200 mg/ NS 100 ML IV SCH (13:13)
--- NOTE | 2019-07-04 13:38 | NUR ---
PT'S MOTHER AT BEDSIDE, UPDATED HER ON POC AND PRESENT STATUS OF PT.
[2019-07-04 16:10] VITALS: BP_SYST 143
[2019-07-04] MEDS: LORazepam 2 MG/ML VIAL IVP PRN (16:10)
--- NOTE | 2019-07-04 18:30 | NUR ---
CLOSING NOTES, PT HAS BEEN STABLE THE WHOLE SHIFT, NO FEVER, VITALS WNL. PT'S MON WAS AT BEDSIDE THIS AFTERNOON. PT'S MOM UPDATED WITH PATIENTS CONDITION AND POC. PT GIVEN X1 ATIVAN FOR LIGHT AGITATION. WILL ENDORSE TO NIGHT NURSE.
--- NOTE | 2019-07-04 19:30 | NUR ---
Received bedside report from am shift RN. Pt is awake, eyes open, nonverbal, obtunded. Pt is unable to make needs known to staff. Hourly rounding is indicated to assess for needs. Pt has respiratory failure and is on a T-bar with 10L 02 and 40% FI02. Pt i SR on the monitor with occasional PACs. Pt has renal failure HD MWF. Pt has RIJ Central Eren Catheter with a piggyback. IV is running TKO NS at this time. Edema located at R arm, R leg and ankle. Pt continues on Seizure precaution. Pt is on Nephro G-tube feeding at 30 ml/hr. Cont. to monitor, call light in easy reach
[2019-07-04] MEDS: HYDROCORTISONE 1%, 28.35 GM TOPICAL CREAM TP SCH (21:14)
[2019-07-04] MEDS: EMOLLIENT COMBINATION NO.73 78 GM CREAM..G. TP SCH (21:14)
[2019-07-04] MEDS: INSULIN GLARGINE 100 UNITS/ML 10 ML VIAL SUBCUT SCH (22:14)
[2019-07-04] MEDS: LATANOPROST 2.5 ML DROPS (XALATAN) OP SCH (22:16)
--- NOTE | 2019-07-05 | NUR ---
Pt resting in bed with his father at bedside, in lounge chair. Pt's b/s 150 at midnight. RT in for breathing treatments, suctioning. Pt kept clean and dry. Pt tolerated well. Cont. to monitor, fall precaution in place.
[2019-07-05 00:49] VITALS: BP_SYST 158
[2019-07-05] MEDS: IPRATROPIUM BROM 0.5 MG/2.5 ML VIAL.NEB (ATROVENT) INH SCH ×4 (01:10→18:54)
[2019-07-05] MEDS: LevALBUTEROL HCL 1.25 MG/0.5 ML *CONC.* VIAL.NEB (XOPENEX CONC.) INH SCH ×4 (01:10→18:54)
[2019-07-05] MEDS: DILTIAZEM HCL 90 MG TABLET GT SCH ×4 (01:18→17:50)
--- NOTE | 2019-07-05 04:00 | NUR ---
Pt resting comfortably in bed. Pt kept clean and dry, repositioned every two hours for comfort and to keep bony prominences off bed. Father is sleeping at bedside. All needs met.
[2019-07-05] MEDS: HYDROCORTISONE SOD SUCC 100 MG/2 ML VIAL IVP SCH ×2 (06:14→17:50)
[2019-07-05] MEDS: LEVOTHYROXINE SODIUM 0.025 MG TABLET GT SCH (06:18)
[2019-07-05 08:20] VITALS: BP_SYST 144
[2019-07-05] MEDS: LevETIRAcetam 500 MG/5 ML UDC ORAL LIQUID GT SCH ×2 (09:00→22:51)
[2019-07-05] MEDS: CHOLESTYRAMINE/SUCROSE 4 GM/PACKET GT SCH (09:00)
[2019-07-05] MEDS: VALPROIC ACID ORAL SYRUP 250 MG/5 ML UDC GT SCH ×4 (09:00→22:49)
[2019-07-05] MEDS: CITRIC ACID/SODIUM CITRATE 30 ML UDC GT SCH ×3 (09:00→22:50)
[2019-07-05] MEDS: NYSTATIN 15 GM TOPICAL POWDER TP SCH (09:00)
[2019-07-05] MEDS: CHOLECALCIFEROL (VITAMIN D3) 2,000 UNIT TABLET GT SCH (09:00)
[2019-07-05] MEDS: ENOXAPARIN SODIUM 30 MG/0.3 ML SYRINGE SUBCUT SCH (09:00)
[2019-07-05] MEDS: FOLIC ACID 1 MG TABLET GT SCH (09:00)
[2019-07-05] MEDS: BACLOFEN 10 MG TABLET GT SCH ×3 (09:00→22:48)
[2019-07-05] MEDS: FLUDROCORTISONE ACETATE 0.1 MG TABLET( FLORINEF) GT SCH (09:00)
[2019-07-05] MEDS: PANTOPRAZOLE SODIUM 40 MG/VIAL (PROTONIX) IVP SCH (09:49)
[2019-07-05] MEDS: POTASSIUM CHLORIDE 20 MEQ/PKT PACKET PO SCH (09:50)
[2019-07-05] MEDS: PARoxetine HCL 20 MG TABLET GT SCH ×2 (09:50→22:46)
[2019-07-05] MEDS: METOPROLOL TARTRATE 50 MG TABLET GT SCH ×2 (09:52→22:48)
[2019-07-05] MEDS: MORPHINE 2 MG/ML INJ. SYRINGE IVP PRN (10:42)
--- NOTE | 2019-07-05 10:46 | NUR ---
pt given pain medication. pt's mother at bedside.
[2019-07-05] MEDS: cefTRIAXone 1 GM in D5W 50 ML IV SCH (11:58)
[2019-07-05] MEDS: INSULIN LISPRO SLIDING SCALE 100 UNITS/ML VIAL (humaLOG) SUBCUT PRN ×2 (11:59→23:25)
[2019-07-05 12:04] VITALS: BP_SYST 148
[2019-07-05] MEDS: FLUCONAZOLE 200 mg/ NS 100 ML IV SCH (13:16)
--- NOTE | 2019-07-05 14:28 | NUR ---
Case mgt: [facility] is still able to accept pt per Kendall Coleman liaison--JAYMIE KIM
[2019-07-05 16:10] VITALS: BP_SYST 118
--- NOTE | 2019-07-05 18:40 | NUR ---
CLOSING: PT HAS BEEN STABLE THE WHOLE SHIFT. PT TOLERATING HIS G-TUBE FEEDING. ALL IV ABX AND G-T MEDS GIVEN.. VITALS WNL, NO FEVER. STILL WAITING FOR HD RN. TO COME , HOUSE SUP REMINDED THAT HD RN HAS NOT COME BY YET.
--- NOTE | 2019-07-05 19:20 | NUR ---
OPENING NOTES Received patient, resting, A/Ox1, nonverbal, no respiratory distress, T-Bar, Right IJ Eren, patent, dressing c/d/i, saline lock. Lema catheter draining by gravity, no kinks, no loops, bag not touching the floor, HOB elevated for G tube feeding, Gtube patent, feeding running. Seizure pads in place, was endorsed that patient is waiting for dialysis for today, has bled when suctioned before, possible permacath placement for Saturday, will continue to monitor. Call light within reach, patient unable to display usage of call light, so rounds will be done, bed alarm on, bed at lowest position.
--- NOTE | 2019-07-05 19:40 | NUR ---
SPOKE TO MOTHER OF PATIENT, EXPLAINED THAT PATIENT MAY BE HAVING A PROCEDURE FOR PERMACATH ON SATURDAY, DIALYSIS IS CURRENTLY BEING DONE.
[2019-07-05 20:00] VITALS: BP_SYST 120
--- NOTE | 2019-07-05 22:40 | NUR ---
DIALYSIS ENDED, PATIENT TOLERATED WELL, 3L OUT, VITALS WITHIN NORMAL LIMITS. Will provide 2100 medications late, as patient was in dialysis. Will continue to monitor.
[2019-07-05] MEDS: HYDROCORTISONE 1%, 28.35 GM TOPICAL CREAM TP SCH (22:51)
[2019-07-05] MEDS: EMOLLIENT COMBINATION NO.73 78 GM CREAM..G. TP SCH (22:52)
[2019-07-05] MEDS: LATANOPROST 2.5 ML DROPS (XALATAN) OP SCH (22:53)
[2019-07-05] MEDS: INSULIN GLARGINE 100 UNITS/ML 10 ML VIAL SUBCUT SCH (23:22)
[2019-07-06 00:37] VITALS: BP_SYST 134
[2019-07-06] MEDS: LevALBUTEROL HCL 1.25 MG/0.5 ML *CONC.* VIAL.NEB (XOPENEX CONC.) INH SCH ×4 (01:05→19:00)
[2019-07-06] MEDS: IPRATROPIUM BROM 0.5 MG/2.5 ML VIAL.NEB (ATROVENT) INH SCH ×4 (01:05→19:00)
--- NOTE | 2019-07-06 01:10 | NUR ---
Patient is resting, family at bedside, no respiratory distress observed, Cardizem provided, will monitor blood pressure.
[2019-07-06] MEDS: DILTIAZEM HCL 90 MG TABLET GT SCH ×5 (01:20→23:41)
--- NOTE | 2019-07-06 02:25 | NUR ---
SBP OF 120, no signs of congestion, O2 saturation of 100, resting comfortably, family at bedside, will continue to monitor.
--- NOTE | 2019-07-06 04:11 | NUR ---
Patient is resting, eyes closed, no signs of acute respiratory distress observed, linens changed. Will continue to monitor.
[2019-07-06] MEDS: LEVOTHYROXINE SODIUM 0.025 MG TABLET GT SCH (05:05)
[2019-07-06] MEDS: HYDROCORTISONE SOD SUCC 100 MG/2 ML VIAL IVP SCH ×2 (05:15→17:50)
--- NOTE | 2019-07-06 07:16 | NUR ---
CLOSING NOTES Received patient, resting, eyes closed. 10L T-bar, no signs of acute respiratory distress observed. IV site patent, dressings c/d/i. Lema catheter intact, no kinks, no loops, bag not touching the floor, call light within reach, bed alarm on, bed at lowest position. Trying to contact Dr. Benitez to confirm for the procedure, patient on NPO, G-tube feeding stopped since 0500. Will endorse care to oncoming shift.
[2019-07-06 07:42] LABS: BASOPHILS # (AUTO) 0.1 K/uL (0.0-0.2); BASOPHILS % (AUTO) 0.6 % (0.0-2.0); EOSINOPHILS # (AUTO) 0.3 K/uL (0.0-0.4); EOSINOPHILS % (AUTO) 1.5 % (0.0-4.0); HEMATOCRIT 32.5 % (36-54); HEMOGLOBIN 10.7 g/dL (14.0-18.0); LYMPHOCYTES # (AUTO) 1.7 K/uL (1.0-5.5); LYMPHOCYTES % (AUTO) 8.2 % (20.5-51.5); MEAN CORPUSCULAR HEMOGLOBIN 30 pg (27-31); MEAN CORPUSCULAR HGB CONC 33 % (32-36); MEAN CORPUSCULAR VOLUME 90 fL (79.0-98.0); MONOCYTES # (AUTO) 1.6 K/uL (0.0-1.0); MONOCYTES % (AUTO) 7.6 % (1.7-9.3); NEUTROPHILS # (AUTO) 17.1 K/uL (1.8-7.7); NEUTROPHILS % (AUTO) 82.1 % (40.0-70.0); PLATELET COUNT (AUTO) 451 K/uL (130-430); RED BLOOD CELL COUNT(AUTO) 3.62 MIL/uL (4.2-6.2); RED CELL DISTRIBUTION WIDTH 15.3 % (9.0-15.0); WHITE BLOOD COUNT (AUTO) 20.9 K/uL (4.8-10.8)
[2019-07-06] MEDS ORDERED: POLYMYXIN 500,000/BACIT.10,000 UNITS in NS IRR 1 L IR ONE ×2 (07:52→20:26)
[2019-07-06 07:57] LABS: CALCIUM 9.6 mg/dL (8.4-11.0); CREATININE 2.04 mg/dL (0.55-1.30); PHOSPHORUS 2.8 mg/dL (2.7-4.5); POTASSIUM 3.9 mmol/L (3.5-5.1)
[2019-07-06 08:00] LABS: PROTHROMBIN TIME 9.6 SECS (9.5-12.5)
[2019-07-06] MEDS: PARoxetine HCL 20 MG TABLET GT SCH ×2 (09:00→22:02)
[2019-07-06] MEDS: METOPROLOL TARTRATE 50 MG TABLET GT SCH ×2 (09:00→22:02)
[2019-07-06] MEDS: FLUDROCORTISONE ACETATE 0.1 MG TABLET( FLORINEF) GT SCH (09:00)
[2019-07-06] MEDS: POTASSIUM CHLORIDE 20 MEQ/PKT PACKET PO SCH (09:00)
[2019-07-06] MEDS: FOLIC ACID 1 MG TABLET GT SCH (09:00)
[2019-07-06] MEDS: NYSTATIN 15 GM TOPICAL POWDER TP SCH (09:00)
[2019-07-06] MEDS: BACLOFEN 10 MG TABLET GT SCH ×2 (09:00→22:02)
[2019-07-06] MEDS: CITRIC ACID/SODIUM CITRATE 30 ML UDC GT SCH ×2 (09:00→22:03)
[2019-07-06] MEDS: LevETIRAcetam 500 MG/5 ML UDC ORAL LIQUID GT SCH ×2 (09:00→22:03)
[2019-07-06] MEDS: CHOLECALCIFEROL (VITAMIN D3) 2,000 UNIT TABLET GT SCH (09:00)
[2019-07-06] MEDS: CHOLESTYRAMINE/SUCROSE 4 GM/PACKET GT SCH (09:00)
[2019-07-06] MEDS: VALPROIC ACID ORAL SYRUP 250 MG/5 ML UDC GT SCH ×2 (09:00→22:04)
--- NOTE | 2019-07-06 09:00 | NUR ---
ASSUMPTION OF CARE: RECEIVED PT ASLEEP, AROUSED VIA VERBAL STIMULI, DX:INADEQUATE VENTILATION, R/T PNEUMONIA, BREATH SOUNDS ARE RHONCHI, BREATHING IS UNLABORED, IV SITE INTACT, PATENT, NO REDNESS OR SWELLING TO RIJ, AFEBRILE, VSS, NO INDICATION OF DISTRESS OR DISCOMFORT, RESTING ON AIR MATTRESS, POSITIONED FOR COMFORT, WILL CONT' TO MONITOR AND ASSESS.
[2019-07-06] MEDS: PANTOPRAZOLE SODIUM 40 MG/VIAL (PROTONIX) IVP SCH (10:20)
[2019-07-06 12:23] VITALS: BP_SYST 119
--- NOTE | 2019-07-06 12:31 | NUR ---
DC Planning: F/U : [facility]: Per Flakita, the pt is not accepted. : [facility] sub acute, [place] tel # [phone] < Waldemar to call me back. Case in review. Addendum: 07/06/19 at 1455 by Winsome Conley RN >> Per Waldemar at [facility] sub [facility]: there is no bed available, so that the pt is denied for admission at this time. >> Updated sue Barney at [employer] # [phone] and Nathalie caregivers homecare/[employer] and Ashley /[facility]ason[facility] that so far, there is no accepting LTAC or Sub Acute. Izabel/mother confirmed no transfer to [facility] all location. Izabel aware that [facility] does not guarantee payment for inpatient stay,( days to be determined). Per [place] [facility] will remove pt off the admission list today. Izabel made aware. >> SUE will contact dr. Peterson to reeval dcp to sub acute vs home with home health /out patient HD. Addendum: 07/06/19 at 1509 by Winsome Conley RN Barriers: elevated WBC 20.8 today and no accepting LTAC and Sub Acute. Dr Peterson made aware, he order to look for sub acute and HD out patient. >> s/w Izabel again for dcp to contracted sub acute vs home with HH and HD out patient. Izabel agreed with POC.
--- NOTE | 2019-07-06 14:00 | NUR ---
GLUCOSE MONITORING: BLOOD SUGAR LEVEL=83, NO COVERAGE REQUIRED, WILL CONT' WITH POC.
[2019-07-06] MEDS: FLUCONAZOLE 200 mg/ NS 100 ML IV SCH (14:11)
[2019-07-06] MEDS: CEFEPIME 1 GM in D5W 50 ML IV SCH (14:11)
[2019-07-06 16:14] VITALS: BP_SYST 159
--- NOTE | 2019-07-06 18:00 | NUR ---
GLUCOSE MONITORING: BLOOD SUGAR LEVEL=73, NO COVERAGE REQUIRED, WILL CONT' WITH POC.
[2019-07-06] MEDS ORDERED: fentaNYL CITRATE/PF 100 MCG/2 ML AMP IVP PRN ×2 (19:00)
[2019-07-06] MEDS ORDERED: ONDANSETRON HCL 4 MG/2 ML VIAL IVP PRN (19:00)
--- NOTE | 2019-07-06 19:25 | NUR ---
OPENING NOTES PATIENT OUT OF ROOM FOR SCHEDULED PEG ACCOMPANIED BY OR NURSE AND DR. POWERS. Addendum: 07/07/19 at 0112 by Asha Carr RN FOR SCHEDULED PERMACATH PLACEMENT NOT PEG
[2019-07-06] MEDS ORDERED: BUPIVACAINE /EPINEPHRINE/PF 0.5% 30 ML VIAL INJ ONE (20:55)
[2019-07-06] MEDS ORDERED: PROPOFOL 200MG/ 20ML VIAL (DIPRIVAN) IV ONE (20:55)
[2019-07-06] MEDS ORDERED: NS 100 ML BAG ONE (20:55)
[2019-07-06] MEDS ORDERED: MIDAZOLAM HCL 5 MG/ML VIAL (VERSED) IV ONE (20:55)
[2019-07-06] MEDS ORDERED: HEPARIN SODIUM, PORCINE 10,000 UNITS/ 10 ML VIAL ONE (20:55)
[2019-07-06] MEDS: INSULIN GLARGINE 100 UNITS/ML 10 ML VIAL SUBCUT SCH (21:00)
[2019-07-06 21:30] VITALS: BP_SYST 150
--- NOTE | 2019-07-06 21:30 | NUR ---
BACK TO ROOM PATIENT BACK FROM PACU. VITAL SIGNS STABLE. RT SCV PERMACATH DRESSING CLEAN/DRY/INTACT NO BLEEDING. PATIENT AROUSABLE TO NAME. BREATHING UNLABORED ON TRACH COLLAR 10L. BED IN LOWEST LOCKED POSITION. SEIZURE PRECAUTIONS IN PLACED.
--- NOTE | 2019-07-06 22:04 | NUR ---
MED PASS PATIENT DUE MEDICATIONS GIVEN. VITAL SIGNS STABLE. HS CARE PROVIDED. PATIENT CHUX CHANGED.
[2019-07-06] MEDS: EMOLLIENT COMBINATION NO.73 78 GM CREAM..G. TP SCH (22:07)
[2019-07-06] MEDS: HYDROCORTISONE 1%, 28.35 GM TOPICAL CREAM TP SCH (22:08)
[2019-07-06] MEDS: LATANOPROST 2.5 ML DROPS (XALATAN) OP SCH (22:24)
[2019-07-06] MEDS: cloNIDine HCL 0.3 MG/24 HR PATCH.TDWK TD SCH (22:42)
--- NOTE | 2019-07-06 23:00 | NUR ---
FEEDING GT FEEDING RESUMED. PER DR. RADHAMES BARNES TO RESTART FEEDING.
[2019-07-07 00:27] VITALS: BP_SYST 126
[2019-07-07] MEDS: LevALBUTEROL HCL 1.25 MG/0.5 ML *CONC.* VIAL.NEB (XOPENEX CONC.) INH SCH ×4 (00:52→19:28)
[2019-07-07] MEDS: IPRATROPIUM BROM 0.5 MG/2.5 ML VIAL.NEB (ATROVENT) INH SCH ×4 (00:52→19:27)
--- NOTE | 2019-07-07 01:00 | NUR ---
ROUNDS PATIENT RESTING IN BED AWAKE. BREATHING UNLABORED. FATHER AT BEDSIDE.
--- NOTE | 2019-07-07 04:20 | NUR ---
BM PATIENT HAD SOFT BM. AM CARE DONE. PATIENT CHUX CHANGED. APPLIED Z GUARD TO SACRAL AREA.
[2019-07-07] MEDS: HYDROCORTISONE SOD SUCC 100 MG/2 ML VIAL IVP SCH ×2 (05:34→18:04)
[2019-07-07] MEDS: LEVOTHYROXINE SODIUM 0.025 MG TABLET GT SCH (05:35)
[2019-07-07] MEDS: DILTIAZEM HCL 90 MG TABLET GT SCH ×4 (05:37→23:57)
--- NOTE | 2019-07-07 06:37 | NUR ---
CLOSING NOTES PATIENT GT FEEDING TOLERATED NO RESIDUAL THROUGHOUT THE NIGHT. NO DISTRESS ON T- COLLAR 10L. PERMACATH DRESSING DRY/INTACT/NO BLEEDING TO SITE. PATIENT NEEDS ATTENDED. FATHER AT BEDSIDE.
[2019-07-07 07:23] LABS: BASOPHILS # (AUTO) 0.1 K/uL (0.0-0.2); BASOPHILS % (AUTO) 0.7 % (0.0-2.0); EOSINOPHILS # (AUTO) 0.4 K/uL (0.0-0.4); EOSINOPHILS % (AUTO) 2.6 % (0.0-4.0); HEMATOCRIT 29.9 % (36-54); LYMPHOCYTES % (AUTO) 13.1 % (20.5-51.5); MEAN CORPUSCULAR HEMOGLOBIN 30 pg (27-31); MEAN CORPUSCULAR HGB CONC 33 % (32-36); MEAN CORPUSCULAR VOLUME 90 fL (79.0-98.0); MONOCYTES # (AUTO) 1.2 K/uL (0.0-1.0); MONOCYTES % (AUTO) 7.5 % (1.7-9.3); NEUTROPHILS # (AUTO) 11.9 K/uL (1.8-7.7); NEUTROPHILS % (AUTO) 76.1 % (40.0-70.0); PLATELET COUNT (AUTO) 425 K/uL (130-430); RED BLOOD CELL COUNT(AUTO) 3.32 MIL/uL (4.2-6.2); RED CELL DISTRIBUTION WIDTH 15.5 % (9.0-15.0); WHITE BLOOD COUNT (AUTO) 15.7 K/uL (4.8-10.8)
[2019-07-07 08:00] VITALS: BP_SYST 134
--- NOTE | 2019-07-07 08:00 | NUR ---
ASSUMPTION OF CARE: RECEIVED PT ASLEEP, AROUSED VIA VERBAL STIMULI, DX:INADEQUATE VENTILATION, R/T PNEUMONIA, BREATH SOUNDS ARE RHONCHI, BREATHING IS UNLABORED, HAS PERMACATH TO LEFT CHESTWALL, INTACT NO REDNESS OR SWELLING NOTEDIV SITE INTACT, PATENT, NO REDNESS OR SWELLING, AFEBRILE, VSS, NO INDICATION OF DISTRESS OR DISCOMFORT, RESTING ON AIR MATTRESS, POSITIONED FOR COMFORT, WILL CONT' TO MONITOR AND ASSESS.
[2019-07-07] MEDS: CHOLESTYRAMINE/SUCROSE 4 GM/PACKET GT SCH (08:51)
[2019-07-07] MEDS: POTASSIUM CHLORIDE 20 MEQ/PKT PACKET PO SCH (08:51)
[2019-07-07] MEDS: CHOLECALCIFEROL (VITAMIN D3) 2,000 UNIT TABLET GT SCH (08:53)
[2019-07-07] MEDS: PARoxetine HCL 20 MG TABLET GT SCH ×2 (08:53→20:22)
[2019-07-07] MEDS: METOPROLOL TARTRATE 50 MG TABLET GT SCH ×2 (08:53→20:23)
[2019-07-07] MEDS: FOLIC ACID 1 MG TABLET GT SCH (08:53)
[2019-07-07] MEDS: BACLOFEN 10 MG TABLET GT SCH ×3 (08:54→20:22)
[2019-07-07] MEDS: CITRIC ACID/SODIUM CITRATE 30 ML UDC GT SCH ×3 (08:55→20:23)
[2019-07-07] MEDS: PANTOPRAZOLE SODIUM 40 MG/VIAL (PROTONIX) IVP SCH (08:55)
[2019-07-07] MEDS: VALPROIC ACID ORAL SYRUP 250 MG/5 ML UDC GT SCH ×4 (08:57→20:22)
[2019-07-07] MEDS: LevETIRAcetam 500 MG/5 ML UDC ORAL LIQUID GT SCH ×2 (08:58→20:22)
[2019-07-07] MEDS ORDERED: ENOXAPARIN SODIUM 30 MG/0.3 ML SYRINGE SUBCUT SCH (09:00)
--- NOTE | 2019-07-07 09:00 | NUR ---
PEDORTHIST: MORNING MEDS GIVEN, PER ORDERED BY Ovi, TOLERATED WELL, WILL CONT' TO MONITOR AND ASSESS
[2019-07-07] MEDS: FLUDROCORTISONE ACETATE 0.1 MG TABLET( FLORINEF) GT SCH (09:03)
[2019-07-07] MEDS: NYSTATIN 15 GM TOPICAL POWDER TP SCH (09:03)
--- NOTE | 2019-07-07 10:00 | NUR ---
DIALYSIS TX: DIALYSIS NURSE AT BEDSIDE FOR ORDERED TX, MOTHER OF THE PT AT BEDSIDE WELL, INFORMED DIALYSIS NURSE THAT MORNING MEDS WERE GIVEN, WILL CONT' TO MONITOR AND ASSESS.
--- NOTE | 2019-07-07 12:00 | NUR ---
GLUCOSE MONITORING: BLOOD SUGAR DKDII=[id number], 2 UNIT REGULAR INSULIN COVERAGE GIVEN, TOLERATED WELL, WILL CONT' WITH POC.
[2019-07-07] MEDS: FLUCONAZOLE 200 mg/ NS 100 ML IV SCH (12:19)
[2019-07-07] MEDS: CEFEPIME 1 GM in D5W 50 ML IV SCH (12:19)
[2019-07-07] MEDS: HEPARIN SODIUM,PORCINE 5000 UNITS/ML VIAL SUBCUT SCH (12:22)
[2019-07-07] MEDS: INSULIN LISPRO SLIDING SCALE 100 UNITS/ML VIAL (humaLOG) SUBCUT PRN ×2 (12:27→23:53)
[2019-07-07 12:42] VITALS: BP_SYST 138
--- NOTE | 2019-07-07 13:30 | NUR ---
Discharge Planning: DCP faxed pt referral to [facility] (f [phone] p [phone]) DCP to follow up.
--- NOTE | 2019-07-07 13:42 | NUR ---
Nutrition F/U RD reviewed pt's current EMR including diet Hx, physician notes, nursing notes, pertinent labs/meds/procedures, care trends and care activity. Current Nutrition Support: Nepro at 30 ml/hr, via GT. Provides: 1296 kcal/day, 58 gm protein/day, and 523 ml free water/day Meets: 90% of upper end of estimated caloric needs and 98% of lower end of estimated protein needs Subjective information: Pt seen in bed, +trach to T-bar. EN infusing. 07/06/2019: S/P placement of tunneled central venous dialysis catheter. Pt is due for HD today. Last BM 07/07. Per RN report, pt is tolerating EN regimen and reported no residual this morning. Labs: 07/06 Na 134L, K 3.9WNL, BG 112H, BUN 28H, Cre 2.04H Estimated Energy Expenditure (kcals/day) 6921-5559 kcal/day (25-30kcal/kg CBW for critical illness) NEW Estimated Protein Required (g/day) 59-67 gm/day (1.2-1.4 gm/kg CBW for Renal Dz, dialysis) Estimated Fluid Required (l/day) Deferred to MD d/t ARF Problem/Etiology/Signs/Symptoms Altered GI function r/t medication AEB flagyl and reports of diarrhea per nursing staff *no longer applicable Altered nutrition related lab values related to renal dysfunction as evidenced by abnormal BUN, CRE, and eGFR lab values. *ongoing/modified* Expected Outcomes/Goals Monitor EN support and intake w/ goal of pt meeting at least 75% of estimated nutritional needs, labs trending WNL, normal GI function, skin integrity/wt maintenance. Dietitian Recommendations * Continue: Nepro at 30 ml/hr via GT Provides: 1296 kcal/day, 58 gm protein/day, and 523 ml free water/day Meets: 90% of upper end of estimated caloric needs and 98% of lower end of estimated protein needs Follow Up Moderate Risk: F/U in 3-5 days
--- NOTE | 2019-07-07 13:49 | NUR ---
Dietitian Recommendations * Continue: Nepro at 30 ml/hr via GT Provides: 1296 kcal/day, 58 gm protein/day, and 523 ml free water/day Meets: 90% of upper end of estimated caloric needs and 98% of lower end of estimated protein needs Please see Nutrition F/U note PRISON, RD
--- NOTE | 2019-07-07 15:50 | NUR ---
Discharge Planning: RETORT FIRER met with pt's mother at bedside to further discuss discharge planning. Pt's mother states that she does not want pt to go to any [place] facility. Pt's mother states that she is open to a sub acute unit that will allow pt to go to dialysis. RETORT FIRER spoke with pt's mother to see if she can find out what pt's transportation benefits are for dialysis transportation; pt's mother states that she will speak with the pt's father who holds pt's insurance to see if he can find out pt's transportation benefits. RETORT FIRER alerted pt's mother that pt's insurance did send the CM a new list of SNF/Sub Acute units; CM/DC Clothing Room Supervisor/SW will work on finding an accepting sub acute unit. Pt's mother did ask to be notified as soon as a potential accepting facility comes up so that pt's mother can research the facility. Pt's mother states that her end goal is to get pt back home with dialysis. Pt's mother provided RETORT FIRER with a copy of pt's conservatorship paperwork; RETORT FIRER provided the CM with the copy for pt's chart. [facility] has updated CM and DC train planner. RETORT FIRER will remain available for support and will follow up as needed.
[2019-07-07] MEDS: MORPHINE 2 MG/ML INJ. SYRINGE IVP PRN (16:27)
[2019-07-07 17:03] VITALS: BP_SYST 135
--- NOTE | 2019-07-07 18:00 | NUR ---
GLUCOSE MONITORING: BLOOD SUGAR GVPHF=[id number], NO COVERAGE REQUIRED, WILL CONT' WITH POC.
[2019-07-07 19:39] VITALS: BP_SYST 150
--- NOTE | 2019-07-07 19:55 | NUR ---
HS CARE HS CARE DONE. LINENS CHANGED. SKIN CARE RENDERED. APPLIED Z GUARD TO SACRAL AREA.
[2019-07-07] MEDS: LATANOPROST 2.5 ML DROPS (XALATAN) OP SCH (20:24)
[2019-07-07] MEDS: EMOLLIENT COMBINATION NO.73 78 GM CREAM..G. TP SCH (20:24)
[2019-07-07] MEDS: HYDROCORTISONE 1%, 28.35 GM TOPICAL CREAM TP SCH (20:25)
[2019-07-07] MEDS: INSULIN GLARGINE 100 UNITS/ML 10 ML VIAL SUBCUT SCH (20:39)
--- NOTE | 2019-07-07 20:39 | NUR ---
MED PASS PATIENT DUE MEDICATIONS GIVEN. GT FEEDING NO RESIDUAL OBTAINED. VITAL SIGNS STABLE.
--- NOTE | 2019-07-07 23:57 | NUR ---
MED PASS PATIENT DUE MEDICATIONS GIVEN. GTF NO RESIDUAL. VITAL SIGNS STABLE.
[2019-07-08] MEDS: IPRATROPIUM BROM 0.5 MG/2.5 ML VIAL.NEB (ATROVENT) INH SCH ×4 (00:10→19:38)
[2019-07-08] MEDS: LevALBUTEROL HCL 1.25 MG/0.5 ML *CONC.* VIAL.NEB (XOPENEX CONC.) INH SCH ×4 (00:10→19:38)
[2019-07-08 00:33] VITALS: BP_SYST 136
--- NOTE | 2019-07-08 01:51 | NUR ---
ROUNDS PATIENT RESTING IN BED. 02 SAT 100%. NO DISTRESS NOTED.
--- NOTE | 2019-07-08 02:30 | NUR ---
ROUNDS NO DISTRESS NOTED. 02 SAT 100%. FATHER AT BEDSIDE.
--- NOTE | 2019-07-08 04:45 | NUR ---
BM PATIENT HAD SOFT BOWEL MOVEMENT. INCONTINENCE CARE DONE. PATIENT CHUX CHANGED. APPLIED Z GUARD TO SACRAL/PERINEAL AREA.
[2019-07-08] MEDS: LEVOTHYROXINE SODIUM 0.025 MG TABLET GT SCH (05:48)
[2019-07-08] MEDS: HYDROCORTISONE SOD SUCC 100 MG/2 ML VIAL IVP SCH ×2 (05:48→17:03)
[2019-07-08 05:49] VITALS: BP_SYST 134
[2019-07-08] MEDS: DILTIAZEM HCL 90 MG TABLET GT SCH ×4 (05:49→23:49)
--- NOTE | 2019-07-08 06:43 | NUR ---
CLOSING NOTES PATIENT NEEDS ATTENDED. GT FEEDING TOLERATED NO RESIDUAL. NO DISTRESS ON T-COLLAR 40%. FATHER AT BEDSIDE.
[2019-07-08 07:11] LABS: BASOPHILS # (AUTO) 0.1 K/uL (0.0-0.2); BASOPHILS % (AUTO) 0.7 % (0.0-2.0); EOSINOPHILS # (AUTO) 0.3 K/uL (0.0-0.4); EOSINOPHILS % (AUTO) 1.6 % (0.0-4.0); HEMATOCRIT 31.9 % (36-54); HEMOGLOBIN 10.4 g/dL (14.0-18.0); LYMPHOCYTES # (AUTO) 2.6 K/uL (1.0-5.5); LYMPHOCYTES % (AUTO) 15.7 % (20.5-51.5); MEAN CORPUSCULAR HEMOGLOBIN 30 pg (27-31); MEAN CORPUSCULAR HGB CONC 33 % (32-36); MEAN CORPUSCULAR VOLUME 91 fL (79.0-98.0); MONOCYTES # (AUTO) 1.7 K/uL (0.0-1.0); MONOCYTES % (AUTO) 10.3 % (1.7-9.3); NEUTROPHILS # (AUTO) 11.9 K/uL (1.8-7.7); NEUTROPHILS % (AUTO) 71.7 % (40.0-70.0); PLATELET COUNT (AUTO) 443 K/uL (130-430); RED BLOOD CELL COUNT(AUTO) 3.51 MIL/uL (4.2-6.2); RED CELL DISTRIBUTION WIDTH 15.9 % (9.0-15.0); WHITE BLOOD COUNT (AUTO) 16.6 K/uL (4.8-10.8)
[2019-07-08 07:25] LABS: CALCIUM 9.7 mg/dL (8.4-11.0); CREATININE 2.61 mg/dL (0.55-1.30); POTASSIUM 3.5 mmol/L (3.5-5.1)
[2019-07-08 07:26] LABS: PHOSPHORUS 2.7 mg/dL (2.7-4.5)
--- NOTE | 2019-07-08 08:00 | NUR ---
RECEIVED PATIENT IN BED RESTING EYES CLOSED. BREATHING UNLABORED ON T-COLLAR 10 LITERS, FIO2 40% SATURATION 97%.. IVF INFUSING ORDERED. FATHER AT BEDSIDE.UPDATED ABOUT THE POC,. BED IN LOWEST LOCKED POSITION WITH ALARM ON. CALL LIGHT WITH IN EASY REACH.KEEP HOB ELEVATED TO PREVENT ASPIRATION.
[2019-07-08 08:07] VITALS: BP_SYST 121
[2019-07-08] MEDS: NYSTATIN 15 GM TOPICAL POWDER TP SCH (09:00)
--- NOTE | 2019-07-08 10:00 | NUR ---
FREQUENT TRACH SUCTION NEEDED. THICK PINKISH COLOR NOTED.
[2019-07-08] MEDS: VALPROIC ACID ORAL SYRUP 250 MG/5 ML UDC GT SCH ×4 (10:10→22:16)
[2019-07-08] MEDS: CHOLESTYRAMINE/SUCROSE 4 GM/PACKET GT SCH (10:10)
[2019-07-08] MEDS: LevETIRAcetam 500 MG/5 ML UDC ORAL LIQUID GT SCH ×2 (10:11→22:18)
[2019-07-08] MEDS: FOLIC ACID 1 MG TABLET GT SCH (10:12)
[2019-07-08] MEDS: POTASSIUM CHLORIDE 20 MEQ/PKT PACKET PO SCH (10:12)
[2019-07-08] MEDS: METOPROLOL TARTRATE 50 MG TABLET GT SCH ×2 (10:12→22:15)
[2019-07-08] MEDS: FLUDROCORTISONE ACETATE 0.1 MG TABLET( FLORINEF) GT SCH (10:12)
[2019-07-08] MEDS: PANTOPRAZOLE SODIUM 40 MG/VIAL (PROTONIX) IVP SCH (10:12)
[2019-07-08] MEDS: CHOLECALCIFEROL (VITAMIN D3) 2,000 UNIT TABLET GT SCH (10:12)
--- NOTE | 2019-07-08 10:21 | NUR ---
PHYSICAL THERAPY CO-SIGN The Physical Therapy Progress Notes documented by Development Executive have been reviewed. Reviewed/Co-Signed by: Berlin Sandoval, PT Documentation Done by: ANTONIO GUZMÁN PTA Addendum: 07/08/19 at 1024 by Berlin Sandoval PT Amended: Links added.
--- NOTE | 2019-07-08 10:23 | NUR ---
PHYSICAL THERAPY CO-SIGN The Physical Therapy Progress Notes documented by Boom Stick Worker have been reviewed. Reviewed/Co-Signed by: Berlin Sandoval, PT Documentation Done by: ANTONIO GUZMÁN PTA Addendum: 07/08/19 at 1024 by Berlin Sandoval PT Amended: Links added.
[2019-07-08 10:28] VITALS: BP_SYST 121
--- NOTE | 2019-07-08 12:00 | NUR ---
PATIENT RESTING: Patient resting quietly. No acute distress noted. Vital signs within normal range.
--- NOTE | 2019-07-08 12:09 | NUR ---
PHYSICAL THERAPY CO-SIGN The Physical Therapy Progress Notes documented by Building Cleaner have been reviewed. Reviewed/Co-Signed by: Berlin Sandoval PT Documentation Done by: ANTONIO GUZMÁN PTA Addendum: 07/08/19 at 1210 by Berlin Sandoval PT Amended: Links added.
[2019-07-08] MEDS: CEFEPIME 1 GM in D5W 50 ML IV SCH (12:25)
[2019-07-08] MEDS: FLUCONAZOLE 200 mg/ NS 100 ML IV SCH (12:29)
[2019-07-08 12:48] VITALS: BP_SYST 155
[2019-07-08 17:04] VITALS: BP_SYST 149
--- NOTE | 2019-07-08 18:59 | NUR ---
ALL NEEDS METS. NO SIGNIFICANT CHANGES OF CONDITION. IVF KVO RATE. LEFT HAND #20 PATENT. G-TUBE FEEDING NEPHRO @ 30ML/HR NO RESIDUAL NOTED. KEEP HOB ELEVATED TO PREVENT ASPIRATION.
--- NOTE | 2019-07-08 19:10 | NUR ---
OPENING NOTES Received patient, resting, A/Ox1, nonverbal, no respiratory distress, T-Bar. IVF running, dressing c/d/i, saline lock. Lema catheter draining by gravity, no kinks, no loops, bag not touching the floor, HOB elevated for G tube feeding, Gtube patent, feeding running. Seizure pads in place. Permacath in place. Call light within reach, patient unable to display usage of call light, so rounds will be done, bed alarm on, bed at lowest position. Will continue to monitor.
--- NOTE | 2019-07-08 22:10 | NUR ---
Patient medications provided, no signs of distress observed, patient tolerated well. will continue to monitor.
[2019-07-08] MEDS: INSULIN GLARGINE 100 UNITS/ML 10 ML VIAL SUBCUT SCH (22:30)
[2019-07-08] MEDS: INSULIN LISPRO SLIDING SCALE 100 UNITS/ML VIAL (humaLOG) SUBCUT PRN (23:53)
--- NOTE | 2019-07-09 00:08 | NUR ---
Patient is resting, no signs of acute respiratory distress. Gtube running Nepro with 1ml of residual. Family at bedside. Will continue to monitor.
[2019-07-09] MEDS: LevALBUTEROL HCL 1.25 MG/0.5 ML *CONC.* VIAL.NEB (XOPENEX CONC.) INH SCH ×4 (00:21→19:44)
[2019-07-09] MEDS: IPRATROPIUM BROM 0.5 MG/2.5 ML VIAL.NEB (ATROVENT) INH SCH ×4 (00:21→19:44)
[2019-07-09 01:54] VITALS: BP_SYST 145
--- NOTE | 2019-07-09 02:16 | NUR ---
Patient is asleep, eyes closed, rise and fall of chest observed, no signs of distress observed. Will continue to monitor.
--- NOTE | 2019-07-09 04:13 | NUR ---
Patient is resting, eyes closed. No signs of distress observed. will continue to monitor.
[2019-07-09] MEDS: DILTIAZEM HCL 90 MG TABLET GT SCH ×4 (05:45→23:14)
[2019-07-09] MEDS: LEVOTHYROXINE SODIUM 0.025 MG TABLET GT SCH (05:45)
[2019-07-09] MEDS: HYDROCORTISONE SOD SUCC 100 MG/2 ML VIAL IVP SCH ×2 (05:48→17:29)
--- NOTE | 2019-07-09 07:03 | NUR ---
CLOSING NOTES Received patient, resting, A/Ox1, nonverbal, no respiratory distress, T-Bar. IVF running, dressing c/d/i, saline lock. Lema catheter draining by gravity, no kinks, no loops, bag not touching the floor, HOB elevated for G tube feeding, Gtube patent, feeding running. Seizure pads in place. Permacath in place. Call light within reach, patient unable to display usage of call light, so rounds will be done, bed alarm has been on, bed at lowest position. All needs met throughout shift. Addendum: 07/09/19 at 0710 by Mauricio Billingsley RN Will endorse care to oncoming shift.
[2019-07-09 07:14] LABS: BASOPHILS # (AUTO) 0.1 K/uL (0.0-0.2); BASOPHILS % (AUTO) 0.7 % (0.0-2.0); EOSINOPHILS # (AUTO) 0.2 K/uL (0.0-0.4); EOSINOPHILS % (AUTO) 1.2 % (0.0-4.0); HEMATOCRIT 30.4 % (36-54); LYMPHOCYTES % (AUTO) 11.9 % (20.5-51.5); MEAN CORPUSCULAR HEMOGLOBIN 30 pg (27-31); MEAN CORPUSCULAR HGB CONC 33 % (32-36); MEAN CORPUSCULAR VOLUME 90 fL (79.0-98.0); MONOCYTES # (AUTO) 1.6 K/uL (0.0-1.0); MONOCYTES % (AUTO) 9.9 % (1.7-9.3); NEUTROPHILS # (AUTO) 12.6 K/uL (1.8-7.7); PLATELET COUNT (AUTO) 455 K/uL (130-430); RED BLOOD CELL COUNT(AUTO) 3.38 MIL/uL (4.2-6.2); RED CELL DISTRIBUTION WIDTH 15.7 % (9.0-15.0); WHITE BLOOD COUNT (AUTO) 16.5 K/uL (4.8-10.8)
--- NOTE | 2019-07-09 08:00 | NUR ---
RN INITIAL NOTES RECEIVED PATIENT WITH HOB ELEVATED WITH T-BAR CONNECTED WITH 40% FIO2 , SATING 94%, WITH IV HL , WITH GTUBE IN PLACE AND INTACT FEEDING TOLERATED NO SIGN OF ASPIRATION, MEDNOZA CATH INTACT, PATIENT AM MEDS WILL BE GIVEN , VITAL SIGN TAKEN, PIZZA DRIVER HERE ADVISED RN NOT TO GIVE AM BP MEDS TO PREVENT HYPOTENSION
[2019-07-09 08:30] VITALS: BP_SYST 144
[2019-07-09] MEDS: METOPROLOL TARTRATE 50 MG TABLET GT SCH ×2 (09:00→21:57)
[2019-07-09] MEDS: CHOLESTYRAMINE/SUCROSE 4 GM/PACKET GT SCH (09:21)
[2019-07-09] MEDS: PANTOPRAZOLE SODIUM 40 MG/VIAL (PROTONIX) IVP SCH (09:21)
[2019-07-09] MEDS: POTASSIUM CHLORIDE 20 MEQ/PKT PACKET PO SCH (09:22)
[2019-07-09] MEDS: FOLIC ACID 1 MG TABLET GT SCH (09:22)
[2019-07-09] MEDS: LevETIRAcetam 500 MG/5 ML UDC ORAL LIQUID GT SCH ×2 (09:23→21:56)
[2019-07-09] MEDS: VALPROIC ACID ORAL SYRUP 250 MG/5 ML UDC GT SCH ×4 (09:25→21:56)
--- NOTE | 2019-07-09 10:00 | NUR ---
DIALYSIS ABSTRACT CLERK CAME REVIEWED LABS AND WITH ORDER FOR DIALYSIS TODAY
[2019-07-09 10:28] LABS: NEUTROPHILS % (AUTO) 76.3 % (40.0-70.0)
--- NOTE | 2019-07-09 10:45 | NUR ---
Discharge Planing: NEFTALI sp0oke to Harbert at [facility] ([phone]) authorization is being worked on and WBC is being watch to make sure there is no infection, facilities that have beds are in the [facility] area. NEFTALI faxed labs to [phone]. Addendum: 07/09/19 at 1547 by Antionette Haley DP per [facility] Loan Processing Supervisor [phone]. NEFTALI made CM aware.
--- NOTE | 2019-07-09 10:45 | NUR ---
P.T. NOTES PATIENT CURRENTLY IN DIALYSIS TREATMENT.
--- NOTE | 2019-07-09 11:07 | NUR ---
LARON HERNANDEZ SERVICE STATION EQUIPMENT MECHANIC SPOKE WITH DR MORALES AND ORDERED FOR LARON , CALLED PHARMACY AND WILL VERIFY
[2019-07-09] MEDS ORDERED: ALTEPLASE 2 MG VIAL MC ONE (11:15)
[2019-07-09] MEDS: HEPARIN SODIUM,PORCINE 5000 UNITS/ML VIAL SUBCUT SCH (12:14)
[2019-07-09 12:18] VITALS: BP_SYST 159
[2019-07-09] MEDS: INSULIN LISPRO SLIDING SCALE 100 UNITS/ML VIAL (humaLOG) SUBCUT PRN ×3 (12:19→23:21)
--- NOTE | 2019-07-09 16:26 | NUR ---
DC Planning: updated Nathalie/Jin Cevallos PPO and gave info and personal counselor/number of HD company /[facility] and [facility]. These two companies are filing for the authorization with [place]. Per Nathalie : she will f/u and will give DAVID if needed. --I phoned and LVM to Izabel and mathieu, asking them to call back for further update. -- CM to f/u in am.
[2019-07-09] MEDS: PIPERACILLIN/TAZO 4.5GM/DEX-IS 100 ML IV SCH ×2 (16:30→21:58)
[2019-07-09] MEDS ORDERED: ACETAMINOPHEN 650 MG/20.3 ML UDC GT PRN (16:45)
--- NOTE | 2019-07-09 16:45 | NUR ---
FEVER PATIENT DEVELOPED FEVER NOTIFIED DR RICCI ORDERS NOTED Addendum: 07/09/19 at 1934 by Flaca Mckeon RN DR RICCI ORDERED TYLENOL AND VANCOMYCIN AND RESTORIL HS FOR PATIENT MOM REQUEST TO HAVE SLEEPING PILLS
[2019-07-09] MEDS ORDERED: VANCOMYCIN HCL 1 GM/NS PREMIX 250 ML IV ONE (17:00)
[2019-07-09 17:18] VITALS: BP_SYST 151
--- NOTE | 2019-07-09 19:00 | NUR ---
ENDORSEMENT WILL ENDORSE PATIENT TO NEXT SHIFT CONT CARE, CONT TO MONITOR TEMP WENT DOWN TO 98 MOTHER AT BEDSIDE, INFORMED CHARGE NURSE PATIENT STILL FOR BLOOD CULTURE BUT THRU PERMACATH , WILL INFORM DIALYSIS NURSE WHEN SOMEONE COME FOR DIALYSIS IN AM , TO DRAW BLOOD FROM THE PERMACATH , PER CHARGE NURSE Bren Bob WILL WAIT FOR THE DIALYSIS IN AM, PATIENT SUCTIONING PRN AND GTUBE FEEDING TOLERATED , SAFETY ENSURED
--- NOTE | 2019-07-09 19:45 | NUR ---
Pt is awake and resting quietly in bed. Pt is non-verbal and pt's mother is visiting at the bedside. Tracheostomy is in place with T Collar and O2 at 40%. No respiratory distress noted at this time. Pt is tolerating GTF of Nepro at 30ml/hr. Lema Cath to gravity drainage noted with yellowish urine. Rt chest Hemodialysis Permacath noted with the dressing dry and intact. Skin is warm and dry to touch. No signs or symptoms of hypoglycemia or hyperglycemia noted. IV site in LH is without any signs of infiltration. Fall, seizure and safety precautions are in place.
[2019-07-09 20:00] VITALS: BP_SYST 142
[2019-07-09] MEDS: TEMAZEPAM 7.5 MG CAPSULE GT SCH (21:57)
[2019-07-09] MEDS: INSULIN GLARGINE 100 UNITS/ML 10 ML VIAL SUBCUT SCH (22:02)
--- NOTE | 2019-07-09 22:02 | NUR ---
Accucheck 196 and scheduled HS Lantus Insulin 5 units given SQ. Skin remains warm and dry to touch. GTF is infusing well. Fall, seizure and safety precautions are in place.
--- NOTE | 2019-07-09 23:21 | NUR ---
Accucheck 238 and 4 units Humalog Insulin given SQ. Skin remains warm and dry to touch. GTF is infusing well. Fall, seizure and safety precautions are in place.
[2019-07-10 00:48] VITALS: BP_SYST 111
[2019-07-10] MEDS: IPRATROPIUM BROM 0.5 MG/2.5 ML VIAL.NEB (ATROVENT) INH SCH ×4 (01:07→19:40)
[2019-07-10] MEDS: LevALBUTEROL HCL 1.25 MG/0.5 ML *CONC.* VIAL.NEB (XOPENEX CONC.) INH SCH ×4 (01:07→19:40)
--- NOTE | 2019-07-10 01:30 | NUR ---
Pt is sleeping without any distress. GTF is infusing well. Fall, seizure and safety precautions are in place.
--- NOTE | 2019-07-10 02:35 | NUR ---
TRACH CARE DONE. CHANGED INNER CANNULA. SM. BLOOD TINGED MUCUS. TRACH PATENT AND INTACT. Addendum: 07/10/19 at 0308 by Nannette Dixon RT Amended: Links added.
[2019-07-10] MEDS: PIPERACILLIN/TAZO 4.5GM/DEX-IS 100 ML IV SCH ×3 (05:37→22:23)
[2019-07-10] MEDS: LEVOTHYROXINE SODIUM 0.025 MG TABLET GT SCH (05:38)
[2019-07-10] MEDS: HYDROCORTISONE SOD SUCC 100 MG/2 ML VIAL IVP SCH ×2 (05:39→17:47)
[2019-07-10] MEDS: DILTIAZEM HCL 90 MG TABLET GT SCH ×3 (05:42→17:49)
--- NOTE | 2019-07-10 06:30 | NUR ---
Pt is tolerating GT Feeding well. Pt is awake and resting comfortably in bed. All pt's needs were attended to. Accucheck 111 this AM and no Insulin coverage needed. Skin remains warm and dry to touch. IV site in LH is without any signs of infiltration. Fall and safety precautions are in place. Will endorse to day shift nurse.
[2019-07-10 07:32] LABS: ALBUMIN 1.8 g/dL (3.4-4.8); CALCIUM 9.7 mg/dL (8.4-11.0); CREATININE 2.5 mg/dL (0.55-1.30); POTASSIUM 3.6 mmol/L (3.5-5.1); TOTAL BILIRUBIN 0.2 mg/dL (0.0-1.0)
--- NOTE | 2019-07-10 08:00 | NUR ---
RN INITIAL NOTES RECEIVED PATIENT IN BED WITH EYES OPEN NO DISTRESS, PATIENT WITH T BAR WITH FI02 40%, SATING 96%, PATIENT WITH GTUBE FEEDING TO 30 CC/HR, FLUSHED WITH A MINIMAL WATER, NO SIGN OF ASPIRATION , FOEY CATH INTACT WITH MINIMAL URINE OUTPUT , PATIENT STILL NOTED WITH BLOOD IN THE TRACH , SUCTION BY RT CAUTIOUSLY, PATIENT BREATHING TX DONE , WILL NOTIFY DR RICCI ABOUT STILL NO BLOOD CULTURE DONE D/T NO DIALYSIS NURSE IN THE BUILDING , CHARGE NURSE MADE AWARE, NO FEVER AT THIS TIME
[2019-07-10 08:30] VITALS: BP_SYST 114
[2019-07-10] MEDS: VALPROIC ACID ORAL SYRUP 250 MG/5 ML UDC GT SCH ×4 (09:10→20:30)
[2019-07-10] MEDS: POTASSIUM CHLORIDE 20 MEQ/PKT PACKET PO SCH (09:11)
[2019-07-10] MEDS: METOPROLOL TARTRATE 50 MG TABLET GT SCH ×2 (09:11→20:28)
[2019-07-10] MEDS: LevETIRAcetam 500 MG/5 ML UDC ORAL LIQUID GT SCH ×2 (09:11→20:29)
[2019-07-10] MEDS: CHOLESTYRAMINE/SUCROSE 4 GM/PACKET GT SCH (09:12)
[2019-07-10] MEDS: FOLIC ACID 1 MG TABLET GT SCH (09:12)
[2019-07-10] MEDS: PANTOPRAZOLE SODIUM 40 MG/VIAL (PROTONIX) IVP SCH (09:12)
--- NOTE | 2019-07-10 10:30 | NUR ---
DC Planning: Informed Izabel that the sub acute placement and HD set up is pending authorization screening. [facility] work with [facility] are potential accepting the pt. SUE Zelaya at made aware and she will contact them to work out the auth. Izabel agreed with the finding and transfer if the facility accepted. Addendum: 07/10/19 at 1519 by Winsome Conley RN >> Late entry: 1130 , Received voice mail from Izabel that she went on tour at [facility] and liked the place. She asked to send info to [facility] for evaluation.
--- NOTE | 2019-07-10 12:00 | NUR ---
ROUNDS DR RICCI HERE INFORMED PATIENT STILL NO BLOOD CULTURE DONE TO PATRICIA NORWOOD AWARE WILL DO IT IN AM ONCE DIALYSIS IS DONE, NO FEVER AT THIS TIME, PATIENT SUCTIONING DONE BY RT . PATIENT STILL WITH BLOOD COMING FROM SUCTIONING IN TRACK , DR RICCI EXPLAINED TO THE MOTHER R/T HEPARIN USE, WILL INFORM WOUND NURSE REG THE PENILE LINEAR CUT/WOUND, KEEP AREA CLEAN
[2019-07-10 12:36] VITALS: BP_SYST 121
--- NOTE | 2019-07-10 13:22 | NUR ---
Classroom Assistant: Pts. mom wanted to speak to a Inspector Eyeglass CASH ON DELIVERY CLERK met with pts. mom in his room. Pts. mom stated she had been thinking about [facility] and began reading the reviews. She stated she was not sure what to think so she just had to go visit the facility for herself. She stated she met two staffers there who explained the program and even took her on a tour. The end result, she loved the facility. She asked CASH ON DELIVERY CLERK to relay the msg. to the that she would like for her son to go there. CASH ON DELIVERY CLERK was happy she was able to visit and will relay the msg. CASH ON DELIVERY CLERK spoke to Winsome who stated she will work on this. CASH ON DELIVERY CLERK will remain available as needed.
--- NOTE | 2019-07-10 14:53 | NUR ---
GTUBE CLOGGED PAGED GI DR ARCHER TO INFORM GTUBE IS CLOGGED
[2019-07-10 15:01] LABS: HEMATOCRIT 27.9 % (36-54); HEMOGLOBIN 9.1 g/dL (14.0-18.0); MEAN CORPUSCULAR HEMOGLOBIN 29 pg (27-31); MEAN CORPUSCULAR HGB CONC 33 % (32-36); MEAN CORPUSCULAR VOLUME 90 fL (79.0-98.0); PLATELET COUNT (AUTO) 445 K/uL (130-430); RED BLOOD CELL COUNT(AUTO) 3.11 MIL/uL (4.2-6.2); RED CELL DISTRIBUTION WIDTH 15.5 % (9.0-15.0); WHITE BLOOD COUNT (AUTO) 16.5 K/uL (4.8-10.8)
--- NOTE | 2019-07-10 15:02 | NUR ---
DC Planning: Sabrina Argueta: per Izabel's requested to send referral to [facility] after she when for a tour. She stated " she fell in love with the place and can see her son be at this facility." >> Faxed referral to [facility]/Liaison for sub acute fax# [phone], tel # [phone]. -- CM to f/u.
[2019-07-10 15:14] LABS: CALCIUM 10.1 mg/dL (8.4-11.0); CREATININE 2.83 mg/dL (0.55-1.30); POTASSIUM 4.3 mmol/L (3.5-5.1)
[2019-07-10 15:22] LABS: BAND % (MANUAL) 5 % (0-6); BASOPHILS % (MANUAL) 0 % (0-2); EOSINOPHILS % (MANUAL) 1 % (0-7); LYMPHOCYTES % (MANUAL) 9 % (20-46); METAMYELOCYTES % 3 % (0-0); MONOCYTES % (MANUAL) 3 % (0-11); MYELOCYTES % 1 % (0-0)
--- NOTE | 2019-07-10 15:35 | NUR ---
Wound Re-Evaluation: Patient evaluated for a low Jacob score of 14. Patient was awake, non-verbal, non-responsive to verbal commands, on tracheostomy tube ventilator, and received in a Shaunna Bed with an IsoFlex CESILIA mattress with low air loss therapy. Patient needs to be turned in bed. JUDY Cornejo, was concerned about sanguineous soaked drain pads with quiet lesion on tracheostomy site that was created about 3 days ago. Skin assessment: 1. Tracheostomy site: Tracheostomy site, skin intact. Recommend: Change drain pads daily and when necessary for soiling. Change inter-dry AG cloth in neck fold every 5 days and as needed for soiling. 2. Buttock: Scar tissue. Skin is intact. Recommend continue: Cleanse involved area with mild soap and water. Pat dry. Apply moisture barrier cream to involved area. Perform site care 4 times a day, and as needed for soiling. Do not place patient in supine position at any time. 3. Dorsal Penile Shaft: Moisture associated wound. Site has 100% yellow tissue. No odor, no drainage. Periwound intact. Wound measures 0.8 cm x 1.2 cm. Recommend: Cleanse wound with normal saline. Apply moisture barrier cream onto periwound. Apply Venelex ointment to wound bed. Cover with small piece of nonadhesive foam dressing, cut to size. Wrap with Edson wrap (not too tightly), so that penile shaft does not fold onto itself anteriorly. Perform wound care daily, and as needed for dressing soiling or dislodgment. Recommend continue: Reposition patient eggk-to-jxlo only every 2 hours with pillow support. Elevate, off-load and float bilateral heels with pillows. Offload pressure areas with pillows for pressure re-distribution. Perform skin care and monitor skin integrity Q shift. Use moisture barrier cream on moisture susceptible areas QID and PRN for soiling. Maintain patient on low air-loss therapy.
--- NOTE | 2019-07-10 15:48 | NUR ---
TESSA NORWOOD, DR ARCHER WAS CALLED RE: CLOGGED GTUBE. MOTHER OF THE PT SUCCESSFULLY UNCLOGGED THE GTUBE. SPOKE TO JHONNY TO INFORM DR ARCHER THAT HE DOES NOT HAVE TO COME TO UNCLOGGED OR INSERT ANOTHER GTUBE.
[2019-07-10 16:30] VITALS: BP_SYST 129; BP_SYST 130
--- NOTE | 2019-07-10 17:00 | NUR ---
MOTHER CAME DE CLOGGED GTUBE PATIENT MOTHER CAME AND STATED SHE DO THE DE CLOGGING AT HOME WHEN THIS HAPPENED , MOTHER ABLE TO DE CLOGGED GTUBE, PATENT AND FEEDING RESUMED, DR TESSA ARCHER WAS CALLED AGAIN THAT MOTHER ABLE TO DE CLOGGED THE GTUBE LIKE AT HOME
[2019-07-10] MEDS ORDERED: BALSAM PERU/CASTOR OIL 60 GM OINT...G. TP ONE (17:15)
--- NOTE | 2019-07-10 19:00 | NUR ---
ENDORSEMENT ENDORSED TO NEXT SHIFT PATIENT GTUBE WAS CLOGGED AND DE CLOGGED BY MOM , DR ARCHER IS AWARE AND SAID ITS OK , GTUBE RUNNING, WOUND NURSE SEEN THE PENILE CUT AND TREATMENT WITH VENELEX WILL START ONCE MEDICATION IS AVAIL, PATIENT IS FOR [facility] EVAL
--- NOTE | 2019-07-10 19:40 | NUR ---
ROUNDS PATIENT RESTING COMFORTABLY IN BED, NOT IN DISTRESS, ON T-BAR, VITALS STABLE. PATIENT NON VERBAL, NO SIGNS OF ANY PAIN AND DISCOMFORT NOTED AT THIS TIME. ASSESSMENT DONE AND DOCUMENTED. SEE FLOWSHEET. NEEDS ATTENDED TO. SAFETY AND FALL PRECAUTION MEASURES IN PLACED. BED IN LOW AND LOCKED POSITION. CALL LIGHT PLACED WITHIN REACH.
[2019-07-10 20:00] VITALS: BP_SYST 146
[2019-07-10] MEDS: TEMAZEPAM 7.5 MG CAPSULE GT SCH (20:28)
[2019-07-10] MEDS: INSULIN GLARGINE 100 UNITS/ML 10 ML VIAL SUBCUT SCH (21:10)
--- NOTE | 2019-07-10 21:15 | NUR ---
MEDICATION DUE MEDICATIONS GIVEN SCHEDULED, TOLERATED WELL. WILL CONTINUE TO MONITOR.
[2019-07-10 23:57] VITALS: BP_SYST 146
[2019-07-11] MEDS: IPRATROPIUM BROM 0.5 MG/2.5 ML VIAL.NEB (ATROVENT) INH SCH ×4 (00:10→19:39)
[2019-07-11] MEDS: LevALBUTEROL HCL 1.25 MG/0.5 ML *CONC.* VIAL.NEB (XOPENEX CONC.) INH SCH ×4 (00:10→19:38)
--- NOTE | 2019-07-11 00:12 | NUR ---
PATIENT RESTING: Patient resting quietly. No acute distress noted. Vital signs within normal range.
[2019-07-11] MEDS: DILTIAZEM HCL 90 MG TABLET GT SCH ×4 (00:39→17:59)
[2019-07-11] MEDS: INSULIN LISPRO SLIDING SCALE 100 UNITS/ML VIAL (humaLOG) SUBCUT PRN (00:52)
--- NOTE | 2019-07-11 02:14 | NUR ---
ROUNDS PATIENT ASLEEP, RESPIRATIONS EVEN AND UNLABORED, WILL CONTINUE TO MONITOR.
--- NOTE | 2019-07-11 04:13 | NUR ---
PATIENT RESTING: Patient resting quietly. No acute distress noted. Vital signs within normal range.
[2019-07-11] MEDS: LEVOTHYROXINE SODIUM 0.025 MG TABLET GT SCH (05:28)
[2019-07-11] MEDS: HYDROCORTISONE SOD SUCC 100 MG/2 ML VIAL IVP SCH ×2 (05:28→17:57)
[2019-07-11] MEDS: PIPERACILLIN/TAZO 4.5GM/DEX-IS 100 ML IV SCH ×3 (05:35→22:27)
[2019-07-11 07:41] LABS: BASOPHILS # (AUTO) 0.2 K/uL (0.0-0.2); EOSINOPHILS % (AUTO) 0.2 % (0.0-4.0); HEMATOCRIT 26.7 % (36-54); HEMOGLOBIN 8.8 g/dL (14.0-18.0); LYMPHOCYTES # (AUTO) 1.5 K/uL (1.0-5.5); LYMPHOCYTES % (AUTO) 8.2 % (20.5-51.5); MEAN CORPUSCULAR HEMOGLOBIN 30 pg (27-31); MEAN CORPUSCULAR HGB CONC 33 % (32-36); MEAN CORPUSCULAR VOLUME 90 fL (79.0-98.0); MONOCYTES # (AUTO) 2.2 K/uL (0.0-1.0); MONOCYTES % (AUTO) 11.7 % (1.7-9.3); NEUTROPHILS # (AUTO) 14.8 K/uL (1.8-7.7); PLATELET COUNT (AUTO) 425 K/uL (130-430); RED BLOOD CELL COUNT(AUTO) 2.96 MIL/uL (4.2-6.2); WHITE BLOOD COUNT (AUTO) 18.8 K/uL (4.8-10.8)
[2019-07-11 07:48] LABS: CALCIUM 10.6 mg/dL (8.4-11.0); CREATININE 3.45 mg/dL (0.55-1.30); POTASSIUM 3.8 mmol/L (3.5-5.1)
--- NOTE | 2019-07-11 07:59 | NUR ---
ASSUMPTION OF CARE: RECEIVED PT ASLEEP, AROUSED VIA VERBAL STIMULI, DX:INADEQUATE VENTILATION, R/T PNEUMONIA, BREATH SOUNDS ARE RHONCHI, BREATHING IS UNLABORED, HAS PERMA CATH TO LEFT CHEST WALL, INTACT NO REDNESS OR SWELLING NOTED, IV SITE INTACT, PATENT, NO REDNESS OR SWELLING, AFEBRILE, VSS, NO INDICATION OF DISTRESS OR DISCOMFORT, RESTING ON AIR MATTRESS, POSITIONED FOR COMFORT, WILL CONT' TO MONITOR AND ASSESS.
[2019-07-11 08:00] VITALS: BP_SYST 141
--- NOTE | 2019-07-11 08:00 | NUR ---
ASSUMPTION OF CARE: RECEIVED PT ASLEEP, AROUSED VIA VERBAL STIMULI, DX:INADEQUATE VENTILATION, R/T PNEUMONIA, BREATH SOUNDS ARE RHONCHI, BREATHING IS UNLABORED, HAS PERMACATH TO LEFT CHESTWALL, INTACT NO REDNESS OR SWELLING NOTED IV SITE INTACT, PATENT, NO REDNESS OR SWELLING, AFEBRILE, VSS, NO INDICATION OF DISTRESS OR DISCOMFORT, RESTING ON AIR MATTRESS, POSITIONED FOR COMFORT, WILL CONT' TO MONITOR AND ASSESS.
--- NOTE | 2019-07-11 09:00 | NUR ---
CANDY DECORATOR: MORNING MEDS GIVEN, PER ORDERED BY Ovi, TOLERATED WELL, WILL CONT' TO MONITOR AND ASSESS.
[2019-07-11 09:36] LABS: NEUTROPHILS % (AUTO) 78.9 % (40.0-70.0)
[2019-07-11] MEDS: FOLIC ACID 1 MG TABLET GT SCH (09:43)
[2019-07-11] MEDS: METOPROLOL TARTRATE 50 MG TABLET GT SCH ×2 (09:43→21:19)
[2019-07-11] MEDS: VALPROIC ACID ORAL SYRUP 250 MG/5 ML UDC GT SCH ×4 (09:43→21:21)
[2019-07-11] MEDS: PANTOPRAZOLE SODIUM 40 MG/VIAL (PROTONIX) IVP SCH (09:44)
[2019-07-11] MEDS: CHOLESTYRAMINE/SUCROSE 4 GM/PACKET GT SCH (09:44)
[2019-07-11] MEDS: LevETIRAcetam 500 MG/5 ML UDC ORAL LIQUID GT SCH ×2 (09:44→21:20)
[2019-07-11] MEDS: POTASSIUM CHLORIDE 20 MEQ/PKT PACKET PO SCH (09:44)
[2019-07-11] MEDS: BALSAM PERU/CASTOR OIL 60 GM OINT...G. TP SCH (09:48)
[2019-07-11 12:00] VITALS: BP_SYST 159
--- NOTE | 2019-07-11 12:00 | NUR ---
GLUCOSE MONITORING: BLOOD SUGAR QSMPC=[id number], NO COVERAGE REQUIRED, WILL CONT' WITH POC.
--- NOTE | 2019-07-11 12:07 | NUR ---
PAGED PAGED MACIEJ RIZZO AT [phone] SPOKE WITH JEYSON.
[2019-07-11] MEDS: MORPHINE 2 MG/ML INJ. SYRINGE IVP PRN (12:12)
[2019-07-11] MEDS ORDERED: LORazepam 2 MG/ML VIAL IVP PRN (12:30)
--- NOTE | 2019-07-11 13:00 | NUR ---
DIALYSIS: DIALYSIS NURSE GALEANA AT BEDSIDE FOR ORDERED TX, PT IS STABLE, MOTHER OF THE PT AT BEDSIDE, WILL CONT' WITH POC.
[2019-07-11] MEDS ORDERED: EPOETIN ALFA 10,000 UNITS/ML VIAL SUBCUT ONE (14:00)
[2019-07-11] MEDS: HEPARIN SODIUM,PORCINE 5000 UNITS/ML VIAL SUBCUT SCH (15:07)
--- NOTE | 2019-07-11 15:15 | NUR ---
1515 SXN AT TRACH, CHANGED INNER CANNULA, TRACH CARE DONE SEVERAL TIMES THROUGHOUT THE SHIFT Addendum: 07/11/19 at 1618 by Nannette Dixon RT Amended: Links added.
[2019-07-11 16:00] VITALS: BP_SYST 117
--- NOTE | 2019-07-11 18:00 | NUR ---
GLUCOSE MONITORING: BLOOD SUGAR BHSRV=[id number], NO COVERAGE REQUIRED, WILL CONT' TO MONITOR, WILL CONT WITH POC.
--- NOTE | 2019-07-11 19:45 | NUR ---
ROUNDS PATIENT IN BED, EYES CLOSED, ON TRACH TO T-BAR, NOT IN DISTRESS, NO SIGNS OF ANY PAIN AND DISCOMFORT NOTED. G TUBE FEEDING INFUSING WELL AT 30 ML/HR, TOLERATED WELL. NEEDS ATTENDED TO. TURNED AND REPOSITIONED AND MADE COMFORTABLE. WILL CONTINUE TO MONITOR.
--- NOTE | 2019-07-11 21:16 | NUR ---
MEDICATIONS DUE MEDICATIONS GIVEN SCHEDULED, TOLERATED WELL. WILL CONTINUE TO MONITOR.
[2019-07-11] MEDS: TEMAZEPAM 7.5 MG CAPSULE GT SCH (21:19)
[2019-07-11] MEDS: INSULIN GLARGINE 100 UNITS/ML 10 ML VIAL SUBCUT SCH (21:27)
[2019-07-12] MEDS: LevALBUTEROL HCL 1.25 MG/0.5 ML *CONC.* VIAL.NEB (XOPENEX CONC.) INH SCH ×4 (00:06→19:26)
[2019-07-12 00:09] VITALS: BP_SYST 132
--- NOTE | 2019-07-12 00:12 | NUR ---
PATIENT RESTING: Patient resting quietly. No acute distress noted. Vital signs within normal range.
[2019-07-12] MEDS: DILTIAZEM HCL 90 MG TABLET GT SCH ×4 (00:27→17:57)
[2019-07-12] MEDS: INSULIN LISPRO SLIDING SCALE 100 UNITS/ML VIAL (humaLOG) SUBCUT PRN ×2 (00:43→12:07)
--- NOTE | 2019-07-12 02:13 | NUR ---
ROUNDS PATIENT ASLEEP, RESPIRATIONS EVEN AND UNLABORED, WILL CONTINUE TO MONITOR.
--- NOTE | 2019-07-12 04:13 | NUR ---
PATIENT RESTING: Patient resting quietly. No acute distress noted. Vital signs within normal range.
[2019-07-12] MEDS: PIPERACILLIN/TAZO 4.5GM/DEX-IS 100 ML IV SCH ×3 (05:26→23:10)
[2019-07-12] MEDS: LEVOTHYROXINE SODIUM 0.025 MG TABLET GT SCH (05:26)
[2019-07-12] MEDS: HYDROCORTISONE SOD SUCC 100 MG/2 ML VIAL IVP SCH ×2 (05:26→17:54)
[2019-07-12] MEDS: IPRATROPIUM BROM 0.5 MG/2.5 ML VIAL.NEB (ATROVENT) INH SCH ×3 (07:11→19:26)
[2019-07-12] MEDS: DIPHENHYDRAMINE INJ 50 MG/ML VIAL IVP PRN ×2 (07:42→16:11)
[2019-07-12 07:50] VITALS: BP_SYST 165
[2019-07-12] MEDS: POTASSIUM CHLORIDE 20 MEQ/PKT PACKET PO SCH (07:56)
[2019-07-12] MEDS: METOPROLOL TARTRATE 50 MG TABLET GT SCH ×2 (07:56→21:24)
[2019-07-12] MEDS: PANTOPRAZOLE SODIUM 40 MG/VIAL (PROTONIX) IVP SCH (07:56)
[2019-07-12] MEDS: FOLIC ACID 1 MG TABLET GT SCH (07:56)
[2019-07-12] MEDS: CHOLESTYRAMINE/SUCROSE 4 GM/PACKET GT SCH (07:56)
[2019-07-12] MEDS: LevETIRAcetam 500 MG/5 ML UDC ORAL LIQUID GT SCH ×2 (07:57→21:14)
[2019-07-12] MEDS: VALPROIC ACID ORAL SYRUP 250 MG/5 ML UDC GT SCH ×4 (07:57→21:13)
[2019-07-12] MEDS: BALSAM PERU/CASTOR OIL 60 GM OINT...G. TP SCH (07:58)
[2019-07-12 08:38] LABS: BASOPHILS # (AUTO) 0.2 K/uL (0.0-0.2); BASOPHILS % (AUTO) 0.8 % (0.0-2.0); EOSINOPHILS # (AUTO) 0.1 K/uL (0.0-0.4); EOSINOPHILS % (AUTO) 0.5 % (0.0-4.0); HEMATOCRIT 29.9 % (36-54); HEMOGLOBIN 9.8 g/dL (14.0-18.0); LYMPHOCYTES # (AUTO) 1.5 K/uL (1.0-5.5); LYMPHOCYTES % (AUTO) 6.8 % (20.5-51.5); MEAN CORPUSCULAR HEMOGLOBIN 29 pg (27-31); MEAN CORPUSCULAR HGB CONC 33 % (32-36); MEAN CORPUSCULAR VOLUME 89 fL (79.0-98.0); MONOCYTES # (AUTO) 2.3 K/uL (0.0-1.0); MONOCYTES % (AUTO) 10.4 % (1.7-9.3); NEUTROPHILS # (AUTO) 17.9 K/uL (1.8-7.7); NEUTROPHILS % (AUTO) 81.5 % (40.0-70.0); PLATELET COUNT (AUTO) 426 K/uL (130-430); RED BLOOD CELL COUNT(AUTO) 3.35 MIL/uL (4.2-6.2); RED CELL DISTRIBUTION WIDTH 15.5 % (9.0-15.0)
[2019-07-12 08:55] LABS: CALCIUM 10.3 mg/dL (8.4-11.0); CREATININE 2.75 mg/dL (0.55-1.30); POTASSIUM 3.6 mmol/L (3.5-5.1); VANCOMYCIN,RANDOM 17.4 ug/mL
--- NOTE | 2019-07-12 09:00 | NUR ---
SNAILER: MORNING MEDS GIVEN, PER ORDERED BY Ovi, TOLERATED WELL, WILL CONT' TO MONITOR AND ASSESS.
--- NOTE | 2019-07-12 12:00 | NUR ---
GLUCOSE MONITORING: BLOOD SUGAR BIXMZ=[id number], COVERED WITH 2 UNITS HUMALOG INSULIN, TOLERATING G-TUBE FEEDING, WILL CONT' TO MONITOR, WILL CONT WITH POC.
[2019-07-12 12:30] VITALS: BP_SYST 155
--- NOTE | 2019-07-12 13:17 | NUR ---
Nutrition F/U RD reviewed pt's current EMR including diet Hx, physician notes, nursing notes, pertinent labs/meds/procedures, care trends and care activity. Current Nutrition Support: Nepro at 30 ml/hr, via GT. Provides: 1296 kcal/day, 58 gm protein/day, and 523 ml free water/day Meets: 90% of upper end of estimated caloric needs and 98% of lower end of estimated protein needs Subjective information: Pt seen in bed, +trach to T-bar. EN infusing per MD orders. Per RN report, no residual this morning, GT gets clogged often and RN noted very narrow tubing. Per MD notes, 06/15/2019 S/P tracheostomy and noticed bleeding from trach. Last BM was today 07/12, abd is soft and non-distended. implementation engineer re-eval notes (07/10) reviewed. Last dialysis yesterday 07/11. Labs: 07/12 Na 134L, K 3.6WNL, BG 104H, POC BG 154H, BUN 32H, CRE 2.75H Estimated Energy Expenditure (kcals/day) 0379-1316 kcal/day (25-30kcal/kg CBW for critical illness) Estimated Protein Required (g/day) 59-67 gm/day (1.2-1.4 gm/kg CBW for Renal Dz, dialysis) Estimated Fluid Required (l/day) Deferred to MD d/t ARF Problem/Etiology/Signs/Symptoms Altered GI function r/t medication AEB flagyl and reports of diarrhea per nursing staff *no longer applicable Altered nutrition-related lab values related to renal dysfunction as evidenced by abnormal BUN, CRE, and eGFR lab values. *ongoing Expected Outcomes/Goals Monitor EN support and intake w/ goal of pt meeting at least 75% of estimated nutritional needs, labs trending WNL, normal GI function, skin integrity/wt maintenance. Dietitian Recommendations * Continue: Nepro at 30 ml/hr via GT Provides: 1296 kcal/day, 58 gm protein/day, and 523 ml free water/day Meets: 90% of upper end of estimated caloric needs and 98% of lower end of estimated protein needs Follow Up Moderate Risk: F/U in 3-5 days
--- NOTE | 2019-07-12 13:25 | NUR ---
Dietitian Recommendations * Continue: Nepro at 30 ml/hr via GT Provides: 1296 kcal/day, 58 gm protein/day, and 523 ml free water/day Meets: 90% of upper end of estimated caloric needs and 98% of lower end of estimated protein needs Please see Nutrition F/U note for details. CLAIR, RD
--- NOTE | 2019-07-12 15:00 | NUR ---
NURSES NOTES: PT RESTING IN POSITION OF COMFORT, NO CHANGES IN CONDITION NOTED, BREATHING IS UNLABORED, SATURATING 100% ON 40% FIO2 VIA T-BAR, WITH COOL MIST ADDED, VSS, NO INDICATION OF PAIN OR DISCOMFORT, WILL CONT' TO MONITOR AND ASSESS.
[2019-07-12 16:07] VITALS: BP_SYST 138
--- NOTE | 2019-07-12 18:00 | NUR ---
GLUCOSE MONITORING: BLOOD SUGAR BPVRA=088, NO COVERAGE REQUIRED, WILL CONT' WITH POC.
[2019-07-12 20:00] VITALS: BP_SYST 145
[2019-07-12] MEDS ORDERED: VANCOMYCIN HCL 750 MG in NS 250 ML IV ONE (21:00)
[2019-07-12] MEDS: TEMAZEPAM 7.5 MG CAPSULE GT SCH (21:13)
[2019-07-12] MEDS: INSULIN GLARGINE 100 UNITS/ML 10 ML VIAL SUBCUT SCH (21:32)
[2019-07-13] VITALS: BP_SYST 136
[2019-07-13] MEDS: DIPHENHYDRAMINE INJ 50 MG/ML VIAL IVP PRN ×2 (00:14→05:41)
[2019-07-13] MEDS: DILTIAZEM HCL 90 MG TABLET GT SCH ×5 (00:23→23:03)
[2019-07-13] MEDS: INSULIN LISPRO SLIDING SCALE 100 UNITS/ML VIAL (humaLOG) SUBCUT PRN (00:36)
[2019-07-13] MEDS: IPRATROPIUM BROM 0.5 MG/2.5 ML VIAL.NEB (ATROVENT) INH SCH ×4 (01:22→19:40)
[2019-07-13] MEDS: LevALBUTEROL HCL 1.25 MG/0.5 ML *CONC.* VIAL.NEB (XOPENEX CONC.) INH SCH ×4 (01:22→19:40)
[2019-07-13] MEDS: PIPERACILLIN/TAZO 4.5GM/DEX-IS 100 ML IV SCH ×3 (05:40→23:04)
[2019-07-13] MEDS: HYDROCORTISONE SOD SUCC 100 MG/2 ML VIAL IVP SCH ×2 (05:41→17:50)
[2019-07-13] MEDS: LEVOTHYROXINE SODIUM 0.025 MG TABLET GT SCH (05:41)
--- NOTE | 2019-07-13 07:30 | NUR ---
OPENING NOTES: RECEIVED PATIENT FROM SHEEP FARMER NURSE. PATIENT IS AWAKE LAYING DOWN IN BED. PATIENT NONVERBAL. PATIENT IS TOLERATING OXYGEN ON T-BAR AT 10 L WITH 40% FIO2 WITH NO SIGNS OF DISTRESS OR SHORTNESS OF BREATH NOTED. IV SITE IS PATENT WITH NO SIGNS OF INFILTRATION NOTED. G-TUBE INTACT AND RUNNING FEEDING ORDERED. MENDOZA CATHETER INTACT AND DRAINING BY GRAVITY. PATIENT IN STABLE CONDITION. SAFETY, FALL, ASPIRATION AND SEIZURE PRECAUTIONS ARE IN PLACE. BED LOCKED IN LOWEST POSITION WITH CALL LIGHT IN REACH. WILL CONTINUE TO MONITOR PATIENT FOR ANY CHANGES.
[2019-07-13 08:30] VITALS: BP_SYST 147
--- NOTE | 2019-07-13 08:35 | NUR ---
DC Planning: [facility] : The pt is clinically approved ,pending bed availability per Vladimir. He will call back after his bed huddle at 1030 am if there will be bed for the pt today. Addendum: 07/13/19 at 1647 by Winsome Conley RN Late entry 1530: per Vladimir: He will call back tomorrow for LTAC decision.
[2019-07-13] MEDS: FOLIC ACID 1 MG TABLET GT SCH (09:52)
[2019-07-13] MEDS: CHOLESTYRAMINE/SUCROSE 4 GM/PACKET GT SCH (09:53)
[2019-07-13] MEDS: METOPROLOL TARTRATE 50 MG TABLET GT SCH ×2 (09:53→23:03)
[2019-07-13] MEDS: POTASSIUM CHLORIDE 20 MEQ/PKT PACKET PO SCH (09:53)
[2019-07-13] MEDS: PANTOPRAZOLE SODIUM 40 MG/VIAL (PROTONIX) IVP SCH (09:53)
[2019-07-13] MEDS: LevETIRAcetam 500 MG/5 ML UDC ORAL LIQUID GT SCH ×2 (09:54→22:56)
[2019-07-13] MEDS: VALPROIC ACID ORAL SYRUP 250 MG/5 ML UDC GT SCH ×4 (09:55→22:55)
[2019-07-13] MEDS: BALSAM PERU/CASTOR OIL 60 GM OINT...G. TP SCH (09:55)
--- NOTE | 2019-07-13 10:15 | NUR ---
RN ROUNDS: PATIENT IS AWAKE LAYING DOWN IN BED. NO SIGNS OF DISTRESS OR SHORTNESS OF BREATH NOTED. PATIENT IN STABLE CONDITION. WILL CONTINUE TO MONITOR PATIENT FOR ANY CHANGES.
--- NOTE | 2019-07-13 12:20 | NUR ---
RN ROUNDS: PATIENT IS AWAKE LAYING DOWN IN BED. NO SIGNS OF DISTRESS OR SHORTNESS OF BREATH NOTED. PATIENT IS TOLERATING OXYGEN ON T-BAR AT 10 L. IV SITE IS PATENT WITH NO SIGNS OF INFILTRATION NOTED. PATIENT IN STABLE CONDITION. WILL CONTINUE TO MONITOR PATIENT FOR ANY CHANGES.
[2019-07-13 12:29] VITALS: BP_SYST 151
[2019-07-13] MEDS: FLUCONAZOLE 200 mg/ NS 100 ML IV SCH (13:25)
--- NOTE | 2019-07-13 14:45 | NUR ---
RN ROUNDS: PATIENT IS AWAKE LAYING DOWN IN BED. PATIENT IS TOLERATING OXYGEN ON T-BAR AT 10 L WITH NO SIGNS OF DISTRESS OR SHORTNESS OF BREATH NOTED. PATIENT IN STABLE CONDITION. WILL CONTINUE TO MONITOR PATIENT FOR ANY CHANGES.
--- NOTE | 2019-07-13 16:25 | NUR ---
RN ROUNDS: PATIENT IS AWAKE LAYING DOWN IN BED. NO SIGNS OF DISTRESS OR SHORTNESS OF BREATH NOTED. FAMILY AT BEDSIDE. PATIENT IN STABLE CONDITION. WILL CONTINUE TO MONITOR PATIENT FOR ANY CHANGES.
[2019-07-13 16:33] VITALS: BP_SYST 138
--- NOTE | 2019-07-13 18:26 | NUR ---
CLOSING NOTES: PATIENT IS AWAKE LAYING DOWN IN BED. PATIENT NONVERBAL. PATIENT IS TOLERATING OXYGEN ON T-BAR AT 10 L WITH 40% FIO2 WITH NO SIGNS OF DISTRESS OR SHORTNESS OF BREATH NOTED. IV SITE IS PATENT ON SALINE LOCK WITH NO SIGNS OF INFILTRATION NOTED. G-TUBE INTACT AND RUNNING FEEDING ORDERED. MENDOZA CATHETER INTACT AND DRAINING BY GRAVITY. PATIENT IN STABLE CONDITION. SAFETY, FALL, ASPIRATION AND SEIZURE PRECAUTIONS ARE IN PLACE. BED LOCKED IN LOWEST POSITION WITH CALL LIGHT IN REACH. WILL ENDORSE PATIENT CARE TO ONCOMING COMPANY DANCER NURSE.
[2019-07-13 20:00] VITALS: BP_SYST 162
--- NOTE | 2019-07-13 21:18 | NUR ---
Patient in bed. No acute distress noted. Turned repositioned q2. HOB elevated. Gtube patent and intact. No residual noted. Will continue to monitor.
[2019-07-13] MEDS: TEMAZEPAM 7.5 MG CAPSULE GT SCH (22:56)
[2019-07-13] MEDS: INSULIN GLARGINE 100 UNITS/ML 10 ML VIAL SUBCUT SCH (23:09)
[2019-07-14 00:23] VITALS: BP_SYST 160
[2019-07-14] MEDS: IPRATROPIUM BROM 0.5 MG/2.5 ML VIAL.NEB (ATROVENT) INH SCH ×4 (01:02→19:10)
[2019-07-14] MEDS: LevALBUTEROL HCL 1.25 MG/0.5 ML *CONC.* VIAL.NEB (XOPENEX CONC.) INH SCH ×5 (01:03→19:10)
[2019-07-14] MEDS: LEVOTHYROXINE SODIUM 0.025 MG TABLET GT SCH (05:11)
[2019-07-14] MEDS: DILTIAZEM HCL 90 MG TABLET GT SCH ×2 (05:11→11:51)
[2019-07-14] MEDS: PIPERACILLIN/TAZO 4.5GM/DEX-IS 100 ML IV SCH ×3 (05:12→22:02)
[2019-07-14] MEDS: HYDROCORTISONE SOD SUCC 100 MG/2 ML VIAL IVP SCH ×2 (05:13→17:00)
--- NOTE | 2019-07-14 07:30 | NUR ---
OPENING NOTES: RECEIVED PATIENT FROM ACCOUNTANCY PROFESSOR NURSE. PATIENT IS AWAKE LAYING DOWN IN BED. PATIENT NONVERBAL. PATIENT IS TOLERATING OXYGEN ON T-BAR AT 10 L WITH 40% FIO2 WITH NO SIGNS OF DISTRESS OR SHORTNESS OF BREATH NOTED. IV SITE IS PATENT WITH NO SIGNS OF INFILTRATION NOTED. G-TUBE INTACT AND RUNNING FEEDING ORDERED. MENDOZA CATHETER INTACT AND DRAINING BY GRAVITY. PATIENT IN STABLE CONDITION. SAFETY, FALL, ASPIRATION AND SEIZURE PRECAUTIONS ARE IN PLACE. BED LOCKED IN LOWEST POSITION WITH CALL LIGHT IN REACH. WILL CONTINUE TO MONITOR PATIENT FOR ANY CHANGES.
[2019-07-14 08:26] VITALS: BP_SYST 163
[2019-07-14] MEDS: METOPROLOL TARTRATE 50 MG TABLET GT SCH ×2 (09:48→21:00)
[2019-07-14] MEDS: PANTOPRAZOLE SODIUM 40 MG/VIAL (PROTONIX) IVP SCH (09:48)
[2019-07-14] MEDS: POTASSIUM CHLORIDE 20 MEQ/PKT PACKET PO SCH (09:48)
[2019-07-14] MEDS: LevETIRAcetam 500 MG/5 ML UDC ORAL LIQUID GT SCH ×2 (09:49→22:21)
[2019-07-14] MEDS: CHOLESTYRAMINE/SUCROSE 4 GM/PACKET GT SCH (09:49)
[2019-07-14] MEDS: VALPROIC ACID ORAL SYRUP 250 MG/5 ML UDC GT SCH ×4 (09:49→22:20)
[2019-07-14] MEDS: FOLIC ACID 1 MG TABLET GT SCH (09:50)
[2019-07-14] MEDS: BALSAM PERU/CASTOR OIL 60 GM OINT...G. TP SCH (09:50)
--- NOTE | 2019-07-14 10:15 | NUR ---
RN ROUNDS: PATIENT IS AWAKE LAYING DOWN IN BED. FAMILY AT BEDSIDE. NO SIGNS OF DISTRESS OR SHORTNESS OF BREATH NOTED. IV SITE IS PATENT WITH NO SIGNS OF INFILTRATION NOTED. PATIENT IN STABLE CONDITION. WILL CONTINUE TO MONITOR PATIENT FOR ANY CHANGES.
[2019-07-14] MEDS: hydrALAZINE HCL 20 MG/ML VIAL IVP PRN (11:02)
--- NOTE | 2019-07-14 12:20 | NUR ---
RN ROUNDS: PATIENT IS AWAKE LAYING DOWN IN BED. PATIENT IS CURRENTLY HAVING DIALYSIS. DIALYSIS NURSE AT BEDSIDE. NO SIGNS OF DISTRESS OR SHORTNESS OF BREATH NOTED. PATIENT IN STABLE CONDITION. WILL CONTINUE TO MONITOR PATIENT FOR ANY CHANGES.
[2019-07-14] MEDS: FLUCONAZOLE 200 mg/ NS 100 ML IV SCH (12:42)
[2019-07-14] MEDS: INSULIN LISPRO SLIDING SCALE 100 UNITS/ML VIAL (humaLOG) SUBCUT PRN (12:44)
--- NOTE | 2019-07-14 13:15 | NUR ---
[facility]: Per Mikal, the pt is accepted but no bed available today. He suggested to send addition info for him to present to his admin for LTAC consideration. -- ivan Adan will fax to Vladimir fax # [phone], tel # [phone] Discharge barrier: pending bed availability at [facility]. WBC 22, Trach still has sm bleeding.
[2019-07-14 14:29] LABS: BASOPHILS # (AUTO) 0.2 K/uL (0.0-0.2); BASOPHILS % (AUTO) 0.6 % (0.0-2.0); EOSINOPHILS # (AUTO) 0.2 K/uL (0.0-0.4); EOSINOPHILS % (AUTO) 0.4 % (0.0-4.0); HEMATOCRIT 31.1 % (36-54); HEMOGLOBIN 10.4 g/dL (14.0-18.0); LYMPHOCYTES # (AUTO) 2.6 K/uL (1.0-5.5); LYMPHOCYTES % (AUTO) 6.8 % (20.5-51.5); MEAN CORPUSCULAR HEMOGLOBIN 29 pg (27-31); MEAN CORPUSCULAR HGB CONC 34 % (32-36); MEAN CORPUSCULAR VOLUME 88 fL (79.0-98.0); MONOCYTES # (AUTO) 2.9 K/uL (0.0-1.0); MONOCYTES % (AUTO) 7.5 % (1.7-9.3); NEUTROPHILS # (AUTO) 32.2 K/uL (1.8-7.7); NEUTROPHILS % (AUTO) 84.7 % (40.0-70.0); PLATELET COUNT (AUTO) 589 K/uL (130-430); RED BLOOD CELL COUNT(AUTO) 3.55 MIL/uL (4.2-6.2); RED CELL DISTRIBUTION WIDTH 15.7 % (9.0-15.0)
[2019-07-14 14:38] LABS: WHITE BLOOD COUNT (AUTO) 38.1 K/uL (4.8-10.8)
[2019-07-14 14:44] LABS: ALBUMIN 2.1 g/dL (3.4-4.8); CREATININE 2.03 mg/dL (0.55-1.30); TOTAL BILIRUBIN 0.4 mg/dL (0.0-1.0); VANCOMYCIN,RANDOM 14.7 ug/mL
[2019-07-14 15:02] LABS: POTASSIUM 2.6 mmol/L (3.5-5.1)
[2019-07-14 15:05] VITALS: BP_SYST 110
[2019-07-14 15:09] VITALS: BP_SYST 110
[2019-07-14] MEDS ORDERED: POTASSIUM CHLORIDE 20 MEQ/PKT PACKET PO ONE (16:15)
[2019-07-14] MEDS: VANCOMYCIN HCL ORAL SOLUTION 250 MG/5 ML, 80 ML PO SCH ×2 (16:20→21:00)
[2019-07-14] MEDS: metroNIDAZOLE 500 mg/NS 100 ML IV SCH ×2 (16:21→23:03)
--- NOTE | 2019-07-14 16:37 | NUR ---
RN ROUNDS: PATIENT IS AWAKE LAYING DOWN IN BED. FAMILY AT BEDSIDE. PATIENT IS GRIMACING. FAMILY ASKED IF WE COULD CALL THE DOCTOR FOR PAIN MEDICATION. PAGED. IV SITE IS PATENT WITH NO SIGNS OF INFILTRATION NOTED. PATIENT IN STABLE CONDITION. WILL CONTINUE TO MONITOR PATIENT FOR ANY CHANGES.
[2019-07-14] MEDS ORDERED: EPOETIN ALFA 3,000 UNITS/ML VIAL SUBCUT SCH (17:00)
[2019-07-14] MEDS: MORPHINE 2 MG/ML INJ. SYRINGE IVP PRN (17:01)
--- NOTE | 2019-07-14 18:45 | NUR ---
CLOSING NOTES: PATIENT IS AWAKE LAYING DOWN IN BED. PATIENT NONVERBAL. PATIENT IS TOLERATING OXYGEN ON T-BAR AT 10 L WITH 40% FIO2 WITH NO SIGNS OF DISTRESS OR SHORTNESS OF BREATH NOTED. IV SITE IS PATENT WITH NO SIGNS OF INFILTRATION NOTED. G-TUBE INTACT AND RUNNING FEEDING ORDERED. MENDOZA CATHETER INTACT AND DRAINING BY GRAVITY. PATIENT IN STABLE CONDITION. SAFETY, FALL, ASPIRATION AND SEIZURE PRECAUTIONS ARE IN PLACE. BED LOCKED IN LOWEST POSITION WITH CALL LIGHT IN REACH. WILL ENDORSE PATIENT CARE TO ONCOMING EVP OPERATIONS NURSE.
[2019-07-14 20:00] VITALS: BP_SYST 102
--- NOTE | 2019-07-14 20:00 | NUR ---
Opening notes Pt awake, eyes open, non verbal. T-bar 10L at 40%FiO2 saturation at 100%. IV saline lock L. hand 22G clear and patent. R. chest permacath dressing c/d/i. GT feeding Nepro running at 30ml/hr no residual noted. HOB maintained elevated. Lema catheter draining to gravity with scant amount of cloudy, yellow urine. Pt had a Temp of 100.5, cooling measures provided. Pt maintained on seizure precaution. Safety maintained. Bed alarm on. To monitor.
[2019-07-14] MEDS: TEMAZEPAM 7.5 MG CAPSULE GT SCH (22:21)
--- NOTE | 2019-07-14 22:30 | NUR ---
Pericare Pt awake, no s/s distress noted. Pt incontinent of small soft BM, no watery stool noted for C-Diff collection at this time. Pericare provided and Z guard applied to periarea. Optifoam dressing C/D/I. Pt repositioned. To monitor.
[2019-07-14] MEDS: INSULIN GLARGINE 100 UNITS/ML 10 ML VIAL SUBCUT SCH (23:31)
[2019-07-15 00:19] VITALS: BP_SYST 107
[2019-07-15] MEDS: IPRATROPIUM BROM 0.5 MG/2.5 ML VIAL.NEB (ATROVENT) INH SCH ×4 (00:51→19:06)
[2019-07-15] MEDS: LevALBUTEROL HCL 1.25 MG/0.5 ML *CONC.* VIAL.NEB (XOPENEX CONC.) INH SCH ×4 (00:52→19:06)
--- NOTE | 2019-07-15 02:35 | NUR ---
Rounds Pt asleep, eyes closed. No s/s distress noted. HOB maintained elevated. GT feeding running at ordered rate. Safety maintained. To monitor.
--- NOTE | 2019-07-15 04:30 | NUR ---
Rounds Pt asleep, easily arousable. No s/s distress noted. Lema catheter draining to gravity with scant amount of cloudy, yellow urine. Pt repositioned. Call light within reach. To monitor.
[2019-07-15] MEDS: metroNIDAZOLE 500 mg/NS 100 ML IV SCH (05:36)
[2019-07-15] MEDS: HYDROCORTISONE SOD SUCC 100 MG/2 ML VIAL IVP SCH ×2 (05:37→17:09)
[2019-07-15] MEDS: LEVOTHYROXINE SODIUM 0.025 MG TABLET GT SCH (05:37)
--- NOTE | 2019-07-15 05:50 | NUR ---
Closing notes Pt awake, eyes open. No s/s distress noted. Pt T-bar on 10L 40% FIO2. BS checked 141. IV antibiotic administered as ordered L. wrist 22G clear and patent. Permacath right chest dressing C/D/I. GT feeding running at ordered rate, toleratin well. Lema catheter draining to gravity with cloudy, yellow urine. Safety maintained. Bed low, locked, siderails up, alarm on. To endorse to AM nurse.
[2019-07-15] MEDS: PIPERACILLIN/TAZO 4.5GM/DEX-IS 100 ML IV SCH ×3 (06:50→21:52)
[2019-07-15 07:12] LABS: BASOPHILS # (AUTO) 0.2 K/uL (0.0-0.2); BASOPHILS % (AUTO) 0.8 % (0.0-2.0); EOSINOPHILS # (AUTO) 0.2 K/uL (0.0-0.4); EOSINOPHILS % (AUTO) 0.6 % (0.0-4.0); HEMATOCRIT 26.4 % (36-54); HEMOGLOBIN 8.6 g/dL (14.0-18.0); LYMPHOCYTES # (AUTO) 2.8 K/uL (1.0-5.5); LYMPHOCYTES % (AUTO) 10.6 % (20.5-51.5); MEAN CORPUSCULAR HEMOGLOBIN 29 pg (27-31); MEAN CORPUSCULAR HGB CONC 33 % (32-36); MEAN CORPUSCULAR VOLUME 89 fL (79.0-98.0); MONOCYTES # (AUTO) 3.4 K/uL (0.0-1.0); MONOCYTES % (AUTO) 12.5 % (1.7-9.3); NEUTROPHILS # (AUTO) 20.2 K/uL (1.8-7.7); NEUTROPHILS % (AUTO) 75.5 % (40.0-70.0); PLATELET COUNT (AUTO) 455 K/uL (130-430); RED BLOOD CELL COUNT(AUTO) 2.96 MIL/uL (4.2-6.2); RED CELL DISTRIBUTION WIDTH 15.8 % (9.0-15.0); WHITE BLOOD COUNT (AUTO) 26.7 K/uL (4.8-10.8)
[2019-07-15 07:31] LABS: ALBUMIN 1.6 g/dL (3.4-4.8); CALCIUM 10.1 mg/dL (8.4-11.0); CREATININE 3.32 mg/dL (0.55-1.30); POTASSIUM 3.2 mmol/L (3.5-5.1); TOTAL BILIRUBIN 0.4 mg/dL (0.0-1.0)
--- NOTE | 2019-07-15 07:40 | NUR ---
AM rounds: Patient is non verbal, opens eyes to verbal stimuli. Trach portex size 7 with humidified O2 via mask 40% at 10 li/min. No tracheal bleeding noted. NO cough, breathing is even and regular. Right subclavian permacath is intact, ports covered with sterile dressing. GT feeding of Nephro at 30 cc/hr, no gastric residual. Head of the bed is elevated at 35 degrees for aspiration precautions. Safety precautions maintained.
[2019-07-15 08:50] VITALS: BP_SYST 142
[2019-07-15] MEDS ORDERED: VANCOMYCIN HCL 1 GM/NS PREMIX 250 ML IV ONE (09:00)
[2019-07-15] MEDS: BALSAM PERU/CASTOR OIL 60 GM OINT...G. TP SCH (09:38)
[2019-07-15] MEDS: VANCOMYCIN HCL ORAL SOLUTION 250 MG/5 ML, 80 ML PO SCH (09:38)
[2019-07-15] MEDS: VALPROIC ACID ORAL SYRUP 250 MG/5 ML UDC GT SCH ×4 (09:39→20:43)
[2019-07-15] MEDS: PANTOPRAZOLE SODIUM 40 MG/VIAL (PROTONIX) IVP SCH (09:39)
[2019-07-15] MEDS: CHOLESTYRAMINE/SUCROSE 4 GM/PACKET GT SCH (09:39)
[2019-07-15] MEDS: FOLIC ACID 1 MG TABLET GT SCH (09:39)
[2019-07-15] MEDS: POTASSIUM CHLORIDE 20 MEQ/PKT PACKET PO SCH (09:40)
[2019-07-15] MEDS: METOPROLOL TARTRATE 50 MG TABLET GT SCH ×2 (09:40→20:44)
[2019-07-15] MEDS: LevETIRAcetam 500 MG/5 ML UDC ORAL LIQUID GT SCH ×2 (10:00→20:44)
--- NOTE | 2019-07-15 10:00 | NUR ---
Call from [place] (parker Cotter) Received a call from [place]. Patient will be evaluated for LTAC now due to unstable WBC.
[2019-07-15 11:11] VITALS: BP_SYST 115
--- NOTE | 2019-07-15 11:27 | NUR ---
Discharge Planning: DCP faxed updated clinicals to Virginia Argueta (f [phone] p [phone]) med list and progress notes. DCP to follow up
[2019-07-15] MEDS: INSULIN LISPRO SLIDING SCALE 100 UNITS/ML VIAL (humaLOG) SUBCUT PRN ×2 (11:36→23:51)
[2019-07-15] MEDS: MICAFUNGIN SODIUM 100 MG in NS 100 ML IV SCH (11:54)
--- NOTE | 2019-07-15 12:00 | NUR ---
DC planning: informed Izabel at bedside that the referral is being review for Sabrina Walsh-- Izabel agreed with the POC
[2019-07-15 15:23] VITALS: BP_SYST 114
--- NOTE | 2019-07-15 15:59 | NUR ---
SS NOTES: spoke with John Leone with @ [phone], no auth is required for transport form hospital to LTAC, ref call# [id number]. Ambulance [facility] Information: (arranged with Sunita) Medic-[facility] medicinal plant picker time: 7PM ALS going to [facility], room 510. Packet on unit.
[2019-07-15 16:09] VITALS: BP_SYST 95
--- NOTE | 2019-07-15 16:11 | NUR ---
[facility]: Pt is accepted per [place], she will be getting the room assignment by the end of shift. She asked to put ambulance on Will Call. --Antionette love made aware. >> Per valente Barney Jin Mart provided the auth to [facility] for first 7 days initial admission auth ref# [id number]. Izabel/mother made aware via phone # [phone], she agreed with the transfer tonight. Addendum: 07/15/19 at 1617 by Winsome Conley RN DR ePterson and JUDY Ortiz made aware.
--- NOTE | 2019-07-15 17:49 | NUR ---
Ambulance Cancellation: Spoke with Urszula ([employer]) at to cancel medicinal plant picker. Addendum: 07/15/19 at 0503 by Diana Johnson RN Patient's father is notified of discharge cancellation.
--- NOTE | 2019-07-15 18:22 | NUR ---
End of shift: Needs attended. No change in assessment. Made [place] aware that patient will not be transferred tonight due to high WBC.
--- NOTE | 2019-07-15 19:20 | NUR ---
OPENING NOTES RECEIVED PATIENT AWAKE IN BED. BREATHING UNLABORED ON T-COLLAR 40%. GT FEEDING INFUSING ORDERED. BED IN LOWEST LOCKED POSITION. SEIZURE PRECAUTIONS IN PLACED.
[2019-07-15 20:41] VITALS: BP_SYST 128
[2019-07-15] MEDS: TEMAZEPAM 7.5 MG CAPSULE GT SCH (20:44)
[2019-07-15] MEDS: INSULIN GLARGINE 100 UNITS/ML 10 ML VIAL SUBCUT SCH (20:52)
--- NOTE | 2019-07-15 20:52 | NUR ---
MED PASS PATIENT DUE MEDICATIONS GIVEN. GT FEEDING NO RESIDUAL OBTAINED. VITAL SIGNS STABLE.
--- NOTE | 2019-07-15 21:52 | NUR ---
ATB PATIENT DUE ANTIBIOTIC INFUSED. IV LINE INTACT AND PATENT TO LEFT HAND.
--- NOTE | 2019-07-15 23:51 | NUR ---
BLOOD SUGAR ROUTINE FINGER STICK SUGAR 176 COVERED WITH 2 UNITS OF HUMALOG. GT FEEDING NO RESIDUAL FREE WATER FLUSH DONE.
[2019-07-16] MEDS: IPRATROPIUM BROM 0.5 MG/2.5 ML VIAL.NEB (ATROVENT) INH SCH ×3 (01:14→13:28)
[2019-07-16] MEDS: LevALBUTEROL HCL 1.25 MG/0.5 ML *CONC.* VIAL.NEB (XOPENEX CONC.) INH SCH ×3 (01:14→13:28)
[2019-07-16 01:33] VITALS: BP_SYST 145
--- NOTE | 2019-07-16 01:45 | NUR ---
ROUNDS PATIENT BREATHING UNLABORED. VITAL SIGNS STABLE. FATHER AT BEDSIDE.
[2019-07-16] MEDS: HYDROCORTISONE SOD SUCC 100 MG/2 ML VIAL IVP SCH (05:03)
[2019-07-16] MEDS: PIPERACILLIN/TAZO 4.5GM/DEX-IS 100 ML IV SCH (05:04)
[2019-07-16] MEDS: LEVOTHYROXINE SODIUM 0.025 MG TABLET GT SCH (05:04)
--- NOTE | 2019-07-16 05:07 | NUR ---
MED PASS PATIENT DUE MEDICATIONS GIVEN. GT FEEDING NO RESIDUAL OBTAINED. AM FINGER STICK SUGAR 126. NO COVERAGE NEEDED.
[2019-07-16 06:35] LABS: BASOPHILS # (AUTO) 0.1 K/uL (0.0-0.2); BASOPHILS % (AUTO) 0.5 % (0.0-2.0); EOSINOPHILS # (AUTO) 0.1 K/uL (0.0-0.4); EOSINOPHILS % (AUTO) 0.5 % (0.0-4.0); HEMATOCRIT 24.9 % (36-54); HEMOGLOBIN 8.3 g/dL (14.0-18.0); LYMPHOCYTES # (AUTO) 2.9 K/uL (1.0-5.5); LYMPHOCYTES % (AUTO) 11.1 % (20.5-51.5); MEAN CORPUSCULAR HEMOGLOBIN 30 pg (27-31); MEAN CORPUSCULAR HGB CONC 33 % (32-36); MEAN CORPUSCULAR VOLUME 90 fL (79.0-98.0); MONOCYTES # (AUTO) 2.4 K/uL (0.0-1.0); MONOCYTES % (AUTO) 9.2 % (1.7-9.3); NEUTROPHILS # (AUTO) 20.8 K/uL (1.8-7.7); NEUTROPHILS % (AUTO) 78.7 % (40.0-70.0); PLATELET COUNT (AUTO) 500 K/uL (130-430); RED BLOOD CELL COUNT(AUTO) 2.78 MIL/uL (4.2-6.2); RED CELL DISTRIBUTION WIDTH 16.5 % (9.0-15.0); WHITE BLOOD COUNT (AUTO) 26.4 K/uL (4.8-10.8)
[2019-07-16 06:38] LABS: CALCIUM 10.4 mg/dL (8.4-11.0); CREATININE 4.11 mg/dL (0.55-1.30); POTASSIUM 3.1 mmol/L (3.5-5.1)
--- NOTE | 2019-07-16 06:59 | NUR ---
CLOSING NOTES PATIENT BREATHING UNLABORED ON T-COLLAR 40%. GT FEEDING TOLERATED. PATIENT NEEDS ATTENDED.
--- NOTE | 2019-07-16 07:38 | NUR ---
AM ROUNDS: PATIENT OPENS EYES,FEELS COLD,WARM BLANKET GIVEN. COMFY THIS TIME. ON TRACH COLLAR,FIO2=40%.RIGHT PERMA CATHETER,DRESSING CLEAN AND DRY.IV ANTIBIOTICS RUNNING AT LEFT HAND. NEPHRO FEEDS RUNNING AT 30CC/H.BED LOCKED AT LOWEST POSITION. BILATERAL PADDED SIDE RAILS ON FOR SEIZURE PRECAUTION. CONTINUE TO MONITOR. Addendum: 07/16/19 at 0758 by Flakita Sanderson RN ADDED NOTES: HEAD ELEVATED 30 DEGREES,ASPIRATION PRECAUTION RENDERED.
--- NOTE | 2019-07-16 09:20 | NUR ---
HD: HEMODIALYSIS STARTED BY LILIANA YAP DIALYSIS NURSE. STABLE DURING HD.
[2019-07-16 09:27] VITALS: BP_SYST 136; BP_SYST 170
[2019-07-16] MEDS: POTASSIUM CHLORIDE 20 MEQ/PKT PACKET PO SCH (09:37)
[2019-07-16] MEDS: CHOLESTYRAMINE/SUCROSE 4 GM/PACKET GT SCH (09:37)
[2019-07-16] MEDS: LevETIRAcetam 500 MG/5 ML UDC ORAL LIQUID GT SCH (09:38)
[2019-07-16] MEDS: BALSAM PERU/CASTOR OIL 60 GM OINT...G. TP SCH (09:38)
[2019-07-16] MEDS: PANTOPRAZOLE SODIUM 40 MG/VIAL (PROTONIX) IVP SCH (09:38)
[2019-07-16] MEDS: FOLIC ACID 1 MG TABLET GT SCH (09:38)
[2019-07-16] MEDS: VALPROIC ACID ORAL SYRUP 250 MG/5 ML UDC GT SCH ×2 (09:39→13:44)
--- NOTE | 2019-07-16 11:14 | NUR ---
PHYSICAL THERAPY TREATMENT FOR PROM EXERCISES TO ALL EXTREMITIES WILL CONTINUE ONCE DAILY X 3 DAYS WEEKLY X 2 WEEKS. PATIENT REMAINS AT HIS PRIOR LEVEL OF FUNCTIONAL MOBILITY.
[2019-07-16] MEDS: MICAFUNGIN SODIUM 100 MG in NS 100 ML IV SCH (11:25)
[2019-07-16] MEDS: INSULIN LISPRO SLIDING SCALE 100 UNITS/ML VIAL (humaLOG) SUBCUT PRN (11:35)
--- NOTE | 2019-07-16 11:41 | NUR ---
blood sugar: blood sugar taken ,with insulin given per sliding scale. no problem.
[2019-07-16 12:00] VITALS: BP_SYST 112
--- NOTE | 2019-07-16 12:05 | NUR ---
DC planning : Received new dc order from dr. Peterson: ok to dc pt to LTAC if cleared by ID. Per Dr. Montana's progress note: the pt is cleared for transfer to LTAC. JUDY Martin made aware, she requested to set up the ambulance by 3 pm , after the pt is done with HD.
--- NOTE | 2019-07-16 12:30 | NUR ---
HD FINISHED: HD OUT=1.6 LITERS . STABLE VITAL SIGNS,AFEBRILE.
--- NOTE | 2019-07-16 14:00 | NUR ---
REPORT: [facility] GIV[facility] TO ED Gonzalez [facility].
[2019-07-16 14:02] VITALS: BP_SYST 112
[2019-07-16] MEDS: MORPHINE 2 MG/ML INJ. SYRINGE IVP PRN (14:54)
[2019-07-16 15:01] VITALS: BP_SYST 112
--- NOTE | 2019-07-16 15:25 | NUR ---
Transfer Notes: Transfer packet given to [facility] ambulance. Keep laureano and iv to saline lock as ordered.Right subclavian perma catheter intact. Continue trach collar at 10 liters/min. Family aware of transfer. Medic 1 transported patient to [facility] in stable condition.
[2019-07-16] MEDS ORDERED: HYDROCORTISONE 10 MG TABLET (CORTEF) PO SCH (21:00)
== END 2019-07-16 15:25 | DRG 4 ==
LOC: SED 08:26 → MERGE 11:48 → STU 11:48 → SIC 05-19 14:02 → STU 07-01 17:59
PROVIDERS: ADMIT Internal Medicine; ATTEND Internal Medicine
PROC: 5A1955Z Respiratory Ventilation, Greater than 96 Consecutive Hours (ICD-10-PCS; principal; 2019-05-19)
PROC: 0BH17EZ Insertion of Endotracheal Airway into Trachea, Via Natural or Artificial Opening (ICD-10-PCS; 2019-05-19)
PROC: 0BH17EZ Insertion of Endotracheal Airway into Trachea, Via Natural or Artificial Opening (ICD-10-PCS; 2019-06-01)
PROC: 5A1955Z Respiratory Ventilation, Greater than 96 Consecutive Hours (ICD-10-PCS; 2019-06-01)
PROC: 05JY3ZZ Inspection of Upper Vein, Percutaneous Approach (ICD-10-PCS; 2019-06-05)
PROC: 02HV33Z Insertion of Infusion Device into Superior Vena Cava, Percutaneous Approach (ICD-10-PCS; 2019-06-07)
PROC: B548ZZA Ultrasonography of Superior Vena Cava, Guidance (ICD-10-PCS; 2019-06-07)
PROC: B5181ZA Fluoroscopy of Superior Vena Cava using Low Osmolar Contrast, Guidance (ICD-10-PCS; 2019-06-07)
PROC: 0B110F4 Bypass Trachea to Cutaneous with Tracheostomy Device, Open Approach (ICD-10-PCS; 2019-06-15)
PROC: 5A1955Z Respiratory Ventilation, Greater than 96 Consecutive Hours (ICD-10-PCS; 2019-06-15)
PROC: 02HV33Z Insertion of Infusion Device into Superior Vena Cava, Percutaneous Approach (ICD-10-PCS; 2019-06-19)
PROC: B5181ZA Fluoroscopy of Superior Vena Cava using Low Osmolar Contrast, Guidance (ICD-10-PCS; 2019-06-19)
PROC: 5A1D70Z Performance of Urinary Filtration, Intermittent, Less than 6 Hours Per Day (ICD-10-PCS; 2019-06-19)
PROC: 5A1D70Z Performance of Urinary Filtration, Intermittent, Less than 6 Hours Per Day (ICD-10-PCS; 2019-06-20)
PROC: 30233N1 Transfusion of Nonautologous Red Blood Cells into Peripheral Vein, Percutaneous Approach (ICD-10-PCS; 2019-06-21)
PROC: 5A1D70Z Performance of Urinary Filtration, Intermittent, Less than 6 Hours Per Day (ICD-10-PCS; 2019-06-21)
PROC: 5A1D70Z Performance of Urinary Filtration, Intermittent, Less than 6 Hours Per Day (ICD-10-PCS; 2019-06-22)
PROC: 5A1D70Z Performance of Urinary Filtration, Intermittent, Less than 6 Hours Per Day (ICD-10-PCS; 2019-06-24)
PROC: 5A1D70Z Performance of Urinary Filtration, Intermittent, Less than 6 Hours Per Day (ICD-10-PCS; 2019-06-26)
PROC: 5A1D70Z Performance of Urinary Filtration, Intermittent, Less than 6 Hours Per Day (ICD-10-PCS; 2019-06-28)
PROC: 5A1D70Z Performance of Urinary Filtration, Intermittent, Less than 6 Hours Per Day (ICD-10-PCS; 2019-06-29)
PROC: 5A1D70Z Performance of Urinary Filtration, Intermittent, Less than 6 Hours Per Day (ICD-10-PCS; 2019-07-01)
PROC: 5A1D70Z Performance of Urinary Filtration, Intermittent, Less than 6 Hours Per Day (ICD-10-PCS; 2019-07-03)
PROC: 5A1D70Z Performance of Urinary Filtration, Intermittent, Less than 6 Hours Per Day (ICD-10-PCS; 2019-07-05)
PROC: 0JH63XZ Insertion of Tunneled Vascular Access Device into Chest Subcutaneous Tissue and Fascia, Percutaneous Approach (ICD-10-PCS; 2019-07-06)
PROC: 02HV33Z Insertion of Infusion Device into Superior Vena Cava, Percutaneous Approach (ICD-10-PCS; 2019-07-06)
PROC: B5181ZA Fluoroscopy of Superior Vena Cava using Low Osmolar Contrast, Guidance (ICD-10-PCS; 2019-07-06)
PROC: 5A1D70Z Performance of Urinary Filtration, Intermittent, Less than 6 Hours Per Day (ICD-10-PCS; 2019-07-07)
PROC: 5A1D70Z Performance of Urinary Filtration, Intermittent, Less than 6 Hours Per Day (ICD-10-PCS; 2019-07-09)
PROC: 5A1D70Z Performance of Urinary Filtration, Intermittent, Less than 6 Hours Per Day (ICD-10-PCS; 2019-07-11)
PROC: 5A1D70Z Performance of Urinary Filtration, Intermittent, Less than 6 Hours Per Day (ICD-10-PCS; 2019-07-14)
PROC: 5A1D70Z Performance of Urinary Filtration, Intermittent, Less than 6 Hours Per Day (ICD-10-PCS; 2019-07-16)
DX: A41.9 Sepsis, unspecified organism (principal); J69.0 Pneumonitis due to inhalation of food and vomit; N18.6 End stage renal disease; R65.21 Severe sepsis with septic shock; J96.22 Acute and chronic respiratory failure with hypercapnia; K85.90 Acute pancreatitis without necrosis or infection, unspecified; N17.0 Acute kidney failure with tubular necrosis; E43 Unspecified severe protein-calorie malnutrition; I50.43 Acute on chronic combined systolic (congestive) and diastolic (congestive) heart failure; E23.0 Hypopituitarism; E27.40 Unspecified adrenocortical insufficiency; E71.529 X-linked adrenoleukodystrophy, unspecified type; E87.4 Mixed disorder of acid-base balance; Z99.11 Dependence on respirator [ventilator] status; I13.2 Hypertensive heart and chronic kidney disease with heart failure and with stage 5 chronic kidney disease, or end stage renal disease; D64.9 Anemia, unspecified; E03.9 Hypothyroidism, unspecified; E11.22 Type 2 diabetes mellitus with diabetic chronic kidney disease; E11.65 Type 2 diabetes mellitus with hyperglycemia; E86.0 Dehydration; E87.5 Hyperkalemia; F79 Unspecified intellectual disabilities; G40.909 Epilepsy, unspecified, not intractable, without status epilepticus; I34.0 Nonrheumatic mitral (valve) insufficiency; M85.80 Other specified disorders of bone density and structure, unspecified site; X58.XXXA Exposure to other specified factors, initial encounter; K52.9 Noninfective gastroenteritis and colitis, unspecified; E78.5 Hyperlipidemia, unspecified; R13.10 Dysphagia, unspecified; T78.3XXA Angioneurotic edema, initial encounter; Z74.01 Bed confinement status; Z79.4 Long term (current) use of insulin; Z79.52 Long term (current) use of systemic steroids; Z85.821 Personal history of Merkel cell carcinoma; Z85.828 Personal history of other malignant neoplasm of skin; Z92.21 Personal history of antineoplastic chemotherapy; Z99.2 Dependence on renal dialysis; Z99.3 Dependence on wheelchair; Z68.22 Body mass index [BMI] 22.0-22.9, adult; Z79.899 Other long term (current) drug therapy; Y93.89 Activity, other specified; Y92.89 Other specified places as the place of occurrence of the external cause; Y99.8 Other external cause status
CPT/HCPCS: 36415; 36600; 70450-TC; 70487; 70491-TC; 71045; 71250-TC; 71260-TC; 71275; 73560-TC; 74018; 76000; 76770; 80048; 80053; 80061; 80074; 80164-TC; 80202-TC; 81000-TC; 82150-TC; 82272; 82607; 82728; 82746; 82785; 82803-TC; 82962; 83036; 83540-TC; 83550-TC; 83605; 83690-TC; 83735-TC; 83880; 84100-TC; 84439; 84443-TC; 85007; 85025; 85027; 85379; 85610-TC; 85651-TC; 85730-TC; 86160; 86606; 86635; 86886; 86900; 86901; 86920; 87040-TC; 87045-TC; 87046; 87070-TC; 87081; 87086; 87186-TC; 87205-TC; 87230-TC; 89055; 90935; 90937; 93005; 93306; 94002; 94003; 94640; 94668; 94760; 96365; 96375; 97110-GP; 99285; C1750; C1751; C1769; C1782; C1887; C9113; G0378; J0171; J0360; J0690; J0692; J0696; J0885; J1030; J1200; J1450; J1644; J1650; J1720; J1815; J1940; J1953; J2020; J2060; J2185; J2248; J2250; J2270; J2543; J2704; J2916; J2930; J2997; J3010; J3370; J3465; J3475; J3480; J3490; J7030; J7040; J7050; J7060; J7120; J7608; J7612; J7613; J7614; P9021; P9046; Q9967